=== PATIENT | male | born 1960 | race Caucasian/White ===

== ENCOUNTER 2020-10-04 10:14 | Inpatient (IN) | payer OTHER, SELFPAY ==
[2020-10-04] VITALS (11 sets, daily range): BP systolic 164–179; BP diastolic 97–115; PULSE 87–101; RESP 15–24; TEMP 36.2–37.6; O2SAT 94–100; BMI 33.7; BMI 33.5
--- NOTE | ~2020-10-04 | US_ITS ---
EXAMINATION:US venous doppler LE BI INDICATION:Elevated d-dimer. Dyspnea. Leg tenderness. TECHNIQUE: Multiple grayscale, color flow and Doppler images of the right and left lower extremity de ep venous systems were obtained and reviewed. COMPARISON:Ultrasound dated 05/19/2011 FINDINGS: The common femoral, superficial femoral and popliteal veins demonstrate normal respiratory variation, augmentation and compressibility. Color flow is also seen within the posterior tibial, pe roneal, greater saphenous and profunda veins. IMPRESSION: 1: No lower extremity deep venous thrombosis. Reviewed, dictated and finalized at location B.
--- NOTE | ~2020-10-04 | XR_ITS ---
EXAMINATION: XR chest 2V EXAM DATE: 10/04/2020 11:42 INDICATION: Shortness of breath. TECHNIQUE: Frontal and lateral projections of the chest obtained and reviewed. Comparison is made to prior examination from 06/28/2018. FINDINGS: There is a dual lead pacemaker/AICD seen with leads projecting over the expected locations of the right atrial appendage and right ventricle. The lungs are clear. There are no pleural effusi ons. Cardiomediastinal silhouette is normal. There is no pneumothorax suspected. The bones and sof t tissues are unremarkable. IMPRESSION: No acute cardiopulmonary findings. Reviewed, dictated and finalized at location A.
--- NOTE | ~2020-10-04 | XR_ITS ---
EXAMINATION: XR foot RT min 3V EXAM DATE: 10/04/2020 13:28 INDICATION: Wound to bottom of foot, along distal 1st metatarsal. TECHNIQUE: Right foot dorsoplantar, lateral and oblique projections obtained and reviewed. There is no prior study for comparison. FINDINGS: Right metatarsal bones unremarkable. There are no bony erosions identified. There is deep soft tissue ulceration below the 1st metatarsal head. There are no acute fractures or dislocations id entified. There is no subcutaneous gas. There are no radiopaque foreign bodies. 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 IMPRESSION: Soft tissue ulceration. No findings to suggest osteomyelitis. Reviewed, dictated and finalized at location A.
--- NOTE | ~2020-10-04 | CT_ITS ---
EXAMINATION: CTA chest PE protocol EXAM DATE: 10/04/2020 15:29 INDICATION: Shortness of breath and elevated d-dimer. TECHNIQUE: Spiral CTA of the chest (pulmonary arteries) was performed with 100 cc Omnipaque 350 intr avenous contrast injection. Images were acquired during the pulmonary arterial phase. Coronal maxi mum intensity projection 3D-reconstructions were created by the technologist on dedicated workstation . Axial, coronal and sagittal reformatted images were reviewed. The dose-length product (DLP) for t his examination was 939.59 mGy-cm. The exposure was tailored according to patient size (auto mA exp osure control), and iterative reconstruction (ASIR) was used as additional dose reduction technique. There is no prior study for comparison. FINDINGS: Pulmonary arteries are well opacified and without intraluminal filling defects. There is b orderline cardiomegaly and pulmonary vascular congestion. There are small bilateral pleural effusions . There may be mild pulmonary edema. Pacemaker/AICD device. No thoracic aortic dissection. There is 5 mm right upper lobe groundglass nodule on image 38. Tracheobronchial tree is patent. There is no mediastinal, hilar or axillary lymphadenopathy. There is no pneumothorax. Probable 4 mm left nep hrolithiasis. There are hepatic cysts. There is mild to moderate thoracic spondylosis without osteob lastic or osteolytic lesions identified. IMPRESSION: 1. No pulmonary emboli. 2. Possible mild CHF exacerbation. 3. Small pleural effusions. Reviewed, dictated and finalized at location A.
--- NOTE | 2020-10-04 10:19 | ECG_ITS ---
Measurements Intervals [place] Rate: 87 P: 94 DE: 182 QRS: -63 QRSD: 197 T: 112 QT: 464 QTc: 561 Interpretive Statements ELECTRONIC ATRIAL PACEMAKER WITH INHIBITION ELECTRONIC VENTRICULAR PACEMAKER VENTRICULAR PREMATURE COMPLEX NO FURTHER INTERPRETATION IS POSSIBLE ATYPICAL ECG Electronically Signed On 10-04-2020 10:26:33 CDT by Peewee Vargas D.O.
[2020-10-04 10:56] LABS: Basophils Absolute Auto 0.1 K/mm3 (0.0-0.1); Eosinophils Absolute Auto 0.1 K/mm3 (0-0.3); Eosinophils Percent Auto 1.9 % (0-4.4); Hematocrit 42.2 % (42.0-52.0); Hemoglobin 13.9 g/dL (14.0-18.0); Immature Granulocyte Absolute 0.03 K/mm3 (0.00-0.031); Immature Granulocyte Percent A 0.4 % (0-0.5); Lymphocytes Absolute Auto 1.17 K/mm3 (0.9-3.2); Lymphocytes Percent Auto 16.9 % (18.3-44.2); Mean Corpuscular HGB Conc 32.9 g/dl (32-36); Mean Corpuscular Hemoglobin 33.4 pg (26-34); Mean Corpuscular Volume 101.4 fl (80-100); Mean Platelet Volume 9.6 fl (7.4-10.4); Monocytes Absolute Auto 0.5 K/mm3 (0.1-0.6); Monocytes Percent Auto 7.6 % (2.6-8.5); Neutrophils Percent Auto 72.2 % (45.5-73.1); Platelet Count Result 281 k/mm3 (150-375); Red Blood Count 4.16 M/mm3 (4.6-6.20); Red Cell Distribution Width 14.7 % (11.5-14.5); White Blood Count 6.9 K/mm3 (4.5-10.0)
[2020-10-04 11:11] LABS: Anion Gap 6 mmol/L (8-16); Blood Urea Nitrogen 8 mg/dL (9-20); Calcium 8.4 mg/dL (8.4-10.2); Carbon Dioxide 33 mmol/L (22-30); Chloride 103 mmol/L (98-107); Estimated CRCL calculation 70 ml/min; Estimated Glomerular Filt Rate 56; Glucose 135 mg/dL (75-110); INR 1.1; Potassium 3.4 mmol/L (3.4-5.0); Prothrombin Time 14.8 Seconds (11.1-14.7); Sodium 142 mmol/L (137-145)
[2020-10-04 11:13] LABS: Partial Thromboplastin Time 28.4 SECONDS (22.3-36.8)
[2020-10-04 11:29] LABS: Troponin I 0.024 ng/mL (0.000-0.034)
[2020-10-04 12:50] LABS: NT Pro B Type Natriuretic Pept 4300 pg/mL (5-100)
--- NOTE | 2020-10-04 13:27 | ED.SOB ---
HPI - SOB/Dyspnea General Chief Complaint: Shortness of Breath/Dyspnea Stated Complaint: SOB Time Seen by Provider: 10/04/20 12:21 Source: patient Mode of arrival: ambulatory Limitations: no limitations History of Present Illness HPI Narrative: 60-year-old male History of diabetes, A. fib, pacer, and stents Presents for evaluation of progressive dyspnea over the last week or 2 Particularly bothersome at night when he is trying to sleep he feels like his sinuses start draining and then he starts coughing and he wakes up very short of breath He does not have a cough or a fever He denies chest pain He does have some degree of chronic swelling in both of his legs which is minimally changed if at all He did also notes a cut on the bottom of his right foot since the start of the year which he says has been slow to heal and his neighbor's been bothering him to get it looked at Related Data Home Medications Medication Instructions Recorded Confirmed aspirin 81 mg PO DAILY 10/04/20 atorvastatin 20 mg PO DAILY 10/04/20 cetirizine mg 10/04/20 10/04/20 diltiazem HCl 60 mg PO TID 10/04/20 montelukast 10 mg PO HS 10/04/20 tamsulosin mg PO 10/04/20 Allergies Allergy/AdvReac Type Severity Reaction Status Date / Time No Known Allergies Allergy Verified 10/04/20 11:52 Review of Systems Review of Systems: All systems reviewed & are unremarkable except as noted in HPI and below Constitutional: Constitutional: Reports no additional constitutional complaints, Denies chills, Denies fever(s) and Denies headache(s) Eyes: Eyes: Reports no additional eye complaints and Denies change in vision ENT: Denies headache(s), Reports nasal congestion and Denies sore throat Cardiovascular: Cardiovascular: Denies chest pain and Denies dyspnea Respiratory: Respiratory: Denies cough and Reports dyspnea Gastrointestinal: Gastrointestinal: Denies abdominal pain, Denies diarrhea and Denies vomiting Genitourinary: Genitourinary: Denies dysuria and Denies urinary frequency Musculoskeletal: Musculoskeletal: Denies deformity, Denies arthralgias, Denies joint swelling and Denies numbness Integumentary/Breasts: Skin/Breast: Denies rash, Reports skin ulcer and Denies wounds Neurologic: Denies headache(s), Denies focal weakness and Denies numbness Psychiatric: Psychiatric: Reports no additional psychiatric complaints Endocrine: Endocrine: Reports no additional endocrine complaints Hematologic/Lymphatic: Hematologic/Lymphatic: Reports no additional hematologic/lymphatic complaints Allergic/Immunologic: Allergic/Immunologic: Reports no additional allergic/immunologic complaints [facility] Family History Family History (Updated 12/21/18 @ 09:21 by DOCTOR UNKNOWN) Mother Family history of blood dyscrasia Social History Social History Smoking status: Light tobacco smoker Second hand tobacco smoke exposure: No Alcohol intake: current Exam Const: General: cooperative and alert Orientation/consciousness: patient oriented x3 (alert) HENMT: Head: normal to inspection, normocephalic and atraumatic Ears: external ears normal General nose exam: no epistaxis Eyes: Conjunctivae: conjunctivae normal EOM: EOMs intact bilaterally Neck: Neck: normal visual inspection, supple and no JVD Other: No JVD Chest: Chest palpation & inspection: no tenderness Resp: Effort & Inspection: normal respiratory effort and not labored Auscultation: clear to auscultation bilaterally, no rales, no rhonchi, no wheezes and other (BS =) Cardio: Rate: regular rate Rhythm: regular rhythm Heart sounds: no murmurs GI: GI Palp: Yes Soft to palpation and No Tenderness to palpation present (GI) Skin: General skin exam: normal color and no rashes or lesions noted Neuro: General: patient oriented x3 (alert) and moves all extremities Speech: normal speech Extrem: Other: There is 1+ edema bilaterally Venous stasis changes on the right P
--- NOTE | 2020-10-04 14:08 | PC.NURSE ---
Pt requesting oxygen administration for comfort, states he is feeling SOB. Placed on 1L NC at this time.
[2020-10-04 14:45] LABS: D Dimer 2.19 ug/mL (<0.48)
[2020-10-04 15:16] LABS: Erythrocyte Sedimentation Rate 64 mm/hr (0-20)
[2020-10-04 15:55] LABS: Hemoglobin A1C 5.6 % (<5.7)
--- NOTE | 2020-10-04 15:57 | PC.NURSE ---
EDP made aware of patient's consistent high BP. No new orders at this time.
[2020-10-04] MEDS: dilTIAZem HCL 60 MG TABLET PO (16:22)
--- NOTE | 2020-10-04 17:08 | PC.NURSE ---
Spoke with Lakeshia on 3rd Med/Surg and attempted to give report. This RN informed the nurse taking report was in the middle of a discharge and would be done pretty soon . States they will call when she is finished.
[2020-10-04 17:39] LABS: Troponin I 0.021 ng/mL (0.000-0.034)
--- NOTE | 2020-10-04 18:09 | ADMGEN ---
This patient, Joselito Lamar Jr., was admitted to [facility] Surg Room 331-01. Patient/family oriented to hospital policies and general routines including ID bracelet, bed and alarms, visiting hours, pain management, procedures, bathroom and other care routines, personal items, smoking policy, room service/diet, and visiting hours. Information on how to activate the Rapid Response Team has been discussed. Patient/Family are encouraged to report perceived risks to care and to ask questions if they do not understand what they are told or what they should do.
[2020-10-04 18:31] LABS: CRP 1.5 mg/dL (<1.0)
[2020-10-04 20:38] LABS: Glucose Point of Care 164 (65-105)
[2020-10-04] MEDS: MONTELUKAST SODIUM 10 MG TABLET PO (23:20)
[2020-10-04] MEDS: FUROSEMIDE INJ 40 MG/4 ML VIAL IV PUSH (23:20)
[2020-10-04] MEDS: lisinopriL 20 MG TABLET PO (23:20)
[2020-10-05] VITALS (9 sets, daily range): BP systolic 121–177; BP diastolic 68–97; PULSE 78–96; RESP 16–18; TEMP 36.4–37.3; O2SAT 94–98
--- NOTE | 2020-10-05 03:05 | PM.IMHP ---
H&P: HPI History of Present Illness Date/Time: 10/05/20 03:05 Chief Complaint: Shortness of breath Narrative: 60-year-old male with past medical history of atrial fibrillation, hypertension and diabetes who presented to the ER due to increasing shortness of breath. The patient reports that he has not felt well for about 1 month. He has been feeling more fatigued and having some mild shortness of breath. Over the last 2 weeks he is been noticing orthopnea, paroxysmal nocturnal dyspnea and increasing lower extremity swelling. He denies any chest pain. He reports that he has been trying to sleep sitting up vanc as when he lays down he thinks his sinuses start draining any start coughing. He denies any fevers or chills. He has not had any known ill contacts. He lives alone. He has noticed that his lower extremities have been more swollen since June but worsening over the last couple of weeks. He denies a history of CHF in fact had an echocardiogram through [facility] July of 2019 with normal ejection fraction. He had an echo in 2015 that demonstrated grade 1 diastolic dysfunction. He reports that he is not on any Lasix at home. He has also not been taking his talus am as directed because it was causing him to have some upset stomach. He does have history of snoring. He does not know if he stops breathing at night. He has never been tested for sleep apnea. He does have a wound to his right foot. He reports that back in June he stepped on a piece of glass. 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 He has not noticed any increased drainage from the wound. He has not had any fevers or chills. He reports chronic pins and needle sensation in his feet due to his diabetic peripheral neuropathy. He reports that his Accu-Cheks are usually around 120. He does not know what his last hemoglobin A1c value. Review of Systems Review of Systems: Narrative: 12 systems were reviewed with pertinent positives and negatives per HPI. Except as documented in the HPI, all other systems were reviewed and are negative. [facility] Past Medical History Medical History (Updated 10/05/20 @ 04:48 by Chantell James DO) Anxiety Bilateral cataracts Maturing BPH loc w urin obs/LUTS Chronic atrial fibrillation Coronary artery disease involving levelock heart without angina pectoris Depression Diabetes mellitus Diabetic peripheral neuropathy Dyslipidemia Essential hypertension Gout Kidney stones Parkinsons disease Surgical History Surgical History (Updated 10/05/20 @ 04:40 by Chantell James DO) History of bilateral carpal tunnel release History of heart artery stent (~2008) History of permanent cardiac pacemaker placement (~2015) Worth Hx of tonsillectomy S/P cubital tunnel release Family History Family History Mother Family history of blood dyscrasia Social History Social History (Updated 10/05/20 @ 04:44 by Chantell James DO) Social History: He is and lives alone. He has 4 children 1 of which in a motor vehicle collision. He used to work for a [employer] company but is now on disability. 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 He smokes about 10 cigarettes a day and has smoked since his early 20s. He denies any significant alcohol use. Primary care physician: Dr. Jay Hinkle Code status: Full code Surrogate decision maker: Aniyah Orr (sister) Years smoked: 25 Smoking status: Current some day smoker Tobacco type: cigarettes Second hand tobacco smoke exposure: No Alcohol intake: current Drinks per week: 3 Substance use: never Spiritual care concerns: No Meds Home Medications and Allergies Home Medications Medication Instructions [place]
[2020-10-05] MEDS: hydrALAZINE HCL 20 MG/ML VIAL 10 MG IV PUSH (05:04)
[2020-10-05 06:22] LABS: Hematocrit 44.6 % (42.0-52.0); Mean Corpuscular HGB Conc 33.6 g/dl (32-36); Mean Corpuscular Volume 101.1 fl (80-100); Mean Platelet Volume 9.7 fl (7.4-10.4); Platelet Count Result 295 k/mm3 (150-375); Red Blood Count 4.41 M/mm3 (4.6-6.20); Red Cell Distribution Width 14.7 % (11.5-14.5); White Blood Count 7.8 K/mm3 (4.5-10.0)
[2020-10-05 06:38] LABS: Anion Gap 4 mmol/L (8-16); Blood Urea Nitrogen 8 mg/dL (9-20); Calcium 8.2 mg/dL (8.4-10.2); Carbon Dioxide 33 mmol/L (22-30); Chloride 100 mmol/L (98-107); Estimated CRCL calculation 70 ml/min; Estimated Glomerular Filt Rate 56; Glucose 130 mg/dL (75-110); Potassium 3.1 mmol/L (3.4-5.0); Sodium 137 mmol/L (137-145)
[2020-10-05 07:24] LABS: Hemoglobin A1C 5.8 % (<5.7)
[2020-10-05 08:10] LABS: Glucose Point of Care 105 (65-105)
[2020-10-05] MEDS: POTASSIUM CHLORIDE 20 MEQ TABLET 40 MEQ PO (09:20)
[2020-10-05] MEDS: ASPIRIN 81 MG ENTERIC TABLET PO (09:21)
[2020-10-05] MEDS: metFORMIN HCL 500 MG TABLET 1000 MG PO (09:21)
[2020-10-05] MEDS: ATORVASTATIN 20 MG TABLET PO (09:22)
[2020-10-05] MEDS: dilTIAZem HCL CD 180 MG CAP.ER.24H PO (09:22)
[2020-10-05] MEDS: FOLIC ACID 1 MG TABLET PO (09:23)
[2020-10-05] MEDS: MULTIVITAMINS THERAPEUTIC TAB (*BKC) 1 TABLET PO (09:24)
[2020-10-05] MEDS: MAGNESIUM OXIDE 400 MG TABLET PO ×2 (09:24→16:44)
[2020-10-05] MEDS: LORATADINE 10 MG TABLET PO (09:24)
[2020-10-05] MEDS: TAMSULOSIN HCL 0.4 MG CAPSULE PO (09:25)
[2020-10-05] MEDS: THIAMINE HCL 100 MG TABLET PO (09:25)
[2020-10-05] MEDS: lisinopriL 20 MG TABLET PO (09:27)
[2020-10-05] MEDS: FUROSEMIDE INJ 40 MG/4 ML VIAL IV PUSH ×2 (09:27→16:44)
[2020-10-05 12:11] LABS: Glucose Point of Care 101 (65-105)
--- NOTE | 2020-10-05 14:50 | PM.IMPN ---
Progress Note: A&P Assessment and Plan (1) CHF (congestive heart failure): Qualifiers: Heart failure chronicity: acute Heart failure type: unspecified Qualified Code(s): I50.9 - Heart failure, unspecified Code(s): I50.9 - Heart failure, unspecified Status: Acute Assessment and Plan: History and CTA consistent with CHF although patient does not have a history of this that I am aware of -he has a history of AFib, pacemaker and stents as well as diabetes which makes him high risk for CHF -will order echo, bnp 4300 -continue Lasix, it is improving his dyspnea on exertion and resolved his lower extremity edema -he has no chest pain at this time, troponins negative x3 -continue home aspirin (2) Uncontrolled hypertension: Code(s): I10 - Essential (primary) hypertension Status: Acute Assessment and Plan: Last blood pressure 141/91 -he was running higher earlier in the stay and was up to 179/97 at 1 point -continue home diltiazem -Lasix and lisinopril added at this time (3) Diabetic foot ulcer: Qualifiers: Diabetes mellitus type: type 2 Diabetic foot ulcer location: midfoot Laterality: right Non-pressure ulcer stage: with muscle involvement without evidence of necrosis Qualified Code(s): E11.621 - Type 2 diabetes mellitus with foot ulcer; L97.415 - Non-pressure chronic ulcer of right heel and midfoot with muscle involvement without evidence of necrosis Code(s): E11.621 - Type 2 diabetes mellitus with foot ulcer; L97.509 - Non-pressure chronic ulcer of other part of unspecified foot with unspecified severity Status: Acute Assessment and Plan: Await Wound care's recommendations -x-ray does not reveal any osteomyelitis, CRP only 1.5 -continue Zosyn at this time but narrow when indicated. Patient is having some diarrhea we associated with antibiotics. No C diff suspected (4) Diabetes mellitus: Code(s): E11.9 - Type 2 diabetes mellitus without complications Status: Inactive Assessment and Plan: Last glucose 101 -continue metformin -will controlled with an A1c of 5.8 (5) Chronic atrial fibrillation: Code(s): I48.20 - Chronic atrial fibrillation, unspecified Status: Acute Assessment and Plan: Paced rhythm on telemetry -continue Xarelto and diltiazem Additional Plan Because of the shortness of breath, patient being tested for COVID. Continue isolation until resulted. Time Spent With Patient Time with patient: 25 - 35 minutes Subjective Date/time seen: 10/05/20 14:50 Interval history: Pt is a 60-year-old male here for shortness of breath and dyspnea on exertion. Patient was seen today and states he is feeling better than yesterday. He is able to walk around without as much shortness of breath which is an improvement since the last few weeks. He continues to have an occasional dry cough but nothing significant. He is still not able to lay completely flat but again, feels better. His lower extremity edema has improved. He started having diarrhea since being here. He denies chest pain, fevers or chills. He has an ulcer at the bottom of his right foot. Review of Systems Review of Systems: All systems reviewed & are unremarkable except as noted in HPI and below Exam Narrative: Exam Narrative: General: Well developed well nourished patient in NAD HEENT: normocephalic Neck: supple Neuro: Alert and oriented x4 CV:RRR, telemetry showing paced rhythm Resp:CTA, no crackles heard on exam although disposable stethoscope lowers sensitivity Abd: Soft, non distended. No pain to palpation. Positive bowel sounds Extremities: Lower extremity shows chronic venous stasis discoloration and no edema. Ulcer noted on the plantar aspect of the right foot Objective Data Vital Signs Vital Signs: Vital Signs - 24 hr 10/04/20 14:55 10/04/20 16:19 10/04/20 17:04 Temperature Pulse Rate 9
[2020-10-05 14:59] LABS: SARS-CoV-2 RNA PCR Negative
[2020-10-05] MEDS: RIVAROXABAN 15 MG TABLET PO (16:45)
[2020-10-05 17:04] LABS: Glucose Point of Care 135 (65-105)
[2020-10-05] MEDS: SILVERGEL (ELTA) 45 ML 1 APPLIC TOPICAL (17:15)
[2020-10-05] MEDS: MONTELUKAST SODIUM 10 MG TABLET PO (20:20)
[2020-10-05 21:57] LABS: Glucose Point of Care 155 (65-105)
[2020-10-06] VITALS: PULSE 85
--- NOTE | 2020-10-06 | ECHO_ITS ---
Patient Info Name: Joselito Lamar Age: 60 years : 1960 Gender: Male Ht: 73 in Wt: 253 lbs BSA: 2.47 m2 HR: 103 bpm BP: 153 / 89 mmHg Heart Rhythm: Paced Technical Quality: Good Exam Date: 10/06/2020 8:17 AM Exam Location: [facility] Pulmonary Exam Room: 331 Patient Status: Inpatient Admit Date: 10/05/2020 Staff Ordering Physician: Nuha Owens PA-C Ship Steward: Melissa Solorzano RDCS Attending Provider: Nuha Owens PA-C Referring Physician: Graciela QUIGLEY; Exam Type: CA echo doppler color flow Study Info Indications - AFIB CHF PPM SOB Complete two-dimensional, color flow and Doppler transthoracic echocardiogram is performed. Summary 1. Complete two-dimensional, color flow and Doppler transthoracic echocardiogram is performed. 2. Left ventricular chamber dimension is mildly enlarged. 3. Left ventricular systolic function is moderately reduced, estimated at 35-40%. 4. Linear artifact in right ventricle suggestive of catheter(s), pacemaker lead(s), or ICD lead(s). 5. There is mild mitral valve regurgitation. Left Ventricle Left ventricular chamber dimension is mildly enlarged. Left ventricular systolic function is moderately reduced, estimated at 35-40%. The left ventricular diastolic function is indeterminate. Right Ventricle Right ventricular chamber dimension is normal. Linear artifact in right ventricle suggestive of catheter(s), pacemaker lead(s), or ICD lead(s). Left Atria Left atrial chamber dimension is mildly enlarged. Right Atria Right atrial chamber dimension is mildly enlarged. Linear artifact in the right atrium suggestive of catheter(s), pacemaker lead(s), or ICD lead(s). Aortic Valve The aortic valve is normal. Pulmonic Valve The pulmonic valve is normal. Mitral Valve The mitral valve has normal leaflets. There is mild mitral valve regurgitation. The mitral valve annulus is mildly calcified. Tricuspid Valve The tricuspid valve leaflets are normal. Pericardium/Pleural The pericardium appears normal. Aorta The aortic root size at the sinus of Valsalva is normal. Left Ventricular Outflow Tract Name Value Normal LVOT 2D LVOT Diameter 2.1 cm LVOT Doppler LVOT Peak Gradient 5 mmHg LVOT Mean Gradient 3 mmHg LVOT VTI 20 cm LVOT VTI/AV VTI Ratio 0.8 LVOT Stroke Volume 66 ml LVOT CO 16.1 l/min LVOT CI 6.5 l/min/m2 Pulmonic Valve Name Value Normal PV Doppler PV Peak Gradient 4 mmHg Mitral Valve Name Value Normal
[2020-10-06 04:00] VITALS: PULSE 82
[2020-10-06 06:00] VITALS: BP 153/89; PULSE 86; RESP 18; TEMP 36.5; O2SAT 96
[2020-10-06 07:24] LABS: Hematocrit 44.8 % (42.0-52.0); Hemoglobin 14.9 g/dL (14.0-18.0); Mean Corpuscular HGB Conc 33.3 g/dl (32-36); Mean Corpuscular Hemoglobin 33.6 pg (26-34); Mean Corpuscular Volume 101.1 fl (80-100); Mean Platelet Volume 9.8 fl (7.4-10.4); Platelet Count Result 287 k/mm3 (150-375); Red Blood Count 4.43 M/mm3 (4.6-6.20); Red Cell Distribution Width 14.8 % (11.5-14.5); White Blood Count 6.7 K/mm3 (4.5-10.0)
[2020-10-06 07:30] LABS: Alanine Aminotransferase 11 U/L (4-50); Albumin Level 3.4 g/dL (3.5-5.1); Alkaline Phosphatase 124 U/L (38-126); Anion Gap 5 mmol/L (8-16); Aspartate Amino Transferase 28 U/L (17-59); Bilirubin,Total 3.3 mg/dL (0.2-1.3); Blood Urea Nitrogen 13 mg/dL (9-20); Calcium 8.7 mg/dL (8.4-10.2); Carbon Dioxide 33 mmol/L (22-30); Chloride 98 mmol/L (98-107); Estimated CRCL calculation 65 ml/min; Estimated Glomerular Filt Rate 51; Glucose 118 mg/dL (75-110); Magnesium 1.5 mg/dL (1.6-2.3); Sodium 136 mmol/L (137-145)
[2020-10-06 07:46] LABS: Glucose Point of Care 102 (65-105)
[2020-10-06 08:00] VITALS: PULSE 85
[2020-10-06] MEDS: FOLIC ACID 1 MG TABLET PO (08:28)
[2020-10-06] MEDS: ATORVASTATIN 20 MG TABLET PO (08:28)
[2020-10-06] MEDS: SILVERGEL (ELTA) 45 ML 1 APPLIC TOPICAL (08:28)
[2020-10-06] MEDS: MAGNESIUM OXIDE 400 MG TABLET PO (08:28)
[2020-10-06] MEDS: MULTIVITAMINS THERAPEUTIC TAB (*BKC) 1 TABLET PO (08:28)
[2020-10-06] MEDS: lisinopriL 20 MG TABLET PO (08:29)
[2020-10-06] MEDS: dilTIAZem HCL CD 180 MG CAP.ER.24H PO (08:29)
[2020-10-06] MEDS: TAMSULOSIN HCL 0.4 MG CAPSULE PO (08:29)
[2020-10-06] MEDS: FUROSEMIDE 40 MG TABLET PO (08:29)
[2020-10-06] MEDS: THIAMINE HCL 100 MG TABLET PO (08:29)
[2020-10-06] MEDS: metFORMIN HCL 500 MG TABLET 1000 MG PO (08:29)
[2020-10-06] MEDS: LORATADINE 10 MG TABLET PO (08:30)
[2020-10-06] MEDS: ASPIRIN 81 MG ENTERIC TABLET PO (08:30)
[2020-10-06 08:34] LABS: Folic Acid 11.9 ng/mL (2.76->20)
--- NOTE | 2020-10-06 10:36 | PM.DS ---
DS: Admitting Diagnosis Admitting Diagnosis Admitting Diagnosis: [place]CHRAN DS: Discharge Diagnosis Discharge Diagnosis (1) CHF (congestive heart failure): Qualifiers: Heart failure chronicity: acute Heart failure type: unspecified Qualified Code(s): I50.9 - Heart failure, unspecified Code(s): I50.9 - Heart failure, unspecified Status: Acute Assessment and Plan: CTA on admission suggested heart failure which was consistent with the patient's symptom. -echocardiogram revealed an EF of 35-40% -patient had absolutely no chest pain and troponins were negative x3 -he received IV Lasix while hospitalized which resolved his symptoms -he has a history of AFib, pacemaker and stents as well as diabetes -home medications were adjusted due to systolic dysfunction; Lasix, lisinopril and metoprolol have been started -patient has not had any history of chest pain or ACS symptoms. 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 -I called their exchange and spoke with the nurse practitioner Sintia who agreed with outpatient follow-up and will get him in next week (2) Uncontrolled hypertension: Code(s): I10 - Essential (primary) hypertension Status: Acute Assessment and Plan: Last blood pressure 153/89 -home medications adjusted as above (3) Diabetic foot ulcer: Qualifiers: Diabetes mellitus type: type 2 Diabetic foot ulcer location: midfoot Laterality: right Non-pressure ulcer stage: with muscle involvement without evidence of necrosis Qualified Code(s): E11.621 - Type 2 diabetes mellitus with foot ulcer; L97.415 - Non-pressure chronic ulcer of right heel and midfoot with muscle involvement without evidence of necrosis Code(s): E11.621 - Type 2 diabetes mellitus with foot ulcer; L97.509 - Non-pressure chronic ulcer of other part of unspecified foot with unspecified severity Status: Acute Assessment and Plan: No active infection on exam -patient was educated that it is very important for him to follow-up with his primary care physician so somebody monitors his wound as this could turn into osteomyelitis if he does not take care of it -x-ray does not reveal any osteomyelitis, CRP only 1.5 (4) Diabetes mellitus: Code(s): E11.9 - Type 2 diabetes mellitus without complications Status: Inactive Assessment and Plan: Last glucose 97 -continue metformin -will controlled with an A1c of 5.8 (5) Chronic atrial fibrillation: Code(s): I48.20 - Chronic atrial fibrillation, unspecified Status: Acute Assessment and Plan: Paced rhythm on telemetry -continue Xarelto and metoprolol started (6) Acute systolic heart failure: Code(s): I50.21 - Acute systolic (congestive) heart failure Status: Acute Assessment and Plan: As above DS: Summary Hospital Course Hospital Course: Patient is a 60-year-old male the history of atrial fibrillation, coronary artery disease with stenting over 20 years ago, hypertension, diabetes and foot wound who presented emergency room for progressive dyspnea on exertion over the last few weeks as well as lower extremity swelling. Vitals in the ER were temperature 36.2? C, pulse 87, respiratory rate 16, blood pressure 167/102, pulse ox 97 on room air. CBC within normal limits. BMP relatively normal. D-dimer was elevated and a CTA was performed which showed likely congestive heart failure, no PE. Lower extremity Dopplers were negative. BNP elevated 4300. Troponins negative x3. Foot x-ray showed soft tissue ulceration no findings of osteomyelitis. Patient was admitted to the hospitalist service and started on IV Lasix therapy. This improved his shortness of breath. The day of discharge he was able to walk to the bathroom without shortness of breath and also lay flat which he has not been able to do. His echo showed new systolic heart function and his medi
[2020-10-06] MEDS: MAGNESIUM SULF 2 GM/WATER 50ML 2 GM/50 ML BAG IVPB (11:59)
[2020-10-06 12:00] VITALS: PULSE 88
[2020-10-06 12:27] LABS: Glucose Point of Care 97 (65-105)
[2020-10-06] MEDS: POTASSIUM CHLORIDE 20 MEQ TABLET 40 MEQ PO (12:40)
== END 2020-10-06 14:03 | disposition home or self-care (01) | DRG 194 ==
LOC: ANHED 16:13 → ANH3MEDSUR 18:39
PROVIDERS: General Practice; Internal Medicine; Physician Assistant; Admitting Provider Internal Medicine; Emergency Provider Emergency Medicine; PCP Internal Medicine; Visit Provider Internal Medicine
DX: I11.0 Hypertensive heart disease with heart failure (principal); I50.21 Acute systolic (congestive) heart failure; Z20.822 Contact with and (suspected) exposure to COVID-19; E11.42 Type 2 diabetes mellitus with diabetic polyneuropathy; E11.621 Type 2 diabetes mellitus with foot ulcer; L97.419 Non-pressure chronic ulcer of right heel and midfoot with unspecified severity; I25.10 Atherosclerotic heart disease of native coronary artery without angina pectoris; N40.1 Benign prostatic hyperplasia with lower urinary tract symptoms; I48.20 Chronic atrial fibrillation, unspecified; E78.5 Hyperlipidemia, unspecified; M10.9 Gout, unspecified; G20 Parkinson's disease; F17.210 Nicotine dependence, cigarettes, uncomplicated; Z95.5 Presence of coronary angioplasty implant and graft; Z95.0 Presence of cardiac pacemaker
CPT/HCPCS: 36415; 71046; 71275; 73630; 80048; 80076; 82607; 82746; 82948; 83036; 83735; 83880; 84484; 85025; 85027; 85380; 85610; 85652; 85730; 86140; 93005; 93306; 93970; 96365; 96366; 96375; 99285; A9270; C9803; G0378; G0379; J0360; J1940; J2543; J3475; Q9967; U0003; U0005

== ENCOUNTER 2023-12-26 03:57 | Emergency (ER) | payer MEDICARE, MEDICAID, SELFPAY ==
[2023-12-26 03:58] VITALS: BP 126/94; PULSE 80; RESP 18; TEMP 36.6; O2SAT 100
[2023-12-26 04:06] VITALS: O2SAT 98
[2023-12-26 05:04] VITALS: O2SAT 96
[2023-12-26 05:15] VITALS: O2SAT 96
[2023-12-26 05:47] VITALS: BP 154/76; PULSE 76; RESP 17; O2SAT 98
--- NOTE | 2023-12-26 05:58 | ED.GENADULT ---
HPI - General Adult General Chief complaint: Wound/Laceration Stated complaint: VARICOSE VEIN RUPTURE Time Seen by Provider: 12/26/23 05:46 History of Present Illness HPI narrative: This is a 63-year-old male with varicose veins presenting after he scratched the pain on his leg and had some bleeding. This is abdomen the past. Bleeding was controlled by time he got to the emergency department. Patient's is on xarelto. Related Data Home Medications Medication Instructions Recorded Confirmed atorvastatin 20 mg tablet 20 mg PO DAILY 10/04/20 12/09/23 diltiazem HCl 90 mg tablet 90 mg PO BID 07/17/22 12/09/23 rivaroxaban 20 mg tablet (Xarelto) 20 mg PO DAILY 07/17/22 12/09/23 carbidopa-levodopa PO 03/19/23 12/09/23 Allergies Allergy/AdvReac Type Severity Reaction Status Date / Time No Known Allergies Allergy Verified 12/26/23 04:02 [facility] Past Medical History Medical History (Updated 12/26/23 @ 06:02 by Quincy Snow MD) Anemia Anxiety Asthma Bilateral cataracts Maturing BMI 40.0-44.9, adult BPH (benign prostatic hyperplasia) BPH loc w urin obs/LUTS Chronic atrial fibrillation Coronary artery disease involving [place] heart without angina pectoris Depression Diabetes mellitus Diabetes mellitus with neuropathy Diabetic foot ulcer Diabetic peripheral neuropathy Dyslipidemia Elevated liver enzymes Essential hypertension Fatigue Folate deficiency Gout Hyperlipidemia Kidney stones Morbid obesity with BMI of 45.0-49.9, adult Nocturia Parkinsons disease Seasonal allergies Skin abnormalities Stasis dermatitis Type 2 diabetes mellitus Uncontrolled hypertension Surgical History Surgical History History of bilateral carpal tunnel release History of heart artery stent (~2008) History of permanent cardiac pacemaker placement (~2015) [place] Hx of tonsillectomy S/P cubital tunnel release Family History Family History Mother Family history of blood dyscrasia Grandparent Alcoholism Social History Social History Social History: He is and lives alone. He has 4 children 1 of which in a motor vehicle collision. 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 He smokes about 10 cigarettes a day and has smoked since his early 20s. He denies any significant alcohol use. Primary care physician: Treasure Johns NP Code status: Full code Surrogate decision maker: Aniyah Orr (sister) Smoking packs per day: 0.5 Smoking cigarettes per day: 10.0 Years smoked: 25 Smoking pack-years: 12.50 Smoking status: Former smoker Tobacco type: cigarettes Second hand tobacco smoke exposure: No Alcohol intake: current Alcohol use details: Occasionally Substance use: never Substance use type: does not use Lack of Transportation: No Lack of Food: Never True Current Housing: I Have Housing Concerned About Future Housing: No Difficulty Paying Gas/Electric Bills: YES Difficulty Paying for Meds: No Currently Unemployed: No Education: High School Diploma/GED Difficulty w/ Childcare or Family Care: No Spiritual care concerns: No Exam Narrative: APPEARANCE: No apparent distress. Head: atraumatic. EYES: EOMI, NOSE: Atraumatic NECK: Trachea midline RESPIRATORY: No increased rate of breathing CARDIOVASCULAR: RRR, lipodermatosclerosis of the lower extremities. Small excoriation over the right calf. No active bleeding ABDOMINAL: Non-distended MUSCULOSKELETAl: No obvious deformities NEURO: Alert. Moving 4/4 extremities SKIN:: Warm, dry. Normal color PSYCHIATRIC: Normal affect Course Vital Signs Vital signs: Vital Signs Temperature 97.8 F 12/26/23 03:58 Pulse Rate 80 12/26/23 03:58 Respiratory R
== END 2023-12-26 06:18 | disposition home or self-care (01) ==
PROVIDERS: Emergency Provider Emergency Medicine; PCP Nurse Practitioner Family
DX: I83.891 Varicose veins of right lower extremity with other complications (principal); G20.A1 Parkinson's disease without dyskinesia, without mention of fluctuations; I48.20 Chronic atrial fibrillation, unspecified; I25.10 Atherosclerotic heart disease of native coronary artery without angina pectoris; I10 Essential (primary) hypertension; E11.42 Type 2 diabetes mellitus with diabetic polyneuropathy; E78.5 Hyperlipidemia, unspecified; E66.01 Morbid (severe) obesity due to excess calories; Z68.39 Body mass index [BMI] 39.0-39.9, adult; J45.909 Unspecified asthma, uncomplicated; N40.1 Benign prostatic hyperplasia with lower urinary tract symptoms; N13.8 Other obstructive and reflux uropathy; M10.9 Gout, unspecified; F17.210 Nicotine dependence, cigarettes, uncomplicated; Z95.5 Presence of coronary angioplasty implant and graft; Z95.0 Presence of cardiac pacemaker; Z87.442 Personal history of urinary calculi; Z86.2 Personal history of diseases of the blood and blood-forming organs and certain disorders involving the immune mechanism; Z79.01 Long term (current) use of anticoagulants; Z79.84 Long term (current) use of oral hypoglycemic drugs; Z79.899 Other long term (current) drug therapy
CPT/HCPCS: 99282

== ENCOUNTER 2024-05-03 19:12 | Inpatient (IN) | payer MEDICARE, MEDICAID, SELFPAY ==
[2024-05-03] VITALS (40 sets, daily range): BP systolic 65–117; BP diastolic 46–73; PULSE 76–104; RESP 15–46; TEMP 37.9–40.6; O2SAT 82–97
--- NOTE | ~2024-05-03 | CT_ITS ---
EXAMINATION: CT brain wo con DATE: 05/03/2024 20:48 INDICATION: altered mental status, fall . TECHNIQUE: Computed tomography (CT) of the head was performed without intravenous contrast. The mA wa s adjusted according to patient size. Iterative reconstruction technique was employed. The dose-lengt h product was 1362.00 mGy-cm. COMPARISON: None. FINDINGS: Motion artifact is present which persisted in repeated imaging attempts. No acute intracranial hemorrhage or extra-axial fluid collection. No hydrocephalus, mass, or herniation. Parenchymal low density in the right hemisphere with loss of reyez-white junction. Unremarkable dural venous sinus attenuation. No acute osseous abnormality. Small retention cyst/polyp in the left maxillary sinus, mild frontal and ethmoid mucosal thickening, the remaining aerated spaces are clear. Mild atrophy and chronic white matter change. Atherosclerotic intracranial calcification. IMPRESSION: Acute infarct involving a portion of the right MCA territory. Results reported telephonically to Dr. Duong by Dr. Langford at 9:01 PM on 05/03/2024. Reviewed, dictated and finalized at location K. E MAN IMPRESSION: Acute infarct involving a portion of the right MCA territory. Results reported telephonically to Dr. Duong by Dr. Langford at 9:01 PM on .
--- NOTE | ~2024-05-03 | XR_ITS ---
EXAMINATION: XR chest 1V portable DATE: 05/09/2024 13:12 INDICATION: Shortness of breath. TECHNIQUE: A single frontal view of the chest was obtained. COMPARISON: Chest single view 05/05/2024, CT abdomen and pelvis 05/03/2024 FINDINGS: There is mild atelectasis in right lower lung zone. No pleural effusion or pneumothorax. Th e heart size is normal. There is a left chest pacer with leads in right atrium, right ventricle, and coronary sinus. IMPRESSION: 1. Mild atelectasis in right lower lung zone. Reviewed, dictated and finalized at location A. BING INSTRUCTOR
--- NOTE | ~2024-05-03 | XR_ITS ---
EXAMINATION: XR foot RT 2V DATE: 05/04/2024 07:05 INDICATION: Calcaneal wound. TECHNIQUE: 2 views of right foot were obtained. COMPARISON: Right foot radiographs 10/04/2020 FINDINGS: Bone alignment is normal. 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 There is mild osteoarthritis of some of the interphalangeal joints. There is moderate to severe osteoarthritis of some of the midfoot joints. There is soft tissue gas at the plantar aspect of the heel. IMPRESSION: 1. Soft tissue gas in the plantar aspect of the heel. No evidence of osteomyelitis. Reviewed, dictated and finalized at location A. INTERN IMPRESSION: 1. Soft tissue gas in the plantar aspect of the heel. No evidence of osteomyeli tis.
--- NOTE | ~2024-05-03 | CT_ITS ---
EXAMINATION: CT brain wo con, CTA brain carotid DATE: 05/16/2024 10:12 INDICATION: Left facial droop and dysarthria. TECHNIQUE: 1. Computed tomography (CT) of the head was performed without intravenous contrast. Sagittal and ratna nal reconstructions were performed. The dose-length product was 605.33 mGy-cm. 2. Computed tomographic angiography (CTA) of the head and neck was performed with 100 mL Omnipaque-35 0 intravenous contrast. Multiplanar reconstructions and maximum intensity projection 3D-reconstructio ns of the carotid arteries and of the intracranial arteries were created by the technologist on a [employer] workstation. Automated exposure control and iterative reconstruction technique were employed.Th e dose-length product was 1207.08 mGy-cm. COMPARISON: None. FINDINGS: Carotid arteries: Small amount of nonhemodynamically significant atherosclerotic plaque along the normal caliber aortic arch and the origins of the great vessels arising from the arch. There is 10% stenosis of the right carotid bulb relative to normal distal artery lumen diameter (NASCET criteria). There is 10% stenosis of the left carotid bulb relative to normal distal artery lumen diameter. There is a small amount of nonhemodynamically significant atherosclerotic plaque at the origins of the bilateral vertebral linnea yasmeen which are codominant. Respiratory motion and mild groundglass opacities the visualized portions of the bilateral upper lungs which could represent atelectasis or mild pulmonary edema. There are sma ll bilateral pleural effusions. Mediastinal lipomatosis. Severe cervical and upper thoracic spondylos is. Maxilla is edentulous. There is extensive dental disease along the mandible with multiple large d ental caries and periapical erosion about the posterior most left mandibular molar. Cervical soft tis sues are unremarkable. Head: No abnormal extra-axial fluid collection. Again seen is an evolving subacute infarct in the posterior right frontal lobe with increasing cytotoxic edema and increasing degree of local mass effect with e ffacement of the intervening sulci. The region of infarct also appears slightly larger than on the pr ior study now extending to involve the paramedian posterior right frontal lobe. There is subtle incre ased density along the surface of the gyri centrally within the region of infarct which appear relati vely linear on the sagittal images and within the region of relatively devoid of contrast enhanced ve ssels on the CT angiogram which would favor small thrombosed vessels over subarachnoid hemorrhage. Th ere is a second additional small region of likely evolving subacute infarct in the right parieto-occi pital region which appears without significant interval change but which was not difficult to appreci ate on the prior study due to streak artifact at this level. Unchanged chronic appearing infarct at t he inferior right occipital lobe. Diffuse increased prominence of the sulci consistent with mild age- appropriate diffuse cerebral volume loss. Ventricles are normal and symmetric. No mass/mass effect. T he orbits, paranasal sinuses and mastoid air cells are normal. Intracranial arteries Vertebral arteries are codominant. There is no hemodynamically significant stenosis in the vertebral or basilar arteries. There is extensive atherosclerotic calcifications but without hematoma significa nt stenosis along the bilateral carotid siphons. There are no aneurysms identified. The bilateral A1 and P1 as well as the M1 and M2 segments are all patent. There is subtle luxury perfusion along the p eriphery of the region of infarct in the right frontal lobe but with paucity of enhancing vessels apurva trally within the region of infarct. IMPRESSION: 1. 10% stenosis of the right carotid bulb relative to normal distal artery lumen diameter (NASCET cri teria). 2. 10% stenosis of the left carotid bulb relative to normal distal artery lumen diameter. 3. Interval evolution and increased extent of a moderate-sized subacute infarct in the posterior righ t frontal lobe now extending medially to the falx. There are a few likely tiny thrombosed vessel cent rally within the region of infarcted with surrounding peripheral luxury perfusion on the CT angiogram . 4. No interval change in additional smaller likely subacute infarct in the right parieto-occipital re gion and small chronic infarct in the inferior right occipital lobe. 5. Extensive nonhemodynamically significant calcified atherosclerotic plaque along the bilateral chakraborty tid siphons. No thrombosis, hemodynamically significant stenosis or aneurysm in the more central cere bral arteries including through at least the right M2 segments supplying the region of the right fron elina lobe infarct. Reviewed, dictated and finalized at location A. SAFETY ENGINEER IMPRESSION: 1. 10% stenosis of the right carotid bulb relative to normal distal artery lume n diameter (NASCET criteria). 2. 10% stenosis of the left carotid bulb relative to normal distal artery lumen diameter. 3. Interval evolution and increased extent of a moderate-sized subacute infarct in the posterior right frontal lobe now extending medially to the falx. There are a few likely tiny thrombosed vessel centrally within the region of infarcte d with surrounding peripheral luxury perfusion on the CT angiogram. 4. No interval change in additional smaller likely subacute infarct in the righ t parieto-occipital region and small chronic infarct in the inferior right occi pital lobe. 5. Extensive nonhemodynamically significant calcified atherosclerotic plaque al najma the bilateral carotid siphons. No thrombosis, hemodynamically significant s tenosis or aneurysm in the more central cerebral arteries including through at least the right M2 segments supplying the region of the right frontal lobe infa rct.
--- NOTE | ~2024-05-03 | CT_ITS ---
EXAMINATION: CT abdomen pelvis wo con DATE: 05/03/2024 20:48 INDICATION: abdominal pain diarrhea altered mental status TECHNIQUE: Computed tomography (CT) of the abdomen and pelvis was performed without intravenous contr ast. Automated exposure control and iterative reconstruction technique were employed. The dose-length product was 1571.58 mGy-cm. COMPARISON: 12/18/2018. FINDINGS: Exam limited by beam hardening artifact from arm down positioning. Lower thorax: Dependent atelectasi s and mild septal thickening. Coronary artery calcification. Liver: Multiple hepatic cysts. Biliary/Gallbladder: Gallbladder is normal. No bile duct dilation. Pancreas: No mass or duct dilation. Spleen: Normal. Adrenals:No mass. Kidneys: No suspicious mass, obstructing stone, or hydronephrosis. Nonobstructing left mid and lower pole calcifications. Dystrophic calcification with scar in the left lower pole. Simple right upper po le cyst GI tract: No small or large bowel dilation. Normal appendix. Diverticulosis without diverticulitis. Mesentery/Peritoneum: No ascites, mass, or free air. Retroperitoneum: No mass. Atherosclerotic abdominal aortic and/or arterial calcifications. Pelvis: The urinary bladder is decompressed by Mkceon catheter. Soft Tissues: Small fat-containing uncomplicated bilateral inguinal hernias. Bones: No acute osseous finding. Chronic bilateral L5 pars defects. IMPRESSION: No acute abdominopelvic process detected. Reviewed, dictated and finalized at [facility] K. SFER STATION OPERATOR
--- NOTE | ~2024-05-03 | US_ITS ---
EXAMINATION: US arterial ankle brachial ind DATE: 05/07/2024 18:25 INDICATION: Bilateral diabetic foot ulcers. TECHNIQUE: Segmental pressures and plethysmographic and Doppler waveforms of the brachial and lower e xtremity arteries were obtained. COMPARISON: None. FINDINGS: Right and left brachial artery pressures of 106 mm Hg and 121 mm Hg, respectively, are concordant (no rmal difference <= 30 mmHg). The right ankle-brachial index (OSCAR) is 1.14 (normal >= 0.9-1.0). The right great toe-brachial index (TBI) is 0.36 (normal >= 0.65). Arterial Doppler waveforms are at least biphasic in posterior tibial artery and monophasic in dorsalis pedis. The left OSCAR is 1.16. The left TBI is 0.40. Arterial Doppler waveforms are at least biphasic in poste rior tibial artery and monophasic in dorsalis pedis. IMPRESSION: 1. Decreased TBIs and normal ABIs, consistent with arterial occlusive disease. Note that ABIs may be overestimated if arteries are calcified. Reviewed, dictated and finalized at location A. BOILER
--- NOTE | ~2024-05-03 | US_ITS ---
US renal BI Ordering provider: Willem Moon MD History: . Acute kidney injury rule out hydronephrosis . Comparison: None. Technique: Ultrasound bilateral kidneys. Findings: RIGHT KIDNEY: Measures 13.2x 6x 4.6 cm in length which is normal in size. No renal cysts. No renal ma ss or visualized echogenic stones. Otherwise, normal echotexture and contour. No hydronephrosis. Norm al renal cortical thickness. LEFT KIDNEY: Measures 13.9 x 7.2x 8.3 cm in length which is normal in size. No renal cysts. No renal mass or visualized echogenic stones. Otherwise, normal echotexture and contour. No hydronephrosis. No rmal renal cortical thickness. BLADDER: Mckeon's catheter is seen in the bladder. IMPRESSION: No definite abnormality. Reviewed, dictated and finalized at location A. CAL TECHNOLOGIST MICROBIOLOGY IMPRESSION: No definite abnormality.
--- NOTE | ~2024-05-03 | CT_ITS ---
EXAMINATION: CT cervical spine wo con DATE: 05/03/2024 20:48 INDICATION: trauma TECHNIQUE: Computed tomography (CT) of the cervical spine was performed without intravenous contrast. Automated exposure control and iterative reconstruction technique were employed. The dose-length pro duct was 580.62 mGy-cm. COMPARISON: None. FINDINGS: Mild motion artifact. Vertebral Body Alignment: Intact. Craniocervical and atlantoaxial alignment: Moderate degenerative change. Alignment intact. Osseous structures/fracture: No evidence of a lytic or blastic process in the visualized spine. No e vidence of acute fracture. Chronic appearing loss of vertebral body height at C5 and C6 Cervical soft tissues: The paraspinal soft tissues planes are maintained. Degenerative changes: Multilevel degenerative disc disease, severe at C6-7. Multilevel facet arthropa thy. Severe bilateral neural foraminal narrowing secondary to degenerative changes at C6-7. No severe central canal narrowing. IMPRESSION: No acute fracture or traumatic malalignment in the cervical spine. Reviewed, dictated and finalized at location K. R FABRICATION TECHNICIAN
--- NOTE | ~2024-05-03 | XR_ITS ---
MODIFIED ESOPHAGRAM HISTORY: Swallow evaluation following new stroke TECHNIQUE: Modified barium esophagram was performed on 05/17/2024. I administered fluoroscopy and per formed the exam with speech pathologist. Patient was seated for lateral fluoroscopic imaging for ing estion of thin liquids, pudding, solids and quantified amounts, followed by thin liquids in uncontrol led amounts. This was recorded on tape. A single fluoroscopic spot image was also recorded. The DAP f or this procedure was 2.742 Gycm2. The amount of fluoroscopy time used during this procedure was 3.0 minutes. FINDINGS: Oral stage: There is reduced labial seal/lip tension and reduced lingual movement. Pharyngeal stage: Reduced laryngeal elevation, tongue base retraction and pharyngeal squeeze. There i s laryngeal penetration without aspiration with multiple consistencies. Cervical/esophageal stage: Adequate function. IMPRESSION: Oropharyngeal dysphagia with laryngeal penetration without aspiration with multiple consi stencies. Please correlate with speech pathologist findings and specific feeding recommendations. Reviewed, dictated and finalized at location A. ON RAILS WEB DEVELOPER IMPRESSION: Oropharyngeal dysphagia with laryngeal penetration without aspirati on with multiple consistencies. Please correlate with speech pathologist findi ngs and specific feeding recommendations.
--- NOTE | ~2024-05-03 | US_ITS ---
EXAMINATION: US carotid duplex BI DATE: 05/04/2024 14:12 INDICATION: Acute stroke TECHNIQUE: Grayscale, color Doppler, and pulsed Doppler images of the cervical carotid arteries were obtained. The degree of vessel stenosis is placed in one of the following categories: normal, <50%, 5 0-69%, >=70% but less than near-occlusion, near-occlusion, or total occlusion. Note that percent sten osis relative to normal distal artery lumen diameter is indirectly measured from velocity measurement s as described by Jayy, et al. Radiology 2003; 229:340-346. COMPARISON: None. FINDINGS: RIGHT: The right common carotid artery (CCA) peak systolic velocity (PSV) is 61 cm/s. The right internal car otid artery (ICA) PSV is 66 cm/s. The right ICA end-diastolic velocity (EDV) is 24 cm/s. The right IC A/CCA PSV ratio is 1.1. Grayscale and color Doppler images yield an estimate of <50% diameter reducti on from plaque in the ICA. The external carotid artery (ECA) PSV is 89 cm/s. There is antegrade flow in the right vertebral artery. LEFT: The left CCA PSV is 56 cm/s. The left ICA PSV is 65 cm/s. The left ICA EDV is 33 cm/s. The left ICA/C CA PSV ratio is 1.2. Grayscale and color Doppler images yield an estimate of <50% diameter reduction from plaque in the ICA. The ECA PSV is 70 cm/s. There is antegrade flow in the left vertebral artery. IMPRESSION: 1. <50% stenosis in the right internal carotid artery. 2. <50% stenosis in the left internal carotid artery. Reviewed, dictated and finalized at location A. OSITION FLOOR SETTER
--- NOTE | ~2024-05-03 | XR_ITS ---
EXAMINATION: XR foot LT 2V DATE: 05/04/2024 07:05 INDICATION: Calcaneal wound. TECHNIQUE: 2 views of left foot were obtained. COMPARISON: None. FINDINGS: Bone alignment is normal. No fracture. There is mild osteoarthritis of first metatarsophala ngeal joint and some of the midfoot joints and interphalangeal joints. There is an enthesophyte at po sterior aspect of calcaneal tuberosity. There is an ulcer at the plantar aspect of the heel. IMPRESSION: 1. No evidence of osteomyelitis. Reviewed, dictated and finalized at location A. VIORAL HEALTH WORKER
--- NOTE | ~2024-05-03 | XR_ITS ---
EXAMINATION: XR chest 1V portable Exam Date/Time: 05/03/2024 20:55 MANAGER COLLECTION HISTORY: cough, altered, high fever Comparison: None. RESULT: Lines, tubes, and devices: Left chest pacer with intact leads. Lungs and pleura: Rightward rotation and low lung volumes. Mild diffuse reticular opacities with ind istinct vessels. Cardiomediastinal silhouette: Stable. Other: No acute osseous or upper abdominal finding. IMPRESSION: Mild interstitial pulmonary edema. Reviewed, dictated and finalized at location K. GER COLLECTION
--- NOTE | ~2024-05-03 | XR_ITS ---
EXAMINATION: XR chest 1V portable DATE: 05/05/2024 05:34 INDICATION: Sepsis TECHNIQUE: frontal view of the chest was obtained. COMPARISON: Chest radiograph and CT abdomen and pelvis dated 04/2624 FINDINGS: Unchanged opacity at the left costophrenic angle which on the CT imaging corresponds to a left paraca rdial fat pad. Cardiomegaly with pulmonary vascular congestion but without parish pulmonary edema. No pleural effusion or pneumothorax. Three lead pacemaker seen with leads projecting over the expected l ocations of the right atrial appendage, apex of the right ventricle and overlying the left ventricle likely having traversed the coronary sinus. IMPRESSION: 1. Cardiomegaly and pulmonary vascular congestion without aprish pulmonary edema. Reviewed, dictated and finalized at location A. AND CREDIT MANAGER IMPRESSION: 1. Cardiomegaly and pulmonary vascular congestion without parish pulmonary edema .
--- NOTE | 2024-05-03 19:25 | ECG_ITS ---
Test Date: 2024-05-03 19:27:23 Measurements Intervals [place] Rate: 96 P: 0 CA: 0 QRS: -47 QRSD: 160 T: 17 QT: 380 QTc: 481 Interpretive Statements ELECTRONIC ATRIAL PACEMAKER WITH INHIBITION ELECTRONIC VENTRICULAR PACEMAKER VENTRICULAR PREMATURE COMPLEXES BASELINE ARTIFACT- I, II, III, AVR, AVL, AVF, V1-V6 NO FURTHER INTERPRETATION IS POSSIBLE BORDERLINE ECG No previous ECG available for comparison Electronically Signed On 05-04-2024 06:15:08 [employer] by Peewee Vargas D.O.
--- NOTE | 2024-05-03 19:29 | PC.NURSE ---
Cultures drawn from IV of right AC by Thelma DAVIS
--- NOTE | 2024-05-03 19:36 | ED.GENADULT ---
HPI - General Adult General Chief complaint: Altered Mental Status Stated complaint: fall, confused, L facial droop and weakness Time Seen by Provider: 05/03/24 19:17 History of Present Illness HPI narrative: patient is 63-year-old gentleman who presents emergency department with chief complaint of altered mental status. Patient was brought in by EMS after the patient was found to be moved playing on the floor today they are unsure exactly how long patient has been laying on the floor his last contacted by phone 2 days ago. And last seen approximately 1 week ago the patient is confused and unable to provide history at this point patient is on anticoagulants Related Data Home Medications Medication Instructions Recorded Confirmed atorvastatin 20 mg tablet 20 mg PO DAILY 10/04/20 02/26/24 diltiazem HCl 90 mg tablet 90 mg PO BID 07/17/22 02/26/24 rivaroxaban 20 mg tablet (Xarelto) 20 mg PO DAILY 07/17/22 02/26/24 carbidopa-levodopa PO 03/19/23 02/26/24 Allergies Allergy/AdvReac Type Severity Reaction Status Date / Time No Known Allergies Allergy Verified 02/26/24 08:13 Review of Systems Review of Systems: A 10 system review of systems was completed on the patient and is negative except for what is stated in the HPI. Nursing and ancillary documentation was reviewed. [facility] Past Medical History Medical History (Updated 05/03/24 @ 23:54 by Noe Duong MD) Anxiety Asthma Bilateral cataracts Maturing BPH loc w urin obs/LUTS Cellulitis of right lower extremity Chronic atrial fibrillation Coronary artery disease involving [place] heart without angina pectoris Depression Diabetic foot ulcer Diabetic peripheral neuropathy Dyslipidemia Essential hypertension Folate deficiency Gout Hyperlipidemia Kidney stones Nocturia Parkinsons disease Seasonal allergies Stasis dermatitis Type 2 diabetes mellitus Uncontrolled hypertension Surgical History Surgical History History of bilateral carpal tunnel release History of heart artery stent (~2008) History of permanent cardiac pacemaker placement (~2015) [place] Hx of tonsillectomy S/P cubital tunnel release Family History Family History Mother Family history of blood dyscrasia Grandparent Alcoholism Social History Social History Social History: He is and lives alone. He has 4 children 1 of which in a motor vehicle collision. He used to work for a [employer] company but is now on disability. 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 He smokes about 10 cigarettes a day and has smoked since his early 20s. He denies any significant alcohol use. Primary care physician: Treasure Johns NP Code status: Full code Surrogate decision maker: Aniyah Orr (sister) Smoking packs per day: 0.5 Smoking cigarettes per day: 10.0 Years smoked: 25 Smoking pack-years: 12.50 Smoking status: Former smoker Tobacco type: cigarettes Second hand tobacco smoke exposure: No Alcohol intake: current Alcohol use details: Occasionally Substance use: never Substance use type: does not use Lack of Transportation: No Lack of Food: Never True Current Housing: I Have Housing Concerned About Future Housing: No Difficulty Paying Gas/Electric Bills: YES Difficulty Paying for Meds: No Currently Unemployed: No Education: High School Diploma/GED Difficulty w/ Childcare or Family Care: No Spiritual care concerns: No Exam Narrative: GENERAL: ill-appearing, well-nourished, and in no acute distress. HEAD: Normocephalic, atraumatic. EYES: PERRLA and EOMI. ENT: Nares clear, no rhinorrhea or epistaxis. Mucous membranes moist. NECK: Supple. CHEST: Clear to auscultation. No respiratory distress. HEART: Regular rate and rhythm. No murmur heard. Normal peripheral pulses. ABDOMEN: Soft, nontender, nondistended, normal active bowel sounds. EXTREMITIES: Normal range of motion. No edema. SKIN: Warm, dry, no rash. ulcerations present to bilateral heels NEURO: eyes looking to the right alert confused PSYCH: Normal mood and affect. Course Vital Signs Vital signs: Vital Signs Pulse Rate 104 H 05/03/24 19:17 Respiratory Rate 28 H 05/03/24 19:17 Oxygen Delivery Room Air 05/03/24 19:17 Temperature 38.7 C H 05/03/24 22:46 Pulse Rate 80 05/03/24 22:46 Respiratory Rate 24 H 05/03/24 22:46 Blood Pressure 96/63 L 05/03/24 22:46 Pulse Oximetry 95 05/03/24 22:46 Oxygen Delivery Room Air 05/03/24 19:17 Medical Decision Making MDM Narrative Medical decision making narrative: Differential diagnosis includes intracranial hemorrhage, sepsis, renal failure, Laboratory studies were obtained on the patient showed acute kidney injury with creatinine of 3 patient is found have metabolic acidosis the patient received fluid resuscitation in the emergency department and is starting to improve troponin was elevated CT head showed no evidence of acute hemorrhage lactic acid was initially significantly elevated and subsequently has come down with IV fluids blood cultures were obtained the patient was given some cefepime and vanc the case was discussed with both the hospitalist and the data input clerk the patient be admitted to the ICU Vital Signs Vital Signs: Vital Signs Pulse Rate 104 H 05/03/24 19:17 Respiratory Rate 28 H 05/03/24 19:17 Oxygen Delivery Room Air 05/03/24 19:17 Temperature 38.7 C H 05/03/24 22:46 Pulse Rate 80 05/03/24 22:46 Respiratory Rate 24 H 05/03/24 22:46 Blood Pressure 96/63 L 05/03/24 22:46 Pulse Oximetry 95 05/03/24 22:46 Oxygen Delivery Room Air 05/03/24 19:17 Lab Data 05/03/24 19:45 05/03/24 19:45 Labs: Lab Results 05/03/24 05/03/24 05/03/24 Range/Units 19:45 19:47 21:26 WBC 30.8 H (4.5-10.0) K/mm3 RBC 3.35 L (4.6-6.20) M/mm3 Hgb 10.8 L D (14.0-18.0) g/dL Hct 34.4 L (42.0-52.0) % MCV 102.7 H (80-100) fl MCH 32.2 (26-34) pg MCHC 31.4 L (32-36) g/dl RDW 14.1 (11.5-14.5) % Plt Count 449 H D (150-375) k/mm3 MPV 10.2 (7.4-10.4) fl Immature Gran % (Auto) 1.1 H (0-0.5) % Neut % (Auto) 91.1 H (45.5-73.1) % Lymph % (Auto) 1.9 L (18.3-44.2) % [place] % (Auto) 5.1 (2.6-8.5) % Eos % (Auto) 0.5 (0-4.4) % Baso % (Auto) 0.3 (0.2-1.2) % Lymph # (Auto) 0.59 L (0.9-3.2) K/mm3 [place] # (Auto) 1.6 H (0.1-0.6) K/mm3 Eos # (Auto) 0.2 (0-0.3) K/mm3 Baso # (Auto) 0.1 (0.0-0.1) K/mm3 Abs Immat Gran (auto) 0.34 H (0.00-0.031) K/mm3 Absolute Neuts (auto) 28.1 H (1.3-6.7) K/mm3 Absolute Nucleated RBC 0.020 H (0.0-0.012) K/mm3 Nucleated RBC % 0.1 (0.0-0.2) % PT 20.1 H (11.1-14.7) Seconds INR 1.7 APTT 39.2 H (22.3-36.8) Seconds Sodium 137 (137-145) mmol/L Potassium 5.9 H (3.4-5.0) mmol/L Chloride 107 (98-107) mmol/L Carbon Dioxide 12 L (22-30) mmol/L Anion Gap 18 H (4-12) mmol/L BUN 53 H D (9-20) mg/dL Creatinine 3.40 H (0.7-1.3) mg/dL Estim Creat Clear Calc Not Reportable Estimated GFR 18 L (59 - ) Glucose 258 H (65-110) mg/dL Lactic Acid 5.3 H* (0.7-2.0) mmol/L Calcium 10.2 (8.4-10.2) mg/dL Magnesium 1.7 (1.6-2.3) mg/dL Total Bilirubin 1.3 (0.2-1.3) mg/dL AST 65 H (17-59) U/L ALT 60 H (6-50) U/L Alkaline Phosphatase 224 H (38-126) U/L Total Creatine Kinase 531 H (55-170) U/L Troponin I 0.170 H* (0.000-0.034) ng/mL NT-Pro-B Natriuret Pep 35546 H (19.9-100) pg/mL Total Protein 9.0 H (6.3-8.2) g/dL Albumin 3.6 (3.5-5.1) g/dL Procalcitonin 11.6 ng/mL Urine Color Dark yellow (Yellow) Urine Appearance Cloudy H (Clear) Urine pH 5.0 (5.0-9.0) Ur Specific [place] 1.020 (1.001-1.035) Urine Protein 2+ H (Negative) mg/dL Urine Glucose (UA) Negative (Negative) mg/dL Urine Ketones Trace H (Negative) mg/dL Ur Blood (Man) 1+ H (Negative) Urine Nitrate Negative (Negative) Urine Bilirubin 1+ H (Negative) Urine Urobilinogen 1.0 (<2.0) mg/dL Leukocyte Esterase Rfl Trace H (Negative) MARTY/UL Urine RBC 3-5 H (0-2) /hpf Urine WBC 0-5 (0-3) /hpf Ur Squamous Epith Cells Occasional (Few) /hpf Urine Bacteria None seen /hpf Urine Casts 3-5 Nasal MRSA (PCR) Not detected (NOT DETECTE) Urine Opiates Screen Negative (Negative) Urine Methadone Screen Negative (Negative) Ur Barbiturates Screen Negative (Negative) Ur Phencyclidine Scrn Negative (Negative) Ur Amphetamine Screen Negative (Negative) U Benzodiazepines Scrn Negative (Negative) Urine Cocaine Screen Negative (Negative) U Cannabinoids Screen Negative (Negative) Ethyl Alcohol < 10 (<10) mg/dL Influenza A (RT-PCR) Negative (Negative) Influenza B (RT-PCR) Negative (Negative) RSV (RT-PCR) Negative (Negative) SARS-CoV-2 RNA (RT-PCR) Negative (Negative) 05/03/24 Range/Units 22:29 WBC (4.5-10.0) K/mm3 RBC (4.6-6.20) M/mm3 Hgb (14.0-18.0) g/dL Hct (42.0-52.0) % MCV (80-100) fl MCH (26-34) pg MCHC (32-36) g/dl RDW (11.5-14.5) % Plt Count (150-375) k/mm3 MPV (7.4-10.4) fl Immature Gran % (Auto) (0-0.5) % Neut % (Auto) (45.5-73.1) % Lymph % (Auto) (18.3-44.2) % [place] % (Auto) (2.6-8.5) % Eos % (Auto) (0-4.4) % Baso % (Auto) (0.2-1.2) % Lymph # (Auto) (0.9-3.2) K/mm3 [place] # (Auto) (0.1-0.6) K/mm3 Eos # (Auto) (0-0.3) K/mm3 Baso # (Auto) (0.0-0.1) K/mm3 Abs Immat Gran (auto) (0.00-0.031) K/mm3 Absolute Neuts (auto) (1.3-6.7) K/mm3 Absolute Nucleated RBC (0.0-0.012) K/mm3 Nucleated RBC % (0.0-0.2) % PT (11.1-14.7) Seconds INR APTT (22.3-36.8) Seconds Sodium (137-145) mmol/L Potassium (3.4-5.0) mmol/L Chloride (98-107) mmol/L Carbon Dioxide (22-30) mmol/L Anion Gap (4-12) mmol/L BUN (9-20) mg/dL Creatinine (0.7-1.3) mg/dL Estim Creat Clear Calc Estimated GFR (59 - ) Glucose (65-110) mg/dL Lactic Acid 1.8 (0.7-2.0) mmol/L Calcium (8.4-10.2) mg/dL Magnesium (1.6-2.3) mg/dL Total Bilirubin (0.2-1.3) mg/dL AST (17-59) U/L ALT (6-50) U/L Alkaline Phosphatase (38-126) U/L Total Creatine Kinase (55-170) U/L Troponin I 0.294 H* D (0.000-0.034) ng/mL NT-Pro-B Natriuret Pep (19.9-100) pg/mL Total Protein (6.3-8.2) g/dL Albumin (3.5-5.1) g/dL Procalcitonin ng/mL Urine Color (Yellow) Urine Appearance (Clear) Urine pH (5.0-9.0) Ur Specific [place] (1.001-1.035) Urine Protein (Negative) mg/dL Urine Glucose (UA) (Negative) mg/dL Urine Ketones (Negative) mg/dL Ur Blood (Man) (Negative) Urine Nitrate (Negative) Urine Bilirubin (Negative) Urine Urobilinogen (<2.0) mg/dL Leukocyte Esterase Rfl (Negative) MARTY/UL Urine RBC (0-2) /hpf Urine WBC (0-3) /hpf Ur Squamous Epith Cells (Few) /hpf Urine Bacteria /hpf Urine Casts Nasal MRSA (PCR) (NOT DETECTE) Urine Opiates Screen (Negative) Urine Methadone Screen (Negative) Ur Barbiturates Screen (Negative) Ur Phencyclidine Scrn (Negative) Ur Amphetamine Screen (Negative) U Benzodiazepines Scrn (Negative) Urine Cocaine Screen (Negative) U Cannabinoids Screen (Negative) Ethyl Alcohol (<10) mg/dL Influenza A (RT-PCR) (Negative) Influenza B (RT-PCR) (Negative) RSV (RT-PCR) (Negative) SARS-CoV-2 RNA (RT-PCR) (Negative) ABG Data ABG results: 05/03/24 19:56 Puncture Site Right radial ABG pH 7.313 L ABG pCO2 23.7 L* ABG pO2 71.1 L ABG PO2/FiO2 Ratio 2.54 ABG HCO3 11.7 L ABG O2 Saturation 93.4 L ABG O2 Content 15.2 L ABG Base Excess -12.7 A-a Gradient 100.6 Oxyhemoglobin 93.0 Total Hemoglobin 11.6 L O2 Delivery Device Nasal cannula O2 Liters/Min 2.0 FiO2 28 Critical Care Time Critical Care Time Critical Care Time: Yes Total Critical Care Time: 30 Discharge Plan Discharge Clinical Impression: Altered mental status, Acute kidney injury, Sepsis, Leukocytosis, Acute CVA (cerebrovascular accident) Patient Disposition: Still a Patient Condition: Stable Prescriptions: No Action diltiazem HCl 90 mg tablet 90 mg PO BID Rx Instructions: per senior energy analyst Xarelto 20 mg tablet 20 mg PO DAILY Rx Instructions: must administer with evening meal carbidopa-levodopa PO Hold Instructions: Patient no longer taking albuterol sulfate 90 mcg/actuation HFA aerosol inhaler 1 puff inhalation Q4H PRN (Reason: shortness of breath or wheezing) Qty: 25.5 3RF triamcinolone acetonide 0.1 % cream 1 applic topical BID Qty: 454 11RF Rx Instructions: use 2x/day for 5 out of 7 days, then use Eucerin 2x/day for remaining 2 days of the week. doxycycline hyclate 100 mg tablet 100 mg PO DAILY Qty: 20 0RF prednisone 20 mg tablet See Rx Instructions PO DAILY Qty: 9 0RF Rx Instructions: take 2 tabs by mouth daily x 2 days, then 1 tab by mouth daily x 5 days. benzonatate 200 mg capsule 200 mg PO TID PRN (Reason: cough) Qty: 30 0RF atorvastatin 20 mg Tablet 20 mg PO DAILY Silver-Sept 200 mcg/gram Gel 1 applic topical DAILY Qty: 45 0RF metformin 1,000 mg tablet 1,000 mg PO BID Qty: 180 3RF Rx Instructions: with meals valsartan 320 mg tablet 320 mg PO DAILY Qty: 90 3RF folic acid 1 mg tablet 1 mg PO DAILY Qty: 90 3RF furosemide 40 mg tablet 40 mg PO DAILY Qty: 30 11RF montelukast 10 mg tablet 10 mg PO HS Qty: 30 11RF cetirizine 10 mg tablet 10 mg PO DAILY Qty: 90 3RF ipratropium-albuterol 0.5 mg-3 mg(2.5 mg base)/3 mL solution for nebulization 3 ml inhalation QID PRN (Reason: shortness of breath or wheezing) Qty: 360 3RF potassium chloride 20 mEq tablet,ER particles/crystals 20 meq PO DAILY Qty: 90 3RF carvedilol 25 mg tablet 50 mg PO Q12H Qty: 360 3RF Rx Instructions: must administer with a meal/food tamsulosin 0.4 mg capsule 0.4 mg PO QHS Qty: 90 3RF allopurinol 100 mg tablet 200 mg PO DAILY Qty: 180 1RF Follow-up/Referrals: Treasure Johns NP [Primary Care Provider] - Time of Disposition: 23:51
--- NOTE | 2024-05-03 19:40 | PC.NURSE ---
2nd set of Cultures taken from IV Left AC. Kurin device used
--- NOTE | 2024-05-03 19:50 | PC.NURSE ---
bilateral foot wounds cleansed with soap and water. Wash clothes used to attempt to scrub wound areas. EDP notified and will wait for further orders.
[2024-05-03 19:57] LABS: Basophils Absolute Auto 0.1 K/mm3 (0.0-0.1); Basophils Percent Auto 0.3 % (0.2-1.2); Eosinophils Absolute Auto 0.2 K/mm3 (0-0.3); Eosinophils Percent Auto 0.5 % (0-4.4); Hematocrit 34.4 % (42.0-52.0); Hemoglobin 10.8 g/dL (14.0-18.0); Immature Granulocyte Absolute 0.34 K/mm3 (0.00-0.031); Immature Granulocyte Percent A 1.1 % (0-0.5); Lymphocytes Absolute Auto 0.59 K/mm3 (0.9-3.2); Lymphocytes Percent Auto 1.9 % (18.3-44.2); Mean Corpuscular HGB Conc 31.4 g/dl (32-36); Mean Corpuscular Hemoglobin 32.2 pg (26-34); Mean Corpuscular Volume 102.7 fl (80-100); Mean Platelet Volume 10.2 fl (7.4-10.4); Monocytes Absolute Auto 1.6 K/mm3 (0.1-0.6); Monocytes Percent Auto 5.1 % (2.6-8.5); Neutrophils Absolute Auto 28.1 K/mm3 (1.3-6.7); Neutrophils Percent Auto 91.1 % (45.5-73.1); Nucleated Red Blood Cells Perc 0.1 % (0.0-0.2); Platelet Count Result 449 k/mm3 (150-375); Red Blood Count 3.35 M/mm3 (4.6-6.20); Red Cell Distribution Width 14.1 % (11.5-14.5); White Blood Count 30.8 K/mm3 (4.5-10.0)
[2024-05-03 20:03] LABS: Alveolar/Arterial O2 Gradient 100.6 mmHg; Base Excess ABG -12.7 mEq/l (+/-2.0); Fractional Inspired Oxygen 28 %; HCO3 ABG 11.7 mEq/l (22.0-26.0); Oxygen Content ABG 15.2 %vol (16.0-22.0); Oxygen Saturation ABG 93.4 % (95.0-100.0); PO2 ABG 71.1 mmHg (80.0-100.0); PO2 FiO2 Ratio Arterial Blood 2.54 %; Total Hemoglobin 11.6 g/dL (12.0-18.0); pH ABG 7.313 (7.350-7.450)
[2024-05-03 20:05] LABS: Device NASAL CANNULA; Modified Allen's Test Pass; PCO2 ABG 23.7 mmHg (35.0-45.0); Site Drawn RIGHT RADIAL
[2024-05-03 20:07] LABS: Ethanol < 10 mg/dL (<10); Lactic Acid Reflex 5.3 mmol/L (0.7-2.0)
[2024-05-03 20:09] LABS: INR 1.7; Prothrombin Time 20.1 Seconds (11.1-14.7)
[2024-05-03 20:10] LABS: Partial Thromboplastin Time 39.2 Seconds (22.3-36.8)
[2024-05-03 20:12] LABS: Albumin Level 3.6 g/dL (3.5-5.1); Alkaline Phosphatase 224 U/L (38-126); Anion Gap 18 mmol/L (4-12); Aspartate Amino Transferase 65 U/L (17-59); Bilirubin,Total 1.3 mg/dL (0.2-1.3); Blood Urea Nitrogen 53 mg/dL (9-20); Calcium 10.2 mg/dL (8.4-10.2); Carbon Dioxide 12 mmol/L (22-30); Chloride 107 mmol/L (98-107); Estimated Glomerular Filt Rate 18; Glucose 258 mg/dL (65-110); Potassium 5.9 mmol/L (3.4-5.0); Sodium 137 mmol/L (137-145)
[2024-05-03 20:13] LABS: Alanine Aminotransferase 60 U/L (6-50)
[2024-05-03] MEDS: SODIUM CHLORIDE 0.9% IV 1,000 ML 999 ML IV CONT ×3 (20:14→22:09)
[2024-05-03 20:20] LABS: Add Urine Microscopic? YES; Appearance Urine Cloudy (Clear); Bacteria Urine None Seen /hpf; Bilirubin Urine 1+ (Negative); Blood Urine 1+ (Negative); Color Urine Dark Yellow (Yellow); Glucose Urine UA Negative (Negative); Ketones Urine Trace mg/dL (Negative); Leukocyte Esterase Ur Trace LEU/UL (Negative); Nitrate Urine Negative (Negative); Protein Urine 2+ mg/dL (Negative); Squamous Epithelial Cell Urine Occasional /hpf (Few); WBC Urine 0-5 /hpf (0-3)
[2024-05-03] MEDS: IBUPROFEN IV 800 MG/200 ML 800 MG/200 ML BAG 400 MG IVPB (20:20)
--- NOTE | 2024-05-03 20:28 | PC.NURSE ---
pt to ct via stretcher at this time.
[2024-05-03 20:31] LABS: Amphetamine Screen Urine Negative (Negative); Barbiturate Screen Urine Negative (Negative); Benzodiazepines Screen Urine Negative (Negative); Cannabinoid Screen Urine Negative (Negative); Cocaine Screen Urine Negative (Negative); Methadone Screen Urine Negative (Negative); Opiate Screen Urine Negative (Negative); Phencyclidine Screen Urine Negative (Negative)
[2024-05-03 20:34] LABS: Influenza A QL RT-PCR Negative (Negative); Influenza B QL RT-PCR Negative (Negative); RSV RNA, RT-PCR Negative (Negative); SARS-CoV-2 RNA PCR Negative (Negative)
[2024-05-03 20:39] LABS: Creatine Kinase 531 U/L (55-170); Magnesium 1.7 mg/dL (1.6-2.3)
[2024-05-03 20:57] LABS: NT Pro B Type Natriuretic Pept 22500 pg/mL (19.9-100)
[2024-05-03] MEDS: [UNRECOGNIZED DRUG - OTHER] 1 EACH XX (21:09)
[2024-05-03] MEDS: ACETAMINOPHEN 650 MG SUPPOSITORY RECTAL (21:19)
[2024-05-03] MEDS: CEFEPIME 2 GM/NS 50 ML 2 GM/50 ML BAG IVPB (21:20)
[2024-05-03] MEDS: VANCOMYCIN 2,000 MG/NS 500 ML 2,000 MG/500 ML BAG 250 MG IVPB (21:35)
[2024-05-03 22:07] LABS: Procalcitonin 11.6 ng/mL
[2024-05-03 22:46] LABS: MRSA (PCR) NOT DETECTED (NOT DETECTE)
[2024-05-03 22:52] LABS: Lactic Acid Reflex 1.8 mmol/L (0.7-2.0)
--- NOTE | 2024-05-03 22:53 | P.HP_ITS ---
H&P: HPI History of Present Illness Date/Time: 05/03/24 22:53 Chief Complaint: Found on the floor, confused Narrative: 63-year-old male with past medical history of systolic congestive heart failure gout, Parkinson's, essential hypertension, atrial flutter, cardiac pacemaker, coronary artery disease with cardiac stent, and chronic anticoagulation who presented to the ER from home via EMS after being found down on the floor and confused. Patient's last known well was at least 2 days ago when a female friend had talked to him on the phone. The patient was last noticed have a phone conversation with friends at that time. He had evidently not been seen for 10 days according to the ER report. The patient states that he rolled off the couch. However is not clear about exactly when he may have rolled off the couch. He is alert and orient times 3-4 but has moments of confusion. He denies having any difficulty speaking but the patient's friend stated that his speech was more slurred. He denies any headache or visual changes. When patient originally arrived to the ER it was thought that he may have a little bit of neglect to the left gaze. However this was not appreciated on repeat exam. Patient equal strength of system programmer bilaterally. He reports that he has intermittent diarrhea that is worse when he drinks more fluid. He denies any changes in his bowels from baseline. He has had decreased urine output with dark urine. He denies dysuria. He denied having any known fevers chills but when patient arrived to the ER his temperature was as high as 105. He received a dose of IV ibuprofen and eventually broke his fever did on arrival to the ICU. The patient was noted to be markedly tachypneic with respiratory rate in the mid 30s. And he was intermittently mildly tachycardic. EKG demonstrated paced rhythm. He denies having any chest pain or shortness of breath. He has been having some nausea but denied having any vomiting. He has chronic heel wounds bilaterally and venous stasis dermatitis. He states that he quit using all of the creams on his legs because he was convinced that they made his legs worse. Several hours after arriving to the ICU patient was complaining of severe itching of his lower extremities. His triamcinolone cream was ordered but he refused this. Nursing staff bathe the patient's legs after which his legs felt much better. He denies any known drainage from his feet and states that he cannot feel his wounds very much. However when I ask him if he is having any pain he states that his feet pain him quite a bit. Patient was hypotensive on arrival to the ER and received 30 mL/kilos fluid bolus. Initially after the 3 L bolus he was still mildly hypotensive but this resolved shortly thereafter without further intervention. A stat chest x-ray demonstrated mild interstitial pulmonary edema and CT of the abdomen pelvis demonstrated no acute process with lower thorax demonstrating atelectasis and mild septal thickening. Echocardiogram from 2020 demonstrated EF of 35-40% with mildly enlarged left ventricular chamber and linear ER fax from no pacemaker and or defibrillator leads. Cervical spine CT was negative CT of the brain demonstrated acute infarct involving portion of the right MCA territory. He was started on empiric antibiotic therapy with cefepime and vanc. Review of Systems Review of Systems: 12 systems were reviewed with pertinent positives and negatives per HPI. Except as documented in the HPI, all other systems were reviewed and are negative. However somewhat limited due to the patient's critical illness. [facility] Past Medical History Medical History (Updated 05/04/24 @ 07:16 by Chantell James DO) Anxiety Asthma Bilateral cataracts Maturing BPH loc w urin obs/LUTS Cellulitis of right lower extremity Chronic atrial fibrillation Coronary artery disease involving jackson heart without angina pectoris Depression Diabetic foot ulcer Diabetic peripheral neuropathy Dyslipidemia Essential hypertension Folate deficiency Gout Hyperlipidemia Kidney stones Parkinsons disease Seasonal allergies Stasis dermatitis Type 2 diabetes mellitus Uncontrolled hypertension Surgical History Surgical History History of bilateral carpal tunnel release History of heart artery stent (~2008) History of permanent cardiac pacemaker placement (~2015) [place] Hx of tonsillectomy S/P cubital tunnel release Family History Family History Mother Family history of blood dyscrasia Grandparent Alcoholism Social History Social History (Updated 05/04/24 @ 07:04 by Chantell James DO) Social History: He is and lives alone. He has 4 children 1 of which in a motor vehicle collision. He used to work for a [employer] company but is now on disability. He smokes about 10 cigarettes a day and has smoked since his early 20s. He reports he quit smoking March 2024. He denies any significant alcohol use. Code status: DNR/DNI (per patient request) Surrogate decision maker: Enedelia Villalpando (friend) Smoking packs per day: 0.5 Smoking cigarettes per day: 10.0 Years smoked: 25 Smoking pack-years: 12.50 Smoking status: Former smoker Second hand tobacco smoke exposure: No Alcohol intake: current Alcohol use details: Occasionally Substance use: never Substance use type: does not use Do You Feel Safe in your Home?: Yes Lack of Transportation: No Lack of Food: Never True Current Housing: I Have Housing Concerned About Future Housing: No Difficulty Paying Gas/Electric Bills: YES Difficulty Paying for Meds: No Currently Unemployed: No Education: High School Diploma/GED Difficulty w/ Childcare or Family Care: No Spiritual care concerns: No Meds Home Medications and Allergies Home Medications Medication Instructions Recorded Confirmed Type atorvastatin 20 mg tablet 20 mg PO DAILY 10/04/20 05/04/24 History diltiazem HCl 90 mg tablet 90 mg PO BID 07/17/22 05/04/24 History rivaroxaban 20 mg tablet (Xarelto) 20 mg PO DAILY 07/17/22 05/04/24 History metformin 1,000 mg tablet 1,000 mg PO BID #180 tabs 06/29/23 05/04/24 Rx valsartan 320 mg tablet 320 mg PO DAILY #90 tabs 06/29/23 05/04/24 Rx folic acid 1 mg tablet 1 mg PO DAILY #90 tabs 07/07/23 05/04/24 Rx furosemide 40 mg tablet 40 mg PO DAILY #30 tabs 08/27/23 05/04/24 Rx montelukast 10 mg tablet 10 mg PO HS #30 tabs 08/27/23 05/04/24 Rx cetirizine 10 mg tablet 10 mg PO DAILY #90 tabs 10/26/23 05/04/24 Rx albuterol sulfate 90 mcg/actuation 1 puff inhalation Q4H PRN 12/09/23 05/04/24 Rx aerosol inhaler shortness of breath or wheezing #25.5 grams triamcinolone acetonide 0.1 % 1 applic topical BID #454 grams 12/09/23 05/04/24 Rx topical cream carvedilol 25 mg tablet 50 mg PO Q12H #360 tabs 02/23/24 05/04/24 Rx ipratropium 0.5 mg-albuterol 3 mg 3 ml inhalation QID PRN shortness 02/23/24 05/04/24 Rx (2.5 mg base)/3 mL nebulization of breath or wheezing #360 mL soln potassium chloride 20 mEq 20 meq PO DAILY #90 tabs 02/23/24 05/04/24 Rx tablet,extended release(part/cryst) doxycycline hyclate 100 mg tablet 100 mg PO DAILY #20 tabs 02/26/24 05/04/24 Rx tamsulosin 0.4 mg capsule 0.4 mg PO QHS #90 caps 03/03/24 05/04/24 Rx allopurinol 100 mg tablet 200 mg PO DAILY #180 tabs 04/26/24 05/04/24 Rx Allergies Allergy/AdvReac Type Severity Reaction Status Date / Time No Known Allergies Allergy Verified 02/26/24 08:13 Vital Signs Vital Signs - 24 hr 05/03/24 19:17 05/03/24 19:36 05/03/24 20:20 Temperature 105.0 F H Pulse Rate 104 H 92 Respiratory Rate 28 H Blood Pressure Pulse Oximetry Oxygen Delivery Room Air 05/03/24 19:35 05/03/24 19:36 05/03/24 19:45 Temperature Pulse Rate 99 98 104 H Respiratory Rate 35 H 40 H 35 H Blood Pressure 117/48 L Pulse Oximetry 94 89 L Oxygen Delivery 05/03/24 19:56 05/03/24 20:00 05/03/24 20:23 Temperature 104.3 F H 104.4 F H 105.0 F H Pulse Rate 97 97 93 Respiratory Rate 33 H 46 H 23 H Blood Pressure 65/46 L Pulse Oximetry 96 97 Oxygen Delivery 05/03/24 20:55 05/03/24 20:58 05/03/24 21:00 Temperature 104.7 F H 104.7 F H Pulse Rate 98 84 81 Respiratory Rate 35 H 37 H 40 H Blood Pressure 117/69 Pulse Oximetry 92 94 91 Oxygen Delivery 05/03/24 21:01 05/03/24 21:15 05/03/24 21:16 Temperature 104.6 F H 104.3 F H 104.3 F H Pulse Rate 76 86 94 Respiratory Rate 44 H 24 H 34 H Blood Pressure 111/73 102/71 Pulse Oximetry 93 90 94 Oxygen Delivery 05/03/24 21:30 05/03/24 21:31 05/03/24 21:32 Temperature 103.9 F H 103.9 F H 103.8 F H Pulse Rate 80 84 84 Respiratory Rate 36 H 34 H 26 H Blood Pressure 101/59 L Pulse Oximetry 89 L 97 94 Oxygen Delivery 05/03/24 21:45 05/03/24 21:46 05/03/24 21:58 Temperature 103.4 F H 103.4 F H 103.0 F H Pulse Rate 95 81 83 Respiratory Rate 28 H 34 H 19 Blood Pressure 81/51 L 99/63 L Pulse Oximetry 82 L 83 L 96 Oxygen Delivery 05/03/24 22:00 05/03/24 22:01 05/03/24 22:02 Temperature 103.0 F H 103.0 F H 102.9 F H Pulse Rate 83 79 79 Respiratory Rate 15 28 H 21 H Blood Pressure Pulse Oximetry 96 96 95 Oxygen Delivery 05/03/24 22:06 05/03/24 22:03 05/03/24 22:08 Temperature 102.8 F H 102.9 F H 102.7 F H Pulse Rate 80 81 Respiratory Rate 27 H 24 H Blood Pressure 88/66 L Pulse Oximetry 94 92 Oxygen Delivery 05/03/24 22:10 05/03/24 22:11 05/03/24 22:12 Temperature 102.7 F H 102.7 F H 102.6 F H Pulse Rate 80 80 80 Respiratory Rate 27 H 22 H 22 H Blood Pressure 86/63 L 94/61 L Pulse Oximetry 95 95 95 Oxygen Delivery 05/03/24 22:15 05/03/24 22:16 05/03/24 22:32 Temperature 102.5 F H 102.5 F H 102.0 F H Pulse Rate 80 80 80 Respiratory Rate 33 H 25 H 25 H Blood Pressure 96/61 L Pulse Oximetry 95 95 96 Oxygen Delivery Exam Narrative: Weight 124.6 kg BMI 36.7 Const: Other: Acutely ill-appearing,, appears stated age, disheveled, foul body odor HENMT: Other: Mucous membranes are dry, crowded posterior oropharynx, teeth with extensive dental plaquing and carries, head is normocephalic atraumatic, left facial droop Eyes: Other: Pupils are equal and reactive with bilateral cataracts noted, patient may have some slight decrease did movement but gaze is conjugate Neck: Other: Large neck circumference, no obvious JVD Resp: Other: Tachypnea, accessory muscle use, coarse breath sounds Cardio: Other: Regular rate, irregular rhythm, 2+ bilateral radial and pedal pulses, no appreciable murmur, no JVD GI: Other: Obese, nontender, distended, soft bowel sounds : Other: Mckeon catheter present with dark yellow slightly cloudy urine approximately 150 mL Skin: Other: Venous stasis dermatitis of bilateral lower extremities circumferential, thick black eschar to the entire right calcaneus with tissue underneath soft, no obvious drainage, left he also has overlying eschar but has areas of open skin with clean wound base, again no drainage or surrounding erythema Neuro: Other: Alert oriented x3, patient does not remember how he fell or the exact circumstances regarding him coming to the hospital, he has left facial droop that he does not know when symptoms began, he denies known difficulty swallowing, he denies of localizing weakness, equal system programmer strength bilateral, the movements are slightly delayed to the left Extrem: Other: Chronic venous stasis dermatitis of bilateral lower extremities, 1 to 2+ pitting edema of the feet, palpable pedal pulses, bilateral feet are somewhat erythematous with 3-4 second cap refill, wounds as noted above under skin exam Psych: Other: Cooperative, H&P: Results Labs Labs: Short CBC 05/03/24 Range/Units 19:45 WBC 30.8 H (4.5-10.0) K/mm3 Hgb 10.8 L D (14.0-18.0) g/dL Hct 34.4 L (42.0-52.0) % Plt Count 449 H D (150-375) k/mm3 BMP 05/03/24 19:45 Sodium 137 Potassium 5.9 H Chloride 107 Carbon Dioxide 12 L BUN 53 H D Creatinine 3.40 H Glucose 258 H Calcium 10.2 Cardiac Enzymes 05/03/24 Range/Units 19:45 Total Creatine Kinase 531 H (55-170) U/L Troponin I 0.170 H* (0.000-0.034) ng/mL Liver Function 05/03/24 Range/Units 19:45 Total Bilirubin 1.3 (0.2-1.3) mg/dL AST 65 H (17-59) U/L ALT 60 H (6-50) U/L Alkaline Phosphatase 224 H (38-126) U/L Albumin 3.6 (3.5-5.1) g/dL Urine 05/03/24 Range/Units 19:47 Urine Color Dark yellow (Yellow) Urine Appearance Cloudy H (Clear) Urine pH 5.0 (5.0-9.0) Ur Specific [place] 1.020 (1.001-1.035) Urine Protein 2+ H (Negative) mg/dL Urine Glucose (UA) Negative (Negative) mg/dL 05/03/24 05/03/24 05/03/24 19:45 19:47 19:56 WBC 30.8 H RBC 3.35 L Hgb 10.8 L D Hct 34.4 L MCV 102.7 H MCH 32.2 MCHC 31.4 L RDW 14.1 Plt Count 449 H D MPV 10.2 Immature Gran % (Auto) 1.1 H Neut % (Auto) 91.1 H Lymph % (Auto) 1.9 L [place] % (Auto) 5.1 Eos % (Auto) 0.5 Baso % (Auto) 0.3 Lymph # (Auto) 0.59 L [place] # (Auto) 1.6 H Eos # (Auto) 0.2 Baso # (Auto) 0.1 Abs Immat Gran (auto) 0.34 H Absolute Neuts (auto) 28.1 H Absolute Nucleated RBC 0.020 H Nucleated RBC % 0.1 PT 20.1 H INR 1.7 APTT 39.2 H Puncture Site Right radial ABG pH 7.313 L ABG pCO2 23.7 L* ABG pO2 71.1 L ABG PO2/FiO2 Ratio 2.54 ABG HCO3 11.7 L ABG O2 Saturation 93.4 L ABG O2 Content 15.2 L ABG Base Excess -12.7 A-a Gradient 100.6 Oxyhemoglobin 93.0 Total Hemoglobin 11.6 L O2 Delivery Device Nasal cannula O2 Liters/Min 2.0 FiO2 28 Sodium 137 Potassium 5.9 H Chloride 107 Carbon Dioxide 12 L Anion Gap 18 H BUN 53 H D Creatinine 3.40 H Estim Creat Clear Calc Not Reportable Estimated GFR 18 L Glucose 258 H Lactic Acid 5.3 H* Calcium 10.2 Phosphorus Magnesium 1.7 Total Bilirubin 1.3 AST 65 H ALT 60 H Alkaline Phosphatase 224 H Total Creatine Kinase 531 H Troponin I 0.170 H* NT-Pro-B Natriuret Pep 30927 H Total Protein 9.0 H Albumin 3.6 Procalcitonin 11.6 Urine Color Dark yellow Urine Appearance Cloudy H Urine pH 5.0 Ur Specific [place] 1.020 Urine Protein 2+ H Urine Glucose (UA) Negative Urine Ketones Trace H Ur Blood (Man) 1+ H Urine Nitrate Negative Urine Bilirubin 1+ H Urine Urobilinogen 1.0 Leukocyte Esterase Rfl Trace H Urine RBC 3-5 H Urine WBC 0-5 Ur Squamous Epith Cells Occasional Urine Bacteria None seen Urine Casts 3-5 Nasal MRSA (PCR) Urine Opiates Screen Negative Urine Methadone Screen Negative Ur Barbiturates Screen Negative Ur Phencyclidine Scrn Negative Ur Amphetamine Screen Negative U Benzodiazepines Scrn Negative Urine Cocaine Screen Negative U Cannabinoids Screen Negative Ethyl Alcohol < 10 Influenza A (RT-PCR) Negative Influenza B (RT-PCR) Negative RSV (RT-PCR) Negative SARS-CoV-2 RNA (RT-PCR) Negative 05/03/24 05/03/24 05/04/24 21:26 22:29 04:40 WBC Pending RBC Pending Hgb Pending Hct Pending MCV Pending MCH Pending MCHC Pending RDW Pending Plt Count Pending MPV Pending Immature Gran % (Auto) Pending Neut % (Auto) Pending Lymph % (Auto) Pending [place] % (Auto) Pending Eos % (Auto) Pending Baso % (Auto) Pending Lymph # (Auto) Pending [place] # (Auto) Pending Eos # (Auto) Pending Baso # (Auto) Pending Abs Immat Gran (auto) Pending Absolute Neuts (auto) Pending Absolute Nucleated RBC Pending Nucleated RBC % Pending PT INR APTT Puncture Site ABG pH ABG pCO2 ABG pO2 ABG PO2/FiO2 Ratio ABG HCO3 ABG O2 Saturation ABG O2 Content ABG Base Excess A-a Gradient Oxyhemoglobin Total Hemoglobin O2 Delivery Device O2 Liters/Min FiO2 Sodium Pending Potassium Pending Chloride Pending Carbon Dioxide Pending Anion Gap Pending BUN Pending Creatinine Pending Estim Creat Clear Calc Pending Estimated GFR Pending Glucose Pending Lactic Acid 1.8 Calcium Pending Phosphorus Pending Magnesium Pending Total Bilirubin Pending AST Pending ALT Pending Alkaline Phosphatase Pending Total Creatine Kinase Troponin I 0.294 H* D NT-Pro-B Natriuret Pep Total Protein Pending Albumin Pending Procalcitonin Urine Color Urine Appearance Urine pH Ur Specific [place] Urine Protein Urine Glucose (UA) Urine Ketones Ur Blood (Man) Urine Nitrate Urine Bilirubin Urine Urobilinogen Leukocyte Esterase Rfl Urine RBC Urine WBC Ur Squamous Epith Cells Urine Bacteria Urine Casts Nasal MRSA (PCR) Not detected Urine Opiates Screen Urine Methadone Screen Ur Barbiturates Screen Ur Phencyclidine Scrn Ur Amphetamine Screen U Benzodiazepines Scrn Urine Cocaine Screen U Cannabinoids Screen Ethyl Alcohol Influenza A (RT-PCR) Influenza B (RT-PCR) RSV (RT-PCR) SARS-CoV-2 RNA (RT-PCR) 05/03/24 05/03/24 05/03/24 19:45 19:47 19:56 WBC 30.8 H RBC 3.35 L Hgb 10.8 L D Hct 34.4 L MCV 102.7 H MCH 32.2 MCHC 31.4 L RDW 14.1 Plt Count 449 H D MPV 10.2 Immature Gran % (Auto) 1.1 H Neut % (Auto) 91.1 H Lymph % (Auto) 1.9 L [place] % (Auto) 5.1 Eos % (Auto) 0.5 Baso % (Auto) 0.3 Lymph # (Auto) 0.59 L [place] # (Auto) 1.6 H Eos # (Auto) 0.2 Baso # (Auto) 0.1 Abs Immat Gran (auto) 0.34 H Absolute Neuts (auto) 28.1 H Absolute Nucleated RBC 0.020 H Nucleated RBC % 0.1 PT 20.1 H INR 1.7 APTT 39.2 H Puncture Site Right radial ABG pH 7.313 L ABG pCO2 23.7 L* ABG pO2 71.1 L ABG PO2/FiO2 Ratio 2.54 ABG HCO3 11.7 L ABG O2 Saturation 93.4 L ABG O2 Content 15.2 L ABG Base Excess -12.7 A-a Gradient 100.6 Oxyhemoglobin 93.0 Total Hemoglobin 11.6 L O2 Delivery Device Nasal cannula O2 Liters/Min 2.0 FiO2 28 Sodium 137 Potassium 5.9 H Chloride 107 Carbon Dioxide 12 L Anion Gap 18 H BUN 53 H D Creatinine 3.40 H Estim Creat Clear Calc Not Reportable Estimated GFR 18 L Glucose 258 H Lactic Acid 5.3 H* Calcium 10.2 Phosphorus Magnesium 1.7 Total Bilirubin 1.3 AST 65 H ALT 60 H Alkaline Phosphatase 224 H Total Creatine Kinase 531 H Troponin I 0.170 H* NT-Pro-B Natriuret Pep 53475 H Total Protein 9.0 H Albumin 3.6 Procalcitonin 11.6 Urine Color Dark yellow Urine Appearance Cloudy H Urine pH 5.0 Ur Specific [place] 1.020 Urine Protein 2+ H Urine Glucose (UA) Negative Urine Ketones Trace H Ur Blood (Man) 1+ H Urine Nitrate Negative Urine Bilirubin 1+ H Urine Urobilinogen 1.0 Leukocyte Esterase Rfl Trace H Urine RBC 3-5 H Urine WBC 0-5 Ur Squamous Epith Cells Occasional Urine Bacteria None seen Urine Casts 3-5 Nasal MRSA (PCR) Urine Opiates Screen Negative Urine Methadone Screen Negative Ur Barbiturates Screen Negative Ur Phencyclidine Scrn Negative Ur Amphetamine Screen Negative U Benzodiazepines Scrn Negative Urine Cocaine Screen Negative U Cannabinoids Screen Negative Ethyl Alcohol < 10 Influenza A (RT-PCR) Negative Influenza B (RT-PCR) Negative RSV (RT-PCR) Negative SARS-CoV-2 RNA (RT-PCR) Negative 05/03/24 05/03/24 05/04/24 21:26 22:29 04:40 WBC Pending RBC Pending Hgb Pending Hct Pending MCV Pending MCH Pending MCHC Pending RDW Pending Plt Count Pending MPV Pending Immature Gran % (Auto) Pending Neut % (Auto) Pending Lymph % (Auto) Pending [place] % (Auto) Pending Eos % (Auto) Pending Baso % (Auto) Pending Lymph # (Auto) Pending [place] # (Auto) Pending Eos # (Auto) Pending Baso # (Auto) Pending Abs Immat Gran (auto) Pending Absolute Neuts (auto) Pending Absolute Nucleated RBC Pending Nucleated RBC % Pending PT INR APTT Puncture Site ABG pH ABG pCO2 ABG pO2 ABG PO2/FiO2 Ratio ABG HCO3 ABG O2 Saturation ABG O2 Content ABG Base Excess A-a Gradient Oxyhemoglobin Total Hemoglobin O2 Delivery Device O2 Liters/Min FiO2 Sodium Pending Potassium Pending Chloride Pending Carbon Dioxide Pending Anion Gap Pending BUN Pending Creatinine Pending Estim Creat Clear Calc Pending Estimated GFR Pending Glucose Pending Lactic Acid 1.8 Calcium Pending Phosphorus Pending Magnesium Pending Total Bilirubin Pending AST Pending ALT Pending Alkaline Phosphatase Pending Total Creatine Kinase Troponin I 0.294 H* D NT-Pro-B Natriuret Pep Total Protein Pending Albumin Pending Procalcitonin Urine Color Urine Appearance Urine pH Ur Specific [place] Urine Protein Urine Glucose (UA) Urine Ketones Ur Blood (Man) Urine Nitrate Urine Bilirubin Urine Urobilinogen Leukocyte Esterase Rfl Urine RBC Urine WBC Ur Squamous Epith Cells Urine Bacteria Urine Casts Nasal MRSA (PCR) Not detected Urine Opiates Screen Urine Methadone Screen Ur Barbiturates Screen Ur Phencyclidine Scrn Ur Amphetamine Screen U Benzodiazepines Scrn Urine Cocaine Screen U Cannabinoids Screen Ethyl Alcohol Influenza A (RT-PCR) Influenza B (RT-PCR) RSV (RT-PCR) SARS-CoV-2 RNA (RT-PCR) Impressions Head CT 05/03/24 20:56 IMPRESSION: Acute infarct involving a portion of the right MCA territory. Results reported telephonically to Dr. Duong by Dr. Langford at 9:01 PM on 05/03/2024. Cervical Spine CT 05/03/24 21:01 IMPRESSION: No acute fracture or traumatic malalignment in the cervical spine. Chest X-Ray 05/03/24 21:04 IMPRESSION: Mild interstitial pulmonary edema. Abdomen/Pelvis CT 05/03/24 21:06 IMPRESSION: No acute abdominopelvic process detected. Multiple EKGs performed demonstrated paced rhythm 2nd EKG did demonstrate QT prolongation Assessment and Plan Assessment and plan (1) Septic shock: Code(s): A41.9 - Sepsis, unspecified organism; R65.21 - Severe sepsis with septic shock Status: Acute (2) Acute CVA (cerebrovascular accident): Code(s): I63.9 - Cerebral infarction, unspecified Status: Acute (3) Diabetic foot ulcers: Qualifiers: Diabetic foot ulcer location: heel Diabetes mellitus type: type 2 Laterality: unspecified laterality Non-pressure ulcer stage: unspecified non- pressure ulcer stage Qualified Code(s): E11.621 - Type 2 diabetes mellitus with foot ulcer; L97.409 - Non-pressure chronic ulcer of unspecified heel and midfoot with unspecified severity Code(s): E11.621 - Type 2 diabetes mellitus with foot ulcer; L97.509 - Non-pressure chronic ulcer of other part of unspecified foot with unspecified severity Status: Acute (4) Acute anemia: Code(s): D64.9 - Anemia, unspecified Status: Acute (5) Acute kidney injury: Code(s): N17.9 - Acute kidney failure, unspecified Status: Acute (6) Transaminitis: Code(s): R74.01 - Elevation of levels of liver transaminase levels Status: Acute (7) Rhabdomyolysis: Qualifiers: Rhabdomyolysis type: non-traumatic Qualified Code(s): M62.82 - Rhabdomyolysis Code(s): M62.82 - Rhabdomyolysis Status: Acute (8) Elevated troponin: Code(s): R79.89 - Other specified abnormal findings of blood chemistry Status: Acute Plan Patient met sepsis criteria with trauma due to lactic acid greater than 5, leukocytosis, tachycardia, tachypnea and fever of 105. Patient did improve with IV fluid administration with normalization of lactic acidosis. Blood cultures have been obtained and are pending. Source of infection includes possible pneumonia given x-ray findings in tachypnea versus bacteremia/infected diabetic foot wounds. Cannot rule out underlying osteomyelitis. Patient is not a candidate for contrasted CT to further evaluate his feet and cannot undergo an MRI of his feet due to pacemaker. Will check bilateral foot x-rays and then consider bone scan if further evaluation needed. Wound Care has been consulted. Will continue empiric antibiotic therapy with cefepime and vancomycin. MRSA screen was obtained in the ER was negative. Patient is also reporting diarrhea at home but CT of the abdomen demonstrated no acute process. If patient continues to have diarrhea while hospitalized will send for C diff since stool culture testing. Patient has acute CVA in the right MCA distribution. Patient is not a candidate for CTA of the head and neck due to acute kidney injury. Will obtain carotid Dopplers and echocardiogram in a.m. to further evaluate cardiac structure and function. CVAs likely related to the patient's history of AFib. The patient states his last Xarelto dose was on the . Given the large area of distribution is CVA will defer when or whether to restart Xarelto/place patient on heparin drip to neurology and [employer] services. Patient has acute kidney injury likely due to ATN from hypotension and sepsis. Patient received adequate IV fluid resuscitation but serum bicarb remains low with a respiratory compensation. Will add bicarb drip. Will avoid addition of dextrose due to patient's baseline hyperglycemia. Patient has type 2 diabetes mellitus with hyperglycemia. He is NPO for the acute interval due to clinical condition and acute CVA. Will request speech therapy evaluation. While patient is NPO will check Accu-Cheks q.6 hours will add sliding scale insulin and hypoglycemia protocol as needed. Will check A1c with a.m. labs. Patient has anemia. His last set of labs within our system was in 2020. Is u nclear if this is acute or chronic anemia. Will repeat CBC and monitor. If hemoglobin continues to drop will determine direction of further investigation. 75 minute spent in critical care activities. Due to a high probability of clinically significant, life threatening deterioration, the patient required my highest level of preparedness to intervene emergently and I personally spent this critical care time directly and personally managing the patient. This critical care time included obtaining a history; examining the patient; pulse oximetry; ordering and review of studies; arranging urgent treatment with development of a management plan; evaluation of patient's response to treatment; frequent reassessment; and discussions with other providers. It was exclusive of separately billable procedures and treating other patients and teaching time. Please see Assessment and Plan section and the rest of the note for further information on patient assessment and treatment. Quality VTE Prophylaxis VTE prophylaxis: mechanical ordered (SCDs) Hospitalist MIPS Advance Care Plan I have confirmed that the patient's Advanced Care Plan is present, code status is documented, or surrogate decision maker is listed in patient medical record.: Yes Medication Reconciliation I have utilized all available resources to obtain, update and review the patients current medications (includes all prescriptions, OTC, herbals, cannabis, and nutritional supplements).: Yes
[2024-05-03 22:54] LABS: Reflex Lactic Acid Yes or No Add Lactic
--- NOTE | 2024-05-03 23:05 | PC.NURSE ---
pt has bilateral pulses in both feet. RN marked where pulses were found
[2024-05-03 23:08] LABS: Troponin I 0.294 ng/mL (0.000-0.034)
--- NOTE | 2024-05-03 23:10 | ECG_ITS ---
Test Date: 2024-05-03 23:10:45 Measurements Intervals [place] Rate: 80 P: -68 UT: 212 QRS: -73 QRSD: 190 T: 91 QT: 485 QTc: 560 Interpretive Statements ELECTRONIC ATRIAL PACEMAKER WITH INHIBITION ELECTRONIC VENTRICULAR PACEMAKER BASELINE ARTIFACT- I, V1 NO FURTHER INTERPRETATION IS POSSIBLE ATYPICAL ECG Compared to ECG 05/03/2024 19:27:23 Ventricular premature complex(es) no longer present Electronically Signed On 05-04-2024 06:19:10 STORAGE MANAGEMENT ARCHITECT by Peewee Vargas D.O.
[2024-05-04] VITALS (21 sets, daily range): BP systolic 101–140; BP diastolic 66–118; PULSE 80–81; RESP 10–33; TEMP 35.5–37.9; O2SAT 93–100; BMI 36.7; BMI 37.1
--- NOTE | 2024-05-04 | ECHO_ITS ---
Patient Info Name: Joselito Lmaar Age: 63 years : 1960 Gender: Male Ht: 72 in Wt: 274 lbs BSA: 2.56 m2 HR: 80 bpm BP: 102 / 86 mmHg Heart Rhythm: Paced Technical Quality: Poor Exam Date: 05/04/2024 8:57 AM Exam Location: Echo Lab Patient Status: Outpatient Admit Date: 05/03/2024 Staff Ordering Physician: Chantell James DO Rare/Endangered Species Specialist: Erin Mercado RDCS Attending Provider: Chantell James DO Referring Physician: Erika AZUL; Exam Type: CA echo dop bubble study w con Study Info Indications - CVA Complete two-dimentional, color flow and Doppler transthoracic echocardiogram is performed with agitated saline and with contrast to opacify the left ventricle and to improve the delineation of the left ventricle endocardial borders. Contrast/Agitated Saline Contrast/Ag. Saline: Agitated Saline Amount: 20.00 ml Existing IV Access: Yes Contrast/Ag. Saline: Definity Amount: 2.00 ml Existing IV Access: Yes Reason for Poor Study: poor echocardiographic windows Summary 1. Very technically difficult study with limited views. 2. Left ventricular chamber dimension is normal. 3. Left ventricular systolic function is mildly reduced, estimated at 40-45%. 4. There is moderately increased left ventricular wall thickness. 5. Right ventricular systolic function is normal. 6. Intact interatrial septum visualized by color flow and agitated saline imaging. Negative bubble study. 7. There is mild mitral valve regurgitation. 8. There is mild tricuspid valve regurgitation. Left Ventricle Left ventricular chamber dimension is normal. Left ventricular systolic function is mildly reduced, estimated at 40-45%. There is moderately increased left ventricular wall thickness. Left ventricular septal wall motion is abnormal with septal motion related to pacing. The left ventricular diastolic function is indeterminate. Right Ventricle Linear artifact in right ventricle suggestive of catheter(s), pacemaker lead(s), or ICD lead(s). Right ventricular chamber dimension is normal. Right ventricular systolic function is normal. Left Atria Left atrial chamber dimension is normal. Right Atria Linear artifact in the right atrium suggestive of catheter(s), pacemaker lead(s), or ICD lead(s). Right atrial chamber dimension is normal. Atrial Septum Intact interatrial septum visualized by color flow and agitated saline imaging. Negative bubble study. Aortic Valve The aortic valve is probable trileaflet. There is no aortic valve stenosis. There is no aortic valve regurgitation. Pulmonic Valve The pulmonic valve is not well visualized. Mitral Valve There is mild mitral valve regurgitation. Tricuspid Valve There is mild tricuspid valve regurgitation. Pericardium/Pleural The pericardium appears epicardial fat pad. There is no pericardial effusion. Inferior Vena Cava Dilated inferior vena cava with <50% collapse upon inspiration consistent with elevated right atrial pressure, 15 mmHg. Aorta The aortic root size at the sinus of Valsalva is normal. Left Ventricular Outflow Tract Name Value Normal LVOT 2D LVOT Diameter 2.1 cm LVOT Doppler LVOT Peak Gradient 2 mmHg LVOT Mean Gradient 1 mmHg LVOT VTI 18 cm LVOT VTI/AV VTI Ratio 0.7 LVOT Stroke Volume 63 ml LVOT CO 4.5 l/min LVOT CI 1.7 l/min/m2 Pulmonic Valve Name Value Normal RVOT Doppler RVOT Peak Gradient 1 mmHg PV Doppler PV Peak Gradient 2 mmHg Mitral Valve Name Value Normal MV Doppler MV Peak Gradient 4 mmHg MV Mean Gradient 2 mmHg MV Decel Ross 612 cm/s2 MV PHT 40 ms MV Area (PHT) 5.5 cm2 4.0-5.0 MV Area (Cont Eq VTI) 3.0 cm2 MV Diastolic Function MV E Peak Velocity 84 cm/s MV Decel Time 138 ms Tricuspid Valve Name Value Normal Estimated PAP/RSVP RA Pressure 15 mmHg <=5 Aorta Name Value Normal Ascending Aorta Ao Root Diameter (MM) 4.0 cm Ao Root Diam Index (MM) 1.5 cm/m2 Aortic Valve Name Value Normal AV Doppler AV Peak Velocity 134 cm/s AV Peak Gradient 5 mmHg AV Mean Gradient 4 mmHg AV VTI 26 cm AV Area (Cont Eq VTI) 2.4 cm2 >=3.0 AV Area (Cont Eq Gopal) 139.5 cm2 AV Regurgitation 2D LVOT Area 3.5 cm2 Ventricles Name Value Normal LV Dimensions 2D/MM IVS Diastolic Thickness (2D) 1.5 cm 0.6-1.0 LVID Diastole (2D) 5.2 cm 4.2-5.8 LVIW Diastolic Thickness (2D) 1.8 cm 0.6-1.0 LVID Systole (2D) 4.2 cm 2.5-4.0 LVOT Diameter 2.1 cm LV Mass (2D Cubed) 379.75 g 88.00-224.00 LV Mass Index (2D Cubed) 148 g/m2 49-115 Relative Wall Thickness (2D) 0.68 LV Fractional Shortening/Ejection Fraction 2D/MM LV Fractional Shortening (2D) 22 % 25-43 LV EF (2D Teicholz) 43 % 52-72 Atria Name Value Normal LA Dimensions LA Dimension (MM) 5.2 cm 3.0-4.1 Report Signatures
--- NOTE | 2024-05-04 01:34 | ADMGEN ---
This patient, Joselito Lamar Jr., was admitted to Intensive Care Unit-9. Patient/family oriented to hospital policies and general routines including ID bracelet, bed and alarms, visiting hours, pain management, procedures, bathroom and other care routines, personal items, smoking policy, room service/diet, and visiting hours. Information on how to activate the Rapid Response Team has been discussed. Patient/Family are encouraged to report perceived risks to care and to ask questions if they do not understand what they are told or what they should do.
--- NOTE | 2024-05-04 01:37 | PC.NURSE ---
Admission report to RYAN Marino.
[2024-05-04] MEDS: SODIUM BICARBONATE 8.4% 150 MEQ in WATER, STERILE FOR INJECTION 950 ML 100 MEQ IV CONT ×2 (02:27→13:20)
[2024-05-04 04:50] LABS: Basophils Absolute Auto 0.1 K/mm3 (0.0-0.1); Basophils Percent Auto 0.3 % (0.2-1.2); Eosinophils Absolute Auto 0.1 K/mm3 (0-0.3); Eosinophils Percent Auto 0.4 % (0-4.4); Hematocrit 30.5 % (42.0-52.0); Hemoglobin 9.8 g/dL (14.0-18.0); Immature Granulocyte Absolute 0.23 K/mm3 (0.00-0.031); Immature Granulocyte Percent A 0.8 % (0-0.5); Lymphocytes Absolute Auto 1.18 K/mm3 (0.9-3.2); Lymphocytes Percent Auto 4.3 % (18.3-44.2); Mean Corpuscular HGB Conc 32.1 g/dl (32-36); Mean Corpuscular Hemoglobin 32.8 pg (26-34); Mean Platelet Volume 9.9 fl (7.4-10.4); Monocytes Absolute Auto 1.3 K/mm3 (0.1-0.6); Monocytes Percent Auto 4.8 % (2.6-8.5); Neutrophils Absolute Auto 24.7 K/mm3 (1.3-6.7); Neutrophils Percent Auto 89.4 % (45.5-73.1); Platelet Count Result 354 k/mm3 (150-375); Red Blood Count 2.99 M/mm3 (4.6-6.20); Red Cell Distribution Width 14.1 % (11.5-14.5); White Blood Count 27.6 K/mm3 (4.5-10.0)
[2024-05-04 05:06] LABS: Alanine Aminotransferase 50 U/L (6-50); Alkaline Phosphatase 154 U/L (38-126); Anion Gap 10 mmol/L (4-12); Aspartate Amino Transferase 59 U/L (17-59); Bilirubin,Total 0.9 mg/dL (0.2-1.3); Blood Urea Nitrogen 58 mg/dL (9-20); Carbon Dioxide 14 mmol/L (22-30); Chloride 113 mmol/L (98-107); Estimated CRCL calculation 27 ml/min; Estimated Glomerular Filt Rate 18; Glucose 262 mg/dL (65-110); Phosphorus 5.5 mg/dL (2.5-4.5); Potassium 5.1 mmol/L (3.4-5.0); Sodium 137 mmol/L (137-145)
[2024-05-04 05:26] LABS: Glucose Point of Care 235 mg/dl (65-105)
[2024-05-04] MEDS: INSULIN ASPART (*BKC) 100 UNITS/ML SUB-Q (05:57)
[2024-05-04] MEDS: ALBUMIN HUMAN 25% 25 GM/100 ML 100 ML IVPB ×3 (08:15→20:28)
[2024-05-04] MEDS: PANTOPRAZOLE SODIUM IV 40 MG VIAL IV PUSH (08:15)
[2024-05-04 08:50] LABS: Hemoglobin A1C 8.4 % (<5.7)
--- NOTE | 2024-05-04 09:20 | P.CONIN_ITS ---
Assessment and Plan Assessment and plan (1) Acute CVA (cerebrovascular accident): Code(s): I63.9 - Cerebral infarction, unspecified Status: Acute Assessment and Plan: 05/03: Patient presented with altered mental status, noted to have some facial droop and weakness. - Head CT showed acute infarct involving a portion of the right MCA territory -patient not a candidate for tPA as last well known time is unavailable -patient was found on the floor, with altered mental status, has not been seen by anybody for approximately 10 days any spoke to a friend 2 days prior to coming to the ER. This is according to the records -will start patient on statin, -will start aspirin 24-48 hours after patient presented the ED, will discuss with Neurology -neurology has been consulted -patient has a pacemaker so may not be a candidate for MRI (2) Sepsis: Code(s): A41.9 - Sepsis, unspecified organism Status: Acute Assessment and Plan: Patient presented with altered mental status, fevers of 105? F, elevated lactic acid of 5.3, tachycardia -patient was given 30 mL/kg IV fluid bolus -repeat lactic was 1.8 -mild elevation in troponin is likely related to ischemic demand as patient denies any chest pain, EKG did not show any ST elevations which showed paced rhythm -continue sodium bicarb infusion for now -05/03: Blood cultures have been obtained -continue cefepime and vancomycin (05/03) -will maintain mean arterial pressures greater than 65 mmHg at all times for adequate end organ perfusion (3) Diabetic foot ulcer: Qualifiers: Diabetes mellitus type: type 2 Diabetic foot ulcer location: midfoot Laterality: right Non-pressure ulcer stage: with muscle involvement without evidence of necrosis Qualified Code(s): E11.621 - Type 2 diabetes mellitus with foot ulcer; L97.415 - Non-pressure chronic ulcer of right heel and midfoot with muscle involvement without evidence of necrosis Code(s): E11.621 - Type 2 diabetes mellitus with foot ulcer; L97.509 - Non-pressure chronic ulcer of other part of unspecified foot with unspecified severity Status: Acute Assessment and Plan: Patient has bilateral diabetic foot ulcers -Left foot x-ray showed no evidence of osteomyelitis -Right foot x-ray showed soft tissue gas in the plantar aspect of the heel, no evidence of osteomyelitis -surgery has been consulted due to soft tissue gas (4) Type 2 diabetes mellitus: Code(s): E11.9 - Type 2 diabetes mellitus without complications Status: Acute Assessment and Plan: Continue Accu-Cheks, sliding scale insulin -hemoglobin A1c is 8.4% (5) Acute kidney injury: Code(s): N17.9 - Acute kidney failure, unspecified Status: Acute Assessment and Plan: 05/03: Patient presented with acute kidney injury on admission, creatinine of 3.40. (baseline creatinine is 0.90-1.40 in September 2020) -patient has a history of hypertension, diabetes, is on Lasix, valsartan carvedilol, diltiazem at home. Unknown how long he was hypotensive prior to coming to the hospital, could be related to infection, ATN -patient received 30 mL/kg IV fluid bolus -currently on sodium bicarb infusion at 100 mL/hour -also receiving albumin for volume expansion given that he has a history of heart failure -will obtain urine lytes, urine eosinophils, repeat CK level -CT scan of the abdomen and pelvis did not show any hydronephrosis, will obtain renal ultrasound -nephrology has been has been consulted -monitor urine output, renal function electrolytes -maintain mean arterial pressures greater than 65 at all times (6) Rhabdomyolysis: Qualifiers: Rhabdomyolysis type: non-traumatic Qualified Code(s): M62.82 - Rhabdomyolysis Code(s): M62.82 - Rhabdomyolysis Status: Acute Assessment and Plan: Patient rolled off his couch and was on the floor for unknown amount of time -elevated CK levels -will repeat CK level this morning -continue sodium bicarb infusion (7) Parkinsons disease: Code(s): G20 - Parkinson's disease Status: Acute Assessment and Plan: History of Parkinson's disease (8) Hypertension: Code(s): I10 - Essential (primary) hypertension Status: Acute Assessment and Plan: History of essential hypertension -will hold all antihypertensives as patient has borderline blood pressures (9) Hyperlipidemia: Code(s): E78.5 - Hyperlipidemia, unspecified Status: Acute Assessment and Plan: Restarted atorvastatin since patient has had an acute stroke Plan DVT prophylaxis: SCDs, no chemoprophylaxis due to acute stroke as there could be risk of hemorrhagic transformation Stress ulcer prophylaxis: Protonix Nutrition: NPO for now, speech to evaluate for bedside swallow Code Status: Do not resuscitate Critical Care Time Spent: 53 minutes -discuss with patient and updated with his condition and plan of care. I answered all his questions Due to a high probability of clinically significant, life threatening deterioration, the patient required my highest level of preparedness to intervene emergently and I personally spent this critical care time directly and personally managing the patient. This critical care time included obtaining a history; examining the patient; pulse oximetry; ordering and review of studies; arranging urgent treatment with development of a management plan; evaluation of patient's response to treatment; frequent reassessment; and discussions with other providers. It was exclusive of separately billable procedures and treating other patients and teaching time. Please see Assessment and Plan section and the rest of the note for further information on patient assessment and treatment This dictation may have been done utilizing a voice recognition system. Attempts have been made to correct errors. However, there may be uncorrected grammatical, spelling, and recognitions errors present. Adult Day Care Worker Consult Note Consult date: 05/04/24 Reason for consult: Acute CVA, altered mental status, rhabdomyolysis, diabetic foot ulcer HPI: Joselito Lamar Jr. is a 63 year old male With significant past medical history of asthma, anxiety, cellulitis, BPH, coronary artery disease, depression, diabetic foot ulcers, diabetic neuropathy, hyperlipidemia, essential hypertension, gout, Parkinson's disease, type 2 diabetes presented the ED on 05/03/2024 with complains of full, altered mental status, confused, left facial droop and weakness. He was also found to be hypotensive, was given 30 mL/kg IV fluid bolus. Patient had some slurred speech. Fevers of 105 in the ER which improved with ibuprofen. In the ER he complained of intermittent diarrhea, nausea but no vomiting denies any headaches visual change. Patient had a last conversation with 1 of his friends about 2 days prior to coming to the ED and patient was not evidently seen for around 10 days according the ER report. According the records patient stated that he had rolled off his couch and was on the floor for unknown amount of time. In in the ER patient's WBC count was 30.8, hemoglobin 10.8, platelets 449, sodium 137, potassium 5.9, CO2 12, BUN 53 and creatinine of 3.40. Blood sugars were 258. Lactic acid was 5.3, mildly elevated LFTs. Bilirubin of 1.3, troponin of 0. 170, proBNP was 32213, procalcitonin 11.6. Urine tox screen was negative. Lipid lactic acid was 1.8, repeat troponin was 0.294. Head CT showed acute infarct involving a portion of the right MCA territory Cervical spine CT scan with no acute fracture or traumatic malalignment in the cervical spine Chest x-ray showed mild interstitial pulmonary edema Abdominal/pelvis CT scan: Did not show any acute abdominal pelvic process Left foot x-ray showed no evidence of osteomyelitis Right foot x-ray showed soft tissue gas in the plantar aspect of the heel, no evidence of osteomyelitis Patient was started on bicarb infusion, cefepime and vancomycin and transferred to the ICU for further management Patient seen and examined this morning in the ICU, is awake, alert, able to answer questions appropriately, denies any chest pain, shortness of breath, abdominal pain, nausea vomiting. Complains of itchiness on his upper extremity on the right side. Patient is hemodynamically stable, paced rhythm, afebrile this morning, low urine output. Patient is on sodium bicarb infusion Review of Systems Review of Systems: All systems reviewed & are unremarkable except as noted in HPI and below PMFSH Past Medical History Medical History (Updated 05/04/24 @ 07:16 by Chantell James DO) Anxiety Asthma Bilateral cataracts Maturing BPH loc w urin obs/LUTS Cellulitis of right lower extremity Chronic atrial fibrillation Coronary artery disease involving [place] heart without angina pectoris Depression Diabetic foot ulcer Diabetic peripheral neuropathy Dyslipidemia Essential hypertension Folate deficiency Gout Hyperlipidemia Kidney stones Parkinsons disease Seasonal allergies Stasis dermatitis Type 2 diabetes mellitus Uncontrolled hypertension Surgical History Surgical History History of bilateral carpal tunnel release History of heart artery stent (~2008) History of permanent cardiac pacemaker placement (~2015) [place] Hx of tonsillectomy S/P cubital tunnel release Family History Family History Mother Family history of blood dyscrasia Grandparent Alcoholism Social History Social History (Updated 05/04/24 @ 07:04 by Chantell James DO) Social History: He is and lives alone. He has 4 children 1 of which in a motor vehicle collision. He used to work for a [employer] but is now on disability. He smokes about 10 cigarettes a day and has smoked since his early 20s. He reports he quit smoking March 2024. He denies any significant alcohol use. Code status: DNR/DNI (per patient request) Surrogate decision maker: Enedelia Villalpando (friend) Smoking packs per day: 0.5 Smoking cigarettes per day: 10.0 Years smoked: 25 Smoking pack-years: 12.50 Smoking status: Former smoker Second hand tobacco smoke exposure: No Alcohol intake: current Alcohol use details: Occasionally Substance use: never Substance use type: does not use Do You Feel Safe in your Home?: Yes Lack of Transportation: No Lack of Food: Never True Current Housing: I Have Housing Concerned About Future Housing: No Difficulty Paying Gas/Electric Bills: YES Difficulty Paying for Meds: No Currently Unemployed: No Education: High School Diploma/GED Difficulty w/ Childcare or Family Care: No Spiritual care concerns: No Meds Home Medications and Allergies Home Medications Medication Instructions Recorded Confirmed Type atorvastatin 20 mg tablet 20 mg PO DAILY 10/04/20 05/04/24 History diltiazem HCl 90 mg tablet 90 mg PO BID 07/17/22 05/04/24 History rivaroxaban 20 mg tablet (Xarelto) 20 mg PO DAILY 07/17/22 05/04/24 History metformin 1,000 mg tablet 1,000 mg PO BID #180 tabs 06/29/23 05/04/24 Rx valsartan 320 mg tablet 320 mg PO DAILY #90 tabs 06/29/23 05/04/24 Rx folic acid 1 mg tablet 1 mg PO DAILY #90 tabs 07/07/23 05/04/24 Rx furosemide 40 mg tablet 40 mg PO DAILY #30 tabs 08/27/23 05/04/24 Rx montelukast 10 mg tablet 10 mg PO HS #30 tabs 08/27/23 05/04/24 Rx cetirizine 10 mg tablet 10 mg PO DAILY #90 tabs 10/26/23 05/04/24 Rx albuterol sulfate 90 mcg/actuation 1 puff inhalation Q4H PRN 12/09/23 05/04/24 Rx aerosol inhaler shortness of breath or wheezing #25.5 grams triamcinolone acetonide 0.1 % 1 applic topical BID #454 grams 12/09/23 05/04/24 Rx topical cream carvedilol 25 mg tablet 50 mg PO Q12H #360 tabs 02/23/24 05/04/24 Rx ipratropium 0.5 mg-albuterol 3 mg 3 ml inhalation QID PRN shortness 02/23/24 05/04/24 Rx (2.5 mg base)/3 mL nebulization of breath or wheezing #360 mL soln potassium chloride 20 mEq 20 meq PO DAILY #90 tabs 02/23/24 05/04/24 Rx tablet,extended release(part/cryst) doxycycline hyclate 100 mg tablet 100 mg PO DAILY #20 tabs 02/26/24 05/04/24 Rx tamsulosin 0.4 mg capsule 0.4 mg PO QHS #90 caps 03/03/24 05/04/24 Rx allopurinol 100 mg tablet 200 mg PO DAILY #180 tabs 04/26/24 05/04/24 Rx Allergies Allergy/AdvReac Type Severity Reaction Status Date / Time No Known Allergies Allergy Verified 02/26/24 08:13 Vital Signs Vital Signs - 24 hr 05/03/24 19:17 05/03/24 19:36 05/03/24 20:20 Temperature 105.0 F H Pulse Rate 104 H 92 Respiratory Rate 28 H Blood Pressure Pulse Oximetry Oxygen Delivery Room Air Oxygen Flow Rate 05/03/24 19:35 05/03/24 19:36 05/03/24 19:45 Temperature Pulse Rate 99 98 104 H Respiratory Rate 35 H 40 H 35 H Blood Pressure 117/48 L Pulse Oximetry 94 89 L Oxygen Delivery Oxygen Flow Rate 05/03/24 19:56 05/03/24 20:00 05/03/24 20:23 Temperature 104.3 F H 104.4 F H 105.0 F H Pulse Rate 97 97 93 Respiratory Rate 33 H 46 H 23 H Blood Pressure 65/46 L Pulse Oximetry 96 97 Oxygen Delivery Oxygen Flow Rate 05/03/24 20:55 05/03/24 20:58 05/03/24 21:00 Temperature 104.7 F H 104.7 F H Pulse Rate 98 84 81 Respiratory Rate 35 H 37 H 40 H Blood Pressure 117/69 Pulse Oximetry 92 94 91 Oxygen Delivery Oxygen Flow Rate 05/03/24 21:01 05/03/24 21:15 05/03/24 21:16 Temperature 104.6 F H 104.3 F H 104.3 F H Pulse Rate 76 86 94 Respiratory Rate 44 H 24 H 34 H Blood Pressure 111/73 102/71 Pulse Oximetry 93 90 94 Oxygen Delivery Oxygen Flow Rate 05/03/24 21:30 05/03/24 21:31 05/03/24 21:32 Temperature 103.9 F H 103.9 F H 103.8 F H Pulse Rate 80 84 84 Respiratory Rate 36 H 34 H 26 H Blood Pressure 101/59 L Pulse Oximetry 89 L 97 94 Oxygen Delivery Oxygen Flow Rate 05/03/24 21:45 05/03/24 21:46 05/03/24 21:58 Temperature 103.4 F H 103.4 F H 103.0 F H Pulse Rate 95 81 83 Respiratory Rate 28 H 34 H 19 Blood Pressure 81/51 L 99/63 L Pulse Oximetry 82 L 83 L 96 Oxygen Delivery Oxygen Flow Rate 05/03/24 22:00 05/03/24 22:01 05/03/24 22:02 Temperature 103.0 F H 103.0 F H 102.9 F H Pulse Rate 83 79 79 Respiratory Rate 15 28 H 21 H Blood Pressure Pulse Oximetry 96 96 95 Oxygen Delivery Oxygen Flow Rate 05/03/24 22:06 05/03/24 22:03 05/03/24 22:08 Temperature 102.8 F H 102.9 F H 102.7 F H Pulse Rate 80 81 Respiratory Rate 27 H 24 H Blood Pressure 88/66 L Pulse Oximetry 94 92 Oxygen Delivery Oxygen Flow Rate 05/03/24 22:10 05/03/24 22:11 05/03/24 22:12 Temperature 102.7 F H 102.7 F H 102.6 F H Pulse Rate 80 80 80 Respiratory Rate 27 H 22 H 22 H Blood Pressure 86/63 L 94/61 L Pulse Oximetry 95 95 95 Oxygen Delivery Oxygen Flow Rate 05/03/24 22:15 05/03/24 22:16 05/03/24 22:32 Temperature 102.5 F H 102.5 F H 102.0 F H Pulse Rate 80 80 80 Respiratory Rate 33 H 25 H 25 H Blood Pressure 96/61 L Pulse Oximetry 95 95 96 Oxygen Delivery Oxygen Flow Rate 05/03/24 22:45 05/03/24 22:46 05/04/24 00:50 Temperature 101.7 F H 101.7 F H 100.2 F H Pulse Rate 80 80 80 Respiratory Rate 17 24 H 33 H Blood Pressure 96/63 L 105/69 Pulse Oximetry 97 95 97 Oxygen Delivery Oxygen Flow Rate 05/03/24 22:47 05/03/24 23:18 05/03/24 23:19 Temperature 101.7 F H 101.0 F H 101.0 F H Pulse Rate 86 80 87 Respiratory Rate 17 33 H 22 H Blood Pressure 108/66 Pulse Oximetry 96 97 96 Oxygen Delivery Oxygen Flow Rate 05/03/24 23:39 05/03/24 23:52 05/03/24 23:56 Temperature 100.6 F H 100.3 F H 100.2 F H Pulse Rate 80 80 80 Respiratory Rate 26 H 16 33 H Blood Pressure 105/69 Pulse Oximetry 97 96 97 Oxygen Delivery Oxygen Flow Rate 05/04/24 00:01 05/04/24 00:02 05/04/24 00:28 Temperature 100.0 F H 100.0 F H 99.5 F Pulse Rate 80 80 80 Respiratory Rate 26 H 27 H 10 L Blood Pressure 105/79 Pulse Oximetry 96 96 98 Oxygen Delivery Oxygen Flow Rate 05/04/24 01:34 05/04/24 02:00 05/04/24 02:00 Temperature 98.4 F 98.5 F Pulse Rate 80 80 80 Respiratory Rate 20 24 H Blood Pressure 116/89 116/89 Pulse Oximetry 99 99 Oxygen Delivery Oxygen Flow Rate 05/04/24 01:30 05/04/24 03:55 05/04/24 04:22 Temperature 95.9 F L 96.3 F L Pulse Rate Respiratory Rate Blood Pressure Pulse Oximetry 98 Oxygen Delivery Nasal Cannula Oxygen Flow Rate 2 05/04/24 04:00 05/04/24 04:00 05/04/24 04:00 Temperature 96.3 F L Pulse Rate 80 80 Respiratory Rate 22 H Blood Pressure 114/78 Pulse Oximetry 99 98 Oxygen Delivery Nasal Cannula Oxygen Flow Rate 2 05/04/24 05:00 05/04/24 06:00 05/04/24 06:00 Temperature 97.5 F L 97.0 F L Pulse Rate 80 80 Respiratory Rate 22 H Blood Pressure 102/86 Pulse Oximetry 96 Oxygen Delivery Oxygen Flow Rate Exam Narrative: General: Pleasant gentleman in no acute distress HEENT:? Pupils equal and reactive, sclera is clear, dry oral mucosa Neck:? Supple Respiratory:? Clear to auscultation bilaterally, decreased at bases, adequate air entry, no wheezing Cardiac:? Paced rhythm Abdomen:? Soft, nontender, protuberant, nondistended, normoactive bowel sounds Extremities:? Bilateral lower feet in dressing, 1+ pitting edema, palpable pedal pulses Neuro:? Patient is awake, alert, oriented x3, able to move all extremities, strength 4/5 in bilateral upper extremity and 3/5 in bilateral lower extremity, sensations are diminished in the lower extremities Skin:? Chronic venous stasis changes on bilateral lower extremities, Psych:? Depressed affect Results Labs 05/04/24 04:40 05/04/24 04:40 Labs: Short CBC 05/03/24 05/04/24 Range/Units 19:45 04:40 WBC 30.8 H 27.6 H (4.5-10.0) K/mm3 Hgb 10.8 L D 9.8 L (14.0-18.0) g/dL Hct 34.4 L 30.5 L (42.0-52.0) % Plt Count 449 H D 354 (150-375) k/mm3 BMP 05/03/24 05/04/24 19:45 04:40 Sodium 137 137 Potassium 5.9 H 5.1 H Chloride 107 113 H Carbon Dioxide 12 L 14 L BUN 53 H D 58 H Creatinine 3.40 H 3.50 H Glucose 258 H 262 H Calcium 10.2 9.0 Cardiac Enzymes 05/03/24 05/03/24 Range/Units 19:45 22:29 Total Creatine Kinase 531 H (55-170) U/L Troponin I 0.170 H* 0.294 H* D (0.000-0.034) ng/mL Liver Function 05/03/24 05/04/24 Range/Units 19:45 04:40 Total Bilirubin 1.3 0.9 (0.2-1.3) mg/dL AST 65 H 59 (17-59) U/L ALT 60 H 50 (6-50) U/L Alkaline Phosphatase 224 H 154 H (38-126) U/L Albumin 3.6 3.0 L (3.5-5.1) g/dL Urine 05/03/24 Range/Units 19:47 Urine Color Dark yellow (Yellow) Urine Appearance Cloudy H (Clear) Urine pH 5.0 (5.0-9.0) Ur Specific [place] 1.020 (1.001-1.035) Urine Protein 2+ H (Negative) mg/dL Urine Glucose (UA) Negative (Negative) mg/dL Quality VTE Prophylaxis VTE prophylaxis: mechanical ordered Hospitalist MIPS Advance Care Plan I have confirmed that the patient's Advanced Care Plan is present, code status is documented, or surrogate decision maker is listed in patient medical record.: Yes Medication Reconciliation I have utilized all available resources to obtain, update and review the patients current medications (includes all prescriptions, OTC, herbals, cannabis, and nutritional supplements).: Yes
[2024-05-04] MEDS: PERFLUTREN LIPID MICROSPHERES 1.5 ML VIAL DILUTED TO 10 ML TOTAL VOLUME IV PUSH (09:30)
[2024-05-04 10:19] LABS: Creatine Kinase 735 U/L (55-170)
[2024-05-04 10:29] LABS: Creatinine Urine 311.5 mg/dL
[2024-05-04 10:32] LABS: MRSA (PCR) NOT DETECTED (NOT DETECTE)
[2024-05-04 10:33] LABS: Potassium Urine Random 44.1 meq/L; Sodium Urine Random 14 meq/L
[2024-05-04] MEDS: LACTATED RINGERS 500 ML IV CONT (10:42)
[2024-05-04 10:43] LABS: Eosinophil Urine None Seen % (None Seen); Urine Eos QC 2nd Tech Confirmed
[2024-05-04] MEDS: LINEZOLID 600 MG/300 ML 600 MG/300 ML SOLN 300 MG IVPB ×2 (10:47→20:29)
[2024-05-04 11:23] LABS: Glucose Point of Care 196 mg/dl (65-105)
--- NOTE | 2024-05-04 11:28 | IVDEFINITY ---
Prior to administration of IV Definity the patient was educated on the risks and benefits of the imaging enhancing agent including potential adverse side effects. The patient verbalized understanding. Allergies were verified. No exclusion criteria were identified and at least one of the following inclusion criteria were met: 1) physician request, 2) patient technically difficult to image (per the [place] [employer] guidelines of two or more segments not discernable within the apical view), or 3) questionable left ventricular function. ?
[2024-05-04] MEDS: LORATADINE 10 MG TABLET PO (11:45)
[2024-05-04] MEDS: ATORVASTATIN 40 MG TABLET PO (11:45)
--- NOTE | 2024-05-04 11:45 | P.CONNP_ITS ---
Assessment and Plan Assessment and plan (1) Acute kidney injury: Code(s): N17.9 - Acute kidney failure, unspecified Status: Acute Assessment and Plan: * as noted by admission labs -- creatinine 3.40mg/dl * suspect multifactorial etiology * hypotension/hemodynamic instability on admission * sepsis/infection * rhabdomyolysis * ARB and diuretic use [employer] * element of disease progression (?) * s/p IVF resuscitation along with bicarb fluids * CT scan of the abdomen/pelvis did not show any hydronephrosis * UA with 2+ protein and 1+ blood * CPK mildly elevated * follow-up on urine studies, renal ultrasound and trend CPK * follow trend of repeat labs and UOP (2) Stage 3a chronic kidney disease: Code(s): N18.31 - Chronic kidney disease, stage 3a Status: Chronic Assessment and Plan: * creatinine running ~ 1.3 - 1.4mg/dl (although last labs are from 2020) * presumably secondary to hypertension, diabetes, and vascular disease * cannot discount an element of CKD progression (since last labs available are from 3 years ago....) (3) Sepsis: Code(s): A41.9 - Sepsis, unspecified organism Status: Acute Assessment and Plan: * as noted on presentation with AMS, high fevers, lactic acidosis, and tachycardia * s/p aggressive IVF resuscitation * bicarb IVFs for acidosis * follow culture data * on empiric antibiotics * no need for vasopressor therapy at this time * follow trend of hemodynamics (4) Acute CVA (cerebrovascular accident): Code(s): I63.9 - Cerebral infarction, unspecified Status: Acute Assessment and Plan: * presentation with AMS as well as facial droop + weakness * admission head CT showed acute infarct involving a portion of the right MCA territory * not a candidate for tPA as unclear when he was last at baseline * found on the floor - unclear duration as well * Neurology to see (5) Diabetic foot ulcer: Qualifiers: Diabetes mellitus type: type 2 Diabetic foot ulcer location: midfoot Laterality: right Non-pressure ulcer stage: with muscle involvement without evidence of necrosis Qualified Code(s): E11.621 - Type 2 diabetes mellitus with foot ulcer; L97.415 - Non-pressure chronic ulcer of right heel and midfoot with muscle involvement without evidence of necrosis Code(s): E11.621 - Type 2 diabetes mellitus with foot ulcer; L97.509 - Non-pressure chronic ulcer of other part of unspecified foot with unspecified severity Status: Acute Assessment and Plan: * extensive LE wounds on feet and heels * left foot x-ray showed no evidence of osteomyelitis * right foot x-ray showed soft tissue gas in the plantar aspect of the heel, no evidence of osteomyelitis * Surgery to see for further assessment/intervention * suspect will need debridement (6) Rhabdomyolysis: Qualifiers: Rhabdomyolysis type: non-traumatic Qualified Code(s): M62.82 - Rhabdomyolysis Code(s): M62.82 - Rhabdomyolysis Status: Acute Assessment and Plan: * found down for unknown amount of time * mildly elevated CPK noted on admission * on bicarb fluids for acidosis and this issue * follow trend of CPK (7) Hypertension: Code(s): I10 - Essential (primary) hypertension Status: Acute Assessment and Plan: * known history * BP medications on hold due to sepsis and hypotension on admission (8) Type 2 diabetes mellitus: Code(s): E11.9 - Type 2 diabetes mellitus without complications Status: Acute Assessment and Plan: * follow accu-cheks * glycemic control per tie sawyer/hospitalist I will continue to follow the patient with you while he remains hospitalized and make further recommendations as deemed necessary. Thank you for allowing me to participate in the care of this patient. History of Present Illness Reason for Consult Consult date: 05/04/24 Reason for consult: acute renal failure (on chronic kidney disease) Chief Complaint Chief complaint: Sepsis, Altered mental status, Acute kidney injury History of Present Illness Narrative: The patient is a 63-year-old male with an extensive past medical history as outlined below who presented to [facility] Emergency Room yesterday with complaints of altered mental status and confusion. Apparently, along with his altered mental status and confusion, there was a noticeable left facial droop in association with weakness. He was also noted to have slurred speech as well. Unfortunately, it is unclear how long these symptoms were present prior to his presentation. according to outside records, the patient apparently rolled off his couch and was not on the floor for an undisclosed period of time before his presentation as well. In any case, given these constellation of symptoms, who presented to the emergency room for further assessment. Workup and evaluation emergency room demonstrated the patient be hypotensive and febrile with a temperature of 105?. He was given aggressive IV fluid resuscitation given his hypotension and a combination of Tylenol and ibuprofen with improvement in his fevers. Routine blood test demonstrated an elevated white blood cell count of 30.8, relative anemia of the hemoglobin 10.8, and a chemistry that was significant for a metabolic acidosis with a CO2 of 15, potassium of 5.9, BUN of 53, and a creatinine of 3.40 mg/dL. His lactic acid was elevated at 5.3 with mildly elevated liver function tests as well. His proBNP was elevated 22,500 with elevated procalcitonin 11.6. Urinalysis was negative and repeat lactic acid following IV fluid resuscitation had improved to 1.8. On further questioning, the patient stated that he did have some inter mittent diarrhea and nausea but no vomiting in the last few days. given his altered mentation and facial droop in conjunction with his slurred speech, he a CT scan of the head was done which demonstrated acute infarct involving a portion of the right MCA territory. Further imaging including a cervical C- spine was negative for any acute fractures and his chest x-ray showed mild interstitial pulmonary edema. CT scan of the abdomen pelvis did not demonstrate any acute pathology. It is noted in the ER he had significant lower extremity wounds localized to his feet and heels and subsequent x-rays of his left and right foot not demonstrate evidence of osteomyelitis although there was evidence of soft tissue gas by his right foot x-ray. Given the concerns of overt sepsis, appropriate cultures were obtained and he was the initiated on broad-spectrum antibiotics. A bicarb infusion was also initiated due to his acidosis as well. He was subsequently admitted to the intensive care unit for further evaluation and therapy. Since his admission to the ICU, his mentation/ mental status seems to be doing somewhat better and he has no acute complaints. His hemodynamics have improved significantly but his renal function remains abnormal in association with diminished urine output. Renal consultation was requested due to his acute kidney injury/ acute renal failure on top of his baseline chronic kidney disease. Unfortunately the only labs I have to compare to with regard to his baseline renal function a from 7 years ago which demonstrated creatinine of 1.3 - 1.4 mg/dL. His creatinine on admission was 3.4 mg/dL with subsequent labs this morning showed a creatinine of 3.5 mg/dL. however, more concerning is the fact that his urine output is diminished in the last 24 hours although his electrolytes appear to be stable. He does have significant risk factors for kidney disease including diabetes complicated by diabetic neuropathy and diabetic foot wounds, coronary artery disease, hypertension, hyperlipidemia, nephrolithiasis, significant vascular disease in association with age. It is very possible that his baseline creatinine is actually higher than what it was 3 years ago given these risk factors. Currently, at the time my evaluation, he appears to be in no acute distress. Review of Systems Review of Systems: As per HPI. [facility] Past Medical History Medical History (Updated 05/05/24 @ 16:36 by Lo Tuttle MD) Anxiety Asthma Bilateral cataracts Maturing BPH loc w urin obs/LUTS Cellulitis of right lower extremity Chronic atrial fibrillation Coronary artery disease involving [place] heart without angina pectoris Depression Diabetic foot ulcer Diabetic peripheral neuropathy Dyslipidemia Essential hypertension Folate deficiency Gout Hyperlipidemia Kidney stones Parkinsons disease Right-sided cerebrovascular accident (CVA) Seasonal allergies Stasis dermatitis Type 2 diabetes mellitus Uncontrolled hypertension Surgical History Surgical History History of bilateral carpal tunnel release History of heart artery stent (~2008) History of permanent cardiac pacemaker placement (~2015) [place] Hx of tonsillectomy S/P cubital tunnel release Family History Family History Mother Family history of blood dyscrasia Grandparent Alcoholism Social History Social History Social History: He is and lives alone. He has 4 children 1 of which in a motor vehicle collision. He used to work for a [employer] but is now on disability. He smokes about 10 cigarettes a day and has smoked since his early 20s. He reports he quit smoking March 2024. He denies any significant alcohol use. Code status: DNR/DNI (per patient request) Surrogate decision maker: Enedelia Villalpando (friend) Smoking packs per day: 0.5 Smoking cigarettes per day: 10.0 Years smoked: 25 Smoking pack-years: 12.50 Smoking status: Former smoker Second hand tobacco smoke exposure: No Alcohol intake: current Alcohol use details: Occasionally Substance use: never Substance use type: does not use Do You Feel Safe in your Home?: Yes Lack of Transportation: No Lack of Food: Never True Current Housing: I Have Housing Concerned About Future Housing: No Difficulty Paying Gas/Electric Bills: YES Difficulty Paying for Meds: No Currently Unemployed: No Education: High School Diploma/GED Difficulty w/ Childcare or Family Care: No Spiritual care concerns: No Meds Home Medications and Allergies Home Medications Medication Instructions Recorded Confirmed Type atorvastatin 20 mg tablet 20 mg PO DAILY 10/04/20 05/04/24 History diltiazem HCl 90 mg tablet 90 mg PO BID 07/17/22 05/04/24 History rivaroxaban 20 mg tablet (Xarelto) 20 mg PO DAILY 07/17/22 05/04/24 History metformin 1,000 mg tablet 1,000 mg PO BID #180 tabs 06/29/23 05/04/24 Rx valsartan 320 mg tablet 320 mg PO DAILY #90 tabs 06/29/23 05/04/24 Rx folic acid 1 mg tablet 1 mg PO DAILY #90 tabs 07/07/23 05/04/24 Rx furosemide 40 mg tablet 40 mg PO DAILY #30 tabs 08/27/23 05/04/24 Rx montelukast 10 mg tablet 10 mg PO HS #30 tabs 08/27/23 05/04/24 Rx cetirizine 10 mg tablet 10 mg PO DAILY #90 tabs 10/26/23 05/04/24 Rx albuterol sulfate 90 mcg/actuation 1 puff inhalation Q4H PRN 12/09/23 05/04/24 Rx aerosol inhaler shortness of breath or wheezing #25.5 grams triamcinolone acetonide 0.1 % 1 applic topical BID #454 grams 12/09/23 05/04/24 Rx topical cream carvedilol 25 mg tablet 50 mg PO Q12H #360 tabs 02/23/24 05/04/24 Rx ipratropium 0.5 mg-albuterol 3 mg 3 ml inhalation QID PRN shortness 02/23/24 05/04/24 Rx (2.5 mg base)/3 mL nebulization of breath or wheezing #360 mL soln potassium chloride 20 mEq 20 meq PO DAILY #90 tabs 02/23/24 05/04/24 Rx tablet,extended release(part/cryst) doxycycline hyclate 100 mg tablet 100 mg PO DAILY #20 tabs 02/26/24 05/04/24 Rx tamsulosin 0.4 mg capsule 0.4 mg PO QHS #90 caps 03/03/24 05/04/24 Rx allopurinol 100 mg tablet 200 mg PO DAILY #180 tabs 04/26/24 05/04/24 Rx Allergies Allergy/AdvReac Type Severity Reaction Status Date / Time No Known Allergies Allergy Verified 02/26/24 08:13 Vital Signs Vital Signs Temp Pulse Resp BP Pulse Ox O2 Del Method O2 Flow Rate 05/04/24 11:00 100 Nasal Cannula 1 05/04/24 10:00 96.6 F L 80 25 H 105/73 99 05/04/24 08:00 96.5 F L 80 19 140/118 H 99 05/04/24 10:00 80 05/04/24 08:00 80 05/04/24 08:00 99 Nasal Cannula 2 05/04/24 06:00 80 05/04/24 06:00 97.0 F L 80 22 H 102/86 96 05/04/24 05:00 97.5 F L 05/04/24 04:00 96.3 F L 80 22 H 114/78 98 05/04/24 04:00 80 05/04/24 04:00 99 Nasal Cannula 2 05/04/24 04:22 96.3 F L 05/04/24 03:55 95.9 F L 05/04/24 01:30 98 Nasal Cannula 2 05/04/24 02:00 98.5 F 80 24 H 116/89 99 05/04/24 02:00 80 05/04/24 01:34 98.4 F 80 20 116/89 99 05/04/24 00:28 99.5 F 80 10 L 98 05/04/24 00:02 100.0 F H 80 27 H 96 05/04/24 00:01 100.0 F H 80 26 H 105/79 96 05/03/24 23:56 100.2 F H 80 33 H 105/69 97 05/03/24 23:52 100.3 F H 80 16 96 05/03/24 23:39 100.6 F H 80 26 H 97 05/03/24 23:19 101.0 F H 87 22 H 96 05/03/24 23:18 101.0 F H 80 33 H 108/66 97 05/03/24 22:47 101.7 F H 86 17 96 05/04/24 00:50 100.2 F H 80 33 H 105/69 97 05/03/24 22:46 101.7 F H 80 24 H 96/63 L 95 05/03/24 22:45 101.7 F H 80 17 97 05/03/24 22:32 102.0 F H 80 25 H 96 05/03/24 22:16 102.5 F H 80 25 H 96/61 L 95 05/03/24 22:15 102.5 F H 80 33 H 95 05/03/24 22:12 102.6 F H 80 22 H 95 05/03/24 22:11 102.7 F H 80 22 H 94/61 L 95 05/03/24 22:10 102.7 F H 80 27 H 86/63 L 95 05/03/24 22:08 102.7 F H 81 24 H 88/66 L 92 05/03/24 22:03 102.9 F H 80 27 H 94 05/03/24 22:06 102.8 F H 05/03/24 22:02 102.9 F H 79 21 H 95 05/03/24 22:01 103.0 F H 79 28 H 96 05/03/24 22:00 103.0 F H 83 15 96 05/03/24 21:58 103.0 F H 83 19 99/63 L 96 05/03/24 21:46 103.4 F H 81 34 H 81/51 L 83 L 05/03/24 21:45 103.4 F H 95 28 H 82 L 05/03/24 21:32 103.8 F H 84 26 H 94 05/03/24 21:31 103.9 F H 84 34 H 101/59 L 97 05/03/24 21:30 103.9 F H 80 36 H 89 L 05/03/24 21:16 104.3 F H 94 34 H 102/71 94 05/03/24 21:15 104.3 F H 86 24 H 90 05/03/24 21:01 104.6 F H 76 44 H 111/73 93 05/03/24 21:00 104.7 F H 81 40 H 91 05/03/24 20:58 104.7 F H 84 37 H 117/69 94 05/03/24 20:55 98 35 H 92 05/03/24 20:23 105.0 F H 93 23 H 97 05/03/24 20:00 104.4 F H 97 46 H 96 05/03/24 19:56 104.3 F H 97 33 H 65/46 L 05/03/24 19:45 104 H 35 H 05/03/24 19:36 98 40 H 117/48 L 89 L 05/03/24 19:35 99 35 H 94 05/03/24 20:20 105.0 F H 05/03/24 19:36 92 05/03/24 19:17 104 H 28 H Room Air Exam Narrative: GENERAL APPEARANCE: well developed well nourished male in no acute distress HEENT: normocephalic, atraumatic, normal conjunctiva and sclera, nares patient NECK: no lymphadenopathy, thyromegaly, or JVD MOUTH: somewhat dry lips, teeth, and gums CARDIOVASCULAR: RRR, normal S1 and S2, no rub detected RESPIRATORY: clear to auscultation bilaterally ABDOMEN: soft, nontender, nondistended, positive bowel sounds present EXTREMITIES: no evidence of cyanosis, clubbing, 1+ edema; dressings in place over LEs NEUROLOGICAL: alert and oriented x 3; CN II - XII intact bilaterally; no focal deficits noted Results Lab Results 05/05/24 04:13 05/05/24 04:13 Lab results: Most recent lab results ABG pH 7.313 (7.350-7.450) L 05/03/24 19:56 ABG pCO2 23.7 mmHg (35.0-45.0) L* 05/03/24 19:56 ABG pO2 71.1 mmHg (80.0-100.0) L 05/03/24 19:56 ABG HCO3 11.7 mEq/l (22.0-26.0) L 05/03/24 19:56 ABG O2 Saturation 93.4 % (95.0-100.0) L 05/03/24 19:56 Calcium 9.0 mg/dL (8.4-10.2) 05/04/24 04:40 Phosphorus 5.5 mg/dL (2.5-4.5) H 05/04/24 04:40 Magnesium 2.0 mg/dL (1.6-2.3) 05/04/24 04:40 Urine Creatinine 311.5 mg/dL 05/04/24 10:04
[2024-05-04] MEDS: PIPERACILLIN/TAZ 2.25G/NS 50ML 2.25 GM/50 ML BAG IVPB ×2 (11:46→17:00)
--- NOTE | 2024-05-04 12:59 | PCSTNOTE ---
Please refer to the Bedside Swallow Evaluation in the EMR. Please note, silent aspiration cannot be ruled out at bedside.
--- NOTE | 2024-05-04 13:30 | P.CONGS_ITS ---
Assessment and Plan Assessment and plan (1) Diabetic foot ulcers: Qualifiers: Diabetic foot ulcer location: heel Diabetes mellitus type: type 2 Laterality: unspecified laterality Non-pressure ulcer stage: unspecified non- pressure ulcer stage Qualified Code(s): E11.621 - Type 2 diabetes mellitus with foot ulcer; L97.409 - Non-pressure chronic ulcer of unspecified heel and midfoot with unspecified severity Code(s): E11.621 - Type 2 diabetes mellitus with foot ulcer; L97.509 - Non-pressure chronic ulcer of other part of unspecified foot with unspecified severity Status: Acute Assessment and Plan: This is the reason for our consultation. The patient has been admitted with multiple acute medical problems as listed below, as well as sepsis with a WBC count of 30,000. He has chronic bilateral diabetic heel ulcers, as well as a draining wound on the plantar aspect of his right foot over the 1st MTP joint. X-rays of his feet showed no evidence of osteomyelitis, but there was soft tissue gas on the right foot x-ray. He is on appropriate antibiotics that would cover for a necrotizing soft tissue infection with IV Linezolid and Zosyn. His foot wounds do not appear to be the source of his sepsis, but will eventually need surgical debridement. Will continue to follow along and decide on timing of surgery depending on how he progresses. (2) Sepsis: Code(s): A41.9 - Sepsis, unspecified organism Status: Acute (3) Acute CVA (cerebrovascular accident): Code(s): I63.9 - Cerebral infarction, unspecified Status: Acute (4) Acute kidney injury: Code(s): N17.9 - Acute kidney failure, unspecified Status: Acute (5) Elevated troponin: Code(s): R79.89 - Other specified abnormal findings of blood chemistry Status: Acute (6) Rhabdomyolysis: Qualifiers: Rhabdomyolysis type: non-traumatic Qualified Code(s): M62.82 - Rhabdomyolysis Code(s): M62.82 - Rhabdomyolysis Status: Acute (7) Transaminitis: Code(s): R74.01 - Elevation of levels of liver transaminase levels Status: Acute (8) Acute anemia: Code(s): D64.9 - Anemia, unspecified Status: Acute (9) Parkinsons disease: Code(s): G20 - Parkinson's disease Status: Acute (10) Diabetes mellitus with neuropathy: Code(s): E11.40 - Type 2 diabetes mellitus with diabetic neuropathy, unspecified Status: Acute (11) Current use of correction anticoagulation: Code(s): Z79.01 - shelter (current) use of anticoagulants Status: Acute Assessment and Plan: Reportedly on Xarelto for hx of atrial fibrillation. Unclear when he last took a dose of his Xarelto, but patient thinks it was yesterday. Hold for now. Plan I have discussed the patient's case and plan of care with Dr. Ta. Thank you for allowing us to see the patient in consultation and we will continue to follow along with you. History of Present Illness Consult details Consult date: 05/04/24 Reason for consult: other (Right heel wound with soft tissue gas on x-ray) Requesting physician: Noe Duong MD Narrative: This is a 63-year-old man who has PMH of asthma, anxiety, cellulitis, BPH, coronary artery disease, depression, diabetic foot ulcers, diabetic neuropathy, hyperlipidemia, essential hypertension, gout, Parkinson's disease, type 2 diab etes, who presented to the ED yesterday after being found down at home from a well check. Apparently the patient rolled off his couch and was on the floor for an unknown amount of time. The last time he spoke to anyone was 2 days prior and the last time he was seen was 10 days prior to admission. In in the ER, he was tachycardic, febrile, and tachypneic. Labs showed a WBC count of 30.8, hemoglobin 10.8, platelets 449, sodium 137, potassium 5.9, CO2 12, BUN 53 and creatinine of 3.40. Blood sugars were 258. Lactic acid was 5.3, mildly elevated LFTs. Bilirubin of 1.3, troponin of 0.170, proBNP was 90467, procalcitonin 11.6. Urine tox screen was negative. Lipid lactic acid was 1.8, repeat troponin was 0.294. Head CT showed acute infarct involving a portion of the right MCA territory. Cervical spine CT scan with no acute fracture or traumatic malalignment in the cervical spine. Chest x-ray showed mild interstitial pulmonary edema. Abdominal/pelvis CT scan was without any acute abdominal pelvic process. Left foot x-ray showed no evidence of osteomyelitis. Right foot x-ray showed soft tissue gas in the plantar aspect of the heel, no evidence of osteomyelitis Patient was started on bicarb infusion, cefepime and vancomycin and transferred to the ICU for further management. Patient admits to seeing a Cable Coverer in [place] for these wounds in the past and decided to stop going to him because they were getting better. He has some confusion with the acute stroke and is unable to give many other details. he does report they have been draining for about a month and he has been sitting on his couch most of the day with his feet dangling on the floor due to the drainage. He stopped using any dressings because he felt they were making it worse. 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 Review of Systems Review of Systems: ROS unobtainable: Yes unobtainable due to medical condition (Acute CVA) [facility] Past Medical History Medical History Anxiety Asthma Bilateral cataracts Maturing BPH loc w urin obs/LUTS Cellulitis of right lower extremity Chronic atrial fibrillation Coronary artery disease involving [place] heart without angina pectoris Depression Diabetic foot ulcer Diabetic peripheral neuropathy Dyslipidemia Essential hypertension Folate deficiency Gout Hyperlipidemia Kidney stones Parkinsons disease Seasonal allergies Stasis dermatitis Type 2 diabetes mellitus Uncontrolled hypertension Surgical History Surgical History History of bilateral carpal tunnel release History of heart artery stent (~2008) History of permanent cardiac pacemaker placement (~2015) [place] Hx of tonsillectomy S/P cubital tunnel release Family History Family History Mother Family history of blood dyscrasia Grandparent Alcoholism Social History Social History Social History: He is and lives alone. He has 4 children 1 of which in a motor vehicle collision. He used to work for a [employer] company but is now on disability. He smokes about 10 cigarettes a day and has smoked since his early 20s. He reports he quit smoking March 2024. He denies any significant alcohol use. Code status: DNR/DNI (per patient request) Surrogate decision maker: Enedelia Villalpando (friend) Smoking packs per day: 0.5 Smoking cigarettes per day: 10.0 Years smoked: 25 Smoking pack-years: 12.50 Smoking status: Former smoker Second hand tobacco smoke exposure: No Alcohol intake: current Alcohol use details: Occasionally Substance use: never Substance use type: does not use Do You Feel Safe in your Home?: Yes Lack of Transportation: No Lack of Food: Never True Current Housing: I Have Housing Concerned About Future Housing: No Difficulty Paying Gas/Electric Bills: YES Difficulty Paying for Meds: No Currently Unemployed: No Education: High School Diploma/GED Difficulty w/ Childcare or Family Care: No Spiritual care concerns: No Meds Home Medications and Allergies Home Medications Medication Instructions Recorded Confirmed Type atorvastatin 20 mg tablet 20 mg PO DAILY 10/04/20 05/04/24 History diltiazem HCl 90 mg tablet 90 mg PO BID 07/17/22 05/04/24 History rivaroxaban 20 mg tablet (Xarelto) 20 mg PO DAILY 07/17/22 05/04/24 History metformin 1,000 mg tablet 1,000 mg PO BID #180 tabs 06/29/23 05/04/24 Rx valsartan 320 mg tablet 320 mg PO DAILY #90 tabs 06/29/23 05/04/24 Rx folic acid 1 mg tablet 1 mg PO DAILY #90 tabs 07/07/23 05/04/24 Rx furosemide 40 mg tablet 40 mg PO DAILY #30 tabs 08/27/23 05/04/24 Rx montelukast 10 mg tablet 10 mg PO HS #30 tabs 08/27/23 05/04/24 Rx cetirizine 10 mg tablet 10 mg PO DAILY #90 tabs 10/26/23 05/04/24 Rx albuterol sulfate 90 mcg/actuation 1 puff inhalation Q4H PRN 12/09/23 05/04/24 Rx aerosol inhaler shortness of breath or wheezing #25.5 grams triamcinolone acetonide 0.1 % 1 applic topical BID #454 grams 12/09/23 05/04/24 Rx topical cream carvedilol 25 mg tablet 50 mg PO Q12H #360 tabs 02/23/24 05/04/24 Rx ipratropium 0.5 mg-albuterol 3 mg 3 ml inhalation QID PRN shortness 02/23/24 05/04/24 Rx (2.5 mg base)/3 mL nebulization of breath or wheezing #360 mL soln potassium chloride 20 mEq 20 meq PO DAILY #90 tabs 02/23/24 05/04/24 Rx tablet,extended release(part/cryst) doxycycline hyclate 100 mg tablet 100 mg PO DAILY #20 tabs 02/26/24 05/04/24 Rx tamsulosin 0.4 mg capsule 0.4 mg PO QHS #90 caps 03/03/24 05/04/24 Rx allopurinol 100 mg tablet 200 mg PO DAILY #180 tabs 04/26/24 05/04/24 Rx Allergies Allergy/AdvReac Type Severity Reaction Status Date / Time No Known Allergies Allergy Verified 02/26/24 08:13 Vital Signs Vital Signs - 24 hr 05/03/24 19:17 05/03/24 19:36 05/03/24 20:20 Temperature 105.0 F H Pulse Rate 104 H 92 Respiratory Rate 28 H Blood Pressure Pulse Oximetry Oxygen Delivery Room Air Oxygen Flow Rate 05/03/24 19:35 05/03/24 19:36 05/03/24 19:45 Temperature Pulse Rate 99 98 104 H Respiratory Rate 35 H 40 H 35 H Blood Pressure 117/48 L Pulse Oximetry 94 89 L Oxygen Delivery Oxygen Flow Rate 05/03/24 19:56 05/03/24 20:00 05/03/24 20:23 Temperature 104.3 F H 104.4 F H 105.0 F H Pulse Rate 97 97 93 Respiratory Rate 33 H 46 H 23 H Blood Pressure 65/46 L Pulse Oximetry 96 97 Oxygen Delivery Oxygen Flow Rate 05/03/24 20:55 05/03/24 20:58 05/03/24 21:00 Temperature 104.7 F H 104.7 F H Pulse Rate 98 84 81 Respiratory Rate 35 H 37 H 40 H Blood Pressure 117/69 Pulse Oximetry 92 94 91 Oxygen Delivery Oxygen Flow Rate 05/03/24 21:01 05/03/24 21:15 05/03/24 21:16 Temperature 104.6 F H 104.3 F H 104.3 F H Pulse Rate 76 86 94 Respiratory Rate 44 H 24 H 34 H Blood Pressure 111/73 102/71 Pulse Oximetry 93 90 94 Oxygen Delivery Oxygen Flow Rate 05/03/24 21:30 05/03/24 21:31 05/03/24 21:32 Temperature 103.9 F H 103.9 F H 103.8 F H Pulse Rate 80 84 84 Respiratory Rate 36 H 34 H 26 H Blood Pressure 101/59 L Pulse Oximetry 89 L 97 94 Oxygen Delivery Oxygen Flow Rate 05/03/24 21:45 05/03/24 21:46 05/03/24 21:58 Temperature 103.4 F H 103.4 F H 103.0 F H Pulse Rate 95 81 83 Respiratory Rate 28 H 34 H 19 Blood Pressure 81/51 L 99/63 L Pulse Oximetry 82 L 83 L 96 Oxygen Delivery Oxygen Flow Rate 05/03/24 22:00 05/03/24 22:01 05/03/24 22:02 Temperature 103.0 F H 103.0 F H 102.9 F H Pulse Rate 83 79 79 Respiratory Rate 15 28 H 21 H Blood Pressure Pulse Oximetry 96 96 95 Oxygen Delivery Oxygen Flow Rate 05/03/24 22:06 05/03/24 22:03 05/03/24 22:08 Temperature 102.8 F H 102.9 F H 102.7 F H Pulse Rate 80 81 Respiratory Rate 27 H 24 H Blood Pressure 88/66 L Pulse Oximetry 94 92 Oxygen Delivery Oxygen Flow Rate 05/03/24 22:10 05/03/24 22:11 05/03/24 22:12 Temperature 102.7 F H 102.7 F H 102.6 F H Pulse Rate 80 80 80 Respiratory Rate 27 H 22 H 22 H Blood Pressure 86/63 L 94/61 L Pulse Oximetry 95 95 95 Oxygen Delivery Oxygen Flow Rate 05/03/24 22:15 05/03/24 22:16 05/03/24 22:32 Temperature 102.5 F H 102.5 F H 102.0 F H Pulse Rate 80 80 80 Respiratory Rate 33 H 25 H 25 H Blood Pressure 96/61 L Pulse Oximetry 95 95 96 Oxygen Delivery Oxygen Flow Rate 05/03/24 22:45 05/03/24 22:46 05/04/24 00:50 Temperature 101.7 F H 101.7 F H 100.2 F H Pulse Rate 80 80 80 Respiratory Rate 17 24 H 33 H Blood Pressure 96/63 L 105/69 Pulse Oximetry 97 95 97 Oxygen Delivery Oxygen Flow Rate 05/03/24 22:47 05/03/24 23:18 05/03/24 23:19 Temperature 101.7 F H 101.0 F H 101.0 F H Pulse Rate 86 80 87 Respiratory Rate 17 33 H 22 H Blood Pressure 108/66 Pulse Oximetry 96 97 96 Oxygen Delivery Oxygen Flow Rate 05/03/24 23:39 05/03/24 23:52 05/03/24 23:56 Temperature 100.6 F H 100.3 F H 100.2 F H Pulse Rate 80 80 80 Respiratory Rate 26 H 16 33 H Blood Pressure 105/69 Pulse Oximetry 97 96 97 Oxygen Delivery Oxygen Flow Rate 05/04/24 00:01 05/04/24 00:02 05/04/24 00:28 Temperature 100.0 F H 100.0 F H 99.5 F Pulse Rate 80 80 80 Respiratory Rate 26 H 27 H 10 L Blood Pressure 105/79 Pulse Oximetry 96 96 98 Oxygen Delivery Oxygen Flow Rate 05/04/24 01:34 05/04/24 02:00 05/04/24 02:00 Temperature 98.4 F 98.5 F Pulse Rate 80 80 80 Respiratory Rate 20 24 H Blood Pressure 116/89 116/89 Pulse Oximetry 99 99 Oxygen Delivery Oxygen Flow Rate 05/04/24 01:30 05/04/24 03:55 05/04/24 04:22 Temperature 95.9 F L 96.3 F L Pulse Rate Respiratory Rate Blood Pressure Pulse Oximetry 98 Oxygen Delivery Nasal Cannula Oxygen Flow Rate 2 05/04/24 04:00 05/04/24 04:00 05/04/24 04:00 Temperature 96.3 F L Pulse Rate 80 80 Respiratory Rate 22 H Blood Pressure 114/78 Pulse Oximetry 99 98 Oxygen Delivery Nasal Cannula Oxygen Flow Rate 2 05/04/24 05:00 05/04/24 06:00 05/04/24 06:00 Temperature 97.5 F L 97.0 F L Pulse Rate 80 80 Respiratory Rate 22 H Blood Pressure 102/86 Pulse Oximetry 96 Oxygen Delivery Oxygen Flow Rate 05/04/24 08:00 05/04/24 08:00 05/04/24 10:00 Temperature Pulse Rate 80 80 Respiratory Rate Blood Pressure Pulse Oximetry 99 Oxygen Delivery Nasal Cannula Oxygen Flow Rate 2 05/04/24 08:00 05/04/24 10:00 05/04/24 12:00 Temperature 96.5 F L 96.6 F L Pulse Rate 80 80 Respiratory Rate 19 25 H Blood Pressure 140/118 H 105/73 Pulse Oximetry 99 99 100 Oxygen Delivery Nasal Cannula Oxygen Flow Rate 1 05/04/24 12:00 05/04/24 12:00 Temperature 96.2 F L Pulse Rate 81 80 Respiratory Rate 25 H Blood Pressure 108/73 Pulse Oximetry 99 Oxygen Delivery Oxygen Flow Rate Exam Const: General: comfortable and no acute distress Nutritional Appearance: o bese Orientation/consciousness: patient oriented x3 HENMT: Head: normocephalic and atraumatic Ears: hearing grossly normal bilaterally Mouth: Yes moist mucous membranes Eyes: General: appearance normal, both eyes and all related structures Pupils: Equal, round and reactive pupils present Neck: Neck: normal visual inspection and full ROM Resp: Effort & Inspection: no respiratory distress Auscultation: clear to auscultation bilaterally Cardio: Rate: regular rate Rhythm: regular rhythm Other: Paced rhythm on the quality assurance monitor chassis GI: Inspection: non-distended, Pannus present and obesity GI Palp: Yes Soft to palpation, No Tenderness to palpation present (GI), No Guarding due to palpation present (GI), Yes No hepatosplenomegaly present and No Rebound tenderness present Percussion: Yes normal to percussion Auscultation: normal bowel sounds Skin: General skin exam: normal color Neuro: General: confusion and other (mildly decreased strength on the left) Speech: normal speech Extrem: Other: Bilateral lower legs with evidence of chronic venous stasis. Left heel ulcer measuring 6 x 7 x 0.3 cm, which is dry with no obvious drainage. 80% of the wound is covered by a firm, black eschar that is from the edges of the wound and appears chronic. The edges of the wound have some firm yellow slough. Right heel ulcer measuring 9.5 x 8 cm with dry black gangrene covering 100% of the wound, at the edges of the wound is some blistering with purulence drainage coming around the eschar and an extremely foul odor. The right foot has some diffuse erythema around the heel and extending to the dorsal foot. There is also a 4 x 3.5 cm skin abnormality on the plantar aspect of the foot over the first MTP joint that appears consistent with a large wart and a central open wound that is draining foul-smelling purulence drainage and is fluctuant. The patient has significant peripheral neuropathy with no sensation in bilateral feet with my exam. He is able to move his toes in flex and extend his ankle. He has normal to slightly decreased capillary refill. His feet are warm. No cyanosis. Bilateral pedal pulses are palpable, but very weak. I am also able to palpate the left posterior tibial pulse, which is again week, but unable to definitively palpate the right posterior tibial pulse which may be due to the edema of the foot. His right foot has 2 to 3+ edema in comparison to his left. Psych: Attitude: cooperative Insight: Limited insight present (Psych) Judgement: Limited judgement present (Psych) Results Labs 05/04/24 04:40 05/04/24 04:40 Labs: Abnormal lab results 05/03/24 05/03/24 05/03/24 Range/Units 19:45 19:47 19:56 WBC 30.8 H (4.5-10.0) K/mm3 RBC 3.35 L (4.6-6.20) M/mm3 Hgb 10.8 L D (14.0-18.0) g/dL Hct 34.4 L (42.0-52.0) % MCV 102.7 H (80-100) fl MCHC 31.4 L (32-36) g/dl Plt Count 449 H D (150-375) k/mm3 Immature Gran % (Auto) 1.1 H (0-0.5) % Neut % (Auto) 91.1 H (45.5-73.1) % Lymph % (Auto) 1.9 L (18.3-44.2) % Lymph # (Auto) 0.59 L (0.9-3.2) K/mm3 [place] # (Auto) 1.6 H (0.1-0.6) K/mm3 Abs Immat Gran (auto) 0.34 H (0.00-0.031) K/mm3 Absolute Neuts (auto) 28.1 H (1.3-6.7) K/mm3 Absolute Nucleated RBC 0.020 H (0.0-0.012) K/mm3 PT 20.1 H (11.1-14.7) Seconds APTT 39.2 H (22.3-36.8) Seconds ABG pH 7.313 L (7.350-7.450) ABG pCO2 23.7 L* (35.0-45.0) mmHg ABG pO2 71.1 L (80.0-100.0) mmHg ABG HCO3 11.7 L (22.0-26.0) mEq/l ABG O2 Saturation 93.4 L (95.0-100.0) % ABG O2 Content 15.2 L (16.0-22.0) %vol Total Hemoglobin 11.6 L (12.0-18.0) g/dL Potassium 5.9 H (3.4-5.0) mmol/L Chloride (98-107) mmol/L Carbon Dioxide 12 L (22-30) mmol/L Anion Gap 18 H (4-12) mmol/L BUN 53 H D (9-20) mg/dL Creatinine 3.40 H (0.7-1.3) mg/dL Estimated GFR 18 L (59 - ) Glucose 258 H (65-110) mg/dL POC Capillary Glucose (65-105) mg/dl Hemoglobin A1c (<5.7) % Lactic Acid 5.3 H* (0.7-2.0) mmol/L Phosphorus (2.5-4.5) mg/dL AST 65 H (17-59) U/L ALT 60 H (6-50) U/L Alkaline Phosphatase 224 H (38-126) U/L Total Creatine Kinase 531 H (55-170) U/L Troponin I 0.170 H* (0.000-0.034) ng/mL NT-Pro-B Natriuret Pep 09547 H (19.9-100) pg/mL Total Protein 9.0 H (6.3-8.2) g/dL Albumin (3.5-5.1) g/dL Urine Appearance Cloudy H (Clear) Urine Protein 2+ H (Negative) mg/dL Urine Ketones Trace H (Negative) mg/dL Ur Blood (Man) 1+ H (Negative) Urine Bilirubin 1+ H (Negative) Leukocyte Esterase Rfl Trace H (Negative) MARTY/UL Urine RBC 3-5 H (0-2) /hpf 05/03/24 05/04/24 05/04/24 Range/Units 22:29 04:36 04:40 WBC 27.6 H (4.5-10.0) K/mm3 RBC 2.99 L (4.6-6.20) M/mm3 Hgb 9.8 L (14.0-18.0) g/dL Hct 30.5 L (42.0-52.0) % MCV 102.0 H (80-100) fl MCHC (32-36) g/dl Plt Count (150-375) k/mm3 Immature Gran % (Auto) 0.8 H (0-0.5) % Neut % (Auto) 89.4 H (45.5-73.1) % Lymph % (Auto) 4.3 L (18.3-44.2) % Lymph # (Auto) (0.9-3.2) K/mm3 [place] # (Auto) 1.3 H (0.1-0.6) K/mm3 Abs Immat Gran (auto) 0.23 H (0.00-0.031) K/mm3 Absolute Neuts (auto) 24.7 H (1.3-6.7) K/mm3 Absolute Nucleated RBC (0.0-0.012) K/mm3 PT (11.1-14.7) Seconds APTT (22.3-36.8) Seconds ABG pH (7.350-7.450) ABG pCO2 (35.0-45.0) mmHg ABG pO2 (80.0-100.0) mmHg ABG HCO3 (22.0-26.0) mEq/l ABG O2 Saturation (95.0-100.0) % ABG O2 Content (16.0-22.0) %vol Total Hemoglobin (12.0-18.0) g/dL Potassium 5.1 H (3.4-5.0) mmol/L Chloride 113 H (98-107) mmol/L Carbon Dioxide 14 L (22-30) mmol/L Anion Gap (4-12) mmol/L BUN 58 H (9-20) mg/dL Creatinine 3.50 H (0.7-1.3) mg/dL Estimated GFR 18 L (59 - ) Glucose 262 H (65-110) mg/dL POC Capillary Glucose (65-105) mg/dl Hemoglobin A1c 8.4 H (<5.7) % Lactic Acid (0.7-2.0) mmol/L Phosphorus 5.5 H (2.5-4.5) mg/dL AST (17-59) U/L ALT (6-50) U/L Alkaline Phosphatase 154 H (38-126) U/L Total Creatine Kinase 735 H (55-170) U/L Troponin I 0.294 H* D (0.000-0.034) ng/mL NT-Pro-B Natriuret Pep (19.9-100) pg/mL Total Protein (6.3-8.2) g/dL Albumin 3.0 L (3.5-5.1) g/dL Urine Appearance (Clear) Urine Protein (Negative) mg/dL Urine Ketones (Negative) mg/dL Ur Blood (Man) (Negative) Urine Bilirubin (Negative) Leukocyte Esterase Rfl (Negative) MARTY/UL Urine RBC (0-2) /hpf 05/04/24 05/04/24 Range/Units 05:22 11:19 WBC (4.5-10.0) K/mm3 RBC (4.6-6.20) M/mm3 Hgb (14.0-18.0) g/dL Hct (42.0-52.0) % MCV (80-100) fl MCHC (32-36) g/dl Plt Count (150-375) k/mm3 Immature Gran % (Auto) (0-0.5) % Neut % (Auto) (45.5-73.1) % Lymph % (Auto) (18.3-44.2) % Lymph # (Auto) (0.9-3.2) K/mm3 [place] # (Auto) (0.1-0.6) K/mm3 Abs Immat Gran (auto) (0.00-0.031) K/mm3 Absolute Neuts (auto) (1.3-6.7) K/mm3 Absolute Nucleated RBC (0.0-0.012) K/mm3 PT (11.1-14.7) Seconds APTT (22.3-36.8) Seconds ABG pH (7.350-7.450) ABG pCO2 (35.0-45.0) mmHg ABG pO2 (80.0-100.0) mmHg ABG HCO3 (22.0-26.0) mEq/l ABG O2 Saturation (95.0-100.0) % ABG O2 Content (16.0-22.0) %vol Total Hemoglobin (12.0-18.0) g/dL Potassium (3.4-5.0) mmol/L Chloride (98-107) mmol/L Carbon Dioxide (22-30) mmol/L Anion Gap (4-12) mmol/L BUN (9-20) mg/dL Creatinine (0.7-1.3) mg/dL Estimated GFR (59 - ) Glucose (65-110) mg/dL POC Capillary Glucose 235 H 196 H (65-105) mg/dl Hemoglobin A1c (<5.7) % Lactic Acid (0.7-2.0) mmol/L Phosphorus (2.5-4.5) mg/dL AST (17-59) U/L ALT (6-50) U/L Alkaline Phosphatase (38-126) U/L Total Creatine Kinase (55-170) U/L Troponin I (0.000-0.034) ng/mL NT-Pro-B Natriuret Pep (19.9-100) pg/mL Total Protein (6.3-8.2) g/dL Albumin (3.5-5.1) g/dL Urine Appearance (Clear) Urine Protein (Negative) mg/dL Urine Ketones (Negative) mg/dL Ur Blood (Man) (Negative) Urine Bilirubin (Negative) Leukocyte Esterase Rfl (Negative) MARTY/UL Urine RBC (0-2) /hpf Diabetes panel 05/03/24 05/04/24 05/04/24 Range/Units 19:45 04:36 04:40 Sodium 137 137 (137-145) mmol/L Potassium 5.9 H 5.1 H (3.4-5.0) mmol/L Chloride 107 113 H (98-107) mmol/L Carbon Dioxide 12 L 14 L (22-30) mmol/L BUN 53 H D 58 H (9-20) mg/dL Creatinine 3.40 H 3.50 H (0.7-1.3) mg/dL Glucose 258 H 262 H (65-110) mg/dL Hemoglobin A1c 8.4 H (<5.7) % Calcium 10.2 9.0 (8.4-10.2) mg/dL AST 65 H 59 (17-59) U/L ALT 60 H 50 (6-50) U/L Alkaline Phosphatase 224 H 154 H (38-126) U/L Total Protein 9.0 H 7.0 (6.3-8.2) g/dL Albumin 3.6 3.0 L (3.5-5.1) g/dL Calcium panel 05/03/24 05/04/24 Range/Units 19:45 04:40 Calcium 10.2 9.0 (8.4-10.2) mg/dL Phosphorus 5.5 H (2.5-4.5) mg/dL Albumin 3.6 3.0 L (3.5-5.1) g/dL Pituitary panel 05/03/24 05/04/24 Range/Units 19:45 04:40 Sodium 137 137 (137-145) mmol/L Potassium 5.9 H 5.1 H (3.4-5.0) mmol/L Chloride 107 113 H (98-107) mmol/L Carbon Dioxide 12 L 14 L (22-30) mmol/L BUN 53 H D 58 H (9-20) mg/dL Creatinine 3.40 H 3.50 H (0.7-1.3) mg/dL Glucose 258 H 262 H (65-110) mg/dL Calcium 10.2 9.0 (8.4-10.2) mg/dL Adrenal panel 05/03/24 05/04/24 Range/Units 19:45 04:40 Sodium 137 137 (137-145) mmol/L Potassium 5.9 H 5.1 H (3.4-5.0) mmol/L Chloride 107 113 H (98-107) mmol/L Carbon Dioxide 12 L 14 L (22-30) mmol/L BUN 53 H D 58 H (9-20) mg/dL Creatinine 3.40 H 3.50 H (0.7-1.3) mg/dL Glucose 258 H 262 H (65-110) mg/dL Calcium 10.2 9.0 (8.4-10.2) mg/dL Total Bilirubin 1.3 0.9 (0.2-1.3) mg/dL AST 65 H 59 (17-59) U/L ALT 60 H 50 (6-50) U/L Alkaline Phosphatase 224 H 154 H (38-126) U/L Total Protein 9.0 H 7.0 (6.3-8.2) g/dL Albumin 3.6 3.0 L (3.5-5.1) g/dL All other labs normal. Imaging Additional studies: ITS Impressions Head CT 05/03/24 20:56 IMPRESSION: Acute infarct involving a portion of the right MCA territory. Results reported telephonically to Dr. Duong by Dr. Langford at 9:01 PM on 05/03/2024. Cervical Spine CT 05/03/24 21:01 IMPRESSION: No acute fracture or traumatic malalignment in the cervical spine. Chest X-Ray 05/03/24 21:04 IMPRESSION: Mild interstitial pulmonary edema. Abdomen/Pelvis CT 05/03/24 21:06 IMPRESSION: No acute abdominopelvic process detected. Foot X-Ray 05/04/24 07:07 IMPRESSION: 1. No evidence of osteomyelitis. Foot X-Ray 05/04/24 07:08 IMPRESSION: 1. Soft tissue gas in the plantar aspect of the heel. No evidence of osteomyelitis. Carotid Doppler Study 05/04/24 14:15 IMPRESSION: 1. <50% stenosis in the right internal carotid artery. 2. <50% stenosis in the left internal carotid artery. Renal Ultrasound 05/04/24 14:16 IMPRESSION: No definite abnormality.
--- NOTE | 2024-05-04 14:48 | WPDNEURCNPN ---
Assessment and Plan Assessment and plan (1) Altered mental status: Code(s): R41.82 - Altered mental status, unspecified Status: Acute (2) Acute CVA (cerebrovascular accident): Code(s): I63.9 - Cerebral infarction, unspecified Status: Acute Plan acute stroke in the distribution of right middle cerebral artery in addition to ongoing multiple medical problems as mentioned for Consult date: 05/04/24 HPI: Joselito Lamar Jr. is a 63 year old male Admitted to the hospital through the emergency room for the chief complaint of change in the mental status he was brought to the ER by EMS after he was found on the floor and with a history of last telephone contact about 2 days ago. Patient is on anticoagulation therapy in addition to atorvastatin 20mg daily diltiazem 90mg twice a day rivaroxaban 20mg daily carbidopa levodopa daily. Documented to be allergic to any medication does have ongoing history of multiple medical problem as outlined particular to mention is 1. Diabetes mellitus 2. Parkinson's disease 3. Diabetic peripheral neuropathy with diabetic foot ulcer 4. Chronic anticoagulation therapy for the chronic atrial fibrillation 5. 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 Smoking about 10 cigarettes a day and history of years smoked 25 7. Occasional alcohol use. Initial exam in the emergency room him being ill appeared with respiration 28 pulse rate 104 blood pressure 96/63 CBC with platelet count 449 hemoglobin 10.8 BMP B BUN 53 creatinine 3.4 and potassium 5.9 with glucose negative, negative CT scan of the cervical spine for fracture or trauma and CT scan of the head acute infarct involving a portion of the right middle cerebral artery, echocardiogram with no significant involvement though difficult study has been admitted to ICU for acute stroke with sepsis and all other comorbid conditions Review of Systems Review of Systems: All systems reviewed & are unremarkable except as noted in HPI and below PMFSH Past Medical History Medical History Anxiety Asthma Bilateral cataracts Maturing BPH loc w urin obs/LUTS Cellulitis of right lower extremity Chronic atrial fibrillation Coronary artery disease involving [place] heart without angina pectoris Depression Diabetic foot ulcer Diabetic peripheral neuropathy Dyslipidemia Essential hypertension Folate deficiency Gout Hyperlipidemia Kidney stones Parkinsons disease Seasonal allergies Stasis dermatitis Type 2 diabetes mellitus Uncontrolled hypertension Surgical History Surgical History History of bilateral carpal tunnel release History of heart artery stent (~2008) History of permanent cardiac pacemaker placement (~2015) [place] Hx of tonsillectomy S/P cubital tunnel release Family History Family History Mother Family history of blood dyscrasia Grandparent Alcoholism Social History Social History Social History: He is and lives alone. He has 4 children 1 of which in a motor vehicle collision. He used to work for a [employer] but is now on disability. He smokes about 10 cigarettes a day and has smoked since his early 20s. He reports he quit smoking March 2024. He denies any significant alcohol use. Code status: DNR/DNI (per patient request) Surrogate decision maker: Enedelia Villalpando (friend) Smoking packs per day: 0.5 Smoking cigarettes per day: 10.0 Years smoked: 25 Smoking pack-years: 12.50 Smoking status: Former smoker Second hand tobacco smoke exposure: No Alcohol intake: current Alcohol use details: Occasionally Substance use: never Substance use type: does not use Do You Feel Safe in your Home?: Yes Lack of Transportation: No Lack of Food: Never True Current Housing: I Have Housing Concerned About Future Housing: No Difficulty Paying Gas/Electric Bills: YES Difficulty Paying for Meds: No Currently Unemployed: No Education: High School Diploma/GED Difficulty w/ Childcare or Family Care: No Spiritual care concerns: No Meds Home Medications and Allergies Home Medications Medication Instructions Recorded Confirmed Type atorvastatin 20 mg tablet 20 mg PO DAILY 10/04/20 05/04/24 History diltiazem HCl 90 mg tablet 90 mg PO BID 07/17/22 05/04/24 History rivaroxaban 20 mg tablet (Xarelto) 20 mg PO DAILY 07/17/22 05/04/24 History metformin 1,000 mg tablet 1,000 mg PO BID #180 tabs 06/29/23 05/04/24 Rx valsartan 320 mg tablet 320 mg PO DAILY #90 tabs 06/29/23 05/04/24 Rx folic acid 1 mg tablet 1 mg PO DAILY #90 tabs 07/07/23 05/04/24 Rx furosemide 40 mg tablet 40 mg PO DAILY #30 tabs 08/27/23 05/04/24 Rx montelukast 10 mg tablet 10 mg PO HS #30 tabs 08/27/23 05/04/24 Rx cetirizine 10 mg tablet 10 mg PO DAILY #90 tabs 10/26/23 05/04/24 Rx albuterol sulfate 90 mcg/actuation 1 puff inhalation Q4H PRN 12/09/23 05/04/24 Rx aerosol inhaler shortness of breath or wheezing #25.5 grams triamcinolone acetonide 0.1 % 1 applic topical BID #454 grams 12/09/23 05/04/24 Rx topical cream carvedilol 25 mg tablet 50 mg PO Q12H #360 tabs 02/23/24 05/04/24 Rx ipratropium 0.5 mg-albuterol 3 mg 3 ml inhalation QID PRN shortness 02/23/24 05/04/24 Rx (2.5 mg base)/3 mL nebulization of breath or wheezing #360 mL soln potassium chloride 20 mEq 20 meq PO DAILY #90 tabs 02/23/24 05/04/24 Rx tablet,extended release(part/cryst) doxycycline hyclate 100 mg tablet 100 mg PO DAILY #20 tabs 02/26/24 05/04/24 Rx tamsulosin 0.4 mg capsule 0.4 mg PO QHS #90 caps 03/03/24 05/04/24 Rx allopurinol 100 mg tablet 200 mg PO DAILY #180 tabs 04/26/24 05/04/24 Rx Allergies Allergy/AdvReac Type Severity Reaction Status Date / Time No Known Allergies Allergy Verified 02/26/24 08:13 Vital Signs Vital Signs - 24 hr 05/03/24 19:17 05/03/24 19:36 05/03/24 20:20 Temperature 40.6 C H Pulse Rate 104 H 92 Respiratory Rate 28 H Blood Pressure Pulse Oximetry Oxygen Delivery Room Air Oxygen Flow Rate 05/03/24 19:35 05/03/24 19:36 05/03/24 19:45 Temperature Pulse Rate 99 98 104 H Respiratory Rate 35 H 40 H 35 H Blood Pressure 117/48 L Pulse Oximetry 94 89 L Oxygen Delivery Oxygen Flow Rate 05/03/24 19:56 05/03/24 20:00 05/03/24 20:23 Temperature 40.2 C H 40.2 C H 40.6 C H Pulse Rate 97 97 93 Respiratory Rate 33 H 46 H 23 H Blood Pressure 65/46 L Pulse Oximetry 96 97 Oxygen Delivery Oxygen Flow Rate 05/03/24 20:55 05/03/24 20:58 05/03/24 21:00 Temperature 40.4 C H 40.4 C H Pulse Rate 98 84 81 Respiratory Rate 35 H 37 H 40 H Blood Pressure 117/69 Pulse Oximetry 92 94 91 Oxygen Delivery Oxygen Flow Rate 05/03/24 21:01 05/03/24 21:15 05/03/24 21:16 Temperature 40.3 C H 40.2 C H 40.2 C H Pulse Rate 76 86 94 Respiratory Rate 44 H 24 H 34 H Blood Pressure 111/73 102/71 Pulse Oximetry 93 90 94 Oxygen Delivery Oxygen Flow Rate 05/03/24 21:30 05/03/24 21:31 05/03/24 21:32 Temperature 39.9 C H 39.9 C H 39.9 C H Pulse Rate 80 84 84 Respiratory Rate 36 H 34 H 26 H Blood Pressure 101/59 L Pulse Oximetry 89 L 97 94 Oxygen Delivery Oxygen Flow Rate 05/03/24 21:45 05/03/24 21:46 05/03/24 21:58 Temperature 39.7 C H 39.7 C H 39.4 C H Pulse Rate 95 81 83 Respiratory Rate 28 H 34 H 19 Blood Pressure 81/51 L 99/63 L Pulse Oximetry 82 L 83 L 96 Oxygen Delivery Oxygen Flow Rate 05/03/24 22:00 05/03/24 22:01 05/03/24 22:02 Temperature 39.4 C H 39.4 C H 39.4 C H Pulse Rate 83 79 79 Respiratory Rate 15 28 H 21 H Blood Pressure Pulse Oximetry 96 96 95 Oxygen Delivery Oxygen Flow Rate 05/03/24 22:06 05/03/24 22:03 05/03/24 22:08 Temperature 39.3 C H 39.4 C H 39.3 C H Pulse Rate 80 81 Respiratory Rate 27 H 24 H Blood Pressure 88/66 L Pulse Oximetry 94 92 Oxygen Delivery Oxygen Flow Rate 05/03/24 22:10 05/03/24 22:11 05/03/24 22:12 Temperature 39.3 C H 39.3 C H 39.2 C H Pulse Rate 80 80 80 Respiratory Rate 27 H 22 H 22 H Blood Pressure 86/63 L 94/61 L Pulse Oximetry 95 95 95 Oxygen Delivery Oxygen Flow Rate 05/03/24 22:15 05/03/24 22:16 05/03/24 22:32 Temperature 39.2 C H 39.2 C H 38.9 C H Pulse Rate 80 80 80 Respiratory Rate 33 H 25 H 25 H Blood Pressure 96/61 L Pulse Oximetry 95 95 96 Oxygen Delivery Oxygen Flow Rate 05/03/24 22:45 05/03/24 22:46 05/04/24 00:50 Temperature 38.7 C H 38.7 C H 37.9 C H Pulse Rate 80 80 80 Respiratory Rate 17 24 H 33 H Blood Pressure 96/63 L 105/69 Pulse Oximetry 97 95 97 Oxygen Delivery Oxygen Flow Rate 05/03/24 22:47 05/03/24 23:18 05/03/24 23:19 Temperature 38.7 C H 38.3 C H 38.3 C H Pulse Rate 86 80 87 Respiratory Rate 17 33 H 22 H Blood Pressure 108/66 Pulse Oximetry 96 97 96 Oxygen Delivery Oxygen Flow Rate 05/03/24 23:39 05/03/24 23:52 05/03/24 23:56 Temperature 38.1 C H 37.9 C H 37.9 C H Pulse Rate 80 80 80 Respiratory Rate 26 H 16 33 H Blood Pressure 105/69 Pulse Oximetry 97 96 97 Oxygen Delivery Oxygen Flow Rate 05/04/24 00:01 05/04/24 00:02 05/04/24 00:28 Temperature 37.8 C H 37.8 C H 37.5 C Pulse Rate 80 80 80 Respiratory Rate 26 H 27 H 10 L Blood Pressure 105/79 Pulse Oximetry 96 96 98 Oxygen Delivery Oxygen Flow Rate 05/04/24 01:34 05/04/24 02:00 05/04/24 02:00 Temperature 36.9 C 36.9 C Pulse Rate 80 80 80 Respiratory Rate 20 24 H Blood Pressure 116/89 116/89 Pulse Oximetry 99 99 Oxygen Delivery Oxygen Flow Rate 05/04/24 01:30 05/04/24 03:55 05/04/24 04:22 Temperature 35.5 C L 35.7 C L Pulse Rate Respiratory Rate Blood Pressure Pulse Oximetry 98 Oxygen Delivery Nasal Cannula Oxygen Flow Rate 2 05/04/24 04:00 05/04/24 04:00 05/04/24 04:00 Temperature 35.7 C L Pulse Rate 80 80 Respiratory Rate 22 H Blood Pressure 114/78 Pulse Oximetry 99 98 Oxygen Delivery Nasal Cannula Oxygen Flow Rate 2 05/04/24 05:00 05/04/24 06:00 05/04/24 06:00 Temperature 36.4 C L 36.1 C L Pulse Rate 80 80 Respiratory Rate 22 H Blood Pressure 102/86 Pulse Oximetry 96 Oxygen Delivery Oxygen Flow Rate 05/04/24 08:00 05/04/24 08:00 05/04/24 10:00 Temperature Pulse Rate 80 80 Respiratory Rate Blood Pressure Pulse Oximetry 99 Oxygen Delivery Nasal Cannula Oxygen Flow Rate 2 05/04/24 08:00 05/04/24 10:00 05/04/24 12:00 Temperature 35.8 C L 35.9 C L Pulse Rate 80 80 Respiratory Rate 19 25 H Blood Pressure 140/118 H 105/73 Pulse Oximetry 99 99 100 Oxygen Delivery Nasal Cannula Oxygen Flow Rate 1 05/04/24 12:00 05/04/24 12:00 05/04/24 13:56 Temperature 35.7 C L Pulse Rate 81 80 Respiratory Rate 25 H Blood Pressure 108/73 Pulse Oximetry 99 98 Oxygen Delivery Room Air Oxygen Flow Rate 05/04/24 14:00 05/04/24 14:00 Temperature 36.1 C L Pulse Rate 80 80 Respiratory Rate 17 Blood Pressure 101/73 Pulse Oximetry 97 Oxygen Delivery Oxygen Flow Rate Exam Narrative: no obvious acute distress, normocephalic head with no bruit, pupils equal and reactive, neck supple with no meningeal signs, heart paced, lungs with bilateral rhonchi, abdomen is soft nontender, neurologically awake alert able to follow a few instructions able to follow the instructions to move upper and lower extremities with decreased strength particularly on the left side sluggish reflexes and upgoing plantar response on the Results Labs 05/04/24 04:40 05/04/24 04:40 Labs: Short CBC 05/03/24 05/04/24 Range/Units 19:45 04:40 WBC 30.8 H 27.6 H (4.5-10.0) K/mm3 Hgb 10.8 L D 9.8 L (14.0-18.0) g/dL Hct 34.4 L 30.5 L (42.0-52.0) % Plt Count 449 H D 354 (150-375) k/mm3 BMP 05/03/24 05/04/24 19:45 04:40 Sodium 137 137 Potassium 5.9 H 5.1 H Chloride 107 113 H Carbon Dioxide 12 L 14 L BUN 53 H D 58 H Creatinine 3.40 H 3.50 H Glucose 258 H 262 H Calcium 10.2 9.0 Cardiac Enzymes 05/03/24 05/03/24 05/04/24 Range/Units 19:45 22:29 04:40 Total Creatine Kinase 531 H 735 H (55-170) U/L Troponin I 0.170 H* 0.294 H* D (0.000-0.034) ng/mL Liver Function 05/03/24 05/04/24 Range/Units 19:45 04:40 Total Bilirubin 1.3 0.9 (0.2-1.3) mg/dL AST 65 H 59 (17-59) U/L ALT 60 H 50 (6-50) U/L Alkaline Phosphatase 224 H 154 H (38-126) U/L Albumin 3.6 3.0 L (3.5-5.1) g/dL Urine 05/03/24 Range/Units 19:47 Urine Color Dark yellow (Yellow) Urine Appearance Cloudy H (Clear) Urine pH 5.0 (5.0-9.0) Ur Specific [place] 1.020 (1.001-1.035) Urine Protein 2+ H (Negative) mg/dL Urine Glucose (UA) Negative (Negative) mg/dL
[2024-05-04] MEDS: diphenhydrAMINE HCL ELIXIR 12.5 MG/5 ML UDC PO ×2 (15:27→20:29)
[2024-05-04] MEDS: TRIAMCINOLONE ACET 0.1% CREAM 80 GM TUBE 1 APPLIC TOPICAL (16:53)
[2024-05-04 17:00] LABS: Glucose Point of Care 164 mg/dl (65-105)
[2024-05-04 20:29] LABS: Glucose Point of Care 193 mg/dl (65-105)
[2024-05-05] VITALS (20 sets, daily range): BP systolic 116–176; BP diastolic 46–98; PULSE 80; RESP 14–30; TEMP 36.7–37.9; O2SAT 91–98
[2024-05-05] MEDS: PIPERACILLIN/TAZ 2.25G/NS 50ML 2.25 GM/50 ML BAG IVPB ×4 (00:35→17:38)
[2024-05-05] MEDS: SODIUM BICARBONATE 8.4% 150 MEQ in WATER, STERILE FOR INJECTION 950 ML 100 MEQ IV CONT (00:35)
[2024-05-05] MEDS: ALBUMIN HUMAN 25% 25 GM/100 ML 100 ML IVPB (02:05)
[2024-05-05 04:19] LABS: Basophils Percent Auto 0.2 % (0.2-1.2); Eosinophils Percent Auto 0.2 % (0-4.4); Hematocrit 27.1 % (42.0-52.0); Hemoglobin 8.9 g/dL (14.0-18.0); Immature Granulocyte Absolute 0.14 K/mm3 (0.00-0.031); Immature Granulocyte Percent A 0.7 % (0-0.5); Lymphocytes Absolute Auto 0.71 K/mm3 (0.9-3.2); Lymphocytes Percent Auto 3.5 % (18.3-44.2); Mean Corpuscular HGB Conc 32.8 g/dl (32-36); Mean Corpuscular Hemoglobin 32.6 pg (26-34); Mean Corpuscular Volume 99.3 fl (80-100); Mean Platelet Volume 10.1 fl (7.4-10.4); Monocytes Absolute Auto 1.1 K/mm3 (0.1-0.6); Monocytes Percent Auto 5.4 % (2.6-8.5); Neutrophils Absolute Auto 18.3 K/mm3 (1.3-6.7); Nucleated Red Blood Cells Perc 0.3 % (0.0-0.2); Platelet Count Result 325 k/mm3 (150-375); Red Blood Count 2.73 M/mm3 (4.6-6.20); White Blood Count 20.3 K/mm3 (4.5-10.0)
[2024-05-05 04:32] LABS: Lactic Acid Reflex 1.1 mmol/L (0.7-2.0)
[2024-05-05 04:36] LABS: Alanine Aminotransferase 44 U/L (6-50); Albumin Level 3.4 g/dL (3.5-5.1); Alkaline Phosphatase 122 U/L (38-126); Anion Gap 15 mmol/L (4-12); Aspartate Amino Transferase 56 U/L (17-59); Bilirubin,Total 0.9 mg/dL (0.2-1.3); Blood Urea Nitrogen 68 mg/dL (9-20); Calcium 8.9 mg/dL (8.4-10.2); Carbon Dioxide 18 mmol/L (22-30); Chloride 106 mmol/L (98-107); Creatine Kinase 359 U/L (55-170); Estimated CRCL calculation 29 ml/min; Estimated Glomerular Filt Rate 20; Glucose 224 mg/dL (65-110); Magnesium 1.9 mg/dL (1.6-2.3); Phosphorus 4.1 mg/dL (2.5-4.5); Potassium 4.1 mmol/L (3.4-5.0); Sodium 139 mmol/L (137-145)
[2024-05-05 04:40] LABS: INR 1.6
[2024-05-05 04:41] LABS: Partial Thromboplastin Time 40.5 Seconds (22.3-36.8)
[2024-05-05 04:43] LABS: Anisocytosis 1+; Burr Cells 2+; Hypochromasia 1+; Platelet Estimate Adequate (Adequate); Poikilocytosis 1+; Schistocytes None Seen
[2024-05-05 04:44] LABS: CRP 18.7 mg/dL (<1.0)
[2024-05-05 06:42] LABS: Hepatitis B Surface Antigen Negative (Negative)
[2024-05-05 06:58] LABS: Hepatitis B Surface Anti Res Negative
[2024-05-05 08:45] LABS: Glucose Point of Care 205 mg/dl (65-105)
[2024-05-05] MEDS: guaiFENesin/DEXTROMETHORPHAN 10 ML UDC PO ×3 (08:45→21:56)
[2024-05-05] MEDS: TRIAMCINOLONE ACET 0.1% CREAM 80 GM TUBE 1 APPLIC TOPICAL ×2 (08:45→21:55)
[2024-05-05] MEDS: SODIUM BICARBONATE TAB 650 MG TABLET PO ×2 (08:45→17:37)
[2024-05-05] MEDS: PANTOPRAZOLE SODIUM IV 40 MG VIAL IV PUSH (08:45)
[2024-05-05] MEDS: ASPIRIN 325 MG TABLET PO (08:45)
[2024-05-05] MEDS: LINEZOLID 600 MG/300 ML 600 MG/300 ML SOLN 300 MG IVPB ×2 (08:45→21:56)
[2024-05-05] MEDS: ATORVASTATIN 40 MG TABLET PO (08:45)
[2024-05-05] MEDS: INSULIN ASPART (*BKC) 100 UNITS/ML SUB-Q ×3 (08:53→18:40)
[2024-05-05] MEDS: IPRATROPIUM 0.5 MG/ALBUTEROL SULFATE 2.5 MG AMPUL.NEB 3 ML INHALATION ×3 (08:57→20:05)
--- NOTE | 2024-05-05 10:03 | P.PNNP_ITS ---
Progress Note: A&P Assessment and Plan (1) Acute kidney injury: Code(s): N17.9 - Acute kidney failure, unspecified Status: Acute Assessment and Plan: * as noted by admission labs -- creatinine 3.40mg/dl * suspect multifactorial etiology * hypotension/hemodynamic instability on admission * sepsis/infection * rhabdomyolysis * element of disease progression (?) * s/p IVF resuscitation along with bicarb fluids * evaluation to date noted: * CT scan of the abdomen/pelvis did not show any hydronephrosis * renal ultrasound normal * urine electrolytes prerenal * urine eosinophils negative * CPK mildly elevated - follow trend * UA with 2+ protein and 1+ blood * follow trend of repeat labs and UOP (2) Stage 3a chronic kidney disease: Code(s): N18.31 - Chronic kidney disease, stage 3a Status: Chronic Assessment and Plan: * creatinine running ~ 1.3 - 1.4mg/dl (although last labs are from 2020) * presumably secondary to hypertension, diabetes, and vascular disease * cannot discount an element of CKD progression (since last labs available are from 3 years ago....) (3) Sepsis: Code(s): A41.9 - Sepsis, unspecified organism Status: Acute Assessment and Plan: * as noted on presentation with AMS, high fevers, lactic acidosis, and tachycardia * s/p aggressive IVF resuscitation * bicarb IVFs for acidosis * follow culture data * on empiric antibiotics * no need for vasopressor therapy at this time * follow trend of hemodynamics (4) Acute CVA (cerebrovascular accident): Code(s): I63.9 - Cerebral infarction, unspecified Status: Acute Assessment and Plan: * presentation with AMS as well as facial droop + weakness * admission head CT showed acute infarct involving a portion of the right MCA territory * not a candidate for tPA as unclear when he was last at baseline * found on the floor - unclear duration as well * Neurology following (5) Diabetic foot ulcer: Qualifiers: Diabetes mellitus type: type 2 Diabetic foot ulcer location: midfoot Laterality: right Non-pressure ulcer stage: with muscle involvement without evidence of necrosis Qualified Code(s): E11.621 - Type 2 diabetes mellitus with foot ulcer; L97.415 - Non-pressure chronic ulcer of right heel and midfoot with muscle involvement without evidence of necrosis Code(s): E11.621 - Type 2 diabetes mellitus with foot ulcer; L97.509 - Non-pressure chronic ulcer of other part of unspecified foot with unspecified severity Status: Acute Assessment and Plan: * extensive LE wounds on feet and heels * left foot x-ray showed no evidence of osteomyelitis * right foot x-ray showed soft tissue gas in the plantar aspect of the heel, no evidence of osteomyelitis * Surgery following * will need debridement in the OR (6) Rhabdomyolysis: Qualifiers: Rhabdomyolysis type: non-traumatic Qualified Code(s): M62.82 - Rhabdomyolysis Code(s): M62.82 - Rhabdomyolysis Status: Acute Assessment and Plan: * found down for unknown amount of time * mildly elevated CPK noted on admission * on bicarb fluids for acidosis and this issue * follow trend of CPK (7) Hypertension: Code(s): I10 - Essential (primary) hypertension Status: Acute Assessment and Plan: * known history * BP medications were on hold due to sepsis and hypotension on admission * BP appears to be creeping up to baseline * resume home medications (excluding ARB and diuretics) slowly * follow trend of hemodynamics (8) Type 2 diabetes mellitus: Code(s): E11.9 - Type 2 diabetes mellitus without complications Status: Acute Assessment and Plan: * follow accu-cheks * glycemic control per associate faculty/hospitalist Will continue to follow. Subjective Date/time seen: 05/05/24 10:03 Interval history: Follow-up for acute kidney injury/acute renal failure on chronic kidney disease. No apparent distress noted at the time of my visit -- remains hemodynamically stable (and has not required vasopressor therapy since ICU admission); urine output still suboptimal but seems to be better with stability if not mild improvement in renal function/creatinine; remains on bicarb fluids with down trending CPK; major complaint was that of a cough and associated wheezing. Exam Narrative: General: WD/WN male in NAD Heart: normal S1 and S2; no rub Lungs: clear anteriorly Abdomen: soft, nontender, nondistended, positive bowel sounds Extremities: no cyanosis or clubbing; 1+ edema Skin: chronic venous stasis changes with dressings in place over feet/LEs Objective Data Vital Signs Vital Signs: Vital Signs Temp Pulse Resp BP Pulse Ox O2 Del Method O2 Flow Rate 05/05/24 08:00 100.2 F H 80 20 176/46 H 98 05/05/24 09:03 80 20 05/05/24 08:57 80 24 H 05/05/24 08:57 95 Nasal Cannula 2 05/05/24 08:52 Nasal Cannula 2 05/05/24 08:33 94 Nasal Cannula 2 05/05/24 06:00 80 23 H 137/74 93 05/05/24 04:00 80 05/05/24 04:00 100.2 F H 80 29 H 124/80 93 05/05/24 04:00 92 Nasal Cannula 2 05/05/24 00:00 94 Nasal Cannula 2 05/05/24 02:00 80 24 H 119/73 94 05/05/24 00:00 100.1 F H 80 28 H 118/74 95 05/05/24 00:00 80 05/05/24 00:00 94 Nasal Cannula 2 05/04/24 22:00 80 26 H 123/98 H 93 05/04/24 22:00 80 05/04/24 20:00 80 05/04/24 20:00 99.7 F H 80 21 H 123/98 H 96 05/04/24 20:00 Room Air 05/04/24 18:00 98.0 F 80 21 H 104/66 95 05/04/24 18:00 80 05/04/24 16:00 80 05/04/24 16:00 97.5 F L 80 21 H 108/72 95 05/04/24 16:00 95 Room Air 05/04/24 14:00 97 F L 80 17 101/73 97 05/04/24 14:00 80 05/04/24 13:56 98 Room Air 05/04/24 12:00 96.2 F L 80 25 H 108/73 99 05/04/24 12:00 81 05/04/24 12:00 100 Nasal Cannula 1 Intake/Output Intake/Output: Intake & Output 05/02/24 05/03/24 05/04/24 05/05/24 23:59 23:59 23:59 23:59 Intake Total 3750 2768.3 1390 Output Total 350 350 Balance 3750 2418.3 1040 Meds/Results Medications: Active Medications Generic Name Dose Route Start Last Admin Trade Name Freq PRN Reason Stop Dose Admin Acetaminophen 650 mg 05/03/24 23:51 Acetaminophen 650 Mg Suppository RECTAL Q6H PRN Mild Pain (1-3) or Fever Albuterol/Ipratropium 3 ml 05/04/24 01:39 Ipratropium 0.5 Mg/Albuterol Sulfate 2.5 Mg Ampul.Neb 3 Ml INHALATION Q6HRT PRN shortness of breath or wheezing Albuterol/Ipratropium 3 ml 05/05/24 08:40 05/05/24 08:57 Ipratropium 0.5 Mg/Albuterol Sulfate 2.5 Mg Ampul.Neb 3 Ml INHALATION 3 ml Q6HRT JHOANA Administration Aspirin 325 mg 05/05/24 09:00 05/05/24 08:45 Aspirin 325 Mg Tablet PO 325 mg DAILY@0800 JHOANA Administration Atorvastatin Calcium 40 mg 05/04/24 09:00 05/05/24 08:45 Atorvastatin 40 Mg Tablet PO 40 mg DAILY JHOANA Administration Dextrose 12.5 gm 05/04/24 01:34 Dextrose 50% 25 Gm/50 Ml Syringe IV PUSH PRN PRN Hypoglycemia Protocol Diphenhydramine HCl 12.5 mg 05/04/24 15:08 05/04/24 20:29 Diphenhydramine Hcl Elixir 12.5 Mg/5 Ml Udc PO 12.5 mg Q6H PRN Administration Itching Glucagon 1 mg 05/04/24 01:34 Glucagon For Inj 1 Mg Vial IM PRN PRN Hypoglycemia Protocol Glucose 15 gm 05/04/24 01:34 Glucose Oral Gel 15 Gm Of Glucse In 37.5 Gm Tube PO PRN PRN Hypoglycemia Protocol Guaifenesin/Dextromethorphan 10 ml 05/05/24 08:37 05/05/24 08:45 Guaifenesin/Dextromethorphan 10 Ml Udc PO 10 ml Q4H PRN Administration Cough Sodium Bicarbonate 150 meq/ 1,100 mls @ 100 mls/hr 05/04/24 02:30 05/05/24 00:35 Sterile Water IV CONT 100 mls/hr .Q11H JHOANA Administration Dextrose 1,000 mls @ 100 mls/hr 05/04/24 01:34 Dextrose 5% 1,000 Ml IVPB PRN PRN Hypoglycemia Protocol Piperacillin Sod/Tazobactam Sod 2.25 gm in 50 mls @ 100 mls/hr 05/04/24 12:00 05/05/24 05:02 Zosyn 2.25 Gm/Ns 50 Ml IVPB 100 mls/hr Q6H JHOANA Administration Linezolid 600 mg in 300 mls @ 300 mls/hr 05/04/24 10:35 05/05/24 08:45 Zyvox IVPB 300 mls/hr Q12HR JHOANA Administration Insulin Aspart 3 - 6 units 05/05/24 06:30 05/05/24 08:53 Insulin Aspart (*Bkc) 100 Units/Ml SUB-Q 3 units AC JHOANA Administration Protocol Loratadine 10 mg 05/04/24 08:51 05/04/24 11:45 Loratadine 10 Mg Tablet PO 10 mg QAM PRN Administration itching Ondansetron HCl 4 mg 05/03/24 23:51 Ondansetron Inj 4 Mg/2 Ml Vial IV PUSH Q4H PRN Nausea Pantoprazole Sodium 40 mg 05/04/24 09:00 05/05/24 08:45 Pantoprazole Sodium Iv 40 Mg Vial IV PUSH 40 mg QAM JHOANA Administration Sodium Bicarbonate 650 mg 05/05/24 09:00 05/05/24 08:45 Sodium Bicarbonate Tab 650 Mg Tablet PO 05/07/24 08:59 650 mg BID JHOANA Administration Triamcinolone Acetonide 1 applic 05/04/24 09:00 05/05/24 08:45 Triamcinolone Acet 0.1% Cream 80 Gm Tube TOPICAL 1 applic BID JHOANA Administration Radiology Results: ITS Impressions Head CT 05/03/24 20:56 IMPRESSION: Acute infarct involving a portion of the right MCA territory. Results reported telephonically to Dr. Duong by Dr. Langford at 9:01 PM on 05/03/2024. Cervical Spine CT 05/03/24 21:01 IMPRESSION: No acute fracture or traumatic malalignment in the cervical spine. Abdomen/Pelvis CT 05/03/24 21:06 IMPRESSION: No acute abdominopelvic process detected. Foot X-Ray 05/04/24 07:08 IMPRESSION: 1. Soft tissue gas in the plantar aspect of the heel. No evidence of osteomyelitis. Carotid Doppler Study 05/04/24 14:15 IMPRESSION: 1. <50% stenosis in the right internal carotid artery. 2. <50% stenosis in the left internal carotid artery. Renal Ultrasound 05/04/24 14:16 IMPRESSION: No definite abnormality. Chest X-Ray 05/05/24 06:38 IMPRESSION: 1. Cardiomegaly and pulmonary vascular congestion without parish pulmonary edema. Labs Labs: Laboratory Tests 05/05/24 04:13 05/05/24 04:13 Lactic Acid 1.1 Calcium 8.9 Phosphorus 4.1 Magnesium 1.9 Total Bilirubin 0.9 AST 56 ALT 44 Alkaline Phosphatase 122 Total Creatine Kinase 359 H C-Reactive Protein 18.7 H Total Protein 7.0 Albumin 3.4 L Microbiology 05/03/24 19:47 Blood Blood Culture - Preliminary 05/03/24 19:45 Blood Blood Culture - Preliminary
--- NOTE | 2024-05-05 11:07 | WPDINTPN ---
Progress Note: A&P Assessment and Plan (1) Acute CVA (cerebrovascular accident): Code(s): I63.9 - Cerebral infarction, unspecified Status: Acute Assessment and Plan: 05/03: Patient presented with altered mental status, noted to have some facial droop and weakness. - Head CT showed acute infarct involving a portion of the right MCA territory -patient not a candidate for tPA as last well known time is unavailable -patient was found on the floor, with altered mental status, has not been seen by anybody for approximately 10 days any spoke to a friend 2 days prior to coming to the ER. This is according to the records -continue statin, will start aspirin, -appreciate Neurology evaluation -patient has a pacemaker so may not be a candidate for MRI (2) Sepsis: Code(s): A41.9 - Sepsis, unspecified organism Status: Acute Assessment and Plan: Patient presented with altered mental status, fevers of 105? F, elevated lactic acid of 5.3, tachycardia -patient was given 30 mL/kg IV fluid bolus -repeat lactic was 1.8 -mild elevation in troponin is likely related to ischemic demand as patient denies any chest pain, EKG did not show any ST elevations which showed paced rhythm -continue sodium bicarb infusion for now -05/03: Blood cultures have been obtained -discontinued cefepime and vancomycin 05/04: Continue linezolid and Zosyn -will maintain mean arterial pressures greater than 65 mmHg at all times for adequate end organ perfusion, patient has not required any pressors since admission to the ICU (3) Diabetic foot ulcer: Qualifiers: Diabetes mellitus type: type 2 Diabetic foot ulcer location: midfoot Laterality: right Non-pressure ulcer stage: with muscle involvement without evidence of necrosis Qualified Code(s): E11.621 - Type 2 diabetes mellitus with foot ulcer; L97.415 - Non-pressure chronic ulcer of right heel and midfoot with muscle involvement without evidence of necrosis Code(s): E11.621 - Type 2 diabetes mellitus with foot ulcer; L97.509 - Non-pressure chronic ulcer of other part of unspecified foot with unspecified severity Status: Acute Assessment and Plan: Patient has bilateral diabetic foot ulcers -Left foot x-ray showed no evidence of osteomyelitis -Right foot x-ray showed soft tissue gas in the plantar aspect of the heel, no evidence of osteomyelitis -surgery has been consulted due to soft tissue gas (4) Type 2 diabetes mellitus: Code(s): E11.9 - Type 2 diabetes mellitus without complications Status: Acute Assessment and Plan: Continue Accu-Cheks, sliding scale insulin -hemoglobin A1c is 8.4% (5) Acute kidney injury: Code(s): N17.9 - Acute kidney failure, unspecified Status: Acute Assessment and Plan: 05/03: Patient presented with acute kidney injury on admission, creatinine of 3.40. (baseline creatinine is 0.90-1.40 in September 2020) -patient has a history of hypertension, diabetes, is on Lasix, valsartan carvedilol, diltiazem at home. Unknown how long he was hypotensive prior to coming to the hospital, could be related to infection, ATN -patient received 30 mL/kg IV fluid bolus -currently on sodium bicarb infusion at 75 mL/hour -also receiving albumin for volume expansion given that he has a history of heart failure -CK levels trending down -CT scan of the abdomen and pelvis did not show any hydronephrosis, will obtain renal ultrasound -nephrology has been has been consulted -monitor urine output, renal function electrolytes -maintain mean arterial pressures greater than 65 at all times (6) Rhabdomyolysis: Qualifiers: Rhabdomyolysis type: non-traumatic Qualified Code(s): M62.82 - Rhabdomyolysis Code(s): M62.82 - Rhabdomyolysis Status: Acute Assessment and Plan: Patient rolled off his couch and was on the floor for unknown amount of time -elevated CK levels -CK levels trending down -continue sodium bicarb infusion (7) Parkinsons disease: Code(s): G20 - Parkinson's disease Status: Acute Assessment and Plan: History of Parkinson's disease (8) Hypertension: Code(s): I10 - Essential (primary) hypertension Status: Acute Assessment and Plan: History of essential hypertension -will hold all antihypertensives as patient has borderline blood pressures (9) Hyperlipidemia: Code(s): E78.5 - Hyperlipidemia, unspecified Status: Acute Assessment and Plan: Continue atorvastatin (10) Asthma: Code(s): J45.909 - Unspecified asthma, uncomplicated Status: Acute Assessment and Plan: Patient complaining of dry cough, wheezing, states he has a history of asthma and takes inhaler p.r.n. -also start patient on bronchodilator -added p.r.n. Robitussin Plan DVT prophylaxis: SCDs, no chemoprophylaxis due to acute stroke as there could be risk of hemorrhagic transformation Stress ulcer prophylaxis: Protonix Nutrition: Appreciate speech evaluation, on diabetic soft and bite size diet Code Status: Do not resuscitate Critical Care Time Spent: 32 minutes -discuss with patient and updated with his condition and plan of care. I answered all his questions -patient may transfer out of the ICU if okay with hospitalist team Due to a high probability of clinically significant, life threatening deterioration, the patient required my highest level of preparedness to intervene emergently and I personally spent this critical care time directly and personally managing the patient. This critical care time included obtaining a history; examining the patient; pulse oximetry; ordering and review of studies; arranging urgent treatment with development of a management plan; evaluation of patient's response to treatment; frequent reassessment; and discussions with other providers. It was exclusive of separately billable procedures and treating other patients and teaching time. Please see Assessment and Plan section and the rest of the note for further information on patient assessment and treatment This dictation may have been done utilizing a voice recognition system. Attempts have been made to correct errors. However, there may be uncorrected grammatical, spelling, and recognitions errors present. Subjective Date/time seen: 05/05/24 11:07 Interval history: Reason for consult: Acute CVA, altered mental status, rhabdomyolysis, diabetic foot ulcer, sepsis 05/05/2024: Patient seen and examined the ICU, pre is awake, alert, answers to questions appropriately and follows simple commands. Hemodynamically stable has not required any pressors since admission the ICU. Urine output is low but improving, on sodium bicarb infusion. CK levels trending down. Patient has been afebrile, hemodynamically stable, creatinine trending down. Patient was complaining of wheezing and coughing, he does state that he has a history of asthma Review of Systems Review of Systems: All systems reviewed & are unremarkable except as noted in HPI and below Exam Narrative: General: Pleasant gentleman in no acute distress HEENT:? Pupils equal and reactive, sclera is clear, dry oral mucosa Neck:? Supple Respiratory:? Clear to auscultation bilaterally, decreased at bases, adequate air entry, expiratory wheeze on the right side Cardiac:? Paced rhythm Abdomen:? Soft, nontender, protuberant, nondistended, normoactive bowel sounds Extremities:? Bilateral lower feet in dressing, 1+ pitting edema, palpable pedal pulses Neuro:? Patient is awake, alert, oriented x3, able to move all extremities, strength 4/5 in bilateral upper extremity and 3/5 in bilateral lower extremity, sensations are diminished in the lower extremities Skin:? Chronic venous stasis changes on bilateral lower extremities, Psych:? Depressed affect Objective Data Vital Signs Vital Signs: Vital Signs - 24 hr 05/04/24 12:00 05/04/24 12:00 05/04/24 12:00 Temperature 96.2 F L Pulse Rate 81 80 Respiratory Rate 25 H Blood Pressure 108/73 Pulse Oximetry 100 99 Oxygen Delivery Nasal Cannula Oxygen Flow Rate 1 Fraction of Inspired Oxygen 05/04/24 13:56 05/04/24 14:00 05/04/24 14:00 Temperature 97 F L Pulse Rate 80 80 Respiratory Rate 17 Blood Pressure 101/73 Pulse Oximetry 98 97 Oxygen Delivery Room Air Oxygen Flow Rate Fraction of Inspired Oxygen 05/04/24 16:00 05/04/24 16:00 05/04/24 16:00 Temperature 97.5 F L Pulse Rate 80 80 Respiratory Rate 21 H Blood Pressure 108/72 Pulse Oximetry 95 95 Oxygen Delivery Room Air Oxygen Flow Rate Fraction of Inspired Oxygen 05/04/24 18:00 05/04/24 18:00 05/04/24 20:00 Temperature 98.0 F Pulse Rate 80 80 Respiratory Rate 21 H Blood Pressure 104/66 Pulse Oximetry 95 Oxygen Delivery Room Air Oxygen Flow Rate Fraction of Inspired Oxygen 05/04/24 20:00 05/04/24 20:00 05/04/24 22:00 Temperature 99.7 F H Pulse Rate 80 80 80 Respiratory Rate 21 H Blood Pressure 123/98 H Pulse Oximetry 96 Oxygen Delivery Oxygen Flow Rate Fraction of Inspired Oxygen 05/04/24 22:00 05/05/24 00:00 05/05/24 00:00 Temperature Pulse Rate 80 80 Respiratory Rate 26 H Blood Pressure 123/98 H Pulse Oximetry 93 94 Oxygen Delivery Nasal Cannula Oxygen Flow Rate 2 Fraction of Inspired Oxygen 05/05/24 00:00 05/05/24 02:00 05/05/24 00:00 Temperature 100.1 F H Pulse Rate 80 80 Respiratory Rate 28 H 24 H Blood Pressure 118/74 119/73 Pulse Oximetry 95 94 94 Oxygen Delivery Nasal Cannula Oxygen Flow Rate 2 Fraction of Inspired Oxygen 05/05/24 04:00 05/05/24 04:00 05/05/24 04:00 Temperature 100.2 F H Pulse Rate 80 80 Respiratory Rate 29 H Blood Pressure 124/80 Pulse Oximetry 92 93 Oxygen Delivery Nasal Cannula Oxygen Flow Rate 2 Fraction of Inspired Oxygen 05/05/24 06:00 05/05/24 08:33 05/05/24 08:52 Temperature Pulse Rate 80 Respiratory Rate 23 H Blood Pressure 137/74 Pulse Oximetry 93 94 Oxygen Delivery Nasal Cannula Nasal Cannula Oxygen Flow Rate 2 2 Fraction of Inspired Oxygen 05/05/24 08:57 05/05/24 08:57 05/05/24 09:03 Temperature Pulse Rate 80 80 Respiratory Rate 24 H 20 Blood Pressure Pulse Oximetry 95 Oxygen Delivery Nasal Cannula Oxygen Flow Rate 2 Fraction of Inspired Oxygen 05/05/24 08:00 05/05/24 10:00 Temperature 100.2 F H 98.8 F Pulse Rate 80 80 Respiratory Rate 20 30 H Blood Pressure 176/46 H 119/74 Pulse Oximetry 98 94 Oxygen Delivery Oxygen Flow Rate Fraction of Inspired Oxygen Intake/Output Intake/Output: Intake & Output 05/02/24 05/03/24 05/04/24 05/05/24 23:59 23:59 23:59 23:59 Intake Total 3750 2768.3 1390 Output Total 350 350 Balance 3750 2418.3 1040 Meds/Results Medications: Active Medications Generic Name Dose Route Start Last Admin Trade Name Freq PRN Reason Stop Dose Admin Acetaminophen 650 mg 05/03/24 23:51 Acetaminophen 650 Mg Suppository RECTAL Q6H PRN Mild Pain (1-3) or Fever Albuterol/Ipratropium 3 ml 05/04/24 01:39 Ipratropium 0.5 Mg/Albuterol Sulfate 2.5 Mg Ampul.Neb 3 Ml INHALATION Q6HRT PRN shortness of breath or wheezing Albuterol/Ipratropium 3 ml 05/05/24 08:40 05/05/24 08:57 Ipratropium 0.5 Mg/Albuterol Sulfate 2.5 Mg Ampul.Neb 3 Ml INHALATION 3 ml Q6HRT JHOANA Administration Aspirin 325 mg 05/05/24 09:00 05/05/24 08:45 Aspirin 325 Mg Tablet PO 325 mg DAILY@0800 JHOANA Administration Atorvastatin Calcium 40 mg 05/04/24 09:00 05/05/24 08:45 Atorvastatin 40 Mg Tablet PO 40 mg DAILY JHOANA Administration Dextrose 12.5 gm 05/04/24 01:34 Dextrose 50% 25 Gm/50 Ml Syringe IV PUSH PRN PRN Hypoglycemia Protocol Diphenhydramine HCl 12.5 mg 05/04/24 15:08 05/04/24 20:29 Diphenhydramine Hcl Elixir 12.5 Mg/5 Ml Udc PO 12.5 mg Q6H PRN Administration Itching Glucagon 1 mg 05/04/24 01:34 Glucagon For Inj 1 Mg Vial IM PRN PRN Hypoglycemia Protocol Glucose 15 gm 05/04/24 01:34 Glucose Oral Gel 15 Gm Of Glucse In 37.5 Gm Tube PO PRN PRN Hypoglycemia Protocol Guaifenesin/Dextromethorphan 10 ml 05/05/24 08:37 05/05/24 08:45 Guaifenesin/Dextromethorphan 10 Ml Udc PO 10 ml Q4H PRN Administration Cough Dextrose 1,000 mls @ 100 mls/hr 05/04/24 01:34 Dextrose 5% 1,000 Ml IVPB PRN PRN Hypoglycemia Protocol Piperacillin Sod/Tazobactam Sod 2.25 gm in 50 mls @ 100 mls/hr 05/04/24 12:00 05/05/24 05:02 Zosyn 2.25 Gm/Ns 50 Ml IVPB 100 mls/hr Q6H JHOANA Administration Linezolid 600 mg in 300 mls @ 300 mls/hr 05/04/24 10:35 05/05/24 08:45 Zyvox IVPB 300 mls/hr Q12HR JHOANA Administration Insulin Aspart 3 - 6 units 05/05/24 06:30 05/05/24 08:53 Insulin Aspart (*Bkc) 100 Units/Ml SUB-Q 3 units AC JHOANA Administration Protocol Loratadine 10 mg 05/04/24 08:51 05/04/24 11:45 Loratadine 10 Mg Tablet PO 10 mg QAM PRN Administration itching Ondansetron HCl 4 mg 05/03/24 23:51 Ondansetron Inj 4 Mg/2 Ml Vial IV PUSH Q4H PRN Nausea Pantoprazole Sodium 40 mg 05/04/24 09:00 05/05/24 08:45 Pantoprazole Sodium Iv 40 Mg Vial IV PUSH 40 mg QAM JHOANA Administration Sodium Bicarbonate 650 mg 05/05/24 09:00 05/05/24 08:45 Sodium Bicarbonate Tab 650 Mg Tablet PO 05/07/24 08:59 650 mg BID JHOANA Administration Triamcinolone Acetonide 1 applic 05/04/24 09:00 05/05/24 08:45 Triamcinolone Acet 0.1% Cream 80 Gm Tube TOPICAL 1 applic BID JHOANA Administration Radiology Results: ITS Impressions Head CT 05/03/24 20:56 IMPRESSION: Acute infarct involving a portion of the right MCA territory. Results reported telephonically to Dr. Duong by Dr. Langford at 9:01 PM on 05/03/2024. Cervical Spine CT 05/03/24 21:01 IMPRESSION: No acute fracture or traumatic malalignment in the cervical spine. Abdomen/Pelvis CT 05/03/24 21:06 IMPRESSION: No acute abdominopelvic process detected. Foot X-Ray 05/04/24 07:08 IMPRESSION: 1. Soft tissue gas in the plantar aspect of the heel. No evidence of osteomyelitis. Carotid Doppler Study 05/04/24 14:15 IMPRESSION: 1. <50% stenosis in the right internal carotid artery. 2. <50% stenosis in the left internal carotid artery. Renal Ultrasound 05/04/24 14:16 IMPRESSION: No definite abnormality. Chest X-Ray 05/05/24 06:38 IMPRESSION: 1. Cardiomegaly and pulmonary vascular congestion without parish pulmonary edema. Labs Labs: Laboratory Results - last 24 hr 05/04/24 05/04/24 05/04/24 11:19 16:51 20:26 WBC RBC Hgb Hct MCV MCH MCHC RDW Plt Count MPV Immature Gran % (Auto) Neut % (Auto) Lymph % (Auto) [place] % (Auto) Eos % (Auto) Baso % (Auto) Lymph # (Auto) [place] # (Auto) Eos # (Auto) Baso # (Auto) Abs Immat Gran (auto) Absolute Neuts (auto) Absolute Nucleated RBC Nucleated RBC % Platelet Estimate Hypochromasia Poikilocytosis Anisocytosis [place] Cells Schistocytes PT INR APTT Sodium Potassium Chloride Carbon Dioxide Anion Gap BUN Creatinine Estim Creat Clear Calc Estimated GFR Glucose POC Capillary Glucose 196 H 164 H 193 H Lactic Acid Calcium Phosphorus Magnesium Total Bilirubin AST ALT Alkaline Phosphatase Total Creatine Kinase C-Reactive Protein Total Protein Albumin Hep Bs Antigen Hep Bs Antibody 05/05/24 05/05/24 04:13 08:33 WBC 20.3 H RBC 2.73 L Hgb 8.9 L Hct 27.1 L MCV 99.3 MCH 32.6 MCHC 32.8 RDW 14.0 Plt Count 325 MPV 10.1 Immature Gran % (Auto) 0.7 H Neut % (Auto) 90.0 H Lymph % (Auto) 3.5 L [place] % (Auto) 5.4 Eos % (Auto) 0.2 Baso % (Auto) 0.2 Lymph # (Auto) 0.71 L [place] # (Auto) 1.1 H Eos # (Auto) 0.0 Baso # (Auto) 0.0 Abs Immat Gran (auto) 0.14 H Absolute Neuts (auto) 18.3 H Absolute Nucleated RBC 0.060 H Nucleated RBC % 0.3 H Platelet Estimate Adequate Hypochromasia 1+ Poikilocytosis 1+ Anisocytosis 1+ [place] Cells 2+ Schistocytes None seen PT 19.0 H INR 1.6 APTT 40.5 H Sodium 139 Potassium 4.1 Chloride 106 Carbon Dioxide 18 L Anion Gap 15 H BUN 68 H D Creatinine 3.20 H Estim Creat Clear Calc 29 Estimated GFR 20 L Glucose 224 H POC Capillary Glucose 205 H Lactic Acid 1.1 Calcium 8.9 Phosphorus 4.1 Magnesium 1.9 Total Bilirubin 0.9 AST 56 ALT 44 Alkaline Phosphatase 122 Total Creatine Kinase 359 H C-Reactive Protein 18.7 H Total Protein 7.0 Albumin 3.4 L Hep Bs Antigen Negative Hep Bs Antibody Negative Quality VTE Prophylaxis VTE prophylaxis: mechanical ordered
--- NOTE | 2024-05-05 11:16 | WPDPN ---
Progress Note: A&P Assessment and Plan (1) Diabetic foot ulcers: Qualifiers: Diabetic foot ulcer location: heel Diabetes mellitus type: type 2 Laterality: unspecified laterality Non-pressure ulcer stage: unspecified non-pressure ulcer stage Qualified Code(s): E11.621 - Type 2 diabetes mellitus with foot ulcer; L97.409 - Non-pressure chronic ulcer of unspecified heel and midfoot with unspecified severity Code(s): E11.621 - Type 2 diabetes mellitus with foot ulcer; L97.509 - Non-pressure chronic ulcer of other part of unspecified foot with unspecified severity Status: Acute Assessment and Plan: Bilateral heel and right forefoot diabetic ulcers. Patient has draining a right forefoot abscess and a combination dry away gangrene of the heels. He will need to go to the operating for debridement of the nonviable tissue and opening of the right plantar surface abscess. Plan on doing that tomorrow. Patient be NPO after midnight. Subjective Date/time seen: 05/05/24 11:16 Interval history: Patient remains in the intensive care unit. He seems to be stabilizing. Blood count is now down to 20,000. He continues to have foul-smelling drainage for his bilateral heels and from the wound on his right forefoot. Continues on broad-spectrum IV antibiotics for the bilateral feet infection. Exam Skin: Other: Combination of dry and wet gangrene of the bilateral heels. The right forefoot with a ulcer and possible draining burrowing abscess. No ascending cellulitis coming up the legs. Objective Data Vital Signs Vital Signs: Vital Signs - 24 hr 05/04/24 12:00 05/04/24 12:00 05/04/24 12:00 Temperature 35.7 C L Pulse Rate 81 80 Respiratory Rate 25 H Blood Pressure 108/73 Pulse Oximetry 100 99 Oxygen Delivery Nasal Cannula Oxygen Flow Rate 1 Fraction of Inspired Oxygen 05/04/24 13:56 05/04/24 14:00 05/04/24 14:00 Temperature 36.1 C L Pulse Rate 80 80 Respiratory Rate 17 Blood Pressure 101/73 Pulse Oximetry 98 97 Oxygen Delivery Room Air Oxygen Flow Rate Fraction of Inspired Oxygen 05/04/24 16:00 05/04/24 16:00 05/04/24 16:00 Temperature 36.4 C L Pulse Rate 80 80 Respiratory Rate 21 H Blood Pressure 108/72 Pulse Oximetry 95 95 Oxygen Delivery Room Air Oxygen Flow Rate Fraction of Inspired Oxygen 05/04/24 18:00 05/04/24 18:00 05/04/24 20:00 Temperature 36.7 C Pulse Rate 80 80 Respiratory Rate 21 H Blood Pressure 104/66 Pulse Oximetry 95 Oxygen Delivery Room Air Oxygen Flow Rate Fraction of Inspired Oxygen 05/04/24 20:00 05/04/24 20:00 05/04/24 22:00 Temperature 37.6 C H Pulse Rate 80 80 80 Respiratory Rate 21 H Blood Pressure 123/98 H Pulse Oximetry 96 Oxygen Delivery Oxygen Flow Rate Fraction of Inspired Oxygen 05/04/24 22:00 05/05/24 00:00 05/05/24 00:00 Temperature Pulse Rate 80 80 Respiratory Rate 26 H Blood Pressure 123/98 H Pulse Oximetry 93 94 Oxygen Delivery Nasal Cannula Oxygen Flow Rate 2 Fraction of Inspired Oxygen 05/05/24 00:00 05/05/24 02:00 05/05/24 00:00 Temperature 37.8 C H Pulse Rate 80 80 Respiratory Rate 28 H 24 H Blood Pressure 118/74 119/73 Pulse Oximetry 95 94 94 Oxygen Delivery Nasal Cannula Oxygen Flow Rate 2 Fraction of Inspired Oxygen 05/05/24 04:00 05/05/24 04:00 05/05/24 04:00 Temperature 37.9 C H Pulse Rate 80 80 Respiratory Rate 29 H Blood Pressure 124/80 Pulse Oximetry 92 93 Oxygen Delivery Nasal Cannula Oxygen Flow Rate 2 Fraction of Inspired Oxygen 05/05/24 06:00 05/05/24 08:33 05/05/24 08:52 Temperature Pulse Rate 80 Respiratory Rate 23 H Blood Pressure 137/74 Pulse Oximetry 93 94 Oxygen Delivery Nasal Cannula Nasal Cannula Oxygen Flow Rate 2 2 Fraction of Inspired Oxygen 05/05/24 08:57 05/05/24 08:57 05/05/24 09:03 Temperature Pulse Rate 80 80 Respiratory Rate 24 H 20 Blood Pressure Pulse Oximetry 95 Oxygen Delivery Nasal Cannula Oxygen Flow Rate 2 Fraction of Inspired Oxygen 05/05/24 08:00 05/05/24 10:00 Temperature 37.9 C H 37.1 C Pulse Rate 80 80 Respiratory Rate 20 30 H Blood Pressure 176/46 H 119/74 Pulse Oximetry 98 94 Oxygen Delivery Oxygen Flow Rate Fraction of Inspired Oxygen Intake/Output Intake/Output: Intake & Output 05/02/24 05/03/24 05/04/2405/05/24 23:59 23:59 23:59 23:59 Intake Total 3750 2768.3 1390 Output Total 350 350 Balance 3750 2418.3 1040 Meds/Results Medications: Active Medications Generic Name Dose Route Start Last Admin Trade Name Freq PRN Reason Stop Dose Admin Acetaminophen 650 mg 05/03/24 23:51 Acetaminophen 650 Mg Suppository RECTAL Q6H PRN Mild Pain (1-3) or Fever Albuterol/Ipratropium 3 ml 05/04/24 01:39 Ipratropium 0.5 Mg/Albuterol Sulfate 2.5 Mg Ampul.Neb 3 Ml INHALATION Q6HRT PRN shortness of breath or wheezing Albuterol/Ipratropium 3 ml 05/05/24 08:40 05/05/24 08:57 Ipratropium 0.5 Mg/Albuterol Sulfate 2.5 Mg Ampul.Neb 3 Ml INHALATION 3 ml Q6HRT JHOANA Administration Aspirin 325 mg 05/05/24 09:00 05/05/24 08:45 Aspirin 325 Mg Tablet PO 325 mg DAILY@0800 JHOANA Administration Atorvastatin Calcium 40 mg 05/04/24 09:00 05/05/24 08:45 Atorvastatin 40 Mg Tablet PO 40 mg DAILY JHOANA Administration Dextrose 12.5 gm 05/04/24 01:34 Dextrose 50% 25 Gm/50 Ml Syringe IV PUSH PRN PRN Hypoglycemia Protocol Diphenhydramine HCl 12.5 mg 05/04/24 15:08 05/04/24 20:29 Diphenhydramine Hcl Elixir 12.5 Mg/5 Ml Udc PO 12.5 mg Q6H PRN Administration Itching Glucagon 1 mg 05/04/24 01:34 Glucagon For Inj 1 Mg Vial IM PRN PRN Hypoglycemia Protocol Glucose 15 gm 05/04/24 01:34 Glucose Oral Gel 15 Gm Of Glucse In 37.5 Gm Tube PO PRN PRN Hypoglycemia Protocol Guaifenesin/Dextromethorphan 10 ml 05/05/24 08:37 05/05/24 08:45 Guaifenesin/Dextromethorphan 10 Ml Udc PO 10 ml Q4H PRN Administration Cough Dextrose 1,000 mls @ 100 mls/hr 05/04/24 01:34 Dextrose 5% 1,000 Ml IVPB PRN PRN Hypoglycemia Protocol Piperacillin Sod/Tazobactam Sod 2.25 gm in 50 mls @ 100 mls/hr 05/04/24 12:00 05/05/24 05:02 Zosyn 2.25 Gm/Ns 50 Ml IVPB 100 mls/hr Q6H JHOANA Administration Linezolid 600 mg in 300 mls @ 300 mls/hr 05/04/24 10:35 05/05/24 08:45 Zyvox IVPB 300 mls/hr Q12HR JHOANA Administration Insulin Aspart 3 - 6 units 05/05/24 06:30 05/05/24 08:53 Insulin Aspart (*Bkc) 100 Units/Ml SUB-Q 3 units AC JHOANA Administration Protocol Loratadine 10 mg 05/04/24 08:51 05/04/24 11:45 Loratadine 10 Mg Tablet PO 10 mg QAM PRN Administration itching Ondansetron HCl 4 mg 05/03/24 23:51 Ondansetron Inj 4 Mg/2 Ml Vial IV PUSH Q4H PRN Nausea Pantoprazole Sodium 40 mg 05/04/24 09:00 05/05/24 08:45 Pantoprazole Sodium Iv 40 Mg Vial IV PUSH 40 mg QAM JHOANA Administration Sodium Bicarbonate 650 mg 05/05/24 09:00 05/05/24 08:45 Sodium Bicarbonate Tab 650 Mg Tablet PO 05/07/24 08:59 650 mg BID JHOANA Administration Triamcinolone Acetonide 1 applic 05/04/24 09:00 05/05/24 08:45 Triamcinolone Acet 0.1% Cream 80 Gm Tube TOPICAL 1 applic BID JHOANA Administration Radiology Results: ITS Impressions Head CT 05/03/24 20:56 IMPRESSION: Acute infarct involving a portion of the right MCA territory. Results reported telephonically to Dr. Duong by Dr. Langford at 9:01 PM on 05/03/2024. Cervical Spine CT 05/03/24 21:01 IMPRESSION: No acute fracture or traumatic malalignment in the cervical spine. Abdomen/Pelvis CT 05/03/24 21:06 IMPRESSION: No acute abdominopelvic process detected. Foot X-Ray 05/04/24 07:08 IMPRESSION: 1. Soft tissue gas in the plantar aspect of the heel. No evidence of osteomyelitis. Carotid Doppler Study 05/04/24 14:15 IMPRESSION: 1. <50% stenosis in the right internal carotid artery. 2. <50% stenosis in the left internal carotid artery. Renal Ultrasound 05/04/24 14:16 IMPRESSION: No definite abnormality. Chest X-Ray 05/05/24 06:38 IMPRESSION: 1. Cardiomegaly and pulmonary vascular congestion without parish pulmonary edema. Labs Labs: Laboratory Results - last 24 hr 05/04/24 05/04/24 05/04/24 11:19 16:51 20:26 WBC RBC Hgb Hct MCV MCH MCHC RDW Plt Count MPV Immature Gran % (Auto) Neut % (Auto) Lymph % (Auto) [place] % (Auto) Eos % (Auto) Baso % (Auto) Lymph # (Auto) [place] # (Auto) Eos # (Auto) Baso # (Auto) Abs Immat Gran (auto) Absolute Neuts (auto) Absolute Nucleated RBC Nucleated RBC % Platelet Estimate Hypochromasia Poikilocytosis Anisocytosis [place] Cells Schistocytes PT INR APTT Sodium Potassium Chloride Carbon Dioxide Anion Gap BUN Creatinine Estim Creat Clear Calc Estimated GFR Glucose POC Capillary Glucose 196 H 164 H 193 H Lactic Acid Calcium Phosphorus Magnesium Total Bilirubin AST ALT Alkaline Phosphatase Total Creatine Kinase C-Reactive Protein Total Protein Albumin Hep Bs Antigen Hep Bs Antibody 05/05/24 05/05/24 04:13 08:33 WBC 20.3 H RBC 2.73 L Hgb 8.9 L Hct 27.1 L MCV 99.3 MCH 32.6 MCHC 32.8 RDW 14.0 Plt Count 325 MPV 10.1 Immature Gran % (Auto) 0.7 H Neut % (Auto) 90.0 H Lymph % (Auto) 3.5 L [place] % (Auto) 5.4 Eos % (Auto) 0.2 Baso % (Auto) 0.2 Lymph # (Auto) 0.71 L [place] # (Auto) 1.1 H Eos # (Auto) 0.0 Baso # (Auto) 0.0 Abs Immat Gran (auto) 0.14 H Absolute Neuts (auto) 18.3 H Absolute Nucleated RBC 0.060 H Nucleated RBC % 0.3 H Platelet Estimate Adequate Hypochromasia 1+ Poikilocytosis 1+ Anisocytosis 1+ [place] Cells 2+ Schistocytes None seen PT 19.0 H INR 1.6 APTT 40.5 H Sodium 139 Potassium 4.1 Chloride 106 Carbon Dioxide 18 L Anion Gap 15 H BUN 68 H D Creatinine 3.20 H Estim Creat Clear Calc 29 Estimated GFR 20 L Glucose 224 H POC Capillary Glucose 205 H Lactic Acid 1.1 Calcium 8.9 Phosphorus 4.1 Magnesium 1.9 Total Bilirubin 0.9 AST 56 ALT 44 Alkaline Phosphatase 122 Total Creatine Kinase 359 H C-Reactive Protein 18.7 H Total Protein 7.0 Albumin 3.4 L Hep Bs Antigen Negative Hep Bs Antibody Negative
[2024-05-05 12:18] LABS: Glucose Point of Care 249 mg/dl (65-105)
--- NOTE | 2024-05-05 13:05 | PC.NURSE ---
Report given to Carmen RN at 1305. Patient to transfer to IMU room 202.
[2024-05-05] MEDS: SODIUM BICARBONATE 8.4% 100 MEQ in WATER, STERILE FOR INJECTION 1,000 ML 75 MEQ IV CONT (13:07)
--- NOTE | 2024-05-05 13:35 | ADMGEN ---
This patient, Joselito Lamar Jr., was admitted to IMU Room 202-01. Patient/family oriented to hospital policies and general routines including ID bracelet, bed and alarms, visiting hours, pain management, procedures, bathroom and other care routines, personal items, smoking policy, room service/diet, and visiting hours. Pt has phone and battery charger, aware of surgery tomorrow and npo after midnight status Information on how to activate the Rapid Response Team has been discussed. Patient/Family are encouraged to report perceived risks to care and to ask questions if they do not understand what they are told or what they should do.
--- NOTE | 2024-05-05 16:30 | P.PNNEUR_ITS ---
Progress Note: A&P Assessment and Plan (1) Right-sided cerebrovascular accident (CVA): Code(s): I63.9 - Cerebral infarction, unspecified Status: Acute (2) Parkinsons disease: Code(s): G20 - Parkinson's disease Status: Acute (3) Chronic atrial fibrillation: Code(s): I48.20 - Chronic atrial fibrillation, unspecified Status: Acute (4) Diabetic foot ulcer: Qualifiers: Diabetes mellitus type: type 2 Diabetic foot ulcer location: midfoot Laterality: right Non-pressure ulcer stage: with muscle involvement without evidence of necrosis Qualified Code(s): E11.621 - Type 2 diabetes mellitus with foot ulcer; L97.415 - Non-pressure chronic ulcer of right heel and midfoot with muscle involvement without evidence of necrosis Code(s): E11.621 - Type 2 diabetes mellitus with foot ulcer; L97.509 - Non-pressure chronic ulcer of other part of unspecified foot with unspecified severity Status: Acute (5) Hypertension: Code(s): I10 - Essential (primary) hypertension Status: Acute (6) Acute kidney injury: Code(s): N17.9 - Acute kidney failure, unspecified Status: Acute (7) Rhabdomyolysis: Qualifiers: Rhabdomyolysis type: non-traumatic Qualified Code(s): M62.82 - Rhabdomyolysis Code(s): M62.82 - Rhabdomyolysis Status: Acute (8) Leukocytosis: Code(s): D72.829 - Elevated white blood cell count, unspecified Status: Acute (9) Sepsis: Code(s): A41.9 - Sepsis, unspecified organism Status: Acute Plan The patient is atorvastatin 40 mg a day and aspirin 81 mg a day. He is supposed to be on anticoagulation on a chronic basis due to atrial fibrillation he states that medications for Parkinson disease made him sick and hence he is not on any medications. This of course may eventually require some attention. For now he will require attention to his renal condition, anemia, sepsis, left hemiplegia, diabetic foot ulcers. He has fatigue and tiredness are most likely due to concurrent multiple medical problems especially septicemia and a renal disease. These are being addressed by Internal Medicine and Nephrology. His foot ulcers are being addressed by surgeons. He will require physical therapy for the stroke leading to left hemiparesis. Neurology will follow. Last LDL was well under 65 and hence we can continue the atorvastatin at current doses. I have reviewed the previous CT scan on admission And agree with the findings. Carotid Doppler study shows less than 50% narrowing on both sides. Echocardiogram shows left ventricular hypertrophy and ejection fraction 40-45%. Subjective Date/time seen: 05/05/24 16:30 Interval history: Patient is 63-year-old with history of diabetes mellitus was found on the floor and admitted to the hospital. 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 He also has history of Parkinson's disease for which she is not on any medications. Patient is fully conscious and alert this by himself but he does have female who is the POA and she comes to check on him time to time. His children live away from him. He does complain of numbness in the left arm. His both feet are in bandage where he says that he has some sore spots. Patient is being taken care of by General surgery and nephrology and was in critical care and has been transferred to regular floor today. His current records were Reviewed. He was also found to evidence for rhabdomyolysis since he has fallen out of the couch onto the floor. It apparently there for 2 days before somebody found him. Review of Systems Review of Systems: If he is generally weak and lethargic pain Exam Narrative: fully conscious alert oriented to self time place and person. No aphasia or dysarthria. Examination head and neck shows no evidence of external trauma. No nuchal rigidity. Cranial nerves pupils were equal reacting to light. Visual mccullough were within normal range however he seems to have somewhat of a gaze preference to the right side. There is moderate left facial weakness of supranuclear type. Tongue did not show any deviation. Other cranials within normal limits. Motor system mild weakness of the left upper limb power grade 4/5 mild weakness of the left lower limb power grade 4 +over 5. Both feet were held in bandages from the lower leg down to his Distal foot. mild cogwheeling was noted in both upper limbs. Objective Data Vital Signs Vital Signs: Vital Signs - 24 hr 05/04/24 18:00 05/04/24 18:00 05/04/24 20:00 Temperature 98.0 F Pulse Rate 80 80 Respiratory Rate 21 H Blood Pressure 104/66 Pulse Oximetry 95 Oxygen Delivery Room Air Oxygen Flow Rate Fraction of Inspired Oxygen 05/04/24 20:00 05/04/24 20:00 05/04/24 22:00 Temperature 99.7 F H Pulse Rate 80 80 80 Respiratory Rate 21 H Blood Pressure 123/98 H Pulse Oximetry 96 Oxygen Delivery Oxygen Flow Rate Fraction of Inspired Oxygen 05/04/24 22:00 05/05/24 00:00 05/05/24 00:00 Temperature Pulse Rate 80 80 Respiratory Rate 26 H Blood Pressure 123/98 H Pulse Oximetry 93 94 Oxygen Delivery Nasal Cannula Oxygen Flow Rate 2 Fraction of Inspired Oxygen 05/05/24 00:00 05/05/24 02:00 05/05/24 00:00 Temperature 100.1 F H Pulse Rate 80 80 Respiratory Rate 28 H 24 H Blood Pressure 118/74 119/73 Pulse Oximetry 95 94 94 Oxygen Delivery Nasal Cannula Oxygen Flow Rate 2 Fraction of Inspired Oxygen 05/05/24 04:00 05/05/24 04:00 05/05/24 04:00 Temperature 100.2 F H Pulse Rate 80 80 Respiratory Rate 29 H Blood Pressure 124/80 Pulse Oximetry 92 93 Oxygen Delivery Nasal Cannula Oxygen Flow Rate 2 Fraction of Inspired Oxygen 05/05/24 06:00 05/05/24 08:33 05/05/24 08:52 Temperature Pulse Rate 80 Respiratory Rate 23 H Blood Pressure 137/74 Pulse Oximetry 93 94 Oxygen Delivery Nasal Cannula Nasal Cannula Oxygen Flow Rate 2 2 Fraction of Inspired Oxygen 05/05/24 08:57 05/05/24 08:57 05/05/24 09:03 Temperature Pulse Rate 80 80 Respiratory Rate 24 H 20 Blood Pressure Pulse Oximetry 95 Oxygen Delivery Nasal Cannula Oxygen Flow Rate 2 Fraction of Inspired Oxygen 05/05/24 08:00 05/05/24 10:00 05/05/24 12:00 Temperature 100.2 F H 98.8 F 99.7 F H Pulse Rate 80 80 80 Respiratory Rate 20 30 H 26 H Blood Pressure 176/46 H 119/74 128/77 Pulse Oximetry 98 94 92 Oxygen Delivery Oxygen Flow Rate Fraction of Inspired Oxygen 05/05/24 08:00 05/05/24 12:00 05/05/24 08:00 Temperature Pulse Rate 80 Respiratory Rate Blood Pressure Pulse Oximetry 92 97 Oxygen Delivery Nasal Cannula Room Air Oxygen Flow Rate 2 Fraction of Inspired Oxygen 05/05/24 10:00 05/05/24 12:00 05/05/24 14:00 Temperature Pulse Rate 80 80 80 Respiratory Rate Blood Pressure Pulse Oximetry Oxygen Delivery Oxygen Flow Rate Fraction of Inspired Oxygen 05/05/24 14:37 05/05/24 14:37 05/05/24 16:00 Temperature Pulse Rate 80 Respiratory Rate 16 Blood Pressure Pulse Oximetry 91 91 Oxygen Delivery Room Air Room Air Oxygen Flow Rate Fraction of Inspired Oxygen 21 05/05/24 16:00 Temperature Pulse Rate 80 Respiratory Rate Blood Pressure Pulse Oximetry Oxygen Delivery Oxygen Flow Rate Fraction of Inspired Oxygen Intake/Output Intake/Output: Intake & Output 05/02/24 05/03/24 05/04/24 05/05/24 23:59 23:59 23:59 23:59 Intake Total 3750 2768.3 2140 Output Total 350 650 Balance 3750 2418.3 1490 Meds/Results Medications: Active Medications Generic Name Dose Route Start Last Admin Trade Name Freq PRN Reason Stop Dose Admin Acetaminophen 650 mg 05/05/24 13:04 Acetaminophen 325 Mg Tablet PO Q6H PRN Mild Pain (1-3) or Fever Albuterol/Ipratropium 3 ml 05/04/24 01:39 Ipratropium 0.5 Mg/Albuterol Sulfate 2.5 Mg Ampul.Neb 3 Ml INHALATION Q6HRT PRN shortness of breath or wheezing Albuterol/Ipratropium 3 ml 05/05/24 08:40 05/05/24 14:37 Ipratropium 0.5 Mg/Albuterol Sulfate 2.5 Mg Ampul.Neb 3 Ml INHALATION 3 ml Q6HRT JHOANA Administration Aspirin 325 mg 05/05/24 09:00 05/05/24 08:45 Aspirin 325 Mg Tablet PO 325 mg DAILY@0800 JHOANA Administration Atorvastatin Calcium 40 mg 05/04/24 09:00 05/05/24 08:45 Atorvastatin 40 Mg Tablet PO 40 mg DAILY JHOANA Administration Dextrose 12.5 gm 05/04/24 01:34 Dextrose 50% 25 Gm/50 Ml Syringe IV PUSH PRN PRN Hypoglycemia Protocol Diphenhydramine HCl 12.5 mg 05/04/24 15:08 05/04/24 20:29 Diphenhydramine Hcl Elixir 12.5 Mg/5 Ml Udc PO 12.5 mg Q6H PRN Administration Itching Glucagon 1 mg 05/04/24 01:34 Glucagon For Inj 1 Mg Vial IM PRN PRN Hypoglycemia Protocol Glucose 15 gm 05/04/24 01:34 Glucose Oral Gel 15 Gm Of Glucse In 37.5 Gm Tube PO PRN PRN Hypoglycemia Protocol Guaifenesin/Dextromethorphan 10 ml 05/05/24 08:37 05/05/24 14:35 Guaifenesin/Dextromethorphan 10 Ml Udc PO 10 ml Q4H PRN Administration Cough Dextrose 1,000 mls @ 100 mls/hr 05/04/24 01:34 Dextrose 5% 1,000 Ml IVPB PRN PRN Hypoglycemia Protocol Piperacillin Sod/Tazobactam Sod 2.25 gm in 50 mls @ 100 mls/hr 05/04/24 12:00 05/05/24 13:08 Zosyn 2.25 Gm/Ns 50 Ml IVPB Infused Q6H JHOANA Infusion Linezolid 600 mg in 300 mls @ 300 mls/hr 05/04/24 10:35 05/05/24 09:45 Zyvox IVPB Infused Q12HR JHOANA Infusion Sodium Bicarbonate 100 meq/ 1,100 mls @ 75 mls/hr 05/05/24 12:10 05/05/24 1 3:07 Sterile Water IV CONT 05/06/24 08:09 75 mls/hr .[id number] JHOANA Administration Insulin Aspart 3 - 6 units 05/05/24 06:30 05/05/24 12:38 Insulin Aspart (*Bkc) 100 Units/Ml SUB-Q 3 units AC JHOANA Administration Protocol Loratadine 10 mg 05/04/24 08:51 05/04/24 11:45 Loratadine 10 Mg Tablet PO 10 mg QAM PRN Administration itching Ondansetron HCl 4 mg 05/03/24 23:51 Ondansetron Inj 4 Mg/2 Ml Vial IV PUSH Q4H PRN Nausea Pantoprazole Sodium 40 mg 05/04/24 09:00 05/05/24 08:45 Pantoprazole Sodium Iv 40 Mg Vial IV PUSH 40 mg QAM JHOANA Administration Sodium Bicarbonate 650 mg 05/05/24 09:00 05/05/24 08:45 Sodium Bicarbonate Tab 650 Mg Tablet PO 05/07/24 08:59 650 mg BID JHOANA Administration Triamcinolone Acetonide 1 applic 05/04/24 09:00 05/05/24 08:45 Triamcinolone Acet 0.1% Cream 80 Gm Tube TOPICAL 1 applic BID JHOANA Administration Radiology Results: ITS Impressions Head CT 05/03/24 20:56 IMPRESSION: Acute infarct involving a portion of the right MCA territory. Results reported telephonically to Dr. Duong by Dr. Langford at 9:01 PM on 05/03/2024. Cervical Spine CT 05/03/24 21:01 IMPRESSION: No acute fracture or traumatic malalignment in the cervical spine. Abdomen/Pelvis CT 05/03/24 21:06 IMPRESSION: No acute abdominopelvic process detected. Foot X-Ray 05/04/24 07:08 IMPRESSION: 1. Soft tissue gas in the plantar aspect of the heel. No evidence of osteomyelitis. Carotid Doppler Study 05/04/24 14:15 IMPRESSION: 1. <50% stenosis in the right internal carotid artery. 2. <50% stenosis in the left internal carotid artery. Renal Ultrasound 05/04/24 14:16 IMPRESSION: No definite abnormality. Chest X-Ray 05/05/24 06:38 IMPRESSION: 1. Cardiomegaly and pulmonary vascular congestion without parish pulmonary edema. Labs Labs: Laboratory Results - last 24 hr 05/04/24 05/04/24 05/05/24 16:51 20:26 04:13 WBC 20.3 H RBC 2.73 L Hgb 8.9 L Hct 27.1 L MCV 99.3 MCH 32.6 MCHC 32.8 RDW 14.0 Plt Count 325 MPV 10.1 Immature Gran % (Auto) 0.7 H Neut % (Auto) 90.0 H Lymph % (Auto) 3.5 L [place] % (Auto) 5.4 Eos % (Auto) 0.2 Baso % (Auto) 0.2 Lymph # (Auto) 0.71 L [place] # (Auto) 1.1 H Eos # (Auto) 0.0 Baso # (Auto) 0.0 Abs Immat Gran (auto) 0.14 H Absolute Neuts (auto) 18.3 H Absolute Nucleated RBC 0.060 H Nucleated RBC % 0.3 H Platelet Estimate Adequate Hypochromasia 1+ Poikilocytosis 1+ Anisocytosis 1+ [place] Cells 2+ Schistocytes None seen PT 19.0 H INR 1.6 APTT 40.5 H Sodium 139 Potassium 4.1 Chloride 106 Carbon Dioxide 18 L Anion Gap 15 H BUN 68 H D Creatinine 3.20 H Estim Creat Clear Calc 29 Estimated GFR 20 L Glucose 224 H POC Capillary Glucose 164 H 193 H Lactic Acid 1.1 Calcium 8.9 Phosphorus 4.1 Magnesium 1.9 Total Bilirubin 0.9 AST 56 ALT 44 Alkaline Phosphatase 122 Total Creatine Kinase 359 H C-Reactive Protein 18.7 H Total Protein 7.0 Albumin 3.4 L Hep Bs Antigen Negative Hep Bs Antibody Negative 05/05/24 05/05/24 08:33 12:14 WBC RBC Hgb Hct MCV MCH MCHC RDW Plt Count MPV Immature Gran % (Auto) Neut % (Auto) Lymph % (Auto) [place] % (Auto) Eos % (Auto) Baso % (Auto) Lymph # (Auto) [place] # (Auto) Eos # (Auto) Baso # (Auto) Abs Immat Gran (auto) Absolute Neuts (auto) Absolute Nucleated RBC Nucleated RBC % Platelet Estimate Hypochromasia Poikilocytosis Anisocytosis [place] Cells Schistocytes PT INR APTT Sodium Potassium Chloride Carbon Dioxide Anion Gap BUN Creatinine Estim Creat Clear Calc Estimated GFR Glucose POC Capillary Glucose 205 H 249 H Lactic Acid Calcium Phosphorus Magnesium Total Bilirubin AST ALT Alkaline Phosphatase Total Creatine Kinase C-Reactive Protein Total Protein Albumin Hep Bs Antigen Hep Bs Antibody
[2024-05-05 18:03] LABS: Glucose Point of Care 240 mg/dl (65-105)
[2024-05-05 22:09] LABS: Glucose Point of Care 210 mg/dl (65-105)
[2024-05-05] MEDS: diphenhydrAMINE HCL ELIXIR 12.5 MG/5 ML UDC PO (22:13)
[2024-05-06] VITALS (35 sets, daily range): BP systolic 111–130; BP diastolic 62–86; PULSE 78–98; RESP 14–24; TEMP 36.2–36.5; O2SAT 94–100
[2024-05-06] MEDS: PIPERACILLIN/TAZ 2.25G/NS 50ML 2.25 GM/50 ML BAG IVPB ×4 (01:15→17:40)
[2024-05-06] MEDS: IPRATROPIUM 0.5 MG/ALBUTEROL SULFATE 2.5 MG AMPUL.NEB 3 ML INHALATION ×4 (02:25→19:56)
[2024-05-06] MEDS: SODIUM BICARBONATE 8.4% 100 MEQ in WATER, STERILE FOR INJECTION 1,000 ML 75 MEQ IV CONT (03:54)
[2024-05-06 05:04] LABS: Basophils Percent Auto 0.2 % (0.2-1.2); Eosinophils Absolute Auto 0.1 K/mm3 (0-0.3); Eosinophils Percent Auto 0.5 % (0-4.4); Hematocrit 25.5 % (42.0-52.0); Hemoglobin 8.5 g/dL (14.0-18.0); Immature Granulocyte Absolute 0.21 K/mm3 (0.00-0.031); Lymphocytes Absolute Auto 0.97 K/mm3 (0.9-3.2); Lymphocytes Percent Auto 4.8 % (18.3-44.2); Mean Corpuscular HGB Conc 33.3 g/dl (32-36); Mean Corpuscular Hemoglobin 32.7 pg (26-34); Mean Corpuscular Volume 98.1 fl (80-100); Monocytes Percent Auto 5.1 % (2.6-8.5); Neutrophils Percent Auto 88.4 % (45.5-73.1); Nucleated Red Blood Cells Perc 0.1 % (0.0-0.2); Platelet Count Result 317 k/mm3 (150-375); White Blood Count 20.3 K/mm3 (4.5-10.0)
[2024-05-06 05:21] LABS: Alanine Aminotransferase 39 U/L (6-50); Albumin Level 2.9 g/dL (3.5-5.1); Alkaline Phosphatase 172 U/L (38-126); Anion Gap 9 mmol/L (4-12); Aspartate Amino Transferase 49 U/L (17-59); Bilirubin,Total 1.1 mg/dL (0.2-1.3); Blood Urea Nitrogen 63 mg/dL (9-20); Calcium 8.5 mg/dL (8.4-10.2); Carbon Dioxide 23 mmol/L (22-30); Chloride 103 mmol/L (98-107); Estimated CRCL calculation 34 ml/min; Estimated Glomerular Filt Rate 23; Glucose 265 mg/dL (65-110); Magnesium 1.9 mg/dL (1.6-2.3); Phosphorus 3.6 mg/dL (2.5-4.5); Potassium 3.5 mmol/L (3.4-5.0); Sodium 135 mmol/L (137-145)
[2024-05-06 05:23] LABS: Hypochromasia 1+; Ovalocytes 1+; Platelet Estimate Adequate (Adequate); Schistocytes None Seen
--- NOTE | 2024-05-06 07:28 | P.PNAN_ITS ---
Anes - Initial Pre Proc Eval Procedure: Operation Date: 05/06/24 07:30 Proposed Procedures p I&D Debride Lower Extremity(Bilateral) - Dionicio Ta MD Date/Time: 05/06/24 07:28 Surgeon: Chantell James DO Pre Op Diagnosis: Sepsis, Altered mental status, Acute kidney injury Patient Data Age: 63 Gender: M Height: 1.84 m Weight: 130 kg Last Vital Signs Temp 36.3 C L 05/06/24 03:54 Pulse 80 05/06/24 07:26 Resp 24 H 05/06/24 07:26 BP 121/73 05/06/24 03:54 Pulse Ox 94 05/06/24 07:20 O2 Del Method Nasal Cannula 05/06/24 07:20 O2 Flow Rate 2 05/06/24 07:20 FiO2 28 05/06/24 07:20 Allergies Allergy/AdvReac Type Severity Reaction Status Date / Time No Known Allergies Allergy Verified 02/26/24 08:13 Home Medications Medication Instructions Recorded Confirmed Type atorvastatin 20 mg tablet 20 mg PO DAILY 10/04/20 05/04/24 History diltiazem HCl 90 mg tablet 90 mg PO BID 07/17/22 05/04/24 History rivaroxaban 20 mg tablet (Xarelto) 20 mg PO DAILY 07/17/22 05/04/24 History metformin 1,000 mg tablet 1,000 mg PO BID #180 tabs 06/29/23 05/04/24 Rx valsartan 320 mg tablet 320 mg PO DAILY #90 tabs 06/29/23 05/04/24 Rx folic acid 1 mg tablet 1 mg PO DAILY #90 tabs 07/07/23 05/04/24 Rx furosemide 40 mg tablet 40 mg PO DAILY #30 tabs 08/27/23 05/04/24 Rx montelukast 10 mg tablet 10 mg PO HS #30 tabs 08/27/23 05/04/24 Rx cetirizine 10 mg tablet 10 mg PO DAILY #90 tabs 10/26/23 05/04/24 Rx albuterol sulfate 90 mcg/actuation 1 puff inhalation Q4H PRN 12/09/23 05/04/24 Rx aerosol inhaler shortness of breath or wheezing #25.5 grams triamcinolone acetonide 0.1 % 1 applic topical BID #454 grams 12/09/23 05/04/24 Rx topical cream carvedilol 25 mg tablet 50 mg PO Q12H #360 tabs 02/23/24 05/04/24 Rx ipratropium 0.5 mg-albuterol 3 mg 3 ml inhalation QID PRN shortness 02/23/24 05/04/24 Rx (2.5 mg base)/3 mL nebulization of breath or wheezing #360 mL soln potassium chloride 20 mEq 20 meq PO DAILY #90 tabs 02/23/24 05/04/24 Rx tablet,extended release(part/cryst) doxycycline hyclate 100 mg tablet 100 mg PO DAILY #20 tabs 02/26/24 05/04/24 Rx tamsulosin 0.4 mg capsule 0.4 mg PO QHS #90 caps 03/03/24 05/04/24 Rx allopurinol 100 mg tablet 200 mg PO DAILY #180 tabs 04/26/24 05/04/24 Rx Laboratory Tests 05/05/24 05/05/24 05/05/24 08:33 12:14 17:07 WBC RBC Hgb Hct MCV MCH MCHC RDW Plt Count MPV Immature Gran % (Auto) Neut % (Auto) Lymph % (Auto) Taylor % (Auto) Eos % (Auto) Baso % (Auto) Lymph # (Auto) Taylor # (Auto) Eos # (Auto) Baso # (Auto) Abs Immat Gran (auto) Absolute Neuts (auto) Absolute Nucleated RBC Nucleated RBC % Platelet Estimate Hypochromasia Ovalocytes Schistocytes Sodium Potassium Chloride Carbon Dioxide Anion Gap BUN Creatinine Estim Creat Clear Calc Estimated GFR Glucose POC Capillary Glucose 205 H mg/dl 249 H mg/dl 240 H mg/dl (65-105) (65-105) (65-105) Calcium Phosphorus Magnesium Total Bilirubin AST ALT Alkaline Phosphatase Total Protein Albumin 05/05/24 05/06/24 21:53 04:13 WBC 20.3 H K/mm3 (4.5-10.0) RBC 2.60 L M/mm3 (4.6-6.20) Hgb 8.5 L g/dL (14.0-18.0) Hct 25.5 L % (42.0-52.0) MCV 98.1 fl (80-100) MCH 32.7 pg (26-34) MCHC 33.3 g/dl (32-36) RDW 14.0 % (11.5-14.5) Plt Count 317 k/mm3 (150-375) MPV 11.0 H fl (7.4-10.4) Immature Gran % (Auto) 1.0 H % (0-0.5) Neut % (Auto) 88.4 H % (45.5-73.1) Lymph % (Auto) 4.8 L % (18.3-44.2) Taylor % (Auto) 5.1 % (2.6-8.5) Eos % (Auto) 0.5 % (0-4.4) Baso % (Auto) 0.2 % (0.2-1.2) Lymph # (Auto) 0.97 K/mm3 (0.9-3.2) Taylor # (Auto) 1.0 H K/mm3 (0.1-0.6) Eos # (Auto) 0.1 K/mm3 (0-0.3) Baso # (Auto) 0.0 K/mm3 (0.0-0.1) Abs Immat Gran (auto) 0.21 H K/mm3 (0.00-0.031) Absolute Neuts (auto) 18.0 H K/mm3 (1.3-6.7) Absolute Nucleated RBC 0.020 H K/mm3 (0.0-0.012) Nucleated RBC % 0.1 % (0.0-0.2) Platelet Estimate Adequate (Adequate) Hypochromasia 1+ Ovalocytes 1+ Schistocytes None seen Sodium 135 L mmol/L (137-145) Potassium 3.5 mmol/L (3.4-5.0) Chloride 103 mmol/L (98-107) Carbon Dioxide 23 mmol/L (22-30) Anion Gap 9 mmol/L (4-12) BUN 63 H mg/dL (9-20) Creatinine 2.80 H mg/dL (0.7-1.3) Estim Creat Clear Calc 34 ml/min Estimated GFR 23 L (59 - ) Glucose 265 H mg/dL (65-110) POC Capillary Glucose 210 H mg/dl (65-105) Calcium 8.5 mg/dL (8.4-10.2) Phosphorus 3.6 mg/dL (2.5-4.5) Magnesium 1.9 mg/dL (1.6-2.3) Total Bilirubin 1.1 mg/dL (0.2-1.3) AST 49 U/L (17-59) ALT 39 U/L (6-50) Alkaline Phosphatase 172 H U/L (38-126) Total Protein 7.0 g/dL (6.3-8.2) Albumin 2.9 L g/dL (3.5-5.1) Patient hx anesthesia problems: none Family hx anesthesia problems: none Results Review: All pre-operative results and documents have been reviewed as part of the pre- operative evaluation. [facility] Past Medical History Medical History Anxiety Asthma Bilateral cataracts Maturing BPH loc w urin obs/LUTS Cellulitis of right lower extremity Chronic atrial fibrillation Coronary artery disease involving [place] heart without angina pectoris Depression Diabetic foot ulcer Diabetic peripheral neuropathy Dyslipidemia Essential hypertension Folate deficiency Gout Hyperlipidemia Kidney stones Parkinsons disease Right-sided cerebrovascular accident (CVA) Seasonal allergies Stasis dermatitis Type 2 diabetes mellitus Uncontrolled hypertension Surgical History Surgical History History of bilateral carpal tunnel release History of heart artery stent (~2008) History of permanent cardiac pacemaker placement (~2015) [place] Hx of tonsillectomy S/P cubital tunnel release Family History Family History Mother Family history of blood dyscrasia Grandparent Alcoholism Social History Social History Social History: He is and lives alone. He has 4 children 1 of which in a motor vehicle collision. He used to work for a [employer] company but is now on disability. He smokes about 10 cigarettes a day and has smoked since his early 20s. He reports he quit smoking March 2024. He denies any significant alcohol use. Code status: DNR/DNI (per patient request) Surrogate decision maker: Enedelia Villalpando (friend) Smoking packs per day: 0.5 Smoking cigarettes per day: 10.0 Years smoked: 25 Smoking pack-years: 12.50 Smoking status: Former smoker Second hand tobacco smoke exposure: No Alcohol intake: current Alcohol use details: Occasionally Substance use: never Substance use type: does not use Do You Feel Safe in your Home?: Yes Lack of Transportation: No Lack of Food: Never True Current Housing: I Have Housing Concerned About Future Housing: No Difficulty Paying Gas/Electric Bills: YES Difficulty Paying for Meds: No Currently Unemployed: No Education: High School Diploma/GED Difficulty w/ Childcare or Family Care: No Spiritual care concerns: No Anes - Eval Final PreProcedure Day of Procedure 05/06/24 07:28 Patient weight: obese Heart: regular rate and rhythm (paced) Lungs: clear to auscultation Airway: Mallampati scale class III Neurological: alert and oriented Last oral intake: >/= 8 hours ASA classification: IV Emergent: no Anesthetic plan: proceed Anesthesia type and monitoring: general GIVS and standard monitoring Results Review: All pre-operative results and documents have been reviewed as part of the pre- operative evaluation. Informed Consent: The patient's anesthetic plan and its attendant risks and benefits were discussed with the patient/family/POA. Questions were solicited and answers provided to the satisfaction of the patient/family/POA.
[2024-05-06 08:18] LABS: Glucose Point of Care 254 mg/dl (65-105)
--- NOTE | 2024-05-06 08:45 | PCOTNOTE ---
Patient out of the room this A.M. Per RN, Patient went down to surgery for a foot debridement.
[2024-05-06] MEDS: LACTATED RINGERS 1,000 ML 30 ML IV CONT (08:57)
[2024-05-06 09:01] LABS: Glucose Point of Care 237 mg/dl (65-105)
--- NOTE | 2024-05-06 09:06 | WPDHPUPDATE1 ---
History and Physical Update Update Date/Time: 05/06/24 09:06 History and Physical has been reviewed, including an updated exam of the patient. There are NO changes in the patient's condition. Risks, benefits, and alternatives have been discussed and questions answered. Patient agrees to proceed with procedure.
--- NOTE | 2024-05-06 09:26 | PM.OP ---
Procedure Note - Brief Procedure Note - Brief Date of procedure: 05/06/24 Sepsis, Altered mental status, Acute kidney injury, bilateral diabetic heel ulcers and right forefoot ulcer with abscess and cellulitis Post-op diagnosis: Same Procedure performed: Extensive excisional debridement with sharp scalpel dissection of skin, subcutaneous tissue, fascia, and periosteum bilateral heels and right forefoot. Surgeon: Dionicio Ta MD Anesthesia: MAC Findings: Extensive necrosis of soft tissue and abscess formation of the bilateral heels and right plantar forefoot. Debridement of soft tissue all the way down to the periosteum of the bilateral heels and the right forefoot at the 1st MTP joint Estimated blood loss (mL): 100 Urine output (mL): 150 Drains: No Packing: Yes (Quarter strength Dakin solution moist to dry bilateral feet) Pathology: Other (Abscess swab culture sent to microbiology) Complications: No immediate complications Condition: Stable Disposition: PACU
[2024-05-06] MEDS: diphenhydrAMINE HCl INJ 50 MG/ML VIAL 12.5 MG IV PUSH (09:39)
--- NOTE | 2024-05-06 10:17 | P.PNNP_ITS ---
Progress Note: A&P Assessment and Plan (1) Acute kidney injury: Code(s): N17.9 - Acute kidney failure, unspecified Status: Acute Assessment and Plan: * slow improvement * as noted by admission labs -- creatinine 3.40mg/dl * suspect multifactorial etiology * hypotension/hemodynamic instability on admission * sepsis/infection (bacteremia) * rhabdomyolysis * element of disease progression (?) * s/p IVF resuscitation along with bicarb fluids * evaluation to date noted: * CT scan of the abdomen/pelvis did not show any hydronephrosis * renal ultrasound normal * urine electrolytes prerenal * urine eosinophils negative * CPK mildly elevated - follow trend * UA with 2+ protein and 1+ blood * follow trend of repeat labs and UOP (2) Stage 3a chronic kidney disease: Code(s): N18.31 - Chronic kidney disease, stage 3a Status: Chronic Assessment and Plan: * creatinine running ~ 1.3 - 1.4mg/dl (although last labs are from 2020) * presumably secondary to hypertension, diabetes, and vascular disease * cannot discount an element of CKD progression (since last labs available are from 3 years ago....) (3) Sepsis: Code(s): A41.9 - Sepsis, unspecified organism Status: Acute Assessment and Plan: * as noted on presentation with AMS, high fevers, lactic acidosis, and tachycardia * s/p aggressive IVF resuscitation * bicarb IVFs for acidosis * follow culture data * GPC noted on 05/03 blood cultures * follow repeat cultures * on antibiotics * never needed vasopressor therapy * follow trend of hemodynamics (4) Acute CVA (cerebrovascular accident): Code(s): I63.9 - Cerebral infarction, unspecified Status: Acute Assessment and Plan: * presentation with AMS as well as facial droop + weakness * admission head CT showed acute infarct involving a portion of the right MCA t erritory * not a candidate for tPA as unclear when he was last at baseline * found on the floor - unclear duration as well * Neurology following (5) Diabetic foot ulcer: Qualifiers: Diabetes mellitus type: type 2 Diabetic foot ulcer location: midfoot Laterality: right Non-pressure ulcer stage: with muscle involvement without evidence of necrosis Qualified Code(s): E11.621 - Type 2 diabetes mellitus with foot ulcer; L97.415 - Non-pressure chronic ulcer of right heel and midfoot with muscle involvement without evidence of necrosis Code(s): E11.621 - Type 2 diabetes mellitus with foot ulcer; L97.509 - Non-pressure chronic ulcer of other part of unspecified foot with unspecified severity Status: Acute Assessment and Plan: * extensive LE wounds on feet and heels * left foot x-ray showed no evidence of osteomyelitis * right foot x-ray showed soft tissue gas in the plantar aspect of the heel, no evidence of osteomyelitis * Surgery following * s/p debridement in OR today (05/06) (6) Hypertension: Code(s): I10 - Essential (primary) hypertension Status: Acute Assessment and Plan: * known history * BP medications were on hold due to sepsis and hypotension on admission * BP appears to be creeping up to baseline * resume home medications (excluding ARB and diuretics) slowly * follow trend of hemodynamics (7) Type 2 diabetes mellitus: Code(s): E11.9 - Type 2 diabetes mellitus without complications Status: Acute Assessment and Plan: * follow accu-cheks * glycemic control per pedicab driver/hospitalist Will continue to follow. Subjective Date/time seen: 05/06/24 10:17 Interval history: Follow-up for acute kidney injury/acute renal failure on chronic kidney disease. Status post incision & debridement of bilateral diabetic foot wounds earlier today and tolerated this interventions reasonably well; no apparent distress voiced at the time of my visit but appears sleepy post procedure; renal function/creatinine slowly improving with reasonable urine output noted; no issues/events overnight or earlier this morning. Exam Narrative: General: WD/WN male in NAD Heart: normal S1 and S2; no rub Lungs: clear anteriorly Abdomen: soft, nontender, nondistended, positive bowel sounds Extremities: no cyanosis or clubbing; 1+ edema Skin: dressings in place over bilateral feet/LEs Objective Data Vital Signs Vital Signs: Vital Signs Temp Pulse Resp BP Pulse Ox O2 Del Method O2 Flow Rate 05/06/24 09:51 80 20 115/75 95 Nasal Cannula 2 05/06/24 09:45 80 20 118/81 95 Nasal Cannula 2 05/06/24 09:30 80 20 130/62 97 Nasal Cannula 2 05/06/24 09:15 80 20 130/86 99 Nasal Cannula 2 05/06/24 09:00 82 18 122/82 100 Simple Face Mask 10 05/06/24 08:57 97.2 F L 80 15 120/71 100 Simple Face Mask 10 05/06/24 07:26 80 24 H 05/06/24 07:20 94 Nasal Cannula 2 05/06/24 07:19 79 24 H 05/06/24 05:44 80 05/06/24 04:00 80 05/06/24 04:00 80 20 98 Nasal Cannula 2 05/06/24 03:54 97.4 F L 80 20 121/73 98 05/06/24 02:31 80 18 05/06/24 02:28 80 94 Nasal Cannula 2 05/06/24 02:25 80 20 05/06/24 02:00 80 05/06/24 00:00 80 05/05/24 22:00 80 05/05/24 20:00 80 05/06/24 00:00 80 14 96 Nasal Cannula 2 05/05/24 20:00 80 18 92 Room Air 05/05/24 23:10 98.1 F 80 14 130/77 96 05/05/24 20:25 80 20 05/05/24 20:05 80 91 Room Air 05/05/24 20:05 80 18 05/05/24 19:29 98.5 F 80 18 138/98 H 92 05/05/24 18:00 80 05/05/24 16:00 98.1 F 80 18 116/60 94 05/05/24 16:00 80 05/05/24 16:00 91 Room Air Intake/Output Intake/Output: Intake & Output 05/03/24 05/04/24 05/05/24 05/06/24 23:59 23:59 23:59 23:59 Intake Total 3750 2768.3 3790 1475 Output Total 350 800 800 Balance 3750 2418.3 2990 675 Meds/Results Medications: Active Medications Generic Name Dose Route Start Last Admin Trade Name Freq PRN Reason Stop Dose Admin Acetaminophen 650 mg 05/05/24 13:04 Acetaminophen 325 Mg Tablet PO Q6H PRN Mild Pain (1-3) or Fever Albuterol/Ipratropium 3 ml 05/04/24 01:39 Ipratropium 0.5 Mg/Albuterol Sulfate 2.5 Mg Ampul.Neb 3 Ml INHALATION Q6HRT PRN shortness of breath or wheezing Albuterol/Ipratropium 3 ml 05/05/24 08:40 05/06/24 14:31 Ipratropium 0.5 Mg/Albuterol Sulfate 2.5 Mg Ampul.Neb 3 Ml INHALATION 3 ml Q6HRT JHOANA Administration Aspirin 325 mg 05/05/24 09:00 05/06/24 10:54 Aspirin 325 Mg Tablet PO 325 mg DAILY@0800 JHOANA Administration Atorvastatin Calcium 40 mg 05/04/24 09:00 05/06/24 10:54 Atorvastatin 40 Mg Tablet PO 40 mg DAILY JHOANA Administration Dextrose 12.5 gm 05/04/24 01:34 Dextrose 50% 25 Gm/50 Ml Syringe IV PUSH PRN PRN Hypoglycemia Protocol Diphenhydramine HCl 12.5 mg 05/04/24 15:08 05/05/24 22:13 Diphenhydramine Hcl Elixir 12.5 Mg/5 Ml Udc PO 12.5 mg Q6H PRN Administration Itching Glucagon 1 mg 05/04/24 01:34 Glucagon For Inj 1 Mg Vial IM PRN PRN Hypoglycemia Protocol Glucose 15 gm 05/04/24 01:34 Glucose Oral Gel 15 Gm Of Glucse In 37.5 Gm Tube PO PRN PRN Hypoglycemia Protocol Guaifenesin/Dextromethorphan 10 ml 05/05/24 08:37 05/05/24 21:56 Guaifenesin/Dextromethorphan 10 Ml Udc PO 10 ml Q4H PRN Administration Cough Dextrose 1,000 mls @ 100 mls/hr 05/04/24 01:34 Dextrose 5% 1,000 Ml IVPB PRN PRN Hypoglycemia Protocol Piperacillin Sod/Tazobactam Sod 2.25 gm in 50 mls @ 100 mls/hr 05/04/24 12:00 05/06/24 12:37 Zosyn 2.25 Gm/Ns 50 Ml IVPB 100 mls/hr Q6H JHOANA Administration Linezolid 600 mg in 300 mls @ 300 mls/hr 05/04/24 10:35 05/06/24 10:54 Zyvox IVPB 300 mls/hr Q12HR JHOANA Administration Insulin Aspart 3 - 6 units 05/05/24 06:30 05/06/24 12:36 Insulin Aspart (*Bkc) 100 Units/Ml SUB-Q 4 units AC JHOANA Administration Protocol Loratadine 10 mg 05/04/24 08:51 05/04/24 11:45 Loratadine 10 Mg Tablet PO 10 mg QAM PRN Administration itching Ondansetron HCl 4 mg 05/03/24 23:51 Ondansetron Inj 4 Mg/2 Ml Vial IV PUSH Q4H PRN Nausea Pantoprazole Sodium 40 mg 05/04/24 09:00 05/06/24 10:54 Pantoprazole Sodium Iv 40 Mg Vial IV PUSH 40 mg QAM JHOANA Administration Sodium Bicarbonate 650 mg 05/05/24 09:00 05/06/24 10:54 Sodium Bicarbonate Tab 650 Mg Tablet PO 05/07/24 08:59 650 mg BID JHOANA Administration Sodium Hypochlorite 1 applic 05/06/24 09:00 Sod Hypochlorite 1/4 Strength 473 Ml TOPICAL Q12HR JHOANA Triamcinolone Acetonide 1 applic 05/04/24 09:00 05/06/24 10:55 Triamcinolone Acet 0.1% Cream 80 Gm Tube TOPICAL 1 applic BID JHOANA Administration Radiology Results: ITS Impressions Head CT 05/03/24 20:56 IMPRESSION: Acute infarct involving a portion of the right MCA territory. Results reported telephonically to Dr. Duong by Dr. Langford at 9:01 PM on 05/03/2024. Cervical Spine CT 05/03/24 21:01 IMPRESSION: No acute fracture or traumatic malalignment in the cervical spine. Abdomen/Pelvis CT 05/03/24 21:06 IMPRESSION: No acute abdominopelvic process detected. Foot X-Ray 05/04/24 07:08 IMPRESSION: 1. Soft tissue gas in the plantar aspect of the heel. No evidence of osteomye litis. Carotid Doppler Study 05/04/24 14:15 IMPRESSION: 1. <50% stenosis in the right internal carotid artery. 2. <50% stenosis in the left internal carotid artery. Renal Ultrasound 05/04/24 14:16 IMPRESSION: No definite abnormality. Chest X-Ray 05/05/24 06:38 IMPRESSION: 1. Cardiomegaly and pulmonary vascular congestion without parish pulmonary edema. Labs Labs: Laboratory Tests 05/06/24 04:13 05/06/24 04:13 Calcium 8.5 Phosphorus 3.6 Magnesium 1.9 Total Bilirubin 1.1 AST 49 ALT 39 Alkaline Phosphatase 172 H Total Protein 7.0 Albumin 2.9 L Microbiology 05/03/24 19:47 Blood Blood Culture - Preliminary Gram positive cocci cluster is 05/03/24 19:45 Blood Blood Culture - Preliminary Gram positive cocci isolated
[2024-05-06] MEDS: SODIUM BICARBONATE TAB 650 MG TABLET PO ×2 (10:54→17:39)
[2024-05-06] MEDS: PANTOPRAZOLE SODIUM IV 40 MG VIAL IV PUSH (10:54)
[2024-05-06] MEDS: ATORVASTATIN 40 MG TABLET PO (10:54)
[2024-05-06] MEDS: LINEZOLID 600 MG/300 ML 600 MG/300 ML SOLN 300 MG IVPB ×2 (10:54→21:55)
[2024-05-06] MEDS: ASPIRIN 325 MG TABLET PO (10:54)
[2024-05-06] MEDS: TRIAMCINOLONE ACET 0.1% CREAM 80 GM TUBE 1 APPLIC TOPICAL ×2 (10:55→17:39)
--- NOTE | 2024-05-06 11:22 | PCNFU ---
Nutrition Follow-Up Complete: Swallowing Difficulties as related to Acute CVA as evidenced by NPO Goal: Meet estimated nutritional needs. Patient is progressing towards goal. We will continue current goal. Pt current nutrition is Soft and Bite Sized, Level 6/DBCC. Last recorded weight is 130 kg, up from 126.1 kg on admit. Bowel Motility: +BM reported 05/06 Labs Reviewed:Glu 265, BUN 63, GFR 23, NA 135, Hct 25.5, Hgb 8.5 Meds Noted: Zosyn, Protonix. Skin: WNL Additional Notes: Patient NPO today for debridement. Diet order has advanced to Soft and Bite Sized, Level 6/DBCC. Speech evaluation on 05/04. Oral Intake has been fair 25-75% of meals. Agree with diet orders. Will monitor weight, labs, skin, meds, diet orders every 3 days.
[2024-05-06 11:52] LABS: Glucose Point of Care 277 mg/dl (65-105)
[2024-05-06] MEDS: INSULIN ASPART (*BKC) 100 UNITS/ML SUB-Q ×2 (12:36→17:39)
--- NOTE | 2024-05-06 13:20 | PCPTNOTE ---
Spoke with Dr. Ta, weight bearing for transfers allowed as ordered, no ambulation at this time. No surgical book required at this time. 1315 presented to patient for Reeval. Pt appeared drowsy and declined activity at this time. Will reattempt tomorrow.
--- NOTE | 2024-05-06 13:24 | P.OP_ITS ---
Procedure Note - Detailed Date of Procedure 05/06/24 Pre-op Diagnosis Bilateral heel and right plantar forefoot diabetic foot ulcers, sepsis Post-op Diagnosis Other ( Sepsis, bilateral heel and right plantar forefoot diabetic foot ulcers with osteomyelitis.) Procedure Performed Extensive sharp scalpel excisional debridement of skin, subcutaneous tissue, fascia, and periosteum of the bilateral heel wounds and right plantar forefoot w ound. Surgeon Dionicio Ta MD [employer] [facility] MAC Indications Patient is a 63-year-old gentleman who has diabetic bilateral foot wounds. They are very chronic in nature and he was admitted with sepsis and admitted to the intensive care unit. He has other reasons for his sepsis but the bilateral foot wounds are a contributing factor. He had gangrenous changes to the feet as well as draining abscesses. Presents now for surgical drainage of the abscesses and debridement of the diabetic foot wounds. Findings On the right plantar surface of the forefoot overlying the 1st metatarsophalangeal joint there was a callus which had developed an ulcer and diabetic wound which was burrowing into the tissues and involving the right 1st metatarsophalangeal joint. It was clear osteomyelitis of the clinically. There was copious amounts of foul-smelling purulent drainage as well as necrotic tissue. In the bilateral heels the patient had a combination of dry gangrenous changes as well as wet gangrene. The gangrenous and nonviable tissue on the right heel was extensive and the majority of the soft tissue around the right calcaneus bone was resected all the way down to the periosteum. The left heel ulcer had more superficial gangrenous changes but there was 1 area that was deeper extending all the way down to the periosteum of the bone. Description of Procedure After informed consent was obtained patient brought to the operating room was placed supine position and then IV sedation was administered by anesthesia. The patient had very little feeling in his feet from his diabetic neuropathy. Bilateral lower extremities from the mid tibial region distally were all prepped and draped usual sterile fashion. Time-out was then performed correctly identifying the patient as well as procedure to be performed. Site marking was not is this is a bilateral procedure. He was already on scheduled IV antibiotics. I 1st started by performing sharp scalpel extensive debridement of the right plantar forefoot ulcer. It was located over the 1st metatarsophalangeal joint. I started cut away the callus and nonviable tissue extending into the subcutaneous tissues where there was more necrotic tissue and purulent fluid. The abscess extended deeper to the 1st metatarsophalangeal joint and there was clinical evidence of osteomyelitis. I opened the area widely and sharply debrided with the scalpel all the nonviable tissue in this area to include the skin, subcutaneous tissue, fascia, and periosteum down to the bone. The bone was exposed but it was not soft or necrotic. There was bleeding from the skin edges and some of the deeper tissues. Hemostasis was achieved in her area after sharp debridement with electrocautery. The area was then irrigated with sterile saline solution and a 4x4 piece of gauze was placed onto the wound for pressure hemostasis while I debrided the heel wounds. I then turned my attention towards sharp scalpel debridement of the left heel wound. This was the smaller of the 2 heel wounds. Is more superficial. It did have a dry gangrenous eschar over the majority of the wound but the lateral edge there was a deeper area the did have some wet gangrene extending into the subcutaneous tissues of the heel and extending all the way down to the calcaneus which had periosteum exposed. I sharply debrided this with a scalpel in an excisional fashion removing the nonviable skin and subcutaneous tissue all the way down to the periosteum of the calcaneus. Hemostasis in this wound was achieved electrocautery and it was irrigated with sterile saline solution. lastly I turned my attention towards doing sharp scalpel excisional debridement of the larger he will ulcer on the right heel. This had an extensive area of involvement of a large dry eschar with a large area of white gangrene and subcutaneous tissue extending all the way down to the calcaneus of the right heel. Pretty much all of the subcutaneous tissue and skin around the right calcaneus was involved and had to be cut away utilizing the scalpel in an excisional fashion. a large part of the right calcaneus bone was exposed and I debrided away some of the periosteum as well. There was bleeding skin edges and subcutaneous tissue once all the tissue was excised away but again this was a large area of of tissue. I did achieve hemostasis with electrocautery. It was then irrigated sterile saline solution. The right forefoot plantar surface wound after debridement measured 5x3x1.5cm. The left heel wound after debridement measured [id number]. The right heel wound after debridement measured [id number]. All 3 these wounds were then dressed with 1/4 strength Dakin's moistened gauze for packing and then cover with dry gauze and then wrapped with a Kerlix gauze and an Louis wrap for a final dressing. The patient tolerated the procedure well no complications. All sponges, needles, and instrument counts were correct at the end procedure. EBL was _100__cc. The patient was awakened and taken to recovery in stable and satisfactory condition. Implants None Estimated Blood Loss 100 Urine Output 150 Drains No Packing Yes ( quarter strength Dakin solution dressing gauze packed into the wounds) Pathology Other ( swab of the abscess cavity sent to microbiology for Gram stain, aerobic and anaerobic cultures.) Complications No immediate complications Condition Stable Disposition PACU [facility] Billing Surgery - Charge Forward: Surgery Billing
--- NOTE | 2024-05-06 13:56 | P.PNIM_ITS ---
Progress Note: A&P Assessment and Plan (1) Acute CVA (cerebrovascular accident): Code(s): I63.9 - Cerebral infarction, unspecified Status: Acute Assessment and Plan: 05/03: Patient presented with altered mental status, noted to have some facial droop and weakness. - Head CT showed acute infarct involving a portion of the right MCA territory -patient not a candidate for tPA as last well known time is unavailable -patient was found on the floor, with altered mental status, has not been seen by anybody for approximately 10 days any spoke to a friend 2 days prior to coming to the ER. This is according to the records -continue statin, aspirin -appreciate Neurology evaluation -patient has a pacemaker so may not be a candidate for MRI line carotid ultrasound less than 50% narrowing on both sides Echocardiogram with left ventricular hypertrophy ejection fraction of 40-45%. (2) Sepsis: Code(s): A41.9 - Sepsis, unspecified organism Status: Acute Assessment and Plan: Patient presented with altered mental status, fevers of 105? F, elevated lactic acid of 5.3, tachycardia -patient was given 30 mL/kg IV fluid bolus -repeat lactic was 1.8 -mild elevation in troponin is likely related to ischemic demand as patient denies any chest pain, EKG did not show any ST elevations which showed paced rhythm Was treated with sodium bicarb switched to oral bicarb. Blood culture Gram-positive cocci in clusters. On linezolid -discontinued cefepime and vancomycin And was switched to linezolid and Zosyn Did not require any pressors (3) Diabetic foot ulcer: Qualifiers: Diabetes mellitus type: type 2 Diabetic foot ulcer location: midfoot Laterality: right Non-pressure ulcer stage: with muscle involvement without evidence of necrosis Qualified Code(s): E11.621 - Type 2 diabetes mellitus with foot ulcer; L97.415 - Non-pressure chronic ulcer of right heel and midfoot with muscle involvement without evidence of necrosis Code(s): E11.621 - Type 2 diabetes mellitus with foot ulcer; L97.509 - Non-pressure chronic ulcer of other part of unspecified foot with unspecified severity Status: Acute Assessment and Plan: Patient has bilateral diabetic foot ulcers -Left foot x-ray showed no evidence of osteomyelitis -Right foot x-ray showed soft tissue gas in the plantar aspect of the heel, no evidence of osteomyelitis -surgery has been consulted due to soft tissue gas and status post debridement 05/06/2024 (4) Type 2 diabetes mellitus: Code(s): E11.9 - Type 2 diabetes mellitus without complications Status: Acute Assessment and Plan: Continue Accu-Cheks, sliding scale insulin -hemoglobin A1c is 8.4% (5) Acute kidney injury: Code(s): N17.9 - Acute kidney failure, unspecified Status: Acute Assessment and Plan: 05/03: Patient presented with acute kidney injury on admission, creatinine of 3.40. (baseline creatinine is 0.90-1.40 in September 2020) -patient has a history of hypertension, diabetes, is on Lasix, valsartan carvedilol, diltiazem at home. Unknown how long he was hypotensive prior to coming to the hospital, could be related to infection, ATN -patient received 30 mL/kg IV fluid bolus Received IV fluids and also received albumin for volume expansion given that he has a history of heart failure -CK levels trending down -CT scan of the abdomen and pelvis did not show any hydronephrosis, renal ultrasound with no acute abnormality -nephrology has been has been consulted -monitor urine output, renal function electrolytes. Creatinine trending downwards -maintain mean arterial pressures greater than 65 at all times (6) Rhabdomyolysis: Qualifiers: Rhabdomyolysis type: non-traumatic Qualified Code(s): M62.82 - Rhabdomyolysis Code(s): M62.82 - Rhabdomyolysis Status: Acute Assessment and Plan: Patient rolled off his couch and was on the floor for unknown amount of time -elevated CK levels -CK levels trending down -continue sodium bicarb infusion (7) Parkinsons disease: Code(s): G20 - Parkinson's disease Status: Acute Assessment and Plan: History of Parkinson's disease (8) Hypertension: Code(s): I10 - Essential (primary) hypertension Status: Acute Assessment and Plan: History of essential hypertension -will hold all antihypertensives as patient has borderline blood pressures (9) Hyperlipidemia: Code(s): E78.5 - Hyperlipidemia, unspecified Status: Acute Assessment and Plan: Continue atorvastatin (10) Asthma: Code(s): J45.909 - Unspecified asthma, uncomplicated Status: Acute Assessment and Plan: Patient complaining of dry cough, wheezing, states he has a history of asthma and takes inhaler p.r.n. -also start patient on bronchodilator -added p.r.n. Robitussin Plan DVT prophylaxis: SCDs, no chemoprophylaxis due to acute stroke as there could be risk of hemorrhagic transformation Stress ulcer prophylaxis: Protonix Nutrition: Appreciate speech evaluation, on diabetic soft and bite size diet Bacteremia Code Status: Do not resuscitate Subjective Date/time seen: 05/06/24 13:56 Interval history: Patient underwent debridement this a.m.. Is a bit short of breath. Complaints. No chest pain. Review of Systems Review of Systems: All systems reviewed & are unremarkable except as noted in HPI and below Exam Narrative: General: Pleasant gentleman in no acute distress HEENT:? Pupils equal and reactive, sclera is clear, dry oral mucosa Neck:? Supple Respiratory:? Clear to auscultation bilaterally, decreased at bases, adequate air entry Cardiac:? Paced rhythm Abdomen:? Soft, nontender, protuberant, nondistended, normoactive bowel sounds Extremities:? Bilateral lower feet in dressing, 1+ pitting edema, palpable pedal pulses Neuro:? Patient is awake, alert, oriented x3, able to move all extremities, strength 4/5 in bilateral upper extremity and 3/5 in bilateral lower extremity, sensations are diminished in the lower extremities Skin:? Chronic venous stasis changes on bilateral lower extremities, Psych:? Depressed affect Objective Data Vital Signs Vital Signs: Vital Signs - 24 hr 05/05/24 14:00 05/05/24 14:37 05/05/24 14:37 Temperature Pulse Rate 80 80 Respiratory Rate 16 Blood Pressure Pulse Oximetry 91 Oxygen Delivery Room Air Oxygen Flow Rate Fraction of Inspired Oxygen 21 05/05/24 16:00 05/05/24 16:00 05/05/24 16:00 Temperature 98.1 F Pulse Rate 80 80 Respiratory Rate 18 Blood Pressure 116/60 Pulse Oximetry 91 94 Oxygen Delivery Room Air Oxygen Flow Rate Fraction of Inspired Oxygen 05/05/24 18:00 05/05/24 19:29 05/05/24 20:05 Temperature 98.5 F Pulse Rate 80 80 80 Respiratory Rate 18 18 Blood Pressure 138/98 H Pulse Oximetry 92 Oxygen Delivery Oxygen Flow Rate Fraction of Inspired Oxygen 05/05/24 20:05 05/05/24 20:25 05/05/24 23:10 Temperature 98.1 F Pulse Rate 80 80 80 Respiratory Rate 20 14 Blood Pressure 130/77 Pulse Oximetry 91 96 Oxygen Delivery Room Air Oxygen Flow Rate Fraction of Inspired Oxygen 05/05/24 20:00 05/06/24 00:00 05/05/24 20:00 Temperature Pulse Rate 80 80 80 Respiratory Rate 18 14 Blood Pressure Pulse Oximetry 92 96 Oxygen Delivery Room Air Nasal Cannula Oxygen Flow Rate 2 Fraction of Inspired Oxygen 05/05/24 22:00 05/06/24 00:00 05/06/24 02:00 Temperature Pulse Rate 80 80 80 Respiratory Rate Blood Pressure Pulse Oximetry Oxygen Delivery Oxygen Flow Rate Fraction of Inspired Oxygen 05/06/24 02:25 05/06/24 02:28 05/06/24 02:31 Temperature Pulse Rate 80 80 80 Respiratory Rate 20 18 Blood Pressure Pulse Oximetry 94 Oxygen Delivery Nasal Cannula Oxygen Flow Rate 2 Fraction of Inspired Oxygen 05/06/24 03:54 05/06/24 04:00 05/06/24 04:00 Temperature 97.4 F L Pulse Rate 80 80 80 Respiratory Rate 20 20 Blood Pressure 121/73 Pulse Oximetry 98 98 Oxygen Delivery Nasal Cannula Oxygen Flow Rate 2 Fraction of Inspired Oxygen 05/06/24 05:44 05/06/24 07:19 05/06/24 07:20 Temperature Pulse Rate 80 79 Respiratory Rate 24 H Blood Pressure Pulse Oximetry 94 Oxygen Delivery Nasal Cannula Oxygen Flow Rate 2 Fraction of Inspired Oxygen 05/06/24 07:26 05/06/24 08:57 05/06/24 09:00 Temperature 97.2 F L Pulse Rate 80 80 82 Respiratory Rate 24 H 15 18 Blood Pressure 120/71 122/82 Pulse Oximetry 100 100 Oxygen Delivery Simple Face Mask Simple Face Mask Oxygen Flow Rate 10 10 Fraction of Inspired Oxygen 05/06/24 09:15 05/06/24 09:30 05/06/24 09:45 Temperature Pulse Rate 80 80 80 Respiratory Rate 20 20 20 Blood Pressure 130/86 130/62 118/81 Pulse Oximetry 99 97 95 Oxygen Delivery Nasal Cannula Nasal Cannula Nasal Cannula Oxygen Flow Rate 2 2 2 Fraction of Inspired Oxygen 05/06/24 09:51 05/06/24 08:00 05/06/24 11:47 Temperature 97.5 F L Pulse Rate 80 80 Respiratory Rate 20 20 Blood Pressure 115/75 111/68 Pulse Oximetry 95 95 95 Oxygen Delivery Nasal Cannula Nasal Cannula Oxygen Flow Rate 2 2 Fraction of Inspired Oxygen 05/06/24 10:45 Temperature 97.5 F L Pulse Rate 80 Respiratory Rate 20 Blood Pressure 120/62 Pulse Oximetry 99 Oxygen Delivery Oxygen Flow Rate Fraction of Inspired Oxygen Intake/Output Intake/Output: Intake & Output 05/03/24 05/04/24 05/05/24 05/06/24 23:59 23:59 23:59 23:59 Intake Total 3750 2768.3 3790 1475 Output Total 350 800 800 Balance 3750 2418.3 2990 675 Meds/Results Medications: Active Medications Generic Name Dose Route Start Last Admin Trade Name Freq PRN Reason Stop Dose Admin Acetaminophen 650 mg 05/05/24 13:04 Acetaminophen 325 Mg Tablet PO Q6H PRN Mild Pain (1-3) or Fever Albuterol/Ipratropium 3 ml 05/04/24 01:39 Ipratropium 0.5 Mg/Albuterol Sulfate 2.5 Mg Ampul.Neb 3 Ml INHALATION Q6HRT PRN shortness of breath or wheezing Albuterol/Ipratropium 3 ml 05/05/24 08:40 05/06/24 07:18 Ipratropium 0.5 Mg/Albuterol Sulfate 2.5 Mg Ampul.Neb 3 Ml INHALATION 3 ml Q6HRT JHOANA Administration Aspirin 325 mg 05/05/24 09:00 05/06/24 10:54 Aspirin 325 Mg Tablet PO 325 mg DAILY@0800 JHOANA Administration Atorvastatin Calcium 40 mg 05/04/24 09:00 05/06/24 10:54 Atorvastatin 40 Mg Tablet PO 40 mg DAILY JHOANA Administration Dextrose 12.5 gm 05/04/24 01:34 Dextrose 50% 25 Gm/50 Ml Syringe IV PUSH PRN PRN Hypoglycemia Protocol Diphenhydramine HCl 12.5 mg 05/04/24 15:08 05/05/24 22:13 Diphenhydramine Hcl Elixir 12.5 Mg/5 Ml Udc PO 12.5 mg Q6H PRN Administration Itching Glucagon 1 mg 05/04/24 01:34 Glucagon For Inj 1 Mg Vial IM PRN PRN Hypoglycemia Protocol Glucose 15 gm 05/04/24 01:34 Glucose Oral Gel 15 Gm Of Glucse In 37.5 Gm Tube PO PRN PRN Hypoglycemia Protocol Guaifenesin/Dextromethorphan 10 ml 05/05/24 08:37 05/05/24 21:56 Guaifenesin/Dextromethorphan 10 Ml Udc PO 10 ml Q4H PRN Administration Cough Dextrose 1,000 mls @ 100 mls/hr 05/04/24 01:34 Dextrose 5% 1,000 Ml IVPB PRN PRN Hypoglycemia Protocol Piperacillin Sod/Tazobactam Sod 2.25 gm in 50 mls @ 100 mls/hr 05/04/24 12:00 05/06/24 12:37 Zosyn 2.25 Gm/Ns 50 Ml IVPB 100 mls/hr Q6H JHOANA Administration Linezolid 600 mg in 300 mls @ 300 mls/hr 05/04/24 10:35 05/06/24 10:54 Zyvox IVPB 300 mls/hr Q12HR JHOANA Administration Insulin Aspart 3 - 6 units 05/05/24 06:30 05/06/24 12:36 Insulin Aspart (*Bkc) 100 Units/Ml SUB-Q 4 units AC JHOANA Administration Protocol Loratadine 10 mg 05/04/24 08:51 05/04/24 11:45 Loratadine 10 Mg Tablet PO 10 mg QAM PRN Administration itching Ondansetron HCl 4 mg 05/03/24 23:51 Ondansetron Inj 4 Mg/2 Ml Vial IV PUSH Q4H PRN Nausea Pantoprazole Sodium 40 mg 05/04/24 09:00 05/06/24 10:54 Pantoprazole Sodium Iv 40 Mg Vial IV PUSH 40 mg QAM JHOANA Administration Sodium Bicarbonate 650 mg 05/05/24 09:00 05/06/24 10:54 Sodium Bicarbonate Tab 650 Mg Tablet PO 05/07/24 08:59 650 mg BID JHOANA Administration Sodium Hypochlorite 1 applic 05/06/24 09:00 Sod Hypochlorite 1/4 Strength 473 Ml TOPICAL Q12HR JHOANA Triamcinolone Acetonide 1 applic 05/04/24 09:00 05/06/24 10:55 Triamcinolone Acet 0.1% Cream 80 Gm Tube TOPICAL 1 applic BID JHOANA Administration Radiology Results: ITS Impressions Head CT 05/03/24 20:56 IMPRESSION: Acute infarct involving a portion of the right MCA territory. Results reported telephonically to Dr. Duong by Dr. Langford at 9:01 PM on 05/03/2024. Cervical Spine CT 05/03/24 21:01 IMPRESSION: No acute fracture or traumatic malalignment in the cervical spine. Abdomen/Pelvis CT 05/03/24 21:06 IMPRESSION: No acute abdominopelvic process detected. Foot X-Ray 05/04/24 07:08 IMPRESSION: 1. Soft tissue gas in the plantar aspect of the heel. No evidence of osteomyelitis. Carotid Doppler Study 05/04/24 14:15 IMPRESSION: 1. <50% stenosis in the right internal carotid artery. 2. <50% stenosis in the left internal carotid artery. Renal Ultrasound 05/04/24 14:16 IMPRESSION: No definite abnormality. Chest X-Ray 05/05/24 06:38 IMPRESSION: 1. Cardiomegaly and pulmonary vascular congestion without parish pulmonary edema. Labs Labs: Laboratory Results - last 24 hr 05/05/24 05/05/24 05/06/24 17:07 21:53 04:13 WBC 20.3 H RBC 2.60 L Hgb 8.5 L Hct 25.5 L MCV 98.1 MCH 32.7 MCHC 33.3 RDW 14.0 Plt Count 317 MPV 11.0 H Immature Gran % (Auto) 1.0 H Neut % (Auto) 88.4 H Lymph % (Auto) 4.8 L [place] % (Auto) 5.1 Eos % (Auto) 0.5 Baso % (Auto) 0.2 Lymph # (Auto) 0.97 [place] # (Auto) 1.0 H Eos # (Auto) 0.1 Baso # (Auto) 0.0 Abs Immat Gran (auto) 0.21 H Absolute Neuts (auto) 18.0 H Absolute Nucleated RBC 0.020 H Nucleated RBC % 0.1 Platelet Estimate Adequate Hypochromasia 1+ Ovalocytes 1+ Schistocytes None seen Sodium 135 L Potassium 3.5 Chloride 103 Carbon Dioxide 23 Anion Gap 9 BUN 63 H Creatinine 2.80 H Estim Creat Clear Calc 34 Estimated GFR 23 L Glucose 265 H POC Capillary Glucose 240 H 210 H Calcium 8.5 Phosphorus 3.6 Magnesium 1.9 Total Bilirubin 1.1 AST 49 ALT 39 Alkaline Phosphatase 172 H Total Protein 7.0 Albumin 2.9 L 05/06/24 05/06/24 05/06/24 07:31 08:59 11:34 WBC RBC Hgb Hct MCV MCH MCHC RDW Plt Count MPV Immature Gran % (Auto) Neut % (Auto) Lymph % (Auto) [place] % (Auto) Eos % (Auto) Baso % (Auto) Lymph # (Auto) [place] # (Auto) Eos # (Auto) Baso # (Auto) Abs Immat Gran (auto) Absolute Neuts (auto) Absolute Nucleated RBC Nucleated RBC % Platelet Estimate Hypochromasia Ovalocytes Schistocytes Sodium Potassium Chloride Carbon Dioxide Anion Gap BUN Creatinine Estim Creat Clear Calc Estimated GFR Glucose POC Capillary Glucose 254 H 237 H 277 H Calcium Phosphorus Magnesium Total Bilirubin AST ALT Alkaline Phosphatase Total Protein Albumin
[2024-05-06 16:44] LABS: Glucose Point of Care 261 mg/dl (65-105)
[2024-05-06 20:33] LABS: Glucose Point of Care 233 mg/dl (65-105)
[2024-05-06] MEDS: SOD HYPOCHLORITE 1/4 STRENGTH 473 ML 1 APPLIC TOPICAL (22:26)
[2024-05-06] MEDS: ACETAMINOPHEN 325 MG TABLET 650 MG PO (22:35)
[2024-05-06] MEDS: guaiFENesin/DEXTROMETHORPHAN 10 ML UDC PO (22:35)
[2024-05-06] MEDS: diphenhydrAMINE HCL ELIXIR 12.5 MG/5 ML UDC PO (22:36)
[2024-05-07] VITALS (25 sets, daily range): BP systolic 102–131; BP diastolic 63–98; PULSE 79–98; RESP 16–28; TEMP 36.4–36.9; O2SAT 90–98
[2024-05-07] MEDS: PIPERACILLIN/TAZ 2.25G/NS 50ML 2.25 GM/50 ML BAG IVPB ×5 (00:08→23:28)
[2024-05-07] MEDS: IPRATROPIUM 0.5 MG/ALBUTEROL SULFATE 2.5 MG AMPUL.NEB 3 ML INHALATION ×3 (01:03→13:16)
[2024-05-07 03:48] LABS: Hepatitis B Core Ab Total NON-REACTIVE (NON-REACTIVE)
[2024-05-07 04:06] LABS: Basophils Absolute Auto 0.1 K/mm3 (0.0-0.1); Basophils Percent Auto 0.4 % (0.2-1.2); Eosinophils Absolute Auto 0.2 K/mm3 (0-0.3); Eosinophils Percent Auto 0.8 % (0-4.4); Hematocrit 26.3 % (42.0-52.0); Hemoglobin 8.4 g/dL (14.0-18.0); Immature Granulocyte Absolute 0.18 K/mm3 (0.00-0.031); Immature Granulocyte Percent A 0.9 % (0-0.5); Lymphocytes Absolute Auto 1.19 K/mm3 (0.9-3.2); Lymphocytes Percent Auto 6.2 % (18.3-44.2); Mean Corpuscular HGB Conc 31.9 g/dl (32-36); Mean Corpuscular Hemoglobin 32.4 pg (26-34); Mean Corpuscular Volume 101.5 fl (80-100); Mean Platelet Volume 10.7 fl (7.4-10.4); Monocytes Absolute Auto 1.1 K/mm3 (0.1-0.6); Monocytes Percent Auto 5.5 % (2.6-8.5); Neutrophils Absolute Auto 16.7 K/mm3 (1.3-6.7); Neutrophils Percent Auto 86.2 % (45.5-73.1); Platelet Count Result 322 k/mm3 (150-375); Red Blood Count 2.59 M/mm3 (4.6-6.20); Red Cell Distribution Width 14.4 % (11.5-14.5); White Blood Count 19.3 K/mm3 (4.5-10.0)
[2024-05-07 04:30] LABS: Alanine Aminotransferase 37 U/L (6-50); Albumin Level 2.9 g/dL (3.5-5.1); Alkaline Phosphatase 169 U/L (38-126); Anion Gap 7 mmol/L (4-12); Aspartate Amino Transferase 41 U/L (17-59); Bilirubin,Total 0.8 mg/dL (0.2-1.3); Blood Urea Nitrogen 62 mg/dL (9-20); Calcium 8.7 mg/dL (8.4-10.2); Carbon Dioxide 27 mmol/L (22-30); Chloride 103 mmol/L (98-107); Estimated CRCL calculation 33 ml/min; Estimated Glomerular Filt Rate 22; Glucose 249 mg/dL (65-110); Phosphorus 4.4 mg/dL (2.5-4.5); Potassium 3.7 mmol/L (3.4-5.0); Sodium 137 mmol/L (137-145)
[2024-05-07 06:47] LABS: Glucose Point of Care 230 mg/dl (65-105)
--- NOTE | 2024-05-07 07:20 | P.PNAN_ITS ---
Anes - Prog Note Post-Op Date/Time: 05/07/24 07:20 Cardiovascular status: other (anemia) Respiratory status: normal (1 L O2 NC) Airway patency: baseline Mental status: baseline Post-Op hydration status: normal Vital Signs: Last Vital Signs Temp 36.9 C 05/07/24 03:46 Pulse 80 05/07/24 04:00 Resp 20 05/07/24 04:00 BP 128/98 H 05/07/24 03:46 Pulse Ox 98 05/07/24 04:00 O2 Del Method Nasal Cannula 05/07/24 04:00 O2 Flow Rate 1 05/07/24 04:00 FiO2 28 05/06/24 07:20 Pain Score (VAS): 07/18 I/O: Intake & Output 05/06/24 05/06/24 05/07/24 15:59 23:59 07:59 Intake Total 450 350 600 Output Total 300 475 Balance 150 -125 600 Laboratory Tests 05/07/24 03:46 05/07/24 03:46 05/05/24 05/06/24 05/06/24 04:13 07:31 08:59 WBC RBC Hgb Hct MCV MCH MCHC RDW Plt Count MPV Immature Gran % (Auto) Neut % (Auto) Lymph % (Auto) [place] % (Auto) Eos % (Auto) Baso % (Auto) Lymph # (Auto) [place] # (Auto) Eos # (Auto) Baso # (Auto) Abs Immat Gran (auto) Absolute Neuts (auto) Absolute Nucleated RBC Nucleated RBC % Sodium Potassium Chloride Carbon Dioxide Anion Gap BUN Creatinine Estim Creat Clear Calc Estimated GFR Glucose POC Capillary Glucose 254 H 237 H Calcium Phosphorus Magnesium Total Bilirubin AST ALT Alkaline Phosphatase Total Protein Albumin Hep B Core Total Ab Non-reactive 05/06/24 05/06/24 05/06/24 11:34 16:36 20:02 WBC RBC Hgb Hct MCV MCH MCHC RDW Plt Count MPV Immature Gran % (Auto) Neut % (Auto) Lymph % (Auto) [place] % (Auto) Eos % (Auto) Baso % (Auto) Lymph # (Auto) [place] # (Auto) Eos # (Auto) Baso # (Auto) Abs Immat Gran (auto) Absolute Neuts (auto) Absolute Nucleated RBC Nucleated RBC % Sodium Potassium Chloride Carbon Dioxide Anion Gap BUN Creatinine Estim Creat Clear Calc Estimated GFR Glucose POC Capillary Glucose 277 H 261 H 233 H Calcium Phosphorus Magnesium Total Bilirubin AST ALT Alkaline Phosphatase Total Protein Albumin Hep B Core Total Ab 05/07/24 05/07/24 03:46 06:44 WBC 19.3 H RBC 2.59 L Hgb 8.4 L Hct 26.3 L MCV 101.5 H MCH 32.4 MCHC 31.9 L RDW 14.4 Plt Count 322 MPV 10.7 H Immature Gran % (Auto) 0.9 H Neut % (Auto) 86.2 H Lymph % (Auto) 6.2 L [place] % (Auto) 5.5 Eos % (Auto) 0.8 Baso % (Auto) 0.4 Lymph # (Auto) 1.19 [place] # (Auto) 1.1 H Eos # (Auto) 0.2 Baso # (Auto) 0.1 Abs Immat Gran (auto) 0.18 H Absolute Neuts (auto) 16.7 H Absolute Nucleated RBC 0.000 Nucleated RBC % 0.0 Sodium 137 Potassium 3.7 Chloride 103 Carbon Dioxide 27 Anion Gap 7 BUN 62 H Creatinine 2.90 H Estim Creat Clear Calc 33 Estimated GFR 22 L Glucose 249 H POC Capillary Glucose 230 H Calcium 8.7 Phosphorus 4.4 Magnesium 2.0 Total Bilirubin 0.8 AST 41 ALT 37 Alkaline Phosphatase 169 H Total Protein 7.0 Albumin 2.9 L Hep B Core Total Ab Post-procedural complaints: none Patient Feedback: Patient satisfied with anesthetic care.
[2024-05-07 07:52] LABS: Glucose Point of Care 231 mg/dl (65-105)
[2024-05-07] MEDS: guaiFENesin/DEXTROMETHORPHAN 10 ML UDC PO ×3 (09:43→23:39)
[2024-05-07] MEDS: PANTOPRAZOLE SODIUM IV 40 MG VIAL IV PUSH (09:43)
[2024-05-07] MEDS: ATORVASTATIN 40 MG TABLET PO (09:43)
[2024-05-07] MEDS: ACETAMINOPHEN 325 MG TABLET 650 MG PO (09:43)
[2024-05-07] MEDS: ASPIRIN 325 MG TABLET PO (09:44)
[2024-05-07] MEDS: TRIAMCINOLONE ACET 0.1% CREAM 80 GM TUBE 1 APPLIC TOPICAL ×2 (09:45→17:23)
[2024-05-07] MEDS: SOD HYPOCHLORITE 1/4 STRENGTH 473 ML 1 APPLIC TOPICAL ×2 (09:45→22:50)
[2024-05-07] MEDS: LINEZOLID 600 MG/300 ML 600 MG/300 ML SOLN 300 MG IVPB ×2 (09:46→22:40)
[2024-05-07] MEDS: INSULIN GLARGINE (*BKC) 100 UNITS/ML 15 UNITS SUB-Q (10:24)
--- NOTE | 2024-05-07 11:17 | P.PNIM_ITS ---
Progress Note: A&P Assessment and Plan (1) Acute CVA (cerebrovascular accident): Code(s): I63.9 - Cerebral infarction, unspecified Status: Acute Assessment and Plan: 05/03: Patient presented with altered mental status, noted to have some facial droop and weakness. - Head CT showed acute infarct involving a portion of the right MCA territory -patient not a candidate for tPA as last well known time is unavailable -patient was found on the floor, with altered mental status, has not been seen by anybody for approximately 10 days any spoke to a friend 2 days prior to coming to the ER. This is according to the records -continue statin, aspirin -appreciate Neurology evaluation -patient has a pacemaker so may not be a candidate for MRI line carotid ultrasound less than 50% narrowing on both sides Echocardiogram with left ventricular hypertrophy ejection fraction of 40-45%. (2) Sepsis: Code(s): A41.9 - Sepsis, unspecified organism Status: Acute Assessment and Plan: Patient presented with altered mental status, fevers of 105? F, elevated lactic acid of 5.3, tachycardia -patient was given 30 mL/kg IV fluid bolus -repeat lactic was 1.8 -mild elevation in troponin is likely related to ischemic demand as patient denies any chest pain, EKG did not show any ST elevations which showed paced rhythm Was treated with sodium bicarb switched to oral bicarb. Blood culture Gram-positive cocci in clusters. Identified as gemella morbillorum. Repeat blood culture had been obtained. On linezolid -discontinued cefepime and vancomycin And was switched to linezolid and Zosyn Did not require any pressors (3) Diabetic foot ulcer: Qualifiers: Diabetes mellitus type: type 2 Diabetic foot ulcer location: midfoot Laterality: right Non-pressure ulcer stage: with muscle involvement without evidence of necrosis Qualified Code(s): E11.621 - Type 2 diabetes mellitus with foot ulcer; L97.415 - Non-pressure chronic ulcer of right heel and midfoot with muscle involvement without evidence of necrosis Code(s): E11.621 - Type 2 diabetes mellitus with foot ulcer; L97.509 - Non-pressure chronic ulcer of other part of unspecified foot with unspecified severity Status: Acute Assessment and Plan: Patient has bilateral diabetic foot ulcers -Left foot x-ray showed no evidence of osteomyelitis -Right foot x-ray showed soft tissue gas in the plantar aspect of the heel, no evidence of osteomyelitis -surgery has been consulted due to soft tissue gas and status post debridement 05/06/2024 (4) Type 2 diabetes mellitus: Code(s): E11.9 - Type 2 diabetes mellitus without complications Status: Acute Assessment and Plan: Continue Accu-Cheks, sliding scale insulin -hemoglobin A1c is 8.4% (5) Acute kidney injury: Code(s): N17.9 - Acute kidney failure, unspecified Status: Acute Assessment and Plan: 05/03: Patient presented with acute kidney injury on admission, creatinine of 3.40. (baseline creatinine is 0.90-1.40 in September 2020) -patient has a history of hypertension, diabetes, is on Lasix, valsartan carvedilol, diltiazem at home. Unknown how long he was hypotensive prior to coming to the hospital, could be related to infection, ATN -patient received 30 mL/kg IV fluid bolus Received IV fluids and also received albumin for volume expansion given that he has a history of heart failure -CK levels trending down -CT scan of the abdomen and pelvis did not show any hydronephrosis, renal ultrasound with no acute abnormality -nephrology has been has been consulted -monitor urine output, renal function electrolytes. Creatinine trending downwards -maintain mean arterial pressures greater than 65 at all times (6) Rhabdomyolysis: Qualifiers: Rhabdomyolysis type: non-traumatic Qualified Code(s): M62.82 - Rhabdomyolysis Code(s): M62.82 - Rhabdomyolysis Status: Acute Assessment and Plan: Patient rolled off his couch and was on the floor for unknown amount of time -elevated CK levels -CK levels trending down -continue sodium bicarb infusion (7) Parkinsons disease: Code(s): G20 - Parkinson's disease Status: Acute Assessment and Plan: History of Parkinson's disease (8) Hypertension: Code(s): I10 - Essential (primary) hypertension Status: Acute Assessment and Plan: History of essential hypertension -will hold all antihypertensives as patient has borderline blood pressures (9) Hyperlipidemia: Code(s): E78.5 - Hyperlipidemia, unspecified Status: Acute Assessment and Plan: Continue atorvastatin (10) Asthma: Code(s): J45.909 - Unspecified asthma, uncomplicated Status: Acute Assessment and Plan: Patient complaining of dry cough, wheezing, states he has a history of asthma and takes inhaler p.r.n. Patient on bronchodilator -added p.r.n. Robitussin Plan DVT prophylaxis: SCDs, no chemoprophylaxis due to acute stroke as there could be risk of hemorrhagic transformation Stress ulcer prophylaxis: Protonix Nutrition: Appreciate speech evaluation, on diabetic soft and bite size diet Bacteremia Code Status: Do not resuscitate Subjective Date/time seen: 05/07/24 11:17 Interval history: No overnight events. Off oxygen this a.m.. Denies any new complaints. Review of Systems Review of Systems: All systems reviewed & are unremarkable except as noted in HPI and below Exam Narrative: General: Pleasant gentleman in no acute distress sitting up in the chair HEENT:? Pupils equal and reactive, sclera is clear, dry oral mucosa Neck:? Supple Respiratory:? Clear to auscultation bilaterally, decreased at bases, adequate air entry Cardiac:? Paced rhythm Abdomen:? Soft, nontender, protuberant, nondistended, normoactive bowel sounds Extremities:? Bilateral lower feet in dressing, 1+ pitting edema, palpable pedal pulses Neuro:? Patient is awake, alert, oriented x3, able to move all extremities, strength 4/5 in bilateral upper extremity and 3/5 in bilateral lower extremity, sensations are diminished in the lower extremities Skin:? Chronic venous stasis changes on bilateral lower extremities, Psych:? Depressed affect Objective Data Vital Signs Vital Signs: Vital Signs - 24 hr 05/06/24 11:47 05/06/24 12:00 05/06/24 14:00 Temperature 97.5 F L Pulse Rate 80 80 80 Respiratory Rate 20 Blood Pressure 111/68 Pulse Oximetry 95 Oxygen Delivery Oxygen Flow Rate 05/06/24 12:00 05/06/24 14:32 05/06/24 14:40 Temperature Pulse Rate 80 80 Respiratory Rate 20 20 Blood Pressure Pulse Oximetry 95 Oxygen Delivery Nasal Cannula Oxygen Flow Rate 2 05/06/24 15:45 05/06/24 16:00 05/06/24 16:00 Temperature 97.4 F L Pulse Rate 80 80 Respiratory Rate 20 Blood Pressure 113/72 Pulse Oximetry 100 100 Oxygen Delivery Nasal Cannula Oxygen Flow Rate 2 05/06/24 18:00 05/06/24 19:56 05/06/24 20:00 Temperature Pulse Rate 80 80 80 Respiratory Rate 20 20 Blood Pressure Pulse Oximetry 96 Oxygen Delivery Nasal Cannula Oxygen Flow Rate 2 05/06/24 20:10 05/06/24 20:14 05/06/24 23:33 Temperature 97.6 F 97.7 F Pulse Rate 78 80 98 Respiratory Rate 20 20 20 Blood Pressure 119/74 113/63 Pulse Oximetry 100 98 Oxygen Delivery Oxygen Flow Rate 05/06/24 20:00 05/06/24 22:00 05/07/24 00:00 Temperature Pulse Rate 80 80 80 Respiratory Rate Blood Pressure Pulse Oximetry Oxygen Delivery Oxygen Flow Rate 05/06/24 21:50 05/07/24 01:03 05/07/24 01:05 Temperature Pulse Rate 80 80 80 Respiratory Rate 20 20 20 Blood Pressure Pulse Oximetry 100 98 Oxygen Delivery Nasal Cannula Nasal Cannula Oxygen Flow Rate 2 2 05/07/24 01:14 05/07/24 03:46 05/07/24 00:00 Temperature 98.4 F Pulse Rate 80 80 98 Respiratory Rate 20 20 20 Blood Pressure 128/98 H Pulse Oximetry 98 98 Oxygen Delivery Nasal Cannula Oxygen Flow Rate 2 05/07/24 04:00 05/07/24 02:00 05/07/24 04:00 Temperature Pulse Rate 80 80 80 Respiratory Rate 20 Blood Pressure Pulse Oximetry 98 Oxygen Delivery Nasal Cannula Oxygen Flow Rate 1 05/07/24 06:00 05/07/24 00:30 05/07/24 08:00 Temperature 97.5 F L Pulse Rate 80 80 79 Respiratory Rate 20 24 H Blood Pressure 118/69 Pulse Oximetry 94 94 Oxygen Delivery Nasal Cannula Oxygen Flow Rate 1 05/07/24 07:45 05/07/24 09:22 05/07/24 08:00 Temperature Pulse Rate 83 81 81 Respiratory Rate 20 20 20 Blood Pressure Pulse Oximetry 98 Oxygen Delivery Nasal Cannula Oxygen Flow Rate 2 05/07/24 08:50 Temperature Pulse Rate Respiratory Rate Blood Pressure Pulse Oximetry Oxygen Delivery Nasal Cannula Oxygen Flow Rate 1 Intake/Output Intake/Output: Intake & Output 05/04/24 05/05/24 05/06/24 05/07/24 23:59 23:59 23:59 23:59 Intake Total 2768.3 3790 2175 650 Output Total 013 305 2535 Balance 2418.3 2990 900 650 Meds/Results Medications: Active Medications Generic Name Dose Route Start Last Admin Trade Name Freq PRN Reason Stop Dose Admin Acetaminophen 650 mg 05/05/24 13:04 05/07/24 09:43 Acetaminophen 325 Mg Tablet PO 650 mg Q6H PRN Administration Mild Pain (1-3) or Fever Albuterol/Ipratropium 3 ml 05/04/24 01:39 Ipratropium 0.5 Mg/Albuterol Sulfate 2.5 Mg Ampul.Neb 3 Ml INHALATION Q6HRT PRN shortness of breath or wheezing Albuterol/Ipratropium 3 ml 05/05/24 08:40 05/07/24 07:33 Ipratropium 0.5 Mg/Albuterol Sulfate 2.5 Mg Ampul.Neb 3 Ml INHALATION 3 ml Q6HRT JHOANA Administration Aspirin 325 mg 05/05/24 09:00 05/07/24 09:44 Aspirin 325 Mg Tablet PO 325 mg DAILY@0800 JHOANA Administration Atorvastatin Calcium 40 mg 05/04/24 09:00 05/07/24 09:43 Atorvastatin 40 Mg Tablet PO 40 mg DAILY JHOANA Administration Dextrose 12.5 gm 05/04/24 01:34 Dextrose 50% 25 Gm/50 Ml Syringe IV PUSH PRN PRN Hypoglycemia Protocol Diphenhydramine HCl 12.5 mg 05/04/24 15:08 05/06/24 22:36 Diphenhydramine Hcl Elixir 12.5 Mg/5 Ml Udc PO 12.5 mg Q6H PRN Administration Itching Glucagon 1 mg 05/04/24 01:34 Glucagon For Inj 1 Mg Vial IM PRN PRN Hypoglycemia Protocol Glucose 15 gm 05/04/24 01:34 Glucose Oral Gel 15 Gm Of Glucse In 37.5 Gm Tube PO PRN PRN Hypoglycemia Protocol Guaifenesin/Dextromethorphan 10 ml 05/05/24 08:37 05/07/24 09:43 Guaifenesin/Dextromethorphan 10 Ml Udc PO 10 ml Q4H PRN Administration Cough Dextrose 1,000 mls @ 100 mls/hr 05/04/24 01:34 Dextrose 5% 1,000 Ml IVPB PRN PRN Hypoglycemia Protocol Piperacillin Sod/Tazobactam Sod 2.25 gm in 50 mls @ 100 mls/hr 05/04/24 12:00 05/07/24 06:13 Zosyn 2.25 Gm/Ns 50 Ml IVPB Infused Q6H JHOANA Infusion Linezolid 600 mg in 300 mls @ 300 mls/hr 05/04/24 10:35 05/07/24 09:46 Zyvox IVPB 300 mls/hr Q12HR JHOANA Administration Insulin Aspart 3 - 6 units 05/05/24 06:30 05/07/24 09:42 Insulin Aspart (*Bkc) 100 Units/Ml SUB-Q Not Given [facility] Protocol Insulin Glargine 15 units 05/08/24 09:00 Insulin Glargine (*Bkc) 100 Units/Ml SUB-Q DAILY [facility] Loratadine 10 mg 05/04/24 08:51 05/04/24 11:45 Loratadine 10 Mg Tablet PO 10 mg QAM PRN Administration itching Ondansetron HCl 4 mg 05/03/24 23:51 Ondansetron Inj 4 Mg/2 Ml Vial IV PUSH Q4H PRN Nausea Pantoprazole Sodium 40 mg 05/04/24 09:00 05/07/24 09:43 Pantoprazole Sodium Iv 40 Mg Vial IV PUSH 40 mg QAM JHOANA Administration Sodium Hypochlorite 1 applic 05/06/24 09:00 05/07/24 09:45 Sod Hypochlorite 1/4 Strength 473 Ml TOPICAL 1 applic Q12HR JHOANA Administration Triamcinolone Acetonide 1 applic 05/04/24 09:00 05/07/24 09:45 Triamcinolone Acet 0.1% Cream 80 Gm Tube TOPICAL 1 applic BID JHOANA Administration Radiology Results: ITS Impressions Head CT 05/03/24 20:56 IMPRESSION: Acute infarct involving a portion of the right MCA territory. Results reported telephonically to Dr. Duong by Dr. Langford at 9:01 PM on 05/03/2024. Cervical Spine CT 05/03/24 21:01 IMPRESSION: No acute fracture or traumatic malalignment in the cervical spine. Abdomen/Pelvis CT 05/03/24 21:06 IMPRESSION: No acute abdominopelvic process detected. Foot X-Ray 05/04/24 07:08 IMPRESSION: 1. Soft tissue gas in the plantar aspect of the heel. No evidence of osteomyelitis. Carotid Doppler Study 05/04/24 14:15 IMPRESSION: 1. <50% stenosis in the right internal carotid artery. 2. <50% stenosis in the left internal carotid artery. Renal Ultrasound 05/04/24 14:16 IMPRESSION: No definite abnormality. Chest X-Ray 05/05/24 06:38 IMPRESSION: 1. Cardiomegaly and pulmonary vascular congestion without parish pulmonary edema. Labs Labs: Laboratory Results - last 24 hr 05/05/24 05/06/24 05/06/24 04:13 11:34 16:36 WBC RBC Hgb Hct MCV MCH MCHC RDW Plt Count MPV Immature Gran % (Auto) Neut % (Auto) Lymph % (Auto) [place] % (Auto) Eos % (Auto) Baso % (Auto) Lymph # (Auto) [place] # (Auto) Eos # (Auto) Baso # (Auto) Abs Immat Gran (auto) Absolute Neuts (auto) Absolute Nucleated RBC Nucleated RBC % Sodium Potassium Chloride Carbon Dioxide Anion Gap BUN Creatinine Estim Creat Clear Calc Estimated GFR Glucose POC Capillary Glucose 277 H 261 H Calcium Phosphorus Magnesium Total Bilirubin AST ALT Alkaline Phosphatase Total Protein Albumin Hep B Core Total Ab Non-reactive 05/06/24 05/07/24 05/07/24 20:02 03:46 06:44 WBC 19.3 H RBC 2.59 L Hgb 8.4 L Hct 26.3 L MCV 101.5 H MCH 32.4 MCHC 31.9 L RDW 14.4 Plt Count 322 MPV 10.7 H Immature Gran % (Auto) 0.9 H Neut % (Auto) 86.2 H Lymph % (Auto) 6.2 L [place] % (Auto) 5.5 Eos % (Auto) 0.8 Baso % (Auto) 0.4 Lymph # (Auto) 1.19 [place] # (Auto) 1.1 H Eos # (Auto) 0.2 Baso # (Auto) 0.1 Abs Immat Gran (auto) 0.18 H Absolute Neuts (auto) 16.7 H Absolute Nucleated RBC 0.000 Nucleated RBC % 0.0 Sodium 137 Potassium 3.7 Chloride 103 Carbon Dioxide 27 Anion Gap 7 BUN 62 H Creatinine 2.90 H Estim Creat Clear Calc 33 Estimated GFR 22 L Glucose 249 H POC Capillary Glucose 233 H 230 H Calcium 8.7 Phosphorus 4.4 Magnesium 2.0 Total Bilirubin 0.8 AST 41 ALT 37 Alkaline Phosphatase 169 H Total Protein 7.0 Albumin 2.9 L Hep B Core Total Ab 05/07/24 07:48 WBC RBC Hgb Hct MCV MCH MCHC RDW Plt Count MPV Immature Gran % (Auto) Neut % (Auto) Lymph % (Auto) [place] % (Auto) Eos % (Auto) Baso % (Auto) Lymph # (Auto) [place] # (Auto) Eos # (Auto) Baso # (Auto) Abs Immat Gran (auto) Absolute Neuts (auto) Absolute Nucleated RBC Nucleated RBC % Sodium Potassium Chloride Carbon Dioxide Anion Gap BUN Creatinine Estim Creat Clear Calc Estimated GFR Glucose POC Capillary Glucose 231 H Calcium Phosphorus Magnesium Total Bilirubin AST ALT Alkaline Phosphatase Total Protein Albumin Hep B Core Total Ab
[2024-05-07 12:39] LABS: Glucose Point of Care 292 mg/dl (65-105)
--- NOTE | 2024-05-07 13:34 | P.PNNP_ITS ---
Progress Note: A&P Assessment and Plan (1) Acute kidney injury: Code(s): N17.9 - Acute kidney failure, unspecified Status: Acute Assessment and Plan: * slow improvement * as noted by admission labs -- creatinine 3.40mg/dl * suspect multifactorial etiology * hypotension/hemodynamic instability on admission * sepsis/infection (bacteremia) * rhabdomyolysis * element of disease progression (?) * s/p IVF resuscitation along with bicarb fluids * evaluation to date noted: * CT scan of the abdomen/pelvis did not show any hydronephrosis * renal ultrasound normal * urine electrolytes prerenal * urine eosinophils negative * CPK mildly elevated - follow trend * UA with 2+ protein and 1+ blood * Blood pressure is better. * White cell count is down to 19,000. temperature is down to normal. * CK level never was really very high but is improving. * creatinine is a little bit better yesterday and about the same today. * Will check another number tomorrow (2) Stage 3a chronic kidney disease: Code(s): N18.31 - Chronic kidney disease, stage 3a Status: Chronic Assessment and Plan: * creatinine running ~ 1.3 - 1.4mg/dl (although last labs are from 2020) * presumably secondary to hypertension, diabetes, and vascular disease * cannot discount an element of CKD progression (since last labs available are from 3 years ago....) (3) Sepsis: Code(s): A41.9 - Sepsis, unspecified organism Status: Acute Assessment and Plan: * as noted on presentation with AMS, high fevers, lactic acidosis, and tachycardia * s/p aggressive IVF resuscitation * bicarb IVFs for acidosis * follow culture data * GPC noted on 05/03 blood cultures * repeat cultures are negative so far * on Zosyn and linezolid * never needed vasopressor therapy * numbers are generally better (4) Acute CVA (cerebrovascular accident): Code(s): I63.9 - Cerebral infarction, unspecified Status: Acute Assessment and Plan: * presentation with AMS as well as facial droop + weakness * admission head CT showed acute infarct involving a portion of the right MCA territory * not a candidate for tPA as unclear when he was last at baseline * found on the floor - unclear duration as well * Neurology following (5) Diabetic foot ulcer: Qualifiers: Diabetes mellitus type: type 2 Diabetic foot ulcer location: midfoot Laterality: right Non-pressure ulcer stage: with muscle involvement without evidence of necrosis Qualified Code(s): E11.621 - Type 2 diabetes mellitus with foot ulcer; L97.415 - Non-pressure chronic ulcer of right heel and midfoot with muscle involvement without evidence of necrosis Code(s): E11.621 - Type 2 diabetes mellitus with foot ulcer; L97.509 - Non-pressure chronic ulcer of other part of unspecified foot with unspecified severity Status: Acute Assessment and Plan: * extensive LE wounds on feet and heels * left foot x-ray showed no evidence of osteomyelitis * right foot x-ray showed soft tissue gas in the plantar aspect of the heel, no evidence of osteomyelitis * Surgery following * s/p debridement in OR today (05/06) (6) Hypertension: Code(s): I10 - Essential (primary) hypertension Status: Acute Assessment and Plan: * known history * BP medications were on hold due to sepsis and hypotension on admission * off all blood pressure medicines so far and blood pressure is well controlle d. (7) Type 2 diabetes mellitus: Code(s): E11.9 - Type 2 diabetes mellitus without complications Status: Acute Assessment and Plan: * follow accu-cheks * glycemic control per machine sprayer/hospitalist Subjective Date/time seen: 05/07/24 13:34 Interval history: he feels about the same. Eating some lunch. No chest pain or shortness of breath Exam Narrative: General: WD/WN male in NAD Heart: normal S1 and S2; no rub or gallop Lungs: clear anteriorly Abdomen: soft, nontender, nondistended, positive bowel sounds Extremities: 1+ bilateral edema Skin: dressings in place over bilateral feet/LEs Objective Data Vital Signs Vital Signs: Vital Signs - 24 hr 05/06/24 14:00 05/06/24 14:32 05/06/24 14:40 Temperature Pulse Rate 80 80 80 Respiratory Rate 20 20 Blood Pressure Pulse Oximetry Oxygen Delivery Oxygen Flow Rate 05/06/24 15:45 05/06/24 16:00 05/06/24 16:00 Temperature 97.4 F L Pulse Rate 80 80 Respiratory Rate 20 Blood Pressure 113/72 Pulse Oximetry 100 100 Oxygen Delivery Nasal Cannula Oxygen Flow Rate 2 05/06/24 18:00 05/06/24 19:56 05/06/24 20:00 Temperature Pulse Rate 80 80 80 Respiratory Rate 20 20 Blood Pressure Pulse Oximetry 96 Oxygen Delivery Nasal Cannula Oxygen Flow Rate 2 05/06/24 20:10 05/06/24 20:14 05/06/24 23:33 Temperature 97.6 F 97.7 F Pulse Rate 78 80 98 Respiratory Rate 20 20 20 Blood Pressure 119/74 113/63 Pulse Oximetry 100 98 Oxygen Delivery Oxygen Flow Rate 05/06/24 20:00 05/06/24 22:00 05/07/24 00:00 Temperature Pulse Rate 80 80 80 Respiratory Rate Blood Pressure Pulse Oximetry Oxygen Delivery Oxygen Flow Rate 05/06/24 21:50 05/07/24 01:03 05/07/24 01:05 Temperature Pulse Rate 80 80 80 Respiratory Rate 20 20 20 Blood Pressure Pulse Oximetry 100 98 Oxygen Delivery Nasal Cannula Nasal Cannula Oxygen Flow Rate 2 2 05/07/24 01:14 05/07/24 03:46 05/07/24 00:00 Temperature 98.4 F Pulse Rate 80 80 98 Respiratory Rate 20 20 20 Blood Pressure 128/98 H Pulse Oximetry 98 98 Oxygen Delivery Nasal Cannula Oxygen Flow Rate 2 05/07/24 04:00 05/07/24 02:00 05/07/24 04:00 Temperature Pulse Rate 80 80 80 Respiratory Rate 20 Blood Pressure Pulse Oximetry 98 Oxygen Delivery Nasal Cannula Oxygen Flow Rate 1 05/07/24 06:00 05/07/24 00:30 05/07/24 08:00 Temperature 97.5 F L Pulse Rate 80 80 79 Respiratory Rate 20 24 H Blood Pressure 118/69 Pulse Oximetry 94 94 Oxygen Delivery Nasal Cannula Oxygen Flow Rate 1 05/07/24 07:45 05/07/24 09:22 05/07/24 08:00 Temperature Pulse Rate 83 81 81 Respiratory Rate 20 20 20 Blood Pressure Pulse Oximetry 98 Oxygen Delivery Nasal Cannula Oxygen Flow Rate 2 05/07/24 08:50 05/07/24 12:00 05/07/24 13:16 Temperature 97.6 F Pulse Rate 80 80 Respiratory Rate 16 20 Blood Pressure 102/63 Pulse Oximetry 97 Oxygen Delivery Nasal Cannula Oxygen Flow Rate 1 Intake/Output Intake/Output: Intake & Output 05/04/24 05/05/24 05/06/24 05/07/24 23:59 23:59 23:59 23:59 Intake Total 2768.3 3790 2175 650 Output Total 349 984 2899 Balance 2418.3 2990 649 650 Meds/Results Medications: Active Medications Generic Name Dose Route Start Last Admin Trade Name Freq PRN Reason Stop Dose Admin Acetaminophen 650 mg 05/05/24 13:04 05/07/24 09:43 Acetaminophen 325 Mg Tablet PO 650 mg Q6H PRN Administration Mild Pain (1-3) or Fever Albuterol/Ipratropium 3 ml 05/04/24 01:39 Ipratropium 0.5 Mg/Albuterol Sulfate 2.5 Mg Ampul.Neb 3 Ml INHALATION Q6HRT PRN shortness of breath or wheezing Albuterol/Ipratropium 3 ml 05/05/24 08:40 05/07/24 13:16 Ipratropium 0.5 Mg/Albuterol Sulfate 2.5 Mg Ampul.Neb 3 Ml INHALATION 3 ml Q6HRT JHOANA Administration Aspirin 325 mg 05/05/24 09:00 05/07/24 09:44 Aspirin 325 Mg Tablet PO 325 mg DAILY@0800 JHOANA Administration Atorvastatin Calcium 40 mg 05/04/24 09:00 05/07/24 09:43 Atorvastatin 40 Mg Tablet PO 40 mg DAILY JHOANA Administration Dextrose 12.5 gm 05/04/24 01:34 Dextrose 50% 25 Gm/50 Ml Syringe IV PUSH PRN PRN Hypoglycemia Protocol Diphenhydramine HCl 12.5 mg 05/04/24 15:08 05/06/24 22:36 Diphenhydramine Hcl Elixir 12.5 Mg/5 Ml Udc PO 12.5 mg Q6H PRN Administration Itching Glucagon 1 mg 05/04/24 01:34 Glucagon For Inj 1 Mg Vial IM PRN PRN Hypoglycemia Protocol Glucose 15 gm 05/04/24 01:34 Glucose Oral Gel 15 Gm Of Glucse In 37.5 Gm Tube PO PRN PRN Hypoglycemia Protocol Guaifenesin/Dextromethorphan 10 ml 05/05/24 08:37 05/07/24 09:43 Guaifenesin/Dextromethorphan 10 Ml Udc PO 10 ml Q4H PRN Administration Cough Dextrose 1,000 mls @ 100 mls/hr 05/04/24 01:34 Dextrose 5% 1,000 Ml IVPB PRN PRN Hypoglycemia Protocol Piperacillin Sod/Tazobactam Sod 2.25 gm in 50 mls @ 100 mls/hr 05/04/24 12:00 05/07/24 12:08 Zosyn 2.25 Gm/Ns 50 Ml IVPB 100 mls/hr Q6H JHOANA Administration Linezolid 600 mg in 300 mls @ 300 mls/hr 05/04/24 10:35 05/07/24 09:46 Zyvox IVPB 300 mls/hr Q12HR JHOANA Administration Insulin Aspart 3 - 6 units 05/05/24 06:30 05/07/24 09:42 Insulin Aspart (*Bkc) 100 Units/Ml SUB-Q Not Given AC [facility] Protocol Insulin Glargine 15 units 05/08/24 09:00 Insulin Glargine (*Bkc) 100 Units/Ml SUB-Q DAILY [facility] Loratadine 10 mg 05/04/24 08:51 05/04/24 11:45 Loratadine 10 Mg Tablet PO 10 mg QAM PRN Administration itching Ondansetron HCl 4 mg 05/03/24 23:51 Ondansetron Inj 4 Mg/2 Ml Vial IV PUSH Q4H PRN Nausea Pantoprazole Sodium 40 mg 05/04/24 09:00 05/07/24 09:43 Pantoprazole Sodium Iv 40 Mg Vial IV PUSH 40 mg QAM JHOANA Administration Sodium Hypochlorite 1 applic 05/06/24 09:00 05/07/24 09:45 Sod Hypochlorite 1/4 Strength 473 Ml TOPICAL 1 applic Q12HR JHOANA Administration Triamcinolone Acetonide 1 applic 05/04/24 09:00 05/07/24 09:45 Triamcinolone Acet 0.1% Cream 80 Gm Tube TOPICAL 1 applic BID JHOANA Administration Radiology Results: ITS Impressions Head CT 05/03/24 20:56 IMPRESSION: Acute infarct involving a portion of the right MCA territory. Results reported telephonically to Dr. Duong by Dr. Langford at 9:01 PM on 05/03/2024. Cervical Spine CT 05/03/24 21:01 IMPRESSION: No acute fracture or traumatic malalignment in the cervical spine. Abdomen/Pelvis CT 05/03/24 21:06 IMPRESSION: No acute abdominopelvic process detected. Foot X-Ray 05/04/24 07:08 IMPRESSION: 1. Soft tissue gas in the plantar aspect of the heel. No evidence of osteomyelitis. Carotid Doppler Study 05/04/24 14:15 IMPRESSION: 1. <50% stenosis in the right internal carotid artery. 2. <50% stenosis in the left internal carotid artery. Renal Ultrasound 05/04/24 14:16 IMPRESSION: No definite abnormality. Chest X-Ray 05/05/24 06:38 IMPRESSION: 1. Cardiomegaly and pulmonary vascular congestion without parish pulmonary edema. Labs Labs: Laboratory Results - last 24 hr 05/05/24 05/06/24 05/06/24 04:13 16:36 20:02 WBC RBC Hgb Hct MCV MCH MCHC RDW Plt Count MPV Immature Gran % (Auto) Neut % (Auto) Lymph % (Auto) [place] % (Auto) Eos % (Auto) Baso % (Auto) Lymph # (Auto) [place] # (Auto) Eos # (Auto) Baso # (Auto) Abs Immat Gran (auto) Absolute Neuts (auto) Absolute Nucleated RBC Nucleated RBC % Sodium Potassium Chloride Carbon Dioxide Anion Gap BUN Creatinine Estim Creat Clear Calc Estimated GFR Glucose POC Capillary Glucose 261 H 233 H Calcium Phosphorus Magnesium Total Bilirubin AST ALT Alkaline Phosphatase Total Protein Albumin Hep B Core Total Ab Non-reactive 05/07/24 05/07/24 05/07/24 03:46 06:44 07:48 WBC 19.3 H RBC 2.59 L Hgb 8.4 L Hct 26.3 L MCV 101.5 H MCH 32.4 MCHC 31.9 L RDW 14.4 Plt Count 322 MPV 10.7 H Immature Gran % (Auto) 0.9 H Neut % (Auto) 86.2 H Lymph % (Auto) 6.2 L [place] % (Auto) 5.5 Eos % (Auto) 0.8 Baso % (Auto) 0.4 Lymph # (Auto) 1.19 [place] # (Auto) 1.1 H Eos # (Auto) 0.2 Baso # (Auto) 0.1 Abs Immat Gran (auto) 0.18 H Absolute Neuts (auto) 16.7 H Absolute Nucleated RBC 0.000 Nucleated RBC % 0.0 Sodium 137 Potassium 3.7 Chloride 103 Carbon Dioxide 27 Anion Gap 7 BUN 62 H Creatinine 2.90 H Estim Creat Clear Calc 33 Estimated GFR 22 L Glucose 249 H POC Capillary Glucose 230 H 231 H Calcium 8.7 Phosphorus 4.4 Magnesium 2.0 Total Bilirubin 0.8 AST 41 ALT 37 Alkaline Phosphatase 169 H Total Protein 7.0 Albumin 2.9 L Hep B Core Total Ab 05/07/24 11:30 WBC RBC Hgb Hct MCV MCH MCHC RDW Plt Count MPV Immature Gran % (Auto) Neut % (Auto) Lymph % (Auto) [place] % (Auto) Eos % (Auto) Baso % (Auto) Lymph # (Auto) [place] # (Auto) Eos # (Auto) Baso # (Auto) Abs Immat Gran (auto) Absolute Neuts (auto) Absolute Nucleated RBC Nucleated RBC % Sodium Potassium Chloride Carbon Dioxide Anion Gap BUN Creatinine Estim Creat Clear Calc Estimated GFR Glucose POC Capillary Glucose 292 H Calcium Phosphorus Magnesium Total Bilirubin AST ALT Alkaline Phosphatase Total Protein Albumin Hep B Core Total Ab
[2024-05-07] MEDS: INSULIN ASPART (*BKC) 100 UNITS/ML SUB-Q ×2 (13:51→17:22)
--- NOTE | 2024-05-07 13:53 | P.PN_ITS ---
Progress Note: A&P Assessment and Plan (1) Diabetic foot ulcer: Qualifiers: Diabetes mellitus type: type 2 Diabetic foot ulcer location: midfoot Laterality: right Non-pressure ulcer stage: with muscle involvement without evidence of necrosis Qualified Code(s): E11.621 - Type 2 diabetes mellitus with foot ulcer; L97.415 - Non-pressure chronic ulcer of right heel and midfoot with muscle involvement without evidence of necrosis Code(s): E11.621 - Type 2 diabetes mellitus with foot ulcer; L97.509 - Non-pressure chr onic ulcer of other part of unspecified foot with unspecified severity Status: Acute Assessment and Plan: Continue local wound care treatment with quarter strength Dakin solution to the bilateral heels and right forefoot ulcer wounds. Will look at them tomorrow when the nurses have not undressed. The right foot may not be salvageable given the extensive large wound around the calcaneus and the exposed bone and the 2nd wound in the plantar surface of the right forefoot with burrowing into the right 1st MTP joint. The left heel has a better chance of healing. For further discuss right BKA with the patient next week. We will get ABIs of the bilateral lower extremities to get a better idea of his blood flow to his feet. Subjective Date/time seen: 05/07/24 13:53 Interval history: Patient without acute changes. He did get up to a chair but had to be a Kiara lift because of his weakness. Nurses changed his bilateral heel and right forefoot dressings today already. Reports minimal amounts of serous drainage. No foul smelling pus drainage. Exam Extrem: Other: Bilateral feet dressed. No drainage through the things. No ascending redness of the lower leg. Objective Data Vital Signs Vital Signs: Vital Signs - 24 hr 05/06/24 14:00 05/06/24 14:32 05/06/24 14:40 Temperature Pulse Rate 80 80 80 Respiratory Rate 20 20 Blood Pressure Pulse Oximetry Oxygen Delivery Oxygen Flow Rate 05/06/24 15:45 05/06/24 16:00 05/06/24 16:00 Temperature 36.3 C L Pulse Rate 80 80 Respiratory Rate 20 Blood Pressure 113/72 Pulse Oximetry 100 100 Oxygen Delivery Nasal Cannula Oxygen Flow Rate 2 05/06/24 18:00 05/06/24 19:56 05/06/24 20:00 Temperature Pulse Rate 80 80 80 Respiratory Rate 20 20 Blood Pressure Pulse Oximetry 96 Oxygen Delivery Nasal Cannula Oxygen Flow Rate 2 05/06/24 20:10 05/06/24 20:14 05/06/24 23:33 Temperature 36.4 C 36.5 C Pulse Rate 78 80 98 Respiratory Rate 20 20 20 Blood Pressure 119/74 113/63 Pulse Oximetry 100 98 Oxygen Delivery Oxygen Flow Rate 05/06/24 20:00 05/06/24 22:00 05/07/24 00:00 Temperature Pulse Rate 80 80 80 Respiratory Rate Blood Pressure Pulse Oximetry Oxygen Delivery Oxygen Flow Rate 05/06/24 21:50 05/07/24 01:03 05/07/24 01:05 Temperature Pulse Rate 80 80 80 Respiratory Rate 20 20 20 Blood Pressure Pulse Oximetry 100 98 Oxygen Delivery Nasal Cannula Nasal Cannula Oxygen Flow Rate 2 2 05/07/24 01:14 05/07/24 03:46 05/07/24 00:00 Temperature 36.9 C Pulse Rate 80 80 98 Respiratory Rate 20 20 20 Blood Pressure 128/98 H Pulse Oximetry 98 98 Oxygen Delivery Nasal Cannula Oxygen Flow Rate 2 05/07/24 04:00 05/07/24 02:00 05/07/24 04:00 Temperature Pulse Rate 80 80 80 Respiratory Rate 20 Blood Pressure Pulse Oximetry 98 Oxygen Delivery Nasal Cannula Oxygen Flow Rate 1 05/07/24 06:00 05/07/24 00:30 05/07/24 08:00 Temperature 36.4 C L Pulse Rate 80 80 79 Respiratory Rate 20 24 H Blood Pressure 118/69 Pulse Oximetry 94 94 Oxygen Delivery Nasal Cannula Oxygen Flow Rate 1 05/07/24 07:45 05/07/24 09:22 05/07/24 08:00 Temperature Pulse Rate 83 81 81 Respiratory Rate 20 20 20 Blood Pressure Pulse Oximetry 98 Oxygen Delivery Nasal Cannula Oxygen Flow Rate 2 05/07/24 08:50 05/07/24 12:00 05/07/24 13:16 Temperature 36.4 C Pulse Rate 80 80 Respiratory Rate 16 20 Blood Pressure 102/63 Pulse Oximetry 97 Oxygen Delivery Nasal Cannula Oxygen Flow Rate 1 Intake/Output Intake/Output: Intake & Output 05/04/24 05/05/24 05/06/24 05/07/24 23:59 23:59 23:59 23:59 Intake Total 2768.3 3790 2175 650 Output Total 657 009 1697 Balance 2418.3 2990 900 650 Meds/Results Medications: Active Medications Generic Name Dose Route Start Last Admin Trade Name Freq PRN Reason Stop Dose Admin Acetaminophen 650 mg 05/05/24 13:04 05/07/24 09:43 Acetaminophen 325 Mg Tablet PO 650 mg Q6H PRN Administration Mild Pain (1-3) or Fever Albuterol/Ipratropium 3 ml 05/04/24 01:39 Ipratropium 0.5 Mg/Albuterol Sulfate 2.5 Mg Ampul.Neb 3 Ml INHALATION Q6HRT PRN shortness of breath or wheezing Albuterol/Ipratropium 3 ml 05/05/24 08:40 05/07/24 13:16 Ipratropium 0.5 Mg/Albuterol Sulfate 2.5 Mg Ampul.Neb 3 Ml INHALATION 3 ml Q6HRT JHOANA Administration Aspirin 325 mg 05/05/24 09:00 05/07/24 09:44 Aspirin 325 Mg Tablet PO 325 mg DAILY@0800 JHOANA Administration Atorvastatin Calcium 40 mg 05/04/24 09:00 05/07/24 09:43 Atorvastatin 40 Mg Tablet PO 40 mg DAILY JHOANA Administration Dextrose 12.5 gm 05/04/24 01:34 Dextrose 50% 25 Gm/50 Ml Syringe IV PUSH PRN PRN Hypoglycemia Protocol Diphenhydramine HCl 12.5 mg 05/04/24 15:08 05/06/24 22:36 Diphenhydramine Hcl Elixir 12.5 Mg/5 Ml Udc PO 12.5 mg Q6H PRN Administration Itching Glucagon 1 mg 05/04/24 01:34 Glucagon For Inj 1 Mg Vial IM PRN PRN Hypoglycemia Protocol Glucose 15 gm 05/04/24 01:34 Glucose Oral Gel 15 Gm Of Glucse In 37.5 Gm Tube PO PRN PRN Hypoglycemia Protocol Guaifenesin/Dextromethorphan 10 ml 05/05/24 08:37 05/07/24 09:43 Guaifenesin/Dextromethorphan 10 Ml Udc PO 10 ml Q4H PRN Administration Cough Dextrose 1,000 mls @ 100 mls/hr 05/04/24 01:34 Dextrose 5% 1,000 Ml IVPB PRN PRN Hypoglycemia Protocol Piperacillin Sod/Tazobactam Sod 2.25 gm in 50 mls @ 100 mls/hr 05/04/24 12:00 05/07/24 12:08 Zosyn 2.25 Gm/Ns 50 Ml IVPB 100 mls/hr Q6H JHOANA Administration Linezolid 600 mg in 300 mls @ 300 mls/hr 05/04/24 10:35 05/07/24 09:46 Zyvox IVPB 300 mls/hr Q12HR JHOANA Administration Insulin Aspart 3 - 6 units 05/05/24 06:30 05/07/24 13:51 Insulin Aspart (*Bkc) 100 Units/Ml SUB-Q 4 units AC JHOANA Administration Protocol Insulin Glargine 15 units 05/08/24 09:00 Insulin Glargine (*Bkc) 100 Units/Ml SUB-Q DAILY J[facility] Loratadine 10 mg 05/04/24 08:51 05/04/24 11:45 Loratadine 10 Mg Tablet PO 10 mg QAM PRN Administration itching Ondansetron HCl 4 mg 05/03/24 23:51 Ondansetron Inj 4 Mg/2 Ml Vial IV PUSH Q4H PRN Nausea Pantoprazole Sodium 40 mg 05/04/24 09:00 05/07/24 09:43 Pantoprazole Sodium Iv 40 Mg Vial IV PUSH 40 mg QAM JHOANA Administration Sodium Hypochlorite 1 applic 05/06/24 09:00 05/07/24 09:45 Sod Hypochlorite 1/4 Strength 473 Ml TOPICAL 1 applic Q12HR JHOANA Administration Triamcinolone Acetonide 1 applic 05/04/24 09:00 05/07/24 09:45 Triamcinolone Acet 0.1% Cream 80 Gm Tube TOPICAL 1 applic BID JHOANA Administration Radiology Results: ITS Impressions Head CT 05/03/24 20:56 IMPRESSION: Acute infarct involving a portion of the right MCA territory. Results reported telephonically to Dr. Duong by Dr. Langford at 9:01 PM on 05/03/2024. Cervical Spine CT 05/03/24 21:01 IMPRESSION: No acute fracture or traumatic malalignment in the cervical spine. Abdomen/Pelvis CT 05/03/24 21:06 IMPRESSION: No acute abdominopelvic process detected. Foot X-Ray 05/04/24 07:08 IMPRESSION: 1. Soft tissue gas in the plantar aspect of the heel. No evidence of osteomyelitis. Carotid Doppler Study 05/04/24 14:15 IMPRESSION: 1. <50% stenosis in the right internal carotid artery. 2. <50% stenosis in the left internal carotid artery. Renal Ultrasound 05/04/24 14:16 IMPRESSION: No definite abnormality. Chest X-Ray 05/05/24 06:38 IMPRESSION: 1. Cardiomegaly and pulmonary vascular congestion without parish pulmonary edema. Labs Labs: Laboratory Results - last 24 hr 05/05/24 05/06/24 05/06/24 04:13 16:36 20:02 WBC RBC Hgb Hct MCV MCH MCHC RDW Plt Count MPV Immature Gran % (Auto) Neut % (Auto) Lymph % (Auto) [place] % (Auto) Eos % (Auto) Baso % (Auto) Lymph # (Auto) [place] # (Auto) Eos # (Auto) Baso # (Auto) Abs Immat Gran (auto) Absolute Neuts (auto) Absolute Nucleated RBC Nucleated RBC % Sodium Potassium Chloride Carbon Dioxide Anion Gap BUN Creatinine Estim Creat Clear Calc Estimated GFR Glucose POC Capillary Glucose 261 H 233 H Calcium Phosphorus Magnesium Total Bilirubin AST ALT Alkaline Phosphatase Total Protein Albumin Hep B Core Total Ab Non-reactive 05/07/24 05/07/24 05/07/24 03:46 06:44 07:48 WBC 19.3 H RBC 2.59 L Hgb 8.4 L Hct 26.3 L MCV 101.5 H MCH 32.4 MCHC 31.9 L RDW 14.4 Plt Count 322 MPV 10.7 H Immature Gran % (Auto) 0.9 H Neut % (Auto) 86.2 H Lymph % (Auto) 6.2 L [place] % (Auto) 5.5 Eos % (Auto) 0.8 Baso % (Auto) 0.4 Lymph # (Auto) 1.19 [place] # (Auto) 1.1 H Eos # (Auto) 0.2 Baso # (Auto) 0.1 Abs Immat Gran (auto) 0.18 H Absolute Neuts (auto) 16.7 H Absolute Nucleated RBC 0.000 Nucleated RBC % 0.0 Sodium 137 Potassium 3.7 Chloride 103 Carbon Dioxide 27 Anion Gap 7 BUN 62 H Creatinine 2.90 H Estim Creat Clear Calc 33 Estimated GFR 22 L Glucose 249 H POC Capillary Glucose 230 H 231 H Calcium 8.7 Phosphorus 4.4 Magnesium 2.0 Total Bilirubin 0.8 AST 41 ALT 37 Alkaline Phosphatase 169 H Total Protein 7.0 Albumin 2.9 L Hep B Core Total Ab 05/07/24 11:30 WBC RBC Hgb Hct MCV MCH MCHC RDW Plt Count MPV Immature Gran % (Auto) Neut % (Auto) Lymph % (Auto) [place] % (Auto) Eos % (Auto) Baso % (Auto) Lymph # (Auto) [place] # (Auto) Eos # (Auto) Baso # (Auto) Abs Immat Gran (auto) Absolute Neuts (auto) Absolute Nucleated RBC Nucleated RBC % Sodium Potassium Chloride Carbon Dioxide Anion Gap BUN Creatinine Estim Creat Clear Calc Estimated GFR Glucose POC Capillary Glucose 292 H Calcium Phosphorus Magnesium Total Bilirubin AST ALT Alkaline Phosphatase Total Protein Albumin Hep B Core Total Ab
[2024-05-07 17:05] LABS: Glucose Point of Care 271 mg/dl (65-105)
[2024-05-07 21:19] LABS: Glucose Point of Care 284 mg/dl (65-105)
[2024-05-07] MEDS: diphenhydrAMINE HCL ELIXIR 12.5 MG/5 ML UDC PO (23:39)
[2024-05-08] VITALS (23 sets, daily range): BP systolic 127–155; BP diastolic 71–86; PULSE 78–83; RESP 16–24; TEMP 36.3–37.5; O2SAT 91–100
--- NOTE | 2024-05-08 | PCRCNOTE ---
Window of time for administration has passed. See next scheduled administration.
[2024-05-08] MEDS: IPRATROPIUM 0.5 MG/ALBUTEROL SULFATE 2.5 MG AMPUL.NEB 3 ML INHALATION ×4 (00:02→21:18)
[2024-05-08 04:21] LABS: Basophils Absolute Auto 0.1 K/mm3 (0.0-0.1); Basophils Percent Auto 0.4 % (0.2-1.2); Eosinophils Absolute Auto 0.2 K/mm3 (0-0.3); Eosinophils Percent Auto 0.9 % (0-4.4); Hematocrit 26.5 % (42.0-52.0); Hemoglobin 8.2 g/dL (14.0-18.0); Immature Granulocyte Absolute 0.14 K/mm3 (0.00-0.031); Immature Granulocyte Percent A 0.8 % (0-0.5); Lymphocytes Absolute Auto 1.21 K/mm3 (0.9-3.2); Lymphocytes Percent Auto 7.1 % (18.3-44.2); Mean Corpuscular HGB Conc 30.9 g/dl (32-36); Mean Corpuscular Hemoglobin 31.9 pg (26-34); Mean Corpuscular Volume 103.1 fl (80-100); Mean Platelet Volume 11.1 fl (7.4-10.4); Monocytes Absolute Auto 1.1 K/mm3 (0.1-0.6); Monocytes Percent Auto 6.2 % (2.6-8.5); Neutrophils Absolute Auto 14.4 K/mm3 (1.3-6.7); Neutrophils Percent Auto 84.6 % (45.5-73.1); Nucleated Red Blood Cells Perc 0.1 % (0.0-0.2); Platelet Count Result 333 k/mm3 (150-375); Red Blood Count 2.57 M/mm3 (4.6-6.20); Red Cell Distribution Width 14.4 % (11.5-14.5)
[2024-05-08 04:36] LABS: Alanine Aminotransferase 34 U/L (6-50); Alkaline Phosphatase 165 U/L (38-126); Anion Gap 8 mmol/L (4-12); Aspartate Amino Transferase 25 U/L (17-59); Bilirubin,Total 0.8 mg/dL (0.2-1.3); Blood Urea Nitrogen 55 mg/dL (9-20); Calcium 8.8 mg/dL (8.4-10.2); Carbon Dioxide 25 mmol/L (22-30); Chloride 102 mmol/L (98-107); Estimated CRCL calculation 37 ml/min; Estimated Glomerular Filt Rate 24; Glucose 307 mg/dL (65-110); Magnesium 1.8 mg/dL (1.6-2.3); Phosphorus 3.4 mg/dL (2.5-4.5); Potassium 3.8 mmol/L (3.4-5.0); Sodium 135 mmol/L (137-145)
[2024-05-08] MEDS: PIPERACILLIN/TAZ 2.25G/NS 50ML 2.25 GM/50 ML BAG IVPB ×4 (06:08→23:55)
[2024-05-08 07:05] LABS: Glucose Point of Care 286 mg/dl (65-105)
[2024-05-08] MEDS: LINEZOLID 600 MG/300 ML 600 MG/300 ML SOLN 300 MG IVPB ×2 (08:59→21:02)
[2024-05-08] MEDS: INSULIN GLARGINE (*BKC) 100 UNITS/ML 25 UNITS SUB-Q (09:00)
[2024-05-08] MEDS: PANTOPRAZOLE SODIUM IV 40 MG VIAL IV PUSH (09:00)
[2024-05-08] MEDS: INSULIN ASPART (*BKC) 100 UNITS/ML SUB-Q ×3 (09:01→17:45)
[2024-05-08] MEDS: ASPIRIN 325 MG TABLET PO (09:02)
[2024-05-08] MEDS: ATORVASTATIN 40 MG TABLET PO (09:02)
--- NOTE | 2024-05-08 09:09 | P.PNNP_ITS ---
Progress Note: A&P Assessment and Plan (1) Acute kidney injury: Code(s): N17.9 - Acute kidney failure, unspecified Status: Acute Assessment and Plan: * slow improvement * as noted by admission labs -- creatinine 3.40mg/dl * evaluation to date noted: * CT scan of the abdomen/pelvis did not show any hydronephrosis * renal ultrasound normal * urine electrolytes prerenal * urine eosinophils negative * CPK mildly elevated - follow trend * UA with 2+ protein and 1+ blood * suspect multifactorial etiology * hypotension/hemodynamic instability on admission * sepsis/infection (bacteremia) * rhabdomyolysis * element of disease progression (?) * Blood pressure is doing well * White cell count is down to 17,000. temperature is down to normal. * CK level never was really very high but is improving. * creatinine is a little bit better * urine output is good * Will check another number tomorrow (2) Stage 3a chronic kidney disease: Code(s): N18.31 - Chronic kidney disease, stage 3a Status: Chronic Assessment and Plan: * creatinine running ~ 1.3 - 1.4mg/dl (although last labs are from 2020) * presumably secondary to hypertension, diabetes, and vascular disease * cannot discount an element of CKD progression (since last labs available are from 3 years ago....) (3) Sepsis: Code(s): A41.9 - Sepsis, unspecified organism Status: Acute Assessment and Plan: * as noted on presentation with AMS, high fevers, lactic acidosis, and tachycardia * s/p aggressive IVF resuscitation * bicarb IVFs for acidosis * follow culture data * GPC noted on 05/03 blood cultures * repeat cultures are negative so far * on Zosyn and linezolid * seems to be responding to antibiotics (4) Acute CVA (cerebrovascular accident): Code(s): I63.9 - Cerebral infarction, unspecified Status: Acute Assessment and Plan: * presentation with AMS as well as facial droop + weakness * admission head CT showed acute infarct involving a portion of the right MCA territory * not a candidate for tPA as unclear when he was last at baseline * found on the floor - unclear duration as well * Neurology following (5) Diabetic foot ulcer: Qualifiers: Diabetes mellitus type: type 2 Diabetic foot ulcer location: midfoot Laterality: right Non-pressure ulcer stage: with muscle involvement without evidence of necrosis Qualified Code(s): E11.621 - Type 2 diabetes mellitus with foot ulcer; L97.415 - Non-pressure chronic ulcer of right heel and midfoot with muscle involvement without evidence of necrosis Code(s): E11.621 - Type 2 diabetes mellitus with foot ulcer; L97.509 - Non-pressure chronic ulcer of other part of unspecified foot with unspecified severity Status: Acute Assessment and Plan: * extensive LE wounds on feet and heels * left foot x-ray showed no evidence of osteomyelitis * right foot x-ray showed soft tissue gas in the plantar aspect of the heel, no evidence of osteomyelitis * Surgery following * s/p debridement in OR Thursday (6) Hypertension: Code(s): I10 - Essential (primary) hypertension Status: Acute Assessment and Plan: * known history * BP medications were on hold due to sepsis and hypotension on admission * off all blood pressure medicines. * Blood pressure is in the 150s this morning. * Will start low-dose amlodipine (7) Type 2 diabetes mellitus: Code(s): E11.9 - Type 2 diabetes mellitus without complications Status: Acute Assessment and Plan: * on accu-cheks * glycemic control per development technical lead/hospitalist Subjective Date/time seen: 05/08/24 09:09 Interval history: Patient is awake. Not very hungry. No shortness of breath or chest Exam Narrative: General: WD/WN male in NAD Heart: normal S1 and S2; no rub or gallop Lungs: clear anteriorly Abdomen: soft, nontender, nondistended, positive bowel sounds Extremities: 1+ bilateral edema Skin: dressings in place over bilateral feet/LEs Objective Data Vital Signs Vital Signs: Vital Signs - 24 hr 05/07/24 09:22 05/07/24 12:00 05/07/24 13:16 Temperature 97.6 F Pulse Rate 81 80 80 Respiratory Rate 20 16 20 Blood Pressure 102/63 Pulse Oximetry 98 97 Oxygen Delivery Nasal Cannula Oxygen Flow Rate 2 Fraction of Inspired Oxygen 05/07/24 10:00 05/07/24 12:00 05/07/24 14:00 Temperature Pulse Rate 80 80 80 Respiratory Rate Blood Pressure Pulse Oximetry Oxygen Delivery Oxygen Flow Rate Fraction of Inspired Oxygen 05/07/24 12:00 05/07/24 15:43 05/07/24 16:00 Temperature Pulse Rate 80 Respiratory Rate Blood Pressure Pulse Oximetry 95 96 Oxygen Delivery Room Air Room Air Oxygen Flow Rate Fraction of Inspired Oxygen 05/07/24 13:30 05/07/24 18:00 05/07/24 16:00 Temperature 97.9 F Pulse Rate 82 80 80 Respiratory Rate 20 28 H Blood Pressure 112/67 Pulse Oximetry 92 Oxygen Delivery Oxygen Flow Rate Fraction of Inspired Oxygen 05/07/24 20:19 05/07/24 23:51 05/08/24 00:05 Temperature 97.6 F 97.7 F Pulse Rate 80 80 80 Respiratory Rate 28 H 24 H 20 Blood Pressure 131/75 131/71 Pulse Oximetry 90 93 Oxygen Delivery Oxygen Flow Rate Fraction of Inspired Oxygen 05/08/24 00:06 05/07/24 21:40 05/08/24 00:10 Temperature Pulse Rate 80 80 Respiratory Rate 28 H 24 H Blood Pressure Pulse Oximetry 95 90 93 Oxygen Delivery Nasal Cannula Room Air Nasal Cannula Oxygen Flow Rate 1 1 Fraction of Inspired Oxygen 05/07/24 20:00 05/07/24 22:00 05/08/24 00:00 Temperature Pulse Rate 80 80 80 Respiratory Rate Blood Pressure Pulse Oximetry Oxygen Delivery Oxygen Flow Rate Fraction of Inspired Oxygen 05/08/24 01:30 05/08/24 04:08 05/08/24 04:00 Temperature 97.8 F Pulse Rate 80 80 80 Respiratory Rate 24 H 24 H Blood Pressure 152/77 H Pulse Oximetry 96 96 Oxygen Delivery Nasal Cannula Oxygen Flow Rate 1 Fraction of Inspired Oxygen 05/08/24 04:00 05/08/24 05:28 05/08/24 07:35 Temperature Pulse Rate 80 80 Respiratory Rate Blood Pressure Pulse Oximetry 91 Oxygen Delivery Room Air Oxygen Flow Rate Fraction of Inspired Oxygen 21 05/08/24 07:35 05/08/24 07:46 05/08/24 08:00 Temperature 99.5 F Pulse Rate 80 83 80 Respiratory Rate 20 24 H 16 Blood Pressure 155/84 H Pulse Oximetry 100 Oxygen Delivery Oxygen Flow Rate Fraction of Inspired Oxygen Intake/Output Intake/Output: Intake & Output 05/05/24 05/06/24 05/07/24 05/08/24 23:59 23:59 23:59 23:59 Intake Total 3790 2175 1600 850 Output Total 800 1275 500 550 Balance 2990 900 1100 300 Meds/Results Medications: Active Medications Generic Name Dose Route Start Last Admin Trade Name Freq PRN Reason Stop Dose Admin Acetaminophen 650 mg 05/05/24 13:04 05/07/24 09:43 Acetaminophen 325 Mg Tablet PO 650 mg Q6H PRN Administration Mild Pain (1-3) or Fever Albuterol/Ipratropium 3 ml 05/04/24 01:39 05/08/24 00:02 Ipratropium 0.5 Mg/Albuterol Sulfate 2.5 Mg Ampul.Neb 3 Ml INHALATION 3 ml Q6HRT PRN Administration shortness of breath or wheezing Albuterol/Ipratropium 3 ml 05/05/24 08:40 05/08/24 07:34 Ipratropium 0.5 Mg/Albuterol Sulfate 2.5 Mg Ampul.Neb 3 Ml INHALATION 3 ml Q6HRT JHOANA Administration Aspirin 325 mg 05/05/24 09:00 05/07/24 09:44 Aspirin 325 Mg Tablet PO 325 mg DAILY@0800 JHOANA Administration Atorvastatin Calcium 40 mg 05/04/24 09:00 05/07/24 09:43 Atorvastatin 40 Mg Tablet PO 40 mg DAILY JHOANA Administration Dextrose 12.5 gm 05/04/24 01:34 Dextrose 50% 25 Gm/50 Ml Syringe IV PUSH PRN PRN Hypoglycemia Protocol Diphenhydramine HCl 12.5 mg 05/04/24 15:08 05/07/24 23:39 Diphenhydramine Hcl Elixir 12.5 Mg/5 Ml Udc PO 12.5 mg Q6H PRN Administration Itching Glucagon 1 mg 05/04/24 01:34 Glucagon For Inj 1 Mg Vial IM PRN PRN Hypoglycemia Protocol Glucose 15 gm 05/04/24 01:34 Glucose Oral Gel 15 Gm Of Glucse In 37.5 Gm Tube PO PRN PRN Hypoglycemia Protocol Guaifenesin/Dextromethorphan 10 ml 05/05/24 08:37 05/07/24 23:39 Guaifenesin/Dextromethorphan 10 Ml Udc PO 10 ml Q4H PRN Administration Cough Dextrose 1,000 mls @ 100 mls/hr 05/04/24 01:34 Dextrose 5% 1,000 Ml IVPB PRN PRN Hypoglycemia Protocol Piperacillin Sod/Tazobactam Sod 2.25 gm in 50 mls @ 100 mls/hr 05/04/24 12:00 05/08/24 06:38 Zosyn 2.25 Gm/Ns 50 Ml IVPB Infused Q6H JHOANA Infusion Linezolid 600 mg in 300 mls @ 300 mls/hr 05/04/24 10:35 05/07/24 23:44 Zyvox IVPB Infused Q12HR JHOANA Infusion Insulin Aspart 3 - 6 units 05/08/24 08:00 Insulin Aspart (*Bkc) 100 Units/Ml SUB-Q TIDWM [facility] Protocol Insulin Glargine 25 units 05/08/24 09:00 Insulin Glargine (*Bkc) 100 Units/Ml SUB-Q DAILY JHOANA Loratadine 10 mg 05/04/24 08:51 05/04/24 11:45 Loratadine 10 Mg Tablet PO 10 mg QAM PRN Administration itching Ondansetron HCl 4 mg 05/03/24 23:51 Ondansetron Inj 4 Mg/2 Ml Vial IV PUSH Q4H PRN Nausea Pantoprazole Sodium 40 mg 05/04/24 09:00 05/07/24 09:43 Pantoprazole Sodium Iv 40 Mg Vial IV PUSH 40 mg QAM JHOANA Administration Sodium Hypochlorite 1 applic 05/06/24 09:00 05/07/24 22:50 Sod Hypochlorite 1/4 Strength 473 Ml TOPICAL 1 applic Q12HR JHOANA Administration Triamcinolone Acetonide 1 applic 05/04/24 09:00 05/07/24 17:23 Triamcinolone Acet 0.1% Cream 80 Gm Tube TOPICAL 1 applic BID JHOANA Administration Radiology Results: ITS Impressions Head CT 05/03/24 20:56 IMPRESSION: Acute infarct involving a portion of the right MCA territory. Results reported telephonically to Dr. Duong by Dr. Langford at 9:01 PM on 05/03/2024. Cervical Spine CT 05/03/24 21:01 IMPRESSION: No acute fracture or traumatic malalignment in the cervical spine. Abdomen/Pelvis CT 05/03/24 21:06 IMPRESSION: No acute abdominopelvic process detected. Foot X-Ray 05/04/24 07:08 IMPRESSION: 1. Soft tissue gas in the plantar aspect of the heel. No evidence of osteomyelitis. Carotid Doppler Study 05/04/24 14:15 IMPRESSION: 1. <50% stenosis in the right internal carotid artery. 2. <50% stenosis in the left internal carotid artery. Renal Ultrasound 05/04/24 14:16 IMPRESSION: No definite abnormality. Chest X-Ray 05/05/24 06:38 IMPRESSION: 1. Cardiomegaly and pulmonary vascular congestion without parish pulmonary edema. Ankle Brachial Index 05/08/24 06:55 IMPRESSION: 1. Decreased TBIs and normal ABIs, consistent with arterial occlusive disease. Note that ABIs may be overestimated if arteries are calcified. Labs Labs: Laboratory Results - last 24 hr 05/07/24 05/07/24 05/07/24 11:30 16:22 21:16 WBC RBC Hgb Hct MCV MCH MCHC RDW Plt Count MPV Immature Gran % (Auto) Neut % (Auto) Lymph % (Auto) Starr % (Auto) Eos % (Auto) Baso % (Auto) Lymph # (Auto) Starr # (Auto) Eos # (Auto) Baso # (Auto) Abs Immat Gran (auto) Absolute Neuts (auto) Absolute Nucleated RBC Nucleated RBC % Sodium Potassium Chloride Carbon Dioxide Anion Gap BUN Creatinine Estim Creat Clear Calc Estimated GFR Glucose POC Capillary Glucose 292 H 271 H 284 H Calcium Phosphorus Magnesium Total Bilirubin AST ALT Alkaline Phosphatase Total Protein Albumin 05/08/24 05/08/24 03:46 07:03 WBC 17.0 H RBC 2.57 L Hgb 8.2 L Hct 26.5 L MCV 103.1 H MCH 31.9 MCHC 30.9 L RDW 14.4 Plt Count 333 MPV 11.1 H Immature Gran % (Auto) 0.8 H Neut % (Auto) 84.6 H Lymph % (Auto) 7.1 L Starr % (Auto) 6.2 Eos % (Auto) 0.9 Baso % (Auto) 0.4 Lymph # (Auto) 1.21 Starr # (Auto) 1.1 H Eos # (Auto) 0.2 Baso # (Auto) 0.1 Abs Immat Gran (auto) 0.14 H Absolute Neuts (auto) 14.4 H Absolute Nucleated RBC 0.020 H Nucleated RBC % 0.1 Sodium 135 L Potassium 3.8 Chloride 102 Carbon Dioxide 25 Anion Gap 8 BUN 55 H Creatinine 2.70 H Estim Creat Clear Calc 37 Estimated GFR 24 L Glucose 307 H POC Capillary Glucose 286 H Calcium 8.8 Phosphorus 3.4 Magnesium 1.8 Total Bilirubin 0.8 AST 25 ALT 34 Alkaline Phosphatase 165 H Total Protein 7.0 Albumin 3.0 L
[2024-05-08] MEDS: amLODIPine BESYLATE 2.5 MG TABLET PO (12:08)
[2024-05-08 12:26] LABS: Glucose Point of Care 285 mg/dl (65-105)
--- NOTE | 2024-05-08 12:57 | P.PNIM_ITS ---
Progress Note: A&P Assessment and Plan (1) Acute CVA (cerebrovascular accident): Code(s): I63.9 - Cerebral infarction, unspecified Status: Acute Assessment and Plan: 05/03: Patient presented with altered mental status, noted to have some facial droop and weakness. - Head CT showed acute infarct involving a portion of the right MCA territory -patient not a candidate for tPA as last well known time is unavailable -patient was found on the floor, with altered mental status, has not been seen by anybody for approximately 10 days any spoke to a friend 2 days prior to coming to the ER. This is according to the records -continue statin, aspirin -appreciate Neurology evaluation -patient has a pacemaker so may not be a candidate for MRI line carotid ultrasound less than 50% narrowing on both sides Echocardiogram with left ventricular hypertrophy ejection fraction of 40-45%. (2) Sepsis: Code(s): A41.9 - Sepsis, unspecified organism Status: Acute Assessment and Plan: Patient presented with altered mental status, fevers of 105? F, elevated lactic acid of 5.3, tachycardia -patient was given 30 mL/kg IV fluid bolus -repeat lactic was 1.8 -mild elevation in troponin is likely related to ischemic demand as patient denies any chest pain, EKG did not show any ST elevations which showed paced rhythm Was treated with sodium bicarb switched to oral bicarb. Blood culture Gram-positive cocci in clusters. Identified as gemella morbillorum. Repeat blood culture had been obtained. On linezolid -discontinued cefepime and vancomycin And was switched to linezolid and Zosyn Did not require any pressors Wound culture with Staphylococcus aureus and Streptococcus constellatus. Continue current antibiotics (3) Diabetic foot ulcer: Qualifiers: Diabetes mellitus type: type 2 Diabetic foot ulcer location: midfoot Laterality: right Non-pressure ulcer stage: with muscle involvement without evidence of necrosis Qualified Code(s): E11.621 - Type 2 diabetes mellitus with foot ulcer; L97.415 - Non-pressure chronic ulcer of right heel and midfoot with muscle involvement without evidence of necrosis Code(s): E11.621 - Type 2 diabetes mellitus with foot ulcer; L97.509 - Non-pressure chronic ulcer of other part of unspecified foot with unspecified severity Status: Acute Assessment and Plan: Patient has bilateral diabetic foot ulcers -Left foot x-ray showed no evidence of osteomyelitis -Right foot x-ray showed soft tissue gas in the plantar aspect of the heel, no evidence of osteomyelitis -surgery has been consulted due to soft tissue gas and status post debridement 05/06/2024 Surgery planning potential right BKA (4) Type 2 diabetes mellitus: Code(s): E11.9 - Type 2 diabetes mellitus without complications Status: Acute Assessment and Plan: Continue Accu-Cheks, sliding scale insulin -hemoglobin A1c is 8.4% Adjust insulin as needed (5) Acute kidney injury: Code(s): N17.9 - Acute kidney failure, unspecified Status: Acute Assessment and Plan: 05/03: Patient presented with acute kidney injury on admission, creatinine of 3.40. (baseline creatinine is 0.90-1.40 in September 2020) -patient has a history of hypertension, diabetes, is on Lasix, valsartan carvedilol, diltiazem at home. Unknown how long he was hypotensive prior to coming to the hospital, could be related to infection, ATN -patient received 30 mL/kg IV fluid bolus Received IV fluids and also received albumin for volume expansion given that he has a history of heart failure -CK levels trending down -CT scan of the abdomen and pelvis did not show any hydronephrosis, renal ultrasound with no acute abnormality -nephrology has been has been consulted -monitor urine output, renal function electrolytes. Creatinine trending downwards -maintain mean arterial pressures greater than 65 at all times (6) Rhabdomyolysis: Qualifiers: Rhabdomyolysis type: non-traumatic Qualified Code(s): M62.82 - Rhabdomyolysis Code(s): M62.82 - Rhabdomyolysis Status: Acute Assessment and Plan: Patient rolled off his couch and was on the floor for unknown amount of time -elevated CK levels -CK levels trending down -continue sodium bicarb infusion (7) Parkinsons disease: Code(s): G20 - Parkinson's disease Status: Acute Assessment and Plan: History of Parkinson's disease (8) Hypertension: Code(s): I10 - Essential (primary) hypertension Status: Acute Assessment and Plan: History of essential hypertension -will hold all antihypertensives as patient has borderline blood pressures (9) Hyperlipidemia: Code(s): E78.5 - Hyperlipidemia, unspecified Status: Acute Assessment and Plan: Continue atorvastatin (10) Asthma: Code(s): J45.909 - Unspecified asthma, uncomplicated Status: Acute Assessment and Plan: Patient complaining of dry cough, wheezing, states he has a history of asthma and takes inhaler p.r.n. Patient on bronchodilator -added p.r.n. Robitussin Plan DVT prophylaxis: SCDs, no chemoprophylaxis due to acute stroke as there could be risk of hemorrhagic transformation Stress ulcer prophylaxis: Protonix Nutrition: Appreciate speech evaluation, on diabetic soft and bite size diet Bacteremia Code Status: Do not resuscitate Subjective Date/time seen: 05/08/24 12:57 Interval history: No Overnight events. Denies any new complaints. Remains afebrile. Off oxygen. Review of Systems Review of Systems: All systems reviewed & are unremarkable except as noted in HPI and below Exam Narrative: General: Pleasant gentleman in no acute distress sitting up on the bed HEENT:? Pupils equal and reactive, sclera is clear, dry oral mucosa Neck:? Supple Respiratory:? Clear to auscultation bilaterally, decreased at bases, adequate air entry Cardiac:? Paced rhythm Abdomen:? Soft, nontender, protuberant, nondistended, normoactive bowel sounds Extremities:? Bilateral lower feet in dressing, 1+ pitting edema, palpable pedal pulses Neuro:? Patient is awake, alert, oriented x3, able to move all extremities, strength 4/5 in bilateral upper extremity and 3/5 in bilateral lower extremity, sensations are diminished in the lower extremities Skin:? Chronic venous stasis changes on bilateral lower extremities, Psych:? Depressed affect Objective Data Vital Signs Vital Signs: Vital Signs - 24 hr 05/07/24 13:16 05/07/24 14:00 05/07/24 15:43 Temperature Pulse Rate 80 80 Respiratory Rate 20 Blood Pressure Pulse Oximetry 96 Oxygen Delivery Room Air Oxygen Flow Rate Fraction of Inspired Oxygen 05/07/24 16:00 05/07/24 13:30 05/07/24 18:00 Temperature Pulse Rate 80 82 80 Respiratory Rate 20 Blood Pressure Pulse Oximetry Oxygen Delivery Oxygen Flow Rate Fraction of Inspired Oxygen 05/07/24 16:00 05/07/24 20:19 05/07/24 23:51 Temperature 97.9 F 97.6 F 97.7 F Pulse Rate 80 80 80 Respiratory Rate 28 H 28 H 24 H Blood Pressure 112/67 131/75 131/71 Pulse Oximetry 92 90 93 Oxygen Delivery Oxygen Flow Rate Fraction of Inspired Oxygen 05/08/24 00:05 05/08/24 00:06 05/07/24 21:40 Temperature Pulse Rate 80 80 Respiratory Rate 20 28 H Blood Pressure Pulse Oximetry 95 90 Oxygen Delivery Nasal Cannula Room Air Oxygen Flow Rate 1 Fraction of Inspired Oxygen 05/08/24 00:10 05/07/24 20:00 05/07/24 22:00 Temperature Pulse Rate 80 80 80 Respiratory Rate 24 H Blood Pressure Pulse Oximetry 93 Oxygen Delivery Nasal Cannula Oxygen Flow Rate 1 Fraction of Inspired Oxygen 05/08/24 00:00 05/08/24 01:30 05/08/24 04:08 Temperature 97.8 F Pulse Rate 80 80 80 Respiratory Rate 24 H Blood Pressure 152/77 H Pulse Oximetry 96 Oxygen Delivery Oxygen Flow Rate Fraction of Inspired Oxygen 05/08/24 04:00 05/08/24 04:00 05/08/24 05:28 Temperature Pulse Rate 80 80 80 Respiratory Rate 24 H Blood Pressure Pulse Oximetry 96 Oxygen Delivery Nasal Cannula Oxygen Flow Rate 1 Fraction of Inspired Oxygen 05/08/24 07:35 05/08/24 07:35 05/08/24 07:46 Temperature Pulse Rate 80 83 Respiratory Rate 20 24 H Blood Pressure Pulse Oximetry 91 Oxygen Delivery Room Air Oxygen Flow Rate Fraction of Inspired Oxygen 21 05/08/24 08:00 05/08/24 10:15 05/08/24 08:00 Temperature 99.5 F Pulse Rate 80 80 Respiratory Rate 16 Blood Pressure 155/84 H Pulse Oximetry 100 Oxygen Delivery Room Air Oxygen Flow Rate Fraction of Inspired Oxygen 05/08/24 10:00 05/08/24 12:00 05/08/24 12:00 Temperature 98.2 F Pulse Rate 79 80 79 Respiratory Rate 24 H Blood Pressure 127/71 Pulse Oximetry 92 Oxygen Delivery Oxygen Flow Rate Fraction of Inspired Oxygen Intake/Output Intake/Output: Intake & Output 05/05/24 05/06/24 05/07/24 05/08/24 23:59 23:59 23:59 23:59 Intake Total 3790 2175 1600 850 Output Total 800 1275 500 550 Balance 2990 900 1100 300 Meds/Results Medications: Active Medications Generic Name Dose Route Start Last Admin Trade Name Freq PRN Reason Stop Dose Admin Acetaminophen 650 mg 05/05/24 13:04 05/07/24 09:43 Acetaminophen 325 Mg Tablet PO 650 mg Q6H PRN Administration Mild Pain (1-3) or Fever Albuterol/Ipratropium 3 ml 05/04/24 01:39 05/08/24 00:02 Ipratropium 0.5 Mg/Albuterol Sulfate 2.5 Mg Ampul.Neb 3 Ml INHALATION 3 ml Q6HRT PRN Administration shortness of breath or wheezing Albuterol/Ipratropium 3 ml 05/05/24 08:40 05/08/24 07:34 Ipratropium 0.5 Mg/Albuterol Sulfate 2.5 Mg Ampul.Neb 3 Ml INHALATION 3 ml Q6HRT JHOANA Administration Amlodipine Besylate 2.5 mg 05/08/24 09:15 05/08/24 12:08 Amlodipine Besylate 2.5 Mg Tablet PO 2.5 mg QAM JHOANA Administration Aspirin 325 mg 05/05/24 09:00 05/08/24 09:02 Aspirin 325 Mg Tablet PO 325 mg DAILY@0800 JHOANA Administration Atorvastatin Calcium 40 mg 05/04/24 09:00 05/08/24 09:02 Atorvastatin 40 Mg Tablet PO 40 mg DAILY JHOANA Administration Dextrose 12.5 gm 05/04/24 01:34 Dextrose 50% 25 Gm/50 Ml Syringe IV PUSH PRN PRN Hypoglycemia Protocol Diphenhydramine HCl 12.5 mg 05/04/24 15:08 05/07/24 23:39 Diphenhydramine Hcl Elixir 12.5 Mg/5 Ml Udc PO 12.5 mg Q6H PRN Administration Itching Glucagon 1 mg 05/04/24 01:34 Glucagon For Inj 1 Mg Vial IM PRN PRN Hypoglycemia Protocol Glucose 15 gm 05/04/24 01:34 Glucose Oral Gel 15 Gm Of Glucse In 37.5 Gm Tube PO PRN PRN Hypoglycemia Protocol Guaifenesin/Dextromethorphan 10 ml 05/05/24 08:37 05/07/24 23:39 Guaifenesin/Dextromethorphan 10 Ml Udc PO 10 ml Q4H PRN Administration Cough Dextrose 1,000 mls @ 100 mls/hr 05/04/24 01:34 Dextrose 5% 1,000 Ml IVPB PRN PRN Hypoglycemia Protocol Piperacillin Sod/Tazobactam Sod 2.25 gm in 50 mls @ 100 mls/hr 05/04/24 12:00 05/08/24 12:08 Zosyn 2.25 Gm/Ns 50 Ml IVPB 100 mls/hr Q6H JHOANA Administration Linezolid 600 mg in 300 mls @ 300 mls/hr 05/04/24 10:35 05/08/24 08:59 Zyvox IVPB 300 mls/hr Q12HR JHOANA Administration Insulin Aspart 3 - 6 units 05/08/24 08:00 05/08/24 12:12 Insulin Aspart (*Bkc) 100 Units/Ml SUB-Q 4 units TIDWM JHOANA Administration Protocol Insulin Glargine 25 units 05/08/24 09:00 05/08/24 09:00 Insulin Glargine (*Bkc) 100 Units/Ml SUB-Q 25 units DAILY JHOANA Administration Loratadine 10 mg 05/04/24 08:51 05/04/24 11:45 Loratadine 10 Mg Tablet PO 10 mg QAM PRN Administration itching Ondansetron HCl 4 mg 05/03/24 23:51 Ondansetron Inj 4 Mg/2 Ml Vial IV PUSH Q4H PRN Nausea Pantoprazole Sodium 40 mg 05/04/24 09:00 05/08/24 09:00 Pantoprazole Sodium Iv 40 Mg Vial IV PUSH 40 mg QAM JHOANA Administration Sodium Hypochlorite 1 applic 05/06/24 09:00 05/07/24 22:50 Sod Hypochlorite 1/4 Strength 473 Ml TOPICAL 1 applic Q12HR JHOANA Administration Triamcinolone Acetonide 1 applic 05/04/24 09:00 05/07/24 17:23 Triamcinolone Acet 0.1% Cream 80 Gm Tube TOPICAL 1 applic BID JHOANA Administration Radiology Results: ITS Impressions Head CT 05/03/24 20:56 IMPRESSION: Acute infarct involving a portion of the right MCA territory. Results reported telephonically to Dr. Duong by Dr. Langford at 9:01 PM on 05/03/2024. Cervical Spine CT 05/03/24 21:01 IMPRESSION: No acute fracture or traumatic malalignment in the cervical spine. Abdomen/Pelvis CT 05/03/24 21:06 IMPRESSION: No acute abdominopelvic process detected. Foot X-Ray 05/04/24 07:08 IMPRESSION: 1. Soft tissue gas in the plantar aspect of the heel. No evidence of osteomyelitis. Carotid Doppler Study 05/04/24 14:15 IMPRESSION: 1. <50% stenosis in the right internal carotid artery. 2. <50% stenosis in the left internal carotid artery. Renal Ultrasound 05/04/24 14:16 IMPRESSION: No definite abnormality. Chest X-Ray 05/05/24 06:38 IMPRESSION: 1. Cardiomegaly and pulmonary vascular congestion without parish pulmonary edema. Ankle Brachial Index 05/08/24 06:55 IMPRESSION: 1. Decreased TBIs and normal ABIs, consistent with arterial occlusive disease. Note that ABIs may be overestimated if arteries are calcified. Labs Labs: Laboratory Results - last 24 hr 05/07/24 05/07/24 05/08/24 16:22 21:16 03:46 WBC 17.0 H RBC 2.57 L Hgb 8.2 L Hct 26.5 L MCV 103.1 H MCH 31.9 MCHC 30.9 L RDW 14.4 Plt Count 333 MPV 11.1 H Immature Gran % (Auto) 0.8 H Neut % (Auto) 84.6 H Lymph % (Auto) 7.1 L [place] % (Auto) 6.2 Eos % (Auto) 0.9 Baso % (Auto) 0.4 Lymph # (Auto) 1.21 [place] # (Auto) 1.1 H Eos # (Auto) 0.2 Baso # (Auto) 0.1 Abs Immat Gran (auto) 0.14 H Absolute Neuts (auto) 14.4 H Absolute Nucleated RBC 0.020 H Nucleated RBC % 0.1 Sodium 135 L Potassium 3.8 Chloride 102 Carbon Dioxide 25 Anion Gap 8 BUN 55 H Creatinine 2.70 H Estim Creat Clear Calc 37 Estimated GFR 24 L Glucose 307 H POC Capillary Glucose 271 H 284 H Calcium 8.8 Phosphorus 3.4 Magnesium 1.8 Total Bilirubin 0.8 AST 25 ALT 34 Alkaline Phosphatase 165 H Total Protein 7.0 Albumin 3.0 L 05/08/24 05/08/24 07:03 11:45 WBC RBC Hgb Hct MCV MCH MCHC RDW Plt Count MPV Immature Gran % (Auto) Neut % (Auto) Lymph % (Auto) [place] % (Auto) Eos % (Auto) Baso % (Auto) Lymph # (Auto) [place] # (Auto) Eos # (Auto) Baso # (Auto) Abs Immat Gran (auto) Absolute Neuts (auto) Absolute Nucleated RBC Nucleated RBC % Sodium Potassium Chloride Carbon Dioxide Anion Gap BUN Creatinine Estim Creat Clear Calc Estimated GFR Glucose POC Capillary Glucose 286 H 285 H Calcium Phosphorus Magnesium Total Bilirubin AST ALT Alkaline Phosphatase Total Protein Albumin
[2024-05-08 15:55] LABS: Glucose Point of Care 250 mg/dl (65-105)
[2024-05-08] MEDS: SOD HYPOCHLORITE 1/4 STRENGTH 473 ML 1 APPLIC TOPICAL (17:40)
[2024-05-08] MEDS: TRIAMCINOLONE ACET 0.1% CREAM 80 GM TUBE 1 APPLIC TOPICAL (17:41)
--- NOTE | 2024-05-08 18:55 | P.PN_ITS ---
Progress Note: A&P Assessment and Plan (1) Diabetic foot ulcer: Qualifiers: Diabetes mellitus type: type 2 Diabetic foot ulcer location: midfoot Laterality: right Non-pressure ulcer stage: with muscle involvement without evidence of necrosis Qualified Code(s): E11.621 - Type 2 diabetes mellitus with foot ulcer; L97.415 - Non-pressure chronic ulcer of right heel and midfoot with muscle involvement without evidence of necrosis Code(s): E11.621 - Type 2 diabetes mellitus with foot ulcer; L97.509 - Non-pressure chr onic ulcer of other part of unspecified foot with unspecified severity Status: Acute Assessment and Plan: Discussed with pt that the right foot is not likely to be salvageable. He probably needs a right BKA. OSCAR Biat LE ordered for tomorrow. Possible right BKA later this coming week. For now continue current dressing changes and IV abx. Subjective Date/time seen: 05/08/24 18:55 Interval history: Pt is now POD 2 after debridement of right foot and right heel [place] [address] [place]. Wounds dressed with dakin's soln and gauze. Exam Extrem: Other: Bilateral heel wounds without purulent drainage or foul odor now. Right heel has a large portion of the heel bone exposed. Left heel wound with still tissue and periostium covering the heel. Right forefoot wound clean now without purulent drainage. No ascending cellulitis on feet. Objective Data Vital Signs Vital Signs: Vital Signs - 24 hr 05/07/24 20:19 05/07/24 23:51 05/08/24 00:05 Temperature 36.4 C 36.5 C Pulse Rate 80 80 80 Respiratory Rate 28 H 24 H 20 Blood Pressure 131/75 131/71 Pulse Oximetry 90 93 Oxygen Delivery Oxygen Flow Rate Fraction of Inspired Oxygen 05/08/24 00:06 05/07/24 21:40 05/08/24 00:10 Temperature Pulse Rate 80 80 Respiratory Rate 28 H 24 H Blood Pressure Pulse Oximetry 95 90 93 Oxygen Delivery Nasal Cannula Room Air Nasal Cannula Oxygen Flow Rate 1 1 Fraction of Inspired Oxygen 05/07/24 20:00 05/07/24 22:00 05/08/24 00:00 Temperature Pulse Rate 80 80 80 Respiratory Rate Blood Pressure Pulse Oximetry Oxygen Delivery Oxygen Flow Rate Fraction of Inspired Oxygen 05/08/24 01:30 05/08/24 04:08 05/08/24 04:00 Temperature 36.6 C Pulse Rate 80 80 80 Respiratory Rate 24 H 24 H Blood Pressure 152/77 H Pulse Oximetry 96 96 Oxygen Delivery Nasal Cannula Oxygen Flow Rate 1 Fraction of Inspired Oxygen 05/08/24 04:00 05/08/24 05:28 05/08/24 07:35 Temperature Pulse Rate 80 80 Respiratory Rate Blood Pressure Pulse Oximetry 91 Oxygen Delivery Room Air Oxygen Flow Rate Fraction of Inspired Oxygen 21 05/08/24 07:35 05/08/24 07:46 05/08/24 08:00 Temperature 37.5 C Pulse Rate 80 83 80 Respiratory Rate 20 24 H 16 Blood Pressure 155/84 H Pulse Oximetry 100 Oxygen Delivery Oxygen Flow Rate Fraction of Inspired Oxygen 05/08/24 10:15 05/08/24 08:00 05/08/24 10:00 Temperature Pulse Rate 80 79 Respiratory Rate Blood Pressure Pulse Oximetry Oxygen Delivery Room Air Oxygen Flow Rate Fraction of Inspired Oxygen 05/08/24 12:00 05/08/24 12:00 05/08/24 13:20 Temperature 36.8 C Pulse Rate 80 79 Respiratory Rate 24 H Blood Pressure 127/71 Pulse Oximetry 92 95 Oxygen Delivery Room Air Oxygen Flow Rate Fraction of Inspired Oxygen 21 05/08/24 13:20 05/08/24 13:29 05/08/24 14:00 Temperature Pulse Rate 80 82 80 Respiratory Rate 20 20 Blood Pressure Pulse Oximetry Oxygen Delivery Oxygen Flow Rate Fraction of Inspired Oxygen 05/08/24 16:00 05/08/24 16:00 Temperature 36.3 C L Pulse Rate 82 80 Respiratory Rate 24 H Blood Pressure 141/81 H Pulse Oximetry 94 Oxygen Delivery Oxygen Flow Rate Fraction of Inspired Oxygen Intake/Output Intake/Output: Intake & Output 05/05/24 05/06/24 05/07/24 05/08/24 23:59 23:59 23:59 23:59 Intake Total 3790 2175 1600 900 Output Total 800 1275 500 550 Balance 2990 900 1100 350 Meds/Results Medications: Active Medications Generic Name Dose Route Start Last Admin Trade Name Freq PRN Reason Stop Dose Admin Acetaminophen 650 mg 05/05/24 13:04 05/07/24 09:43 Acetaminophen 325 Mg Tablet PO 650 mg Q6H PRN Administration Mild Pain (1-3) or Fever Albuterol/Ipratropium 3 ml 11/27/24 01:39 05/08/24 00:02 Ipratropium 0.5 Mg/Albuterol Sulfate 2.5 Mg Ampul.Neb 3 Ml INHALATION 3 ml Q6HRT PRN Administration shortness of breath or wheezing Albuterol/Ipratropium 3 ml 05/05/24 08:40 05/08/24 13:20 Ipratropium 0.5 Mg/Albuterol Sulfate 2.5 Mg Ampul.Neb 3 Ml INHALATION 3 ml Q6HRT JHOANA Administration Amlodipine Besylate 2.5 mg 05/08/24 09:15 05/08/24 12:08 Amlodipine Besylate 2.5 Mg Tablet PO 2.5 mg QAM JHOANA Administration Aspirin 325 mg 05/05/24 09:00 05/08/24 09:02 Aspirin 325 Mg Tablet PO 325 mg DAILY@0800 JHOANA Administration Atorvastatin Calcium 40 mg 05/04/24 09:00 05/08/24 09:02 Atorvastatin 40 Mg Tablet PO 40 mg DAILY JHOANA Administration Dextrose 12.5 gm 05/04/24 01:34 Dextrose 50% 25 Gm/50 Ml Syringe IV PUSH PRN PRN Hypoglycemia Protocol Diphenhydramine HCl 12.5 mg 05/04/24 15:08 05/07/24 23:39 Diphenhydramine Hcl Elixir 12.5 Mg/5 Ml Udc PO 12.5 mg Q6H PRN Administration Itching Glucagon 1 mg 05/04/24 01:34 Glucagon For Inj 1 Mg Vial IM PRN PRN Hypoglycemia Protocol Glucose 15 gm 05/04/24 01:34 Glucose Oral Gel 15 Gm Of Glucse In 37.5 Gm Tube PO PRN PRN Hypoglycemia Protocol Guaifenesin/Dextromethorphan 10 ml 05/05/24 08:37 05/07/24 23:39 Guaifenesin/Dextromethorphan 10 Ml Udc PO 10 ml Q4H PRN Administration Cough Dextrose 1,000 mls @ 100 mls/hr 05/04/24 01:34 Dextrose 5% 1,000 Ml IVPB PRN PRN Hypoglycemia Protocol Piperacillin Sod/Tazobactam Sod 2.25 gm in 50 mls @ 100 mls/hr 05/04/24 12:00 05/08/24 17:41 Zosyn 2.25 Gm/Ns 50 Ml IVPB 100 mls/hr Q6H JHOANA Administration Linezolid 600 mg in 300 mls @ 300 mls/hr 05/04/24 10:35 05/08/24 08:59 Zyvox IVPB 300 mls/hr Q12HR JHOANA Administration Insulin Aspart 3 - 6 units 05/08/24 08:00 05/08/24 17:45 Insulin Aspart (*Bkc) 100 Units/Ml SUB-Q 3 units TIDWM JHOANA Administration Protocol Insulin Glargine 25 units 05/08/24 09:00 05/08/24 09:00 Insulin Glargine (*Bkc) 100 Units/Ml SUB-Q 25 units DAILY JHOANA Administration Loratadine 10 mg 05/04/24 08:51 05/04/24 11:45 Loratadine 10 Mg Tablet PO 10 mg QAM PRN Administration itching Ondansetron HCl 4 mg 05/03/24 23:51 Ondansetron Inj 4 Mg/2 Ml Vial IV PUSH Q4H PRN Nausea Pantoprazole Sodium 40 mg 05/04/24 09:00 05/08/24 09:00 Pantoprazole Sodium Iv 40 Mg Vial IV PUSH 40 mg QAM JHOANA Administration Sodium Hypochlorite 1 applic 05/06/24 09:00 05/08/24 17:40 Sod Hypochlorite 1/4 Strength 473 Ml TOPICAL 1 applic Q12HR JHOANA Administration Triamcinolone Acetonide 1 applic 05/04/24 09:00 05/08/24 17:48 Triamcinolone Acet 0.1% Cream 80 Gm Tube TOPICAL Not Given BID [facility] Radiology Results: ITS Impressions Head CT 05/03/24 20:56 IMPRESSION: Acute infarct involving a portion of the right MCA territory. Results reported telephonically to Dr. Duong by Dr. Langford at 9:01 PM on 05/03/2024. Cervical Spine CT 05/03/24 21:01 IMPRESSION: No acute fracture or traumatic malalignment in the cervical spine. Abdomen/Pelvis CT 05/03/24 21:06 IMPRESSION: No acute abdominopelvic process detected. Foot X-Ray 05/04/24 07:08 IMPRESSION: 1. Soft tissue gas in the plantar aspect of the heel. No evidence of osteomyelitis. Carotid Doppler Study 05/04/24 14:15 IMPRESSION: 1. <50% stenosis in the right internal carotid artery. 2. <50% stenosis in the left internal carotid artery. Renal Ultrasound 05/04/24 14:16 IMPRESSION: No definite abnormality. Chest X-Ray 05/05/24 06:38 IMPRESSION: 1. Cardiomegaly and pulmonary vascular congestion without parish pulmonary edema. Ankle Brachial Index 05/08/24 06:55 IMPRESSION: 1. Decreased TBIs and normal ABIs, consistent with arterial occlusive disease. Note that ABIs may be overestimated if arteries are calcified. Labs Labs: Laboratory Results - last 24 hr 05/07/24 05/08/24 05/08/24 21:16 03:46 07:03 WBC 17.0 H RBC 2.57 L Hgb 8.2 L Hct 26.5 L MCV 103.1 H MCH 31.9 MCHC 30.9 L RDW 14.4 Plt Count 333 MPV 11.1 H Immature Gran % (Auto) 0.8 H Neut % (Auto) 84.6 H Lymph % (Auto) 7.1 L [place] % (Auto) 6.2 Eos % (Auto) 0.9 Baso % (Auto) 0.4 Lymph # (Auto) 1.21 [place] # (Auto) 1.1 H Eos # (Auto) 0.2 Baso # (Auto) 0.1 Abs Immat Gran (auto) 0.14 H Absolute Neuts (auto) 14.4 H Absolute Nucleated RBC 0.020 H Nucleated RBC % 0.1 Sodium 135 L Potassium 3.8 Chloride 102 Carbon Dioxide 25 Anion Gap 8 BUN 55 H Creatinine 2.70 H Estim Creat Clear Calc 37 Estimated GFR 24 L Glucose 307 H POC Capillary Glucose 284 H 286 H Calcium 8.8 Phosphorus 3.4 Magnesium 1.8 Total Bilirubin 0.8 AST 25 ALT 34 Alkaline Phosphatase 165 H Total Protein 7.0 Albumin 3.0 L 05/08/24 05/08/24 11:45 15:21 WBC RBC Hgb Hct MCV MCH MCHC RDW Plt Count MPV Immature Gran % (Auto) Neut % (Auto) Lymph % (Auto) [place] % (Auto) Eos % (Auto) Baso % (Auto) Lymph # (Auto) [place] # (Auto) Eos # (Auto) Baso # (Auto) Abs Immat Gran (auto) Absolute Neuts (auto) Absolute Nucleated RBC Nucleated RBC % Sodium Potassium Chloride Carbon Dioxide Anion Gap BUN Creatinine Estim Creat Clear Calc Estimated GFR Glucose POC Capillary Glucose 285 H 250 H Calcium Phosphorus Magnesium Total Bilirubin AST ALT Alkaline Phosphatase Total Protein Albumin
[2024-05-08 20:30] LABS: Glucose Point of Care 218 mg/dl (65-105)
[2024-05-08] MEDS: ACETAMINOPHEN 325 MG TABLET 650 MG PO (20:56)
[2024-05-08] MEDS: guaiFENesin/DEXTROMETHORPHAN 10 ML UDC PO (20:57)
[2024-05-09] VITALS (21 sets, daily range): BP systolic 122–141; BP diastolic 59–97; PULSE 80; RESP 16–22; TEMP 36.3–36.6; O2SAT 95–98
[2024-05-09] MEDS: IPRATROPIUM 0.5 MG/ALBUTEROL SULFATE 2.5 MG AMPUL.NEB 3 ML INHALATION ×4 (02:30→21:19)
[2024-05-09 05:19] LABS: Basophils Absolute Auto 0.1 K/mm3 (0.0-0.1); Basophils Percent Auto 0.4 % (0.2-1.2); Eosinophils Absolute Auto 0.2 K/mm3 (0-0.3); Eosinophils Percent Auto 1.5 % (0-4.4); Hematocrit 26.8 % (42.0-52.0); Hemoglobin 9.3 g/dL (14.0-18.0); Immature Granulocyte Absolute 0.12 K/mm3 (0.00-0.031); Immature Granulocyte Percent A 0.8 % (0-0.5); Lymphocytes Percent Auto 9.6 % (18.3-44.2); Mean Corpuscular HGB Conc 34.7 g/dl (32-36); Mean Corpuscular Hemoglobin 35.6 pg (26-34); Mean Corpuscular Volume 102.7 fl (80-100); Mean Platelet Volume 10.9 fl (7.4-10.4); Monocytes Absolute Auto 1.1 K/mm3 (0.1-0.6); Monocytes Percent Auto 7.5 % (2.6-8.5); Neutrophils Absolute Auto 11.7 K/mm3 (1.3-6.7); Neutrophils Percent Auto 80.2 % (45.5-73.1); Platelet Count Result 350 k/mm3 (150-375); Red Blood Count 2.61 M/mm3 (4.6-6.20); Red Cell Distribution Width 14.3 % (11.5-14.5); White Blood Count 14.6 K/mm3 (4.5-10.0)
[2024-05-09 05:35] LABS: Alanine Aminotransferase 28 U/L (6-50); Albumin Level 3.1 g/dL (3.5-5.1); Alkaline Phosphatase 136 U/L (38-126); Anion Gap 7 mmol/L (4-12); Aspartate Amino Transferase 24 U/L (17-59); Bilirubin,Total 0.9 mg/dL (0.2-1.3); Blood Urea Nitrogen 47 mg/dL (9-20); Carbon Dioxide 28 mmol/L (22-30); Chloride 104 mmol/L (98-107); Estimated CRCL calculation 45 ml/min; Estimated Glomerular Filt Rate 30; Glucose 196 mg/dL (65-110); Magnesium 1.7 mg/dL (1.6-2.3); Phosphorus 3.4 mg/dL (2.5-4.5); Potassium 3.4 mmol/L (3.4-5.0); Sodium 139 mmol/L (137-145)
[2024-05-09] MEDS: PIPERACILLIN/TAZ 2.25G/NS 50ML 2.25 GM/50 ML BAG IVPB ×3 (06:16→17:01)
[2024-05-09 08:10] LABS: Glucose Point of Care 187 mg/dl (65-105)
[2024-05-09] MEDS: amLODIPine BESYLATE 2.5 MG TABLET PO (08:58)
[2024-05-09] MEDS: LINEZOLID 600 MG/300 ML 600 MG/300 ML SOLN 300 MG IVPB (08:58)
[2024-05-09] MEDS: ATORVASTATIN 40 MG TABLET PO (08:58)
[2024-05-09] MEDS: ASPIRIN 325 MG TABLET PO (08:58)
[2024-05-09] MEDS: INSULIN GLARGINE (*BKC) 100 UNITS/ML 25 UNITS SUB-Q (08:58)
[2024-05-09] MEDS: TRIAMCINOLONE ACET 0.1% CREAM 80 GM TUBE 1 APPLIC TOPICAL ×2 (09:00→17:00)
[2024-05-09] MEDS: PANTOPRAZOLE SODIUM IV 40 MG VIAL IV PUSH (09:14)
[2024-05-09] MEDS: guaiFENesin/DEXTROMETHORPHAN 10 ML UDC PO (09:14)
--- NOTE | 2024-05-09 09:54 | P.PNNP_ITS ---
Progress Note: A&P Assessment and Plan (1) Acute kidney injury: Code(s): N17.9 - Acute kidney failure, unspecified Status: Acute Assessment and Plan: * slow improvement * as noted by admission labs -- creatinine 3.40mg/dl * evaluation to date noted: * CT scan of the abdomen/pelvis did not show any hydronephrosis * renal ultrasound normal * urine electrolytes prerenal * urine eosinophils negative * CPK mildly elevated - follow trend * UA with 2+ protein and 1+ blood * suspect multifactorial etiology * hypotension/hemodynamic instability on admission * sepsis/infection (bacteremia) * rhabdomyolysis * element of disease progression (?) * making reasonable urine output * follow trend of repeat labs and UOP (2) Stage 3a chronic kidney disease: Code(s): N18.31 - Chronic kidney disease, stage 3a Status: Chronic Assessment and Plan: * creatinine running ~ 1.3 - 1.4mg/dl (although last labs done are from 2020) * presumably secondary to hypertension, diabetes, and vascular disease * cannot discount an element of CKD progression (since last labs available are f rom 3 years ago....) (3) Sepsis: Code(s): A41.9 - Sepsis, unspecified organism Status: Acute Assessment and Plan: * as noted on presentation with AMS, high fevers, lactic acidosis, and tachycardia * s/p aggressive IVF resuscitation * s/p bicarb IVFs for acidosis * follow culture data * 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 * repeat cultures are negative so far * wound cultures with Staphylococcus aureus and Streptococcus constellatus * on antibiotics * continue supportive therapy (4) Acute CVA (cerebrovascular accident): Code(s): I63.9 - Cerebral infarction, unspecified Status: Acute Assessment and Plan: * presentation with AMS as well as facial droop + weakness * admission head CT showed acute infarct involving a portion of the right MCA territory * not a candidate for tPA as unclear when he was last at baseline * found on the floor - unclear duration as well * Neurology following (5) Diabetic foot ulcer: Qualifiers: Diabetes mellitus type: type 2 Diabetic foot ulcer location: midfoot Laterality: right Non-pressure ulcer stage: with muscle involvement without evidence of necrosis Qualified Code(s): E11.621 - Type 2 diabetes mellitus with foot ulcer; L97.415 - Non-pressure chronic ulcer of right heel and midfoot with muscle involvement without evidence of necrosis Code(s): E11.621 - Type 2 diabetes mellitus with foot ulcer; L97.509 - Non-pressure chronic ulcer of other part of unspecified foot with unspecified severity Status: Acute Assessment and Plan: * extensive LE wounds on feet and heels * left foot x-ray showed no evidence of osteomyelitis * right foot x-ray showed soft tissue gas in the plantar aspect of the heel, no evidence of osteomyelitis * Surgery following * s/p debridement in OR on 05/06 * noted OSCAR results * may need further operative intervention (6) Hypertension: Code(s): I10 - Essential (primary) hypertension Status: Acute Assessment and Plan: * known history * BP medications were on hold due to sepsis and hypotension on admission * started on low dose amlodipine with better control * follow trend of hemodynamics (7) Type 2 diabetes mellitus: Code(s): E11.9 - Type 2 diabetes mellitus without complications Status: Acute Assessment and Plan: * on accu-cheks * glycemic control per hospitalist Will continue to follow. Subjective Date/time seen: 05/09/24 09:54 Interval history: Follow-up for acute kidney injury/acute renal failure on chronic kidney disease. Chart reviewed since last seen -- renal function/creatinine appear to be doing better in association with reasonable urine output; no apparent distress noted at the time of my visit; no events/issues overnight or earlier this morning. Exam Narrative: General: WD/WN male in NAD Heart: normal S1 and S2; no rub Lungs: clear anteriorly Abdomen: soft, nontender, nondistended, positive bowel sounds Extremities: no cyanosis or clubbing; 1+ bilateral edema Skin: dressings in place over bilateral feet/LEs Objective Data Vital Signs Vital Signs: Vital Signs Temp Pulse Resp BP Pulse Ox O2 Del Method O2 Flow Rate 05/09/24 09:32 80 20 05/09/24 09:25 80 20 05/09/24 09:25 80 97 Nasal Cannula 1 05/09/24 08:00 97.5 F L 80 20 135/59 L 95 05/09/24 06:00 80 05/09/24 04:00 80 05/09/24 04:00 97.6 F 80 16 141/78 H 96 05/09/24 04:10 96 Nasal Cannula 1 05/08/24 21:18 80 94 Nasal Cannula 1 05/09/24 02:36 80 20 05/09/24 02:30 80 20 05/09/24 02:00 80 05/09/24 00:00 97.5 F L 80 20 135/59 L 95 05/09/24 00:15 97 Nasal Cannula 1 05/09/24 00:00 80 05/08/24 20:40 96 Nasal Cannula 1 05/08/24 22:00 80 05/08/24 20:00 80 05/08/24 21:26 80 20 05/08/24 21:18 80 20 05/08/24 19:57 97.7 F 78 22 H 151/86 H 94 05/08/24 16:00 97.4 F L 80 24 H 141/81 H 94 05/08/24 16:00 82 05/08/24 14:00 80 05/08/24 13:29 82 20 05/08/24 13:20 80 20 05/08/24 13:20 95 Room Air 05/08/24 12:00 98.2 F 79 24 H 127/71 92 05/08/24 12:00 80 Intake/Output Intake/Output: Intake & Output 05/06/24 05/07/24 05/08/24 05/09/24 23:59 23:59 23:59 23:59 Intake Total 2175 1600 2090 100 Output Total 7047 270 1543 350 Balance 900 1100 1040 -250 Meds/Results Medications: Active Medications Generic Name Dose Route Start Last Admin Trade Name Freq PRN Reason Stop Dose Admin Acetaminophen 650 mg 05/05/24 13:04 05/08/24 20:56 Acetaminophen 325 Mg Tablet PO 650 mg Q6H PRN Administration Mild Pain (1-3) or Fever Albuterol/Ipratropium 3 ml 05/04/24 01:39 05/08/24 00:02 Ipratropium 0.5 Mg/Albuterol Sulfate 2.5 Mg Ampul.Neb 3 Ml INHALATION 3 ml Q6HRT PRN Administration shortness of breath or wheezing Albuterol/Ipratropium 3 ml 05/05/24 08:40 05/09/24 09:23 Ipratropium 0.5 Mg/Albuterol Sulfate 2.5 Mg Ampul.Neb 3 Ml INHALATION 3 ml Q6HRT JHOANA Administration Amlodipine Besylate 2.5 mg 05/08/24 09:15 05/09/24 08:58 Amlodipine Besylate 2.5 Mg Tablet PO 2.5 mg QAM JHOANA Administration Aspirin 325 mg 05/05/24 09:00 05/09/24 08:58 Aspirin 325 Mg Tablet PO 325 mg DAILY@0800 JHOANA Administration Atorvastatin Calcium 40 mg 05/04/24 09:00 05/09/24 08:58 Atorvastatin 40 Mg Tablet PO 40 mg DAILY JHOANA Administration Dextrose 12.5 gm 05/04/24 01:34 Dextrose 50% 25 Gm/50 Ml Syringe IV PUSH PRN PRN Hypoglycemia Protocol Diphenhydramine HCl 12.5 mg 05/04/24 15:08 05/07/24 23:39 Diphenhydramine Hcl Elixir 12.5 Mg/5 Ml Udc PO 12.5 mg Q6H PRN Administration Itching Glucagon 1 mg 05/04/24 01:34 Glucagon For Inj 1 Mg Vial IM PRN PRN Hypoglycemia Protocol Glucose 15 gm 05/04/24 01:34 Glucose Oral Gel 15 Gm Of Glucse In 37.5 Gm Tube PO PRN PRN Hypoglycemia Protocol Guaifenesin/Dextromethorphan 10 ml 05/05/24 08:37 05/09/24 09:14 Guaifenesin/Dextromethorphan 10 Ml Udc PO 10 ml Q4H PRN Administration Cough Dextrose 1,000 mls @ 100 mls/hr 05/04/24 01:34 Dextrose 5% 1,000 Ml IVPB PRN PRN Hypoglycemia Protocol Piperacillin Sod/Tazobactam Sod 2.25 gm in 50 mls @ 100 mls/hr 05/04/24 12:00 05/09/24 06:48 Zosyn 2.25 Gm/Ns 50 Ml IVPB Infused Q6H JHOANA Infusion Linezolid 600 mg in 300 mls @ 300 mls/hr 05/04/24 10:35 05/09/24 08:58 Zyvox IVPB 300 mls/hr Q12HR JHOANA Administration Insulin Aspart 3 - 6 units 05/08/24 08:00 05/09/24 08:49 Insulin Aspart (*Bkc) 100 Units/Ml SUB-Q Not Given TIDWM [facility] Protocol Insulin Glargine 25 units 05/08/24 09:00 05/09/24 08:58 Insulin Glargine (*Bkc) 100 Units/Ml SUB-Q 25 units DAILY JHOANA Administration Loratadine 10 mg 05/04/24 08:51 05/04/24 11:45 Loratadine 10 Mg Tablet PO 10 mg QAM PRN Administration itching Ondansetron HCl 4 mg 05/03/24 23:51 Ondansetron Inj 4 Mg/2 Ml Vial IV PUSH Q4H PRN Nausea Pantoprazole Sodium 40 mg 05/04/24 09:00 05/09/24 09:14 Pantoprazole Sodium Iv 40 Mg Vial IV PUSH 40 mg QAM JHOANA Administration Sodium Hypochlorite 1 applic 05/06/24 09:00 05/08/24 20:41 Sod Hypochlorite 1/4 Strength 473 Ml TOPICAL Not Given Q12HR JHOANA Triamcinolone Acetonide 1 applic 05/04/24 09:00 05/09/24 09:00 Triamcinolone Acet 0.1% Cream 80 Gm Tube TOPICAL 1 applic BID JHOANA Administration Radiology Results: ITS Impressions Head CT 05/03/24 20:56 IMPRESSION: Acute infarct involving a portion of the right MCA territory. Results reported telephonically to Dr. Duong by Dr. Langford at 9:01 PM on 05/03/2024. Cervical Spine CT 05/03/24 21:01 IMPRESSION: No acute fracture or traumatic malalignment in the cervical spine. Abdomen/Pelvis CT 05/03/24 21:06 IMPRESSION: No acute abdominopelvic process detected. Foot X-Ray 05/04/24 07:08 IMPRESSION: 1. Soft tissue gas in the plantar aspect of the heel. No evidence of osteomyelitis. Carotid Doppler Study 05/04/24 14:15 IMPRESSION: 1. <50% stenosis in the right internal carotid artery. 2. <50% stenosis in the left internal carotid artery. Renal Ultrasound 05/04/24 14:16 IMPRESSION: No definite abnormality. Chest X-Ray 05/05/24 06:38 IMPRESSION: 1. Cardiomegaly and pulmonary vascular congestion without parish pulmonary edema. Ankle Brachial Index 05/08/24 06:55 IMPRESSION: 1. Decreased TBIs and normal ABIs, consistent with arterial occlusive disease. Note that ABIs may be overestimated if arteries are calcified. Labs Labs: Laboratory Tests 05/09/24 03:48 05/09/24 03:48 Calcium 9.0 Phosphorus 3.4 Magnesium 1.7 Total Bilirubin 0.9 AST 24 ALT 28 Alkaline Phosphatase 136 H Total Protein 7.0 Albumin 3.1 L Microbiology 05/03/24 19:45 Blood Blood Culture - Final Gemella morbillorum 05/03/24 19:47 Blood Blood Culture - Final Gemella morbillorum 05/06/24 08:11 Foot Right Anaerobic Culture - Preliminary 05/06/24 08:11 Foot Right Aerobic Culture - Preliminary Staphylococcus aureus Streptococcus constellatus
[2024-05-09] MEDS: INSULIN ASPART (*BKC) 100 UNITS/ML SUB-Q ×2 (12:17→17:00)
[2024-05-09 12:30] LABS: Glucose Point of Care 248 mg/dl (65-105)
--- NOTE | 2024-05-09 12:32 | PCNFU ---
Nutrition Follow-Up Complete: Swallowing Difficulties as related to Acute CVA as evidenced by NPO Goal:Meet estimated nutritional needs. Pt progressing towards goal. Continue with same goal Pt current nutrition is Diabetic soft and bite sized level 6, Glucerna shakes BID. Nutrition recommendation: continue with current plan of care Last recorded weight is 134.7 kg. Bowel Motility: +BM 05/07 Labs Reviewed: Hgb:9.3, HCT:26.8, Alb:3.1, GFR:30, BUN:47, Cr:2.2, Glu:196 Meds Noted: insulin, zofran, protonix Skin: DM ulcers and vasculare wounds, no pressure injuries Additional Notes: Pt continues on a soft and bite sized level 6, diabetic diet, intake varied 0-50%, Glucerna shakes added BID. Agree with orders. Encourage intake. Will monitor weight, labs, skin, meds, diet orders every 5 days.
--- NOTE | 2024-05-09 12:36 | PM.IMPN ---
Progress Note: A&P Assessment and Plan (1) Acute CVA (cerebrovascular accident): Code(s): I63.9 - Cerebral infarction, unspecified Status: Acute Assessment and Plan: 05/03: Patient presented with altered mental status, noted to have some facial droop and weakness. - Head CT showed acute infarct involving a portion of the right MCA territory -patient not a candidate for tPA as last well known time is unavailable -patient was found on the floor, with altered mental status, has not been seen by anybody for approximately 10 days any spoke to a friend 2 days prior to coming to the ER. This is according to the records -continue statin, aspirin -appreciate Neurology evaluation -patient has a pacemaker so may not be a candidate for MRI line carotid ultrasound less than 50% narrowing on both sides Echocardiogram with left ventricular hypertrophy ejection fraction of 40-45%. (2) Sepsis: Code(s): A41.9 - Sepsis, unspecified organism Status: Acute Assessment and Plan: Patient presented with altered mental status, fevers of 105? F, elevated lactic acid of 5.3, tachycardia -patient was given 30 mL/kg IV fluid bolus -repeat lactic was 1.8 -mild elevation in troponin is likely related to ischemic demand as patient denies any chest pain, EKG did not show any ST elevations which showed paced rhythm Was treated with sodium bicarb switched to oral bicarb. Blood culture Gram-positive cocci in clusters. Identified as gemella morbillorum. Repeat blood culture had been obtained. On linezolid -discontinued cefepime and vancomycin And was switched to linezolid and Zosyn Did not require any pressors Wound culture with Staphylococcus aureus and Streptococcus constellatus. Continue current antibiotics. Switch linezolid to oral (3) Diabetic foot ulcer: Qualifiers: Diabetes mellitus type: type 2 Diabetic foot ulcer location: midfoot Laterality: right Non-pressure ulcer stage: with muscle involvement without evidence of necrosis Qualified Code(s): E11.621 - Type 2 diabetes mellitus with foot ulcer; L97.415 - Non-pressure chronic ulcer of right heel and midfoot with muscle involvement without evidence of necrosis Code(s): E11.621 - Type 2 diabetes mellitus with foot ulcer; L97.509 - Non-pressure chronic ulcer of other part of unspecified foot with unspecified severity Status: Acute Assessment and Plan: Patient has bilateral diabetic foot ulcers -Left foot x-ray showed no evidence of osteomyelitis -Right foot x-ray showed soft tissue gas in the plantar aspect of the heel, no evidence of osteomyelitis -surgery has been consulted due to soft tissue gas and status post debridement 05/06/2024 Surgery planning potential right BKA (4) Type 2 diabetes mellitus: Code(s): E11.9 - Type 2 diabetes mellitus without complications Status: Acute Assessment and Plan: Continue Accu-Cheks, sliding scale insulin -hemoglobin A1c is 8.4% Adjust insulin as needed (5) Acute kidney injury: Code(s): N17.9 - Acute kidney failure, unspecified Status: Acute Assessment and Plan: 05/03: Patient presented with acute kidney injury on admission, creatinine of 3.40. (baseline creatinine is 0.90-1.40 in September 2020) -patient has a history of hypertension, diabetes, is on Lasix, valsartan carvedilol, diltiazem at home. Unknown how long he was hypotensive prior to coming to the hospital, could be related to infection, ATN -patient received 30 mL/kg IV fluid bolus Received IV fluids and also received albumin for volume expansion given that he has a history of heart failure -CK levels trending down -CT scan of the abdomen and pelvis did not show any hydronephrosis, renal ultrasound with no acute abnormality -nephrology has been has been consulted -monitor urine output, renal function electrolytes. Creatinine trending downwards -maintain mean arterial pressures greater than 65 at all times (6) Rhabdomyolysis: Qualifiers: Rhabdomyolysis type: non-traumatic Qualified Code(s): M62.82 - Rhabdomyolysis Code(s): M62.82 - Rhabdomyolysis Status: Acute Assessment and Plan: Patient rolled off his couch and was on the floor for unknown amount of time -elevated CK levels -CK levels trending down -continue sodium bicarb infusion (7) Parkinsons disease: Code(s): G20 - Parkinson's disease Status: Acute Assessment and Plan: History of Parkinson's disease (8) Hypertension: Code(s): I10 - Essential (primary) hypertension Status: Acute Assessment and Plan: History of essential hypertension -will hold all antihypertensives as patient has borderline blood pressures (9) Hyperlipidemia: Code(s): E78.5 - Hyperlipidemia, unspecified Status: Acute Assessment and Plan: Continue atorvastatin (10) Asthma: Code(s): J45.909 - Unspecified asthma, uncomplicated Status: Acute Assessment and Plan: Patient complaining of dry cough, wheezing, states he has a history of asthma and takes inhaler p.r.n. Patient on bronchodilator -added p.r.n. Robitussin Plan DVT prophylaxis: SCDs, no chemoprophylaxis due to acute stroke as there could be risk of hemorrhagic transformation Stress ulcer prophylaxis: Protonix Nutrition: Appreciate speech evaluation, on diabetic soft and bite size diet Bacteremia Code Status: Do not resuscitate Subjective Date/time seen: 05/09/24 12:36 Interval history: No overnight events. Feeling okay. Labs reviewed. Blood sugar trend reviewed. Review of Systems Review of Systems: All systems reviewed & are unremarkable except as noted in HPI and below Exam Narrative: General: Pleasant gentleman in no acute distress sitting up on the bed HEENT:? Pupils equal and reactive, sclera is clear, dry oral mucosa Neck:? Supple Respiratory:? Clear to auscultation bilaterally, decreased at bases, adequate air entry Cardiac:? Paced rhythm Abdomen:? Soft, nontender, protuberant, nondistended, normoactive bowel sounds Extremities:? Bilateral lower feet in dressing, 1+ pitting edema, palpable pedal pulses Neuro:? Patient is awake, alert, oriented x3, able to move all extremities, strength 4/5 in bilateral upper extremity and 3/5 in bilateral lower extremity, sensations are diminished in the lower extremities Skin:? Chronic venous stasis changes on bilateral lower extremities, Psych:? Depressed affect Objective Data Vital Signs Vital Signs: Vital Signs - 24 hr 05/08/24 13:20 05/08/24 13:20 05/08/24 13:29 Temperature Pulse Rate 80 82 Respiratory Rate 20 20 Blood Pressure Pulse Oximetry 95 Oxygen Delivery Room Air Oxygen Flow Rate Fraction of Inspired Oxygen 21 05/08/24 14:00 05/08/24 16:00 05/08/24 16:00 Temperature 97.4 F L Pulse Rate 80 82 80 Respiratory Rate 24 H Blood Pressure 141/81 H Pulse Oximetry 94 Oxygen Delivery Oxygen Flow Rate Fraction of Inspired Oxygen 05/08/24 19:57 05/08/24 21:18 05/08/24 21:26 Temperature 97.7 F Pulse Rate 78 80 80 Respiratory Rate 22 H 20 20 Blood Pressure 151/86 H Pulse Oximetry 94 Oxygen Delivery Oxygen Flow Rate Fraction of Inspired Oxygen 05/08/24 20:00 05/08/24 22:00 05/08/24 20:40 Temperature Pulse Rate 80 80 Respiratory Rate Blood Pressure Pulse Oximetry 96 Oxygen Delivery Nasal Cannula Oxygen Flow Rate 1 Fraction of Inspired Oxygen 05/09/24 00:00 05/09/24 00:15 05/09/24 00:00 Temperature 97.5 F L Pulse Rate 80 80 Respiratory Rate 20 Blood Pressure 135/59 L Pulse Oximetry 97 95 Oxygen Delivery Nasal Cannula Oxygen Flow Rate 1 Fraction of Inspired Oxygen 05/09/24 02:00 05/09/24 02:30 05/09/24 02:36 Temperature Pulse Rate 80 80 80 Respiratory Rate 20 20 Blood Pressure Pulse Oximetry Oxygen Delivery Oxygen Flow Rate Fraction of Inspired Oxygen 05/08/24 21:18 05/09/24 04:10 05/09/24 04:00 Temperature 97.6 F Pulse Rate 80 80 Respiratory Rate 16 Blood Pressure 141/78 H Pulse Oximetry 94 96 96 Oxygen Delivery Nasal Cannula Nasal Cannula Oxygen Flow Rate 1 1 Fraction of Inspired Oxygen 05/09/24 04:00 05/09/24 06:00 05/09/24 08:00 Temperature 97.5 F L Pulse Rate 80 80 80 Respiratory Rate 20 Blood Pressure 135/59 L Pulse Oximetry 95 Oxygen Delivery Oxygen Flow Rate Fraction of Inspired Oxygen 05/09/24 09:25 05/09/24 09:25 05/09/24 09:32 Temperature Pulse Rate 80 80 80 Respiratory Rate 20 20 Blood Pressure Pulse Oximetry 97 Oxygen Delivery Nasal Cannula Oxygen Flow Rate 1 Fraction of Inspired Oxygen Intake/Output Intake/Output: Intake & Output 05/06/24 05/07/24 05/08/24 05/09/24 23:59 23:59 23:59 23:59 Intake Total 2175 1600 2090 100 Output Total 7435 067 7266 350 Balance 900 1100 1040 -250 Meds/Results Medications: Active Medications Generic Name Dose Route Start Last Admin Trade Name Freq PRN Reason Stop Dose Admin Acetaminophen 650 mg 05/05/24 13:04 05/08/24 20:56 Acetaminophen 325 Mg Tablet PO 650 mg Q6H PRN Administration Mild Pain (1-3) or Fever Albuterol/Ipratropium 3 ml 05/04/24 01:39 05/08/24 00:02 Ipratropium 0.5 Mg/Albuterol Sulfate 2.5 Mg Ampul.Neb 3 Ml INHALATION 3 ml Q6HRT PRN Administration shortness of breath or wheezing Albuterol/Ipratropium 3 ml 05/05/24 08:40 05/09/24 09:23 Ipratropium 0.5 Mg/Albuterol Sulfate 2.5 Mg Ampul.Neb 3 Ml INHALATION 3 ml Q6HRT JHOANA Administration Amlodipine Besylate 2.5 mg 05/08/24 09:15 05/09/24 08:58 Amlodipine Besylate 2.5 Mg Tablet PO 2.5 mg QAM JHOANA Administration Aspirin 325 mg 05/05/24 09:00 05/09/24 08:58 Aspirin 325 Mg Tablet PO 325 mg DAILY@0800 JHOANA Administration Atorvastatin Calcium 40 mg 05/04/24 09:00 05/09/24 08:58 Atorvastatin 40 Mg Tablet PO 40 mg DAILY JHOANA Administration Dextrose 12.5 gm 05/04/24 01:34 Dextrose 50% 25 Gm/50 Ml Syringe IV PUSH PRN PRN Hypoglycemia Protocol Diphenhydramine HCl 12.5 mg 05/04/24 15:08 05/07/24 23:39 Diphenhydramine Hcl Elixir 12.5 Mg/5 Ml Udc PO 12.5 mg Q6H PRN Administration Itching Glucagon 1 mg 05/04/24 01:34 Glucagon For Inj 1 Mg Vial IM PRN PRN Hypoglycemia Protocol Glucose 15 gm 05/04/24 01:34 Glucose Oral Gel 15 Gm Of Glucse In 37.5 Gm Tube PO PRN PRN Hypoglycemia Protocol Guaifenesin/Dextromethorphan 10 ml 05/05/24 08:37 05/09/24 09:14 Guaifenesin/Dextromethorphan 10 Ml Udc PO 10 ml Q4H PRN Administration Cough Dextrose 1,000 mls @ 100 mls/hr 05/04/24 01:34 Dextrose 5% 1,000 Ml IVPB PRN PRN Hypoglycemia Protocol Piperacillin Sod/Tazobactam Sod 2.25 gm in 50 mls @ 100 mls/hr 05/04/24 12:00 05/09/24 12:17 Zosyn 2.25 Gm/Ns 50 Ml IVPB 200 mls/hr Q6H JHOANA Administration Insulin Aspart 3 - 6 units 05/08/24 08:00 05/09/24 12:17 Insulin Aspart (*Bkc) 100 Units/Ml SUB-Q 3 units TIDWM [facility] Administration Protocol Insulin Glargine 25 units 05/08/24 09:00 05/09/24 08:58 Insulin Glargine (*Bkc) 100 Units/Ml SUB-Q 25 units DAILY JHOANA Administration Linezolid 600 mg 05/09/24 21:00 Linezolid 600 Mg Tablet PO Q12HR JHOANA Loratadine 10 mg 05/04/24 08:51 05/04/24 11:45 Loratadine 10 Mg Tablet PO 10 mg QAM PRN Administration itching Ondansetron HCl 4 mg 05/03/24 23:51 Ondansetron Inj 4 Mg/2 Ml Vial IV PUSH Q4H PRN Nausea Pantoprazole Sodium 40 mg 05/04/24 09:00 05/09/24 09:14 Pantoprazole Sodium Iv 40 Mg Vial IV PUSH 40 mg QAM [facility] Administration Sodium Hypochlorite 1 applic 05/06/24 09:00 05/08/24 20:41 Sod Hypochlorite 1/4 Strength 473 Ml TOPICAL Not Given Q12HR JHOANA Triamcinolone Acetonide 1 applic 05/04/24 09:00 05/09/24 09:00 Triamcinolone Acet 0.1% Cream 80 Gm Tube TOPICAL 1 applic BID JHOANA Administration Radiology Results: ITS Impressions Head CT 05/03/24 20:56 IMPRESSION: Acute infarct involving a portion of the right MCA territory. Results reported telephonically to Dr. Duong by Dr. Langford at 9:01 PM on 05/03/2024. Cervical Spine CT 05/03/24 21:01 IMPRESSION: No acute fracture or traumatic malalignment in the cervical spine. Abdomen/Pelvis CT 05/03/24 21:06 IMPRESSION: No acute abdominopelvic process detected. Foot X-Ray 05/04/24 07:08 IMPRESSION: 1. Soft tissue gas in the plantar aspect of the heel. No evidence of osteomyelitis. Carotid Doppler Study 05/04/24 14:15 IMPRESSION: 1. <50% stenosis in the right internal carotid artery. 2. <50% stenosis in the left internal carotid artery. Renal Ultrasound 05/04/24 14:16 IMPRESSION: No definite abnormality. Chest X-Ray 05/05/24 06:38 IMPRESSION: 1. Cardiomegaly and pulmonary vascular congestion without parish pulmonary edema. Ankle Brachial Index 05/08/24 06:55 IMPRESSION: 1. Decreased TBIs and normal ABIs, consistent with arterial occlusive disease. Note that ABIs may be overestimated if arteries are calcified. Labs Labs: Laboratory Results - last 24 hr 05/08/24 05/08/24 05/09/24 15:21 20:15 03:48 WBC 14.6 H RBC 2.61 L Hgb 9.3 L Hct 26.8 L MCV 102.7 H MCH 35.6 H D MCHC 34.7 RDW 14.3 Plt Count 350 MPV 10.9 H Immature Gran % (Auto) 0.8 H Neut % (Auto) 80.2 H Lymph % (Auto) 9.6 L Z[place] % (Auto) 7.5 Eos % (Auto) 1.5 Baso % (Auto) 0.4 Lymph # (Auto) 1.40 [place] # (Auto) 1.1 H Eos # (Auto) 0.2 Baso # (Auto) 0.1 Abs Immat Gran (auto) 0.12 H Absolute Neuts (auto) 11.7 H Absolute Nucleated RBC 0.000 Nucleated RBC % 0.0 Sodium 139 Potassium 3.4 Chloride 104 Carbon Dioxide 28 Anion Gap 7 BUN 47 H Creatinine 2.20 H Estim Creat Clear Calc 45 Estimated GFR 30 L Glucose 196 H POC Capillary Glucose 250 H 218 H Calcium 9.0 Phosphorus 3.4 Magnesium 1.7 Total Bilirubin 0.9 AST 24 ALT 28 Alkaline Phosphatase 136 H Total Protein 7.0 Albumin 3.1 L 05/09/24 05/09/24 07:44 11:27 WBC RBC Hgb Hct MCV MCH MCHC RDW Plt Count MPV Immature Gran % (Auto) Neut % (Auto) Lymph % (Auto) [place] % (Auto) Eos % (Auto) Baso % (Auto) Lymph # (Auto) [place] # (Auto) Eos # (Auto) Baso # (Auto) Abs Immat Gran (auto) Absolute Neuts (auto) Absolute Nucleated RBC Nucleated RBC % Sodium Potassium Chloride Carbon Dioxide Anion Gap BUN Creatinine Estim Creat Clear Calc Estimated GFR Glucose POC Capillary Glucose 187 H 248 H Calcium Phosphorus Magnesium Total Bilirubin AST ALT Alkaline Phosphatase Total Protein Albumin
--- NOTE | 2024-05-09 13:38 | PCPTNOTE ---
Attempted to see patient for Physical Therapy. Patient stated that he already sat up in bed today with therapy. He stated that doing exercises would be too much for his legs. RN notified.
[2024-05-09] MEDS: ACETAMINOPHEN 325 MG TABLET 650 MG PO (14:08)
[2024-05-09] MEDS: SOD HYPOCHLORITE 1/4 STRENGTH 473 ML 1 APPLIC TOPICAL (15:00)
[2024-05-09 16:35] LABS: Glucose Point of Care 281 mg/dl (65-105)
[2024-05-09] MEDS: INSULIN ASPART (*BKC) 100 UNITS/ML 8 UNITS SUB-Q (17:00)
--- NOTE | 2024-05-09 19:39 | PC.NURSE ---
Report called to RYAN Roldan.
[2024-05-09 20:07] LABS: Glucose Point of Care 181 mg/dl (65-105)
[2024-05-09] MEDS: LINEZOLID 600 MG TABLET PO (20:40)
[2024-05-10] VITALS (13 sets, daily range): BP systolic 136–156; BP diastolic 71–84; PULSE 78–80; RESP 16–24; TEMP 36–37.2; O2SAT 93–96
[2024-05-10] MEDS: PIPERACILLIN/TAZ 2.25G/NS 50ML 2.25 GM/50 ML BAG IVPB ×3 (00:37→12:02)
[2024-05-10] MEDS: IPRATROPIUM 0.5 MG/ALBUTEROL SULFATE 2.5 MG AMPUL.NEB 3 ML INHALATION ×4 (02:59→20:42)
[2024-05-10] MEDS: ACETAMINOPHEN 325 MG TABLET 650 MG PO ×2 (05:42→20:39)
[2024-05-10 06:49] LABS: Basophils Percent Auto 0.3 % (0.2-1.2); Eosinophils Absolute Auto 0.2 K/mm3 (0-0.3); Eosinophils Percent Auto 1.9 % (0-4.4); Hematocrit 26.2 % (42.0-52.0); Hemoglobin 8.2 g/dL (14.0-18.0); Immature Granulocyte Absolute 0.12 K/mm3 (0.00-0.031); Lymphocytes Absolute Auto 1.19 K/mm3 (0.9-3.2); Lymphocytes Percent Auto 9.6 % (18.3-44.2); Mean Corpuscular HGB Conc 31.3 g/dl (32-36); Mean Corpuscular Hemoglobin 31.8 pg (26-34); Mean Corpuscular Volume 101.6 fl (80-100); Mean Platelet Volume 10.5 fl (7.4-10.4); Monocytes Absolute Auto 0.8 K/mm3 (0.1-0.6); Monocytes Percent Auto 6.4 % (2.6-8.5); Neutrophils Percent Auto 80.8 % (45.5-73.1); Platelet Count Result 349 k/mm3 (150-375); Red Blood Count 2.58 M/mm3 (4.6-6.20); Red Cell Distribution Width 14.1 % (11.5-14.5); White Blood Count 12.4 K/mm3 (4.5-10.0)
[2024-05-10 07:11] LABS: Alanine Aminotransferase 24 U/L (6-50); Albumin Level 2.8 g/dL (3.5-5.1); Alkaline Phosphatase 129 U/L (38-126); Anion Gap 4 mmol/L (4-12); Aspartate Amino Transferase 25 U/L (17-59); Bilirubin,Total 0.9 mg/dL (0.2-1.3); Blood Urea Nitrogen 36 mg/dL (9-20); Calcium 8.8 mg/dL (8.4-10.2); Carbon Dioxide 27 mmol/L (22-30); Chloride 105 mmol/L (98-107); Estimated CRCL calculation 56 ml/min; Estimated Glomerular Filt Rate 41; Glucose 128 mg/dL (65-110); Magnesium 1.5 mg/dL (1.6-2.3); Potassium 3.5 mmol/L (3.4-5.0); Sodium 136 mmol/L (137-145)
[2024-05-10 07:39] LABS: Glucose Point of Care 116 mg/dl (65-105)
[2024-05-10] MEDS: ATORVASTATIN 40 MG TABLET PO (09:49)
[2024-05-10] MEDS: ASPIRIN 325 MG TABLET PO (09:49)
[2024-05-10] MEDS: LINEZOLID 600 MG TABLET PO (09:50)
[2024-05-10] MEDS: MAGNESIUM SULF 1 GM/D5W 100 ML 1 GM/100 ML BAG IVPB (09:50)
[2024-05-10] MEDS: amLODIPine BESYLATE 2.5 MG TABLET PO (09:50)
[2024-05-10] MEDS: PANTOPRAZOLE SODIUM IV 40 MG VIAL IV PUSH (09:51)
[2024-05-10] MEDS: INSULIN ASPART (*BKC) 100 UNITS/ML 8 UNITS SUB-Q ×3 (10:04→17:06)
[2024-05-10 11:40] LABS: Glucose Point of Care 185 mg/dl (65-105)
--- NOTE | 2024-05-10 12:00 | P.PNNP_ITS ---
Progress Note: A&P Assessment and Plan (1) Acute kidney injury: Code(s): N17.9 - Acute kidney failure, unspecified Status: Acute Assessment and Plan: * slow improvement * as noted by admission labs -- creatinine 3.40mg/dl * evaluation to date noted: * CT scan of the abdomen/pelvis did not show any hydronephrosis * renal ultrasound normal * urine electrolytes prerenal * urine eosinophils negative * CPK mildly elevated - follow trend * UA with 2+ protein and 1+ blood * suspect multifactorial etiology * hypotension/hemodynamic instability on admission * sepsis/infection (bacteremia) * rhabdomyolysis * element of disease progression (?) * making reasonable urine output * follow trend of repeat labs and UOP (2) Stage 3a chronic kidney disease: Code(s): N18.31 - Chronic kidney disease, stage 3a Status: Chronic Assessment and Plan: * creatinine running ~ 1.3 - 1.4mg/dl (although last labs done are from 2020) * presumably secondary to hypertension, diabetes, and vascular disease * cannot discount an element of CKD progression (since last labs available are f rom 3 years ago....) (3) Sepsis: Code(s): A41.9 - Sepsis, unspecified organism Status: Acute Assessment and Plan: * as noted on presentation with AMS, high fevers, lactic acidosis, and tachycardia * s/p aggressive IVF resuscitation * s/p bicarb IVFs for acidosis * follow culture data * 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 * repeat cultures are negative so far * wound cultures with Staphylococcus aureus and Streptococcus constellatus * on antibiotics * continue supportive therapy (4) Acute CVA (cerebrovascular accident): Code(s): I63.9 - Cerebral infarction, unspecified Status: Acute Assessment and Plan: * presentation with AMS as well as facial droop + weakness * admission head CT showed acute infarct involving a portion of the right MCA territory * not a candidate for tPA as unclear when he was last at baseline * found on the floor - unclear duration as well * Neurology following (5) Diabetic foot ulcer: Qualifiers: Diabetes mellitus type: type 2 Diabetic foot ulcer location: midfoot Laterality: right Non-pressure ulcer stage: with muscle involvement without evidence of necrosis Qualified Code(s): E11.621 - Type 2 diabetes mellitus with foot ulcer; L97.415 - Non-pressure chronic ulcer of right heel and midfoot with muscle involvement without evidence of necrosis Code(s): E11.621 - Type 2 diabetes mellitus with foot ulcer; L97.509 - Non-pressure chronic ulcer of other part of unspecified foot with unspecified severity Status: Acute Assessment and Plan: * extensive LE wounds on feet and heels * left foot x-ray showed no evidence of osteomyelitis * right foot x-ray showed soft tissue gas in the plantar aspect of the heel, no evidence of osteomyelitis * Surgery following * s/p debridement in OR on 05/06 * noted OSCAR results * may need further operative intervention (6) Hypertension: Code(s): I10 - Essential (primary) hypertension Status: Acute Assessment and Plan: * known history * BP medications were on hold due to sepsis and hypotension on admission * started on low dose amlodipine with better control * follow trend of hemodynamics (7) Type 2 diabetes mellitus: Code(s): E11.9 - Type 2 diabetes mellitus without complications Status: Acute Assessment and Plan: * on accu-cheks * glycemic control per hospitalist Will continue to follow. Subjective Date/time seen: 05/10/24 12:00 Interval history: Follow-up for acute kidney injury/acute renal failure on chronic kidney disease. Renal function/creatinine continues to improve with ongoing therapy/treatment; no apparent issues or problems voiced at this time; overall, seems to make slow and steady progress in general; no events overnight or earlier this morning. Exam Narrative: General: WD/WN male in NAD Heart: normal S1 and S2; no rub Lungs: clear anteriorly Abdomen: soft, nontender, nondistended, positive bowel sounds Extremities: no cyanosis or clubbing; 1+ bilateral edema Skin: dressings over bilateral feet/LEs apparent Objective Data Vital Signs Vital Signs: Vital Signs Temp Pulse Resp BP Pulse Ox O2 Del Method O2 Flow Rate 05/10/24 11:59 96.8 F L 80 16 136/78 96 05/10/24 10:00 Room Air 05/10/24 09:12 80 24 H 05/10/24 09:05 80 24 H 05/10/24 08:00 97.3 F L 80 18 153/79 H 95 05/10/24 04:00 98.9 F 79 22 H 138/84 93 05/10/24 02:59 79 18 05/10/24 03:13 78 20 05/10/24 00:00 98.6 F 80 22 H 139/71 96 05/09/24 21:30 80 20 05/09/24 21:19 80 20 05/09/24 21:19 95 Nasal Cannula 2 05/09/24 20:00 97.6 F 80 20 138/72 95 05/09/24 16:35 97.9 F 80 22 H 122/70 96 05/09/24 16:00 97.9 F 80 22 H 122/70 96 Intake/Output Intake/Output: Intake & Output 05/07/24 05/08/24 05/09/24 05/10/24 23:59 23:59 23:59 23:59 Intake Total 1600 2090 1660 955 Output Total 500 1050 900 700 Balance 1100 1040 760 255 Meds/Results Medications: Active Medications Generic Name Dose Route Start Last Admin Trade Name Freq PRN Reason Stop Dose Admin Acetaminophen 650 mg 05/05/24 13:04 05/10/24 05:42 Acetaminophen 325 Mg Tablet PO 650 mg Q6H PRN Administration Mild Pain (1-3) or Fever Albuterol/Ipratropium 3 ml 05/04/24 01:39 05/08/24 00:02 Ipratropium 0.5 Mg/Albuterol Sulfate 2.5 Mg Ampul.Neb 3 Ml INHALATION 3 ml Q6HRT PRN Administration shortness of breath or wheezing Albuterol/Ipratropium 3 ml 05/05/24 08:40 05/10/24 13:53 Ipratropium 0.5 Mg/Albuterol Sulfate 2.5 Mg Ampul.Neb 3 Ml INHALATION 3 ml Q6HRT JHOANA Administration Amlodipine Besylate 2.5 mg 05/08/24 09:15 05/10/24 09:50 Amlodipine Besylate 2.5 Mg Tablet PO 2.5 mg QAM JHOANA Administration Aspirin 325 mg 05/05/24 09:00 05/10/24 09:49 Aspirin 325 Mg Tablet PO 325 mg DAILY@0800 JHOANA Administration Atorvastatin Calcium 40 mg 05/04/24 09:00 05/10/24 09:49 Atorvastatin 40 Mg Tablet PO 40 mg DAILY JHOANA Administration Dextrose 12.5 gm 05/04/24 01:34 Dextrose 50% 25 Gm/50 Ml Syringe IV PUSH PRN PRN Hypoglycemia Protocol Diphenhydramine HCl 12.5 mg 05/04/24 15:08 05/07/24 23:39 Diphenhydramine Hcl Elixir 12.5 Mg/5 Ml Udc PO 12.5 mg Q6H PRN Administration Itching Glucagon 1 mg 05/04/24 01:34 Glucagon For Inj 1 Mg Vial IM PRN PRN Hypoglycemia Protocol Glucose 15 gm 05/04/24 01:34 Glucose Oral Gel 15 Gm Of Glucse In 37.5 Gm Tube PO PRN PRN Hypoglycemia Protocol Guaifenesin/Dextromethorphan 10 ml 05/05/24 08:37 05/09/24 09:14 Guaifenesin/Dextromethorphan 10 Ml Udc PO 10 ml Q4H PRN Administration Cough Dextrose 1,000 mls @ 100 mls/hr 05/04/24 01:34 Dextrose 5% 1,000 Ml IVPB PRN PRN Hypoglycemia Protocol Piperacillin/Tazobactam/Dextrose 3.375 gm in 50 mls @ 100 mls/hr 05/10/24 18:00 Zosyn 3.375 Gm/Ns 50 Ml IVPB Q6HR [facility] Insulin Aspart 3 - 6 units 05/08/24 08:00 05/10/24 11:55 Insulin Aspart (*Bkc) 100 Units/Ml SUB-Q Not Given TIDWM [facility] Protocol Insulin Aspart 8 units 05/09/24 17:00 05/10/24 11:56 Insulin Aspart (*Bkc) 100 Units/Ml SUB-Q 8 units TIDWM JHOANA Administration Insulin Glargine 30 units 05/10/24 09:00 05/10/24 13:27 Insulin Glargine (*Bkc) 100 Units/Ml SUB-Q Not Given DAILY [facility] Linezolid 600 mg 05/09/24 21:00 05/10/24 09:50 Linezolid 600 Mg Tablet PO 600 mg Q12HR JHOANA Administration Loratadine 10 mg 05/04/24 08:51 05/04/24 11:45 Loratadine 10 Mg Tablet PO 10 mg QAM PRN Administration itching Ondansetron HCl 4 mg 05/03/24 23:51 Ondansetron Inj 4 Mg/2 Ml Vial IV PUSH Q4H PRN Nausea Pantoprazole Sodium 40 mg 05/04/24 09:00 05/10/24 09:51 Pantoprazole Sodium Iv 40 Mg Vial IV PUSH 40 mg QAM JHOANA Administration Sodium Hypochlorite 1 applic 05/06/24 09:00 05/10/24 12:30 Sod Hypochlorite 1/4 Strength 473 Ml TOPICAL 1 applic Q12HR JHOANA Administration Triamcinolone Acetonide 1 applic 05/04/24 09:00 05/10/24 12:30 Triamcinolone Acet 0.1% Cream 80 Gm Tube TOPICAL 1 applic BID JHOANA Administration Radiology Results: ITS Impressions Head CT 05/03/24 20:56 IMPRESSION: Acute infarct involving a portion of the right MCA territory. Results reported telephonically to Dr. Duong by Dr. Langford at 9:01 PM on 05/03/2024. Cervical Spine CT 05/03/24 21:01 IMPRESSION: No acute fracture or traumatic malalignment in the cervical spine. Abdomen/Pelvis CT 05/03/24 21:06 IMPRESSION: No acute abdominopelvic process detected. Foot X-Ray 05/04/24 07:08 IMPRESSION: 1. Soft tissue gas in the plantar aspect of the heel. No evidence of osteomyelitis. Carotid Doppler Study 05/04/24 14:15 IMPRESSION: 1. <50% stenosis in the right internal carotid artery. 2. <50% stenosis in the left internal carotid artery. Renal Ultrasound 05/04/24 14:16 IMPRESSION: No definite abnormality. Ankle Brachial Index 05/08/24 06:55 IMPRESSION: 1. Decreased TBIs and normal ABIs, consistent with arterial occlusive disease. Note that ABIs may be overestimated if arteries are calcified. Chest X-Ray 05/09/24 13:15 IMPRESSION: 1. Mild atelectasis in right lower lung zone. Labs Labs: Laboratory Tests 05/10/24 06:11 05/10/24 06:11 Calcium 8.8 Magnesium 1.5 L Total Bilirubin 0.9 AST 25 ALT 24 Alkaline Phosphatase 129 H Total Protein 7.0 Albumin 2.8 L Microbiology 05/06/24 08:11 Foot Right Anaerobic Culture - Preliminary Bacteroides thetaiotaomicron 05/06/24 08:11 Foot Right Aerobic Culture - Final Staphylococcus aureus Streptococcus constellatus 05/03/24 19:45 Blood Blood Culture - Final Gemella morbillorum 05/03/24 19:47 Blood Blood Culture - Final Gemella morbillorum
[2024-05-10] MEDS: SOD HYPOCHLORITE 1/4 STRENGTH 473 ML 1 APPLIC TOPICAL ×2 (12:30→22:12)
[2024-05-10] MEDS: TRIAMCINOLONE ACET 0.1% CREAM 80 GM TUBE 1 APPLIC TOPICAL ×2 (12:30→17:06)
--- NOTE | 2024-05-10 13:16 | P.PNIM_ITS ---
Progress Note: A&P Assessment and Plan (1) Acute CVA (cerebrovascular accident): Code(s): I63.9 - Cerebral infarction, unspecified Status: Acute Assessment and Plan: 05/03: Patient presented with altered mental status, noted to have some facial droop and weakness. - Head CT showed acute infarct involving a portion of the right MCA territory -patient not a candidate for tPA as last well known time is unavailable -patient was found on the floor, with altered mental status, has not been seen by anybody for approximately 10 days any spoke to a friend 2 days prior to coming to the ER. This is according to the records -continue statin, aspirin -appreciate Neurology evaluation -patient has a pacemaker so may not be a candidate for MRI line carotid ultrasound less than 50% narrowing on both sides Echocardiogram with left ventricular hypertrophy ejection fraction of 40-45%. (2) Sepsis: Code(s): A41.9 - Sepsis, unspecified organism Status: Acute Assessment and Plan: Patient presented with altered mental status, fevers of 105? F, elevated lactic acid of 5.3, tachycardia -patient was given 30 mL/kg IV fluid bolus -repeat lactic was 1.8 -mild elevation in troponin is likely related to ischemic demand as patient denies any chest pain, EKG did not show any ST elevations which showed paced rhythm Was treated with sodium bicarb switched to oral bicarb. Blood culture Gram-positive cocci in clusters. Identified as gemella morbillorum. Repeat blood culture had been obtained. On linezolid -discontinued cefepime and vancomycin And was switched to linezolid and Zosyn Did not require any pressors Wound culture with Staphylococcus aureus and Streptococcus constellatus. Continue current antibiotics. Switch linezolid to oral (3) Diabetic foot ulcer: Qualifiers: Diabetes mellitus type: type 2 Diabetic foot ulcer location: midfoot Laterality: right Non-pressure ulcer stage: with muscle involvement without evidence of necrosis Qualified Code(s): E11.621 - Type 2 diabetes mellitus with foot ulcer; L97.415 - Non-pressure chronic ulcer of right heel and midfoot with muscle involvement without evidence of necrosis Code(s): E11.621 - Type 2 diabetes mellitus with foot ulcer; L97.509 - Non-pressure chr onic ulcer of other part of unspecified foot with unspecified severity Status: Acute Assessment and Plan: Patient has bilateral diabetic foot ulcers -Left foot x-ray showed no evidence of osteomyelitis -Right foot x-ray showed soft tissue gas in the plantar aspect of the heel, no evidence of osteomyelitis -surgery has been consulted due to soft tissue gas and status post debridement 05/06/2024 Surgery planning potential right BKA (4) Type 2 diabetes mellitus: Code(s): E11.9 - Type 2 diabetes mellitus without complications Status: Acute Assessment and Plan: Continue Accu-Cheks, sliding scale insulin -hemoglobin A1c is 8.4% Adjust insulin as needed (5) Acute kidney injury: Code(s): N17.9 - Acute kidney failure, unspecified Status: Acute Assessment and Plan: 05/03: Patient presented with acute kidney injury on admission, creatinine of 3.40. (baseline creatinine is 0.90-1.40 in September 2020) -patient has a history of hypertension, diabetes, is on Lasix, valsartan carvedilol, diltiazem at home. Unknown how long he was hypotensive prior to coming to the hospital, could be related to infection, ATN -patient received 30 mL/kg IV fluid bolus Received IV fluids and also received albumin for volume expansion given that he has a history of heart failure -CK levels trending down -CT scan of the abdomen and pelvis did not show any hydronephrosis, renal ultrasound with no acute abnormality -nephrology has been has been consulted -monitor urine output, renal function electrolytes. Creatinine trending downwards -maintain mean arterial pressures greater than 65 at all times (6) Rhabdomyolysis: Qualifiers: Rhabdomyolysis type: non-traumatic Qualified Code(s): M62.82 - Rhabdomyolysis Code(s): M62.82 - Rhabdomyolysis Status: Acute Assessment and Plan: Patient rolled off his couch and was on the floor for unknown amount of time -elevated CK levels -CK levels trending down -continue sodium bicarb infusion (7) Parkinsons disease: Code(s): G20 - Parkinson's disease Status: Acute Assessment and Plan: History of Parkinson's disease (8) Hypertension: Code(s): I10 - Essential (primary) hypertension Status: Acute Assessment and Plan: History of essential hypertension -will hold all antihypertensives as patient has borderline blood pressures (9) Hyperlipidemia: Code(s): E78.5 - Hyperlipidemia, unspecified Status: Acute Assessment and Plan: Continue atorvastatin (10) Asthma: Code(s): J45.909 - Unspecified asthma, uncomplicated Status: Acute Assessment and Plan: Patient complaining of dry cough, wheezing, states he has a history of asthma and takes inhaler p.r.n. Patient on bronchodilator -added p.r.n. Robitussin Plan DVT prophylaxis: SCDs, no chemoprophylaxis due to acute stroke as there could be risk of hemorrhagic transformation Stress ulcer prophylaxis: Protonix Nutrition: Appreciate speech evaluation, on diabetic soft and bite size diet Bacteremia: NOTED ABOVE Code Status: Do not resuscitate Subjective Date/time seen: 05/10/24 13:16 Interval history: NO OVERNIGHT EVENTS. OFF OXYGEN. DENIES ANY CHEST PAIN OR SHORTNESS OF BREATH. LABS REVIEWED. Review of Systems Review of Systems: All systems reviewed & are unremarkable except as noted in HPI and below Exam Narrative: General: Pleasant gentleman in no acute distress sitting up on the bed HEENT:? Pupils equal and reactive, sclera is clear, dry oral mucosa Neck:? Supple Respiratory:? Clear to auscultation bilaterally, decreased at bases, adequate air entry Cardiac:? Paced rhythm Abdomen:? Soft, nontender, protuberant, nondistended, normoactive bowel sounds Extremities:? Bilateral lower feet in dressing, 1+ pitting edema, palpable pedal pulses Neuro:? Patient is awake, alert, oriented x3, able to move all extremities, strength 4/5 in bilateral upper extremity and 3/5 in bilateral lower extremity, sensations are diminished in the lower extremities Skin:? Chronic venous stasis changes on bilateral lower extremities, Psych:? Depressed affect Objective Data Vital Signs Vital Signs: Vital Signs - 24 hr 05/09/24 13:28 05/09/24 13:28 05/09/24 13:39 Temperature Pulse Rate 80 80 Respiratory Rate 18 18 Blood Pressure Pulse Oximetry 97 Oxygen Delivery Room Air Oxygen Flow Rate 05/09/24 14:00 05/09/24 16:00 05/09/24 16:35 Temperature 97.9 F 97.9 F Pulse Rate 80 80 80 Respiratory Rate 22 H 22 H Blood Pressure 122/70 122/70 Pulse Oximetry 96 96 Oxygen Delivery Oxygen Flow Rate 05/09/24 20:00 05/09/24 21:19 05/09/24 21:19 Temperature 97.6 F Pulse Rate 80 80 Respiratory Rate 20 20 Blood Pressure 138/72 Pulse Oximetry 95 95 Oxygen Delivery Nasal Cannula Oxygen Flow Rate 2 05/09/24 21:30 05/10/24 00:00 05/10/24 03:13 Temperature 98.6 F Pulse Rate 80 80 78 Respiratory Rate 20 22 H 20 Blood Pressure 139/71 Pulse Oximetry 96 Oxygen Delivery Oxygen Flow Rate 05/10/24 02:59 05/10/24 04:00 05/10/24 08:00 Temperature 98.9 F 97.3 F L Pulse Rate 79 79 80 Respiratory Rate 18 22 H 18 Blood Pressure 138/84 153/79 H Pulse Oximetry 93 95 Oxygen Delivery Oxygen Flow Rate 05/10/24 09:05 05/10/24 09:12 05/10/24 10:00 Temperature Pulse Rate 80 80 Respiratory Rate 24 H 24 H Blood Pressure Pulse Oximetry Oxygen Delivery Room Air Oxygen Flow Rate 05/10/24 11:59 Temperature 96.8 F L Pulse Rate 80 Respiratory Rate 16 Blood Pressure 136/78 Pulse Oximetry 96 Oxygen Delivery Oxygen Flow Rate Intake/Output Intake/Output: Intake & Output 05/07/24 05/08/24 05/09/24 05/10/24 23:59 23:59 23:59 23:59 Intake Total 1600 2090 1660 715 Output Total 500 1050 900 600 Balance 1100 1040 760 115 Meds/Results Medications: Active Medications Generic Name Dose Route Start Last Admin Trade Name Freq PRN Reason Stop Dose Admin Acetaminophen 650 mg 05/05/24 13:04 05/10/24 05:42 Acetaminophen 325 Mg Tablet PO 650 mg Q6H PRN Administration Mild Pain (1-3) or Fever Albuterol/Ipratropium 3 ml 05/04/24 01:39 05/08/24 00:02 Ipratropium 0.5 Mg/Albuterol Sulfate 2.5 Mg Ampul.Neb 3 Ml INHALATION 3 ml Q6HRT PRN Administration shortness of breath or wheezing Albuterol/Ipratropium 3 ml 05/05/24 08:40 05/10/24 09:05 Ipratropium 0.5 Mg/Albuterol Sulfate 2.5 Mg Ampul.Neb 3 Ml INHALATION 3 ml Q6HRT JHOANA Administration Amlodipine Besylate 2.5 mg 05/08/24 09:15 05/10/24 09:50 Amlodipine Besylate 2.5 Mg Tablet PO 2.5 mg QAM JHOANA Administration Aspirin 325 mg 05/05/24 09:00 05/10/24 09:49 Aspirin 325 Mg Tablet PO 325 mg DAILY@0800 JHOANA Administration Atorvastatin Calcium 40 mg 05/04/24 09:00 05/10/24 09:49 Atorvastatin 40 Mg Tablet PO 40 mg DAILY JHOANA Administration Dextrose 12.5 gm 05/04/24 01:34 Dextrose 50% 25 Gm/50 Ml Syringe IV PUSH PRN PRN Hypoglycemia Protocol Diphenhydramine HCl 12.5 mg 05/04/24 15:08 05/07/24 23:39 Diphenhydramine Hcl Elixir 12.5 Mg/5 Ml Udc PO 12.5 mg Q6H PRN Administration Itching Glucagon 1 mg 05/04/24 01:34 Glucagon For Inj 1 Mg Vial IM PRN PRN Hypoglycemia Protocol Glucose 15 gm 05/04/24 01:34 Glucose Oral Gel 15 Gm Of Glucse In 37.5 Gm Tube PO PRN PRN Hypoglycemia Protocol Guaifenesin/Dextromethorphan 10 ml 05/05/24 08:37 05/09/24 09:14 Guaifenesin/Dextromethorphan 10 Ml Udc PO 10 ml Q4H PRN Administration Cough Dextrose 1,000 mls @ 100 mls/hr 05/04/24 01:34 Dextrose 5% 1,000 Ml IVPB PRN PRN Hypoglycemia Protocol Piperacillin Sod/Tazobactam Sod 2.25 gm in 50 mls @ 100 mls/hr 05/04/24 12:00 05/10/24 12:02 Zosyn 2.25 Gm/Ns 50 Ml IVPB 200 mls/hr Q6H JHOANA Administration Insulin Aspart 3 - 6 units 05/08/24 08:00 05/10/24 11:55 Insulin Aspart (*Bkc) 100 Units/Ml SUB-Q Not Given TIDWM [facility] Protocol Insulin Aspart 8 units 05/09/24 17:00 05/10/24 11:56 Insulin Aspart (*Bkc) 100 Units/Ml SUB-Q 8 units TIDWM JHOANA Administration Insulin Glargine 30 units 05/10/24 09:00 Insulin Glargine (*Bkc) 100 Units/Ml SUB-Q DAILY [facility] Linezolid 600 mg 05/09/24 21:00 05/10/24 09:50 Linezolid 600 Mg Tablet PO 600 mg Q12HR JHOANA Administration Loratadine 10 mg 05/04/24 08:51 05/04/24 11:45 Loratadine 10 Mg Tablet PO 10 mg QAM PRN Administration itching Ondansetron HCl 4 mg 05/03/24 23:51 Ondansetron Inj 4 Mg/2 Ml Vial IV PUSH Q4H PRN Nausea Pantoprazole Sodium 40 mg 05/04/24 09:00 05/10/24 09:51 Pantoprazole Sodium Iv 40 Mg Vial IV PUSH 40 mg QAM JHOANA Administration Sodium Hypochlorite 1 applic 05/06/24 09:00 05/10/24 10:14 Sod Hypochlorite 1/4 Strength 473 Ml TOPICAL Not Given Q12HR [facility]HO[facility] Triamcinolone Acetonide 1 applic 05/04/24 09:00 05/09/24 17:00 Triamcinolone Acet 0.1% Cream 80 Gm Tube TOPICAL 1 applic BID JHOANA Administration Radiology Results: ITS Impressions Head CT 05/03/24 20:56 IMPRESSION: Acute infarct involving a portion of the right MCA territory. Results reported telephonically to Dr. Duong by Dr. Langford at 9:01 PM on 05/03/2024. Cervical Spine CT 05/03/24 21:01 IMPRESSION: No acute fracture or traumatic malalignment in the cervical spine. Abdomen/Pelvis CT 05/03/24 21:06 IMPRESSION: No acute abdominopelvic process detected. Foot X-Ray 05/04/24 07:08 IMPRESSION: 1. Soft tissue gas in the plantar aspect of the heel. No evidence of osteomyelitis. Carotid Doppler Study 05/04/24 14:15 IMPRESSION: 1. <50% stenosis in the right internal carotid artery. 2. <50% stenosis in the left internal carotid artery. Renal Ultrasound 05/04/24 14:16 IMPRESSION: No definite abnormality. Ankle Brachial Index 05/08/24 06:55 IMPRESSION: 1. Decreased TBIs and normal ABIs, consistent with arterial occlusive disease. Note that ABIs may be overestimated if arteries are calcified. Chest X-Ray 05/09/24 13:15 IMPRESSION: 1. Mild atelectasis in right lower lung zone. Labs Labs: Laboratory Results - last 24 hr 05/09/24 05/09/2405/10/24 15:29 20:03 06:11 WBC 12.4 H RBC 2.58 L Hgb 8.2 L Hct 26.2 L MCV 101.6 H MCH 31.8 D MCHC 31.3 L RDW 14.1 Plt Count 349 MPV 10.5 H Immature Gran % (Auto) 1.0 H Neut % (Auto) 80.8 H Lymph % (Auto) 9.6 L [place] % (Auto) 6.4 Eos % (Auto) 1.9 Baso % (Auto) 0.3 Lymph # (Auto) 1.19 [place] # (Auto) 0.8 H Eos # (Auto) 0.2 Baso # (Auto) 0.0 Abs Immat Gran (auto) 0.12 H Absolute Neuts (auto) 10.0 H Absolute Nucleated RBC 0.000 Nucleated RBC % 0.0 Sodium 136 L Potassium 3.5 Chloride 105 Carbon Dioxide 27 Anion Gap 4 BUN 36 H D Creatinine 1.70 H Estim Creat Clear Calc 56 Estimated GFR 41 L Glucose 128 H POC Capillary Glucose 281 H 181 H Calcium 8.8 Magnesium 1.5 L Total Bilirubin 0.9 AST 25 ALT 24 Alkaline Phosphatase 129 H Total Protein 7.0 Albumin 2.8 L 05/10/24 05/10/24 07:17 11:11 WBC RBC Hgb Hct MCV MCH MCHC RDW Plt Count MPV Immature Gran % (Auto) Neut % (Auto) Lymph % (Auto) [place] % (Auto) Eos % (Auto) Baso % (Auto) Lymph # (Auto) [place] # (Auto) Eos # (Auto) Baso # (Auto) Abs Immat Gran (auto) Absolute Neuts (auto) Absolute Nucleated RBC Nucleated RBC % Sodium Potassium Chloride Carbon Dioxide Anion Gap BUN Creatinine Estim Creat Clear Calc Estimated GFR Glucose POC Capillary Glucose 116 H 185 H Calcium Magnesium Total Bilirubin AST ALT Alkaline Phosphatase Total Protein Albumin
--- NOTE | 2024-05-10 14:15 | P.PNGS_ITS ---
Progress Note: A&P Assessment and Plan (1) Diabetic foot ulcer: Qualifiers: Diabetes mellitus type: type 2 Diabetic foot ulcer location: midfoot Laterality: right Non-pressure ulcer stage: with muscle involvement without evidence of necrosis Qualified Code(s): E11.621 - Type 2 diabetes mellitus with foot ulcer; L97.415 - Non-pressure chronic ulcer of right heel and midfoot with muscle involvement without evidence of necrosis Code(s): E11.621 - Type 2 diabetes mellitus with foot ulcer; L97.509 - Non-pressure chr onic ulcer of other part of unspecified foot with unspecified severity Status: Acute Assessment and Plan: The right heel ulcer is extensive with a large portion of the heel bone exposed following surgical debridement. He has a new area of purulent drainage and some necrotic tissue along the edges of the wound. Dr. Ta previously spoke with the patient that the right foot is likely not salvageable with recommendations of proceeding with a right BKA. I discussed this with the patient again today and answered all his questions. ABIs were normal bilaterally. Will continue with local wound care and IV antibiotics for now. We will try adding him onto the surgery schedule for a right BKA by Dr. Ta on . Plan I have discussed the patient's case and plan of care with Dr. Ta. Subjective Subjective Date/Time Seen: 05/10/24 14:15 Post Op day: 3 (Extensive sharp scalpel excisional debridement of skin, subcutaneous tissue, fascia, and periosteum of the bilateral heel wounds and right plantar forefoot wound) Patient reports: afebrile Interval history: Patient was seen after working with physical therapy and getting up to the chair with pivot transfer and heel touch weight bearing. He is having a hard time balancing with his neuropathy and weight bearing restrictions. He was able to stand and pivot with moderate assist. He denies any specific complaints at this time. I did his dressing change after he was in the chair. Exam Extrem: Other: Right heel wound has a large portion of the heel bone exposed, there is an area of soft necrotic tissue on the plantar foot at the 12 o'clock position that tunnels up the foot slightly and there is another area of soft necrotic reyez tissue on the lateral aspect of the heel wound with purulent drainage. Left heel wound with still tissue and periosteum covering the heel, small 1 cm area of yellow lr necrotic tissue but no purulent drainage or foul odor, the rest of the wound has some pink granulating tissue. No ascending cellulitis on feet. Objective Data Vital Signs Vital Signs: Vital Signs - 24 hr 05/09/24 16:00 05/09/24 16:35 05/09/24 20:00 Temperature 97.9 F 97.9 F 97.6 F Pulse Rate 80 80 80 Respiratory Rate 22 H 22 H 20 Blood Pressure 122/70 122/70 138/72 Pulse Oximetry 96 96 95 Oxygen Delivery Oxygen Flow Rate 05/09/24 21:19 05/09/24 21:19 05/09/24 21:30 Temperature Pulse Rate 80 80 Respiratory Rate 20 20 Blood Pressure Pulse Oximetry 95 Oxygen Delivery Nasal Cannula Oxygen Flow Rate 2 05/10/24 00:00 05/10/24 03:13 05/10/24 02:59 Temperature 98.6 F Pulse Rate 80 78 79 Respiratory Rate 22 H 20 18 Blood Pressure 139/71 Pulse Oximetry 96 Oxygen Delivery Oxygen Flow Rate 05/10/24 04:00 05/10/24 08:00 05/10/24 09:05 Temperature 98.9 F 97.3 F L Pulse Rate 79 80 80 Respiratory Rate 22 H 18 24 H Blood Pressure 138/84 153/79 H Pulse Oximetry 93 95 Oxygen Delivery Oxygen Flow Rate 05/10/24 09:12 05/10/24 10:00 05/10/24 11:59 Temperature 96.8 F L Pulse Rate 80 80 Respiratory Rate 24 H 16 Blood Pressure 136/78 Pulse Oximetry 96 Oxygen Delivery Room Air Oxygen Flow Rate 05/10/24 13:53 05/10/24 14:06 Temperature Pulse Rate 80 80 Respiratory Rate 20 20 Blood Pressure Pulse Oximetry Oxygen Delivery Oxygen Flow Rate Intake/Output Intake/Output: Intake & Output 05/07/24 05/08/24 05/09/24 05/10/24 23:59 23:59 23:59 23:59 Intake Total 1600 2090 1660 955 Output Total 500 1050 900 600 Balance 1100 1040 760 355 Meds/Results Medications: Active Medications Generic Name Dose Route Start Last Admin Trade Name Freq PRN Reason Stop Dose Admin Acetaminophen 650 mg 05/05/24 13:04 05/10/24 05:42 Acetaminophen 325 Mg Tablet PO 650 mg Q6H PRN Administration Mild Pain (1-3) or Fever Albuterol/Ipratropium 3 ml 05/04/24 01:39 05/08/24 00:02 Ipratropium 0.5 Mg/Albuterol Sulfate 2.5 Mg Ampul.Neb 3 Ml INHALATION 3 ml Q6HRT PRN Administration shortness of breath or wheezing Albuterol/Ipratropium 3 ml 05/05/24 08:40 05/10/24 13:53 Ipratropium 0.5 Mg/Albuterol Sulfate 2.5 Mg Ampul.Neb 3 Ml INHALATION 3 ml Q6HRT JHOANA Administration Amlodipine Besylate 2.5 mg 05/08/24 09:15 05/10/24 09:50 Amlodipine Besylate 2.5 Mg Tablet PO 2.5 mg QAM JHOANA Administration Aspirin 325 mg 05/05/24 09:00 05/10/24 09:49 Aspirin 325 Mg Tablet PO 325 mg DAILY@0800 JHOANA Administration Atorvastatin Calcium 40 mg 05/04/24 09:00 05/10/24 09:49 Atorvastatin 40 Mg Tablet PO 40 mg DAILY JHOANA Administration Dextrose 12.5 gm 05/04/24 01:34 Dextrose 50% 25 Gm/50 Ml Syringe IV PUSH PRN PRN Hypoglycemia Protocol Diphenhydramine HCl 12.5 mg 05/04/24 15:08 05/07/24 23:39 Diphenhydramine Hcl Elixir 12.5 Mg/5 Ml Udc PO 12.5 mg Q6H PRN Administration Itching Glucagon 1 mg 05/04/24 01:34 Glucagon For Inj 1 Mg Vial IM PRN PRN Hypoglycemia Protocol Glucose 15 gm 05/04/24 01:34 Glucose Oral Gel 15 Gm Of Glucse In 37.5 Gm Tube PO PRN PRN Hypoglycemia Protocol Guaifenesin/Dextromethorphan 10 ml 05/05/24 08:37 05/09/24 09:14 Guaifenesin/Dextromethorphan 10 Ml Udc PO 10 ml Q4H PRN Administration Cough Dextrose 1,000 mls @ 100 mls/hr 05/04/24 01:34 Dextrose 5% 1,000 Ml IVPB PRN PRN Hypoglycemia Protocol Piperacillin Sod/Tazobactam Sod 2.25 gm in 50 mls @ 100 mls/hr 05/04/24 12:00 05/10/24 12:02 Zosyn 2.25 Gm/Ns 50 Ml IVPB 200 mls/hr Q6H JHOANA Administration Insulin Aspart 3 - 6 units 05/08/24 08:00 05/10/24 11:55 Insulin Aspart (*Bkc) 100 Units/Ml SUB-Q Not Given TIDWM [facility] Protocol Insulin Aspart 8 units 05/09/24 17:00 05/10/24 11:56 Insulin Aspart (*Bkc) 100 Units/Ml SUB-Q 8 units TIDWM JHOANA Administration Insulin Glargine 30 units 05/10/24 09:00 05/10/24 13:27 Insulin Glargine (*Bkc) 100 Units/Ml SUB-Q Not Given DAILY [facility] Linezolid 600 mg 05/09/24 21:00 05/10/24 09:50 Linezolid 600 Mg Tablet PO 600 mg Q12HR JHOANA Administration Loratadine 10 mg 05/04/24 08:51 05/04/24 11:45 Loratadine 10 Mg Tablet PO 10 mg QAM PRN Administration itching Ondansetron HCl 4 mg 05/03/24 23:51 Ondansetron Inj 4 Mg/2 Ml Vial IV PUSH Q4H PRN Nausea Pantoprazole Sodium 40 mg 05/04/24 09:00 05/10/24 09:51 Pantoprazole Sodium Iv 40 Mg Vial IV PUSH 40 mg QAM JHOANA Administration Sodium Hypochlorite 1 applic 05/06/24 09:00 05/10/24 12:30 Sod Hypochlorite 1/4 Strength 473 Ml TOPICAL 1 applic Q12HR JHOANA Administration Triamcinolone Acetonide 1 applic 05/04/24 09:00 05/10/24 12:30 Triamcinolone Acet 0.1% Cream 80 Gm Tube TOPICAL 1 applic BID JHOANA Administration Radiology Results: ITS Impressions Head CT 05/03/24 20:56 IMPRESSION: Acute infarct involving a portion of the right MCA territory. Results reported telephonically to Dr. Duong by Dr. Langford at 9:01 PM on 05/03/2024. Cervical Spine CT 05/03/24 21:01 IMPRESSION: No acute fracture or traumatic malalignment in the cervical spine. Abdomen/Pelvis CT 05/03/24 21:06 IMPRESSION: No acute abdominopelvic process detected. Foot X-Ray 05/04/24 07:08 IMPRESSION: 1. Soft tissue gas in the plantar aspect of the heel. No evidence of osteomyelitis. Carotid Doppler Study 05/04/24 14:15 IMPRESSION: 1. <50% stenosis in the right internal carotid artery. 2. <50% stenosis in the left internal carotid artery. Renal Ultrasound 05/04/24 14:16 IMPRESSION: No definite abnormality. Ankle Brachial Index 05/08/24 06:55 IMPRESSION: 1. Decreased TBIs and normal ABIs, consistent with arterial occlusive disease. Note that ABIs may be overestimated if arteries are calcified. Chest X-Ray 05/09/24 13:15 IMPRESSION: 1. Mild atelectasis in right lower lung zone. Labs Labs: Laboratory Results - last 24 hr 05/09/24 05/09/24 05/10/24 15:29 20:03 06:11 WBC 12.4 H RBC 2.58 L Hgb 8.2 L Hct 26.2 L MCV 101.6 H MCH 31.8 D MCHC 31.3 L RDW 14.1 Plt Count 349 MPV 10.5 H Immature Gran % (Auto) 1.0 H Neut % (Auto) 80.8 H Lymph % (Auto) 9.6 L [place] % (Auto) 6.4 Eos % (Auto) 1.9 Baso % (Auto) 0.3 Lymph # (Auto) 1.19 Deuel # (Auto) 0.8 H Eos # (Auto) 0.2 Baso # (Auto) 0.0 Abs Immat Gran (auto) 0.12 H Absolute Neuts (auto) 10.0 H Absolute Nucleated RBC 0.000 Nucleated RBC % 0.0 Sodium 136 L Potassium 3.5 Chloride 105 Carbon Dioxide 27 Anion Gap 4 BUN 36 H D Creatinine 1.70 H Estim Creat Clear Calc 56 Estimated GFR 41 L Glucose 128 H POC Capillary Glucose 281 H 181 H Calcium 8.8 Magnesium 1.5 L Total Bilirubin 0.9 AST 25 ALT 24 Alkaline Phosphatase 129 H Total Protein 7.0 Albumin 2.8 L 05/10/24 05/10/24 07:17 11:11 WBC RBC Hgb Hct MCV MCH MCHC RDW Plt Count MPV Immature Gran % (Auto) Neut % (Auto) Lymph % (Auto) Deuel % (Auto) Eos % (Auto) Baso % (Auto) Lymph # (Auto) Deuel # (Auto) Eos # (Auto) Baso # (Auto) Abs Immat Gran (auto) Absolute Neuts (auto) Absolute Nucleated RBC Nucleated RBC % Sodium Potassium Chloride Carbon Dioxide Anion Gap BUN Creatinine Estim Creat Clear Calc Estimated GFR Glucose POC Capillary Glucose 116 H 185 H Calcium Magnesium Total Bilirubin AST ALT Alkaline Phosphatase Total Protein Albumin
[2024-05-10 16:17] LABS: Glucose Point of Care 172 mg/dl (65-105)
[2024-05-10] MEDS: PIPERACILLN/TAZ 3.375GM/NS50ML 3.375 GM/50 ML BAG IVPB (17:12)
[2024-05-10 20:24] LABS: Glucose Point of Care 97 mg/dl (65-105)
[2024-05-10] MEDS: TAMSULOSIN HCL 0.4 MG CAPSULE PO (20:39)
[2024-05-10] MEDS: MONTELUKAST SODIUM 10 MG TABLET PO (20:39)
[2024-05-10] MEDS: guaiFENesin/DEXTROMETHORPHAN 10 ML UDC PO (20:43)
[2024-05-11] VITALS (16 sets, daily range): BP systolic 134–148; BP diastolic 77–87; PULSE 78–89; RESP 16–22; TEMP 36.1–36.7; O2SAT 90–99
[2024-05-11] MEDS: PIPERACILLN/TAZ 3.375GM/NS50ML 3.375 GM/50 ML BAG IVPB ×4 (00:14→17:23)
[2024-05-11] MEDS: IPRATROPIUM 0.5 MG/ALBUTEROL SULFATE 2.5 MG AMPUL.NEB 3 ML INHALATION ×4 (02:27→21:43)
[2024-05-11 06:57] LABS: Basophils Percent Auto 0.5 % (0.2-1.2); Eosinophils Absolute Auto 0.2 K/mm3 (0-0.3); Eosinophils Percent Auto 2.2 % (0-4.4); Hematocrit 29.7 % (42.0-52.0); Immature Granulocyte Absolute 0.07 K/mm3 (0.00-0.031); Immature Granulocyte Percent A 0.8 % (0-0.5); Lymphocytes Absolute Auto 1.17 K/mm3 (0.9-3.2); Lymphocytes Percent Auto 13.6 % (18.3-44.2); Mean Corpuscular HGB Conc 30.3 g/dl (32-36); Mean Corpuscular Hemoglobin 32.5 pg (26-34); Mean Corpuscular Volume 107.2 fl (80-100); Mean Platelet Volume 10.7 fl (7.4-10.4); Monocytes Absolute Auto 0.7 K/mm3 (0.1-0.6); Monocytes Percent Auto 7.8 % (2.6-8.5); Neutrophils Absolute Auto 6.4 K/mm3 (1.3-6.7); Neutrophils Percent Auto 75.1 % (45.5-73.1); Platelet Count Result 290 k/mm3 (150-375); Red Blood Count 2.77 M/mm3 (4.6-6.20); Red Cell Distribution Width 14.5 % (11.5-14.5); White Blood Count 8.6 K/mm3 (4.5-10.0)
[2024-05-11 07:04] LABS: Alanine Aminotransferase 26 U/L (6-50); Albumin Level 3.2 g/dL (3.5-5.1); Alkaline Phosphatase 140 U/L (38-126); Anion Gap 6 mmol/L (4-12); Aspartate Amino Transferase 29 U/L (17-59); Bilirubin,Total 1.2 mg/dL (0.2-1.3); Blood Urea Nitrogen 30 mg/dL (9-20); Calcium 8.9 mg/dL (8.4-10.2); Carbon Dioxide 25 mmol/L (22-30); Chloride 106 mmol/L (98-107); Estimated CRCL calculation 63 ml/min; Estimated Glomerular Filt Rate 47; Glucose 169 mg/dL (65-110); Magnesium 1.7 mg/dL (1.6-2.3); Potassium 3.4 mmol/L (3.4-5.0); Sodium 137 mmol/L (137-145)
[2024-05-11 07:37] LABS: Crenated RBC 1+; Macrocytosis 1+ (NORMAL); Platelet Estimate Adequate (Adequate); Schistocytes None Seen
[2024-05-11 08:07] LABS: Glucose Point of Care 147 mg/dl (65-105)
[2024-05-11] MEDS: INSULIN ASPART (*BKC) 100 UNITS/ML 8 UNITS SUB-Q ×3 (08:37→17:25)
[2024-05-11] MEDS: POTASSIUM CHLORIDE 20 MEQ PACKET (FOR LIQUID) PO (08:42)
[2024-05-11] MEDS: PANTOPRAZOLE SODIUM IV 40 MG VIAL IV PUSH (08:42)
[2024-05-11] MEDS: ASPIRIN 325 MG TABLET PO (08:44)
[2024-05-11] MEDS: amLODIPine BESYLATE 2.5 MG TABLET PO (08:48)
[2024-05-11] MEDS: FOLIC ACID 1 MG TABLET PO (08:48)
[2024-05-11] MEDS: ATORVASTATIN 40 MG TABLET PO (08:48)
[2024-05-11] MEDS: TRIAMCINOLONE ACET 0.1% CREAM 80 GM TUBE 1 APPLIC TOPICAL ×2 (08:48→16:44)
[2024-05-11] MEDS: SOD HYPOCHLORITE 1/4 STRENGTH 473 ML 1 APPLIC TOPICAL ×2 (08:48→21:29)
--- NOTE | 2024-05-11 09:36 | WPDNEURCNPN ---
Assessment and Plan Assessment and plan (1) Right-sided cerebrovascular accident (CVA): Code(s): I63.9 - Cerebral infarction, unspecified Status: Acute (2) Chronic atrial fibrillation: Code(s): I48.20 - Chronic atrial fibrillation, unspecified Status: Acute (3) Diabetic foot ulcer: Qualifiers: Diabetes mellitus type: type 2 Diabetic foot ulcer location: midfoot Laterality: right Non-pressure ulcer stage: with muscle involvement without evidence of necrosis Qualified Code(s): E11.621 - Type 2 diabetes mellitus with foot ulcer; L97.415 - Non-pressure chronic ulcer of right heel and midfoot with muscle involvement without evidence of necrosis Code(s): E11.621 - Type 2 diabetes mellitus with foot ulcer; L97.509 - Non-pressure chronic ulcer of other part of unspecified foot with unspecified severity Status: Acute Plan As evaluated in the history and physical patient is stable from the neurological point of view to undergo the further surgical intervention for the diabetic foot ulcer that is amputation if any question arises please do not hesitate to contact me. Consult date: 05/11/24 HPI: Joselito Lamar Jr. is a 63 year old male Initially seen on May 04, 2024 with clinical documentation of acute cerebrovascular accident. Additionally patient carries the diagnosis of Parkinson's disease for which he had been taking carbidopa levodopa in addition to rivaroxaban for the anticoagulation therapy 20mg daily his clinical situation was also complicated by the underlying diabetes mellitus with peripheral neuropathy and peripheral vascular disease. During the hospitalization he was evaluated by the wall washer for the acute renal failure of multifactorial etiology complicated by the hypotension, sepsis, rhabdomyolysis. Ultrasound at that time was normal without any evidence of hydronephrosis and he was classified at chronic renal disease stage IIIA along with the ongoing diagnosis of diabetic foot ulcer on the right side in the midfoot area. Has been receiving the treatment since that time for the multiple underlying factors, has also undergone bilateral heel and right plantar 4ft diabetic foot ulcer treatment complicated by the underlying osteomyelitis. At present midfoot diabetic foot ulcer on the right side type 2 with muscle involvement but without evidence of necrosis is not healing with additional area of purulent drainage and necrotic tissue along the edges of the wound so consideration is being given for the right below the knee amputation. Most recent chest x-ray with mild atelectasis in the right lower lung zone, arterial ankle brachial index abnormal. His carotid studies on 05/04 are with less than 50% stenosis, x-ray chest with mild atelectasis in right lower lung zone, negative renal ultrasound and cultures as mentioned in the report. [facility] Past Medical History Medical History Anxiety Asthma Bilateral cataracts Maturing BPH loc w urin obs/LUTS Cellulitis of right lower extremity Chronic atrial fibrillation Coronary artery disease involving [place] heart without angina pectoris Depression Diabetic foot ulcer Diabetic peripheral neuropathy Dyslipidemia Essential hypertension Folate deficiency Gout Hyperlipidemia Kidney stones Parkinsons disease Right-sided cerebrovascular accident (CVA) Seasonal allergies Stasis dermatitis Type 2 diabetes mellitus Uncontrolled hypertension Surgical History Surgical History History of bilateral carpal tunnel release History of heart artery stent (~2008) History of permanent cardiac pacemaker placement (~2015) [place] Hx of tonsillectomy S/P cubital tunnel release Family History Family History Mother Family history of blood dyscrasia Grandparent Alcoholism Social History Social History Social History: He is and lives alone. He has 4 children 1 of which in a motor vehicle collision. He used to work for a [employer] company but is now on disability. He smokes about 10 cigarettes a day and has smoked since his early 20s. He reports he quit smoking March 2024. He denies any significant alcohol use. Code status: DNR/DNI (per patient request) Surrogate decision maker: Enedelia Villalpando (friend) Smoking packs per day: 0.5 Smoking cigarettes per day: 10.0 Years smoked: 25 Smoking pack-years: 12.50 Smoking status: Former smoker Second hand tobacco smoke exposure: No Alcohol intake: current Alcohol use details: Occasionally Substance use: never Substance use type: does not use Do You Feel Safe in your Home?: Yes Lack of Transportation: No Lack of Food: Never True Current Housing: I Have Housing Concerned About Future Housing: No Difficulty Paying Gas/Electric Bills: YES Difficulty Paying for Meds: No Currently Unemployed: No Education: High School Diploma/GED Difficulty w/ Childcare or Family Care: No Spiritual care concerns: No Meds Home Medications and Allergies Home Medications Medication Instructions Recorded Confirmed Type atorvastatin 20 mg tablet 20 mg PO DAILY 10/04/20 05/04/24 History diltiazem HCl 90 mg tablet 90 mg PO BID 07/17/22 05/04/24 History rivaroxaban 20 mg tablet (Xarelto) 20 mg PO DAILY 07/17/22 05/04/24 History metformin 1,000 mg tablet 1,000 mg PO BID #180 tabs 06/29/23 05/04/24 Rx valsartan 320 mg tablet 320 mg PO DAILY #90 tabs 06/29/23 05/04/24 Rx folic acid 1 mg tablet 1 mg PO DAILY #90 tabs 07/07/23 05/04/24 Rx furosemide 40 mg tablet 40 mg PO DAILY #30 tabs 08/27/23 05/04/24 Rx montelukast 10 mg tablet 10 mg PO HS #30 tabs 08/27/23 05/04/24 Rx cetirizine 10 mg tablet 10 mg PO DAILY #90 tabs 10/26/23 05/04/24 Rx albuterol sulfate 90 mcg/actuation 1 puff inhalation Q4H PRN 12/09/23 05/04/24 Rx aerosol inhaler shortness of breath or wheezing #25.5 grams triamcinolone acetonide 0.1 % 1 applic topical BID #454 grams 12/09/23 05/04/24 Rx topical cream carvedilol 25 mg tablet 50 mg PO Q12H #360 tabs 02/23/24 05/04/24 Rx ipratropium 0.5 mg-albuterol 3 mg 3 ml inhalation QID PRN shortness 02/23/24 05/04/24 Rx (2.5 mg base)/3 mL nebulization of breath or wheezing #360 mL soln potassium chloride 20 mEq 20 meq PO DAILY #90 tabs 02/23/24 05/04/24 Rx tablet,extended release(part/cryst) doxycycline hyclate 100 mg tablet 100 mg PO DAILY #20 tabs 02/26/24 05/04/24 Rx tamsulosin 0.4 mg capsule 0.4 mg PO QHS #90 caps 03/03/24 05/04/24 Rx allopurinol 100 mg tablet 200 mg PO DAILY #180 tabs 04/26/24 05/04/24 Rx Allergies Allergy/AdvReac Type Severity Reaction Status Date / Time No Known Allergies Allergy Verified 02/26/24 08:13 Vital Signs Vital Signs - 24 hr 05/10/24 10:00 05/10/24 11:59 05/10/24 13:53 Temperature 36.0 C L Pulse Rate 80 80 Respiratory Rate 16 20 Blood Pressure 136/78 Pulse Oximetry 96 Oxygen Delivery Room Air Fraction of Inspired Oxygen 05/10/24 14:06 05/10/24 16:00 05/10/24 20:00 Temperature 36.4 C 36.9 C Pulse Rate 80 79 80 Respiratory Rate 20 20 18 Blood Pressure 156/82 H 141/74 H Pulse Oximetry 96 95 Oxygen Delivery Fraction of Inspired Oxygen 05/10/24 20:47 05/10/24 20:00 05/11/24 00:00 Temperature 36.7 C Pulse Rate 78 78 80 Respiratory Rate 18 18 22 H Blood Pressure 148/85 H Pulse Oximetry 95 97 Oxygen Delivery Room Air Fraction of Inspired Oxygen 21 05/11/24 02:27 05/11/24 02:33 05/11/24 04:00 Temperature 36.1 C L Pulse Rate 85 89 80 Respiratory Rate 18 18 22 H Blood Pressure 138/77 Pulse Oximetry 99 Oxygen Delivery Fraction of Inspired Oxygen 05/11/24 08:55 05/11/24 08:56 05/11/24 09:03 Temperature Pulse Rate 80 81 Respiratory Rate 18 18 Blood Pressure Pulse Oximetry 93 Oxygen Delivery Room Air Fraction of Inspired Oxygen 05/11/24 08:00 Temperature 36.4 C L Pulse Rate 80 Respiratory Rate 16 Blood Pressure 142/86 H Pulse Oximetry 99 Oxygen Delivery Fraction of Inspired Oxygen Exam Narrative: Exam today consisted with him being awake alert able to follow all the verbal commands appropriately and aware of the clinical situation as mentioned. His speech is not dysphasic not dysarthric not dysphonic. While resting in bed he is noted to have the resting tremor of the left hand. he is able to track the visual stimuli without any nystagmus and there is no ptosis of upper eyelids pupils are round regular, feels the vision are full in all 4 quadrants , face is symmetrical on grimace and smile, tongue and oral cavity with no fasciculation, he is able to move the left side better than the right and the reflexes are sluggish to absent in the lower extremities. Results Labs 05/11/24 06:09 05/11/24 06:09 Labs: Short CBC 05/11/24 Range/Units 06:09 WBC 8.6 (4.5-10.0) K/mm3 Hgb 9.0 L (14.0-18.0) g/dL Hct 29.7 L (42.0-52.0) % Plt Count 290 (150-375) k/mm3 BMP 05/11/24 06:09 Sodium 137 Potassium 3.4 Chloride 106 Carbon Dioxide 25 BUN 30 H Creatinine 1.50 H Glucose 169 H Calcium 8.9 Liver Function 05/11/24 Range/Units 06:09 Total Bilirubin 1.2 (0.2-1.3) mg/dL AST 29 (17-59) U/L ALT 26 (6-50) U/L Alkaline Phosphatase 140 H (38-126) U/L Albumin 3.2 L (3.5-5.1) g/dL
[2024-05-11 12:23] LABS: Glucose Point of Care 171 mg/dl (65-105)
--- NOTE | 2024-05-11 13:55 | P.PNNP_ITS ---
Progress Note: A&P Assessment and Plan (1) Acute kidney injury: Code(s): N17.9 - Acute kidney failure, unspecified Status: Acute Assessment and Plan: * slow improvement if not back to baseline * as noted by admission labs -- creatinine 3.40mg/dl * evaluation to date noted: * CT scan of the abdomen/pelvis did not show any hydronephrosis * renal ultrasound normal * urine electrolytes prerenal * urine eosinophils negative * CPK mildly elevated - follow trend * UA with 2+ protein and 1+ blood * suspect multifactorial etiology * hypotension/hemodynamic instability on admission * sepsis/infection (bacteremia) * rhabdomyolysis * element of disease progression (?) * making reasonable urine output * follow trend of repeat labs and UOP (2) Stage 3a chronic kidney disease: Code(s): N18.31 - Chronic kidney disease, stage 3a Status: Chronic Assessment and Plan: * creatinine running ~ 1.3 - 1.4mg/dl (although last labs done are from 2020) * presumably secondary to hypertension, diabetes, and vascular disease * cannot discount an element of CKD progression (since last labs available are from 3 years ago....) (3) Sepsis: Code(s): A41.9 - Sepsis, unspecified organism Status: Acute Assessment and Plan: * as noted on presentation with AMS, high fevers, lactic acidosis, and tachycardia * s/p aggressive IVF resuscitation * s/p bicarb IVFs for acidosis * follow culture data * 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 * repeat cultures are negative so far * wound cultures with Staphylococcus aureus and Streptococcus constellatus * on antibiotics * continue supportive therapy (4) Acute CVA (cerebrovascular accident): Code(s): I63.9 - Cerebral infarction, unspecified Status: Acute Assessment and Plan: * presentation with AMS as well as facial droop + weakness * admission head CT showed acute infarct involving a portion of the right MCA territory * not a candidate for tPA as unclear when he was last at baseline * found on the floor - unclear duration as well * Neurology following (5) Diabetic foot ulcer: Qualifiers: Diabetes mellitus type: type 2 Diabetic foot ulcer location: midfoot Laterality: right Non-pressure ulcer stage: with muscle involvement without evidence of necrosis Qualified Code(s): E11.621 - Type 2 diabetes mellitus with foot ulcer; L97.415 - Non-pressure chronic ulcer of right heel and midfoot with muscle involvement without evidence of necrosis Code(s): E11.621 - Type 2 diabetes mellitus with foot ulcer; L97.509 - Non-pressure chronic ulcer of other part of unspecified foot with unspecified severity Status: Acute Assessment and Plan: * extensive LE wounds on feet and heels * left foot x-ray showed no evidence of osteomyelitis * right foot x-ray showed soft tissue gas in the plantar aspect of the heel, no evidence of osteomyelitis * Surgery following * s/p debridement in OR on 05/06 * noted OSCAR results * may need further operative intervention (6) Hypertension: Code(s): I10 - Essential (primary) hypertension Status: Acute Assessment and Plan: * known history * BP medications were on hold due to sepsis and hypotension on admission * resume BP medications as tolerated * follow trend of hemodynamics (7) Type 2 diabetes mellitus: Code(s): E11.9 - Type 2 diabetes mellitus without complications Status: Acute Assessment and Plan: * on accu-cheks * glycemic control per hospitalist Will continue to follow. Subjective Date/time seen: 05/11/24 13:55 Interval history: Follow-up for acute kidney injury/acute renal failure on chronic kidney disease. No new issues or problems to report at this time; renal function/creatinine continues to improve with supportive therapy with good urine output noted; no apparent distress noted; no issues/events overnight or earlier this morning. Exam Narrative: General: WD/WN male in NAD Heart: normal S1 and S2; no rub Lungs: clear anteriorly Abdomen: soft, nontender, nondistended, positive bowel sounds Extremities: no cyanosis or clubbing; 1+ bilateral edema Skin: dressings over bilateral feet/LEs noted Objective Data Vital Signs Vital Signs: Vital Signs Temp Pulse Resp BP Pulse Ox O2 Del Method FiO2 05/11/24 13:50 80 18 05/11/24 12:00 97.6 F 79 18 136/82 99 05/11/24 08:00 97.5 F L 80 16 142/86 H 99 05/11/24 09:03 81 18 05/11/24 08:56 93 Room Air 05/11/24 08:55 80 18 Intake/Output Intake/Output: Intake & Output 05/09/24 05/10/24 05/11/24 05/12/24 23:59 23:59 23:59 23:59 Intake Total 1660 1395 2510 50 Output Total 455 670 3125 Balance 760 695 660 50 Meds/Results Medications: Active Medications Generic Name Dose Route Start Last Admin Trade Name Freq PRN Reason Stop Dose Admin Acetaminophen 650 mg 05/05/24 13:04 05/10/24 20:39 Acetaminophen 325 Mg Tablet PO 650 mg Q6H PRN Administration Mild Pain (1-3) or Fever Albuterol/Ipratropium 3 ml 05/04/24 01:39 05/08/24 00:02 Ipratropium 0.5 Mg/Albuterol Sulfate 2.5 Mg Ampul.Neb 3 Ml INHALATION 3 ml Q6HRT PRN Administration shortness of breath or wheezing Albuterol/Ipratropium 3 ml 05/05/24 08:40 05/12/24 02:20 Ipratropium 0.5 Mg/Albuterol Sulfate 2.5 Mg Ampul.Neb 3 Ml INHALATION 3 ml Q6HRT JHOANA Administration Amlodipine Besylate 2.5 mg 05/08/24 09:15 05/11/24 08:48 Amlodipine Besylate 2.5 Mg Tablet PO 2.5 mg QAM JHOANA Administration Aspirin 325 mg 05/05/24 09:00 05/11/24 08:44 Aspirin 325 Mg Tablet PO 325 mg DAILY@0800 JHOANA Administration Atorvastatin Calcium 40 mg 05/04/24 09:00 05/11/24 08:48 Atorvastatin 40 Mg Tablet PO 40 mg DAILY JHOANA Administration Dextrose 12.5 gm 05/04/24 01:34 Dextrose 50% 25 Gm/50 Ml Syringe IV PUSH PRN PRN Hypoglycemia Protocol Diphenhydramine HCl 12.5 mg 05/04/24 15:08 05/07/24 23:39 Diphenhydramine Hcl Elixir 12.5 Mg/5 Ml Udc PO 12.5 mg Q6H PRN Administration Itching Folic Acid 1 mg 05/11/24 09:00 05/11/24 08:48 Folic Acid 1 Mg Tablet PO 1 mg DAILY JHOANA Administration Glucagon 1 mg 05/04/24 01:34 Glucagon For Inj 1 Mg Vial IM PRN PRN Hypoglycemia Protocol Glucose 15 gm 05/04/24 01:34 Glucose Oral Gel 15 Gm Of Glucse In 37.5 Gm Tube PO PRN PRN Hypoglycemia Protocol Guaifenesin/Dextromethorphan 10 ml 05/05/24 08:37 05/10/24 20:43 Guaifenesin/Dextromethorphan 10 Ml Udc PO 10 ml Q4H PRN Administration Cough Dextrose 1,000 mls @ 100 mls/hr 05/04/24 01:34 Dextrose 5% 1,000 Ml IVPB PRN PRN Hypoglycemia Protocol Piperacillin/Tazobactam/Dextrose 3.375 gm in 50 mls @ 100 mls/hr 05/10/24 18:00 05/12/24 01:05 Zosyn 3.375 Gm/Ns 50 Ml IVPB Infused Q6HR JHOANA Infusion Insulin Aspart 3 - 6 units 05/08/24 08:00 05/11/24 17:18 Insulin Aspart (*Bkc) 100 Units/Ml SUB-Q Not Given TIDWM JHOANA Protocol Insulin Aspart 8 units 05/09/24 17:00 05/11/24 17:25 Insulin Aspart (*Bkc) 100 Units/Ml SUB-Q 8 units TIDWM JHOANA Administration Insulin Glargine 20 units 05/10/24 21:00 05/11/24 21:29 Insulin Glargine (*Bkc) 100 Units/Ml SUB-Q 20 units HS JHOANA Administration Loratadine 10 mg 05/04/24 08:51 05/04/24 11:45 Loratadine 10 Mg Tablet PO 10 mg QAM PRN Administration itching Montelukast Sodium 10 mg 05/10/24 21:00 05/11/24 21:28 Montelukast Sodium 10 Mg Tablet PO 10 mg HS JHOANA Administration Ondansetron HCl 4 mg 05/03/24 23:51 Ondansetron Inj 4 Mg/2 Ml Vial IV PUSH Q4H PRN Nausea Pantoprazole Sodium 40 mg 05/04/24 09:00 05/11/24 08:42 Pantoprazole Sodium Iv 40 Mg Vial IV PUSH 40 mg QAM JHOANA Administration Sodium Hypochlorite 1 applic 05/06/24 09:00 05/11/24 21:29 Sod Hypochlorite 1/4 Strength 473 Ml TOPICAL 1 applic Q12HR JHOANA Administration Tamsulosin HCl 0.4 mg 05/10/24 21:00 05/11/24 21:28 Tamsulosin Hcl 0.4 Mg Capsule PO 0.4 mg QHS JHOANA Administration Triamcinolone Acetonide 1 applic 05/04/24 09:00 05/11/24 16:44 Triamcinolone Acet 0.1% Cream 80 Gm Tube TOPICAL 1 applic BID JHOANA Administration Radiology Results: ITS Impressions Head CT 05/03/24 20:56 IMPRESSION: Acute infarct involving a portion of the right MCA territory. Results reported telephonically to Dr. Duong by Dr. Langford at 9:01 PM on 05/03/2024. Cervical Spine CT 05/03/24 21:01 IMPRESSION: No acute fracture or traumatic malalignment in the cervical spine. Abdomen/Pelvis CT 05/03/24 21:06 IMPRESSION: No acute abdominopelvic process detected. Foot X-Ray 05/04/24 07:08 IMPRESSION: 1. Soft tissue gas in the plantar aspect of the heel. No evidence of osteomyelitis. Carotid Doppler Study 05/04/24 14:15 IMPRESSION: 1. <50% stenosis in the right internal carotid artery. 2. <50% stenosis in the left internal carotid artery. Renal Ultrasound 05/04/24 14:16 IMPRESSION: No definite abnormality. Ankle Brachial Index 05/08/24 06:55 IMPRESSION: 1. Decreased TBIs and normal ABIs, consistent with arterial occlusive disease. Note that ABIs may be overestimated if arteries are calcified. Chest X-Ray 05/09/24 13:15 IMPRESSION: 1. Mild atelectasis in right lower lung zone. Labs Labs: Laboratory Tests 05/11/24 06:09 05/11/24 06:09 Calcium 8.9 Magnesium 1.7 Total Bilirubin 1.2 AST 29 ALT 26 Alkaline Phosphatase 140 H Total Protein 7.0 Albumin 3.2 L Microbiology 05/06/24 14:31 Blood Blood Culture - Final
--- NOTE | 2024-05-11 16:28 | P.PNGS_ITS ---
Progress Note: A&P Assessment and Plan (1) Diabetic foot ulcer: Qualifiers: Diabetes mellitus type: type 2 Diabetic foot ulcer location: midfoot Laterality: right Non-pressure ulcer stage: with muscle involvement without evidence of necrosis Qualified Code(s): E11.621 - Type 2 diabetes mellitus with foot ulcer; L97.415 - Non-pressure chronic ulcer of right heel and midfoot with muscle involvement without evidence of necrosis Code(s): E11.621 - Type 2 diabetes mellitus with foot ulcer; L97.509 - Non-pressure chr onic ulcer of other part of unspecified foot with unspecified severity Status: Acute Assessment and Plan: The right heel ulcer is extensive with a large portion of the heel bone exposed following surgical debridement and his right foot is likely not salvageable. We have already discussed the recommendation of proceeding with a right below knee amputation with the patient. All details of the procedure, including risks, benefits, alternatives, expected recovery and wound care following the procedure were discussed. We also discussed the possibility of phantom limb pain following this surgery. We also discussed that the process of being fitted for a prosthesis would not be until he is completely healed from the surgery in the future as an outpatient, which he understands. All of his questions were answered. We also asked Neurology to give their recommendations in regards to timing of the BKA with his acute stroke. They have given approval to proceed during this hospitalization. We will make him NPO after midnight and proceed with the right BKA tomorrow by Dr. Ta. Plan I have discussed the patient's case and plan of care with Dr. Ta. Subjective Subjective Date/Time Seen: 05/11/24 16:28 Patient reports: no new complaints and afebrile Interval history: No acute events overnight. Patient is seen with his sister at the bedside. White blood cell count normalized. Exam Const: General: comfortable and no acute distress Orientation/consciousness: patient oriented x3 Skin: Other: Bilateral lower extremities with erythema and edema nearly resolved in the lower legs. There are gauze dressings in place on bilateral feet that are dry and intact, which were changed by nursing before my arrival. Objective Data Vital Signs Vital Signs: Vital Signs - 24 hr 05/10/24 20:00 05/10/24 20:47 05/10/24 20:00 Temperature 98.5 F Pulse Rate 80 78 78 Respiratory Rate 18 18 18 Blood Pressure 141/74 H Pulse Oximetry 95 95 Oxygen Delivery Room Air Fraction of Inspired Oxygen 21 05/11/24 00:00 05/11/24 02:27 05/11/24 02:33 Temperature 98.1 F Pulse Rate 80 85 89 Respiratory Rate 22 H 18 18 Blood Pressure 148/85 H Pulse Oximetry 97 Oxygen Delivery Fraction of Inspired Oxygen 05/11/24 04:00 05/11/24 08:55 05/11/24 08:56 Temperature 96.9 F L Pulse Rate 80 80 Respiratory Rate 22 H 18 Blood Pressure 138/77 Pulse Oximetry 99 93 Oxygen Delivery Room Air Fraction of Inspired Oxygen 05/11/24 09:03 05/11/24 08:00 05/11/24 12:00 Temperature 97.5 F L 97.6 F Pulse Rate 81 80 79 Respiratory Rate 18 16 18 Blood Pressure 142/86 H 136/82 Pulse Oximetry 99 99 Oxygen Delivery Fraction of Inspired Oxygen 05/11/24 13:59 05/11/24 14:06 Temperature Pulse Rate 80 80 Respiratory Rate 18 18 Blood Pressure Pulse Oximetry Oxygen Delivery Fraction of Inspired Oxygen Intake/Output Intake/Output: Intake & Output 05/08/24 05/09/24 05/10/24 05/11/24 23:59 23:59 23:59 23:59 Intake Total 2090 1660 1245 1220 Output Total 1050 570 336 0939 Balance 1040 760 545 20 Meds/Results Medications: Active Medications Generic Name Dose Route Start Last Admin Trade Name Freq PRN Reason Stop Dose Admin Acetaminophen 650 mg 05/05/24 13:04 05/10/24 20:39 Acetaminophen 325 Mg Tablet PO 650 mg Q6H PRN Administration Mild Pain (1-3) or Fever Albuterol/Ipratropium 3 ml 05/04/24 01:39 05/08/24 00:02 Ipratropium 0.5 Mg/Albuterol Sulfate 2.5 Mg Ampul.Neb 3 Ml INHALATION 3 ml Q6HRT PRN Administration shortness of breath or wheezing Albuterol/Ipratropium 3 ml 05/05/24 08:40 05/11/24 13:56 Ipratropium 0.5 Mg/Albuterol Sulfate 2.5 Mg Ampul.Neb 3 Ml INHALATION 3 ml Q6HRT JHOANA Administration Amlodipine Besylate 2.5 mg 05/08/24 09:15 05/11/24 08:48 Amlodipine Besylate 2.5 Mg Tablet PO 2.5 mg QAM JHOANA Administration Aspirin 325 mg 05/05/24 09:00 05/11/24 08:44 Aspirin 325 Mg Tablet PO 325 mg DAILY@0800 JHOANA Administration Atorvastatin Calcium 40 mg 05/04/24 09:00 05/11/24 08:48 Atorvastatin 40 Mg Tablet PO 40 mg DAILY JHOANA Administration Dextrose 12.5 gm 05/04/24 01:34 Dextrose 50% 25 Gm/50 Ml Syringe IV PUSH PRN PRN Hypoglycemia Protocol Diphenhydramine HCl 12.5 mg 05/04/24 15:08 05/07/24 23:39 Diphenhydramine Hcl Elixir 12.5 Mg/5 Ml Udc PO 12.5 mg Q6H PRN Administration Itching Folic Acid 1 mg 05/11/24 09:00 05/11/24 08:48 Folic Acid 1 Mg Tablet PO 1 mg DAILY JHOANA Administration Glucagon 1 mg 05/04/24 01:34 Glucagon For Inj 1 Mg Vial IM PRN PRN Hypoglycemia Protocol Glucose 15 gm 05/04/24 01:34 Glucose Oral Gel 15 Gm Of Glucse In 37.5 Gm Tube PO PRN PRN Hypoglycemia Protocol Guaifenesin/Dextromethorphan 10 ml 05/05/24 08:37 05/10/24 20:43 Guaifenesin/Dextromethorphan 10 Ml Udc PO 10 ml Q4H PRN Administration Cough Dextrose 1,000 mls @ 100 mls/hr 05/04/24 01:34 Dextrose 5% 1,000 Ml IVPB PRN PRN Hypoglycemia Protocol Piperacillin/Tazobactam/Dextrose 3.375 gm in 50 mls @ 100 mls/hr 05/10/24 18:00 05/11/24 12:48 Zosyn 3.375 Gm/Ns 50 Ml IVPB Infused Q6HR JHOANA Infusion Insulin Aspart 3 - 6 units 05/08/24 08:00 05/11/24 12:02 Insulin Aspart (*Bkc) 100 Units/Ml SUB-Q Not Given TIDWM [facility] Protocol Insulin Aspart 8 units 05/09/24 17:00 05/11/24 12:17 Insulin Aspart (*Bkc) 100 Units/Ml SUB-Q 8 units TIDWM JHOANA Administration Insulin Glargine 20 units 05/10/24 21:00 05/10/24 21:20 Insulin Glargine (*Bkc) 100 Units/Ml SUB-Q Not Given HS JHOANA Loratadine 10 mg 05/04/24 08:51 05/04/24 11:45 Loratadine 10 Mg Tablet PO 10 mg QAM PRN Administration itching Montelukast Sodium 10 mg 05/10/24 21:00 05/10/24 20:39 Montelukast Sodium 10 Mg Tablet PO 10 mg HS JHOANA Administration Ondansetron HCl 4 mg 05/03/24 23:51 Ondansetron Inj 4 Mg/2 Ml Vial IV PUSH Q4H PRN Nausea Pantoprazole Sodium 40 mg 05/04/24 09:00 05/11/24 08:42 Pantoprazole Sodium Iv 40 Mg Vial IV PUSH 40 mg QAM JHOANA Administration Sodium Hypochlorite 1 applic 05/06/24 09:00 05/11/24 08:48 Sod Hypochlorite 1/4 Strength 473 Ml TOPICAL 1 applic Q12HR JHOANA Administration Tamsulosin HCl 0.4 mg 05/10/24 21:00 05/10/24 20:39 Tamsulosin Hcl 0.4 Mg Capsule PO 0.4 mg QHS JHOANA Administration Triamcinolone Acetonide 1 applic 05/04/24 09:00 05/11/24 08:48 Triamcinolone Acet 0.1% Cream 80 Gm Tube TOPICAL 1 applic BID JHOANA Administration Radiology Results: ITS Impressions Head CT 05/03/24 20:56 IMPRESSION: Acute infarct involving a portion of the right MCA territory. Results reported telephonically to Dr. Duong by Dr. Langford at 9:01 PM on 05/03/2024. Cervical Spine CT 05/03/24 21:01 IMPRESSION: No acute fracture or traumatic malalignment in the cervical spine. Abdomen/Pelvis CT 05/03/24 21:06 IMPRESSION: No acute abdominopelvic process detected. Foot X-Ray 05/04/24 07:08 IMPRESSION: 1. Soft tissue gas in the plantar aspect of the heel. No evidence of osteomyelitis. Carotid Doppler Study 05/04/24 14:15 IMPRESSION: 1. <50% stenosis in the right internal carotid artery. 2. <50% stenosis in the left internal carotid artery. Renal Ultrasound 05/04/24 14:16 IMPRESSION: No definite abnormality. Ankle Brachial Index 05/08/24 06:55 IMPRESSION: 1. Decreased TBIs and normal ABIs, consistent with arterial occlusive disease. Note that ABIs may be overestimated if arteries are calcified. Chest X-Ray 05/09/24 13:15 IMPRESSION: 1. Mild atelectasis in right lower lung zone. Labs Labs: Laboratory Results - last 24 hr 05/10/24 05/11/24 05/11/24 20:10 06:09 08:00 WBC 8.6 RBC 2.77 L Hgb 9.0 L Hct 29.7 L MCV 107.2 H D MCH 32.5 MCHC 30.3 L RDW 14.5 Plt Count 290 MPV 10.7 H Immature Gran % (Auto) 0.8 H Neut % (Auto) 75.1 H Lymph % (Auto) 13.6 L Scurry % (Auto) 7.8 Eos % (Auto) 2.2 Baso % (Auto) 0.5 Lymph # (Auto) 1.17 Scurry # (Auto) 0.7 H Eos # (Auto) 0.2 Baso # (Auto) 0.0 Abs Immat Gran (auto) 0.07 H Absolute Neuts (auto) 6.4 Absolute Nucleated RBC 0.000 Nucleated RBC % 0.0 Platelet Estimate Adequate Macrocytosis 1+ Crenated Cell 1+ Schistocytes None seen Sodium 137 Potassium 3.4 Chloride 106 Carbon Dioxide 25 Anion Gap 6 BUN 30 H Creatinine 1.50 H Estim Creat Clear Calc 63 Estimated GFR 47 L Glucose 169 H POC Capillary Glucose 97 147 H Calcium 8.9 Magnesium 1.7 Total Bilirubin 1.2 AST 29 ALT 26 Alkaline Phosphatase 140 H Total Protein 7.0 Albumin 3.2 L 05/11/24 12:01 WBC RBC Hgb Hct MCV MCH MCHC RDW Plt Count MPV Immature Gran % (Auto) Neut % (Auto) Lymph % (Auto) Scurry % (Auto) Eos % (Auto) Baso % (Auto) Lymph # (Auto) Scurry # (Auto) Eos # (Auto) Baso # (Auto) Abs Immat Gran (auto) Absolute Neuts (auto) Absolute Nucleated RBC Nucleated RBC % Platelet Estimate Macrocytosis Crenated Cell Schistocytes Sodium Potassium Chloride Carbon Dioxide Anion Gap BUN Creatinine Estim Creat Clear Calc Estimated GFR Glucose POC Capillary Glucose 171 H Calcium Magnesium Total Bilirubin AST ALT Alkaline Phosphatase Total Protein Albumin
[2024-05-11 17:18] LABS: Glucose Point of Care 170 mg/dl (65-105)
[2024-05-11 20:21] LABS: Glucose Point of Care 150 mg/dl (65-105)
--- NOTE | 2024-05-11 21:21 | P.PNIM_ITS ---
Progress Note: A&P Assessment and Plan (1) Acute CVA (cerebrovascular accident): Code(s): I63.9 - Cerebral infarction, unspecified Status: Acute Assessment and Plan: 05/03: Patient presented with altered mental status, noted to have some facial droop and weakness. - Head CT showed acute infarct involving a portion of the right MCA territory -patient not a candidate for tPA as last well known time is unavailable -patient was found on the floor, with altered mental status, has not been seen by anybody for approximately 10 days and spoke to a friend 2 days prior to coming to the ER. This is according to the records -continue statin, aspirin -appreciate Neurology evaluation -patient has a pacemaker so not a candidate for MRI. Carotid ultrasound less than 50% narrowing on both sides Echocardiogram with left ventricular hypertrophy ejection fraction of 40-45%. Will start ARB if BP tolerates and renal function normalizes. PT/OT. Off Xarelto but resume when okay with surgery. (2) Sepsis: Code(s): A41.9 - Sepsis, unspecified organism Status: Acute Assessment and Plan: Patient presented with altered mental status, fevers of 105? F, elevated lactic acid of 5.3, tachycardia -patient was given 30 mL/kg IV fluid bolus -repeat lactic was 1.8 -mild elevation in troponin is likely related to ischemic demand as patient denies any chest pain, EKG did not show any ST elevations which showed paced rhythm Was treated with sodium bicarb switched to oral bicarb. Blood culture Gram-positive cocci in clusters. Identified as gemella morbillorum. Repeat blood culture NGTD. Discontinued cefepime and vancomycin and was switched to linezolid and Zosyn Did not require any pressors Wound culture with Bacteroides, Staphylococcus aureus and Streptococcus constellatus. Continue Zosyn. Linezolid stopped 05/10 (3) Diabetic foot ulcer: Qualifiers: Diabetes mellitus type: type 2 Diabetic foot ulcer location: midfoot Laterality: right Non-pressure ulcer stage: with muscle involvement without evidence of necrosis Qualified Code(s): E11.621 - Type 2 diabetes mellitus with foot ulcer; L97.415 - Non-pressure chronic ulcer of right heel and midfoot with muscle involvement without evidence of necrosis Code(s): E11.621 - Type 2 diabetes mellitus with foot ulcer; L97.509 - Non-pressure chronic ulcer of other part of unspecified foot with unspecified severity Status: Acute Assessment and Plan: Patient has bilateral diabetic foot ulcers R>L. -Left foot x-ray showed no evidence of osteomyelitis -Right foot x-ray showed soft tissue gas in the plantar aspect of the heel, no evidence of osteomyelitis -surgery consulted and status post debridement 05/06/2024; bone is exposed to the right heel Surgery planning right BKA tomorrow (4) Type 2 diabetes mellitus: Code(s): E11.9 - Type 2 diabetes mellitus without complications Status: Acute Assessment and Plan: A1c 8.4%. The patient's blood glucose was reviewed on Glucose remains well controlled. Continue AccuCheks covering with sliding scale. Hypoglycemia protocol available as needed. Continue to follow (5) Acute kidney injury: Code(s): N17.9 - Acute kidney failure, unspecified Status: Acute Assessment and Plan: 05/03: Patient presented with acute kidney injury on admission, creatinine of 3.40. (baseline creatinine is 0.90-1.40 in September 2020) -patient has a history of hypertension, diabetes, is on Lasix, valsartan at home. Unknown how long he was hypotensive prior to coming to the hospital, could be related to infection, ATN -patient received 30 mL/kg IV fluid bolus Received IV fluids and also received albumin for volume expansion given that he has a history of heart failure -CK levels trending down but levels peaked at 735 -CT scan of the abdomen and pelvis did not show any hydronephrosis. renal ultrasound with no acute abnormality -nephrology was consulted Cr trending down -monitor urine output, renal function and electrolytes. (6) Rhabdomyolysis: Qualifiers: Rhabdomyolysis type: non-traumatic Qualified Code(s): M62.82 - Rhabdomyolysis Code(s): M62.82 - Rhabdomyolysis Status: Acute Assessment and Plan: Patient rolled off his couch and was on the floor for unknown amount of time -elevated CK levels to 735 -CK levels trending down (7) Parkinsons disease: Code(s): G20 - Parkinson's disease Status: Acute Assessment and Plan: History of Parkinson's disease Not on treatment Follow (8) Hypertension: Code(s): I10 - Essential (primary) hypertension Status: Acute Assessment and Plan: Patient's blood pressure was reviewed on 05/11 Blood pressure remains well controlled. Will continue to monitor (9) Asthma: Code(s): J45.909 - Unspecified asthma, uncomplicated Status: Acute Assessment and Plan: Patient complaining of dry cough, wheezing, states he has a history of asthma and takes inhaler p.r.n. Patient on bronchodilator Plan DVT prophylaxis: SCDs Code Status: Do not resuscitate Subjective Date/time seen: 05/11/24 21:21 Interval history: 63yo male with CHF, Parkinson, HTN, AFlutter on Xarelto, CAD here after being found down. Assumng care. Chart reviewed. Having BMs. No abd pain. No n/v. Up to the chair yesterday. He has been compliant with Xarelto at home. Exam Narrative: AF 97.7 134/87 80 18 95% ra Gen - NARD Chest - Clear anteriorly and in the flanks. CV - RRR S1/S2 Abd - Soft, NT/ND, Positive BS Ext - trace pedal edema. Bilaeral feet dressings clean and dry. Neuro - Alert and oriented x4. Left UE>LE weakness. Psych - Nml mood and affect Skin - Warm and dry Objective Data Vital Signs Vital Signs: Vital Signs - 24 hr 05/11/24 00:00 05/11/24 02:27 05/11/24 02:33 Temperature 98.1 F Pulse Rate 80 85 89 Respiratory Rate 22 H 18 18 Blood Pressure 148/85 H Pulse Oximetry 97 Oxygen Delivery Fraction of Inspired Oxygen 05/11/24 04:00 05/11/24 08:55 05/11/24 08:56 Temperature 96.9 F L Pulse Rate 80 80 Respiratory Rate 22 H 18 Blood Pressure 138/77 Pulse Oximetry 99 93 Oxygen Delivery Room Air Fraction of Inspired Oxygen 05/11/24 09:03 05/11/24 08:00 05/11/24 12:00 Temperature 97.5 F L 97.6 F Pulse Rate 81 80 79 Respiratory Rate 18 16 18 Blood Pressure 142/86 H 136/82 Pulse Oximetry 99 99 Oxygen Delivery Fraction of Inspired Oxygen 05/11/24 13:59 05/11/24 14:06 05/11/24 16:00 Temperature 98.1 F Pulse Rate 80 80 80 Respiratory Rate 18 18 18 Blood Pressure 135/78 Pulse Oximetry 97 Oxygen Delivery Fraction of Inspired Oxygen 05/11/24 20:00 05/11/24 20:00 Temperature 97.7 F Pulse Rate 80 80 Respiratory Rate 18 18 Blood Pressure 134/87 Pulse Oximetry 97 95 Oxygen Delivery Room Air Fraction of Inspired Oxygen 21 Intake/Output Intake/Output: Intake & Output 05/08/24 05/09/24 05/10/24 05/11/24 23:59 23:59 23:59 23:59 Intake Total 2090 1660 1245 2510 Output Total 1050 250 819 4360 Balance 1040 760 545 910 Meds/Results Medications: Active Medications Generic Name Dose Route Start Last Admin Trade Name Freq PRN Reason Stop Dose Admin Acetaminophen 650 mg 05/05/24 13:04 05/10/24 20:39 Acetaminophen 325 Mg Tablet PO 650 mg Q6H PRN Administration Mild Pain (1-3) or Fever Albuterol/Ipratropium 3 ml 05/04/24 01:39 05/08/24 00:02 Ipratropium 0.5 Mg/Albuterol Sulfate 2.5 Mg Ampul.Neb 3 Ml INHALATION 3 ml Q6HRT PRN Administration shortness of breath or wheezing Albuterol/Ipratropium 3 ml 05/05/24 08:40 05/11/24 13:56 Ipratropium 0.5 Mg/Albuterol Sulfate 2.5 Mg Ampul.Neb 3 Ml INHALATION 3 ml Q6HRT JHOANA Administration Amlodipine Besylate 2.5 mg 05/08/24 09:15 05/11/24 08:48 Amlodipine Besylate 2.5 Mg Tablet PO 2.5 mg QAM JHOANA Administration Aspirin 325 mg 05/05/24 09:00 05/11/24 08:44 Aspirin 325 Mg Tablet PO 325 mg DAILY@0800 JHOANA Administration Atorvastatin Calcium 40 mg 05/04/24 09:00 05/11/24 08:48 Atorvastatin 40 Mg Tablet PO 40 mg DAILY JHOANA Administration Dextrose 12.5 gm 05/04/24 01:34 Dextrose 50% 25 Gm/50 Ml Syringe IV PUSH PRN PRN Hypoglycemia Protocol Diphenhydramine HCl 12.5 mg 05/04/24 15:08 05/07/24 23:39 Diphenhydramine Hcl Elixir 12.5 Mg/5 Ml Udc PO 12.5 mg Q6H PRN Administration Itching Folic Acid 1 mg 05/11/24 09:00 05/11/24 08:48 Folic Acid 1 Mg Tablet PO 1 mg DAILY JHOANA Administration Glucagon 1 mg 05/04/24 01:34 Glucagon For Inj 1 Mg Vial IM PRN PRN Hypoglycemia Protocol Glucose 15 gm 05/04/24 01:34 Glucose Oral Gel 15 Gm Of Glucse In 37.5 Gm Tube PO PRN PRN Hypoglycemia Protocol Guaifenesin/Dextromethorphan 10 ml 05/05/24 08:37 05/10/24 20:43 Guaifenesin/Dextromethorphan 10 Ml Udc PO 10 ml Q4H PRN Administration Cough Dextrose 1,000 mls @ 100 mls/hr 05/04/24 01:34 Dextrose 5% 1,000 Ml IVPB PRN PRN Hypoglycemia Protocol Piperacillin/Tazobactam/Dextrose 3.375 gm in 50 mls @ 100 mls/hr 05/10/24 18:00 05/11/24 17:53 Zosyn 3.375 Gm/Ns 50 Ml IVPB Infused Q6HR JHOANA Infusion Insulin Aspart 3 - 6 units 05/08/24 08:00 05/11/24 17:18 Insulin Aspart (*Bkc) 100 Units/Ml SUB-Q Not Given TIDWM JHOANA Protocol Insulin Aspart 8 units 05/09/24 17:00 05/11/24 17:25 Insulin Aspart (*Bkc) 100 Units/Ml SUB-Q 8 units TIDWM JHOANA Administration Insulin Glargine 20 units 05/10/24 21:00 05/10/24 21:20 Insulin Glargine (*Bkc) 100 Units/Ml SUB-Q Not Given HS JHOANA Loratadine 10 mg 05/04/24 08:51 05/04/24 11:45 Loratadine 10 Mg Tablet PO 10 mg QAM PRN Administration itching Montelukast Sodium 10 mg 05/10/24 21:00 05/10/24 20:39 Montelukast Sodium 10 Mg Tablet PO 10 mg HS JHOANA Administration Ondansetron HCl 4 mg 05/03/24 23:51 Ondansetron Inj 4 Mg/2 Ml Vial IV PUSH Q4H PRN Nausea Pantoprazole Sodium 40 mg 05/04/24 09:00 05/11/24 08:42 Pantoprazole Sodium Iv 40 Mg Vial IV PUSH 40 mg QAM JHOANA Administration Sodium Hypochlorite 1 applic 05/06/24 09:00 05/11/24 08:48 Sod Hypochlorite 1/4 Strength 473 Ml TOPICAL 1 applic Q12HR JHOANA Administration Tamsulosin HCl 0.4 mg 05/10/24 21:00 05/10/24 20:39 Tamsulosin Hcl 0.4 Mg Capsule PO 0.4 mg QHS JHOANA Administration Triamcinolone Acetonide 1 applic 05/04/24 09:00 05/11/24 16:44 Triamcinolone Acet 0.1% Cream 80 Gm Tube TOPICAL 1 applic BID JHOANA Administration Radiology Results: ITS Impressions Head CT 05/03/24 20:56 IMPRESSION: Acute infarct involving a portion of the right MCA territory. Results reported telephonically to Dr. Duong by Dr. Langford at 9:01 PM on 05/03/2024. Cervical Spine CT 05/03/24 21:01 IMPRESSION: No acute fracture or traumatic malalignment in the cervical spine. Abdomen/Pelvis CT 05/03/24 21:06 IMPRESSION: No acute abdominopelvic process detected. Foot X-Ray 05/04/24 07:08 IMPRESSION: 1. Soft tissue gas in the plantar aspect of the heel. No evidence of osteomyelitis. Carotid Doppler Study 05/04/24 14:15 IMPRESSION: 1. <50% stenosis in the right internal carotid artery. 2. <50% stenosis in the left internal carotid artery. Renal Ultrasound 05/04/24 14:16 IMPRESSION: No definite abnormality. Ankle Brachial Index 05/08/24 06:55 IMPRESSION: 1. Decreased TBIs and normal ABIs, consistent with arterial occlusive disease. Note that ABIs may be overestimated if arteries are calcified. Chest X-Ray 05/09/24 13:15 IMPRESSION: 1. Mild atelectasis in right lower lung zone. Labs Labs: Laboratory Results - last 24 hr 05/11/24 05/11/24 05/11/24 06:09 08:00 12:01 WBC 8.6 RBC 2.77 L Hgb 9.0 L Hct 29.7 L MCV 107.2 H D MCH 32.5 MCHC 30.3 L RDW 14.5 Plt Count 290 MPV 10.7 H Immature Gran % (Auto) 0.8 H Neut % (Auto) 75.1 H Lymph % (Auto) 13.6 L [place] % (Auto) 7.8 Eos % (Auto) 2.2 Baso % (Auto) 0.5 Lymph # (Auto) 1.17 [place] # (Auto) 0.7 H Eos # (Auto) 0.2 Baso # (Auto) 0.0 Abs Immat Gran (auto) 0.07 H Absolute Neuts (auto) 6.4 Absolute Nucleated RBC 0.000 Nucleated RBC % 0.0 Platelet Estimate Adequate Macrocytosis 1+ Crenated Cell 1+ Schistocytes None seen Sodium 137 Potassium 3.4 Chloride 106 Carbon Dioxide 25 Anion Gap 6 BUN 30 H Creatinine 1.50 H Estim Creat Clear Calc 63 Estimated GFR 47 L Glucose 169 H POC Capillary Glucose 147 H 171 H Calcium 8.9 Magnesium 1.7 Total Bilirubin 1.2 AST 29 ALT 26 Alkaline Phosphatase 140 H Total Protein 7.0 Albumin 3.2 L 05/11/24 05/11/24 17:04 20:17 WBC RBC Hgb Hct MCV MCH MCHC RDW Plt Count MPV Immature Gran % (Auto) Neut % (Auto) Lymph % (Auto) [place] % (Auto) Eos % (Auto) Baso % (Auto) Lymph # (Auto) [place] # (Auto) Eos # (Auto) Baso # (Auto) Abs Immat Gran (auto) Absolute Neuts (auto) Absolute Nucleated RBC Nucleated RBC % Platelet Estimate Macrocytosis Crenated Cell Schistocytes Sodium Potassium Chloride Carbon Dioxide Anion Gap BUN Creatinine Estim Creat Clear Calc Estimated GFR Glucose POC Capillary Glucose 170 H 150 H Calcium Magnesium Total Bilirubin AST ALT Alkaline Phosphatase Total Protein Albumin
[2024-05-11] MEDS: TAMSULOSIN HCL 0.4 MG CAPSULE PO (21:28)
[2024-05-11] MEDS: MONTELUKAST SODIUM 10 MG TABLET PO (21:28)
[2024-05-11] MEDS: INSULIN GLARGINE (*BKC) 100 UNITS/ML 20 UNITS SUB-Q (21:29)
[2024-05-12] VITALS (23 sets, daily range): BP systolic 122–155; BP diastolic 67–93; PULSE 72–90; RESP 14–20; TEMP 35.6–37.1; O2SAT 95–99
[2024-05-12] MEDS: PIPERACILLN/TAZ 3.375GM/NS50ML 3.375 GM/50 ML BAG IVPB ×4 (00:36→17:56)
[2024-05-12] MEDS: IPRATROPIUM 0.5 MG/ALBUTEROL SULFATE 2.5 MG AMPUL.NEB 3 ML INHALATION ×3 (02:20→20:31)
[2024-05-12 07:10] LABS: Hematocrit 27.6 % (42.0-52.0); Hemoglobin 8.6 g/dL (14.0-18.0); Mean Corpuscular HGB Conc 31.2 g/dl (32-36); Mean Corpuscular Volume 102.6 fl (80-100); Mean Platelet Volume 9.8 fl (7.4-10.4); Platelet Count Result 288 k/mm3 (150-375); Red Blood Count 2.69 M/mm3 (4.6-6.20); Red Cell Distribution Width 14.6 % (11.5-14.5); White Blood Count 9.3 K/mm3 (4.5-10.0)
[2024-05-12 07:19] LABS: Anion Gap 4 mmol/L (4-12); Blood Urea Nitrogen 26 mg/dL (9-20); Calcium 8.7 mg/dL (8.4-10.2); Carbon Dioxide 28 mmol/L (22-30); Chloride 106 mmol/L (98-107); Estimated CRCL calculation 60 ml/min; Estimated Glomerular Filt Rate 44; Glucose 173 mg/dL (65-110); Potassium 3.7 mmol/L (3.4-5.0); Sodium 138 mmol/L (137-145)
[2024-05-12 07:23] LABS: INR 1.2; Prothrombin Time 15.7 Seconds (11.1-14.7)
[2024-05-12 07:25] LABS: Partial Thromboplastin Time 44.3 Seconds (22.3-36.8)
[2024-05-12 08:28] LABS: Glucose Point of Care 166 mg/dl (65-105)
[2024-05-12] MEDS: amLODIPine BESYLATE 2.5 MG TABLET PO (08:57)
[2024-05-12] MEDS: PANTOPRAZOLE SODIUM IV 40 MG VIAL IV PUSH (08:59)
[2024-05-12 09:25] LABS: Folic Acid > 20.0 ng/mL (2.76->20)
[2024-05-12 11:14] LABS: Hematocrit 25.6 % (42.0-52.0); Hemoglobin 8.1 g/dL (14.0-18.0)
[2024-05-12] MEDS: SOD HYPOCHLORITE 1/4 STRENGTH 473 ML 1 APPLIC TOPICAL (12:25)
[2024-05-12 12:30] LABS: Glucose Point of Care 148 mg/dl (65-105)
--- NOTE | 2024-05-12 12:50 | P.PNNP_ITS ---
Progress Note: A&P Assessment and Plan (1) Acute kidney injury: Code(s): N17.9 - Acute kidney failure, unspecified Status: Acute Assessment and Plan: * slow improvement if not back to baseline * as noted by admission labs -- creatinine 3.40mg/dl * evaluation to date noted: * CT scan of the abdomen/pelvis did not show any hydronephrosis * renal ultrasound normal * urine electrolytes prerenal * urine eosinophils negative * CPK mildly elevated - follow trend * UA with 2+ protein and 1+ blood * suspect multifactorial etiology * hypotension/hemodynamic instability on admission * sepsis/infection (bacteremia) * rhabdomyolysis * element of disease progression (?) * making reasonable urine output * follow trend of repeat labs and UOP (2) Stage 3a chronic kidney disease: Code(s): N18.31 - Chronic kidney disease, stage 3a Status: Chronic Assessment and Plan: * creatinine running ~ 1.3 - 1.4mg/dl (although last labs done are from 2020) * presumably secondary to hypertension, diabetes, and vascular disease * cannot discount an element of CKD progression (since last labs available are from 3 years ago....) (3) Sepsis: Code(s): A41.9 - Sepsis, unspecified organism Status: Acute Assessment and Plan: * as noted on presentation with AMS, high fevers, lactic acidosis, and tachycardia * s/p aggressive IVF resuscitation * s/p bicarb IVFs for acidosis * follow culture data * 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 * repeat cultures are negative so far * wound cultures with Staphylococcus aureus and Streptococcus constellatus * on antibiotics * continue supportive therapy (4) Acute CVA (cerebrovascular accident): Code(s): I63.9 - Cerebral infarction, unspecified Status: Acute Assessment and Plan: * presentation with AMS as well as facial droop + weakness * admission head CT showed acute infarct involving a portion of the right MCA territory * not a candidate for tPA as unclear when he was last at baseline * found on the floor - unclear duration as well * Neurology following (5) Diabetic foot ulcer: Qualifiers: Diabetes mellitus type: type 2 Diabetic foot ulcer location: midfoot Laterality: right Non-pressure ulcer stage: with muscle involvement without evidence of necrosis Qualified Code(s): E11.621 - Type 2 diabetes mellitus with foot ulcer; L97.415 - Non-pressure chronic ulcer of right heel and midfoot with muscle involvement without evidence of necrosis Code(s): E11.621 - Type 2 diabetes mellitus with foot ulcer; L97.509 - Non-pressure chronic ulcer of other part of unspecified foot with unspecified severity Status: Acute Assessment and Plan: * extensive LE wounds on feet and heels * left foot x-ray showed no evidence of osteomyelitis * right foot x-ray showed soft tissue gas in the plantar aspect of the heel, no evidence of osteomyelitis * Surgery following * s/p debridement in OR on 05/06 * noted OSCAR results * may need further operative intervention (6) Hypertension: Code(s): I10 - Essential (primary) hypertension Status: Acute Assessment and Plan: * known history * BP medications were on hold due to sepsis and hypotension on admission * resume BP medications as tolerated * follow trend of hemodynamics (7) Type 2 diabetes mellitus: Code(s): E11.9 - Type 2 diabetes mellitus without complications Status: Acute Assessment and Plan: * on accu-cheks * glycemic control per hospitalist Will continue to follow. Subjective Date/time seen: 05/12/24 12:50 Interval history: Follow-up for acute kidney injury/acute renal failure on chronic kidney disease. Renal function/creatinine remains relatively stable at this time -- stable electrolytes and continues to make good urine output; noted plans for right BKA surgery later today; no apparent distress noted at this time; no issues/events overnight or earlier this morning. Exam Narrative: General: WD/WN male in NAD Heart: normal S1 and S2; no rub Lungs: clear anteriorly Abdomen: soft, nontender, nondistended, positive bowel sounds Extremities: no cyanosis or clubbing; trace - 1+ bilateral edema Skin: dressings over bilateral feet/LEs apparent Objective Data Vital Signs Vital Signs: Vital Signs Temp Pulse Resp BP Pulse Ox O2 Del Method FiO2 05/12/24 11:30 98.8 F 79 14 142/67 H 98 05/12/24 08:00 97.4 F L 79 20 148/74 H 98 05/12/24 08:43 81 18 05/12/24 08:36 80 18 05/12/24 08:36 96 Room Air 05/12/24 05:53 97.1 F L 79 18 148/87 H 95 05/12/24 04:00 97.6 F 73 18 136/82 95 12/05/24 02:28 83 18 05/12/24 02:20 81 18 05/12/24 00:00 97.8 F 72 18 132/84 96 05/11/24 21:55 78 18 05/11/24 21:46 90 Room Air 05/11/24 21:43 79 18 05/11/24 20:00 97.7 F 80 18 134/87 95 05/11/24 20:00 80 18 97 Room Air 21 05/11/24 16:00 98.1 F 80 18 135/78 97 05/11/24 14:06 80 18 05/11/24 13:59 80 18 Intake/Output Intake/Output: Intake & Output 05/09/24 05/10/24 05/11/24 05/12/24 23:59 23:59 23:59 23:59 Intake Total 1660 1395 2510 250 Output Total 979 028 7584 250 Balance 760 695 660 0 Meds/Results Medications: Active Medications Generic Name Dose Route Start Last Admin Trade Name Freq PRN Reason Stop Dose Admin Acetaminophen 650 mg 05/05/24 13:04 05/10/24 20:39 Acetaminophen 325 Mg Tablet PO 650 mg Q6H PRN Administration Mild Pain (1-3) or Fever Albuterol/Ipratropium 3 ml 05/04/24 01:39 05/08/24 00:02 Ipratropium 0.5 Mg/Albuterol Sulfate 2.5 Mg Ampul.Neb 3 Ml INHALATION 3 ml Q6HRT PRN Administration shortness of breath or wheezing Albuterol/Ipratropium 3 ml 05/05/24 08:40 05/12/24 08:36 Ipratropium 0.5 Mg/Albuterol Sulfate 2.5 Mg Ampul.Neb 3 Ml INHALATION 3 ml Q6HRT JHOANA Administration Amlodipine Besylate 2.5 mg 05/08/24 09:15 05/12/24 08:57 Amlodipine Besylate 2.5 Mg Tablet PO 2.5 mg QAM JHOANA Administration Aspirin 325 mg 05/05/24 09:00 05/11/24 08:44 Aspirin 325 Mg Tablet PO 325 mg DAILY@0800 JHOAAN Administration Atorvastatin Calcium 40 mg 05/04/24 09:00 05/11/24 08:48 Atorvastatin 40 Mg Tablet PO 40 mg DAILY JHOANA Administration Dextrose 12.5 gm 05/04/24 01:34 Dextrose 50% 25 Gm/50 Ml Syringe IV PUSH PRN PRN Hypoglycemia Protocol Diphenhydramine HCl 12.5 mg 05/04/24 15:08 05/07/24 23:39 Diphenhydramine Hcl Elixir 12.5 Mg/5 Ml Udc PO 12.5 mg Q6H PRN Administration Itching Folic Acid 1 mg 05/11/24 09:00 05/11/24 08:48 Folic Acid 1 Mg Tablet PO 1 mg DAILY JHOANA Administration Glucagon 1 mg 05/04/24 01:34 Glucagon For Inj 1 Mg Vial IM PRN PRN Hypoglycemia Protocol Glucose 15 gm 05/04/24 01:34 Glucose Oral Gel 15 Gm Of Glucse In 37.5 Gm Tube PO PRN PRN Hypoglycemia Protocol Guaifenesin/Dextromethorphan 10 ml 05/05/24 08:37 05/10/24 20:43 Guaifenesin/Dextromethorphan 10 Ml Udc PO 10 ml Q4H PRN Administration Cough Dextrose 1,000 mls @ 100 mls/hr 05/04/24 01:34 Dextrose 5% 1,000 Ml IVPB PRN PRN Hypoglycemia Protocol Piperacillin/Tazobactam/Dextrose 3.375 gm in 50 mls @ 100 mls/hr 05/10/24 18:00 05/12/24 12:32 Zosyn 3.375 Gm/Ns 50 Ml IVPB 100 mls/hr Q6HR JHOANA Administration Insulin Aspart 3 - 6 units 05/08/24 08:00 05/12/24 12:32 Insulin Aspart (*Bkc) 100 Units/Ml SUB-Q Not Given TIDWM [facility] Protocol Insulin Aspart 8 units 05/09/24 17:00 05/12/24 12:32 Insulin Aspart (*Bkc) 100 Units/Ml SUB-Q Not Given TIDWM JHOANA Insulin Glargine 20 units 05/10/24 21:00 05/11/24 21:29 Insulin Glargine (*Bkc) 100 Units/Ml SUB-Q 20 units HS JHOANA Administration Loratadine 10 mg 05/04/24 08:51 05/04/24 11:45 Loratadine 10 Mg Tablet PO 10 mg QAM PRN Administration itching Montelukast Sodium 10 mg 05/10/24 21:00 05/11/24 21:28 Montelukast Sodium 10 Mg Tablet PO 10 mg HS JHOANA Administration Ondansetron HCl 4 mg 05/03/24 23:51 Ondansetron Inj 4 Mg/2 Ml Vial IV PUSH Q4H PRN Nausea Pantoprazole Sodium 40 mg 05/04/24 09:00 05/12/24 08:59 Pantoprazole Sodium Iv 40 Mg Vial IV PUSH 40 mg QAM JHOANA Administration Sodium Hypochlorite 1 applic 05/06/24 09:00 05/12/24 12:25 Sod Hypochlorite 1/4 Strength 473 Ml TOPICAL 1 applic Q12HR JHOANA Administration Tamsulosin HCl 0.4 mg 05/10/24 21:00 05/11/24 21:28 Tamsulosin Hcl 0.4 Mg Capsule PO 0.4 mg QHS JHOANA Administration Triamcinolone Acetonide 1 applic 05/04/24 09:00 05/11/24 16:44 Triamcinolone Acet 0.1% Cream 80 Gm Tube TOPICAL 1 applic BID JHOANA Administration Radiology Results: ITS Impressions Head CT 05/03/24 20:56 IMPRESSION: Acute infarct involving a portion of the right MCA territory. Results reported telephonically to Dr. Duong by Dr. Langford at 9:01 PM on 05/03/2024. Cervical Spine CT 05/03/24 21:01 IMPRESSION: No acute fracture or traumatic malalignment in the cervical spine. Abdomen/Pelvis CT 05/03/24 21:06 IMPRESSION: No acute abdominopelvic process detected. Foot X-Ray 05/04/24 07:08 IMPRESSION: 1. Soft tissue gas in the plantar aspect of the heel. No evidence of osteomyelitis. Carotid Doppler Study 05/04/24 14:15 IMPRESSION: 1. <50% stenosis in the right internal carotid artery. 2. <50% stenosis in the left internal carotid artery. Renal Ultrasound 05/04/24 14:16 IMPRESSION: No definite abnormality. Ankle Brachial Index 05/08/24 06:55 IMPRESSION: 1. Decreased TBIs and normal ABIs, consistent with arterial occlusive disease. Note that ABIs may be overestimated if arteries are calcified. Chest X-Ray 05/09/24 13:15 IMPRESSION: 1. Mild atelectasis in right lower lung zone. Labs Labs: Laboratory Tests 05/12/24 11:08 05/12/24 06:57 Calcium 8.7 Vitamin B12 978.0 H Folate > 20.0 H Blood Type A Negative Antibody Screen Negative Microbiology 05/06/24 08:11 Foot Right Anaerobic Culture - Final Bacteroides thetaiotaomicron 05/06/24 08:11 Foot Right Aerobic Culture - Final Staphylococcus aureus Streptococcus constellatus 05/06/24 14:31 Blood Blood Culture - Final 05/06/24 14:31 Blood Blood Culture - Final
[2024-05-12] MEDS: LACTATED RINGERS 1,000 ML 30 ML IV CONT (13:15)
--- NOTE | 2024-05-12 13:23 | WPDHPUPDATE1 ---
History and Physical Update Update Date/Time: 05/12/24 13:23 History and Physical has been reviewed, including an updated exam of the patient. There are NO changes in the patient's condition. Risks, benefits, and alternatives have been discussed and questions answered. Patient agrees to proceed with procedure.
--- NOTE | 2024-05-12 13:39 | PM.IMPN ---
Progress Note: A&P Assessment and Plan (1) Acute CVA (cerebrovascular accident): Code(s): I63.9 - Cerebral infarction, unspecified Status: Acute Assessment and Plan: 05/03: Patient presented with altered mental status, noted to have some facial droop and weakness. - Head CT showed acute infarct involving a portion of the right MCA territory -patient not a candidate for tPA as last well known time is unavailable -patient was found on the floor, with altered mental status, has not been seen by anybody for approximately 10 days and spoke to a friend 2 days prior to coming to the ER. This is according to the records -continue statin, aspirin -appreciate Neurology evaluation -patient has a pacemaker so not a candidate for MRI. Carotid ultrasound less than 50% narrowing on both sides Echocardiogram with left ventricular hypertrophy ejection fraction of 40-45%. Will start ARB if BP tolerates and renal function normalizes. PT/OT. Off Xarelto but resume when okay with surgery. (2) Sepsis: Code(s): A41.9 - Sepsis, unspecified organism Status: Acute Assessment and Plan: Patient presented with altered mental status, fevers of 105? F, elevated lactic acid of 5.3, tachycardia -patient was given 30 mL/kg IV fluid bolus -repeat lactic was 1.8 -mild elevation in troponin is likely related to ischemic demand as patient denies any chest pain, EKG did not show any ST elevations which showed paced rhythm Was treated with sodium bicarb switched to oral bicarb. Blood culture Gram-positive cocci in clusters. Identified as gemella morbillorum. Repeat blood culture NGTD. Discontinued cefepime and vancomycin and was switched to linezolid and Zosyn Did not require any pressors Wound culture with Bacteroides, Staphylococcus aureus and Streptococcus constellatus. Continue Zosyn. Linezolid stopped 05/10 (3) Diabetic foot ulcer: Qualifiers: Diabetes mellitus type: type 2 Diabetic foot ulcer location: midfoot Laterality: right Non-pressure ulcer stage: with muscle involvement without evidence of necrosis Qualified Code(s): E11.621 - Type 2 diabetes mellitus with foot ulcer; L97.415 - Non-pressure chronic ulcer of right heel and midfoot with muscle involvement without evidence of necrosis Code(s): E11.621 - Type 2 diabetes mellitus with foot ulcer; L97.509 - Non-pressure chronic ulcer of other part of unspecified foot with unspecified severity Status: Acute Assessment and Plan: Patient has bilateral diabetic foot ulcers R>L. -Left foot x-ray showed no evidence of osteomyelitis -Right foot x-ray showed soft tissue gas in the plantar aspect of the heel, no evidence of osteomyelitis -surgery consulted and status post debridement 05/06/2024; bone is exposed to the right heel Patient underwent right BKA today. Continue routine post-op wound care. PT/OT to see (4) Acute kidney injury: Code(s): N17.9 - Acute kidney failure, unspecified Status: Acute Assessment and Plan: 05/03: Patient presented with acute kidney injury on admission, creatinine of 3.40. (baseline creatinine is 0.90-1.40 in September 2020) -patient has a history of hypertension, diabetes, is on Lasix, valsartan at home. Unknown how long he was hypotensive prior to coming to the hospital, could be related to infection, ATN -patient received 30 mL/kg IV fluid bolus Received IV fluids and also received albumin for volume expansion given that he has a history of heart failure -CK levels trending down but levels peaked at 735 -CT scan of the abdomen and pelvis did not show any hydronephrosis. renal ultrasound with no acute abnormality -nephrology was consulted Cr trending down -monitor urine output, renal function and electrolytes. (5) Type 2 diabetes mellitus: Code(s): E11.9 - Type 2 diabetes mellitus without complications Status: Acute Assessment and Plan: A1c 8.4%. The patient's blood glucose was reviewed on 05/12 Glucose remains well controlled. Continue AccuCheks covering with sliding scale. Hypoglycemia protocol available as needed. Continue to follow (6) Rhabdomyolysis: Qualifiers: Rhabdomyolysis type: non-traumatic Qualified Code(s): M62.82 - Rhabdomyolysis Code(s): M62.82 - Rhabdomyolysis Status: Acute Assessment and Plan: Patient rolled off his couch and was on the floor for unknown amount of time -elevated CK levels to 735 -CK levels trending down (7) Parkinsons disease: Code(s): G20 - Parkinson's disease Status: Acute Assessment and Plan: History of Parkinson's disease Not on treatment Follow (8) Hypertension: Code(s): I10 - Essential (primary) hypertension Status: Acute Assessment and Plan: Patient's blood pressure was reviewed on 05/12 Blood pressure remains well controlled. Will continue to monitor (9) Asthma: Code(s): J45.909 - Unspecified asthma, uncomplicated Status: Acute Assessment and Plan: Patient complaining of dry cough, wheezing, states he has a history of asthma and takes inhaler p.r.n. Patient on bronchodilator Follow (10) Anemia: Code(s): D64.9 - Anemia, unspecified Status: Acute Assessment and Plan: Hgb was 10.8 on admission but quickly dropped to 8-9 range. B12/folate normal. Possibly related to his renal disease. he was also on Xarleto on admisison Check iron studies. Check stool guaiac Follow and transfuse as needed. Plan DVT prophylaxis: SCDs Code Status: Do not resuscitate Subjective Date/time seen: 05/12/24 13:39 Interval history: 63yo male with CHF, Parkinson, HTN, AFlutter on Xarelto, CAD here after being found down. Patient back from right BKA. He arouses but somnolent. Pain controlled. Exam Narrative: AF 97.1 152/75 90 20 99% ra Gen - NARD Chest - Clear anteriorly and in the flanks. CV - RRR S1/S2 Abd - Soft, NT/ND, Positive BS - Mckeon secured with clear yellow urine in bag Ext - Left foot dressing clean and dry. No left pedal edema. Right BKA dressing clean and dry. Drain in place. Neuro - somnolent but arouses and able to answer some questins. Psych - difficult to assess Skin - Warm and dry. chronic venous stasis skin changes LLE Objective Data Vital Signs Vital Signs: Vital Signs - 24 hr 05/11/24 13:59 05/11/24 14:06 05/11/24 16:00 Temperature 98.1 F Pulse Rate 80 80 80 Respiratory Rate 18 18 18 Blood Pressure 135/78 Pulse Oximetry 97 Oxygen Delivery Fraction of Inspired Oxygen 05/11/24 20:00 05/11/24 20:00 05/11/24 21:43 Temperature 97.7 F Pulse Rate 80 80 79 Respiratory Rate 18 18 18 Blood Pressure 134/87 Pulse Oximetry 97 95 Oxygen Delivery Room Air Fraction of Inspired Oxygen 21 05/11/24 21:46 05/11/24 21:55 05/12/24 00:00 Temperature 97.8 F Pulse Rate 78 72 Respiratory Rate 18 18 Blood Pressure 132/84 Pulse Oximetry 90 96 Oxygen Delivery Room Air Fraction of Inspired Oxygen 05/12/24 02:20 05/12/24 02:28 05/12/24 04:00 Temperature 97.6 F Pulse Rate 81 83 73 Respiratory Rate 18 18 18 Blood Pressure 136/82 Pulse Oximetry 95 Oxygen Delivery Fraction of Inspired Oxygen 05/12/24 05:53 05/12/24 08:36 05/12/24 08:36 Temperature 97.1 F L Pulse Rate 79 80 Respiratory Rate 18 18 Blood Pressure 148/87 H Pulse Oximetry 95 96 Oxygen Delivery Room Air Fraction of Inspired Oxygen 05/12/24 08:43 05/12/24 08:00 05/12/24 11:30 Temperature 97.4 F L 98.8 F Pulse Rate 81 79 79 Respiratory Rate 18 20 14 Blood Pressure 148/74 H 142/67 H Pulse Oximetry 98 98 Oxygen Delivery Fraction of Inspired Oxygen 05/12/24 12:00 05/12/24 13:06 Temperature 97.1 F L Pulse Rate 80 90 Respiratory Rate 20 20 Blood Pressure 155/88 H 152/75 H Pulse Oximetry 96 99 Oxygen Delivery Room Air Fraction of Inspired Oxygen Intake/Output Intake/Output: Intake & Output 05/09/24 05/10/24 05/11/24 05/12/24 23:59 23:59 23:59 23:59 Intake Total 1660 1395 2510 250 Output Total 184 082 8053 250 Balance 760 695 660 0 Meds/Results Medications: Active Medications Generic Name Dose Route Start Last Admin Trade Name Freq PRN Reason Stop Dose Admin Acetaminophen 650 mg 05/05/24 13:04 05/10/24 20:39 Acetaminophen 325 Mg Tablet PO 650 mg Q6H PRN Administration Mild Pain (1-3) or Fever Albuterol/Ipratropium 3 ml 05/04/24 01:39 05/08/24 00:02 Ipratropium 0.5 Mg/Albuterol Sulfate 2.5 Mg Ampul.Neb 3 Ml INHALATION 3 ml Q6HRT PRN Administration shortness of breath or wheezing Albuterol/Ipratropium 3 ml 05/05/24 08:40 05/12/24 08:36 Ipratropium 0.5 Mg/Albuterol Sulfate 2.5 Mg Ampul.Neb 3 Ml INHALATION 3 ml Q6HRT JHOANA Administration Amlodipine Besylate 2.5 mg 05/08/24 09:15 05/12/24 08:57 Amlodipine Besylate 2.5 Mg Tablet PO 2.5 mg QAM JHOANA Administration Aspirin 325 mg 05/05/24 09:00 05/11/24 08:44 Aspirin 325 Mg Tablet PO 325 mg DAILY@0800 JHOANA Administration Atorvastatin Calcium 40 mg 05/04/24 09:00 05/11/24 08:48 Atorvastatin 40 Mg Tablet PO 40 mg DAILY JHOANA Administration Dextrose 12.5 gm 05/04/24 01:34 Dextrose 50% 25 Gm/50 Ml Syringe IV PUSH PRN PRN Hypoglycemia Protocol Diphenhydramine HCl 12.5 mg 05/04/24 15:08 05/07/24 23:39 Diphenhydramine Hcl Elixir 12.5 Mg/5 Ml Udc PO 12.5 mg Q6H PRN Administration Itching Folic Acid 1 mg 05/11/24 09:00 05/11/24 08:48 Folic Acid 1 Mg Tablet PO 1 mg DAILY JHOANA Administration Glucagon 1 mg 05/04/24 01:34 Glucagon For Inj 1 Mg Vial IM PRN PRN Hypoglycemia Protocol Glucose 15 gm 05/04/24 01:34 Glucose Oral Gel 15 Gm Of Glucse In 37.5 Gm Tube PO PRN PRN Hypoglycemia Protocol Guaifenesin/Dextromethorphan 10 ml 05/05/24 08:37 05/10/24 20:43 Guaifenesin/Dextromethorphan 10 Ml Udc PO 10 ml Q4H PRN Administration Cough Dextrose 1,000 mls @ 100 mls/hr 05/04/24 01:34 Dextrose 5% 1,000 Ml IVPB PRN PRN Hypoglycemia Protocol Piperacillin/Tazobactam/Dextrose 3.375 gm in 50 mls @ 100 mls/hr 05/10/24 18:00 05/12/24 12:32 Zosyn 3.375 Gm/Ns 50 Ml IVPB 100 mls/hr Q6HR JHOANA Administration Insulin Aspart 3 - 6 units 05/08/24 08:00 05/12/24 12:32 Insulin Aspart (*Bkc) 100 Units/Ml SUB-Q Not Given TIDWM JHOANA Protocol Insulin Aspart 8 units 05/09/24 17:00 05/12/24 12:32 Insulin Aspart (*Bkc) 100 Units/Ml SUB-Q Not Given TIDWM JHOANA Insulin Glargine 20 units 05/10/24 21:00 05/11/24 21:29 Insulin Glargine (*Bkc) 100 Units/Ml SUB-Q 20 units HS JHOANA Administration Loratadine 10 mg 05/04/24 08:51 05/04/24 11:45 Loratadine 10 Mg Tablet PO 10 mg QAM PRN Administration itching Montelukast Sodium 10 mg 05/10/24 21:00 05/11/24 21:28 Montelukast Sodium 10 Mg Tablet PO 10 mg HS JHOANA Administration Ondansetron HCl 4 mg 05/03/24 23:51 Ondansetron Inj 4 Mg/2 Ml Vial IV PUSH Q4H PRN Nausea Pantoprazole Sodium 40 mg 05/04/24 09:00 05/12/24 08:59 Pantoprazole Sodium Iv 40 Mg Vial IV PUSH 40 mg QAM JHOANA Administration Sodium Hypochlorite 1 applic 05/06/24 09:00 05/12/24 12:25 Sod Hypochlorite 1/4 Strength 473 Ml TOPICAL 1 applic Q12HR JHOANA Administration Tamsulosin HCl 0.4 mg 05/10/24 21:00 05/11/24 21:28 Tamsulosin Hcl 0.4 Mg Capsule PO 0.4 mg QHS JHOANA Administration Triamcinolone Acetonide 1 applic 05/04/24 09:00 05/11/24 16:44 Triamcinolone Acet 0.1% Cream 80 Gm Tube TOPICAL 1 applic BID JHOANA Administration Radiology Results: ITS Impressions Head CT 05/03/24 20:56 IMPRESSION: Acute infarct involving a portion of the right MCA territory. Results reported telephonically to Dr. Duong by Dr. Langford at 9:01 PM on 05/03/2024. Cervical Spine CT 05/03/24 21:01 IMPRESSION: No acute fracture or traumatic malalignment in the cervical spine. Abdomen/Pelvis CT 05/03/24 21:06 IMPRESSION: No acute abdominopelvic process detected. Foot X-Ray 05/04/24 07:08 IMPRESSION: 1. Soft tissue gas in the plantar aspect of the heel. No evidence of osteomyelitis. Carotid Doppler Study 05/04/24 14:15 IMPRESSION: 1. <50% stenosis in the right internal carotid artery. 2. <50% stenosis in the left internal carotid artery. Renal Ultrasound 05/04/24 14:16 IMPRESSION: No definite abnormality. Ankle Brachial Index 05/08/24 06:55 IMPRESSION: 1. Decreased TBIs and normal ABIs, consistent with arterial occlusive disease. Note that ABIs may be overestimated if arteries are calcified. Chest X-Ray 05/09/24 13:15 IMPRESSION: 1. Mild atelectasis in right lower lung zone. Labs Labs: Laboratory Results - last 24 hr 05/11/24 05/11/24 05/12/24 17:04 20:17 06:57 WBC 9.3 RBC 2.69 L Hgb 8.6 L Hct 27.6 L MCV 102.6 H MCH 32.0 MCHC 31.2 L RDW 14.6 H Plt Count 288 MPV 9.8 PT 15.7 H INR 1.2 APTT 44.3 H Sodium 138 Potassium 3.7 Chloride 106 Carbon Dioxide 28 Anion Gap 4 BUN 26 H Creatinine 1.60 H Estim Creat Clear Calc 60 Estimated GFR 44 L Glucose 173 H POC Capillary Glucose 170 H 150 H Calcium 8.7 Vitamin B12 978.0 H Folate > 20.0 H Blood Type A Negative Antibody Screen Negative 05/12/24 05/12/24 05/12/24 07:56 11:08 11:34 WBC RBC Hgb 8.1 L Hct 25.6 L MCV MCH MCHC RDW Plt Count MPV PT INR APTT Sodium Potassium Chloride Carbon Dioxide Anion Gap BUN Creatinine Estim Creat Clear Calc Estimated GFR Glucose POC Capillary Glucose 166 H 148 H Calcium Vitamin B12 Folate Blood Type Antibody Screen
--- NOTE | 2024-05-12 13:44 | P.PNAN_ITS ---
Anes - Initial Pre Proc Eval Procedure: Operation Date: 05/06/24 07:30 Proposed Procedures p I&D Debride Lower Extremity(Bilateral) - Dionicio Ta MD Operation Date: 05/12/24 15:00 Proposed Procedures p Right Below Knee Amputation - Dionicio Ta MD Date/Time: 05/12/24 13:44 Surgeon: Chantell James DO Pre Op Diagnosis: Sepsis, Altered mental status, Acute kidney injury Patient Data Age: 63 Gender: M Height: 1.84 m Weight: 136.2 kg Last Vital Signs Temp 36.2 C L 05/12/24 12:00 Pulse 90 05/12/24 13:06 Resp 20 05/12/24 13:06 BP 152/75 H 05/12/24 13:06 Pulse Ox 99 05/12/24 13:06 O2 Del Method Room Air 05/12/24 13:06 O2 Flow Rate 2 05/09/24 21:19 FiO2 21 05/11/24 20:00 Allergies Allergy/AdvReac Type Severity Reaction Status Date / Time No Known Allergies Allergy Verified 05/12/24 13:22 Home Medications Medication Instructions Recorded Confirmed Type atorvastatin 20 mg tablet 20 mg PO DAILY 10/04/20 05/04/24 History diltiazem HCl 90 mg tablet 90 mg PO BID 07/17/22 05/04/24 History rivaroxaban 20 mg tablet (Xarelto) 20 mg PO DAILY 07/17/22 05/04/24 History metformin 1,000 mg tablet 1,000 mg PO BID #180 tabs 06/29/23 05/04/24 Rx valsartan 320 mg tablet 320 mg PO DAILY #90 tabs 06/29/23 05/04/24 Rx folic acid 1 mg tablet 1 mg PO DAILY #90 tabs 07/07/23 05/04/24 Rx furosemide 40 mg tablet 40 mg PO DAILY #30 tabs 08/27/23 05/04/24 Rx montelukast 10 mg tablet 10 mg PO HS #30 tabs 08/27/23 05/04/24 Rx cetirizine 10 mg tablet 10 mg PO DAILY #90 tabs 10/26/23 05/04/24 Rx albuterol sulfate 90 mcg/actuation 1 puff inhalation Q4H PRN 12/09/23 05/04/24 Rx aerosol inhaler shortness of breath or wheezing #25.5 grams triamcinolone acetonide 0.1 % 1 applic topical BID #454 grams 12/09/23 05/04/24 Rx topical cream carvedilol 25 mg tablet 50 mg PO Q12H #360 tabs 02/23/24 05/04/24 Rx ipratropium 0.5 mg-albuterol 3 mg 3 ml inhalation QID PRN shortness 02/23/24 05/04/24 Rx (2.5 mg base)/3 mL nebulization of breath or wheezing #360 mL soln potassium chloride 20 mEq 20 meq PO DAILY #90 tabs 02/23/24 05/04/24 Rx tablet,extended release(part/cryst) doxycycline hyclate 100 mg tablet 100 mg PO DAILY #20 tabs 02/26/24 05/04/24 Rx tamsulosin 0.4 mg capsule 0.4 mg PO QHS #90 caps 03/03/24 05/04/24 Rx allopurinol 100 mg tablet 200 mg PO DAILY #180 tabs 04/26/24 05/04/24 Rx Laboratory Tests 05/11/24 05/11/24 05/12/24 17:04 20:17 06:57 WBC 9.3 K/mm3 (4.5-10.0) RBC 2.69 L M/mm3 (4.6-6.20) Hgb 8.6 L g/dL (14.0-18.0) Hct 27.6 L % (42.0-52.0) MCV 102.6 H fl (80-100) MCH 32.0 pg (26-34) MCHC 31.2 L g/dl (32-36) RDW 14.6 H % (11.5-14.5) Plt Count 288 k/mm3 (150-375) MPV 9.8 fl (7.4-10.4) PT 15.7 H Seconds (11.1-14.7) INR 1.2 APTT 44.3 H Seconds (22.3-36.8) Sodium 138 mmol/L (137-145) Potassium 3.7 mmol/L (3.4-5.0) Chloride 106 mmol/L (98-107) Carbon Dioxide 28 mmol/L (22-30) Anion Gap 4 mmol/L (4-12) BUN 26 H mg/dL (9-20) Creatinine 1.60 H mg/dL (0.7-1.3) Estim Creat Clear Calc 60 ml/min Estimated GFR 44 L (59 - ) Glucose 173 H mg/dL (65-110) POC Capillary Glucose 170 H mg/dl 150 H mg/dl (65-105) (65-105) Calcium 8.7 mg/dL (8.4-10.2) Vitamin B12 978.0 H pg/mL (239-931) Folate > 20.0 H ng/mL (2.76->20) Blood Type A Negative Antibody Screen Negative 05/12/24 05/12/24 05/12/24 07:56 11:08 11:34 WBC RBC Hgb 8.1 L g/dL (14.0-18.0) Hct 25.6 L % (42.0-52.0) MCV MCH MCHC RDW Plt Count MPV PT INR APTT Sodium Potassium Chloride Carbon Dioxide Anion Gap BUN Creatinine Estim Creat Clear Calc Estimated GFR Glucose POC Capillary Glucose 166 H mg/dl 148 H mg/dl (65-105) (65-105) Calcium Vitamin B12 Folate Blood Type Antibody Screen Patient hx anesthesia problems: none Family hx anesthesia problems: none Results Review: All pre-operative results and documents have been reviewed as part of the pre-operative evaluation. [facility] Past Medical History Medical History Anxiety Asthma Bilateral cataracts Maturing BPH loc w urin obs/LUTS Cellulitis of right lower extremity Chronic atrial fibrillation Coronary artery disease involving [place] heart without angina pectoris Depression Diabetic foot ulcer Diabetic peripheral neuropathy Dyslipidemia Essential hypertension Folate deficiency Gout Hyperlipidemia Kidney stones Parkinsons disease Right-sided cerebrovascular accident (CVA) Seasonal allergies Stasis dermatitis Type 2 diabetes mellitus Uncontrolled hypertension Surgical History Surgical History History of bilateral carpal tunnel release History of heart artery stent (~2008) History of permanent cardiac pacemaker placement (~2015) [place] Hx of tonsillectomy S/P cubital tunnel release Family History Family History Mother Family history of blood dyscrasia Grandparent Alcoholism Social History Social History Social History: He is and lives alone. He has 4 children 1 of which in a motor vehicle collision. He used to work for a [employer] company but is now on disability. He smokes about 10 cigarettes a day and has smoked since his early 20s. He reports he quit smoking March 2024. He denies any significant alcohol use. Code status: DNR/DNI (per patient request) Surrogate decision maker: Enedelia Villalpando (friend) Smoking packs per day: 0.5 Smoking cigarettes per day: 10.0 Years smoked: 25 Smoking pack-years: 12.50 Smoking status: Former smoker Second hand tobacco smoke exposure: No Alcohol intake: current Alcohol use details: Occasionally Substance use: never Substance use type: does not use Do You Feel Safe in your Home?: Yes Lack of Transportation: No Lack of Food: Never True Current Housing: I Have Housing Concerned About Future Housing: No Difficulty Paying Gas/Electric Bills: YES Difficulty Paying for Meds: No Currently Unemployed: No Education: High School Diploma/GED Difficulty w/ Childcare or Family Care: No Spiritual care concerns: No Anes - Eval Final PreProcedure Day of Procedure 05/12/24 13:44 Patient weight: morbidly obese Heart: regular rate and rhythm Lungs: decreased breath sounds Airway: Mallampati scale class II Neurological: alert and oriented Last oral intake: >/= 8 hours ASA classification: IV Emergent: no Anesthetic plan: proceed Anesthesia type and monitoring: general LMA Results Review: All pre-operative results and documents have been reviewed as part of the pre- operative evaluation. Informed Consent: The patient's anesthetic plan and its attendant risks and benefits were discussed with the patient/family/POA. Questions were solicited and answers provided to the satisfaction of the patient/family/POA.
[2024-05-12] MEDS: fentaNYL CITRATE INJ (*CRX) 100 MCG/2 ML VIAL 25 MCG IV PUSH ×3 (16:46→17:10)
[2024-05-12 16:48] LABS: Glucose Point of Care 136 mg/dl (65-105)
--- NOTE | 2024-05-12 17:48 | W.PM.PROC2 ---
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 Post-op Diagnosis Same Procedure Performed Right below-knee amputation Surgeon Dionicio Ta MD Molding Line Assistant KATY Bateman Anesthesia General Indications The patient is a 63-year-old gentleman who is a longstanding non insulin-dependent diabetic. He had developed bilateral heel wounds as well as a right forefoot wound which had both dry and wet gangrene. He underwent initial debridement of the wounds last week. The right foot wounds are extensive with obvious osteomyelitis and it does not appear that foot is salvageable. He presents now for right below-knee amputation. Findings The patient had relatively perfusion with good bleeding tissue at the level of the amputation the right lower extremity below the knee. The skin margin of the resection was certainly viable with no evidence of cellulitis. Description of Procedure After informed consent was obtained patient brought to the operating room was placed supine position and general endotracheal anesthesia was administered. The right lower extremity from the mid thigh region all the way to the foot was then prepped and draped usual sterile fashion circumferentially. The time-out was done identifying the patient and the procedure to be performed. He was already on scheduled IV antibiotics. The site marking was verified. The tourniquet in the right thigh was engaged and was set for 300mmHg. I then proceeded to measure approximately 13 to 15 cm from the right tibial tuberosity on the anterior tibial region and marked that area for my length the bone division on the tibia. I then marked off a posterior muscular tenuous flap extending for another 12cm from the line of the bone division. With a scalpel I then proceeded to incise the skin and subcutaneous tissues and down into the muscle. I incised sharply divided muscle all the way down to the tibia. Circumferentially divided the muscle until I could use a periosteal elevator to scrape off the periosteum and muscle off of the tibia. At this point I then used a oscillating bone saw to divide the tibia about 2cm proximal to the skin incision. I then performed a similar maneuver to divide the muscle tissue around the fibula and again freed it circumferentially and then divided the fibula with a bone cutter proximal to the level of the end of the tibia. An amputation knife was then used to complete the amputation and creating the posterior muscular tendinous flap. The amputated right foot and distal tibia and fibula were then sent to pathology for examination. With the tourniquet still engaged I then proceeded to ligate the neurovascular bundles with 2-0 Vicryl stick ties. I then proceeded to also resect away portions of the muscle the posterior muscular cutaneous flap to mold it to the appropriate thickness for the end of the stump. Once this was done I then proceeded to release the tourniquet and the total tourniquet time was 27 minutes. There were then some small muscular arteries that were then ligated with a 2-0 Vicryl stick ties and some minor bleeding from the muscle which was treated electrocautery. Once I felt I had good hemostasis I then proceeded to irrigate the posterior muscular tendinous flap and the ends of the fibula and tibial a with sterile saline solution. A rasp was then used to groin down the sharp edges of the end of the tibia. I then treated the bone marrow with electrocautery and then placed bone wax over the into the tibia. A 15 [place] flat VIRI drain was then placed into the wound and brought out laterally in the proximal lower leg just distal to the knee. It was secured to the skin with a 3-0 nylon suture. The musculotendinous flap was then folded over the end of the tibia and fibula with the drain in place. Interrupted 0 Vicryl sutures were then initially placed to approximate the edges of the fascia from the posterior most continues flap and the fascia on the proximal resection line. This is then followed by layers of interrupted 2-0 Vicryl sutures and 3-0 Vicryl sutures to further approximate the muscle and the skin edges on the end of the amputation stump. Lastly erupted 3-0 nylon sutures were placed in a vertical mattress fashion to approximate the skin edges and closed the stump completely. Hemostasis was good. We then cleaned the end of the right BKA stump and placed Xeroform gauze over the suture line. This is then followed by applying 4x4 gauze ABD pads and Kerlix gauze to the amputation stump. A posterior splint to keep the knee joint extended and prevent contractures was then fashion with 10 pieces of plaster and applied to the right lower extremity after it had been wrapped with additional web roll. Lastly a cinch Louis wrap was used to hold the posterior splint in place. The drain was then placed to after grenade bulb suction. The patient tolerated the procedure well no complications. All sponges, needles, and instrument counts were correct at the end procedure. EBL was _100__cc. The patient was awakened and taken to recovery in stable and satisfactory condition. Implants None Estimated Blood Loss 100 Urine Output 250 Drains Yes Packing Yes (10 [place] flat VIRI drain BKA stump) Pathology Yes (Right foot and distal tibia and fibula sent to pathology) Complications No immediate complications Condition Stable Disposition PACU [facility] Billing Surgery - Charge Forward: Surgery Billing
[2024-05-12 18:20] LABS: Glucose Point of Care 144 mg/dl (65-105)
[2024-05-12] MEDS: oxyCODONE HCL (*CRX) 5 MG TAB IR PO (18:48)
[2024-05-12 20:48] LABS: Glucose Point of Care 169 mg/dl (65-105)
[2024-05-12] MEDS: INSULIN GLARGINE (*BKC) 100 UNITS/ML 20 UNITS SUB-Q (20:53)
[2024-05-12] MEDS: MONTELUKAST SODIUM 10 MG TABLET PO (20:54)
[2024-05-12] MEDS: TAMSULOSIN HCL 0.4 MG CAPSULE PO (20:54)
[2024-05-12] MEDS: HYDROmorphone HCL INJ (*CRX) 1 MG/ML SYR IV PUSH (20:57)
[2024-05-13] VITALS (18 sets, daily range): BP systolic 113–144; BP diastolic 61–84; PULSE 76–83; RESP 16–20; TEMP 35.9–37.6; O2SAT 87–100; BMI 10.0
[2024-05-13] MEDS: PIPERACILLN/TAZ 3.375GM/NS50ML 3.375 GM/50 ML BAG IVPB ×2 (00:16→06:30)
[2024-05-13] MEDS: IPRATROPIUM 0.5 MG/ALBUTEROL SULFATE 2.5 MG AMPUL.NEB 3 ML INHALATION ×4 (02:16→19:30)
[2024-05-13] MEDS: oxyCODONE HCL (*CRX) 5 MG TAB IR PO ×4 (02:33→20:17)
[2024-05-13 06:39] LABS: Basophils Percent Auto 0.4 % (0.2-1.2); Eosinophils Absolute Auto 0.2 K/mm3 (0-0.3); Eosinophils Percent Auto 1.8 % (0-4.4); Hematocrit 24.9 % (42.0-52.0); Hemoglobin 7.4 g/dL (14.0-18.0); Immature Granulocyte Absolute 0.07 K/mm3 (0.00-0.031); Immature Granulocyte Percent A 0.7 % (0-0.5); Lymphocytes Absolute Auto 1.19 K/mm3 (0.9-3.2); Lymphocytes Percent Auto 12.7 % (18.3-44.2); Mean Corpuscular HGB Conc 29.7 g/dl (32-36); Mean Corpuscular Hemoglobin 31.5 pg (26-34); Mean Platelet Volume 9.8 fl (7.4-10.4); Monocytes Absolute Auto 0.7 K/mm3 (0.1-0.6); Monocytes Percent Auto 7.7 % (2.6-8.5); Neutrophils Absolute Auto 7.2 K/mm3 (1.3-6.7); Neutrophils Percent Auto 76.7 % (45.5-73.1); Platelet Count Result 243 k/mm3 (150-375); Red Blood Count 2.35 M/mm3 (4.6-6.20); Red Cell Distribution Width 14.7 % (11.5-14.5); White Blood Count 9.4 K/mm3 (4.5-10.0)
[2024-05-13 06:51] LABS: Albumin Level 2.8 g/dL (3.5-5.1); Anion Gap 1 mmol/L (4-12); Blood Urea Nitrogen 23 mg/dL (9-20); Calcium 8.3 mg/dL (8.4-10.2); Carbon Dioxide 32 mmol/L (22-30); Chloride 105 mmol/L (98-107); Estimated CRCL calculation 62 ml/min; Estimated Glomerular Filt Rate 47; Glucose 141 mg/dL (65-110); Magnesium 1.4 mg/dL (1.6-2.3); Phosphorus 3.8 mg/dL (2.5-4.5); Potassium 4.1 mmol/L (3.4-5.0); Sodium 138 mmol/L (137-145)
[2024-05-13 07:08] LABS: Iron 33 ug/dL (49-181)
[2024-05-13 07:17] LABS: Percent Iron Saturation 16 % (20-50)
[2024-05-13 07:36] LABS: Hypochromasia 1+; Macrocytosis 1+ (NORMAL); Platelet Estimate Adequate (Adequate)
[2024-05-13 07:37] LABS: Schistocytes None Seen
[2024-05-13 08:32] LABS: Glucose Point of Care 138 mg/dl (65-105)
[2024-05-13] MEDS: FOLIC ACID 1 MG TABLET PO (08:58)
[2024-05-13] MEDS: amLODIPine BESYLATE 2.5 MG TABLET PO (08:58)
[2024-05-13] MEDS: ATORVASTATIN 40 MG TABLET PO (08:58)
[2024-05-13] MEDS: ASPIRIN 325 MG TABLET PO (08:58)
[2024-05-13] MEDS: PANTOPRAZOLE SODIUM IV 40 MG VIAL IV PUSH (08:59)
[2024-05-13] MEDS: MAGNESIUM SULF 2 GM/WATER 50ML 2 GM/50 ML BAG IVPB (09:01)
[2024-05-13] MEDS: INSULIN ASPART (*BKC) 100 UNITS/ML 8 UNITS SUB-Q (09:01)
--- NOTE | 2024-05-13 09:13 | P.PN_ITS ---
Progress Note: A&P Assessment and Plan (1) Diabetic foot ulcers: Qualifiers: Diabetic foot ulcer location: heel Diabetes mellitus type: type 2 Laterality: unspecified laterality Non-pressure ulcer stage: unspecified non- pressure ulcer stage Qualified Code(s): E11.621 - Type 2 diabetes mellitus with foot ulcer; L97.409 - Non-pressure chronic ulcer of unspecified heel and midfoot with unspecified severity Code(s): E11.621 - Type 2 diabetes mellitus with foot ulcer; L97.509 - Non-pressure chronic ulcer of other part of unspecified foot with unspecified severity Status: Acute Assessment and Plan: Postop day 1 status post right BKA. Wound is dressed and it seems to be doing well. He had good perfusion to the stump at surgery and should this should heal. PT OT has been reordered. A posterior splint in place to keep the patient from getting a contracture at the knee joint. Drain still in place and should be left in over the weekend. Continue antibiotics as indicated as per primary service. Left foot heel ulcer stable. I asked the wound care nurses to look at the heel again and make recommendations for long-term dressing changes. Patient may be weight-bearing on his left foot only for transfers. Continue supportive management as per primary service. Subjective Date/time seen: 05/13/24 09:13 Interval history: Postop day 1 after right below-knee amputation. He is doing well today. Answering questions appropriately. Ate all of his breakfast today without problems. Pain seems to be well controlled with current pain management regimen. Exam Extrem: Other: Right BKA stump dressed. Dressing is dry. VIRI drain bloody fluid but decreasing in amount. No bright red blood. Seems to be all old blood. Posterior splint in place with a dressing. Left foot heel ulcer no worsening cellulitis. Objective Data Vital Signs Vital Signs: Vital Signs - 24 hr 05/12/24 11:30 05/12/24 12:00 05/12/24 13:06 Temperature 37.1 C 36.2 C L Pulse Rate 79 80 90 Respiratory Rate 14 20 20 Blood Pressure 142/67 H 155/88 H 152/75 H Pulse Oximetry 98 96 99 Oxygen Delivery Room Air Oxygen Flow Rate 05/12/24 16:37 05/12/24 16:50 05/12/24 17:05 Temperature 36.6 C Pulse Rate 80 80 80 Respiratory Rate 16 20 18 Blood Pressure 130/93 H 138/80 134/90 Pulse Oximetry 97 98 97 Oxygen Delivery Simple Face Mask Simple Face Mask Nasal Cannula Oxygen Flow Rate 8 8 2 05/12/24 17:20 05/12/24 17:33 05/12/24 17:30 Temperature 36.6 C 36.4 C L Pulse Rate 80 80 83 Respiratory Rate 19 20 20 Blood Pressure 133/74 122/77 137/93 H Pulse Oximetry 96 95 95 Oxygen Delivery Nasal Cannula Nasal Cannula Oxygen Flow Rate 2 2 05/12/24 18:00 05/12/24 19:00 05/12/24 20:00 Temperature 36.4 C 36.3 C L 35.6 C L Pulse Rate 80 80 80 Respiratory Rate 20 20 18 Blood Pressure 140/82 142/80 H 133/75 Pulse Oximetry 95 95 99 Oxygen Delivery Oxygen Flow Rate 05/12/24 20:31 05/12/24 20:35 05/12/24 20:40 Temperature Pulse Rate 83 83 79 Respiratory Rate 18 18 Blood Pressure Pulse Oximetry 96 Oxygen Delivery Nasal Cannula Oxygen Flow Rate 2 05/13/24 00:00 05/13/24 02:16 05/13/24 02:25 Temperature 35.9 C L Pulse Rate 81 82 80 Respiratory Rate 18 18 18 Blood Pressure 113/67 Pulse Oximetry 92 Oxygen Delivery Oxygen Flow Rate 05/13/24 03:57 05/13/24 08:02 05/13/24 08:02 Temperature 35.9 C L Pulse Rate 80 81 Respiratory Rate 18 18 Blood Pressure 131/79 Pulse Oximetry 96 93 Oxygen Delivery Nasal Cannula Oxygen Flow Rate 2 05/13/24 08:12 Temperature Pulse Rate 80 Respiratory Rate 18 Blood Pressure Pulse Oximetry Oxygen Delivery Oxygen Flow Rate Intake/Output Intake/Output: Intake & Output 05/10/24 05/11/24 05/12/24 05/13/24 23:59 23:59 23:59 23:59 Intake Total 1395 2510 520 50 Output Total 700 1850 995 400 Balance 720 425 -547 -525 Meds/Results Medications: Active Medications Generic Name Dose Route Start Last Admin Trade Name Freq PRN Reason Stop Dose Admin Acetaminophen 1,000 mg 05/12/24 17:44 Acetaminophen 500 Mg Tablet PO Q6H PRN Mild Pain (1-3) or Fever Hydrocodone Bitart/Acetaminophen 2 tab 05/12/24 17:44 Hydrocodone/Acetaminophen (*Crx) 5-325 Mg Tablet PO Q6H PRN Pain Rated 4-6 Albuterol/Ipratropium 3 ml 05/04/24 01:39 05/08/24 00:02 Ipratropium 0.5 Mg/Albuterol Sulfate 2.5 Mg Ampul.Neb 3 Ml INHALATION 3 ml Q6HRT PRN Administration shortness of breath or wheezing Albuterol/Ipratropium 3 ml 05/05/24 08:40 05/13/24 08:02 Ipratropium 0.5 Mg/Albuterol Sulfate 2.5 Mg Ampul.Neb 3 Ml INHALATION 3 ml Q6HRT JHOANA Administration Amlodipine Besylate 2.5 mg 05/08/24 09:15 05/13/24 08:58 Amlodipine Besylate 2.5 Mg Tablet PO 2.5 mg QAM JHOANA Administration Aspirin 325 mg 05/05/24 09:00 05/13/24 08:58 Aspirin 325 Mg Tablet PO 325 mg DAILY@0800 JHOANA Administration Atorvastatin Calcium 40 mg 05/04/24 09:00 05/13/24 08:58 Atorvastatin 40 Mg Tablet PO 40 mg DAILY JHOANA Administration Dextrose 12.5 gm 05/04/24 01:34 Dextrose 50% 25 Gm/50 Ml Syringe IV PUSH PRN PRN Hypoglycemia Protocol Diphenhydramine HCl 12.5 mg 05/04/24 15:08 05/07/24 23:39 Diphenhydramine Hcl Elixir 12.5 Mg/5 Ml Udc PO 12.5 mg Q6H PRN Administration Itching Fentanyl Citrate 25 mcg 05/12/24 16:18 05/12/24 17:10 Fentanyl Citrate Inj (*Crx) 100 Mcg/2 Ml Vial IV PUSH 25 mcg Q2M PRN Administration Pain Folic Acid 1 mg 05/11/24 09:00 05/13/24 08:58 Folic Acid 1 Mg Tablet PO 1 mg DAILY JHOANA Administration Glucagon 1 mg 05/04/24 01:34 Glucagon For Inj 1 Mg Vial IM PRN PRN Hypoglycemia Protocol Glucose 15 gm 05/04/24 01:34 Glucose Oral Gel 15 Gm Of Glucse In 37.5 Gm Tube PO PRN PRN Hypoglycemia Protocol Guaifenesin/Dextromethorphan 10 ml 05/05/24 08:37 05/10/24 20:43 Guaifenesin/Dextromethorphan 10 Ml Udc PO 10 ml Q4H PRN Administration Cough Hydromorphone HCl 1 mg 05/12/24 17:44 05/12/24 20:57 Hydromorphone Hcl Inj (*Crx) 1 Mg/Ml Syr IV PUSH 1 mg Q3H PRN Administration Pain Rated 7-10 Dextrose 1,000 mls @ 100 mls/hr 05/04/24 01:34 Dextrose 5% 1,000 Ml IVPB PRN PRN Hypoglycemia Protocol Piperacillin/Tazobactam/Dextrose 3.375 gm in 50 mls @ 100 mls/hr 05/10/24 18:00 05/13/24 06:30 Zosyn 3.375 Gm/Ns 50 Ml IVPB 100 mls/hr Q6HR JHOANA Administration Magnesium Sulfate 2 gm in 50 mls @ 25 mls/hr 05/13/24 08:00 05/13/24 09:01 Magnesium Sulf 2 Gm/Water 50ml IVPB 05/13/24 09:59 25 mls/hr ONCE ONE Administration Insulin Aspart 3 - 6 units 05/08/24 08:00 05/13/24 08:34 Insulin Aspart (*Bkc) 100 Units/Ml SUB-Q Not Given TIDWM JHOANA Protocol Insulin Aspart 8 units 05/09/24 17:00 05/13/24 09:01 Insulin Aspart (*Bkc) 100 Units/Ml SUB-Q 8 units TIDWM JHOANA Administration Insulin Glargine 20 units 05/10/24 21:00 05/12/24 20:53 Insulin Glargine (*Bkc) 100 Units/Ml SUB-Q 20 units HS JHOANA Administration Loratadine 10 mg 05/04/24 08:51 05/04/24 11:45 Loratadine 10 Mg Tablet PO 10 mg QAM PRN Administration itching Montelukast Sodium 10 mg 05/10/24 21:00 05/12/24 20:54 Montelukast Sodium 10 Mg Tablet PO 10 mg HS JHOANA Administration Ondansetron HCl 4 mg 05/03/24 23:51 Ondansetron Inj 4 Mg/2 Ml Vial IV PUSH Q4H PRN Nausea Oxycodone HCl 5 mg 05/12/24 17:44 05/13/24 08:08 Oxycodone Hcl (*Crx) 5 Mg Tab Ir PO 5 mg Q4H PRN Administration Pain Rated 7-10 Pantoprazole Sodium 40 mg 05/04/24 09:00 05/13/24 08:59 Pantoprazole Sodium Iv 40 Mg Vial IV PUSH 40 mg QAM JHOANA Administration Tamsulosin HCl 0.4 mg 05/10/24 21:00 05/12/24 20:54 Tamsulosin Hcl 0.4 Mg Capsule PO 0.4 mg QHS JHOANA Administration Triamcinolone Acetonide 1 applic 05/04/24 09:00 05/11/24 16:44 Triamcinolone Acet 0.1% Cream 80 Gm Tube TOPICAL 1 applic BID JHOANA Administration Radiology Results: ITS Impressions Head CT 05/03/24 20:56 IMPRESSION: Acute infarct involving a portion of the right MCA territory. Results reported telephonically to Dr. Duong by Dr. Langford at 9:01 PM on 05/03/2024. Cervical Spine CT 05/03/24 21:01 IMPRESSION: No acute fracture or traumatic malalignment in the cervical spine. Abdomen/Pelvis CT 05/03/24 21:06 IMPRESSION: No acute abdominopelvic process detected. Foot X-Ray 05/04/24 07:08 IMPRESSION: 1. Soft tissue gas in the plantar aspect of the heel. No evidence of osteomyelitis. Carotid Doppler Study 05/04/24 14:15 IMPRESSION: 1. <50% stenosis in the right internal carotid artery. 2. <50% stenosis in the left internal carotid artery. Renal Ultrasound 05/04/24 14:16 IMPRESSION: No definite abnormality. Ankle Brachial Index 05/08/24 06:55 IMPRESSION: 1. Decreased TBIs and normal ABIs, consistent with arterial occlusive disease. Note that ABIs may be overestimated if arteries are calcified. Chest X-Ray 05/09/24 13:15 IMPRESSION: 1. Mild atelectasis in right lower lung zone. Labs Labs: Laboratory Results - last 24 hr 05/12/24 05/12/24 05/12/24 06:57 11:08 11:34 WBC RBC Hgb 8.1 L Hct 25.6 L MCV MCH MCHC RDW Plt Count MPV Immature Gran % (Auto) Neut % (Auto) Lymph % (Auto) [place] % (Auto) Eos % (Auto) Baso % (Auto) Lymph # (Auto) [place] # (Auto) Eos # (Auto) Baso # (Auto) Abs Immat Gran (auto) Absolute Neuts (auto) Absolute Nucleated RBC Nucleated RBC % Platelet Estimate Hypochromasia Macrocytosis Schistocytes Sodium Potassium Chloride Carbon Dioxide Anion Gap BUN Creatinine Estim Creat Clear Calc Estimated GFR Glucose POC Capillary Glucose 148 H Calcium Phosphorus Magnesium Iron TIBC % Saturation Ferritin Albumin Vitamin B12 978.0 H Folate > 20.0 H 05/12/24 05/12/24 05/12/24 16:43 18:02 20:40 WBC RBC Hgb Hct MCV MCH MCHC RDW Plt Count MPV Immature Gran % (Auto) Neut % (Auto) Lymph % (Auto) [place] % (Auto) Eos % (Auto) Baso % (Auto) Lymph # (Auto) [place] # (Auto) Eos # (Auto) Baso # (Auto) Abs Immat Gran (auto) Absolute Neuts (auto) Absolute Nucleated RBC Nucleated RBC % Platelet Estimate Hypochromasia Macrocytosis Schistocytes Sodium Potassium Chloride Carbon Dioxide Anion Gap BUN Creatinine Estim Creat Clear Calc Estimated GFR Glucose POC Capillary Glucose 136 H 144 H 169 H Calcium Phosphorus Magnesium Iron TIBC % Saturation Ferritin Albumin Vitamin B12 Folate 05/13/24 05/13/24 05:59 08:24 WBC 9.4 RBC 2.35 L Hgb 7.4 L Hct 24.9 L MCV 106.0 H MCH 31.5 MCHC 29.7 L RDW 14.7 H Plt Count 243 MPV 9.8 Immature Gran % (Auto) 0.7 H Neut % (Auto) 76.7 H Lymph % (Auto) 12.7 L [place] % (Auto) 7.7 Eos % (Auto) 1.8 Baso % (Auto) 0.4 Lymph # (Auto) 1.19 [place] # (Auto) 0.7 H Eos # (Auto) 0.2 Baso # (Auto) 0.0 Abs Immat Gran (auto) 0.07 H Absolute Neuts (auto) 7.2 H Absolute Nucleated RBC 0.000 Nucleated RBC % 0.0 Platelet Estimate Adequate Hypochromasia 1+ Macrocytosis 1+ Schistocytes None seen Sodium 138 Potassium 4.1 Chloride 105 Carbon Dioxide 32 H Anion Gap 1 L BUN 23 H Creatinine 1.50 H Estim Creat Clear Calc 62 Estimated GFR 47 L Glucose 141 H POC Capillary Glucose 138 H Calcium 8.3 L Phosphorus 3.8 Magnesium 1.4 L Iron 33 L TIBC 212 L % Saturation 16 L Ferritin 219.00 Albumin 2.8 L Vitamin B12 Folate
--- NOTE | 2024-05-13 10:37 | P.PNNP_ITS ---
Progress Note: A&P Assessment and Plan (1) Acute kidney injury: Code(s): N17.9 - Acute kidney failure, unspecified Status: Acute Assessment and Plan: * slow and steady improvement inf not back to baseline * as noted by admission labs -- creatinine 3.40mg/dl * evaluation to date noted: * CT scan of the abdomen/pelvis did not show any hydronephrosis * renal ultrasound normal * urine electrolytes prerenal * urine eosinophils negative * CPK mildly elevated - follow trend * UA with 2+ protein and 1+ blood * suspect multifactorial etiology * hypotension/hemodynamic instability on admission * sepsis/infection (bacteremia) * rhabdomyolysis * making reasonable urine output * possible new baseline creatinine of 1.5 - 1.6mg/dl(?) * follow trend of repeat labs and UOP (2) Stage 3a chronic kidney disease: Code(s): N18.31 - Chronic kidney disease, stage 3a Status: Chronic Assessment and Plan: * creatinine running ~ 1.3 - 1.4mg/dl (although last labs done are from 2020) * presumably secondary to hypertension, diabetes, and vascular disease * cannot discount an element of CKD progression (3) Sepsis: Code(s): A41.9 - Sepsis, unspecified organism Status: Acute Assessment and Plan: * as noted on presentation with AMS, high fevers, lactic acidosis, and tachycardia * s/p aggressive IVF resuscitation * s/p bicarb IVFs for acidosis * follow culture data * 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 * repeat cultures are negative so far * wound cultures with Staphylococcus aureus and Streptococcus constellatus * on antibiotics * continue supportive therapy (4) Acute CVA (cerebrovascular accident): Code(s): I63.9 - Cerebral infarction, unspecified Status: Acute Assessment and Plan: * presentation with AMS as well as facial droop + weakness * admission head CT showed acute infarct involving a portion of the right MCA territory * not a candidate for tPA as unclear when he was last at baseline * found on the floor - unclear duration as well * Neurology following (5) Diabetic foot ulcer: Qualifiers: Diabetes mellitus type: type 2 Diabetic foot ulcer location: midfoot Laterality: right Non-pressure ulcer stage: with muscle involvement without evidence of necrosis Qualified Code(s): E11.621 - Type 2 diabetes mellitus with foot ulcer; L97.415 - Non-pressure chronic ulcer of right heel and midfoot with muscle involvement without evidence of necrosis Code(s): E11.621 - Type 2 diabetes mellitus with foot ulcer; L97.509 - Non-pressure chronic ulcer of other part of unspecified foot with unspecified severity Status: Acute Assessment and Plan: * extensive LE wounds on feet and heels * left foot x-ray showed no evidence of osteomyelitis * right foot x-ray showed soft tissue gas in the plantar aspect of the heel, no evidence of osteomyelitis * Surgery following * s/p debridement in OR on 05/06 * noted OSCAR results * may need further operative intervention (6) Hypertension: Code(s): I10 - Essential (primary) hypertension Status: Acute Assessment and Plan: * known history * BP medications were on hold due to sepsis and hypotension on admission * started on low dose amlodipine with better control * follow trend of hemodynamics (7) Type 2 diabetes mellitus: Code(s): E11.9 - Type 2 diabetes mellitus without complications Status: Acute Assessment and Plan: * on accu-cheks * glycemic control per hospitalist Not much else to add -- will continue to follow intermittently/from a distance. Subjective Date/time seen: 05/13/24 10:37 Interval history: Follow-up for acute kidney injury/acute renal failure on chronic kidney disease. Status post right BKA yesterday afternoon and tolerated this intervention reasonably well; pain control appears satisfactory; no acute issues/events overnight or earlier this morning; renal function/creatiine remains stable with stable electrolytes and reasonable urine output; stable hemodynamics noted as well. Exam Narrative: General: WD/WN male in NAD Heart: normal S1 and S2; no rub Lungs: clear anteriorly Abdomen: soft, nontender, nondistended, positive bowel sounds Extremities: no cyanosis or clubbing; trace edema on LLE; s/p right BKA Skin: dressings over right stump noted Objective Data Vital Signs Vital Signs: Vital Signs Temp Pulse Resp BP Pulse Ox O2 Del Method O2 Flow Rate 05/13/24 08:00 97.4 F L 80 20 144/83 H 100 05/13/24 08:12 80 18 05/13/24 08:02 81 18 05/13/24 08:02 93 Nasal Cannula 2 05/13/24 03:57 96.7 F L 80 18 131/79 96 12/06/24 02:25 80 18 05/13/24 02:16 82 18 05/13/24 00:00 96.6 F L 81 18 113/67 92 05/12/24 20:40 79 18 05/12/24 20:35 83 96 Nasal Cannula 2 05/12/24 20:31 83 18 05/12/24 20:00 96.0 F L 80 18 133/75 99 05/12/24 19:00 97.4 F L 80 20 142/80 H 95 05/12/24 18:00 97.6 F 80 20 140/82 95 05/12/24 17:30 97.5 F L 83 20 137/93 H 95 05/12/24 17:33 80 20 122/77 95 Nasal Cannula 2 05/12/24 17:20 97.8 F 80 19 133/74 96 Nasal Cannula 2 05/12/24 17:05 80 18 134/90 97 Nasal Cannula 2 05/12/24 16:50 80 20 138/80 98 Simple Face Mask 8 05/12/24 16:37 97.9 F 80 16 130/93 H 97 Simple Face Mask 8 05/12/24 13:06 90 20 152/75 H 99 Room Air Intake/Output Intake/Output: Intake & Output 05/10/24 05/11/24 05/12/24 05/13/24 23:59 23:59 23:59 23:59 Intake Total 1395 2510 520 410 Output Total 700 1850 995 400 Balance 695 660 -292 10 Meds/Results Medications: Active Medications Generic Name Dose Route Start Last Admin Trade Name Freq PRN Reason Stop Dose Admin Acetaminophen 1,000 mg 05/12/24 17:44 Acetaminophen 500 Mg Tablet PO Q6H PRN Mild Pain (1-3) or Fever Hydrocodone Bitart/Acetaminophen 2 tab 05/12/24 17:44 Hydrocodone/Acetaminophen (*Crx) 5-325 Mg Tablet PO Q6H PRN Pain Rated 4-6 Albuterol/Ipratropium 3 ml 05/04/24 01:39 05/08/24 00:02 Ipratropium 0.5 Mg/Albuterol Sulfate 2.5 Mg Ampul.Neb 3 Ml INHALATION 3 ml Q6HRT PRN Administration shortness of breath or wheezing Albuterol/Ipratropium 3 ml 05/05/24 08:40 05/13/24 08:02 Ipratropium 0.5 Mg/Albuterol Sulfate 2.5 Mg Ampul.Neb 3 Ml INHALATION 3 ml Q6HRT JHOANA Administration Amlodipine Besylate 2.5 mg 05/08/24 09:15 05/13/24 08:58 Amlodipine Besylate 2.5 Mg Tablet PO 2.5 mg QAM JHOANA Administration Amoxicillin/Clavulanate Potassium 1 tablet 05/13/24 21:00 Amoxicillin/Clavulanate K 875-125 Mg Tab PO 05/19/24 21:01 Q12HR JHOANA Aspirin 325 mg 05/05/24 09:00 05/13/24 08:58 Aspirin 325 Mg Tablet PO 325 mg DAILY@0800 JHOANA Administration Atorvastatin Calcium 40 mg 05/04/24 09:00 05/13/24 08:58 Atorvastatin 40 Mg Tablet PO 40 mg DAILY JHOANA Administration Dextrose 12.5 gm 05/04/24 01:34 Dextrose 50% 25 Gm/50 Ml Syringe IV PUSH PRN PRN Hypoglycemia Protocol Diphenhydramine HCl 12.5 mg 05/04/24 15:08 05/07/24 23:39 Diphenhydramine Hcl Elixir 12.5 Mg/5 Ml Udc PO 12.5 mg Q6H PRN Administration Itching Fentanyl Citrate 25 mcg 05/12/24 16:18 05/12/24 17:10 Fentanyl Citrate Inj (*Crx) 100 Mcg/2 Ml Vial IV PUSH 25 mcg Q2M PRN Administration Pain Folic Acid 1 mg 05/11/24 09:00 05/13/24 08:58 Folic Acid 1 Mg Tablet PO 1 mg DAILY JHOANA Administration Glucagon 1 mg 05/04/24 01:34 Glucagon For Inj 1 Mg Vial IM PRN PRN Hypoglycemia Protocol Glucose 15 gm 05/04/24 01:34 Glucose Oral Gel 15 Gm Of Glucse In 37.5 Gm Tube PO PRN PRN Hypoglycemia Protocol Guaifenesin/Dextromethorphan 10 ml 05/05/24 08:37 05/10/24 20:43 Guaifenesin/Dextromethorphan 10 Ml Udc PO 10 ml Q4H PRN Administration Cough Hydromorphone HCl 1 mg 05/12/24 17:44 05/12/24 20:57 Hydromorphone Hcl Inj (*Crx) 1 Mg/Ml Syr IV PUSH 1 mg Q3H PRN Administration Pain Rated 7-10 Dextrose 1,000 mls @ 100 mls/hr 05/04/24 01:34 Dextrose 5% 1,000 Ml IVPB PRN PRN Hypoglycemia Protocol Insulin Aspart 3 - 6 units 05/08/24 08:00 05/13/24 12:11 Insulin Aspart (*Bkc) 100 Units/Ml SUB-Q Not Given [facility] Protocol Insulin Aspart 8 units 05/09/24 17:00 05/13/24 12:17 Insulin Aspart (*Bkc) 100 Units/Ml SUB-Q Not Given TIDWM JHOANA Insulin Glargine 20 units 05/10/24 21:00 05/12/24 20:53 Insulin Glargine (*Bkc) 100 Units/Ml SUB-Q 20 units HS JHOANA Administration Loratadine 10 mg 05/04/24 08:51 05/04/24 11:45 Loratadine 10 Mg Tablet PO 10 mg QAM PRN Administration itching Montelukast Sodium 10 mg 05/10/24 21:00 05/12/24 20:54 Montelukast Sodium 10 Mg Tablet PO 10 mg HS JHOANA Administration Multi-Ingred Cream/Lotion/Oil/Oint 1 applic 05/13/24 11:45 05/13/24 12:15 Eucerin Cream 120 Gm Jar TOPICAL 1 applic DAILY JHOANA Administration Ondansetron HCl 4 mg 05/03/24 23:51 Ondansetron Inj 4 Mg/2 Ml Vial IV PUSH Q4H PRN Nausea Oxycodone HCl 5 mg 05/12/24 17:44 05/13/24 12:09 Oxycodone Hcl (*Crx) 5 Mg Tab Ir PO 5 mg Q4H PRN Administration Pain Rated 7-10 Pantoprazole Sodium 40 mg 05/14/24 09:00 Pantoprazole 40 Mg Tablet PO QAM JHOANA Tamsulosin HCl 0.4 mg 05/10/24 21:00 05/12/24 20:54 Tamsulosin Hcl 0.4 Mg Capsule PO 0.4 mg QHS JHOANA Administration Radiology Results: ITS Impressions Head CT 05/03/24 20:56 IMPRESSION: Acute infarct involving a portion of the right MCA territory. Results reported telephonically to Dr. Duong by Dr. Langford at 9:01 PM on 05/03/2024. Cervical Spine CT 05/03/24 21:01 IMPRESSION: No acute fracture or traumatic malalignment in the cervical spine. Abdomen/Pelvis CT 05/03/24 21:06 IMPRESSION: No acute abdominopelvic process detected. Foot X-Ray 05/04/24 07:08 IMPRESSION: 1. Soft tissue gas in the plantar aspect of the heel. No evidence of osteomyelitis. Carotid Doppler Study 05/04/24 14:15 IMPRESSION: 1. <50% stenosis in the right internal carotid artery. 2. <50% stenosis in the left internal carotid artery. Renal Ultrasound 05/04/24 14:16 IMPRESSION: No definite abnormality. Ankle Brachial Index 05/08/24 06:55 IMPRESSION: 1. Decreased TBIs and normal ABIs, consistent with arterial occlusive disease. Note that ABIs may be overestimated if arteries are calcified. Chest X-Ray 05/09/24 13:15 IMPRESSION: 1. Mild atelectasis in right lower lung zone. Labs Labs: Laboratory Tests 05/13/24 05:59 WBC 9.4 Hgb 7.4 L Hct 24.9 L Plt Count 243 Sodium 138 Potassium 4.1 Chloride 105 Carbon Dioxide 32 H Anion Gap 1 L BUN 23 H Creatinine 1.50 H Estim Creat Clear Calc 62 Estimated GFR 47 L Glucose 141 H Calcium 8.3 L Phosphorus 3.8 Magnesium 1.4 L Iron 33 L TIBC 212 L % Saturation 16 L Ferritin 219.00 Albumin 2.8 L
--- NOTE | 2024-05-13 11:29 | P.PNIM_ITS ---
Progress Note: A&P Assessment and Plan (1) Acute CVA (cerebrovascular accident): Code(s): I63.9 - Cerebral infarction, unspecified Status: Acute Assessment and Plan: Patient presented on 05/03 with altered mental status, noted to have some facial droop and weakness. - Head CT showed acute infarct involving a portion of the right MCA territory -patient was not a candidate for tPA as last well known time is unavailable -patient was found on the floor, with altered mental status, has not been seen by anybody for approximately 10 days and spoke to a friend 2 days prior to coming to the ER. This is according to the records -continue statin, aspirin -appreciate Neurology evaluation -patient has a pacemaker so not a candidate for MRI. Carotid ultrasound less than 50% narrowing on both sides Echocardiogram with left ventricular hypertrophy ejection fraction of 40-45%. Will start ARB if BP tolerates and renal function normalizes. PT/OT. Off Xarelto but resume when okay with surgery. (2) Sepsis: Code(s): A41.9 - Sepsis, unspecified organism Status: Acute Assessment and Plan: Patient presented with altered mental status, fevers of 105? F, elevated lactic acid of 5.3, tachycardia -patient was given 30 mL/kg IV fluid bolus -repeat lactic was 1.8 -mild elevation in troponin is likely related to ischemic demand as patient denies any chest pain, EKG did not show any ST elevations which showed paced rhythm Was treated with sodium bicarb switched to oral bicarb. Blood culture grew gemella morbillorum. Repeat blood culture negative Discontinued cefepime and vancomycin and was switched to linezolid and Zosyn Did not require any pressors Right forefoot abscess wound culture grew Bacteroides, MSSA and Streptococcus constellatus. On Zosyn. Linezolid stopped 05/10. Change to Augmentin. (3) Diabetic foot ulcer: Qualifiers: Diabetes mellitus type: type 2 Diabetic foot ulcer location: midfoot Laterality: right Non-pressure ulcer stage: with muscle involvement without evidence of necrosis Qualified Code(s): E11.621 - Type 2 diabetes mellitus with foot ulcer; L97.415 - Non-pressure chronic ulcer of right heel and midfoot with muscle involvement without evidence of necrosis Code(s): E11.621 - Type 2 diabetes mellitus with foot ulcer; L97.509 - Non-pressure chronic ulcer of other part of unspecified foot with unspecified severity Status: Acute Assessment and Plan: Patient has bilateral diabetic foot ulcers R>L. 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 Continue routine post-op wound care. PT/OT to see (4) Acute kidney injury: Code(s): N17.9 - Acute kidney failure, unspecified Status: Acute Assessment and Plan: 05/03: Patient presented with acute kidney injury on admission, creatinine of 3.40. (baseline creatinine is 0.90-1.40 in September 2020) -patient has a history of hypertension, diabetes, is on Lasix, valsartan at home. Unknown how long he was hypotensive prior to coming to the hospital, could be related to infection, ATN -patient received 30 mL/kg IV fluid bolus Received IV fluids and also received albumin for volume expansion given that he has a history of heart failure -CK levels trending down but levels peaked at 735 -CT scan of the abdomen and pelvis did not show any hydronephrosis. renal ultrasound with no acute abnormality -nephrology was consulted Cr trending down to 1.5 so close to baseline Monitor urine output, renal function and electrolytes. (5) Type 2 diabetes mellitus: Code(s): E11.9 - Type 2 diabetes mellitus without complications Status: Acute Assessment and Plan: A1c 8.4%. The patient's blood glucose was reviewed on 05/13 Glucose remains well controlled. Continue AccuCheks covering with sliding scale. Hypoglycemia protocol available as needed. Continue to follow (6) Rhabdomyolysis: Qualifiers: Rhabdomyolysis type: non-traumatic Qualified Code(s): M62.82 - Rhabdomyolysis Code(s): M62.82 - Rhabdomyolysis Status: Acute Assessment and Plan: Patient rolled off his couch and was on the floor for unknown amount of time -elevated CK levels to 735 -CK levels trending down (7) Parkinsons disease: Code(s): G20 - Parkinson's disease Status: Acute Assessment and Plan: History of Parkinson's disease Not on treatment Follow. PT/OT (8) Hypertension: Code(s): I10 - Essential (primary) hypertension Status: Acute Assessment and Plan: Patient's blood pressure was reviewed on 05/13 Blood pressure remains well controlled. Will continue to monitor (9) Asthma: Code(s): J45.909 - Unspecified asthma, uncomplicated Status: Acute Assessment and Plan: Patient complaining of dry cough, wheezing. He states he has a history of asthma and takes inhaler p.r.n. Patient on bronchodilator Follow (10) Anemia: Code(s): D64.9 - Anemia, unspecified Status: Acute Assessment and Plan: Hgb was 10.8 on admission but quickly dropped to 8-9 range. B12/folate normal. Iron studies consistent with chronic disease Possibly related to his renal disease. He was also on Xarelto on admission Hgb dropped to 7.4 today (7.8 on repeat) Follow and transfuse as needed. Plan DVT prophylaxis: SCDs Code Status: Do not resuscitate Subjective Date/time seen: 05/13/24 11:29 Interval history: 63yo male with CHF, Parkinson, HTN, AFlutter on Xarelto, CAD here after being found down. No CP. Slight SOB. Pain controlled. On 2L but does not wear O2 at home Exam Narrative: AF 97.4 144/83 80 18 93% 2L Gen - NARD Chest - Lungs clear anteriorly and in the flanks. CV - RRR S1/S2 Abd - Soft, NT/ND, Positive BS - Mckeon secured with dark yellow urine in bag Ext - Left foot dressing clean and dry. No left pedal edema. Right BKA dressing clean and dry Neuro - more awake and alert. spech clear Psych - normal mood and affect Skin - Warm and dry. chronic venous stasis skin changes LLE Objective Data Vital Signs Vital Signs: Vital Signs - 24 hr 05/12/24 11:30 05/12/24 12:00 05/12/24 13:06 Temperature 98.8 F 97.1 F L Pulse Rate 79 80 90 Respiratory Rate 14 20 20 Blood Pressure 142/67 H 155/88 H 152/75 H Pulse Oximetry 98 96 99 Oxygen Delivery Room Air Oxygen Flow Rate 05/12/24 16:37 05/12/24 16:50 05/12/24 17:05 Temperature 97.9 F Pulse Rate 80 80 80 Respiratory Rate 16 20 18 Blood Pressure 130/93 H 138/80 134/90 Pulse Oximetry 97 98 97 Oxygen Delivery Simple Face Mask Simple Face Mask Nasal Cannula Oxygen Flow Rate 8 8 2 05/12/24 17:20 05/12/24 17:33 05/12/24 17:30 Temperature 97.8 F 97.5 F L Pulse Rate 80 80 83 Respiratory Rate 19 20 20 Blood Pressure 133/74 122/77 137/93 H Pulse Oximetry 96 95 95 Oxygen Delivery Nasal Cannula Nasal Cannula Oxygen Flow Rate 2 2 05/12/24 18:00 05/12/24 19:00 05/12/24 20:00 Temperature 97.6 F 97.4 F L 96.0 F L Pulse Rate 80 80 80 Respiratory Rate 20 20 18 Blood Pressure 140/82 142/80 H 133/75 Pulse Oximetry 95 95 99 Oxygen Delivery Oxygen Flow Rate 05/12/24 20:31 05/12/24 20:35 05/12/24 20:40 Temperature Pulse Rate 83 83 79 Respiratory Rate 18 18 Blood Pressure Pulse Oximetry 96 Oxygen Delivery Nasal Cannula Oxygen Flow Rate 2 05/13/24 00:00 05/13/24 02:16 05/13/24 02:25 Temperature 96.6 F L Pulse Rate 81 82 80 Respiratory Rate 18 18 18 Blood Pressure 113/67 Pulse Oximetry 92 Oxygen Delivery Oxygen Flow Rate 05/13/24 03:57 05/13/24 08:02 05/13/24 08:02 Temperature 96.7 F L Pulse Rate 80 81 Respiratory Rate 18 18 Blood Pressure 131/79 Pulse Oximetry 96 93 Oxygen Delivery Nasal Cannula Oxygen Flow Rate 2 05/13/24 08:12 05/13/24 08:00 Temperature 97.4 F L Pulse Rate 80 80 Respiratory Rate 18 20 Blood Pressure 144/83 H Pulse Oximetry 100 Oxygen Delivery Oxygen Flow Rate Intake/Output Intake/Output: Intake & Output 05/10/24 05/11/24 05/12/24 05/13/24 23:59 23:59 23:59 23:59 Intake Total 1395 2510 520 410 Output Total 700 1850 995 400 Balance 695 660 -043 10 Meds/Results Medications: Active Medications Generic Name Dose Route Start Last Admin Trade Name Freq PRN Reason Stop Dose Admin Acetaminophen 1,000 mg 05/12/24 17:44 Acetaminophen 500 Mg Tablet PO Q6H PRN Mild Pain (1-3) or Fever Hydrocodone Bitart/Acetaminophen 2 tab 05/12/24 17:44 Hydrocodone/Acetaminophen (*Crx) 5-325 Mg Tablet PO Q6H PRN Pain Rated 4-6 Albuterol/Ipratropium 3 ml 05/04/24 01:39 05/08/24 00:02 Ipratropium 0.5 Mg/Albuterol Sulfate 2.5 Mg Ampul.Neb 3 Ml INHALATION 3 ml Q6HRT PRN Administration shortness of breath or wheezing Albuterol/Ipratropium 3 ml 05/05/24 08:40 05/13/24 08:02 Ipratropium 0.5 Mg/Albuterol Sulfate 2.5 Mg Ampul.Neb 3 Ml INHALATION 3 ml Q6HRT JHOANA Administration Amlodipine Besylate 2.5 mg 05/08/24 09:15 05/13/24 08:58 Amlodipine Besylate 2.5 Mg Tablet PO 2.5 mg QAM JHOANA Administration Aspirin 325 mg 05/05/24 09:00 05/13/24 08:58 Aspirin 325 Mg Tablet PO 325 mg DAILY@0800 JHOANA Administration Atorvastatin Calcium 40 mg 05/04/24 09:00 05/13/24 08:58 Atorvastatin 40 Mg Tablet PO 40 mg DAILY JHOANA Administration Dextrose 12.5 gm 05/04/24 01:34 Dextrose 50% 25 Gm/50 Ml Syringe IV PUSH PRN PRN Hypoglycemia Protocol Diphenhydramine HCl 12.5 mg 05/04/24 15:08 05/07/24 23:39 Diphenhydramine Hcl Elixir 12.5 Mg/5 Ml Udc PO 12.5 mg Q6H PRN Administration Itching Fentanyl Citrate 25 mcg 05/12/24 16:18 05/12/24 17:10 Fentanyl Citrate Inj (*Crx) 100 Mcg/2 Ml Vial IV PUSH 25 mcg Q2M PRN Administration Pain Folic Acid 1 mg 05/11/24 09:00 05/13/24 08:58 Folic Acid 1 Mg Tablet PO 1 mg DAILY JHOANA Administration Glucagon 1 mg 05/04/24 01:34 Glucagon For Inj 1 Mg Vial IM PRN PRN Hypoglycemia Protocol Glucose 15 gm 05/04/24 01:34 Glucose Oral Gel 15 Gm Of Glucse In 37.5 Gm Tube PO PRN PRN Hypoglycemia Protocol Guaifenesin/Dextromethorphan 10 ml 05/05/24 08:37 05/10/24 20:43 Guaifenesin/Dextromethorphan 10 Ml Udc PO 10 ml Q4H PRN Administration Cough Hydromorphone HCl 1 mg 05/12/24 17:44 05/12/24 20:57 Hydromorphone Hcl Inj (*Crx) 1 Mg/Ml Syr IV PUSH 1 mg Q3H PRN Administration Pain Rated 7-10 Dextrose 1,000 mls @ 100 mls/hr 05/04/24 01:34 Dextrose 5% 1,000 Ml IVPB PRN PRN Hypoglycemia Protocol Piperacillin/Tazobactam/Dextrose 3.375 gm in 50 mls @ 100 mls/hr 05/10/24 18:00 05/13/24 06:30 Zosyn 3.375 Gm/Ns 50 Ml IVPB 100 mls/hr Q6HR JHOANA Administration Insulin Aspart 3 - 6 units 05/08/24 08:00 05/13/24 08:34 Insulin Aspart (*Bkc) 100 Units/Ml SUB-Q Not Given TIDWM JHOANA Protocol Insulin Aspart 8 units 05/09/24 17:00 05/13/24 09:01 Insulin Aspart (*Bkc) 100 Units/Ml SUB-Q 8 units TIDWM JHOANA Administration Insulin Glargine 20 units 05/10/24 21:00 05/12/24 20:53 Insulin Glargine (*Bkc) 100 Units/Ml SUB-Q 20 units HS JHOANA Administration Loratadine 10 mg 05/04/24 08:51 05/04/24 11:45 Loratadine 10 Mg Tablet PO 10 mg QAM PRN Administration itching Montelukast Sodium 10 mg 05/10/24 21:00 05/12/24 20:54 Montelukast Sodium 10 Mg Tablet PO 10 mg HS JHOANA Administration Ondansetron HCl 4 mg 05/03/24 23:51 Ondansetron Inj 4 Mg/2 Ml Vial IV PUSH Q4H PRN Nausea Oxycodone HCl 5 mg 05/12/24 17:44 05/13/24 08:08 Oxycodone Hcl (*Crx) 5 Mg Tab Ir PO 5 mg Q4H PRN Administration Pain Rated 7-10 Pantoprazole Sodium 40 mg 05/04/24 09:00 05/13/24 08:59 Pantoprazole Sodium Iv 40 Mg Vial IV PUSH 40 mg QAM JHOANA Administration Tamsulosin HCl 0.4 mg 05/10/24 21:00 05/12/24 20:54 Tamsulosin Hcl 0.4 Mg Capsule PO 0.4 mg QHS JHOANA Administration Triamcinolone Acetonide 1 applic 05/04/24 09:00 05/11/24 16:44 Triamcinolone Acet 0.1% Cream 80 Gm Tube TOPICAL 1 applic BID JHOANA Administration Radiology Results: ITS Impressions Head CT 05/03/24 20:56 IMPRESSION: Acute infarct involving a portion of the right MCA territory. Results reported telephonically to Dr. Duong by Dr. Langford at 9:01 PM on 05/03/2024. Cervical Spine CT 05/03/24 21:01 IMPRESSION: No acute fracture or traumatic malalignment in the cervical spine. Abdomen/Pelvis CT 05/03/24 21:06 IMPRESSION: No acute abdominopelvic process detected. Foot X-Ray 05/04/24 07:08 IMPRESSION: 1. Soft tissue gas in the plantar aspect of the heel. No evidence of osteomyelitis. Carotid Doppler Study 05/04/24 14:15 IMPRESSION: 1. <50% stenosis in the right internal carotid artery. 2. <50% stenosis in the left internal carotid artery. Renal Ultrasound 05/04/24 14:16 IMPRESSION: No definite abnormality. Ankle Brachial Index 05/08/24 06:55 IMPRESSION: 1. Decreased TBIs and normal ABIs, consistent with arterial occlusive disease. Note that ABIs may be overestimated if arteries are calcified. Chest X-Ray 05/09/24 13:15 IMPRESSION: 1. Mild atelectasis in right lower lung zone. Labs Labs: Laboratory Results - last 24 hr 05/12/24 05/12/24 05/12/24 11:34 16:43 18:02 WBC RBC Hgb Hct MCV MCH MCHC RDW Plt Count MPV Immature Gran % (Auto) Neut % (Auto) Lymph % (Auto) [place] % (Auto) Eos % (Auto) Baso % (Auto) Lymph # (Auto) [place] # (Auto) Eos # (Auto) Baso # (Auto) Abs Immat Gran (auto) Absolute Neuts (auto) Absolute Nucleated RBC Nucleated RBC % Platelet Estimate Hypochromasia Macrocytosis Schistocytes Sodium Potassium Chloride Carbon Dioxide Anion Gap BUN Creatinine Estim Creat Clear Calc Estimated GFR Glucose POC Capillary Glucose 148 H 136 H 144 H Calcium Phosphorus Magnesium Iron TIBC % Saturation Ferritin Albumin 05/12/24 05/13/24 05/13/24 20:40 05:59 08:24 WBC 9.4 RBC 2.35 L Hgb 7.4 L Hct 24.9 L MCV 106.0 H MCH 31.5 MCHC 29.7 L RDW 14.7 H Plt Count 243 MPV 9.8 Immature Gran % (Auto) 0.7 H Neut % (Auto) 76.7 H Lymph % (Auto) 12.7 L [place] % (Auto) 7.7 Eos % (Auto) 1.8 Baso % (Auto) 0.4 Lymph # (Auto) 1.19 [place] # (Auto) 0.7 H Eos # (Auto) 0.2 Baso # (Auto) 0.0 Abs Immat Gran (auto) 0.07 H Absolute Neuts (auto) 7.2 H Absolute Nucleated RBC 0.000 Nucleated RBC % 0.0 Platelet Estimate Adequate Hypochromasia 1+ Macrocytosis 1+ Schistocytes None seen Sodium 138 Potassium 4.1 Chloride 105 Carbon Dioxide 32 H Anion Gap 1 L BUN 23 H Creatinine 1.50 H Estim Creat Clear Calc 62 Estimated GFR 47 L Glucose 141 H POC Capillary Glucose 169 H 138 H Calcium 8.3 L Phosphorus 3.8 Magnesium 1.4 L Iron 33 L TIBC 212 L % Saturation 16 L Ferritin 219.00 Albumin 2.8 L
[2024-05-13 12:01] LABS: Glucose Point of Care 100 mg/dl (65-105)
[2024-05-13] MEDS: EUCERIN CREAM 120 GM JAR 1 APPLIC TOPICAL (12:15)
[2024-05-13 12:29] LABS: Hematocrit 25.1 % (42.0-52.0); Hemoglobin 7.8 g/dL (14.0-18.0)
--- NOTE | 2024-05-13 12:36 | PCNFU ---
Nutrition Follow-Up Complete: Swallowing Difficulties as related to Acute CVA as evidenced by NPO Meet estimated nutritional needs. - Progressing with intakes 25-100% Goal: Pt current nutrition is Consistent carb diet with Glucerna BID for additional 220 kcal and 10 g protein each. Nutrition recommendation: No new nutrition recommendations. Continue with current nutrition care plan and orders. Agree with orders Last recorded weight is 129.4 kg. Bowel Motility: +1 BM 07/13/23 Labs Reviewed: Hgb 7.8, Hct 25.1, GFR 47, BUN 23, Cre 1.5, Glu 141 Meds Noted: insulin, zofran protonix Skin: No pressure. Vascular Additional Notes: NPO yesterday, intakes are improving. Agree with current orders Will monitor weight, labs, skin, meds, diet orders every 3 days.
--- NOTE | 2024-05-13 14:01 | P.PNAN_ITS ---
Anes - Prog Note Post-Op Date/Time: 05/13/24 14:01 Cardiovascular status: other (anemia) Respiratory status: normal (1 L O2 NC) Airway patency: baseline Mental status: baseline Post-Op hydration status: normal Vital Signs: Last Vital Signs Temp 97.4 F L 05/13/24 08:00 Pulse 80 05/13/24 08:12 Resp 18 05/13/24 08:12 BP 144/83 H 05/13/24 08:00 Pulse Ox 93 05/13/24 08:02 O2 Del Method Nasal Cannula 05/13/24 08:02 O2 Flow Rate 2 05/13/24 08:02 FiO2 21 05/11/24 20:00 Pain Score (VAS): 0/10 I/O: Intake & Output 05/12/24 05/13/24 05/13/24 23:59 07:59 15:59 Intake Total 220 50 360 Output Total 745 400 Balance -525 -350 360 Laboratory Tests 05/13/24 12:19 05/13/24 05:59 05/12/24 05/12/24 05/12/24 16:43 18:02 20:40 WBC RBC Hgb Hct MCV MCH MCHC RDW Plt Count MPV Immature Gran % (Auto) Neut % (Auto) Lymph % (Auto) [place] % (Auto) Eos % (Auto) Baso % (Auto) Lymph # (Auto) [place] # (Auto) Eos # (Auto) Baso # (Auto) Abs Immat Gran (auto) Absolute Neuts (auto) Absolute Nucleated RBC Nucleated RBC % Platelet Estimate Hypochromasia Macrocytosis Schistocytes Sodium Potassium Chloride Carbon Dioxide Anion Gap BUN Creatinine Estim Creat Clear Calc Estimated GFR Glucose POC Capillary Glucose 136 H 144 H 169 H Calcium Phosphorus Magnesium Iron TIBC % Saturation Ferritin Albumin 05/13/24 05/13/24 05/13/24 05:59 08:24 11:25 WBC 9.4 RBC 2.35 L Hgb 7.4 L Hct 24.9 L MCV 106.0 H MCH 31.5 MCHC 29.7 L RDW 14.7 H Plt Count 243 MPV 9.8 Immature Gran % (Auto) 0.7 H Neut % (Auto) 76.7 H Lymph % (Auto) 12.7 L [place] % (Auto) 7.7 Eos % (Auto) 1.8 Baso % (Auto) 0.4 Lymph # (Auto) 1.19 [place] # (Auto) 0.7 H Eos # (Auto) 0.2 Baso # (Auto) 0.0 Abs Immat Gran (auto) 0.07 H Absolute Neuts (auto) 7.2 H Absolute Nucleated RBC 0.000 Nucleated RBC % 0.0 Platelet Estimate Adequate Hypochromasia 1+ Macrocytosis 1+ Schistocytes None seen Sodium 138 Potassium 4.1 Chloride 105 Carbon Dioxide 32 H Anion Gap 1 L BUN 23 H Creatinine 1.50 H Estim Creat Clear Calc 62 Estimated GFR 47 L Glucose 141 H POC Capillary Glucose 138 H 100 Calcium 8.3 L Phosphorus 3.8 Magnesium 1.4 L Iron 33 L TIBC 212 L % Saturation 16 L Ferritin 219.00 Albumin 2.8 L 05/13/24 12:19 WBC RBC Hgb 7.8 L Hct 25.1 L MCV MCH MCHC RDW Plt Count MPV Immature Gran % (Auto) Neut % (Auto) Lymph % (Auto) [place] % (Auto) Eos % (Auto) Baso % (Auto) Lymph # (Auto) [place] # (Auto) Eos # (Auto) Baso # (Auto) Abs Immat Gran (auto) Absolute Neuts (auto) Absolute Nucleated RBC Nucleated RBC % Platelet Estimate Hypochromasia Macrocytosis Schistocytes Sodium Potassium Chloride Carbon Dioxide Anion Gap BUN Creatinine Estim Creat Clear Calc Estimated GFR Glucose POC Capillary Glucose Calcium Phosphorus Magnesium Iron TIBC % Saturation Ferritin Albumin Post-procedural complaints: none Patient Feedback: Patient satisfied with anesthetic care.
[2024-05-13 16:29] LABS: Glucose Point of Care 175 mg/dl (65-105)
[2024-05-13] MEDS: HYDROmorphone HCL INJ (*CRX) 1 MG/ML SYR IV PUSH (17:13)
[2024-05-13 18:20] LABS: Glucose Point of Care 182 mg/dl (65-105)
[2024-05-13] MEDS: TAMSULOSIN HCL 0.4 MG CAPSULE PO (20:16)
[2024-05-13] MEDS: AMOXICILLIN/CLAVULANATE K 875-125 MG TAB 1 TABLET PO (20:17)
[2024-05-13] MEDS: MONTELUKAST SODIUM 10 MG TABLET PO (20:17)
[2024-05-13] MEDS: INSULIN GLARGINE (*BKC) 100 UNITS/ML 20 UNITS SUB-Q (20:20)
[2024-05-13 21:12] LABS: Glucose Point of Care 280 mg/dl (65-105)
[2024-05-14] VITALS (15 sets, daily range): BP systolic 118–154; BP diastolic 64–97; PULSE 72–91; RESP 16–20; TEMP 36.6–37.6; O2SAT 89–97
[2024-05-14] MEDS: IPRATROPIUM 0.5 MG/ALBUTEROL SULFATE 2.5 MG AMPUL.NEB 3 ML INHALATION ×4 (02:30→20:09)
[2024-05-14] MEDS: guaiFENesin/DEXTROMETHORPHAN 10 ML UDC PO ×2 (02:31→20:20)
[2024-05-14] MEDS: oxyCODONE HCL (*CRX) 5 MG TAB IR PO ×2 (02:31→20:19)
[2024-05-14 07:08] LABS: Basophils Absolute Auto 0.1 K/mm3 (0.0-0.1); Basophils Percent Auto 0.4 % (0.2-1.2); Eosinophils Absolute Auto 0.2 K/mm3 (0-0.3); Eosinophils Percent Auto 1.6 % (0-4.4); Hematocrit 23.5 % (42.0-52.0); Hemoglobin 7.3 g/dL (14.0-18.0); Immature Granulocyte Absolute 0.16 K/mm3 (0.00-0.031); Immature Granulocyte Percent A 1.3 % (0-0.5); Lymphocytes Absolute Auto 1.42 K/mm3 (0.9-3.2); Lymphocytes Percent Auto 11.3 % (18.3-44.2); Mean Corpuscular HGB Conc 31.1 g/dl (32-36); Mean Corpuscular Hemoglobin 32.6 pg (26-34); Mean Corpuscular Volume 104.9 fl (80-100); Monocytes Percent Auto 7.6 % (2.6-8.5); Neutrophils Absolute Auto 9.8 K/mm3 (1.3-6.7); Neutrophils Percent Auto 77.8 % (45.5-73.1); Platelet Count Result 249 k/mm3 (150-375); Red Blood Count 2.24 M/mm3 (4.6-6.20); Red Cell Distribution Width 14.7 % (11.5-14.5); White Blood Count 12.6 K/mm3 (4.5-10.0)
[2024-05-14 07:25] LABS: Alanine Aminotransferase 27 U/L (6-50); Albumin Level 2.9 g/dL (3.5-5.1); Alkaline Phosphatase 124 U/L (38-126); Anion Gap 1 mmol/L (4-12); Aspartate Amino Transferase 34 U/L (17-59); Bilirubin,Total 0.7 mg/dL (0.2-1.3); Blood Urea Nitrogen 20 mg/dL (9-20); Calcium 8.2 mg/dL (8.4-10.2); Carbon Dioxide 30 mmol/L (22-30); Chloride 104 mmol/L (98-107); Estimated CRCL calculation 62 ml/min; Estimated Glomerular Filt Rate 47; Glucose 213 mg/dL (65-110); Magnesium 1.7 mg/dL (1.6-2.3); Phosphorus 2.5 mg/dL (2.5-4.5); Potassium 4.2 mmol/L (3.4-5.0); Sodium 135 mmol/L (137-145)
[2024-05-14 07:56] LABS: Glucose Point of Care 220 mg/dl (65-105)
[2024-05-14] MEDS: INSULIN ASPART (*BKC) 100 UNITS/ML SUB-Q (09:20)
[2024-05-14] MEDS: INSULIN ASPART (*BKC) 100 UNITS/ML 8 UNITS SUB-Q ×3 (09:21→17:06)
[2024-05-14] MEDS: HYDROcodone/acetaminophen (*CRX) 5-325 MG TABLET 2 TAB PO ×2 (09:26→17:00)
[2024-05-14] MEDS: PANTOPRAZOLE 40 MG TABLET PO (09:27)
[2024-05-14] MEDS: FOLIC ACID 1 MG TABLET PO (09:27)
[2024-05-14] MEDS: ASPIRIN 325 MG TABLET PO (09:27)
[2024-05-14] MEDS: AMOXICILLIN/CLAVULANATE K 875-125 MG TAB 1 TABLET PO ×2 (09:27→20:19)
[2024-05-14] MEDS: ATORVASTATIN 40 MG TABLET PO (09:27)
[2024-05-14] MEDS: amLODIPine BESYLATE 2.5 MG TABLET PO (09:27)
[2024-05-14] MEDS: EUCERIN CREAM 120 GM JAR 1 APPLIC TOPICAL (09:33)
--- NOTE | 2024-05-14 09:44 | PM.PNGS ---
Progress Note: A&P Assessment and Plan (1) S/P BKA (below knee amputation): Code(s): Z89.519 - Acquired absence of unspecified leg below knee Status: Acute Assessment and Plan: stable, cont local wound care, OOB Subjective Subjective Date/Time Seen: 05/14/24 09:44 Interval history: no acute issues, still a little confused (?baseline) Review of Systems Review of Systems: All systems reviewed & are unremarkable except as noted in HPI and below Exam Const: General: cooperative, comfortable and no acute distress Resp: Auscultation: clear to auscultation bilaterally Cardio: Rate: regular rate Rhythm: regular rhythm GI: Inspection: normal to inspection Extrem: Other: BKA stump - drsg C/D/I Objective Data Vital Signs Vital Signs: Vital Signs - 24 hr 05/13/24 13:20 05/13/24 14:21 05/13/24 14:25 Temperature Pulse Rate Respiratory Rate Blood Pressure Pulse Oximetry 87 L 94 Oxygen Delivery Room Air Room Air Nasal Cannula Oxygen Flow Rate 1 05/13/24 14:26 05/13/24 14:36 05/13/24 12:00 Temperature 36.4 C L Pulse Rate 80 76 80 Respiratory Rate 18 18 20 Blood Pressure 125/61 Pulse Oximetry 96 Oxygen Delivery Oxygen Flow Rate 05/13/24 16:00 05/13/24 19:31 05/13/24 19:31 Temperature 36.4 C L Pulse Rate 80 80 Respiratory Rate 20 18 Blood Pressure 125/61 Pulse Oximetry 96 93 Oxygen Delivery Nasal Cannula Oxygen Flow Rate 1 05/13/24 20:00 05/13/24 19:59 05/13/24 23:59 Temperature 36.6 C 37.6 C Pulse Rate 81 80 Respiratory Rate 16 16 Blood Pressure 132/84 140/76 Pulse Oximetry 93 96 96 Oxygen Delivery Nasal Cannula Oxygen Flow Rate 2 05/14/24 02:30 05/13/24 19:41 05/14/24 02:56 Temperature Pulse Rate 78 83 79 Respiratory Rate 18 18 18 Blood Pressure Pulse Oximetry Oxygen Delivery Oxygen Flow Rate 05/14/24 04:53 05/14/24 07:59 05/14/24 07:59 Temperature 36.9 C Pulse Rate 79 72 Respiratory Rate 18 18 Blood Pressure 138/97 H Pulse Oximetry 92 89 L Oxygen Delivery Room Air Oxygen Flow Rate 05/14/24 08:08 05/14/24 08:13 05/14/24 08:00 Temperature 37.6 C Pulse Rate 78 80 Respiratory Rate 18 16 Blood Pressure 123/89 Pulse Oximetry 91 94 Oxygen Delivery Oxygen Flow Rate 1 Intake/Output Intake/Output: Intake & Output 05/11/24 05/12/24 05/13/24 05/14/24 23:59 23:59 23:59 23:59 Intake Total 2510 520 1310 Output Total 1850 995 850 950 Balance 660 -481 460 -950 Meds/Results Medications: Active Medications Generic Name Dose Route Start Last Admin Trade Name Freq PRN Reason Stop Dose Admin Acetaminophen 1,000 mg 05/12/24 17:44 Acetaminophen 500 Mg Tablet PO Q6H PRN Mild Pain (1-3) or Fever Hydrocodone Bitart/Acetaminophen 2 tab 05/12/24 17:44 05/14/24 09:26 Hydrocodone/Acetaminophen (*Crx) 5-325 Mg Tablet PO 2 tab Q6H PRN Administration Pain Rated 4-6 Albuterol/Ipratropium 3 ml 05/04/24 01:39 05/08/24 00:02 Ipratropium 0.5 Mg/Albuterol Sulfate 2.5 Mg Ampul.Neb 3 Ml INHALATION 3 ml Q6HRT PRN Administration shortness of breath or wheezing Albuterol/Ipratropium 3 ml 05/05/24 08:40 05/14/24 07:57 Ipratropium 0.5 Mg/Albuterol Sulfate 2.5 Mg Ampul.Neb 3 Ml INHALATION 3 ml Q6HRT JHOANA Administration Amlodipine Besylate 2.5 mg 05/08/24 09:15 05/14/24 09:27 Amlodipine Besylate 2.5 Mg Tablet PO 2.5 mg QAM JHOANA Administration Amoxicillin/Clavulanate Potassium 1 tablet 05/13/24 21:00 05/14/24 09:27 Amoxicillin/Clavulanate K 875-125 Mg Tab PO 05/19/24 21:01 1 tablet Q12HR JHOANA Administration Aspirin 325 mg 05/05/24 09:00 05/14/24 09:27 Aspirin 325 Mg Tablet PO 325 mg DAILY@0800 JHOANA Administration Atorvastatin Calcium 40 mg 05/04/24 09:00 05/14/24 09:27 Atorvastatin 40 Mg Tablet PO 40 mg DAILY JHOANA Administration Dextrose 12.5 gm 05/04/24 01:34 Dextrose 50% 25 Gm/50 Ml Syringe IV PUSH PRN PRN Hypoglycemia Protocol Diphenhydramine HCl 12.5 mg 05/04/24 15:08 05/07/24 23:39 Diphenhydramine Hcl Elixir 12.5 Mg/5 Ml Udc PO 12.5 mg Q6H PRN Administration Itching Fentanyl Citrate 25 mcg 05/12/24 16:18 05/12/24 17:10 Fentanyl Citrate Inj (*Crx) 100 Mcg/2 Ml Vial IV PUSH 25 mcg Q2M PRN Administration Pain Folic Acid 1 mg 05/11/24 09:00 05/14/24 09:27 Folic Acid 1 Mg Tablet PO 1 mg DAILY JHOANA Administration Glucagon 1 mg 05/04/24 01:34 Glucagon For Inj 1 Mg Vial IM PRN PRN Hypoglycemia Protocol Glucose 15 gm 05/04/24 01:34 Glucose Oral Gel 15 Gm Of Glucse In 37.5 Gm Tube PO PRN PRN Hypoglycemia Protocol Guaifenesin/Dextromethorphan 10 ml 05/05/24 08:37 05/14/24 02:31 Guaifenesin/Dextromethorphan 10 Ml Udc PO 10 ml Q4H PRN Administration Cough Hydromorphone HCl 1 mg 05/12/24 17:44 05/13/24 17:13 Hydromorphone Hcl Inj (*Crx) 1 Mg/Ml Syr IV PUSH 1 mg Q3H PRN Administration Pain Rated 7-10 Dextrose 1,000 mls @ 100 mls/hr 05/04/24 01:34 Dextrose 5% 1,000 Ml IVPB PRN PRN Hypoglycemia Protocol Insulin Aspart 3 - 6 units 05/08/24 08:00 05/14/24 09:20 Insulin Aspart (*Bkc) 100 Units/Ml SUB-Q 3 units TIDWM JHOANA Administration Protocol Insulin Aspart 8 units 05/09/24 17:00 05/14/24 09:21 Insulin Aspart (*Bkc) 100 Units/Ml SUB-Q 8 units TIDWM JHOANA Administration Insulin Glargine 20 units 05/10/24 21:00 05/13/24 20:20 Insulin Glargine (*Bkc) 100 Units/Ml SUB-Q 20 units HS JHOANA Administration Loratadine 10 mg 05/04/24 08:51 05/04/24 11:45 Loratadine 10 Mg Tablet PO 10 mg QAM PRN Administration itching Montelukast Sodium 10 mg 05/10/24 21:00 05/13/24 20:17 Montelukast Sodium 10 Mg Tablet PO 10 mg HS JHOANA Administration Multi-Ingred Cream/Lotion/Oil/Oint 1 applic 05/13/24 11:45 05/14/24 09:33 Eucerin Cream 120 Gm Jar TOPICAL 1 applic DAILY JHOANA Administration Ondansetron HCl 4 mg 05/03/24 23:51 Ondansetron Inj 4 Mg/2 Ml Vial IV PUSH Q4H PRN Nausea Oxycodone HCl 5 mg 05/12/24 17:44 05/14/24 02:31 Oxycodone Hcl (*Crx) 5 Mg Tab Ir PO 5 mg Q4H PRN Administration Pain Rated 7-10 Pantoprazole Sodium 40 mg 05/14/24 09:00 05/14/24 09:27 Pantoprazole 40 Mg Tablet PO 40 mg QAM JHOANA Administration Tamsulosin HCl 0.4 mg 05/10/24 21:00 05/13/24 20:16 Tamsulosin Hcl 0.4 Mg Capsule PO 0.4 mg QHS JHOANA Administration Radiology Results: ITS Impressions Head CT 05/03/24 20:56 IMPRESSION: Acute infarct involving a portion of the right MCA territory. Results reported telephonically to Dr. Duong by Dr. Langford at 9:01 PM on 05/03/2024. Cervical Spine CT 05/03/24 21:01 IMPRESSION: No acute fracture or traumatic malalignment in the cervical spine. Abdomen/Pelvis CT 05/03/24 21:06 IMPRESSION: No acute abdominopelvic process detected. Foot X-Ray 05/04/24 07:08 IMPRESSION: 1. Soft tissue gas in the plantar aspect of the heel. No evidence of osteomyelitis. Carotid Doppler Study 05/04/24 14:15 IMPRESSION: 1. <50% stenosis in the right internal carotid artery. 2. <50% stenosis in the left internal carotid artery. Renal Ultrasound 05/04/24 14:16 IMPRESSION: No definite abnormality. Ankle Brachial Index 05/08/24 06:55 IMPRESSION: 1. Decreased TBIs and normal ABIs, consistent with arterial occlusive disease. Note that ABIs may be overestimated if arteries are calcified. Chest X-Ray 05/09/24 13:15 IMPRESSION: 1. Mild atelectasis in right lower lung zone. Labs Labs: Laboratory Results - last 24 hr 05/13/24 05/13/24 05/13/24 11:25 12:19 16:08 WBC RBC Hgb 7.8 L Hct 25.1 L MCV MCH MCHC RDW Plt Count MPV Immature Gran % (Auto) Neut % (Auto) Lymph % (Auto) [place] % (Auto) Eos % (Auto) Baso % (Auto) Lymph # (Auto) [place] # (Auto) Eos # (Auto) Baso # (Auto) Abs Immat Gran (auto) Absolute Neuts (auto) Absolute Nucleated RBC Nucleated RBC % Sodium Potassium Chloride Carbon Dioxide Anion Gap BUN Creatinine Estim Creat Clear Calc Estimated GFR Glucose POC Capillary Glucose 100 175 H Calcium Phosphorus Magnesium Total Bilirubin AST ALT Alkaline Phosphatase Total Protein Albumin 05/13/24 05/13/24 05/14/24 18:16 20:01 06:22 WBC 12.6 H RBC 2.24 L Hgb 7.3 L Hct 23.5 L MCV 104.9 H MCH 32.6 MCHC 31.1 L RDW 14.7 H Plt Count 249 MPV 10.0 Immature Gran % (Auto) 1.3 H Neut % (Auto) 77.8 H Lymph % (Auto) 11.3 L [place] % (Auto) 7.6 Eos % (Auto) 1.6 Baso % (Auto) 0.4 Lymph # (Auto) 1.42 [place] # (Auto) 1.0 H Eos # (Auto) 0.2 Baso # (Auto) 0.1 Abs Immat Gran (auto) 0.16 H Absolute Neuts (auto) 9.8 H Absolute Nucleated RBC 0.000 Nucleated RBC % 0.0 Sodium 135 L Potassium 4.2 Chloride 104 Carbon Dioxide 30 Anion Gap 1 L BUN 20 Creatinine 1.50 H Estim Creat Clear Calc 62 Estimated GFR 47 L Glucose 213 H POC Capillary Glucose 182 H 280 H Calcium 8.2 L Phosphorus 2.5 Magnesium 1.7 Total Bilirubin 0.7 AST 34 ALT 27 Alkaline Phosphatase 124 Total Protein 7.0 Albumin 2.9 L 05/14/24 07:52 WBC RBC Hgb Hct MCV MCH MCHC RDW Plt Count MPV Immature Gran % (Auto) Neut % (Auto) Lymph % (Auto) [place] % (Auto) Eos % (Auto) Baso % (Auto) Lymph # (Auto) [place] # (Auto) Eos # (Auto) Baso # (Auto) Abs Immat Gran (auto) Absolute Neuts (auto) Absolute Nucleated RBC Nucleated RBC % Sodium Potassium Chloride Carbon Dioxide Anion Gap BUN Creatinine Estim Creat Clear Calc Estimated GFR Glucose POC Capillary Glucose 220 H Calcium Phosphorus Magnesium Total Bilirubin AST ALT Alkaline Phosphatase Total Protein Albumin
[2024-05-14 11:33] LABS: Glucose Point of Care 198 mg/dl (65-105)
--- NOTE | 2024-05-14 16:52 | PM.IMPN ---
Progress Note: A&P Assessment and Plan (1) Acute CVA (cerebrovascular accident): Code(s): I63.9 - Cerebral infarction, unspecified Status: Acute Assessment and Plan: Patient presented on 05/03 with altered mental status, noted to have some facial droop and weakness. Patient was found on the floor with altered mental status. Head CT showed acute infarct involving a portion of the right MCA territory. No MRI since he has a PM Patient was not a candidate for tPA as last well known time is unavailable Carotid ultrasound less than 50% narrowing on both sides Echo was technically difficult with normal LV size but reduced fxn (EF 40-45%), LVH, normal RV fxn, negative bubble and mild valvular disease. (Echo 2020 showing EF 50%). Continue statin, aspirin Neurology consulted and appreciate their input Will start ARB if BP tolerates and renal function normalizes. PT/OT. Off Xarelto but resume when okay with surgery. (2) Sepsis: Code(s): A41.9 - Sepsis, unspecified organism Status: Acute Assessment and Plan: Patient presented with altered mental status, fevers of 105? F, elevated lactic acid of 5.3, and tachycardia -patient was given 30 mL/kg IV fluid bolus -repeat lactic was 1.8 -mild elevation in troponin is likely related to ischemic demand as patient denies any chest pain, EKG did not show any ST elevations which showed paced rhythm Was treated with sodium bicarb. Blood culture grew gemella morbillorum. Repeat blood culture negative. Literature review shows G. morbillorum was 'very susceptible to all the beta-lactam agents (SOLOMON<1mcg/ml) except for cefoxitin'. Another article stated 'No strain was resistant to beta-lactams and vancomycin'. Discontinued cefepime and vancomycin and was switched to linezolid and Zosyn Did not require any pressors. Right forefoot abscess wound culture grew Bacteroides, MSSA and Streptococcus constellatus. On Zosyn. Linezolid stopped 05/10. Changed to Augmentin - will plan to treat for 10 days from source control (amputation). (3) Diabetic foot ulcer: Qualifiers: Diabetes mellitus type: type 2 Diabetic foot ulcer location: midfoot Laterality: right Non-pressure ulcer stage: with muscle involvement without evidence of necrosis Qualified Code(s): E11.621 - Type 2 diabetes mellitus with foot ulcer; L97.415 - Non-pressure chronic ulcer of right heel and midfoot with muscle involvement without evidence of necrosis Code(s): E11.621 - Type 2 diabetes mellitus with foot ulcer; L97.509 - Non-pressure chronic ulcer of other part of unspecified foot with unspecified severity Status: Acute Assessment and Plan: Patient has bilateral diabetic foot ulcers R>L. Left foot x-ray showed no evidence of osteomyelitis Right foot x-ray showed soft tissue gas in the plantar aspect of the heel, no evidence of osteomyelitis Surgery consulted and status post debridement 05/06/2024; bone is exposed to the right heel Patient underwent right BKA 05/12. Continue routine post-op wound care. PT/OT (4) Acute kidney injury: Code(s): N17.9 - Acute kidney failure, unspecified Status: Acute Assessment and Plan: 05/03: Patient presented with acute kidney injury on admission, creatinine of 3.40. (baseline creatinine is 0.90-1.40 in September 2020) -patient has a history of hypertension, diabetes, is on Lasix, valsartan at home. Unknown how long he was hypotensive prior to coming to the hospital, could be related to infection, ATN -patient received 30 mL/kg IV fluid bolus Received IV fluids and also received albumin for volume expansion given that he has a history of heart failure CK levels trending down but levels peaked at 735 CT scan of the abdomen and pelvis did not show any hydronephrosis. renal ultrasound with no acute abnormality Nephrology was consulted Cr trending down to 1.5 felt to be at baseline Monitor urine output, renal function and electrolytes. (5) Type 2 diabetes mellitus: Code(s): E11.9 - Type 2 diabetes mellitus without complications Status: Acute Assessment and Plan: A1c 8.4%. The patient's blood glucose was reviewed on 05/14 Glucose higher over the past 24 hours. Possibly related to patient eating better Continue AccuCheks covering with sliding scale. Hypoglycemia protocol available as needed. Diabetic diet. Continue to follow. Advance Lantus (6) Rhabdomyolysis: Qualifiers: Rhabdomyolysis type: non-traumatic Qualified Code(s): M62.82 - Rhabdomyolysis Code(s): M62.82 - Rhabdomyolysis Status: Acute Assessment and Plan: Patient rolled off his couch and was on the floor for unknown amount of time Elevated CK levels to 735 CK levels trending down (7) Parkinsons disease: Code(s): G20 - Parkinson's disease Status: Acute Assessment and Plan: History of Parkinson's disease Not on treatment Follow. PT/OT (8) Hypertension: Code(s): I10 - Essential (primary) hypertension Status: Acute Assessment and Plan: Patient's blood pressure was reviewed on 05/14 Blood pressure remains well controlled. Will continue to monitor (9) Asthma: Code(s): J45.909 - Unspecified asthma, uncomplicated Status: Acute Assessment and Plan: Patient complaining of dry cough, wheezing. He states he has a history of asthma and takes inhaler p.r.n. Patient on bronchodilator Follow (10) Anemia: Code(s): D64.9 - Anemia, unspecified Status: Acute Assessment and Plan: Hgb was 10.8 on admission but quickly dropped to 8-9 range. B12/folate normal. Iron studies consistent with chronic disease Possibly related to his renal disease. He was also on Xarelto on admission Hgb dropped to 7 range but remaining stable. Follow and transfuse as needed. Plan DVT prophylaxis: SCDs Code Status: Do not resuscitate Remove Mckeon Subjective Date/time seen: 05/14/24 16:52 Interval history: 63yo male with CHF, Parkinson, HTN, AFlutter on Xarelto, CAD here after being found down. Slept poorly due to noise. Eating okay. Cough productive of clear sputum. Laurence to the right leg down to 2/10. Exam Narrative: AF 97.9 154/78 91 20 93% 1L Gen - NARD Chest - scattered inspiratory rhonchi. CV - RRR S1/S2 with occasional extra beat Abd - Soft, NT/ND, Positive BS - Mckeon secured with dark yellow urine in bag Ext - Left foot dressing clean and dry. No left pedal edema. Right BKA dressing clean and dry Neuro - Awake, alert and appropriate. Oriented x3. speech clear Psych - normal mood and affect Skin - Warm and dry. chronic venous stasis skin changes LLE Objective Data Vital Signs Vital Signs: Vital Signs - 24 hr 05/13/24 19:31 05/13/24 19:31 05/13/24 20:00 Temperature Pulse Rate 80 Respiratory Rate 18 Blood Pressure Pulse Oximetry 93 93 Oxygen Delivery Nasal Cannula Nasal Cannula Oxygen Flow Rate 1 2 05/13/24 19:59 05/13/24 23:59 05/14/24 02:30 Temperature 97.8 F 99.6 F Pulse Rate 81 80 78 Respiratory Rate 16 16 18 Blood Pressure 132/84 140/76 Pulse Oximetry 96 96 Oxygen Delivery Oxygen Flow Rate 05/13/24 19:41 05/14/24 02:56 05/14/24 04:53 Temperature 98.4 F Pulse Rate 83 79 79 Respiratory Rate 18 18 18 Blood Pressure 138/97 H Pulse Oximetry 92 Oxygen Delivery Oxygen Flow Rate 05/14/24 07:59 05/14/24 07:59 05/14/24 08:08 Temperature Pulse Rate 72 78 Respiratory Rate 18 18 Blood Pressure Pulse Oximetry 89 L Oxygen Delivery Room Air Oxygen Flow Rate 05/14/24 08:13 05/14/24 08:00 05/14/24 12:00 Temperature 99.6 F 97.9 F Pulse Rate 80 80 Respiratory Rate 16 18 Blood Pressure 123/89 154/78 H Pulse Oximetry 91 94 93 Oxygen Delivery Oxygen Flow Rate 1 05/14/24 09:26 05/14/24 13:49 Temperature Pulse Rate 91 Respiratory Rate 20 Blood Pressure Pulse Oximetry 95 Oxygen Delivery Nasal Cannula Oxygen Flow Rate 1 Intake/Output Intake/Output: Intake & Output 05/11/24 05/12/24 05/13/24 05/14/24 23:59 23:59 23:59 23:59 Intake Total 2510 520 1310 476 Output Total 1850 995 850 950 Balance 352 -250 935 -006 Meds/Results Medications: Active Medications Generic Name Dose Route Start Last Admin Trade Name Freq PRN Reason Stop Dose Admin Acetaminophen 1,000 mg 05/12/24 17:44 Acetaminophen 500 Mg Tablet PO Q6H PRN Mild Pain (1-3) or Fever Hydrocodone Bitart/Acetaminophen 2 tab 05/12/24 17:44 05/14/24 09:26 Hydrocodone/Acetaminophen (*Crx) 5-325 Mg Tablet PO 2 tab Q6H PRN Administration Pain Rated 4-6 Albuterol/Ipratropium 3 ml 05/04/24 01:39 05/08/24 00:02 Ipratropium 0.5 Mg/Albuterol Sulfate 2.5 Mg Ampul.Neb 3 Ml INHALATION 3 ml Q6HRT PRN Administration shortness of breath or wheezing Albuterol/Ipratropium 3 ml 05/05/24 08:40 05/14/24 13:47 Ipratropium 0.5 Mg/Albuterol Sulfate 2.5 Mg Ampul.Neb 3 Ml INHALATION 3 ml Q6HRT JHOANA Administration Amlodipine Besylate 2.5 mg 05/08/24 09:15 05/14/24 09:27 Amlodipine Besylate 2.5 Mg Tablet PO 2.5 mg QAM JHOANA Administration Amoxicillin/Clavulanate Potassium 1 tablet 05/13/24 21:00 05/14/24 09:27 Amoxicillin/Clavulanate K 875-125 Mg Tab PO 05/19/24 21:01 1 tablet Q12HR JHOANA Administration Aspirin 325 mg 05/05/24 09:00 05/14/24 09:27 Aspirin 325 Mg Tablet PO 325 mg DAILY@0800 JHOANA Administration Atorvastatin Calcium 40 mg 05/04/24 09:00 05/14/24 09:27 Atorvastatin 40 Mg Tablet PO 40 mg DAILY JHOANA Administration Dextrose 12.5 gm 05/04/24 01:34 Dextrose 50% 25 Gm/50 Ml Syringe IV PUSH PRN PRN Hypoglycemia Protocol Diphenhydramine HCl 12.5 mg 05/04/24 15:08 05/07/24 23:39 Diphenhydramine Hcl Elixir 12.5 Mg/5 Ml Udc PO 12.5 mg Q6H PRN Administration Itching Fentanyl Citrate 25 mcg 05/12/24 16:18 05/12/24 17:10 Fentanyl Citrate Inj (*Crx) 100 Mcg/2 Ml Vial IV PUSH 25 mcg Q2M PRN Administration Pain Folic Acid 1 mg 05/11/24 09:00 05/14/24 09:27 Folic Acid 1 Mg Tablet PO 1 mg DAILY JHOANA Administration Glucagon 1 mg 05/04/24 01:34 Glucagon For Inj 1 Mg Vial IM PRN PRN Hypoglycemia Protocol Glucose 15 gm 05/04/24 01:34 Glucose Oral Gel 15 Gm Of Glucse In 37.5 Gm Tube PO PRN PRN Hypoglycemia Protocol Guaifenesin/Dextromethorphan 10 ml 05/05/24 08:37 05/14/24 02:31 Guaifenesin/Dextromethorphan 10 Ml Udc PO 10 ml Q4H PRN Administration Cough Hydromorphone HCl 1 mg 05/12/24 17:44 05/13/24 17:13 Hydromorphone Hcl Inj (*Crx) 1 Mg/Ml Syr IV PUSH 1 mg Q3H PRN Administration Pain Rated 7-10 Dextrose 1,000 mls @ 100 mls/hr 05/04/24 01:34 Dextrose 5% 1,000 Ml IVPB PRN PRN Hypoglycemia Protocol Insulin Aspart 3 - 6 units 05/08/24 08:00 05/14/24 12:19 Insulin Aspart (*Bkc) 100 Units/Ml SUB-Q Not Given TIDWM [facility] Protocol Insulin Aspart 8 units 05/09/24 17:00 05/14/24 12:18 Insulin Aspart (*Bkc) 100 Units/Ml SUB-Q 8 units TIDWM JHOANA Administration Insulin Glargine 20 units 05/10/24 21:00 05/13/24 20:20 Insulin Glargine (*Bkc) 100 Units/Ml SUB-Q 20 units HS JHOANA Administration Loratadine 10 mg 05/04/24 08:51 05/04/24 11:45 Loratadine 10 Mg Tablet PO 10 mg QAM PRN Administration itching Montelukast Sodium 10 mg 05/10/24 21:00 05/13/24 20:17 Montelukast Sodium 10 Mg Tablet PO 10 mg HS JHOANA Administration Multi-Ingred Cream/Lotion/Oil/Oint 1 applic 05/13/24 11:45 05/14/24 09:33 Eucerin Cream 120 Gm Jar TOPICAL 1 applic DAILY JHOANA Administration Ondansetron HCl 4 mg 05/03/24 23:51 Ondansetron Inj 4 Mg/2 Ml Vial IV PUSH Q4H PRN Nausea Oxycodone HCl 5 mg 05/12/24 17:44 05/14/24 02:31 Oxycodone Hcl (*Crx) 5 Mg Tab Ir PO 5 mg Q4H PRN Administration Pain Rated 7-10 Pantoprazole Sodium 40 mg 05/14/24 09:00 05/14/24 09:27 Pantoprazole 40 Mg Tablet PO 40 mg QAM JHOANA Administration Tamsulosin HCl 0.4 mg 05/10/24 21:00 05/13/24 20:16 Tamsulosin Hcl 0.4 Mg Capsule PO 0.4 mg QHS JHOANA Administration Radiology Results: ITS Impressions Head CT 11/26/24 20:56 IMPRESSION: Acute infarct involving a portion of the right MCA territory. Results reported telephonically to Dr. Duong by Dr. Langford at 9:01 PM on 05/03/2024. Cervical Spine CT 05/03/24 21:01 IMPRESSION: No acute fracture or traumatic malalignment in the cervical spine. Abdomen/Pelvis CT 05/03/24 21:06 IMPRESSION: No acute abdominopelvic process detected. Foot X-Ray 05/04/24 07:08 IMPRESSION: 1. Soft tissue gas in the plantar aspect of the heel. No evidence of osteomyelitis. Carotid Doppler Study 05/04/24 14:15 IMPRESSION: 1. <50% stenosis in the right internal carotid artery. 2. <50% stenosis in the left internal carotid artery. Renal Ultrasound 05/04/24 14:16 IMPRESSION: No definite abnormality. Ankle Brachial Index 05/08/24 06:55 IMPRESSION: 1. Decreased TBIs and normal ABIs, consistent with arterial occlusive disease. Note that ABIs may be overestimated if arteries are calcified. Chest X-Ray 05/09/24 13:15 IMPRESSION: 1. Mild atelectasis in right lower lung zone. Labs Labs: Laboratory Results - last 24 hr 05/13/24 05/13/24 05/14/24 18:16 20:01 06:22 WBC 12.6 H RBC 2.24 L Hgb 7.3 L Hct 23.5 L MCV 104.9 H MCH 32.6 MCHC 31.1 L RDW 14.7 H Plt Count 249 MPV 10.0 Immature Gran % (Auto) 1.3 H Neut % (Auto) 77.8 H Lymph % (Auto) 11.3 L [place] % (Auto) 7.6 Eos % (Auto) 1.6 Baso % (Auto) 0.4 Lymph # (Auto) 1.42 [place] # (Auto) 1.0 H Eos # (Auto) 0.2 Baso # (Auto) 0.1 Abs Immat Gran (auto) 0.16 H Absolute Neuts (auto) 9.8 H Absolute Nucleated RBC 0.000 Nucleated RBC % 0.0 Sodium 135 L Potassium 4.2 Chloride 104 Carbon Dioxide 30 Anion Gap 1 L BUN 20 Creatinine 1.50 H Estim Creat Clear Calc 62 Estimated GFR 47 L Glucose 213 H POC Capillary Glucose 182 H 280 H Calcium 8.2 L Phosphorus 2.5 Magnesium 1.7 Total Bilirubin 0.7 AST 34 ALT 27 Alkaline Phosphatase 124 Total Protein 7.0 Albumin 2.9 L 05/14/24 05/14/24 07:52 11:23 WBC RBC Hgb Hct MCV MCH MCHC RDW Plt Count MPV Immature Gran % (Auto) Neut % (Auto) Lymph % (Auto) [place] % (Auto) Eos % (Auto) Baso % (Auto) Lymph # (Auto) [place] # (Auto) Eos # (Auto) Baso # (Auto) Abs Immat Gran (auto) Absolute Neuts (auto) Absolute Nucleated RBC Nucleated RBC % Sodium Potassium Chloride Carbon Dioxide Anion Gap BUN Creatinine Estim Creat Clear Calc Estimated GFR Glucose POC Capillary Glucose 220 H 198 H Calcium Phosphorus Magnesium Total Bilirubin AST ALT Alkaline Phosphatase Total Protein Albumin
[2024-05-14 17:01] LABS: Glucose Point of Care 187 mg/dl (65-105)
[2024-05-14] MEDS: TAMSULOSIN HCL 0.4 MG CAPSULE PO (20:19)
[2024-05-14] MEDS: MONTELUKAST SODIUM 10 MG TABLET PO (20:19)
[2024-05-14] MEDS: INSULIN GLARGINE (*BKC) 100 UNITS/ML 24 UNITS SUB-Q (20:22)
[2024-05-14 21:01] LABS: Glucose Point of Care 215 mg/dl (65-105)
[2024-05-15] VITALS (12 sets, daily range): BP systolic 129–152; BP diastolic 73–79; PULSE 78–83; RESP 14–20; TEMP 36–37.4; O2SAT 91–97
[2024-05-15] MEDS: IPRATROPIUM 0.5 MG/ALBUTEROL SULFATE 2.5 MG AMPUL.NEB 3 ML INHALATION ×3 (02:02→13:44)
[2024-05-15] MEDS: oxyCODONE HCL (*CRX) 5 MG TAB IR PO (03:31)
[2024-05-15 07:36] LABS: Basophils Absolute Auto 0.1 K/mm3 (0.0-0.1); Basophils Percent Auto 0.4 % (0.2-1.2); Eosinophils Absolute Auto 0.2 K/mm3 (0-0.3); Eosinophils Percent Auto 1.7 % (0-4.4); Hematocrit 23.6 % (42.0-52.0); Hemoglobin 7.3 g/dL (14.0-18.0); Immature Granulocyte Absolute 0.31 K/mm3 (0.00-0.031); Immature Granulocyte Percent A 2.2 % (0-0.5); Mean Corpuscular HGB Conc 30.9 g/dl (32-36); Mean Corpuscular Hemoglobin 32.3 pg (26-34); Mean Corpuscular Volume 104.4 fl (80-100); Mean Platelet Volume 10.3 fl (7.4-10.4); Monocytes Percent Auto 7.2 % (2.6-8.5); Neutrophils Absolute Auto 11.1 K/mm3 (1.3-6.7); Neutrophils Percent Auto 78.5 % (45.5-73.1); Platelet Count Result 259 k/mm3 (150-375); Red Blood Count 2.26 M/mm3 (4.6-6.20); Red Cell Distribution Width 15.2 % (11.5-14.5); White Blood Count 14.1 K/mm3 (4.5-10.0)
[2024-05-15 07:42] LABS: Anion Gap 1 mmol/L (4-12); Blood Urea Nitrogen 19 mg/dL (9-20); Calcium 8.3 mg/dL (8.4-10.2); Carbon Dioxide 30 mmol/L (22-30); Chloride 104 mmol/L (98-107); Estimated CRCL calculation 69 ml/min; Estimated Glomerular Filt Rate 51; Glucose 178 mg/dL (65-110); Potassium 4.2 mmol/L (3.4-5.0); Sodium 135 mmol/L (137-145)
[2024-05-15 08:01] LABS: Glucose Point of Care 178 mg/dl (65-105)
[2024-05-15] MEDS: FOLIC ACID 1 MG TABLET PO (08:51)
[2024-05-15] MEDS: INSULIN ASPART (*BKC) 100 UNITS/ML 8 UNITS SUB-Q ×3 (08:52→17:28)
[2024-05-15] MEDS: PANTOPRAZOLE 40 MG TABLET PO (08:52)
[2024-05-15] MEDS: amLODIPine BESYLATE 2.5 MG TABLET PO (08:52)
[2024-05-15] MEDS: AMOXICILLIN/CLAVULANATE K 875-125 MG TAB 1 TABLET PO ×2 (08:52→22:03)
[2024-05-15] MEDS: ASPIRIN 325 MG TABLET PO (08:52)
[2024-05-15] MEDS: ATORVASTATIN 40 MG TABLET PO (08:52)
[2024-05-15] MEDS: EUCERIN CREAM 120 GM JAR 1 APPLIC TOPICAL (08:53)
--- NOTE | 2024-05-15 11:11 | PM.IMPN ---
Progress Note: A&P Assessment and Plan (1) Acute CVA (cerebrovascular accident): Code(s): I63.9 - Cerebral infarction, unspecified Status: Acute Assessment and Plan: Patient presented on 05/03 with altered mental status, noted to have some facial droop and weakness. Patient was found on the floor with altered mental status. Head CT showed acute infarct involving a portion of the right MCA territory. No MRI since he has a PM Patient was not a candidate for tPA as last well known time is unavailable Carotid ultrasound less than 50% narrowing on both sides Echo was technically difficult with normal LV size but reduced fxn (EF 40-45%), LVH, normal RV fxn, negative bubble and mild valvular disease. (Echo 2020 showing EF 50%). Continue statin, aspirin Neurology consulted and appreciate their input Will start ARB if BP tolerates and renal function normalizes. PT/OT. Off Xarelto but resume when okay with surgery. (2) Sepsis: Code(s): A41.9 - Sepsis, unspecified organism Status: Acute Assessment and Plan: Patient presented with altered mental status, fevers to 105? F, elevated lactic acid of 5.3, and tachycardia. Patient was given 30 mL/kg IV fluid bolus. Repeat lactic was 1.8. Mild elevation in troponin is likely related to ischemic demand as patient denies any chest pain. EKG did not show any ST elevations which showed paced rhythm He was treated with sodium bicarb. 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 Repeat blood culture negative. Literature review shows G. morbillorum was 'very susceptible to all the beta-lactam agents (SOLOMON<1mcg/ml) except for cefoxitin'. Another article stated 'No strain was resistant to beta-lactams and vancomycin'. Discontinued cefepime and vancomycin and was switched to linezolid and Zosyn Did not require any pressors. Right forefoot abscess wound culture grew Bacteroides, MSSA and Streptococcus constellatus. Now s/p Rt BKA. Linezolid stopped 05/10. Zosyn changed to Augmentin 05/13. Plan was to treat for 10 days from source control (amputation) for bacteremia and left heel wound but WBC climbing. WBC 12.6->14. No fevers. Could be related to surgery. Escalate abx tomorrow if WBC continues to climb. (3) Diabetic foot ulcer: Qualifiers: Diabetes mellitus type: type 2 Diabetic foot ulcer location: midfoot Laterality: right Non-pressure ulcer stage: with muscle involvement without evidence of necrosis Qualified Code(s): E11.621 - Type 2 diabetes mellitus with foot ulcer; L97.415 - Non-pressure chronic ulcer of right heel and midfoot with muscle involvement without evidence of necrosis Code(s): E11.621 - Type 2 diabetes mellitus with foot ulcer; L97.509 - Non-pressure chronic ulcer of other part of unspecified foot with unspecified severity Status: Acute Assessment and Plan: Patient has bilateral diabetic foot ulcers R>L. Left foot x-ray showed no evidence of osteomyelitis Right foot x-ray showed soft tissue gas in the plantar aspect of the heel, no evidence of osteomyelitis Surgery consulted and status post debridement 05/06/2024; bone is exposed to the right heel Patient underwent right BKA 05/12. Continue routine post-op wound care. PT/OT . Contnue routine dressing changes to the left heel. (4) Acute kidney injury: Code(s): N17.9 - Acute kidney failure, unspecified Status: Acute Assessment and Plan: Patient presented with acute kidney injury on admission with Cr 3.40. Baseline creatinine is 0.90-1.40 in 2020. Probably NANY with CKD. NANY related to HoTN, home meds (ARB, Lasix) and sepsis. CKD related to HTN, DM. Received IV fluids and albumin for volume expansion. CK levels peaked at 7[address] now trending down CT scan Abd/Pelvis did not show any hydronephrosis. Renal ultrasound with no acute abnormality Nephrology following and appreciate their input Cr trending down to 1.4 felt to be at baseline Monitor urine output, renal function and electrolytes. (5) Type 2 diabetes mellitus: Code(s): E11.9 - Type 2 diabetes mellitus without complications Status: Acute Assessment and Plan: A1c 8.4%. The patient's blood glucose was reviewed on 05/15 Glucose reasonable Continue AccuCheks covering with sliding scale. Hypoglycemia protocol available as needed. Diabetic diet. Continue to follow. Monica Patterson (6) Rhabdomyolysis: Qualifiers: Rhabdomyolysis type: non-traumatic Qualified Code(s): M62.82 - Rhabdomyolysis Code(s): M62.82 - Rhabdomyolysis Status: Acute Assessment and Plan: Patient rolled off his couch and was on the floor for unknown amount of time Elevated CK levels to 735 CK levels trending down (7) Parkinsons disease: Code(s): G20 - Parkinson's disease Status: Acute Assessment and Plan: History of Parkinson's disease Not on treatment Follow. Continue PT/OT (8) Hypertension: Code(s): I10 - Essential (primary) hypertension Status: Acute Assessment and Plan: Patient's blood pressure was reviewed on 05/15 Blood pressure remains reasonably well controlled. Will add back low dose valsartan and monitor closely. (9) Asthma: Code(s): J45.909 - Unspecified asthma, uncomplicated Status: Acute Assessment and Plan: Patient was complaining of dry cough and wheezing. He states he has a history of asthma and takes inhaler p.r.n. Patient started on bronchodilators. Symptoms better. Will de-escalate nebs. Follow (10) Anemia: Code(s): D64.9 - Anemia, unspecified Status: Acute Assessment and Plan: Hgb was 10.8 on admission but quickly dropped to 8-9 range. B12/folate normal. Iron studies consistent with chronic disease Possibly related to his renal disease. He was also on Xarelto on admission Hgb dropped to 7 range post surgey but remaining stable. Follow and transfuse as needed. Plan DVT prophylaxis: SCDs Code Status: Do not resuscitate Subjective Date/time seen: 05/15/24 11:11 Interval history: 63yo male with CHF, Parkinson, HTN, AFlutter on Xarelto, CAD here after being found down. slept off/on. No nausea or vomiting. No CP or SOB. Cough productive of clear sputum. Exam Narrative: AF 98.1 142/78 80 20 92% RA Gen - NARD Chest - left base inspiratory crackles, nml RR CV - RRR S1/S2 Abd - Soft, NT/ND, Positive BS - Mckeon secured with dark yellow urine in bag Ext - Left foot dressing clean and dry. No left pedal edema. Right BKA dressing clean and dry. Right leg drain in place with scant serosang fluid in the bulb Psych - normal mood and affect Skin - Warm and dry. chronic venous stasis skin changes LLE Objective Data Vital Signs Vital Signs: Vital Signs - 24 hr 05/14/24 12:00 12/07/24 13:49 05/14/24 16:00 Temperature 97.9 F 97.9 F Pulse Rate 80 91 79 Respiratory Rate 18 20 20 Blood Pressure 154/78 H 118/64 Pulse Oximetry 93 94 Oxygen Delivery Fraction of Inspired Oxygen 05/14/24 20:09 05/14/24 20:12 05/14/24 20:18 Temperature Pulse Rate 80 80 77 Respiratory Rate 20 18 Blood Pressure Pulse Oximetry 95 Oxygen Delivery Room Air Fraction of Inspired Oxygen 05/14/24 20:00 05/14/24 20:00 05/15/24 00:00 Temperature 98.1 F 98.4 F Pulse Rate 80 80 Respiratory Rate 16 14 Blood Pressure 138/73 140/73 Pulse Oximetry 97 91 Oxygen Delivery Room Air Fraction of Inspired Oxygen 05/15/24 02:02 05/15/24 02:10 05/15/24 04:00 Temperature 99.4 F Pulse Rate 83 79 80 Respiratory Rate 20 20 14 Blood Pressure 152/78 H Pulse Oximetry 97 Oxygen Delivery Fraction of Inspired Oxygen 05/15/24 08:05 05/15/24 08:05 05/15/24 08:20 Temperature Pulse Rate 80 80 Respiratory Rate 20 20 Blood Pressure Pulse Oximetry 92 Oxygen Delivery Room Air Fraction of Inspired Oxygen 21 05/15/24 08:00 Temperature 98.1 F Pulse Rate 80 Respiratory Rate 20 Blood Pressure 142/78 H Pulse Oximetry 94 Oxygen Delivery Fraction of Inspired Oxygen Intake/Output Intake/Output: Intake & Output 05/12/24 05/13/24 05/14/24 05/15/24 23:59 23:59 23:59 23:59 Intake Total 520 1310 716 Output Total 647 809 4866 Balance -475 518 -710 Meds/Results Medications: Active Medications Generic Name Dose Route Start Last Admin Trade Name Freq PRN Reason Stop Dose Admin Acetaminophen 1,000 mg 05/12/24 17:44 Acetaminophen 500 Mg Tablet PO Q6H PRN Mild Pain (1-3) or Fever Hydrocodone Bitart/Acetaminophen 2 tab 05/12/24 17:44 05/14/24 17:00 Hydrocodone/Acetaminophen (*Crx) 5-325 Mg Tablet PO 2 tab Q6H PRN Administration Pain Rated 4-6 Albuterol/Ipratropium 3 ml 05/04/24 01:39 05/08/24 00:02 Ipratropium 0.5 Mg/Albuterol Sulfate 2.5 Mg Ampul.Neb 3 Ml INHALATION 3 ml Q6HRT PRN Administration shortness of breath or wheezing Albuterol/Ipratropium 3 ml 05/05/24 08:40 05/15/24 08:05 Ipratropium 0.5 Mg/Albuterol Sulfate 2.5 Mg Ampul.Neb 3 Ml INHALATION 3 ml Q6HRT JHOANA Administration Amlodipine Besylate 2.5 mg 05/08/24 09:15 05/15/24 08:52 Amlodipine Besylate 2.5 Mg Tablet PO 2.5 mg QAM JHOANA Administration Amoxicillin/Clavulanate Potassium 1 tablet 05/13/24 21:00 05/15/24 08:52 Amoxicillin/Clavulanate K 875-125 Mg Tab PO 05/19/24 21:01 1 tablet Q12HR JHOANA Administration Aspirin 325 mg 05/05/24 09:00 05/15/24 08:52 Aspirin 325 Mg Tablet PO 325 mg DAILY@0800 JHOANA Administration Atorvastatin Calcium 40 mg 05/04/24 09:00 05/15/24 08:52 Atorvastatin 40 Mg Tablet PO 40 mg DAILY JHOANA Administration Dextrose 12.5 gm 05/04/24 01:34 Dextrose 50% 25 Gm/50 Ml Syringe IV PUSH PRN PRN Hypoglycemia Protocol Diphenhydramine HCl 12.5 mg 05/04/24 15:08 05/07/24 23:39 Diphenhydramine Hcl Elixir 12.5 Mg/5 Ml Udc PO 12.5 mg Q6H PRN Administration Itching Fentanyl Citrate 25 mcg 05/12/24 16:18 05/12/24 17:10 Fentanyl Citrate Inj (*Crx) 100 Mcg/2 Ml Vial IV PUSH 25 mcg Q2M PRN Administration Pain Folic Acid 1 mg 05/11/24 09:00 05/15/24 08:51 Folic Acid 1 Mg Tablet PO 1 mg DAILY JHOANA Administration Glucagon 1 mg 05/04/24 01:34 Glucagon For Inj 1 Mg Vial IM PRN PRN Hypoglycemia Protocol Glucose 15 gm 05/04/24 01:34 Glucose Oral Gel 15 Gm Of Glucse In 37.5 Gm Tube PO PRN PRN Hypoglycemia Protocol Guaifenesin/Dextromethorphan 10 ml 05/05/24 08:37 05/14/24 20:20 Guaifenesin/Dextromethorphan 10 Ml Udc PO 10 ml Q4H PRN Administration Cough Hydromorphone HCl 1 mg 05/12/24 17:44 05/13/24 17:13 Hydromorphone Hcl Inj (*Crx) 1 Mg/Ml Syr IV PUSH 1 mg Q3H PRN Administration Pain Rated 7-10 Dextrose 1,000 mls @ 100 mls/hr 05/04/24 01:34 Dextrose 5% 1,000 Ml IVPB PRN PRN Hypoglycemia Protocol Insulin Aspart 3 - 6 units 05/08/24 08:00 05/15/24 08:53 Insulin Aspart (*Bkc) 100 Units/Ml SUB-Q Not Given TIDWM JHOANA Protocol Insulin Aspart 8 units 05/09/24 17:00 05/15/24 08:52 Insulin Aspart (*Bkc) 100 Units/Ml SUB-Q 8 units TIDWM JHOANA Administration Insulin Glargine 24 units 05/14/24 21:00 05/14/24 20:22 Insulin Glargine (*Bkc) 100 Units/Ml SUB-Q 24 units HS JHOANA Administration Loratadine 10 mg 05/04/24 08:51 05/04/24 11:45 Loratadine 10 Mg Tablet PO 10 mg QAM PRN Administration itching Montelukast Sodium 10 mg 05/10/24 21:00 05/14/24 20:19 Montelukast Sodium 10 Mg Tablet PO 10 mg HS JHOANA Administration Multi-Ingred Cream/Lotion/Oil/Oint 1 applic 05/13/24 11:45 05/15/24 08:53 Eucerin Cream 120 Gm Jar TOPICAL 1 applic DAILY JHOANA Administration Ondansetron HCl 4 mg 05/03/24 23:51 Ondansetron Inj 4 Mg/2 Ml Vial IV PUSH Q4H PRN Nausea Oxycodone HCl 5 mg 05/12/24 17:44 05/15/24 03:31 Oxycodone Hcl (*Crx) 5 Mg Tab Ir PO 5 mg Q4H PRN Administration Pain Rated 7-10 Pantoprazole Sodium 40 mg 05/14/24 09:00 05/15/24 08:52 Pantoprazole 40 Mg Tablet PO 40 mg QAM JHOANA Administration Tamsulosin HCl 0.4 mg 05/10/24 21:00 05/14/24 20:19 Tamsulosin Hcl 0.4 Mg Capsule PO 0.4 mg QHS JHOANA Administration Radiology Results: ITS Impressions Head CT 05/03/24 20:56 IMPRESSION: Acute infarct involving a portion of the right MCA territory. Results reported telephonically to Dr. Duong by Dr. Langford at 9:01 PM on 05/03/2024. Cervical Spine CT 05/03/24 21:01 IMPRESSION: No acute fracture or traumatic malalignment in the cervical spine. Abdomen/Pelvis CT 05/03/24 21:06 IMPRESSION: No acute abdominopelvic process detected. Foot X-Ray 05/04/24 07:08 IMPRESSION: 1. Soft tissue gas in the plantar aspect of the heel. No evidence of osteomyelitis. Carotid Doppler Study 05/04/24 14:15 IMPRESSION: 1. <50% stenosis in the right internal carotid artery. 2. <50% stenosis in the left internal carotid artery. Renal Ultrasound 05/04/24 14:16 IMPRESSION: No definite abnormality. Ankle Brachial Index 05/08/24 06:55 IMPRESSION: 1. Decreased TBIs and normal ABIs, consistent with arterial occlusive disease. Note that ABIs may be overestimated if arteries are calcified. Chest X-Ray 05/09/24 13:15 IMPRESSION: 1. Mild atelectasis in right lower lung zone. Labs Labs: Laboratory Results - last 24 hr 05/14/24 05/14/24 05/14/24 11:23 16:55 20:13 WBC RBC Hgb Hct MCV MCH MCHC RDW Plt Count MPV Immature Gran % (Auto) Neut % (Auto) Lymph % (Auto) [place] % (Auto) Eos % (Auto) Baso % (Auto) Lymph # (Auto) [place] # (Auto) Eos # (Auto) Baso # (Auto) Abs Immat Gran (auto) Absolute Neuts (auto) Absolute Nucleated RBC Nucleated RBC % Sodium Potassium Chloride Carbon Dioxide Anion Gap BUN Creatinine Estim Creat Clear Calc Estimated GFR Glucose POC Capillary Glucose 198 H 187 H 215 H Calcium 05/15/24 05/15/24 06:35 07:58 WBC 14.1 H RBC 2.26 L Hgb 7.3 L Hct 23.6 L MCV 104.4 H MCH 32.3 MCHC 30.9 L RDW 15.2 H Plt Count 259 MPV 10.3 Immature Gran % (Auto) 2.2 H Neut % (Auto) 78.5 H Lymph % (Auto) 10.0 L [place] % (Auto) 7.2 Eos % (Auto) 1.7 Baso % (Auto) 0.4 Lymph # (Auto) 1.40 [place] # (Auto) 1.0 H Eos # (Auto) 0.2 Baso # (Auto) 0.1 Abs Immat Gran (auto) 0.31 H Absolute Neuts (auto) 11.1 H Absolute Nucleated RBC 0.000 Nucleated RBC % 0.0 Sodium 135 L Potassium 4.2 Chloride 104 Carbon Dioxide 30 Anion Gap 1 L BUN 19 Creatinine 1.40 H Estim Creat Clear Calc 69 Estimated GFR 51 L Glucose 178 H POC Capillary Glucose 178 H Calcium 8.3 L
--- NOTE | 2024-05-15 11:26 | PM.PNGS ---
Progress Note: A&P Assessment and Plan (1) S/P BKA (below knee amputation): Code(s): Z89.519 - Acquired absence of unspecified leg below knee Status: Acute Assessment and Plan: cont local wound care and drain for now, PT/OT Subjective Subjective Date/Time Seen: 05/15/24 11:26 Interval history: feels better, more mentally alert today, some RLE pain Review of Systems Review of Systems: All systems reviewed & are unremarkable except as noted in HPI and below Exam Const: General: cooperative, comfortable and no acute distress GI: Inspection: normal to inspection Extrem: Other: R BKA stump - incision C/D/I, VIRI c mod s/s output Objective Data Vital Signs Vital Signs: Vital Signs - 24 hr 05/14/24 12:00 05/14/24 13:49 05/14/24 16:00 Temperature 36.6 C 36.6 C Pulse Rate 80 91 79 Respiratory Rate 18 20 20 Blood Pressure 154/78 H 118/64 Pulse Oximetry 93 94 Oxygen Delivery Fraction of Inspired Oxygen 05/14/24 20:09 05/14/24 20:12 05/14/24 20:18 Temperature Pulse Rate 80 80 77 Respiratory Rate 20 18 Blood Pressure Pulse Oximetry 95 Oxygen Delivery Room Air Fraction of Inspired Oxygen 05/14/24 20:00 05/14/24 20:00 05/15/24 00:00 Temperature 36.7 C 36.9 C Pulse Rate 80 80 Respiratory Rate 16 14 Blood Pressure 138/73 140/73 Pulse Oximetry 97 91 Oxygen Delivery Room Air Fraction of Inspired Oxygen 05/15/24 02:02 05/15/24 02:10 05/15/24 04:00 Temperature 37.4 C Pulse Rate 83 79 80 Respiratory Rate 20 20 14 Blood Pressure 152/78 H Pulse Oximetry 97 Oxygen Delivery Fraction of Inspired Oxygen 05/15/24 08:05 05/15/24 08:05 05/15/24 08:20 Temperature Pulse Rate 80 80 Respiratory Rate 20 20 Blood Pressure Pulse Oximetry 92 Oxygen Delivery Room Air Fraction of Inspired Oxygen 21 05/15/24 08:00 Temperature 36.7 C Pulse Rate 80 Respiratory Rate 20 Blood Pressure 142/78 H Pulse Oximetry 94 Oxygen Delivery Fraction of Inspired Oxygen Intake/Output Intake/Output: Intake & Output 05/12/24 05/13/24 05/14/24 05/15/24 23:59 23:59 23:59 23:59 Intake Total 520 1310 716 100 Output Total 949 382 7261 Balance -475 547 -713 100 Meds/Results Medications: Active Medications Generic Name Dose Route Start Last Admin Trade Name Freq PRN Reason Stop Dose Admin Acetaminophen 1,000 mg 05/12/24 17:44 Acetaminophen 500 Mg Tablet PO Q6H PRN Mild Pain (1-3) or Fever Hydrocodone Bitart/Acetaminophen 2 tab 05/12/24 17:44 05/14/24 17:00 Hydrocodone/Acetaminophen (*Crx) 5-325 Mg Tablet PO 2 tab Q6H PRN Administration Pain Rated 4-6 Albuterol/Ipratropium 3 ml 05/04/24 01:39 05/08/24 00:02 Ipratropium 0.5 Mg/Albuterol Sulfate 2.5 Mg Ampul.Neb 3 Ml INHALATION 3 ml Q6HRT PRN Administration shortness of breath or wheezing Albuterol/Ipratropium 3 ml 05/15/24 14:00 Ipratropium 0.5 Mg/Albuterol Sulfate 2.5 Mg Ampul.Neb 3 Ml INHALATION [id number] JHOANA Amlodipine Besylate 2.5 mg 05/08/24 09:15 05/15/24 08:52 Amlodipine Besylate 2.5 Mg Tablet PO 2.5 mg QAM JHOANA Administration Amoxicillin/Clavulanate Potassium 1 tablet 05/13/24 21:00 05/15/24 08:52 Amoxicillin/Clavulanate K 875-125 Mg Tab PO 05/19/24 21:01 1 tablet Q12HR JHOANA Administration Aspirin 325 mg 05/05/24 09:00 05/15/24 08:52 Aspirin 325 Mg Tablet PO 325 mg DAILY@0800 JHOANA Administration Atorvastatin Calcium 40 mg 05/04/24 09:00 05/15/24 08:52 Atorvastatin 40 Mg Tablet PO 40 mg DAILY JHOANA Administration Dextrose 12.5 gm 05/04/24 01:34 Dextrose 50% 25 Gm/50 Ml Syringe IV PUSH PRN PRN Hypoglycemia Protocol Diphenhydramine HCl 12.5 mg 05/04/24 15:08 05/07/24 23:39 Diphenhydramine Hcl Elixir 12.5 Mg/5 Ml Udc PO 12.5 mg Q6H PRN Administration Itching Fentanyl Citrate 25 mcg 05/12/24 16:18 05/12/24 17:10 Fentanyl Citrate Inj (*Crx) 100 Mcg/2 Ml Vial IV PUSH 25 mcg Q2M PRN Administration Pain Folic Acid 1 mg 05/11/24 09:00 05/15/24 08:51 Folic Acid 1 Mg Tablet PO 1 mg DAILY JHOANA Administration Glucagon 1 mg 05/04/24 01:34 Glucagon For Inj 1 Mg Vial IM PRN PRN Hypoglycemia Protocol Glucose 15 gm 05/04/24 01:34 Glucose Oral Gel 15 Gm Of Glucse In 37.5 Gm Tube PO PRN PRN Hypoglycemia Protocol Guaifenesin/Dextromethorphan 10 ml 05/05/24 08:37 05/14/24 20:20 Guaifenesin/Dextromethorphan 10 Ml Udc PO 10 ml Q4H PRN Administration Cough Hydromorphone HCl 1 mg 05/12/24 17:44 05/13/24 17:13 Hydromorphone Hcl Inj (*Crx) 1 Mg/Ml Syr IV PUSH 1 mg Q3H PRN Administration Pain Rated 7-10 Dextrose 1,000 mls @ 100 mls/hr 05/04/24 01:34 Dextrose 5% 1,000 Ml IVPB PRN PRN Hypoglycemia Protocol Insulin Aspart 3 - 6 units 05/08/24 08:00 05/15/24 08:53 Insulin Aspart (*Bkc) 100 Units/Ml SUB-Q Not Given TIDWM JHOANA Protocol Insulin Aspart 8 units 05/09/24 17:00 05/15/24 08:52 Insulin Aspart (*Bkc) 100 Units/Ml SUB-Q 8 units TIDWM JHOANA Administration Insulin Glargine 24 units 05/14/24 21:00 05/14/24 20:22 Insulin Glargine (*Bkc) 100 Units/Ml SUB-Q 24 units HS JHOANA Administration Loratadine 10 mg 05/04/24 08:51 05/04/24 11:45 Loratadine 10 Mg Tablet PO 10 mg QAM PRN Administration itching Montelukast Sodium 10 mg 05/10/24 21:00 05/14/24 20:19 Montelukast Sodium 10 Mg Tablet PO 10 mg HS JHOANA Administration Multi-Ingred Cream/Lotion/Oil/Oint 1 applic 05/13/24 11:45 05/15/24 08:53 Eucerin Cream 120 Gm Jar TOPICAL 1 applic DAILY JHOANA Administration Ondansetron HCl 4 mg 05/03/24 23:51 Ondansetron Inj 4 Mg/2 Ml Vial IV PUSH Q4H PRN Nausea Oxycodone HCl 5 mg 05/12/24 17:44 05/15/24 03:31 Oxycodone Hcl (*Crx) 5 Mg Tab Ir PO 5 mg Q4H PRN Administration Pain Rated 7-10 Pantoprazole Sodium 40 mg 05/14/24 09:00 05/15/24 08:52 Pantoprazole 40 Mg Tablet PO 40 mg QAM JHOANA Administration Tamsulosin HCl 0.4 mg 05/10/24 21:00 05/14/24 20:19 Tamsulosin Hcl 0.4 Mg Capsule PO 0.4 mg QHS JHOANA Administration Radiology Results: ITS Impressions Head CT 05/03/24 20:56 IMPRESSION: Acute infarct involving a portion of the right MCA territory. Results reported telephonically to Dr. Duong by Dr. Langford at 9:01 PM on 05/03/2024. Cervical Spine CT 05/03/24 21:01 IMPRESSION: No acute fracture or traumatic malalignment in the cervical spine. Abdomen/Pelvis CT 05/03/24 21:06 IMPRESSION: No acute abdominopelvic process detected. Foot X-Ray 05/04/24 07:08 IMPRESSION: 1. Soft tissue gas in the plantar aspect of the heel. No evidence of osteomyelitis. Carotid Doppler Study 05/04/24 14:15 IMPRESSION: 1. <50% stenosis in the right internal carotid artery. 2. <50% stenosis in the left internal carotid artery. Renal Ultrasound 05/04/24 14:16 IMPRESSION: No definite abnormality. Ankle Brachial Index 05/08/24 06:55 IMPRESSION: 1. Decreased TBIs and normal ABIs, consistent with arterial occlusive disease. Note that ABIs may be overestimated if arteries are calcified. Chest X-Ray 05/09/24 13:15 IMPRESSION: 1. Mild atelectasis in right lower lung zone. Labs Labs: Laboratory Results - last 24 hr 05/14/24 05/14/24 05/14/24 11:23 16:55 20:13 WBC RBC Hgb Hct MCV MCH MCHC RDW Plt Count MPV Immature Gran % (Auto) Neut % (Auto) Lymph % (Auto) [place] % (Auto) Eos % (Auto) Baso % (Auto) Lymph # (Auto) [place] # (Auto) Eos # (Auto) Baso # (Auto) Abs Immat Gran (auto) Absolute Neuts (auto) Absolute Nucleated RBC Nucleated RBC % Sodium Potassium Chloride Carbon Dioxide Anion Gap BUN Creatinine Estim Creat Clear Calc Estimated GFR Glucose POC Capillary Glucose 198 H 187 H 215 H Calcium 05/15/24 05/15/24 06:35 07:58 WBC 14.1 H RBC 2.26 L Hgb 7.3 L Hct 23.6 L MCV 104.4 H MCH 32.3 MCHC 30.9 L RDW 15.2 H Plt Count 259 MPV 10.3 Immature Gran % (Auto) 2.2 H Neut % (Auto) 78.5 H Lymph % (Auto) 10.0 L [place] % (Auto) 7.2 Eos % (Auto) 1.7 Baso % (Auto) 0.4 Lymph # (Auto) 1.40 [place] # (Auto) 1.0 H Eos # (Auto) 0.2 Baso # (Auto) 0.1 Abs Immat Gran (auto) 0.31 H Absolute Neuts (auto) 11.1 H Absolute Nucleated RBC 0.000 Nucleated RBC % 0.0 Sodium 135 L Potassium 4.2 Chloride 104 Carbon Dioxide 30 Anion Gap 1 L BUN 19 Creatinine 1.40 H Estim Creat Clear Calc 69 Estimated GFR 51 L Glucose 178 H POC Capillary Glucose 178 H Calcium 8.3 L
[2024-05-15 11:53] LABS: Glucose Point of Care 179 mg/dl (65-105)
[2024-05-15] MEDS: HYDROcodone/acetaminophen (*CRX) 5-325 MG TABLET 2 TAB PO (12:24)
--- NOTE | 2024-05-15 12:26 | PCOTNOTE ---
Attempted to see pt for OT treatment this AM. Pt was watching tv at therapist arrival with breakfast off to the side untouched. Pt declined to participate in therapy session stating I have a lot going on and and I haven't had breakfast yet. Pt states that he did not call for assistance to have containers/packets opened for him due to increase tremors. Pt was setup with breakfast in bed with therapist opening containers/packets at pt request. Pt was educated on the importance of therapy participation with pt continuing to decline.
[2024-05-15 17:21] LABS: Glucose Point of Care 149 mg/dl (65-105)
[2024-05-15] MEDS: INSULIN GLARGINE (*BKC) 100 UNITS/ML 24 UNITS SUB-Q (22:01)
[2024-05-15] MEDS: HYDROmorphone HCL INJ (*CRX) 1 MG/ML SYR IV PUSH (22:02)
[2024-05-15] MEDS: TAMSULOSIN HCL 0.4 MG CAPSULE PO (22:03)
[2024-05-15] MEDS: MONTELUKAST SODIUM 10 MG TABLET PO (22:03)
[2024-05-15] MEDS: carvediloL 6.25 MG TABLET PO (22:08)
[2024-05-15 22:18] LABS: Glucose Point of Care 175 mg/dl (65-105)
[2024-05-16] VITALS (13 sets, daily range): BP systolic 125–180; BP diastolic 76–110; PULSE 74–85; RESP 16–24; TEMP 35.8–36.9; O2SAT 92–100
[2024-05-16 07:08] LABS: Basophils Absolute Auto 0.1 K/mm3 (0.0-0.1); Basophils Percent Auto 0.5 % (0.2-1.2); Eosinophils Absolute Auto 0.3 K/mm3 (0-0.3); Hematocrit 24.2 % (42.0-52.0); Hemoglobin 7.3 g/dL (14.0-18.0); Immature Granulocyte Absolute 0.15 K/mm3 (0.00-0.031); Immature Granulocyte Percent A 1.1 % (0-0.5); Lymphocytes Absolute Auto 1.31 K/mm3 (0.9-3.2); Mean Corpuscular HGB Conc 30.2 g/dl (32-36); Mean Corpuscular Hemoglobin 31.5 pg (26-34); Mean Corpuscular Volume 104.3 fl (80-100); Mean Platelet Volume 10.2 fl (7.4-10.4); Monocytes Absolute Auto 0.9 K/mm3 (0.1-0.6); Neutrophils Absolute Auto 10.4 K/mm3 (1.3-6.7); Neutrophils Percent Auto 79.4 % (45.5-73.1); Platelet Count Result 268 k/mm3 (150-375); Red Blood Count 2.32 M/mm3 (4.6-6.20); Red Cell Distribution Width 15.7 % (11.5-14.5); White Blood Count 13.1 K/mm3 (4.5-10.0)
[2024-05-16 07:20] LABS: Alanine Aminotransferase 31 U/L (6-50); Albumin Level 2.8 g/dL (3.5-5.1); Alkaline Phosphatase 124 U/L (38-126); Anion Gap 2 mmol/L (4-12); Aspartate Amino Transferase 40 U/L (17-59); Blood Urea Nitrogen 19 mg/dL (9-20); Calcium 8.4 mg/dL (8.4-10.2); Carbon Dioxide 29 mmol/L (22-30); Chloride 104 mmol/L (98-107); Estimated CRCL calculation 80 ml/min; Estimated Glomerular Filt Rate > 60; Glucose 166 mg/dL (65-110); Magnesium 1.5 mg/dL (1.6-2.3); Phosphorus 2.7 mg/dL (2.5-4.5); Potassium 4.2 mmol/L (3.4-5.0); Sodium 135 mmol/L (137-145)
[2024-05-16 07:28] LABS: Glucose Point of Care 152 mg/dl (65-105)
[2024-05-16] MEDS: EUCERIN CREAM 120 GM JAR 1 APPLIC TOPICAL (08:38)
[2024-05-16] MEDS: FOLIC ACID 1 MG TABLET PO (08:38)
[2024-05-16] MEDS: AMOXICILLIN/CLAVULANATE K 875-125 MG TAB 1 TABLET PO ×2 (08:38→21:13)
[2024-05-16] MEDS: PANTOPRAZOLE 40 MG TABLET PO (08:38)
[2024-05-16] MEDS: ATORVASTATIN 40 MG TABLET PO (08:38)
[2024-05-16] MEDS: ASPIRIN 325 MG TABLET PO (08:38)
[2024-05-16] MEDS: VALSARTAN 40 MG TABLET PO (08:38)
[2024-05-16] MEDS: carvediloL 6.25 MG TABLET PO ×2 (08:38→21:13)
[2024-05-16] MEDS: INSULIN ASPART (*BKC) 100 UNITS/ML 8 UNITS SUB-Q (08:39)
[2024-05-16] MEDS: IPRATROPIUM 0.5 MG/ALBUTEROL SULFATE 2.5 MG AMPUL.NEB 3 ML INHALATION ×3 (08:57→19:34)
--- NOTE | 2024-05-16 10:01 | PC.NURSE ---
This RN placed orders for STAT CT Brain and STAT head/neck CTA during code stroke.
--- NOTE | 2024-05-16 10:02 | PCPTNOTE ---
PT treatment was not able to be completed. While preparing to initiate PT patient presents with change in medical status. Patient began to have delayed and garbled speech with muscle spasming/tremors of the L UE, neck and face. RN called to room to assess patient and Physician called to room.
--- NOTE | 2024-05-16 10:04 | P.PNIM_ITS ---
Progress Note: A&P Assessment and Plan (1) Seizure: Code(s): R56.9 - Unspecified convulsions Status: Acute Assessment and Plan: Patient with seizure like activity and worsening left UE and facial paresis/paralysis. Possible seizure vs new thrombotic CVA. He is off his Xarelto due to his surgery. He is on full ASA and Lipitor. Stat CT and CTA head/neck ordered. CT head and CTA head/neck - discussed with radiology: no large thrombosis and appears all related to prior event but final read pending to see if new CVA vs remodeling of prior event. Reconsult neuro. Add Keppra for seizures. Neuro checks. Ativan prn. NPO. Repeat exam showing improved speech but still mildly garbled. Still with left facial paralysis and left UE paresis. Complains of right flank pain that is palpable. He feels related to CT table and being pulled over. Check EKG and troponin. Tele. (2) Acute CVA (cerebrovascular accident): Code(s): I63.9 - Cerebral infarction, unspecified Status: Acute Assessment and Plan: Patient presented on 05/03 with altered mental status, noted to have some facial droop and weakness. Patient was found on the floor with altered mental status. Head CT showed acute infarct involving a portion of the right MCA territory. No MRI since he has a PM Patient was not a candidate for tPA as last well known time is unavailable Carotid ultrasound less than 50% narrowing on both sides Echo was technically difficult with normal LV size but reduced fxn (EF 40-45%), LVH, normal RV fxn, negative bubble and mild valvular disease. (Echo 2020 showing EF 50%). Continue statin, aspirin. Restarted ARB and Coreg Neurology consulted and appreciate their input PT/OT. Off Xarelto but resume when okay with surgery. (3) Sepsis: Code(s): A41.9 - Sepsis, unspecified organism Status: Acute Assessment and Plan: Patient presented with altered mental status, fevers to 105? F, elevated lactic acid of 5.3, and tachycardia. Patient was given 30 mL/kg IV fluid bolus. Repeat lactic was 1.8. Mild elevation in troponin is likely related to ischemic demand as patient denies any chest pain. EKG did not show any ST elevations which showed paced rhythm He was treated with sodium bicarb. 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 Repeat blood culture negative. Literature review shows G. morbillorum was 'very susceptible to all the beta- lactam agents (SOLOMON<1mcg/ml) except for cefoxitin'. Another article stated 'No strain was resistant to beta-lactams and vancomycin'. Discontinued cefepime and vancomycin and was switched to linezolid and Zosyn Did not require any pressors. Right forefoot abscess wound culture grew Bacteroides, MSSA and Streptococcus constellatus. Now s/p Rt BKA. Linezolid stopped 05/10. Zosyn changed to Augmentin 05/13. Plan was to treat for 10 days from source control (amputation) for bacteremia and left heel wound but WBC climbing. WBC 12.6->14 -> 13. No fevers. Could be related to surgery. Monitor WBC (4) Diabetic foot ulcer: Qualifiers: Diabetes mellitus type: type 2 Diabetic foot ulcer location: midfoot Laterality: right Non-pressure ulcer stage: with muscle involvement without evidence of necrosis Qualified Code(s): E11.621 - Type 2 diabetes mellitus with foot ulcer; L97.415 - Non-pressure chronic ulcer of right heel and midfoot with muscle involvement without evidence of necrosis Code(s): E11.621 - Type 2 diabetes mellitus with foot ulcer; L97.509 - Non-pressure chronic ulcer of other part of unspecified foot with unspecified severity Status: Acute Assessment and Plan: Patient has bilateral diabetic foot ulcers R>L. Left foot x-ray showed no evidence of osteomyelitis Right foot x-ray showed soft tissue gas in the plantar aspect of the heel, no evidence of osteomyelitis Surgery consulted and status post debridement 05/06/2024; bone is exposed to the right heel Patient underwent right BKA 05/12. Continue routine post-op wound care. PT/OT . Continue routine dressing changes to the left heel. (5) Acute kidney injury: Code(s): N17.9 - Acute kidney failure, unspecified Status: Acute Assessment and Plan: Patient presented with acute kidney injury on admission with Cr 3.40. Baseline creatinine is 0.90-1.40 in 2020. Probably NANY with CKD. NANY related to HoTN, home meds (ARB, Lasix) and sepsis. CKD related to HTN, DM. Received IV fluids and albumin for volume expansion. CK levels peaked at 7[address] now trending down CT scan Abd/Pelvis did not show any hydronephrosis. Renal ultrasound with no acute abnormality Nephrology following and appreciate their input Cr trending down to 1.2 felt to be at baseline. ARB resumed at low dose. Monitor urine output, renal function and electrolytes. (6) Type 2 diabetes mellitus: Code(s): E11.9 - Type 2 diabetes mellitus without complications Status: Acute Assessment and Plan: A1c 8.4%. The patient's blood glucose was reviewed on 05/16 Glucose reasonable Continue AccuCheks covering with sliding scale. Hypoglycemia protocol available as needed. Continue to follow. NPO. Hold Lantus until diet resumed (7) Rhabdomyolysis: Qualifiers: Rhabdomyolysis type: non-traumatic Qualified Code(s): M62.82 - Rhabdomyolysis Code(s): M62.82 - Rhabdomyolysis Status: Acute Assessment and Plan: Patient rolled off his couch and was on the floor for unknown amount of time Elevated CK levels to 735 CK levels trending down (8) Parkinsons disease: Code(s): G20 - Parkinson's disease Status: Acute Assessment and Plan: History of Parkinson's disease Not on treatment Follow. Continue PT/OT (9) Hypertension: Code(s): I10 - Essential (primary) hypertension Status: Acute Assessment and Plan: Patient's blood pressure was reviewed on 05/16 Blood pressure remains reasonably well controlled. Will monitor closely. (10) Asthma: Code(s): J45.909 - Unspecified asthma, uncomplicated Status: Acute Assessment and Plan: Patient was complaining of dry cough and wheezing. He states he has a history of asthma and takes inhaler p.r.n. Patient started on bronchodilators. Symptoms better. Will de-escalate nebs. Follow (11) Anemia: Code(s): D64.9 - Anemia, unspecified Status: Acute Assessment and Plan: Hgb was 10.8 on admission but quickly dropped to 8-9 range. B12/folate normal. Iron studies consistent with chronic disease Possibly related to his renal disease. He was also on Xarelto on admission Hgb dropped to 7 range post surgey but remaining stable. Follow and transfuse as needed. (12) S/P BKA (below knee amputation): Code(s): Z89.519 - Acquired absence of unspecified leg below knee Status: Acute Assessment and Plan: As above Plan DVT prophylaxis: SCDs Code Status: Do not resuscitate Subjective Date/time seen: 05/16/24 10:04 Interval history: 63yo male with CHF, Parkinson, HTN, AFlutter on Xarelto, CAD here after being found down. Called to the room after patient had seizure like activity and worsening left sided weakness. Patient is essentially nonverbal. Patient was in the middle of talking with RN when he began to have witnessed tremors/contractures to the left side of face and left upper body/arm. Left lower extremity or right side was not affected. He attempted to speak but could not speak words clearly. He has a Mckeon in place. Symptoms resolved quickly and did not require medications. BP elevated after event Review of Systems Review of Systems: ROS unobtainable: Yes unobtainable due to mental status Exam Narrative: AF 98.4 147/77 80 20 92% RA Gen - NARD Chest - clear anteriorly. CV - RRR S1/S2 Abd - Soft, NT/ND, Positive BS - Mckeon secured with clear yellow urine in bag Ext - Left foot dressing clean and dry. No left pedal edema. Right BKA dressing clean and dry. Neuro - awake and alert. regards examiner and follows commands. Left dorsi and plantar flexion 4/5. Flaccid left UE but some improvement over time with 2/5 forward elevation. Thick left facial droop. Psych - normal mood Skin - Warm and dry. chronic venous stasis skin changes LLE Objective Data Vital Signs Vital Signs: Vital Signs - 24 hr 05/15/24 13:44 05/15/24 13:44 05/15/24 13:53 Temperature Pulse Rate 80 78 Respiratory Rate 20 20 Blood Pressure Pulse Oximetry 92 Oxygen Delivery Room Air Fraction of Inspired Oxygen 21 05/15/24 15:30 05/15/24 22:08 05/15/24 22:00 Temperature 96.8 F L 97.6 F Pulse Rate 80 80 80 Respiratory Rate 20 20 Blood Pressure 129/75 149/79 H Pulse Oximetry 93 94 Oxygen Delivery Fraction of Inspired Oxygen 05/15/24 20:00 05/16/24 06:00 05/16/24 08:58 Temperature 98.4 F Pulse Rate 80 Respiratory Rate 22 H Blood Pressure 147/77 H Pulse Oximetry 96 92 Oxygen Delivery Room Air Room Air Fraction of Inspired Oxygen 05/16/24 08:58 05/16/24 09:10 Temperature Pulse Rate 80 80 Respiratory Rate 20 20 Blood Pressure Pulse Oximetry Oxygen Delivery Fraction of Inspired Oxygen Intake/Output Intake/Output: Intake & Output 05/13/24 05/14/24 05/15/24 05/16/24 23:59 23:59 23:59 23:59 Intake Total 1310 716 340 100 Output Total 850 1500 800 455 Balance 460 -784 -460 -355 Meds/Results Medications: Active Medications Generic Name Dose Route Start Last Admin Trade Name Freq PRN Reason Stop Dose Admin Acetaminophen 1,000 mg 05/12/24 17:44 Acetaminophen 500 Mg Tablet PO Q6H PRN Mild Pain (1-3) or Fever Hydrocodone Bitart/Acetaminophen 2 tab 05/12/24 17:44 05/15/24 12:24 Hydrocodone/Acetaminophen (*Crx) 5-325 Mg Tablet PO 2 tab Q6H PRN Administration Pain Rated 4-6 Albuterol/Ipratropium 3 ml 05/04/24 01:39 05/08/24 00:02 Ipratropium 0.5 Mg/Albuterol Sulfate 2.5 Mg Ampul.Neb 3 Ml INHALATION 3 ml Q6HRT PRN Administration shortness of breath or wheezing Albuterol/Ipratropium 3 ml 05/15/24 14:00 05/16/24 08:57 Ipratropium 0.5 Mg/Albuterol Sulfate 2.5 Mg Ampul.Neb 3 Ml INHALATION 3 ml [id number] JHOANA Administration Amoxicillin/Clavulanate Potassium 1 tablet 05/13/24 21:00 05/16/24 08:38 Amoxicillin/Clavulanate K 875-125 Mg Tab PO 05/21/24 21:01 1 tablet Q12HR JHOANA Administration Aspirin 325 mg 05/05/24 09:00 05/16/24 08:38 Aspirin 325 Mg Tablet PO 325 mg DAILY@0800 JHOANA Administration Atorvastatin Calcium 40 mg 05/04/24 09:00 05/16/24 08:38 Atorvastatin 40 Mg Tablet PO 40 mg DAILY JHOANA Administration Carvedilol 6.25 mg 05/15/24 21:00 05/16/24 08:38 Carvedilol 6.25 Mg Tablet PO 6.25 mg Q12HR JHOANA Administration Dextrose 12.5 gm 05/04/24 01:34 Dextrose 50% 25 Gm/50 Ml Syringe IV PUSH PRN PRN Hypoglycemia Protocol Diphenhydramine HCl 12.5 mg 05/04/24 15:08 05/07/24 23:39 Diphenhydramine Hcl Elixir 12.5 Mg/5 Ml Udc PO 12.5 mg Q6H PRN Administration Itching Fentanyl Citrate 25 mcg 05/12/24 16:18 05/12/24 17:10 Fentanyl Citrate Inj (*Crx) 100 Mcg/2 Ml Vial IV PUSH 25 mcg Q2M PRN Administration Pain Folic Acid 1 mg 05/11/24 09:00 05/16/24 08:38 Folic Acid 1 Mg Tablet PO 1 mg DAILY JHOANA Administration Glucagon 1 mg 05/04/24 01:34 Glucagon For Inj 1 Mg Vial IM PRN PRN Hypoglycemia Protocol Glucose 15 gm 05/04/24 01:34 Glucose Oral Gel 15 Gm Of Glucse In 37.5 Gm Tube PO PRN PRN Hypoglycemia Protocol Guaifenesin/Dextromethorphan 10 ml 05/05/24 08:37 05/14/24 20:20 Guaifenesin/Dextromethorphan 10 Ml Udc PO 10 ml Q4H PRN Administration Cough Hydromorphone HCl 1 mg 05/12/24 17:44 05/15/24 22:02 Hydromorphone Hcl Inj (*Crx) 1 Mg/Ml Syr IV PUSH 1 mg Q3H PRN Administration Pain Rated 7-10 Dextrose 1,000 mls @ 100 mls/hr 05/04/24 01:34 Dextrose 5% 1,000 Ml IVPB PRN PRN Hypoglycemia Protocol Insulin Aspart 3 - 6 units 05/08/24 08:00 05/16/24 08:29 Insulin Aspart (*Bkc) 100 Units/Ml SUB-Q Not Given TIDWM JHOANA Protocol Insulin Aspart 8 units 05/09/24 17:00 05/16/24 08:39 Insulin Aspart (*Bkc) 100 Units/Ml SUB-Q 8 units TIDWM JHOANA Administration Insulin Glargine 24 units 05/14/24 21:00 05/15/24 22:01 Insulin Glargine (*Bkc) 100 Units/Ml SUB-Q 24 units HS JHOANA Administration Loratadine 10 mg 05/04/24 08:51 05/04/24 11:45 Loratadine 10 Mg Tablet PO 10 mg QAM PRN Administration itching Montelukast Sodium 10 mg 05/10/24 21:00 05/15/24 22:03 Montelukast Sodium 10 Mg Tablet PO 10 mg HS JHOANA Administration Multi-Ingred Cream/Lotion/Oil/Oint 1 applic 05/13/24 11:45 05/16/24 08:38 Eucerin Cream 120 Gm Jar TOPICAL 1 applic DAILY JHOANA Administration Ondansetron HCl 4 mg 05/03/24 23:51 Ondansetron Inj 4 Mg/2 Ml Vial IV PUSH Q4H PRN Nausea Oxycodone HCl 5 mg 05/12/24 17:44 05/15/24 03:31 Oxycodone Hcl (*Crx) 5 Mg Tab Ir PO 5 mg Q4H PRN Administration Pain Rated 7-10 Pantoprazole Sodium 40 mg 05/14/24 09:00 05/16/24 08:38 Pantoprazole 40 Mg Tablet PO 40 mg QAM JHOANA Administration Tamsulosin HCl 0.4 mg 05/10/24 21:00 05/15/24 22:03 Tamsulosin Hcl 0.4 Mg Capsule PO 0.4 mg QHS JHOANA Administration Valsartan 40 mg 05/16/24 09:00 05/16/24 08:38 Valsartan 40 Mg Tablet PO 40 mg DAILY JHOANA Administration Radiology Results: ITS Impressions Head CT 05/03/24 20:56 IMPRESSION: Acute infarct involving a portion of the right MCA territory. Results reported telephonically to Dr. Duong by Dr. Langford at 9:01 PM on 05/03/2024. Cervical Spine CT 05/03/24 21:01 IMPRESSION: No acute fracture or traumatic malalignment in the cervical spine. Abdomen/Pelvis CT 05/03/24 21:06 IMPRESSION: No acute abdominopelvic process detected. Foot X-Ray 05/04/24 07:08 IMPRESSION: 1. Soft tissue gas in the plantar aspect of the heel. No evidence of osteomyelitis. Carotid Doppler Study 05/04/24 14:15 IMPRESSION: 1. <50% stenosis in the right internal carotid artery. 2. <50% stenosis in the left internal carotid artery. Renal Ultrasound 05/04/24 14:16 IMPRESSION: No definite abnormality. Ankle Brachial Index 05/08/24 06:55 IMPRESSION: 1. Decreased TBIs and normal ABIs, consistent with arterial occlusive disease. Note that ABIs may be overestimated if arteries are calcified. Chest X-Ray 05/09/24 13:15 IMPRESSION: 1. Mild atelectasis in right lower lung zone. Labs Labs: Laboratory Results - last 24 hr 05/15/24 05/15/24 05/15/24 11:51 17:08 21:12 WBC RBC Hgb Hct MCV MCH MCHC RDW Plt Count MPV Immature Gran % (Auto) Neut % (Auto) Lymph % (Auto) Hemphill % (Auto) Eos % (Auto) Baso % (Auto) Lymph # (Auto) [place]ill # (Auto) Eos # (Auto) Baso # (Auto) Abs Immat Gran (auto) Absolute Neuts (auto) Absolute Nucleated RBC Nucleated RBC % Sodium Potassium Chloride Carbon Dioxide Anion Gap BUN Creatinine Estim Creat Clear Calc Estimated GFR Glucose POC Capillary Glucose 179 H 149 H 175 H Calcium Phosphorus Magnesium Total Bilirubin AST ALT Alkaline Phosphatase Total Protein Albumin 05/16/24 05/16/24 06:35 07:20 WBC 13.1 H RBC 2.32 L Hgb 7.3 L Hct 24.2 L MCV 104.3 H MCH 31.5 MCHC 30.2 L RDW 15.7 H Plt Count 268 MPV 10.2 Immature Gran % (Auto) 1.1 H Neut % (Auto) 79.4 H Lymph % (Auto) 10.0 L [place] % (Auto) 7.0 Eos % (Auto) 2.0 Baso % (Auto) 0.5 Lymph # (Auto) 1.31 [place]phill # (Auto) 0.9 H Eos # (Auto) 0.3 Baso # (Auto) 0.1 Abs Immat Gran (auto) 0.15 H Absolute Neuts (auto) 10.4 H Absolute Nucleated RBC 0.000 Nucleated RBC % 0.0 Sodium 135 L Potassium 4.2 Chloride 104 Carbon Dioxide 29 Anion Gap 2 L BUN 19 Creatinine 1.20 Estim Creat Clear Calc 80 Estimated GFR > 60 Glucose 166 H POC Capillary Glucose 152 H Calcium 8.4 Phosphorus 2.7 Magnesium 1.5 L Total Bilirubin 1.0 AST 40 ALT 31 Alkaline Phosphatase 124 Total Protein 7.0 Albumin 2.8 L
--- NOTE | 2024-05-16 10:32 | ECG_ITS ---
Test Date: 2024-05-16 10:40:20 Measurements Intervals Bradley Rate: 80 P: 38 SD: 216 QRS: -58 QRSD: 178 T: 140 QT: 459 QTc: 530 Interpretive Statements ELECTRONIC ATRIAL PACEMAKER ELECTRONIC VENTRICULAR PACEMAKER ABNORMAL RHYTHM ECG Compared to ECG 05/03/2024 23:10:45 No significant changes Electronically Signed On 05-16-2024 12:56:42 ENTRY CLERK by Byron Ta M.D.
--- NOTE | 2024-05-16 10:35 | PCOTNOTE ---
Patient having a discussions and testing done with MD at this time. Patient c/o chest pain. Will check back at a later time.
[2024-05-16] MEDS: levETIRAcetam 1000MG/NACL100ML 1,000 MG/100 ML BAG 400 MG IVPB (11:01)
[2024-05-16 11:21] LABS: Troponin I 0.017 ng/mL (0.000-0.034)
[2024-05-16 11:22] LABS: Glucose Point of Care 170 mg/dl (65-105)
--- NOTE | 2024-05-16 12:12 | P.PNGS_ITS ---
Progress Note: A&P Assessment and Plan (1) S/P BKA (below knee amputation): Code(s): Z89.519 - Acquired absence of unspecified leg below knee Status: Acute Assessment and Plan: * Postop day 4 following right BKA. His incision his healing well and flap appears healthy. VIRI drain with minimal output. Will likely remove the VIRI drain later today or tomorrow. * Continue local wound care with gauze dressing changes and cover with mary kay wrap. * He had a posterior plaster splint initially in place after surgery that is no longer at the bedside. We will either have another splint made or order a knee immobilizer to keep his right knee extended and prevent flexion contracture of the right knee. * Keep the right lower extremity elevated on pillows. (2) Seizure: Code(s): R56.9 - Unspecified convulsions Status: Acute Assessment and Plan: * New possible seizure activity this morning. He is having further workup to rule out acute stroke. 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 * Okay to resume anticoagulation from a surgical standpoint. I discussed this with the Hospitalist. (4) Right-sided cerebrovascular accident (CVA): Code(s): I63.9 - Cerebral infarction, unspecified Status: Acute Plan I have discussed the patient's case and plan of care with Dr. Ta. Subjective Subjective Date/Time Seen: 05/16/24 10:12 Interval history: Nursing at the bedside during my exam. This morning when working with physical therapy, the patient had an episode of muscle twitching, tongue deviation, facial droop, and slurred speech. Code stroke was called. There was concern of seizure activity vs CVA. He had a CTA head/neck. He is currently on 325 mg daily aspirin. His Xarelto has not yet been restarted with his recent surgery. Exam Const: General: comfortable and no acute distress Orientation/consciousness: patient oriented x3 Neuro: Speech: Abnormal speech present slurred Gait exam (Neuro): Unable to assess gait Extrem: Other: Right BKA dressing removed and incision has sutures intact and skin edges well approximated with no drainage. Flap appears viable and healthy without any skin changes. Some mild diffuse swelling that is expected. Objective Data Vital Signs Vital Signs: Vital Signs - 24 hr 05/15/24 13:44 05/15/24 13:44 05/15/24 13:53 Temperature Pulse Rate 80 78 Respiratory Rate 20 20 Blood Pressure Pulse Oximetry 92 Oxygen Delivery Room Air Fraction of Inspired Oxygen 21 05/15/24 15:30 05/15/24 22:08 05/15/24 22:00 Temperature 96.8 F L 97.6 F Pulse Rate 80 80 80 Respiratory Rate 20 20 Blood Pressure 129/75 149/79 H Pulse Oximetry 93 94 Oxygen Delivery Fraction of Inspired Oxygen 05/15/24 20:00 05/16/24 06:00 05/16/24 08:58 Temperature 98.4 F Pulse Rate 80 Respiratory Rate 22 H Blood Pressure 147/77 H Pulse Oximetry 96 92 Oxygen Delivery Room Air Room Air Fraction of Inspired Oxygen 05/16/24 08:58 05/16/24 09:10 05/16/24 10:00 Temperature 96.8 F L Pulse Rate 80 80 80 Respiratory Rate 20 20 Blood Pressure 180/110 H Pulse Oximetry 98 Oxygen Delivery Fraction of Inspired Oxygen 05/16/24 10:31 05/16/24 10:40 Temperature 97.8 F Pulse Rate 79 Respiratory Rate 24 H Blood Pressure 139/99 H 138/78 Pulse Oximetry 100 Oxygen Delivery Fraction of Inspired Oxygen Intake/Output Intake/Output: Intake & Output 05/13/24 05/14/24 05/15/24 05/16/24 23:59 23:59 23:59 23:59 Intake Total 1310 716 340 340 Output Total 850 1500 800 455 Balance 460 -784 -460 -115 Meds/Results Medications: Active Medications Generic Name Dose Route Start Last Admin Trade Name Freq PRN Reason Stop Dose Admin Acetaminophen 1,000 mg 05/12/24 17:44 Acetaminophen 500 Mg Tablet PO Q6H PRN Mild Pain (1-3) or Fever Hydrocodone Bitart/Acetaminophen 2 tab 05/12/24 17:44 05/15/24 12:24 Hydrocodone/Acetaminophen (*Crx) 5-325 Mg Tablet PO 2 tab Q6H PRN Administration Pain Rated 4-6 Albuterol/Ipratropium 3 ml 05/04/24 01:39 05/08/24 00:02 Ipratropium 0.5 Mg/Albuterol Sulfate 2.5 Mg Ampul.Neb 3 Ml INHALATION 3 ml Q6HRT PRN Administration shortness of breath or wheezing Albuterol/Ipratropium 3 ml 05/15/24 14:00 05/16/24 08:57 Ipratropium 0.5 Mg/Albuterol Sulfate 2.5 Mg Ampul.Neb 3 Ml INHALATION 3 ml [id number] JHOANA Administration Amoxicillin/Clavulanate Potassium 1 tablet 05/13/24 21:00 05/16/24 08:38 Amoxicillin/Clavulanate K 875-125 Mg Tab PO 05/21/24 21:01 1 tablet Q12HR JHOANA Administration Aspirin 325 mg 05/05/24 09:00 05/16/24 08:38 Aspirin 325 Mg Tablet PO 325 mg DAILY@0800 JHOANA Administration Atorvastatin Calcium 40 mg 05/04/24 09:00 05/16/24 08:38 Atorvastatin 40 Mg Tablet PO 40 mg DAILY JHOANA Administration Carvedilol 6.25 mg 05/15/24 21:00 05/16/24 08:38 Carvedilol 6.25 Mg Tablet PO 6.25 mg Q12HR JHOANA Administration Dextrose 12.5 gm 05/04/24 01:34 Dextrose 50% 25 Gm/50 Ml Syringe IV PUSH PRN PRN Hypoglycemia Protocol Diphenhydramine HCl 12.5 mg 05/04/24 15:08 05/07/24 23:39 Diphenhydramine Hcl Elixir 12.5 Mg/5 Ml Udc PO 12.5 mg Q6H PRN Administration Itching Fentanyl Citrate 25 mcg 05/12/24 16:18 05/12/24 17:10 Fentanyl Citrate Inj (*Crx) 100 Mcg/2 Ml Vial IV PUSH 25 mcg Q2M PRN Administration Pain Folic Acid 1 mg 05/11/24 09:00 05/16/24 08:38 Folic Acid 1 Mg Tablet PO 1 mg DAILY JHOANA Administration Glucagon 1 mg 05/04/24 01:34 Glucagon For Inj 1 Mg Vial IM PRN PRN Hypoglycemia Protocol Glucose 15 gm 05/04/24 01:34 Glucose Oral Gel 15 Gm Of Glucse In 37.5 Gm Tube PO PRN PRN Hypoglycemia Protocol Guaifenesin/Dextromethorphan 10 ml 05/05/24 08:37 05/14/24 20:20 Guaifenesin/Dextromethorphan 10 Ml Udc PO 10 ml Q4H PRN Administration Cough Hydromorphone HCl 1 mg 05/12/24 17:44 05/15/24 22:02 Hydromorphone Hcl Inj (*Crx) 1 Mg/Ml Syr IV PUSH 1 mg Q3H PRN Administration Pain Rated 7-10 Dextrose 1,000 mls @ 100 mls/hr 05/04/24 01:34 Dextrose 5% 1,000 Ml IVPB PRN PRN Hypoglycemia Protocol Levetiracetam 500 mg in 100 mls @ 400 mls/hr 05/16/24 21:00 Keppra Iv IVPB Q12HR JHOANA Insulin Aspart 3 - 6 units 05/08/24 08:00 05/16/24 11:33 Insulin Aspart (*Bkc) 100 Units/Ml SUB-Q Not Given TIDWM JHOANA Protocol Insulin Aspart 8 units 05/09/24 17:00 05/16/24 08:39 Insulin Aspart (*Bkc) 100 Units/Ml SUB-Q 8 units TIDWM JHOANA Administration Insulin Glargine 24 units 05/14/24 21:00 05/15/24 22:01 Insulin Glargine (*Bkc) 100 Units/Ml SUB-Q 24 units HS JHOANA Administration Loratadine 10 mg 05/04/24 08:51 05/04/24 11:45 Loratadine 10 Mg Tablet PO 10 mg QAM PRN Administration itching Lorazepam 1 mg 05/16/24 10:40 Lorazepam Inj (*Crx) 2 Mg/Ml Vial IV PUSH Q6H PRN seizure like activity Montelukast Sodium 10 mg 05/10/24 21:00 05/15/24 22:03 Montelukast Sodium 10 Mg Tablet PO 10 mg HS JHOANA Administration Multi-Ingred Cream/Lotion/Oil/Oint 1 applic 05/13/24 11:45 05/16/24 08:38 Eucerin Cream 120 Gm Jar TOPICAL 1 applic DAILY JHOANA Administration Ondansetron HCl 4 mg 05/03/24 23:51 Ondansetron Inj 4 Mg/2 Ml Vial IV PUSH Q4H PRN Nausea Oxycodone HCl 5 mg 05/12/24 17:44 05/15/24 03:31 Oxycodone Hcl (*Crx) 5 Mg Tab Ir PO 5 mg Q4H PRN Administration Pain Rated 7-10 Pantoprazole Sodium 40 mg 05/14/24 09:00 05/16/24 08:38 Pantoprazole 40 Mg Tablet PO 40 mg QAM JHOANA Administration Tamsulosin HCl 0.4 mg 05/10/24 21:00 05/15/24 22:03 Tamsulosin Hcl 0.4 Mg Capsule PO 0.4 mg QHS JHOANA Administration Valsartan 40 mg 05/16/24 09:00 05/16/24 08:38 Valsartan 40 Mg Tablet PO 40 mg DAILY JHOANA Administration Radiology Results: ITS Impressions Cervical Spine CT 05/03/24 21:01 IMPRESSION: No acute fracture or traumatic malalignment in the cervical spine. Abdomen/Pelvis CT 05/03/24 21:06 IMPRESSION: No acute abdominopelvic process detected. Foot X-Ray 05/04/24 07:08 IMPRESSION: 1. Soft tissue gas in the plantar aspect of the heel. No evidence of osteomyelitis. Carotid Doppler Study 05/04/24 14:15 IMPRESSION: 1. <50% stenosis in the right internal carotid artery. 2. <50% stenosis in the left internal carotid artery. Renal Ultrasound 05/04/24 14:16 IMPRESSION: No definite abnormality. Ankle Brachial Index 05/08/24 06:55 IMPRESSION: 1. Decreased TBIs and normal ABIs, consistent with arterial occlusive disease. Note that ABIs may be overestimated if arteries are calcified. Chest X-Ray 05/09/24 13:15 IMPRESSION: 1. Mild atelectasis in right lower lung zone. Head CT 05/16/24 10:20 IMPRESSION: 1. 10% stenosis of the right carotid bulb relative to normal distal artery lumen diameter (NASCET criteria). 2. 10% stenosis of the left carotid bulb relative to normal distal artery lumen diameter. 3. Interval evolution and increased extent of a moderate-sized subacute infarct in the posterior right frontal lobe now extending medially to the falx. There are a few likely tiny thrombosed vessel centrally within the region of infarcted with surrounding peripheral luxury perfusion on the CT angiogram. 4. No interval change in additional smaller likely subacute infarct in the right parieto-occipital region and small chronic infarct in the inferior right occipital lobe. 5. Extensive nonhemodynamically significant calcified atherosclerotic plaque along the bilateral carotid siphons. No thrombosis, hemodynamically significant stenosis or aneurysm in the more central cerebral arteries including through at least the right M2 segments supplying the region of the right frontal lobe infarct. Head/Neck CTA 05/16/24 10:20 IMPRESSION: 1. 10% stenosis of the right carotid bulb relative to normal distal artery lumen diameter (NASCET criteria). 2. 10% stenosis of the left carotid bulb relative to normal distal artery lumen diameter. 3. Interval evolution and increased extent of a moderate-sized subacute infarct in the posterior right frontal lobe now extending medially to the falx. There are a few likely tiny thrombosed vessel centrally within the region of infarcted with surrounding peripheral luxury perfusion on the CT angiogram. 4. No interval change in additional smaller likely subacute infarct in the right parieto-occipital region and small chronic infarct in the inferior right occipital lobe. 5. Extensive nonhemodynamically significant calcified atherosclerotic plaque along the bilateral carotid siphons. No thrombosis, hemodynamically significant stenosis or aneurysm in the more central cerebral arteries including through at least the right M2 segments supplying the region of the right frontal lobe infarct. Labs Labs: Laboratory Results - last 24 hr 05/15/24 05/15/24 05/16/24 17:08 21:12 06:35 WBC 13.1 H RBC 2.32 L Hgb 7.3 L Hct 24.2 L MCV 104.3 H MCH 31.5 MCHC 30.2 L RDW 15.7 H Plt Count 268 MPV 10.2 Immature Gran % (Auto) 1.1 H Neut % (Auto) 79.4 H Lymph % (Auto) 10.0 L Stanton % (Auto) 7.0 Eos % (Auto) 2.0 Baso % (Auto) 0.5 Lymph # (Auto) 1.31 Stanton # (Auto) 0.9 H Eos # (Auto) 0.3 Baso # (Auto) 0.1 Abs Immat Gran (auto) 0.15 H Absolute Neuts (auto) 10.4 H Absolute Nucleated RBC 0.000 Nucleated RBC % 0.0 Sodium 135 L Potassium 4.2 Chloride 104 Carbon Dioxide 29 Anion Gap 2 L BUN 19 Creatinine 1.20 Estim Creat Clear Calc 80 Estimated GFR > 60 Glucose 166 H POC Capillary Glucose 149 H 175 H Calcium 8.4 Phosphorus 2.7 Magnesium 1.5 L Total Bilirubin 1.0 AST 40 ALT 31 Alkaline Phosphatase 124 Troponin I Total Protein 7.0 Albumin 2.8 L 05/16/24 05/16/24 05/16/24 07:20 10:54 11:06 WBC RBC Hgb Hct MCV MCH MCHC RDW Plt Count MPV Immature Gran % (Auto) Neut % (Auto) Lymph % (Auto) Stanton % (Auto) Eos % (Auto) Baso % (Auto) Lymph # (Auto) Stanton # (Auto) Eos # (Auto) Baso # (Auto) Abs Immat Gran (auto) Absolute Neuts (auto) Absolute Nucleated RBC Nucleated RBC % Sodium Potassium Chloride Carbon Dioxide Anion Gap BUN Creatinine Estim Creat Clear Calc Estimated GFR Glucose POC Capillary Glucose 152 H 170 H Calcium Phosphorus Magnesium Total Bilirubin AST ALT Alkaline Phosphatase Troponin I 0.017 Total Protein Albumin
--- NOTE | 2024-05-16 14:15 | PCOTNOTE ---
RN checked in with MD for therapy services this afternoon. Per MD, hold off for today, try back tomorrow.
[2024-05-16 14:42] LABS: Troponin I 0.015 ng/mL (0.000-0.034)
--- NOTE | 2024-05-16 16:24 | PC.NURSE ---
At approximately 0955, PT called out to this RN stating the patient is having a seizure. Upon arriving to the bedside, this RN observed the patient's arm and head shaking. The patient attempted to respond to questions when asked. Vitals were obtained (see documentation) and Dr. Rubio was called into the room from the nurses' station. After approximately 1-2 minutes of seizure like activity, the patient stopped shaking. Upon further assessment, it was noted that the patient had a left sided facial droop as well as garbled speech. Dr. Rubio gave orders for a STAT head/neck CTA and this RN transported the patient to CT immediately.
[2024-05-16 16:31] LABS: Glucose Point of Care 146 mg/dl (65-105)
--- NOTE | 2024-05-16 16:38 | PCSTNOTE ---
Please refer to the Bedside Swallow Evaluation in the EMR. Please note, silent aspiration cannot be ruled out at bedside.
[2024-05-16 17:27] LABS: Troponin I 0.019 ng/mL (0.000-0.034)
--- NOTE | 2024-05-16 18:52 | WPDNEUROPN ---
Progress Note: A&P Assessment and Plan (1) Seizure: Code(s): R56.9 - Unspecified convulsions Status: Acute Assessment and Plan: this would be considered a new onset seizure disorder. He does have history of recent stroke on the right side of the brain in the middle cerebral artery distribution. Seizures can sometimes complicate cerebral infarction. Given the multiple full medical problems this gentleman faces I would be in agreement with keeping a anticonvulsants at this time. I would suggest Keppra since 750 mg twice a day for now. It kept on seizure precautions and if he has any further seizures I shall be glad to address them. (2) Right-sided cerebrovascular accident (CVA): Code(s): I63.9 - Cerebral infarction, unspecified Status: Acute Assessment and Plan: The patient has a residual left hemiparesis. (3) S/P BKA (below knee amputation): Code(s): Z89.519 - Acquired absence of unspecified leg below knee Status: Acute (4) Chronic atrial fibrillation: Code(s): I48.20 - Chronic atrial fibrillation, unspecified Status: Acute (5) Parkinsons disease: Code(s): G20 - Parkinson's disease Status: Acute (6) Type 2 diabetes mellitus: Code(s): E11.9 - Type 2 diabetes mellitus without complications Status: Acute (7) Acute kidney injury: Code(s): N17.9 - Acute kidney failure, unspecified Status: Acute (8) Acute CVA (cerebrovascular accident): Code(s): I63.9 - Cerebral infarction, unspecified Status: Acute Subjective Date/time seen: 05/16/24 18:52 Interval history: 63-year-old was re-evaluated in view of the onset of seizures this morning. No history of prior seizures. He has history of right CVA with left hemiparesis. There is also history of Parkinson disease and diabetes mellitus and atrial fibrillation a he was initially found to be septic with a white cell count of 30,000. CT scan of brain shown a right middle cerebral artery infarct. His creatinine was also high at 3.5. Patient has a pacemaker in place he has a right below-knee amputation. Review of Systems Review of Systems: All systems reviewed & are unremarkable except as noted in HPI and below Exam Narrative: Fully conscious alert oriented to self time place and person. There is no aphasia or dysarthria however he has mild left facial weakness. Left upper limb power grade 2/5 left lower limb power grade 4/5. Involuntary movements were seen. Sensory is grossly intact. Deep tendon face reflexes were slightly brisk on the left than right Side. Objective Data Vital Signs Vital Signs: Vital Signs - 24 hr 05/15/24 22:08 05/15/24 22:00 05/15/24 20:00 Temperature 97.6 F Pulse Rate 80 80 Respiratory Rate 20 Blood Pressure 149/79 H Pulse Oximetry 94 Oxygen Delivery Room Air 05/16/24 06:00 05/16/24 08:58 05/16/24 08:58 Temperature 98.4 F Pulse Rate 80 80 Respiratory Rate 22 H 20 Blood Pressure 147/77 H Pulse Oximetry 96 92 Oxygen Delivery Room Air 05/16/24 09:10 05/16/24 10:00 05/16/24 10:31 Temperature 96.8 F L 97.8 F Pulse Rate 80 80 79 Respiratory Rate 20 24 H Blood Pressure 180/110 H 139/99 H Pulse Oximetry 98 100 Oxygen Delivery 05/16/24 10:40 05/16/24 14:08 05/16/24 14:08 Temperature Pulse Rate 80 Respiratory Rate 20 Blood Pressure 138/78 Pulse Oximetry 92 Oxygen Delivery Room Air 05/16/24 14:16 05/16/24 14:00 Temperature 96.5 F L Pulse Rate 80 79 Respiratory Rate 20 20 Blood Pressure 144/81 H Pulse Oximetry 94 Oxygen Delivery Intake/Output Intake/Output: Intake & Output 05/13/24 05/14/24 05/15/24 05/16/24 23:59 23:59 23:59 23:59 Intake Total 1310 716 340 340 Output Total 850 5697 243 0760 Balance 460 -784 -460 -865 Meds/Results Medications: Active Medications Generic Name Dose Route Start Last Admin Trade Name Freq PRN Reason Stop Dose Admin Acetaminophen 1,000 mg 05/12/24 17:44 Acetaminophen 500 Mg Tablet PO Q6H PRN Mild Pain (1-3) or Fever Hydrocodone Bitart/Acetaminophen 2 tab 05/12/24 17:44 05/15/24 12:24 Hydrocodone/Acetaminophen (*Crx) 5-325 Mg Tablet PO 2 tab Q6H PRN Administration Pain Rated 4-6 Albuterol/Ipratropium 3 ml 05/04/24 01:39 05/08/24 00:02 Ipratropium 0.5 Mg/Albuterol Sulfate 2.5 Mg Ampul.Neb 3 Ml INHALATION 3 ml Q6HRT PRN Administration shortness of breath or wheezing Albuterol/Ipratropium 3 ml 05/15/24 14:00 05/16/24 14:07 Ipratropium 0.5 Mg/Albuterol Sulfate 2.5 Mg Ampul.Neb 3 Ml INHALATION 3 ml [id number] JHOANA Administration Amoxicillin/Clavulanate Potassium 1 tablet 05/13/24 21:00 05/16/24 08:38 Amoxicillin/Clavulanate K 875-125 Mg Tab PO 05/21/24 21:01 1 tablet Q12HR JHOANA Administration Aspirin 325 mg 05/05/24 09:00 05/16/24 08:38 Aspirin 325 Mg Tablet PO 325 mg DAILY@0800 JHOANA Administration Atorvastatin Calcium 40 mg 05/04/24 09:00 05/16/24 08:38 Atorvastatin 40 Mg Tablet PO 40 mg DAILY JHOANA Administration Carvedilol 6.25 mg 05/15/24 21:00 05/16/24 08:38 Carvedilol 6.25 Mg Tablet PO 6.25 mg Q12HR JHOANA Administration Dextrose 12.5 gm 05/04/24 01:34 Dextrose 50% 25 Gm/50 Ml Syringe IV PUSH PRN PRN Hypoglycemia Protocol Diphenhydramine HCl 12.5 mg 05/04/24 15:08 05/07/24 23:39 Diphenhydramine Hcl Elixir 12.5 Mg/5 Ml Udc PO 12.5 mg Q6H PRN Administration Itching Fentanyl Citrate 25 mcg 05/12/24 16:18 05/12/24 17:10 Fentanyl Citrate Inj (*Crx) 100 Mcg/2 Ml Vial IV PUSH 25 mcg Q2M PRN Administration Pain Folic Acid 1 mg 05/11/24 09:00 05/16/24 08:38 Folic Acid 1 Mg Tablet PO 1 mg DAILY JHOANA Administration Glucagon 1 mg 05/04/24 01:34 Glucagon For Inj 1 Mg Vial IM PRN PRN Hypoglycemia Protocol Glucose 15 gm 05/04/24 01:34 Glucose Oral Gel 15 Gm Of Glucse In 37.5 Gm Tube PO PRN PRN Hypoglycemia Protocol Guaifenesin/Dextromethorphan 10 ml 05/05/24 08:37 05/14/24 20:20 Guaifenesin/Dextromethorphan 10 Ml Udc PO 10 ml Q4H PRN Administration Cough Hydromorphone HCl 1 mg 05/12/24 17:44 05/15/24 22:02 Hydromorphone Hcl Inj (*Crx) 1 Mg/Ml Syr IV PUSH 1 mg Q3H PRN Administration Pain Rated 7-10 Dextrose 1,000 mls @ 100 mls/hr 05/04/24 01:34 Dextrose 5% 1,000 Ml IVPB PRN PRN Hypoglycemia Protocol Levetiracetam 500 mg in 100 mls @ 400 mls/hr 05/16/24 21:00 Keppra Iv IVPB Q12HR JHOANA Insulin Aspart 3 - 6 units 05/08/24 08:00 05/16/24 16:37 Insulin Aspart (*Bkc) 100 Units/Ml SUB-Q Not Given TIDWM [facility] Protocol Insulin Aspart 8 units 05/09/24 17:00 05/16/24 08:39 Insulin Aspart (*Bkc) 100 Units/Ml SUB-Q 8 units TIDWM JHOANA Administration Insulin Glargine 24 units 05/14/24 21:00 05/15/24 22:01 Insulin Glargine (*Bkc) 100 Units/Ml SUB-Q 24 units HS JHOANA Administration Loratadine 10 mg 05/04/24 08:51 05/04/24 11:45 Loratadine 10 Mg Tablet PO 10 mg QAM PRN Administration itching Lorazepam 1 mg 05/16/24 10:40 Lorazepam Inj (*Crx) 2 Mg/Ml Vial IV PUSH Q6H PRN seizure like activity Montelukast Sodium 10 mg 05/10/24 21:00 05/15/24 22:03 Montelukast Sodium 10 Mg Tablet PO 10 mg HS JHOANA Administration Multi-Ingred Cream/Lotion/Oil/Oint 1 applic 05/13/24 11:45 05/16/24 08:38 Eucerin Cream 120 Gm Jar TOPICAL 1 applic DAILY JHOANA Administration Ondansetron HCl 4 mg 05/03/24 23:51 Ondansetron Inj 4 Mg/2 Ml Vial IV PUSH Q4H PRN Nausea Oxycodone HCl 5 mg 05/12/24 17:44 05/15/24 03:31 Oxycodone Hcl (*Crx) 5 Mg Tab Ir PO 5 mg Q4H PRN Administration Pain Rated 7-10 Pantoprazole Sodium 40 mg 05/14/24 09:00 05/16/24 08:38 Pantoprazole 40 Mg Tablet PO 40 mg QAM JHOANA Administration Tamsulosin HCl 0.4 mg 05/10/24 21:00 05/15/24 22:03 Tamsulosin Hcl 0.4 Mg Capsule PO 0.4 mg QHS JHOANA Administration Valsartan 40 mg 05/16/24 09:00 05/16/24 08:38 Valsartan 40 Mg Tablet PO 40 mg DAILY JHOANA Administration Radiology Results: ITS Impressions Cervical Spine CT 05/03/24 21:01 IMPRESSION: No acute fracture or traumatic malalignment in the cervical spine. Abdomen/Pelvis CT 05/03/24 21:06 IMPRESSION: No acute abdominopelvic process detected. Foot X-Ray 05/04/24 07:08 IMPRESSION: 1. Soft tissue gas in the plantar aspect of the heel. No evidence of osteomyelitis. Carotid Doppler Study 05/04/24 14:15 IMPRESSION: 1. <50% stenosis in the right internal carotid artery. 2. <50% stenosis in the left internal carotid artery. Renal Ultrasound 05/04/24 14:16 IMPRESSION: No definite abnormality. Ankle Brachial Index 05/08/24 06:55 IMPRESSION: 1. Decreased TBIs and normal ABIs, consistent with arterial occlusive disease. Note that ABIs may be overestimated if arteries are calcified. Chest X-Ray 05/09/24 13:15 IMPRESSION: 1. Mild atelectasis in right lower lung zone. Head CT 05/16/24 10:20 IMPRESSION: 1. 10% stenosis of the right carotid bulb relative to normal distal artery lumen diameter (NASCET criteria). 2. 10% stenosis of the left carotid bulb relative to normal distal artery lumen diameter. 3. Interval evolution and increased extent of a moderate-sized subacute infarct in the posterior right frontal lobe now extending medially to the falx. There are a few likely tiny thrombosed vessel centrally within the region of infarcted with surrounding peripheral luxury perfusion on the CT angiogram. 4. No interval change in additional smaller likely subacute infarct in the right parieto-occipital region and small chronic infarct in the inferior right occipital lobe. 5. Extensive nonhemodynamically significant calcified atherosclerotic plaque along the bilateral carotid siphons. No thrombosis, hemodynamically significant stenosis or aneurysm in the more central cerebral arteries including through at least the right M2 segments supplying the region of the right frontal lobe infarct. Head/Neck CTA 05/16/24 10:20 IMPRESSION: 1. 10% stenosis of the right carotid bulb relative to normal distal artery lumen diameter (NASCET criteria). 2. 10% stenosis of the left carotid bulb relative to normal distal artery lumen diameter. 3. Interval evolution and increased extent of a moderate-sized subacute infarct in the posterior right frontal lobe now extending medially to the falx. There are a few likely tiny thrombosed vessel centrally within the region of infarcted with surrounding peripheral luxury perfusion on the CT angiogram. 4. No interval change in additional smaller likely subacute infarct in the right parieto-occipital region and small chronic infarct in the inferior right occipital lobe. 5. Extensive nonhemodynamically significant calcified atherosclerotic plaque along the bilateral carotid siphons. No thrombosis, hemodynamically significant stenosis or aneurysm in the more central cerebral arteries including through at least the right M2 segments supplying the region of the right frontal lobe infarct. Labs Labs: Laboratory Results - last 24 hr 05/15/24 05/16/24 05/16/24 21:12 06:35 07:20 WBC 13.1 H RBC 2.32 L Hgb 7.3 L Hct 24.2 L MCV 104.3 H MCH 31.5 MCHC 30.2 L RDW 15.7 H Plt Count 268 MPV 10.2 Immature Gran % (Auto) 1.1 H Neut % (Auto) 79.4 H Lymph % (Auto) 10.0 L [place] % (Auto) 7.0 Eos % (Auto) 2.0 Baso % (Auto) 0.5 Lymph # (Auto) 1.31 [place] # (Auto) 0.9 H Eos # (Auto) 0.3 Baso # (Auto) 0.1 Abs Immat Gran (auto) 0.15 H Absolute Neuts (auto) 10.4 H Absolute Nucleated RBC 0.000 Nucleated RBC % 0.0 Sodium 135 L Potassium 4.2 Chloride 104 Carbon Dioxide 29 Anion Gap 2 L BUN 19 Creatinine 1.20 Estim Creat Clear Calc 80 Estimated GFR > 60 Glucose 166 H POC Capillary Glucose 175 H 152 H Calcium 8.4 Phosphorus 2.7 Magnesium 1.5 L Total Bilirubin 1.0 AST 40 ALT 31 Alkaline Phosphatase 124 Troponin I Total Protein 7.0 Albumin 2.8 L 05/16/24 05/16/24 05/16/24 10:54 11:06 13:39 WBC RBC Hgb Hct MCV MCH MCHC RDW Plt Count MPV Immature Gran % (Auto) Neut % (Auto) Lymph % (Auto) [place] % (Auto) Eos % (Auto) Baso % (Auto) Lymph # (Auto) [place] # (Auto) Eos # (Auto) Baso # (Auto) Abs Immat Gran (auto) Absolute Neuts (auto) Absolute Nucleated RBC Nucleated RBC % Sodium Potassium Chloride Carbon Dioxide Anion Gap BUN Creatinine Estim Creat Clear Calc Estimated GFR Glucose POC Capillary Glucose 170 H Calcium Phosphorus Magnesium Total Bilirubin AST ALT Alkaline Phosphatase Troponin I 0.017 0.015 Total Protein Albumin 05/16/24 05/16/24 16:23 16:56 WBC RBC Hgb Hct MCV MCH MCHC RDW Plt Count MPV Immature Gran % (Auto) Neut % (Auto) Lymph % (Auto) [place] % (Auto) Eos % (Auto) Baso % (Auto) Lymph # (Auto) [place] # (Auto) Eos # (Auto) Baso # (Auto) Abs Immat Gran (auto) Absolute Neuts (auto) Absolute Nucleated RBC Nucleated RBC % Sodium Potassium Chloride Carbon Dioxide Anion Gap BUN Creatinine Estim Creat Clear Calc Estimated GFR Glucose POC Capillary Glucose 146 H Calcium Phosphorus Magnesium Total Bilirubin AST ALT Alkaline Phosphatase Troponin I 0.019 D Total Protein Albumin
[2024-05-16 20:52] LABS: Glucose Point of Care 127 mg/dl (65-105)
[2024-05-16] MEDS: levETIRAcetam IV 750 MG in DEXTROSE 5% 100 ML 430 MG IVPB (21:08)
[2024-05-16] MEDS: MONTELUKAST SODIUM 10 MG TABLET PO (21:13)
[2024-05-16] MEDS: oxyCODONE HCL (*CRX) 5 MG TAB IR PO (21:14)
[2024-05-16] MEDS: TAMSULOSIN HCL 0.4 MG CAPSULE PO (21:14)
[2024-05-16 23:59] LABS: Glucose Point of Care 125 mg/dl (65-105)
[2024-05-17 06:00] VITALS: BP 129/77; PULSE 80; RESP 24; TEMP 36.9; O2SAT 96
[2024-05-17 06:32] LABS: Glucose Point of Care 147 mg/dl (65-105)
[2024-05-17 07:29] LABS: Basophils Percent Auto 0.4 % (0.2-1.2); Eosinophils Absolute Auto 0.2 K/mm3 (0-0.3); Eosinophils Percent Auto 2.1 % (0-4.4); Hematocrit 24.3 % (42.0-52.0); Hemoglobin 7.6 g/dL (14.0-18.0); Immature Granulocyte Absolute 0.11 K/mm3 (0.00-0.031); Immature Granulocyte Percent A 1.1 % (0-0.5); Lymphocytes Absolute Auto 1.16 K/mm3 (0.9-3.2); Lymphocytes Percent Auto 11.5 % (18.3-44.2); Mean Corpuscular HGB Conc 31.3 g/dl (32-36); Mean Corpuscular Hemoglobin 32.6 pg (26-34); Mean Corpuscular Volume 104.3 fl (80-100); Mean Platelet Volume 10.4 fl (7.4-10.4); Monocytes Absolute Auto 0.7 K/mm3 (0.1-0.6); Monocytes Percent Auto 7.2 % (2.6-8.5); Neutrophils Absolute Auto 7.8 K/mm3 (1.3-6.7); Neutrophils Percent Auto 77.7 % (45.5-73.1); Platelet Count Result 279 k/mm3 (150-375); Red Blood Count 2.33 M/mm3 (4.6-6.20); Red Cell Distribution Width 15.8 % (11.5-14.5); White Blood Count 10.1 K/mm3 (4.5-10.0)
[2024-05-17 07:50] LABS: Albumin Level 2.9 g/dL (3.5-5.1); Anion Gap 1 mmol/L (4-12); Blood Urea Nitrogen 17 mg/dL (9-20); Calcium 8.7 mg/dL (8.4-10.2); Carbon Dioxide 29 mmol/L (22-30); Chloride 105 mmol/L (98-107); Estimated CRCL calculation 87 ml/min; Estimated Glomerular Filt Rate > 60; Glucose 148 mg/dL (65-110); Magnesium 1.5 mg/dL (1.6-2.3); Phosphorus 3.3 mg/dL (2.5-4.5); Potassium 4.2 mmol/L (3.4-5.0); Sodium 135 mmol/L (137-145)
[2024-05-17] MEDS: IPRATROPIUM 0.5 MG/ALBUTEROL SULFATE 2.5 MG AMPUL.NEB 3 ML INHALATION (08:16)
[2024-05-17 08:17] VITALS: PULSE 80; RESP 20; O2SAT 91
[2024-05-17] MEDS: levETIRAcetam IV 750 MG in DEXTROSE 5% 100 ML 430 MG IVPB ×2 (08:42→21:39)
[2024-05-17] MEDS: EUCERIN CREAM 120 GM JAR 1 APPLIC TOPICAL (08:42)
[2024-05-17 10:11] VITALS: PULSE 80
[2024-05-17] MEDS: PANTOPRAZOLE 40 MG TABLET PO (10:11)
[2024-05-17] MEDS: carvediloL 6.25 MG TABLET PO ×2 (10:11→21:34)
[2024-05-17] MEDS: VALSARTAN 40 MG TABLET PO (10:11)
[2024-05-17] MEDS: FOLIC ACID 1 MG TABLET PO (10:11)
[2024-05-17] MEDS: ATORVASTATIN 40 MG TABLET PO (10:11)
[2024-05-17] MEDS: AMOXICILLIN/CLAVULANATE K 875-125 MG TAB 1 TABLET PO ×2 (10:11→21:34)
[2024-05-17] MEDS: ASPIRIN 325 MG TABLET PO (10:11)
[2024-05-17] MEDS: MAGNESIUM SULF 2 GM/WATER 50ML 2 GM/50 ML BAG IVPB (10:12)
[2024-05-17 12:03] LABS: Glucose Point of Care 147 mg/dl (65-105)
[2024-05-17 14:00] VITALS: BP 122/66; PULSE 80; RESP 20; TEMP 35.8; O2SAT 95
[2024-05-17] MEDS: HYDROmorphone HCL INJ (*CRX) 1 MG/ML SYR IV PUSH (14:06)
--- NOTE | 2024-05-17 15:43 | PM.PNGS ---
Progress Note: A&P Assessment and Plan (1) S/P BKA (below knee amputation): Code(s): Z89.519 - Acquired absence of unspecified leg below knee Status: Acute Assessment and Plan: Postop day 5 following right BKA. This is healing well. VIRI drain was removed today. Continue local wound care with gauze dressing changes and cover with mary kay wrap. Keep the right lower extremity elevated on pillows with knee immobilizer in place to prevent flexion contracture. Will also give a dulcolax suppository today. He has not had a documented bowel movement since surgery. (2) Seizure: Code(s): R56.9 - Unspecified convulsions Status: Acute Assessment and Plan: Neurology following and he was started on Keppra. (3) Current use of hims manager anticoagulation: Code(s): Z79.01 - retirement (current) use of anticoagulants Status: Acute Assessment and Plan: Okay to resume anticoagulation from a surgical standpoint (4) Right-sided cerebrovascular accident (CVA): Code(s): I63.9 - Cerebral infarction, unspecified Status: Acute Plan I have discussed the patient's case and plan of care with Dr. Ta. Subjective Subjective Date/Time Seen: 05/17/24 15:43 Post Op day: 5 (Right BKA) Interval history: Patient up in the chair. PT note states he was unable to sit to stand, therefore used a maximove for transfer. The patient is confused and was unable to recall this information. He still has some garbled speech and left-sided weakness with left-sided facial droop. He reports some phantom limb pain the RLE but tolerable. VIRI drain with minimal output over the past few days, no output overnight. He had a modified barium swallow and is now on thickened liquids and a pureed diet. Magnesium low at 1.5 today and replaced with IV mag sulfate. Exam Const: General: comfortable and no acute distress Extrem: Other: Right BKA with knee immobilizer in place, which was removed for dressing change. I removed the suture and VIRI drain at the bedside today. Gauze dressing applied with tape. Right BKA with some expected swelling unchanged from yesterday and sutures intact, skin edges are well approximated with no drainage, flap appears healthy and viable. Objective Data Vital Signs Vital Signs: Vital Signs - 24 hr 05/16/24 19:34 12/09/24 19:41 05/16/24 20:00 Temperature Pulse Rate 75 74 Respiratory Rate 24 H 24 H Blood Pressure Pulse Oximetry Oxygen Delivery Room Air 05/16/24 21:13 05/16/24 21:33 05/17/24 06:00 Temperature 98.1 F 98.4 F Pulse Rate 85 80 80 Respiratory Rate 16 24 H Blood Pressure 125/76 129/77 Pulse Oximetry 92 96 Oxygen Delivery 05/17/24 08:00 05/17/24 08:17 05/17/24 08:17 Temperature Pulse Rate 80 Respiratory Rate 20 Blood Pressure Pulse Oximetry 91 Oxygen Delivery Room Air Room Air 05/17/24 10:11 05/17/24 14:00 Temperature 96.4 F L Pulse Rate 80 80 Respiratory Rate 20 Blood Pressure 122/66 Pulse Oximetry 95 Oxygen Delivery Intake/Output Intake/Output: Intake & Output 05/14/24 05/15/24 05/16/24 05/17/24 23:59 23:59 23:59 23:59 Intake Total 716 340 447.5 480 Output Total 8199 123 6760 900 [facility] [phone] Meds/Results Medications: Active Medications Generic Name Dose Route Start Last Admin Trade Name Freq PRN Reason Stop Dose Admin Acetaminophen 1,000 mg 05/12/24 17:44 Acetaminophen 500 Mg Tablet PO Q6H PRN Mild Pain (1-3) or Fever Hydrocodone Bitart/Acetaminophen 2 tab 05/12/24 17:44 05/15/24 12:24 Hydrocodone/Acetaminophen (*Crx) 5-325 Mg Tablet PO 2 tab Q6H PRN Administration Pain Rated 4-6 Albuterol/Ipratropium 3 ml 05/04/24 01:39 05/17/24 08:16 Ipratropium 0.5 Mg/Albuterol Sulfate 2.5 Mg Ampul.Neb 3 Ml INHALATION 3 ml Q6HRT PRN Administration shortness of breath or wheezing Amoxicillin/Clavulanate Potassium 1 tablet 05/13/24 21:00 05/17/24 10:11 Amoxicillin/Clavulanate K 875-125 Mg Tab PO 05/21/24 21:01 1 tablet Q12HR JHOANA Administration Aspirin 325 mg 05/05/24 09:00 12/10/24 10:11 Aspirin 325 Mg Tablet PO 325 mg DAILY@0800 JHOANA Administration Atorvastatin Calcium 40 mg 05/04/24 09:00 05/17/24 10:11 Atorvastatin 40 Mg Tablet PO 40 mg DAILY JHOANA Administration Carvedilol 6.25 mg 05/15/24 21:00 05/17/24 10:11 Carvedilol 6.25 Mg Tablet PO 6.25 mg Q12HR JHOANA Administration Dextrose 12.5 gm 05/04/24 01:34 Dextrose 50% 25 Gm/50 Ml Syringe IV PUSH PRN PRN Hypoglycemia Protocol Diphenhydramine HCl 12.5 mg 05/04/24 15:08 05/07/24 23:39 Diphenhydramine Hcl Elixir 12.5 Mg/5 Ml Udc PO 12.5 mg Q6H PRN Administration Itching Fentanyl Citrate 25 mcg 05/12/24 16:18 05/12/24 17:10 Fentanyl Citrate Inj (*Crx) 100 Mcg/2 Ml Vial IV PUSH 25 mcg Q2M PRN Administration Pain Folic Acid 1 mg 05/11/24 09:00 05/17/24 10:11 Folic Acid 1 Mg Tablet PO 1 mg DAILY JHOANA Administration Glucagon 1 mg 05/04/24 01:34 Glucagon For Inj 1 Mg Vial IM PRN PRN Hypoglycemia Protocol Glucose 15 gm 05/04/24 01:34 Glucose Oral Gel 15 Gm Of Glucse In 37.5 Gm Tube PO PRN PRN Hypoglycemia Protocol Guaifenesin/Dextromethorphan 10 ml 05/05/24 08:37 05/14/24 20:20 Guaifenesin/Dextromethorphan 10 Ml Udc PO 10 ml Q4H PRN Administration Cough Hydromorphone HCl 1 mg 05/12/24 17:44 05/17/24 14:06 Hydromorphone Hcl Inj (*Crx) 1 Mg/Ml Syr IV PUSH 1 mg Q3H PRN Administration Pain Rated 7-10 Dextrose 1,000 mls @ 100 mls/hr 05/04/24 01:34 Dextrose 5% 1,000 Ml IVPB PRN PRN Hypoglycemia Protocol Levetiracetam 750 mg/ Dextrose 107.5 mls @ 430 mls/hr 05/16/24 21:00 05/17/24 08:42 IVPB 430 mls/hr Q12HR JHOANA Administration Insulin Aspart 3 - 6 units 05/08/24 08:00 05/17/24 12:08 Insulin Aspart (*Bkc) 100 Units/Ml SUB-Q Not Given TIDWM [facility] Protocol Insulin Aspart 8 units 05/09/24 17:00 05/16/24 08:39 Insulin Aspart (*Bkc) 100 Units/Ml SUB-Q 8 units TIDWM JHOANA Administration Insulin Glargine 24 units 05/14/24 21:00 05/15/24 22:01 Insulin Glargine (*Bkc) 100 Units/Ml SUB-Q 24 units HS JHOANA Administration Loratadine 10 mg 05/04/24 08:51 05/04/24 11:45 Loratadine 10 Mg Tablet PO 10 mg QAM PRN Administration itching Lorazepam 1 mg 05/16/24 10:40 Lorazepam Inj (*Crx) 2 Mg/Ml Vial IV PUSH Q6H PRN seizure like activity Montelukast Sodium 10 mg 05/10/24 21:00 05/16/24 21:13 Montelukast Sodium 10 Mg Tablet PO 10 mg HS JHOANA Administration Multi-Ingred Cream/Lotion/Oil/Oint 1 applic 05/13/24 11:45 05/17/24 08:42 Eucerin Cream 120 Gm Jar TOPICAL 1 applic DAILY JHOANA Administration Ondansetron HCl 4 mg 05/03/24 23:51 Ondansetron Inj 4 Mg/2 Ml Vial IV PUSH Q4H PRN Nausea Oxycodone HCl 5 mg 05/12/24 17:44 05/16/24 21:14 Oxycodone Hcl (*Crx) 5 Mg Tab Ir PO 5 mg Q4H PRN Administration Pain Rated 7-10 Pantoprazole Sodium 40 mg 05/14/24 09:00 05/17/24 10:11 Pantoprazole 40 Mg Tablet PO 40 mg QAM JHOANA Administration Tamsulosin HCl 0.4 mg 05/10/24 21:00 05/16/24 21:14 Tamsulosin Hcl 0.4 Mg Capsule PO 0.4 mg QHS JHOANA Administration Valsartan 40 mg 05/16/24 09:00 05/17/24 10:11 Valsartan 40 Mg Tablet PO 40 mg DAILY JHOANA Administration Radiology Results: ITS Impressions Cervical Spine CT 05/03/24 21:01 IMPRESSION: No acute fracture or traumatic malalignment in the cervical spine. Abdomen/Pelvis CT 05/03/24 21:06 IMPRESSION: No acute abdominopelvic process detected. Foot X-Ray 05/04/24 07:08 IMPRESSION: 1. Soft tissue gas in the plantar aspect of the heel. No evidence of osteomyelitis. Carotid Doppler Study 05/04/24 14:15 IMPRESSION: 1. <50% stenosis in the right internal carotid artery. 2. <50% stenosis in the left internal carotid artery. Renal Ultrasound 05/04/24 14:16 IMPRESSION: No definite abnormality. Ankle Brachial Index 05/08/24 06:55 IMPRESSION: 1. Decreased TBIs and normal ABIs, consistent with arterial occlusive disease. Note that ABIs may be overestimated if arteries are calcified. Chest X-Ray 05/09/24 13:15 IMPRESSION: 1. Mild atelectasis in right lower lung zone. Head CT 05/16/24 10:20 IMPRESSION: 1. 10% stenosis of the right carotid bulb relative to normal distal artery lumen diameter (NASCET criteria). 2. 10% stenosis of the left carotid bulb relative to normal distal artery lumen diameter. 3. Interval evolution and increased extent of a moderate-sized subacute infarct in the posterior right frontal lobe now extending medially to the falx. There are a few likely tiny thrombosed vessel centrally within the region of infarcted with surrounding peripheral luxury perfusion on the CT angiogram. 4. No interval change in additional smaller likely subacute infarct in the right parieto-occipital region and small chronic infarct in the inferior right occipital lobe. 5. Extensive nonhemodynamically significant calcified atherosclerotic plaque along the bilateral carotid siphons. No thrombosis, hemodynamically significant stenosis or aneurysm in the more central cerebral arteries including through at least the right M2 segments supplying the region of the right frontal lobe infarct. Head/Neck CTA 05/16/24 10:20 IMPRESSION: 1. 10% stenosis of the right carotid bulb relative to normal distal artery lumen diameter (NASCET criteria). 2. 10% stenosis of the left carotid bulb relative to normal distal artery lumen diameter. 3. Interval evolution and increased extent of a moderate-sized subacute infarct in the posterior right frontal lobe now extending medially to the falx. There are a few likely tiny thrombosed vessel centrally within the region of infarcted with surrounding peripheral luxury perfusion on the CT angiogram. 4. No interval change in additional smaller likely subacute infarct in the right parieto-occipital region and small chronic infarct in the inferior right occipital lobe. 5. Extensive nonhemodynamically significant calcified atherosclerotic plaque along the bilateral carotid siphons. No thrombosis, hemodynamically significant stenosis or aneurysm in the more central cerebral arteries including through at least the right M2 segments supplying the region of the right frontal lobe infarct. Modified Barium Swallow 05/17/24 09:38 IMPRESSION: Oropharyngeal dysphagia with laryngeal penetration without aspiration with multiple consistencies. Please correlate with speech pathologist findings and specific feeding recommendations. Labs Labs: Laboratory Results - last 24 hr 05/16/24 05/16/24 05/16/24 16:23 16:56 20:34 WBC RBC Hgb Hct MCV MCH MCHC RDW Plt Count MPV Immature Gran % (Auto) Neut % (Auto) Lymph % (Auto) Mcleod % (Auto) Eos % (Auto) Baso % (Auto) Lymph # (Auto) Mcleod # (Auto) Eos # (Auto) Baso # (Auto) Abs Immat Gran (auto) Absolute Neuts (auto) Absolute Nucleated RBC Nucleated RBC % Sodium Potassium Chloride Carbon Dioxide Anion Gap BUN Creatinine Estim Creat Clear Calc Estimated GFR Glucose POC Capillary Glucose 146 H 127 H Calcium Phosphorus Magnesium Troponin I 0.019 D Albumin 05/16/24 05/17/24 05/17/24 23:56 05:19 06:47 WBC 10.1 H RBC 2.33 L Hgb 7.6 L Hct 24.3 L MCV 104.3 H MCH 32.6 MCHC 31.3 L RDW 15.8 H Plt Count 279 MPV 10.4 Immature Gran % (Auto) 1.1 H Neut % (Auto) 77.7 H Lymph % (Auto) 11.5 L Mcleod % (Auto) 7.2 Eos % (Auto) 2.1 Baso % (Auto) 0.4 Lymph # (Auto) 1.16 Mcleod # (Auto) 0.7 H Eos # (Auto) 0.2 Baso # (Auto) 0.0 Abs Immat Gran (auto) 0.11 H Absolute Neuts (auto) 7.8 H Absolute Nucleated RBC 0.000 Nucleated RBC % 0.0 Sodium 135 L Potassium 4.2 Chloride 105 Carbon Dioxide 29 Anion Gap 1 L BUN 17 Creatinine 1.10 Estim Creat Clear Calc 87 Estimated GFR > 60 Glucose 148 H POC Capillary Glucose 125 H 147 H Calcium 8.7 Phosphorus 3.3 Magnesium 1.5 L Troponin I Albumin 2.9 L 05/17/24 11:53 WBC RBC Hgb Hct MCV MCH MCHC RDW Plt Count MPV Immature Gran % (Auto) Neut % (Auto) Lymph % (Auto) Mcleod % (Auto) Eos % (Auto) Baso % (Auto) Lymph # (Auto) Mcleod # (Auto) Eos # (Auto) Baso # (Auto) Abs Immat Gran (auto) Absolute Neuts (auto) Absolute Nucleated RBC Nucleated RBC % Sodium Potassium Chloride Carbon Dioxide Anion Gap BUN Creatinine Estim Creat Clear Calc Estimated GFR Glucose POC Capillary Glucose 147 H Calcium Phosphorus Magnesium Troponin I Albumin
[2024-05-17 16:33] LABS: Glucose Point of Care 195 mg/dl (65-105)
[2024-05-17] MEDS: BISACODYL 10 MG SUPPOSITORY RECTAL (17:32)
--- NOTE | 2024-05-17 18:57 | P.PNIM_ITS ---
Progress Note: A&P Assessment and Plan (1) Seizure: Code(s): R56.9 - Unspecified convulsions Status: Acute Assessment and Plan: Patient with seizure like activity and worsening left UE and facial paresis/paralysis. He is off his Xarelto due to his surgery. He is on full ASA and Lipitor. CT head and CTA head/neck - discussed with radiology: no large thrombosis and appears imaging findings showing interval evolution of prior CVA Kepppra added. Neuro consulted and appreciate their input. Clinically better and returning to previous baseline. Speech performed MBS showing he can have Pureed Level 4 with thickened Level 3 liquids. Diet resumed Check EEG. Contnue seizure precautions. Continue Keppra. (2) Acute CVA (cerebrovascular accident): Code(s): I63.9 - Cerebral infarction, unspecified Status: Acute Assessment and Plan: Patient presented on 05/03 with altered mental status, noted to have some facial droop and weakness. Patient was found on the floor with altered mental status. Head CT showed acute infarct involving a portion of the right MCA territory. No MRI since he has a PM Patient was not a candidate for tPA as last well known time is unavailable Carotid ultrasound less than 50% narrowing on both sides Echo was technically difficult with normal LV size but reduced fxn (EF 40-45%), LVH, normal RV fxn, negative bubble and mild valvular disease. (Echo 2020 showing EF 50%). Continue statin, aspirin. We restarted ARB and Coreg Neurology consulted and appreciate their input PT/OT. Off Xarelto currently; resume when okay with neuro given recent events (3) Sepsis: Code(s): A41.9 - Sepsis, unspecified organism Status: Acute Assessment and Plan: Patient presented with altered mental status, fevers to 105? F, elevated lactic acid of 5.3, and tachycardia. Patient was given 30 mL/kg IV fluid bolus. Repeat lactic was 1.8. Mild elevation in troponin is likely related to ischemic demand as patient denies any chest pain. EKG did not show any ST elevations which showed paced rhythm He was treated with sodium bicarb. 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 Repeat blood culture negative. Literature review shows G. morbillorum was 'very susceptible to all the beta- lactam agents (SOLOMON<1mcg/ml) except for cefoxitin'. Another article stated 'No strain was resistant to beta-lactams and vancomycin'. Discontinued cefepime and vancomycin and was switched to linezolid and Zosyn Did not require any pressors. Right forefoot abscess wound culture grew Bacteroides, MSSA and Streptococcus constellatus. Now s/p Rt BKA. Linezolid stopped 05/10. Zosyn changed to Augmentin 05/13. Plan was to treat for 10 days from source control (amputation) for bacteremia and left heel wound WBC trending down. No fevers. Continue abx. 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 Left foot x-ray showed no evidence of osteomyelitis Right foot x-ray showed soft tissue gas in the plantar aspect of the heel, no evidence of osteomyelitis Surgery consulted and status post debridement 05/06/2024; bone is exposed to the right heel Patient underwent right BKA 05/12. Continue routine post-op wound care. PT/OT . Continue routine dressing changes to the left heel. (5) Acute kidney injury: Code(s): N17.9 - Acute kidney failure, unspecified Status: Acute Assessment and Plan: Patient presented with acute kidney injury on admission with Cr 3.40. Baseline creatinine is 0.90-1.40 in 2020. Probably NANY with CKD. NANY related to HoTN, home meds (ARB, Lasix) and sepsis. CKD related to HTN, DM. Received IV fluids and albumin for volume expansion. CK levels peaked at 735 and now trending down CT scan Abd/Pelvis did not show any hydronephrosis. Renal ultrasound with no acute abnormality Nephrology following and appreciate their input Cr trending down to 1.1 felt to be at baseline. ARB resumed at low dose and toelrating this well. Monitor urine output, renal function and electrolytes. (6) Type 2 diabetes mellitus: Code(s): E11.9 - Type 2 diabetes mellitus without complications Status: Acute Assessment and Plan: A1c 8.4%. The patient's blood glucose was reviewed on 05/17 Glucose reasonable Continue AccuCheks covering with sliding scale. Hypoglycemia protocol available as needed. Diet as above. Resume lantus only at lower dose; continue to hold meal time insulin. Continue to follow. (7) Rhabdomyolysis: Qualifiers: Rhabdomyolysis type: non-traumatic Qualified Code(s): M62.82 - Rhabdomyolysis Code(s): M62.82 - Rhabdomyolysis Status: Acute Assessment and Plan: Patient rolled off his couch and was on the floor for unknown amount of time Elevated CK levels to 735 -> 359 CK levels trending down (8) Parkinsons disease: Code(s): G20 - Parkinson's disease Status: Acute Assessment and Plan: History of Parkinson's disease Not on treatment Follow. Continue PT/OT (9) Hypertension: Code(s): I10 - Essential (primary) hypertension Status: Acute Assessment and Plan: Patient's blood pressure was reviewed on 05/17 Blood pressure remains well controlled. Will monitor closely. (10) Asthma: Code(s): J45.909 - Unspecified asthma, uncomplicated Status: Acute Assessment and Plan: Patient was complaining of dry cough and wheezing. He states he has a history of asthma and takes inhaler p.r.n. Patient started on bronchodilators. Symptoms better. Will de-escalate nebs to prn. Follow (11) Anemia: Code(s): D64.9 - Anemia, unspecified Status: Acute Assessment and Plan: Hgb was 10.8 on admission but quickly dropped to 8-9 range. B12/folate normal. Iron studies consistent with chronic disease Possibly related to his renal disease. He was also on Xarelto on admission Hgb dropped to 7 range post surgey but remaining stable. Follow and transfuse as needed. (12) S/P BKA (below knee amputation): Code(s): Z89.519 - Acquired absence of unspecified leg below knee Status: Acute Assessment and Plan: As above Plan DVT prophylaxis: SCDs Code Status: Do not resuscitate Subjective Date/time seen: 05/17/24 18:57 Interval history: 63yo male with CHF, Parkinson, HTN, AFlutter on Xarelto, CAD here after being found down. No recurrent episodes of seizure. No Cp or SOB. No n/v. Exam Narrative: AF 96.4 122/66 80 20 95% RA Gen - NARD Chest - clear anteriorly and in the flanks, nml RR. CV - RRR S1/S2 Abd - Soft, NT/ND, Positive BS - Mckeon secured with clear yellow urine in bag Ext - Left foot dressing clean and dry. No left pedal edema. Right BKA ASA wrapped and is clean and dry. Neuro - awake, alert and appropriate. speech clearer. Left UE weakness bettre. Left facial droop improved. Psych - normal mood Skin - Warm and dry. chronic venous stasis skin changes LLE Objective Data Vital Signs Vital Signs: Vital Signs - 24 hr 05/16/24 19:34 05/16/24 19:41 05/16/24 20:00 Temperature Pulse Rate 75 74 Respiratory Rate 24 H 24 H Blood Pressure Pulse Oximetry Oxygen Delivery Room Air 05/16/24 21:13 05/16/24 21:33 05/17/24 06:00 Temperature 98.1 F 98.4 F Pulse Rate 85 80 80 Respiratory Rate 16 24 H Blood Pressure 125/76 129/77 Pulse Oximetry 92 96 Oxygen Delivery 05/17/24 08:00 05/17/24 08:17 05/17/24 08:17 Temperature Pulse Rate 80 Respiratory Rate 20 Blood Pressure Pulse Oximetry 91 Oxygen Delivery Room Air Room Air 05/17/24 10:11 05/17/24 14:00 Temperature 96.4 F L Pulse Rate 80 80 Respiratory Rate 20 Blood Pressure 122/66 Pulse Oximetry 95 Oxygen Delivery Intake/Output Intake/Output: Intake & Output 05/14/24 05/15/24 05/16/24 05/17/24 23:59 23:59 23:59 23:59 Intake Total 716 340 447.5 1340 Output Total 9931 107 5364 1800 [facility] -784 -460 -757.5 -460 Meds/Results Medications: Active Medications Generic Name Dose Route Start Last Admin Trade Name Freq PRN Reason Stop Dose Admin Acetaminophen 1,000 mg 05/12/24 17:44 Acetaminophen 500 Mg Tablet PO Q6H PRN Mild Pain (1-3) or Fever Hydrocodone Bitart/Acetaminophen 2 tab 05/12/24 17:44 05/15/24 12:24 Hydrocodone/Acetaminophen (*Crx) 5-325 Mg Tablet PO 2 tab Q6H PRN Administration Pain Rated 4-6 Albuterol/Ipratropium 3 ml 05/04/24 01:39 05/17/24 08:16 Ipratropium 0.5 Mg/Albuterol Sulfate 2.5 Mg Ampul.Neb 3 Ml INHALATION 3 ml Q6HRT PRN Administration shortness of breath or wheezing Amoxicillin/Clavulanate Potassium 1 tablet 05/13/24 21:00 05/17/24 10:11 Amoxicillin/Clavulanate K 875-125 Mg Tab PO 05/21/24 21:01 1 tablet Q12HR JHOANA Administration Aspirin 325 mg 05/05/24 09:00 05/17/24 10:11 Aspirin 325 Mg Tablet PO 325 mg DAILY@0800 JHOANA Administration Atorvastatin Calcium 40 mg 05/04/24 09:00 05/17/24 10:11 Atorvastatin 40 Mg Tablet PO 40 mg DAILY JHOANA Administration Carvedilol 6.25 mg 05/15/24 21:00 05/17/24 10:11 Carvedilol 6.25 Mg Tablet PO 6.25 mg Q12HR JHOANA Administration Dextrose 12.5 gm 05/04/24 01:34 Dextrose 50% 25 Gm/50 Ml Syringe IV PUSH PRN PRN Hypoglycemia Protocol Diphenhydramine HCl 12.5 mg 05/04/24 15:08 05/07/24 23:39 Diphenhydramine Hcl Elixir 12.5 Mg/5 Ml Udc PO 12.5 mg Q6H PRN Administration Itching Fentanyl Citrate 25 mcg 05/12/24 16:18 05/12/24 17:10 Fentanyl Citrate Inj (*Crx) 100 Mcg/2 Ml Vial IV PUSH 25 mcg Q2M PRN Administration Pain Folic Acid 1 mg 05/11/24 09:00 05/17/24 10:11 Folic Acid 1 Mg Tablet PO 1 mg DAILY JHOANA Administration Glucagon 1 mg 05/04/24 01:34 Glucagon For Inj 1 Mg Vial IM PRN PRN Hypoglycemia Protocol Glucose 15 gm 05/04/24 01:34 Glucose Oral Gel 15 Gm Of Glucse In 37.5 Gm Tube PO PRN PRN Hypoglycemia Protocol Guaifenesin/Dextromethorphan 10 ml 05/05/24 08:37 05/14/24 20:20 Guaifenesin/Dextromethorphan 10 Ml Udc PO 10 ml Q4H PRN Administration Cough Hydromorphone HCl 1 mg 05/12/24 17:44 05/17/24 14:06 Hydromorphone Hcl Inj (*Crx) 1 Mg/Ml Syr IV PUSH 1 mg Q3H PRN Administration Pain Rated 7-10 Dextrose 1,000 mls @ 100 mls/hr 05/04/24 01:34 Dextrose 5% 1,000 Ml IVPB PRN PRN Hypoglycemia Protocol Levetiracetam 750 mg/ Dextrose 107.5 mls @ 430 mls/hr 05/16/24 21:00 05/17/24 08:42 IVPB 430 mls/hr Q12HR JHOANA Administration Insulin Aspart 3 - 6 units 05/08/24 08:00 05/17/24 16:40 Insulin Aspart (*Bkc) 100 Units/Ml SUB-Q Not Given TIDWM JHOANA Protocol Insulin Aspart 8 units 05/09/24 17:00 05/16/24 08:39 Insulin Aspart (*Bkc) 100 Units/Ml SUB-Q 8 units TIDWM JHOANA Administration Insulin Glargine 24 units 05/14/24 21:00 05/15/24 22:01 Insulin Glargine (*Bkc) 100 Units/Ml SUB-Q 24 units HS JHOANA Administration Loratadine 10 mg 05/04/24 08:51 05/04/24 11:45 Loratadine 10 Mg Tablet PO 10 mg QAM PRN Administration itching Lorazepam 1 mg 05/16/24 10:40 Lorazepam Inj (*Crx) 2 Mg/Ml Vial IV PUSH Q6H PRN seizure like activity Montelukast Sodium 10 mg 05/10/24 21:00 05/16/24 21:13 Montelukast Sodium 10 Mg Tablet PO 10 mg HS JHOANA Administration Multi-Ingred Cream/Lotion/Oil/Oint 1 applic 05/13/24 11:45 05/17/24 08:42 Eucerin Cream 120 Gm Jar TOPICAL 1 applic DAILY JHOANA Administration Ondansetron HCl 4 mg 05/03/24 23:51 Ondansetron Inj 4 Mg/2 Ml Vial IV PUSH Q4H PRN Nausea Oxycodone HCl 5 mg 05/12/24 17:44 05/16/24 21:14 Oxycodone Hcl (*Crx) 5 Mg Tab Ir PO 5 mg Q4H PRN Administration Pain Rated 7-10 Pantoprazole Sodium 40 mg 05/14/24 09:00 05/17/24 10:11 Pantoprazole 40 Mg Tablet PO 40 mg QAM JHOANA Administration Tamsulosin HCl 0.4 mg 05/10/24 21:00 05/16/24 21:14 Tamsulosin Hcl 0.4 Mg Capsule PO 0.4 mg QHS JHOANA Administration Valsartan 40 mg 05/16/24 09:00 05/17/24 10:11 Valsartan 40 Mg Tablet PO 40 mg DAILY JHOANA Administration Radiology Results: ITS Impressions Cervical Spine CT 05/03/24 21:01 IMPRESSION: No acute fracture or traumatic malalignment in the cervical spine. Abdomen/Pelvis CT 05/03/24 21:06 IMPRESSION: No acute abdominopelvic process detected. Foot X-Ray 05/04/24 07:08 IMPRESSION: 1. Soft tissue gas in the plantar aspect of the heel. No evidence of osteomyelitis. Carotid Doppler Study 05/04/24 14:15 IMPRESSION: 1. <50% stenosis in the right internal carotid artery. 2. <50% stenosis in the left internal carotid artery. Renal Ultrasound 05/04/24 14:16 IMPRESSION: No definite abnormality. Ankle Brachial Index 05/08/24 06:55 IMPRESSION: 1. Decreased TBIs and normal ABIs, consistent with arterial occlusive disease. Note that ABIs may be overestimated if arteries are calcified. Chest X-Ray 05/09/24 13:15 IMPRESSION: 1. Mild atelectasis in right lower lung zone. Head CT 05/16/24 10:20 IMPRESSION: 1. 10% stenosis of the right carotid bulb relative to normal distal artery lumen diameter (NASCET criteria). 2. 10% stenosis of the left carotid bulb relative to normal distal artery lumen diameter. 3. Interval evolution and increased extent of a moderate-sized subacute infarct in the posterior right frontal lobe now extending medially to the falx. There are a few likely tiny thrombosed vessel centrally within the region of infarcted with surrounding peripheral luxury perfusion on the CT angiogram. 4. No interval change in additional smaller likely subacute infarct in the right parieto-occipital region and small chronic infarct in the inferior right occipital lobe. 5. Extensive nonhemodynamically significant calcified atherosclerotic plaque along the bilateral carotid siphons. No thrombosis, hemodynamically significant stenosis or aneurysm in the more central cerebral arteries including through at least the right M2 segments supplying the region of the right frontal lobe infarct. Head/Neck CTA 05/16/24 10:20 IMPRESSION: 1. 10% stenosis of the right carotid bulb relative to normal distal artery lumen diameter (NASCET criteria). 2. 10% stenosis of the left carotid bulb relative to normal distal artery lumen diameter. 3. Interval evolution and increased extent of a moderate-sized subacute infarct in the posterior right frontal lobe now extending medially to the falx. There are a few likely tiny thrombosed vessel centrally within the region of infarcted with surrounding peripheral luxury perfusion on the CT angiogram. 4. No interval change in additional smaller likely subacute infarct in the right parieto-occipital region and small chronic infarct in the inferior right occipital lobe. 5. Extensive nonhemodynamically significant calcified atherosclerotic plaque along the bilateral carotid siphons. No thrombosis, hemodynamically significant stenosis or aneurysm in the more central cerebral arteries including through at least the right M2 segments supplying the region of the right frontal lobe infarct. Modified Barium Swallow 05/17/24 09:38 IMPRESSION: Oropharyngeal dysphagia with laryngeal penetration without aspiration with multiple consistencies. Please correlate with speech pathologist findings and specific feeding recommendations. Labs Labs: Laboratory Results - last 24 hr 05/16/24 05/16/24 05/17/24 20:34 23:56 05:19 WBC RBC Hgb Hct MCV MCH MCHC RDW Plt Count MPV Immature Gran % (Auto) Neut % (Auto) Lymph % (Auto) [place] % (Auto) Eos % (Auto) Baso % (Auto) Lymph # (Auto) [place] # (Auto) Eos # (Auto) Baso # (Auto) Abs Immat Gran (auto) Absolute Neuts (auto) Absolute Nucleated RBC Nucleated RBC % Sodium Potassium Chloride Carbon Dioxide Anion Gap BUN Creatinine Estim Creat Clear Calc Estimated GFR Glucose POC Capillary Glucose 127 H 125 H 147 H Calcium Phosphorus Magnesium Albumin 05/17/24 05/17/24 05/17/24 06:47 11:53 16:30 WBC 10.1 H RBC 2.33 L Hgb 7.6 L Hct 24.3 L MCV 104.3 H MCH 32.6 MCHC 31.3 L RDW 15.8 H Plt Count 279 MPV 10.4 Immature Gran % (Auto) 1.1 H Neut % (Auto) 77.7 H Lymph % (Auto) 11.5 L [place] % (Auto) 7.2 Eos % (Auto) 2.1 Baso % (Auto) 0.4 Lymph # (Auto) 1.16 [place] # (Auto) 0.7 H Eos # (Auto) 0.2 Baso # (Auto) 0.0 Abs Immat Gran (auto) 0.11 H Absolute Neuts (auto) 7.8 H Absolute Nucleated RBC 0.000 Nucleated RBC % 0.0 Sodium 135 L Potassium 4.2 Chloride 105 Carbon Dioxide 29 Anion Gap 1 L BUN 17 Creatinine 1.10 Estim Creat Clear Calc 87 Estimated GFR > 60 Glucose 148 H POC Capillary Glucose 147 H 195 H Calcium 8.7 Phosphorus 3.3 Magnesium 1.5 L Albumin 2.9 L
[2024-05-17 20:04] LABS: Glucose Point of Care 186 mg/dl (65-105)
[2024-05-17 21:32] VITALS: BP 139/76; PULSE 81; RESP 20; TEMP 37.1; O2SAT 92
[2024-05-17] MEDS: TAMSULOSIN HCL 0.4 MG CAPSULE PO (21:34)
[2024-05-17] MEDS: MONTELUKAST SODIUM 10 MG TABLET PO (21:34)
[2024-05-17] MEDS: INSULIN GLARGINE (*BKC) 100 UNITS/ML 18 UNITS SUB-Q (21:35)
[2024-05-17] MEDS: guaiFENesin/DEXTROMETHORPHAN 10 ML UDC PO (21:51)
[2024-05-18] VITALS (7 sets, daily range): BP systolic 116–127; BP diastolic 57–68; PULSE 64–80; RESP 16–20; TEMP 35.9–37.6; O2SAT 91–96
[2024-05-18] MEDS: ACETAMINOPHEN 500 MG TABLET 1000 MG PO (02:15)
[2024-05-18] MEDS: guaiFENesin/DEXTROMETHORPHAN 10 ML UDC PO (02:15)
[2024-05-18 07:01] LABS: Hematocrit 26.2 % (42.0-52.0); Hemoglobin 7.9 g/dL (14.0-18.0); Mean Corpuscular HGB Conc 30.2 g/dl (32-36); Mean Corpuscular Hemoglobin 31.5 pg (26-34); Mean Corpuscular Volume 104.4 fl (80-100); Mean Platelet Volume 10.4 fl (7.4-10.4); Platelet Count Result 309 k/mm3 (150-375); Red Blood Count 2.51 M/mm3 (4.6-6.20); White Blood Count 12.9 K/mm3 (4.5-10.0)
[2024-05-18 07:20] LABS: Anion Gap 2 mmol/L (4-12); Blood Urea Nitrogen 21 mg/dL (9-20); Carbon Dioxide 31 mmol/L (22-30); Chloride 104 mmol/L (98-107); Estimated CRCL calculation 80 ml/min; Estimated Glomerular Filt Rate > 60; Glucose 189 mg/dL (65-110); Potassium 4.8 mmol/L (3.4-5.0); Sodium 137 mmol/L (137-145)
[2024-05-18 08:04] LABS: Glucose Point of Care 161 mg/dl (65-105)
--- NOTE | 2024-05-18 08:50 | PM.IMPN ---
Progress Note: A&P Assessment and Plan (1) Sepsis: Code(s): A41.9 - Sepsis, unspecified organism Status: Acute Assessment and Plan: Patient presented with altered mental status, fevers to 105? F, elevated lactic acid of 5.3, and tachycardia. Patient was given 30 mL/kg IV fluid bolus. Repeat lactic was 1.8. Mild elevation in troponin is likely related to ischemic demand as patient denies any chest pain. EKG did not show any ST elevations which showed paced rhythm He was treated with sodium bicarb. 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 Repeat blood culture negative. Literature review shows G. morbillorum was 'very susceptible to all the beta-lactam agents (SOLOMON<1mcg/ml) except for cefoxitin'. Another article stated 'No strain was resistant to beta-lactams and vancomycin'. Discontinued cefepime and vancomycin and was switched to linezolid and Zosyn Did not require any pressors. Right forefoot abscess wound culture grew Bacteroides, MSSA and Streptococcus constellatus. Now s/p Rt BKA on 05/[address] Ta. Linezolid stopped 05/10. Zosyn changed to Augmentin 05/13. Plan was to treat for 10 days from source control (amputation) for bacteremia and left heel wound WBC trending down. No fevers. Continue abx. (2) Seizure: Code(s): R56.9 - Unspecified convulsions Status: Acute Assessment and Plan: Patient with seizure like activity and worsening left UE and facial paresis/paralysis. He is off his Xarelto due to his surgery. He is on full ASA and Lipitor. CT head and CTA head/neck - discussed with radiology: no large thrombosis and appears imaging findings showing interval evolution of prior CVA Keppra added. Neuro consulted and appreciate their input. Clinically better and returning to previous baseline. Speech performed MBS showing he can have Pureed Level 4 with thickened Level 3 liquids. Diet resumed Check EEG. Contnue seizure precautions. Continue Keppra. (3) Acute CVA (cerebrovascular accident): Code(s): I63.9 - Cerebral infarction, unspecified Status: Acute Assessment and Plan: Patient presented on 05/03 with altered mental status, noted to have some facial droop and weakness. Patient was found on the floor with altered mental status. Head CT showed acute infarct involving a portion of the right MCA territory. No MRI since he has a PM Patient was not a candidate for tPA as last well known time is unavailable Carotid ultrasound less than 50% narrowing on both sides Echo was technically difficult with normal LV size but reduced fxn (EF 40-45%), LVH, normal RV fxn, negative bubble and mild valvular disease. (Echo 2019 showing EF 50%). Continue statin, aspirin. We restarted ARB and Coreg PT/OT. Resumed Xarelto; prior to resuming medication discussed with neuro Dr. Hopper Neurology consulted and appreciate their input (4) Diabetic foot ulcer: Qualifiers: Diabetes mellitus type: type 2 Diabetic foot ulcer location: midfoot Laterality: right Non-pressure ulcer stage: with muscle involvement without evidence of necrosis Qualified Code(s): E11.621 - Type 2 diabetes mellitus with foot ulcer; L97.415 - Non-pressure chronic ulcer of right heel and midfoot with muscle involvement without evidence of necrosis Code(s): E11.621 - Type 2 diabetes mellitus with foot ulcer; L97.509 - Non-pressure chronic ulcer of other part of unspecified foot with unspecified severity Status: Acute Assessment and Plan: Patient has bilateral diabetic foot ulcers R>L. Left foot x-ray showed no evidence of osteomyelitis Right foot x-ray showed soft tissue gas in the plantar aspect of the heel, no evidence of osteomyelitis Surgery consulted and status post debridement 05/06/2024; bone is exposed to the right heel Patient underwent right BKA 05/12. Continue routine post-op wound care. PT/OT. VIRI drain removed 05/17. Continue routine dressing changes to the left heel. (5) Acute kidney injury: Code(s): N17.9 - Acute kidney failure, unspecified Status: Acute Assessment and Plan: Patient presented with acute kidney injury on admission with Cr 3.40. Baseline creatinine is 0.90-1.40 in 2020. Probably NANY with CKD. NANY related to HoTN, home meds (ARB, Lasix) and sepsis. CKD related to HTN, DM. Received IV fluids and albumin for volume expansion. CK levels peaked at 735 and now trending down CT scan Abd/Pelvis did not show any hydronephrosis. Renal ultrasound with no acute abnormality Cr trending down to 1.2 felt to be at baseline. ARB resumed at low dose and tolerating this well. Monitor urine output, renal function and electrolytes. Nephrology following and appreciate their input (6) Type 2 diabetes mellitus: Code(s): E11.9 - Type 2 diabetes mellitus without complications Status: Acute Assessment and Plan: A1c 8.4%. Glucose reasonable Continue AccuCheks covering with sliding scale. Hypoglycemia protocol available as needed. Diet as above. Resume lantus only at lower dose; continue to hold meal time insulin. Continue to follow. (7) Rhabdomyolysis: Qualifiers: Rhabdomyolysis type: non-traumatic Qualified Code(s): M62.82 - Rhabdomyolysis Code(s): M62.82 - Rhabdomyolysis Status: Acute Assessment and Plan: Patient rolled off his couch and was on the floor for unknown amount of time Elevated CK levels to 735 -> 359 CK levels trending down (8) Parkinsons disease: Code(s): G20 - Parkinson's disease Status: Acute Assessment and Plan: History of Parkinson's disease Not on treatment Follow. Continue PT/OT (9) Hypertension: Code(s): I10 - Essential (primary) hypertension Status: Acute Assessment and Plan: Blood pressure remains well controlled. Will monitor closely. (10) Asthma: Code(s): J45.909 - Unspecified asthma, uncomplicated Status: Acute Assessment and Plan: Patient was complaining of dry cough and wheezing. He states he has a history of asthma and takes inhaler p.r.n. Patient started on bronchodilators. Symptoms better. Will de-escalate nebs to prn. Follow (11) Anemia: Code(s): D64.9 - Anemia, unspecified Status: Acute Assessment and Plan: Hgb was 10.8 on admission but quickly dropped to 8-9 range. B12/folate normal. Iron studies consistent with chronic disease Possibly related to his renal disease. He was also on Xarelto on admission Hgb dropped to 7 range post surgey but remaining stable. Follow and transfuse as needed. (12) S/P BKA (below knee amputation): Code(s): Z89.519 - Acquired absence of unspecified leg below knee Status: Acute Assessment and Plan: As above Plan DVT prophylaxis: SCDs Code Status: Do not resuscitate Time Spent With Patient Time with patient: 25 - 35 minutes Subjective Date/time seen: 05/18/24 08:50 Interval history: 63-year-old male with past medical history of systolic congestive heart failure gout, Parkinson's, essential hypertension, atrial flutter, cardiac pacemaker, coronary artery disease with cardiac stent, and chronic anticoagulation who presented to the ER from home via EMS after being found down on the floor and confused. Patient is pleasant lying in bed. He has no complaints at this time, denying chest pain, shortness of breath, nausea/vomiting and abdominal pain. He states that his left sided weakness is at its baseline. Discussed antibiotic course with Dr. Ta and he is in agreement with a 10 day course from wound control. Discussed resuming the xarelto with Dr. Hopper and he is in agreement to resume the anticoagulation. Care coordination following for placement. Review of Systems Review of Systems: All systems reviewed & are unremarkable except as noted in HPI and below Exam Narrative: AF HR 80 RR 16 Spo2 91 BP 120/64 General: male in no acute respiratory distress who is nontoxic appearing, lying semi recumbent in bed. HEENT: Normocephalic. Atraumatic. Extraocular movement intact. Sclera clear and anicteric. Slight left facial droop. Chest: Lungs are clear to auscultation bilaterally. No wheezes or crackles. CV: Heart was regular rate and rhythm. S1/S2. No murmurs, gallops, or rubs. Abd: Abdomen was soft. Nontender. Nondistended. Positive bowel sounds. No organomegaly or masses. Ext: No clubbing, cyanosis, or edema. 2+ DP pulses bilaterally. Neuro: Patient is alert and oriented x3 (person, place, year). Upper extremity weakness to the left with club concierge, push and pulls. Cranial nerves 2-12 are intact. Speech is clear. Objective Data Vital Signs Vital Signs: Vital Signs - 24 hr 05/17/24 10:11 05/17/24 14:00 05/17/24 20:00 Temperature 96.4 F L Pulse Rate 80 80 Respiratory Rate 20 Blood Pressure 122/66 Pulse Oximetry 95 Oxygen Delivery Room Air 05/17/24 21:32 05/18/24 02:15 05/18/24 03:15 Temperature 98.7 F 99.7 F H 96.7 F L Pulse Rate 81 Respiratory Rate 20 Blood Pressure 139/76 Pulse Oximetry 92 Oxygen Delivery 05/18/24 06:00 Temperature 96.7 F L Pulse Rate 80 Respiratory Rate 16 Blood Pressure 120/64 Pulse Oximetry 91 Oxygen Delivery Intake/Output Intake/Output: Intake & Output 05/15/24 05/16/24 05/17/24 05/18/24 23:59 23:59 23:59 23:59 Intake Total 340 447.5 1555.0 250 Output Total 800 1205 1800 650 Balance -460 -757.5 -245.0 -400 Meds/Results Medications: Active Medications Generic Name Dose Route Start Last Admin Trade Name Freq PRN Reason Stop Dose Admin Acetaminophen 1,000 mg 05/12/24 17:44 05/18/24 02:15 Acetaminophen 500 Mg Tablet PO 1,000 mg Q6H PRN Administration Mild Pain (1-3) or Fever Hydrocodone Bitart/Acetaminophen 2 tab 05/12/24 17:44 05/15/24 12:24 Hydrocodone/Acetaminophen (*Crx) 5-325 Mg Tablet PO 2 tab Q6H PRN Administration Pain Rated 4-6 Albuterol/Ipratropium 3 ml 05/04/24 01:39 05/17/24 08:16 Ipratropium 0.5 Mg/Albuterol Sulfate 2.5 Mg Ampul.Neb 3 Ml INHALATION 3 ml Q6HRT PRN Administration shortness of breath or wheezing Amoxicillin/Clavulanate Potassium 1 tablet 05/13/24 21:00 05/17/24 21:34 Amoxicillin/Clavulanate K 875-125 Mg Tab PO 05/21/24 21:01 1 tablet Q12HR JHOANA Administration Aspirin 325 mg 05/05/24 09:00 05/17/24 10:11 Aspirin 325 Mg Tablet PO 325 mg DAILY@0800 JHOANA Administration Atorvastatin Calcium 40 mg 05/04/24 09:00 05/17/24 10:11 Atorvastatin 40 Mg Tablet PO 40 mg DAILY JHOANA Administration Carvedilol 6.25 mg 05/15/24 21:00 05/17/24 21:34 Carvedilol 6.25 Mg Tablet PO 6.25 mg Q12HR JHOANA Administration Dextrose 12.5 gm 05/04/24 01:34 Dextrose 50% 25 Gm/50 Ml Syringe IV PUSH PRN PRN Hypoglycemia Protocol Diphenhydramine HCl 12.5 mg 05/04/24 15:08 05/07/24 23:39 Diphenhydramine Hcl Elixir 12.5 Mg/5 Ml Udc PO 12.5 mg Q6H PRN Administration Itching Fentanyl Citrate 25 mcg 05/12/24 16:18 05/12/24 17:10 Fentanyl Citrate Inj (*Crx) 100 Mcg/2 Ml Vial IV PUSH 25 mcg Q2M PRN Administration Pain Folic Acid 1 mg 05/11/24 09:00 05/17/24 10:11 Folic Acid 1 Mg Tablet PO 1 mg DAILY JHOANA Administration Glucagon 1 mg 05/04/24 01:34 Glucagon For Inj 1 Mg Vial IM PRN PRN Hypoglycemia Protocol Glucose 15 gm 05/04/24 01:34 Glucose Oral Gel 15 Gm Of Glucse In 37.5 Gm Tube PO PRN PRN Hypoglycemia Protocol Guaifenesin/Dextromethorphan 10 ml 05/05/24 08:37 05/18/24 02:15 Guaifenesin/Dextromethorphan 10 Ml Udc PO 10 ml Q4H PRN Administration Cough Hydromorphone HCl 1 mg 05/12/24 17:44 05/17/24 14:06 Hydromorphone Hcl Inj (*Crx) 1 Mg/Ml Syr IV PUSH 1 mg Q3H PRN Administration Pain Rated 7-10 Dextrose 1,000 mls @ 100 mls/hr 05/04/24 01:34 Dextrose 5% 1,000 Ml IVPB PRN PRN Hypoglycemia Protocol Levetiracetam 750 mg/ Dextrose 107.5 mls @ 430 mls/hr 05/16/24 21:00 05/17/24 21:54 IVPB Infused Q12HR JHOANA Infusion Insulin Aspart 3 - 6 units 05/08/24 08:00 05/17/24 16:40 Insulin Aspart (*Bkc) 100 Units/Ml SUB-Q Not Given TIDWM [facility] Protocol Insulin Aspart 8 units 05/09/24 17:00 05/16/24 08:39 Insulin Aspart (*Bkc) 100 Units/Ml SUB-Q 8 units TIDWM JHOANA Administration Insulin Glargine 18 units 05/17/24 21:00 05/17/24 21:35 Insulin Glargine (*Bkc) 100 Units/Ml SUB-Q 18 units HS JHOANA Administration Loratadine 10 mg 05/04/24 08:51 05/04/24 11:45 Loratadine 10 Mg Tablet PO 10 mg QAM PRN Administration itching Lorazepam 1 mg 05/16/24 10:40 Lorazepam Inj (*Crx) 2 Mg/Ml Vial IV PUSH Q6H PRN seizure like activity Montelukast Sodium 10 mg 05/10/24 21:00 05/17/24 21:34 Montelukast Sodium 10 Mg Tablet PO 10 mg HS JHOANA Administration Multi-Ingred Cream/Lotion/Oil/Oint 1 applic 05/13/24 11:45 05/17/24 08:42 Eucerin Cream 120 Gm Jar TOPICAL 1 applic DAILY JHOANA Administration Ondansetron HCl 4 mg 05/03/24 23:51 Ondansetron Inj 4 Mg/2 Ml Vial IV PUSH Q4H PRN Nausea Oxycodone HCl 5 mg 05/12/24 17:44 05/16/24 21:14 Oxycodone Hcl (*Crx) 5 Mg Tab Ir PO 5 mg Q4H PRN Administration Pain Rated 7-10 Pantoprazole Sodium 40 mg 05/14/24 09:00 05/17/24 10:11 Pantoprazole 40 Mg Tablet PO 40 mg QAM JHOANA Administration Tamsulosin HCl 0.4 mg 05/10/24 21:00 05/17/24 21:34 Tamsulosin Hcl 0.4 Mg Capsule PO 0.4 mg QHS JHOANA Administration Valsartan 40 mg 05/16/24 09:00 05/17/24 10:11 Valsartan 40 Mg Tablet PO 40 mg DAILY JHOANA Administration Radiology Results: ITS Impressions Cervical Spine CT 05/03/24 21:01 IMPRESSION: No acute fracture or traumatic malalignment in the cervical spine. Abdomen/Pelvis CT 05/03/24 21:06 IMPRESSION: No acute abdominopelvic process detected. Foot X-Ray 05/04/24 07:08 IMPRESSION: 1. Soft tissue gas in the plantar aspect of the heel. No evidence of osteomyelitis. Carotid Doppler Study 05/04/24 14:15 IMPRESSION: 1. <50% stenosis in the right internal carotid artery. 2. <50% stenosis in the left internal carotid artery. Renal Ultrasound 05/04/24 14:16 IMPRESSION: No definite abnormality. Ankle Brachial Index 05/08/24 06:55 IMPRESSION: 1. Decreased TBIs and normal ABIs, consistent with arterial occlusive disease. Note that ABIs may be overestimated if arteries are calcified. Chest X-Ray 05/09/24 13:15 IMPRESSION: 1. Mild atelectasis in right lower lung zone. Head CT 05/16/24 10:20 IMPRESSION: 1. 10% stenosis of the right carotid bulb relative to normal distal artery lumen diameter (NASCET criteria). 2. 10% stenosis of the left carotid bulb relative to normal distal artery lumen diameter. 3. Interval evolution and increased extent of a moderate-sized subacute infarct in the posterior right frontal lobe now extending medially to the falx. There are a few likely tiny thrombosed vessel centrally within the region of infarcted with surrounding peripheral luxury perfusion on the CT angiogram. 4. No interval change in additional smaller likely subacute infarct in the right parieto-occipital region and small chronic infarct in the inferior right occipital lobe. 5. Extensive nonhemodynamically significant calcified atherosclerotic plaque along the bilateral carotid siphons. No thrombosis, hemodynamically significant stenosis or aneurysm in the more central cerebral arteries including through at least the right M2 segments supplying the region of the right frontal lobe infarct. Head/Neck CTA 05/16/24 10:20 IMPRESSION: 1. 10% stenosis of the right carotid bulb relative to normal distal artery lumen diameter (NASCET criteria). 2. 10% stenosis of the left carotid bulb relative to normal distal artery lumen diameter. 3. Interval evolution and increased extent of a moderate-sized subacute infarct in the posterior right frontal lobe now extending medially to the falx. There are a few likely tiny thrombosed vessel centrally within the region of infarcted with surrounding peripheral luxury perfusion on the CT angiogram. 4. No interval change in additional smaller likely subacute infarct in the right parieto-occipital region and small chronic infarct in the inferior right occipital lobe. 5. Extensive nonhemodynamically significant calcified atherosclerotic plaque along the bilateral carotid siphons. No thrombosis, hemodynamically significant stenosis or aneurysm in the more central cerebral arteries including through at least the right M2 segments supplying the region of the right frontal lobe infarct. Modified Barium Swallow 05/17/24 09:38 IMPRESSION: Oropharyngeal dysphagia with laryngeal penetration without aspiration with multiple consistencies. Please correlate with speech pathologist findings and specific feeding recommendations. Labs Labs: Laboratory Results - last 24 hr 05/17/24 05/17/24 05/17/24 11:53 16:30 19:40 WBC RBC Hgb Hct MCV MCH MCHC RDW Plt Count MPV Sodium Potassium Chloride Carbon Dioxide Anion Gap BUN Creatinine Estim Creat Clear Calc Estimated GFR Glucose POC Capillary Glucose 147 H 195 H 186 H Calcium 05/18/24 05/18/24 05/18/24 06:31 06:32 07:54 WBC 12.9 H RBC 2.51 L Hgb 7.9 L Hct 26.2 L MCV 104.4 H MCH 31.5 MCHC 30.2 L RDW 16.0 H Plt Count 309 MPV 10.4 Sodium 137 Potassium 4.8 Chloride 104 Carbon Dioxide 31 H Anion Gap 2 L BUN 21 H Creatinine 1.20 Estim Creat Clear Calc 80 Estimated GFR > 60 Glucose 189 H POC Capillary Glucose 161 H Calcium 9.0 Quality VTE Prophylaxis VTE prophylaxis: pharmacologic ordered
[2024-05-18] MEDS: levETIRAcetam IV 750 MG in DEXTROSE 5% 100 ML 430 MG IVPB ×2 (11:03→21:00)
[2024-05-18] MEDS: ASPIRIN 325 MG TABLET PO (11:04)
[2024-05-18] MEDS: AMOXICILLIN/CLAVULANATE K 875-125 MG TAB 1 TABLET PO ×2 (11:04→20:56)
[2024-05-18] MEDS: ATORVASTATIN 40 MG TABLET PO (11:04)
[2024-05-18] MEDS: EUCERIN CREAM 120 GM JAR 1 APPLIC TOPICAL (11:04)
[2024-05-18] MEDS: carvediloL 6.25 MG TABLET PO ×2 (11:04→20:56)
[2024-05-18] MEDS: PANTOPRAZOLE 40 MG TABLET PO (11:04)
[2024-05-18] MEDS: VALSARTAN 40 MG TABLET PO (11:05)
[2024-05-18] MEDS: FOLIC ACID 1 MG TABLET PO (11:05)
[2024-05-18 11:40] LABS: Glucose Point of Care 218 mg/dl (65-105)
--- NOTE | 2024-05-18 11:45 | PCPTNOTE ---
Patient sleeping soundly when I entered room requiring verbal and tactlie stim to arouse. Patient declined PT stating I am too tired. I can't do it now. Patient declined repositioning in bed to eat, however patient refused this activity stating I am not hungry. I don't want to eat. PT will continue to follow per plan of care.
--- NOTE | 2024-05-18 12:19 | WPDPN ---
Progress Note: A&P Assessment and Plan (1) Status post below knee amputation of right lower extremity: Code(s): Z89.511 - Acquired absence of right leg below knee Status: Acute Assessment and Plan: The right BKA stump is healing well. Sutures are in place. Continue wrapping the end the stump and keeping it elevated. Can use the knee immobilizer to keep him for any contracture. Continue PT and OT while here in the hospital and when he eventually goes to assisted facility. Will plan on bringing him back to the [facility] in about 2 weeks for removal of the sutures. 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 He may restart Xarelto at any point general surgery standpoint (2) Ulcer of left heel: Code(s): L97.429 - Non-pressure chronic ulcer of left heel and midfoot with unspecified severity Status: Acute Assessment and Plan: Diabetic left heel ulcer. The wound is clean. There is good granulation tissue for at least 75% of the wound. I have asked [facility] nurses to look at the wound and give recommendations for treatment of the small area of slough in the central part of the wound. Application of Santyl may be an option. Continue to dress the wound daily. He may bear weight on the left heel and forefoot to assist with transfers. We will plan on following him up in the [facility]. Can see him back in clinic in 2 weeks for evaluation of the left heel wound as well as his right BKA stump. Subjective Date/time seen: 05/18/24 12:19 Interval history: Patient clinically stable today. He apparently did have extension of his stroke earlier this week. This was confirmed by Neurology. He still has some mild garbled speech and is weak on his left side. He states he still feels like he does have a right foot despite having had a right BKA. Unfortunately he is now a total Kiara lift until the plan is for him to go to assisted facility and not to acute rehab. Exam Extrem: Other: The right BKA stump is healing well. There is minimal swelling and no drainage from the incision line. Sutures in place. Flat VIRI drain was removed yesterday and the area is dry. No hematoma is noted. He is able to flex and fully extend at the knee joint to command. There is no contracture at this point. The left heel wound is clean for approximately 75% of the wound base. There is a central portion of the wound measuring about 2cm where there is some yellow slough but no bone or periosteum which was necrotic or exposed. There was some minimal serous drainage. No cellulitis is noted. Objective Data Vital Signs Vital Signs: Vital Signs - 24 hr 05/17/24 14:00 05/17/24 20:00 05/17/24 21:32 Temperature 35.8 C L 37.1 C Pulse Rate 80 81 Respiratory Rate 20 20 Blood Pressure 122/66 139/76 Pulse Oximetry 95 92 Oxygen Delivery Room Air 05/18/24 02:15 05/18/24 03:15 05/18/24 06:00 Temperature 37.6 C H 35.9 C L 35.9 C L Pulse Rate 80 Respiratory Rate 16 Blood Pressure 120/64 Pulse Oximetry 91 Oxygen Delivery 05/18/24 11:04 Temperature Pulse Rate 64 Respiratory Rate Blood Pressure Pulse Oximetry Oxygen Delivery Intake/Output Intake/Output: Intake & Output 05/15/24 05/16/24 05/17/24 05/18/24 23:59 23:59 23:59 23:59 Intake Total 340 447.5 1555.0 370 Output Total 800 1205 1800 650 Balance -460 -757.5 -245.0 -280 Meds/Results Medications: Active Medications Generic Name Dose Route Start Last Admin Trade Name Freq PRN Reason Stop Dose Admin Acetaminophen 1,000 mg 05/12/24 17:44 05/18/24 02:15 Acetaminophen 500 Mg Tablet PO 1,000 mg Q6H PRN Administration Mild Pain (1-3) or Fever Hydrocodone Bitart/Acetaminophen 2 tab 05/12/24 17:44 05/15/24 12:24 Hydrocodone/Acetaminophen (*Crx) 5-325 Mg Tablet PO 2 tab Q6H PRN Administration Pain Rated 4-6 Albuterol/Ipratropium 3 ml 05/04/24 01:39 05/17/24 08:16 Ipratropium 0.5 Mg/Albuterol Sulfate 2.5 Mg Ampul.Neb 3 Ml INHALATION 3 ml Q6HRT PRN Administration shortness of breath or wheezing Amoxicillin/Clavulanate Potassium 1 tablet 05/13/24 21:00 05/18/24 11:04 Amoxicillin/Clavulanate K 875-125 Mg Tab PO 05/21/24 21:01 1 tablet Q12HR JHOANA Administration Aspirin 325 mg 05/05/24 09:00 05/18/24 11:04 Aspirin 325 Mg Tablet PO 325 mg DAILY@0800 JHOANA Administration Atorvastatin Calcium 40 mg 05/04/24 09:00 05/18/24 11:04 Atorvastatin 40 Mg Tablet PO 40 mg DAILY JHOANA Administration Carvedilol 6.25 mg 05/15/24 21:00 05/18/24 11:04 Carvedilol 6.25 Mg Tablet PO 6.25 mg Q12HR JHOANA Administration Collagenase 1 applic 05/19/24 09:00 Collagenase Oint 30 Gm Tube TOPICAL QAM [facility] Dextrose 12.5 gm 05/04/24 01:34 Dextrose 50% 25 Gm/50 Ml Syringe IV PUSH PRN PRN Hypoglycemia Protocol Diphenhydramine HCl 12.5 mg 05/04/24 15:08 05/07/24 23:39 Diphenhydramine Hcl Elixir 12.5 Mg/5 Ml Udc PO 12.5 mg Q6H PRN Administration Itching Fentanyl Citrate 25 mcg 05/12/24 16:18 05/12/24 17:10 Fentanyl Citrate Inj (*Crx) 100 Mcg/2 Ml Vial IV PUSH 25 mcg Q2M PRN Administration Pain Folic Acid 1 mg 05/11/24 09:00 05/18/24 11:05 Folic Acid 1 Mg Tablet PO 1 mg DAILY JHOANA Administration Glucagon 1 mg 05/04/24 01:34 Glucagon For Inj 1 Mg Vial IM PRN PRN Hypoglycemia Protocol Glucose 15 gm 05/04/24 01:34 Glucose Oral Gel 15 Gm Of Glucse In 37.5 Gm Tube PO PRN PRN Hypoglycemia Protocol Guaifenesin/Dextromethorphan 10 ml 05/05/24 08:37 05/18/24 02:15 Guaifenesin/Dextromethorphan 10 Ml Udc PO 10 ml Q4H PRN Administration Cough Hydromorphone HCl 1 mg 05/12/24 17:44 05/17/24 14:06 Hydromorphone Hcl Inj (*Crx) 1 Mg/Ml Syr IV PUSH 1 mg Q3H PRN Administration Pain Rated 7-10 Dextrose 1,000 mls @ 100 mls/hr 05/04/24 01:34 Dextrose 5% 1,000 Ml IVPB PRN PRN Hypoglycemia Protocol Levetiracetam 750 mg/ Dextrose 107.5 mls @ 430 mls/hr 05/16/24 21:00 05/18/24 11:03 IVPB 430 mls/hr Q12HR JHOANA Administration Insulin Aspart 3 - 6 units 05/08/24 08:00 05/17/24 16:40 Insulin Aspart (*Bkc) 100 Units/Ml SUB-Q Not Given TIDWM JHOANA Protocol Insulin Aspart 8 units 05/09/24 17:00 05/16/24 08:39 Insulin Aspart (*Bkc) 100 Units/Ml SUB-Q 8 units TIDWM JHOANA Administration Insulin Glargine 18 units 05/17/24 21:00 05/17/24 21:35 Insulin Glargine (*Bkc) 100 Units/Ml SUB-Q 18 units HS JHOANA Administration Loratadine 10 mg 05/04/24 08:51 05/04/24 11:45 Loratadine 10 Mg Tablet PO 10 mg QAM PRN Administration itching Lorazepam 1 mg 05/16/24 10:40 Lorazepam Inj (*Crx) 2 Mg/Ml Vial IV PUSH Q6H PRN seizure like activity Montelukast Sodium 10 mg 05/10/24 21:00 05/17/24 21:34 Montelukast Sodium 10 Mg Tablet PO 10 mg HS JHOANA Administration Multi-Ingred Cream/Lotion/Oil/Oint 1 applic 05/13/24 11:45 05/18/24 11:04 Eucerin Cream 120 Gm Jar TOPICAL 1 applic DAILY JHOANA Administration Ondansetron HCl 4 mg 05/03/24 23:51 Ondansetron Inj 4 Mg/2 Ml Vial IV PUSH Q4H PRN Nausea Oxycodone HCl 5 mg 05/12/24 17:44 05/16/24 21:14 Oxycodone Hcl (*Crx) 5 Mg Tab Ir PO 5 mg Q4H PRN Administration Pain Rated 7-10 Pantoprazole Sodium 40 mg 05/14/24 09:00 05/18/24 11:04 Pantoprazole 40 Mg Tablet PO 40 mg QAM JHOANA Administration Tamsulosin HCl 0.4 mg 05/10/24 21:00 05/17/24 21:34 Tamsulosin Hcl 0.4 Mg Capsule PO 0.4 mg QHS JHOANA Administration Valsartan 40 mg 05/16/24 09:00 05/18/24 11:05 Valsartan 40 Mg Tablet PO 40 mg DAILY JHOANA Administration Radiology Results: ITS Impressions Cervical Spine CT 05/03/24 21:01 IMPRESSION: No acute fracture or traumatic malalignment in the cervical spine. Abdomen/Pelvis CT 05/03/24 21:06 IMPRESSION: No acute abdominopelvic process detected. Foot X-Ray 05/04/24 07:08 IMPRESSION: 1. Soft tissue gas in the plantar aspect of the heel. No evidence of osteomyelitis. Carotid Doppler Study 05/04/24 14:15 IMPRESSION: 1. <50% stenosis in the right internal carotid artery. 2. <50% stenosis in the left internal carotid artery. Renal Ultrasound 05/04/24 14:16 IMPRESSION: No definite abnormality. Ankle Brachial Index 05/08/24 06:55 IMPRESSION: 1. Decreased TBIs and normal ABIs, consistent with arterial occlusive disease. Note that ABIs may be overestimated if arteries are calcified. Chest X-Ray 05/09/24 13:15 IMPRESSION: 1. Mild atelectasis in right lower lung zone. Head CT 05/16/24 10:20 IMPRESSION: 1. 10% stenosis of the right carotid bulb relative to normal distal artery lumen diameter (NASCET criteria). 2. 10% stenosis of the left carotid bulb relative to normal distal artery lumen diameter. 3. Interval evolution and increased extent of a moderate-sized subacute infarct in the posterior right frontal lobe now extending medially to the falx. There are a few likely tiny thrombosed vessel centrally within the region of infarcted with surrounding peripheral luxury perfusion on the CT angiogram. 4. No interval change in additional smaller likely subacute infarct in the right parieto-occipital region and small chronic infarct in the inferior right occipital lobe. 5. Extensive nonhemodynamically significant calcified atherosclerotic plaque along the bilateral carotid siphons. No thrombosis, hemodynamically significant stenosis or aneurysm in the more central cerebral arteries including through at least the right M2 segments supplying the region of the right frontal lobe infarct. Head/Neck CTA 05/16/24 10:20 IMPRESSION: 1. 10% stenosis of the right carotid bulb relative to normal distal artery lumen diameter (NASCET criteria). 2. 10% stenosis of the left carotid bulb relative to normal distal artery lumen diameter. 3. Interval evolution and increased extent of a moderate-sized subacute infarct in the posterior right frontal lobe now extending medially to the falx. There are a few likely tiny thrombosed vessel centrally within the region of infarcted with surrounding peripheral luxury perfusion on the CT angiogram. 4. No interval change in additional smaller likely subacute infarct in the right parieto-occipital region and small chronic infarct in the inferior right occipital lobe. 5. Extensive nonhemodynamically significant calcified atherosclerotic plaque along the bilateral carotid siphons. No thrombosis, hemodynamically significant stenosis or aneurysm in the more central cerebral arteries including through at least the right M2 segments supplying the region of the right frontal lobe infarct. Modified Barium Swallow 05/17/24 09:38 IMPRESSION: Oropharyngeal dysphagia with laryngeal penetration without aspiration with multiple consistencies. Please correlate with speech pathologist findings and specific feeding recommendations. Labs Labs: Laboratory Results - last 24 hr 05/17/24 05/17/24 05/18/24 16:30 19:40 06:31 WBC RBC Hgb Hct MCV MCH MCHC RDW Plt Count MPV Immature Gran % (Auto) Neut % (Auto) Lymph % (Auto) [place] % (Auto) Eos % (Auto) Baso % (Auto) Lymph # (Auto) [place] # (Auto) Eos # (Auto) Baso # (Auto) Abs Immat Gran (auto) Absolute Neuts (auto) Absolute Nucleated RBC Nucleated RBC % Sodium 137 Potassium 4.8 Chloride 104 Carbon Dioxide 31 H Anion Gap 2 L BUN 21 H Creatinine 1.20 Estim Creat Clear Calc 80 Estimated GFR > 60 Glucose 189 H POC Capillary Glucose 195 H 186 H Calcium 9.0 05/18/24 05/18/24 05/18/24 06:32 07:54 11:34 WBC 12.9 H RBC 2.51 L Hgb 7.9 L Hct 26.2 L MCV 104.4 H MCH 31.5 MCHC 30.2 L RDW 16.0 H Plt Count 309 MPV 10.4 Immature Gran % (Auto) Not Reportable Neut % (Auto) Not Reportable Lymph % (Auto) Not Reportable [place] % (Auto) Not Reportable Eos % (Auto) Not Reportable Baso % (Auto) Not Reportable Lymph # (Auto) Not Reportable [place] # (Auto) Not Reportable Eos # (Auto) Not Reportable Baso # (Auto) Not Reportable Abs Immat Gran (auto) Not Reportable Absolute Neuts (auto) Not Reportable Absolute Nucleated RBC Not Reportable Nucleated RBC % Not Reportable Sodium Potassium Chloride Carbon Dioxide Anion Gap BUN Creatinine Estim Creat Clear Calc Estimated GFR Glucose POC Capillary Glucose 161 H 218 H Calcium
--- NOTE | 2024-05-18 12:44 | PCOTNOTE ---
Patient refused to participate in therapy services at this time, Patient states he is so exhausted, not now
[2024-05-18 13:06] LABS: Alanine Aminotransferase 25 U/L (6-50); Albumin Level 2.8 g/dL (3.5-5.1); Alkaline Phosphatase 123 U/L (38-126); Aspartate Amino Transferase 30 U/L (17-59); Bilirubin,Total 1.1 mg/dL (0.2-1.3)
[2024-05-18] MEDS: INSULIN ASPART (*BKC) 100 UNITS/ML SUB-Q (13:41)
--- NOTE | 2024-05-18 13:54 | PCPTNOTE ---
Attempted to see patient this afternoon for PT. Patient continues to be very sleepy. Patient did wake up and respond stating he just worked with Speech Therapy. Patient fell asleep during further conversation. PT will continue to follow per plan of care.
--- NOTE | 2024-05-18 14:48 | P.PNNEUR_ITS ---
Subjective Date/time seen: 05/18/24 14:48 Interval history: 63 years old with history of underlying atrial fibrillation, acute infarct involving the portion of the right middle cerebral artery and extending and extension to the falx, so recent history of the seizure. Has been started on Keppra 750mg twice a day, has undergone through [id number] amputation of the right lower extremity at present he is ready to be transferred to the rehab neurological status at present is stable and the medication can be continued as such. Objective Data Vital Signs Vital Signs: Vital Signs - 24 hr 05/17/24 20:00 05/17/24 21:32 05/18/24 02:15 Temperature 37.1 C 37.6 C H Pulse Rate 81 Respiratory Rate 20 Blood Pressure 139/76 Pulse Oximetry 92 Oxygen Delivery Room Air 05/18/24 03:15 05/18/24 06:00 05/18/24 11:04 Temperature 35.9 C L 35.9 C L Pulse Rate 80 64 Respiratory Rate 16 Blood Pressure 120/64 Pulse Oximetry 91 Oxygen Delivery 05/18/24 14:00 Temperature 36.2 C L Pulse Rate 80 Respiratory Rate 20 Blood Pressure 116/57 L Pulse Oximetry 96 Oxygen Delivery Intake/Output Intake/Output: Intake & Output 05/15/24 05/16/24 05/17/24 05/18/24 23:59 23:59 23:59 23:59 Intake Total 340 447.5 1555.0 370 Output Total 800 1205 1800 650 Balance -460 -757.5 -245.0 -280 Meds/Results Medications: Active Medications Generic Name Dose Route Start Last Admin Trade Name Freq PRN Reason Stop Dose Admin Acetaminophen 1,000 mg 05/12/24 17:44 05/18/24 02:15 Acetaminophen 500 Mg Tablet PO 1,000 mg Q6H PRN Administration Mild Pain (1-3) or Fever Hydrocodone Bitart/Acetaminophen 2 tab 05/12/24 17:44 05/15/24 12:24 Hydrocodone/Acetaminophen (*Crx) 5-325 Mg Tablet PO 2 tab Q6H PRN Administration Pain Rated 4-6 Albuterol/Ipratropium 3 ml 05/04/24 01:39 05/17/24 08:16 Ipratropium 0.5 Mg/Albuterol Sulfate 2.5 Mg Ampul.Neb 3 Ml INHALATION 3 ml Q6HRT PRN Administration shortness of breath or wheezing Amoxicillin/Clavulanate Potassium 1 tablet 05/13/24 21:00 05/18/24 11:04 Amoxicillin/Clavulanate K 875-125 Mg Tab PO 05/21/24 21:01 1 tablet Q12HR JHOANA Administration Aspirin 325 mg 05/05/24 09:00 05/18/24 11:04 Aspirin 325 Mg Tablet PO 325 mg DAILY@0800 JHOANA Administration Atorvastatin Calcium 40 mg 05/04/24 09:00 05/18/24 11:04 Atorvastatin 40 Mg Tablet PO 40 mg DAILY JHOANA Administration Carvedilol 6.25 mg 05/15/24 21:00 05/18/24 11:04 Carvedilol 6.25 Mg Tablet PO 6.25 mg Q12HR JHOANA Administration Collagenase 1 applic 05/19/24 09:00 Collagenase Oint 30 Gm Tube TOPICAL QAM [facility] Dextrose 12.5 gm 05/04/24 01:34 Dextrose 50% 25 Gm/50 Ml Syringe IV PUSH PRN PRN Hypoglycemia Protocol Diphenhydramine HCl 12.5 mg 05/04/24 15:08 05/07/24 23:39 Diphenhydramine Hcl Elixir 12.5 Mg/5 Ml Udc PO 12.5 mg Q6H PRN Administration Itching Fentanyl Citrate 25 mcg 05/12/24 16:18 05/12/24 17:10 Fentanyl Citrate Inj (*Crx) 100 Mcg/2 Ml Vial IV PUSH 25 mcg Q2M PRN Administration Pain Folic Acid 1 mg 05/11/24 09:00 05/18/24 11:05 Folic Acid 1 Mg Tablet PO 1 mg DAILY JHOANA Administration Glucagon 1 mg 05/04/24 01:34 Glucagon For Inj 1 Mg Vial IM PRN PRN Hypoglycemia Protocol Glucose 15 gm 05/04/24 01:34 Glucose Oral Gel 15 Gm Of Glucse In 37.5 Gm Tube PO PRN PRN Hypoglycemia Protocol Guaifenesin/Dextromethorphan 10 ml 05/05/24 08:37 05/18/24 02:15 Guaifenesin/Dextromethorphan 10 Ml Udc PO 10 ml Q4H PRN Administration Cough Hydromorphone HCl 1 mg 05/12/24 17:44 05/17/24 14:06 Hydromorphone Hcl Inj (*Crx) 1 Mg/Ml Syr IV PUSH 1 mg Q3H PRN Administration Pain Rated 7-10 Dextrose 1,000 mls @ 100 mls/hr 05/04/24 01:34 Dextrose 5% 1,000 Ml IVPB PRN PRN Hypoglycemia Protocol Levetiracetam 750 mg/ Dextrose 107.5 mls @ 430 mls/hr 05/16/24 21:00 05/18/24 11:03 IVPB 430 mls/hr Q12HR JHOANA Administration Insulin Aspart 3 - 6 units 05/08/24 08:00 05/18/24 13:41 Insulin Aspart (*Bkc) 100 Units/Ml SUB-Q 3 units TIDWM JHOANA Administration Protocol Insulin Aspart 8 units 05/09/24 17:00 05/16/24 08:39 Insulin Aspart (*Bkc) 100 Units/Ml SUB-Q 8 units TIDWM JHOANA Administration Insulin Glargine 18 units 05/17/24 21:00 05/17/24 21:35 Insulin Glargine (*Bkc) 100 Units/Ml SUB-Q 18 units HS JHOANA Administration Loratadine 10 mg 05/04/24 08:51 05/04/24 11:45 Loratadine 10 Mg Tablet PO 10 mg QAM PRN Administration itching Lorazepam 1 mg 05/16/24 10:40 Lorazepam Inj (*Crx) 2 Mg/Ml Vial IV PUSH Q6H PRN seizure like activity Montelukast Sodium 10 mg 05/10/24 21:00 05/17/24 21:34 Montelukast Sodium 10 Mg Tablet PO 10 mg HS JHOANA Administration Multi-Ingred Cream/Lotion/Oil/Oint 1 applic 05/13/24 11:45 05/18/24 11:04 Eucerin Cream 120 Gm Jar TOPICAL 1 applic DAILY JHOANA Administration Ondansetron HCl 4 mg 05/03/24 23:51 Ondansetron Inj 4 Mg/2 Ml Vial IV PUSH Q4H PRN Nausea Oxycodone HCl 5 mg 05/12/24 17:44 05/16/24 21:14 Oxycodone Hcl (*Crx) 5 Mg Tab Ir PO 5 mg Q4H PRN Administration Pain Rated 7-10 Pantoprazole Sodium 40 mg 05/14/24 09:00 05/18/24 11:04 Pantoprazole 40 Mg Tablet PO 40 mg QAM JHOANA Administration Rivaroxaban 20 mg 05/18/24 18:00 Rivaroxaban 20 Mg Tablet PO QPM JHOANA Tamsulosin HCl 0.4 mg 05/10/24 21:00 05/17/24 21:34 Tamsulosin Hcl 0.4 Mg Capsule PO 0.4 mg QHS JHOANA Administration Valsartan 40 mg 05/16/24 09:00 05/18/24 11:05 Valsartan 40 Mg Tablet PO 40 mg DAILY JHOANA Administration Radiology Results: ITS Impressions Cervical Spine CT 05/03/24 21:01 IMPRESSION: No acute fracture or traumatic malalignment in the cervical spine. Abdomen/Pelvis CT 05/03/24 21:06 IMPRESSION: No acute abdominopelvic process detected. Foot X-Ray 05/04/24 07:08 IMPRESSION: 1. Soft tissue gas in the plantar aspect of the heel. No evidence of osteomyelitis. Carotid Doppler Study 05/04/24 14:15 IMPRESSION: 1. <50% stenosis in the right internal carotid artery. 2. <50% stenosis in the left internal carotid artery. Renal Ultrasound 05/04/24 14:16 IMPRESSION: No definite abnormality. Ankle Brachial Index 05/08/24 06:55 IMPRESSION: 1. Decreased TBIs and normal ABIs, consistent with arterial occlusive disease. Note that ABIs may be overestimated if arteries are calcified. Chest X-Ray 05/09/24 13:15 IMPRESSION: 1. Mild atelectasis in right lower lung zone. Head CT 05/16/24 10:20 IMPRESSION: 1. 10% stenosis of the right carotid bulb relative to normal distal artery lumen diameter (NASCET criteria). 2. 10% stenosis of the left carotid bulb relative to normal distal artery lumen diameter. 3. Interval evolution and increased extent of a moderate-sized subacute infarct in the posterior right frontal lobe now extending medially to the falx. There are a few likely tiny thrombosed vessel centrally within the region of infarcted with surrounding peripheral luxury perfusion on the CT angiogram. 4. No interval change in additional smaller likely subacute infarct in the right parieto-occipital region and small chronic infarct in the inferior right occipital lobe. 5. Extensive nonhemodynamically significant calcified atherosclerotic plaque along the bilateral carotid siphons. No thrombosis, hemodynamically significant stenosis or aneurysm in the more central cerebral arteries including through at least the right M2 segments supplying the region of the right frontal lobe infarct. Head/Neck CTA 05/16/24 10:20 IMPRESSION: 1. 10% stenosis of the right carotid bulb relative to normal distal artery lumen diameter (NASCET criteria). 2. 10% stenosis of the left carotid bulb relative to normal distal artery lumen diameter. 3. Interval evolution and increased extent of a moderate-sized subacute infarct in the posterior right frontal lobe now extending medially to the falx. There are a few likely tiny thrombosed vessel centrally within the region of infarcted with surrounding peripheral luxury perfusion on the CT angiogram. 4. No interval change in additional smaller likely subacute infarct in the right parieto-occipital region and small chronic infarct in the inferior right occipital lobe. 5. Extensive nonhemodynamically significant calcified atherosclerotic plaque along the bilateral carotid siphons. No thrombosis, hemodynamically significant stenosis or aneurysm in the more central cerebral arteries including through at least the right M2 segments supplying the region of the right frontal lobe infarct. Modified Barium Swallow 05/17/24 09:38 IMPRESSION: Oropharyngeal dysphagia with laryngeal penetration without aspiration with multiple consistencies. Please correlate with speech pathologist findings and specific feeding recommendations. Labs Labs: Laboratory Results - last 24 hr 05/17/24 05/17/24 05/18/24 16:30 19:40 06:31 WBC RBC Hgb Hct MCV MCH MCHC RDW Plt Count MPV Immature Gran % (Auto) Neut % (Auto) Lymph % (Auto) [place] % (Auto) Eos % (Auto) Baso % (Auto) Lymph # (Auto) [place] # (Auto) Eos # (Auto) Baso # (Auto) Abs Immat Gran (auto) Absolute Neuts (auto) Absolute Nucleated RBC Nucleated RBC % Sodium 137 Potassium 4.8 Chloride 104 Carbon Dioxide 31 H Anion Gap 2 L BUN 21 H Creatinine 1.20 Estim Creat Clear Calc 80 Estimated GFR > 60 Glucose 189 H POC Capillary Glucose 195 H 186 H Calcium 9.0 Total Bilirubin 1.1 AST 30 ALT 25 Alkaline Phosphatase 123 Total Protein 7.0 Albumin 2.8 L 05/18/24 05/18/24 05/18/24 06:32 07:54 11:34 WBC 12.9 H RBC 2.51 L Hgb 7.9 L Hct 26.2 L MCV 104.4 H MCH 31.5 MCHC 30.2 L RDW 16.0 H Plt Count 309 MPV 10.4 Immature Gran % (Auto) Not Reportable Neut % (Auto) Not Reportable Lymph % (Auto) Not Reportable [place] % (Auto) Not Reportable Eos % (Auto) Not Reportable Baso % (Auto) Not Reportable Lymph # (Auto) Not Reportable [place] # (Auto) Not Reportable Eos # (Auto) Not Reportable Baso # (Auto) Not Reportable Abs Immat Gran (auto) Not Reportable Absolute Neuts (auto) Not Reportable Absolute Nucleated RBC Not Reportable Nucleated RBC % Not Reportable Sodium Potassium Chloride Carbon Dioxide Anion Gap BUN Creatinine Estim Creat Clear Calc Estimated GFR Glucose POC Capillary Glucose 161 H 218 H Calcium Total Bilirubin AST ALT Alkaline Phosphatase Total Protein Albumin
--- NOTE | 2024-05-18 15:11 | PCNFU ---
Nutrition Follow-Up Complete: Swallowing Difficulties as related to Acute CVA as evidenced by NPO Meet estimated nutritional needs. - Progressing. Continue with same goal Goal: Pt current nutrition is Diabetic consitent carbs, puree L4, moderately thickened L3 liquids. Intakes 30% since diet was changed to current . Glucerna BID for additional 220 kcal and 10 g protein each Nutrition recommendation: Pt does not like puree diet with thickened liquids. Will try nutritional ice cream to encourage intakes Last recorded weight is 140.6 kg. Bowel Motility: +2 BM 05/18 Labs Reviewed: Hgb 7.9, Hct 26.2, Alb 2.8, BUN 21, Glu 189 Meds Noted: Vancomycin Skin: Vascular wounds, no pressure Additional Notes: Working with speech therapy. Got changed to puree diet with L3 liquids and does not like this. Will try nutritional ice cream. Was eating 90-100% prior to puree diet. Will monitor weight, labs, skin, meds, diet orders every 3 days.
[2024-05-18 16:44] LABS: Glucose Point of Care 161 mg/dl (65-105)
[2024-05-18] MEDS: HYDROGEN PEROXIDE 3% SOLN(*SP) 473 ML BOTTLE (16:52)
[2024-05-18] MEDS: RIVAROXABAN 20 MG TABLET PO (16:52)
[2024-05-18] MEDS: TAMSULOSIN HCL 0.4 MG CAPSULE PO (20:56)
[2024-05-18] MEDS: INSULIN GLARGINE (*BKC) 100 UNITS/ML 18 UNITS SUB-Q (20:58)
[2024-05-18] MEDS: MONTELUKAST SODIUM 10 MG TABLET PO (21:06)
[2024-05-18 21:17] LABS: Glucose Point of Care 175 mg/dl (65-105)
[2024-05-19 00:20] LABS: IFOB Positive Control Positive; Immunochemical Fecal Occult Bl Positive (N)
[2024-05-19] MEDS: HYDROcodone/acetaminophen (*CRX) 5-325 MG TABLET 2 TAB PO (04:39)
[2024-05-19 05:05] VITALS: BP 128/78; PULSE 77; RESP 16; TEMP 36.6; O2SAT 95
--- NOTE | 2024-05-19 08:00 | PM.IMPN ---
Progress Note: A&P Assessment and Plan (1) Sepsis: Code(s): A41.9 - Sepsis, unspecified organism Status: Acute Assessment and Plan: Patient presented with altered mental status, fevers to 105? F, elevated lactic acid of 5.3, and tachycardia. Patient was given 30 mL/kg IV fluid bolus. Repeat lactic was 1.8. Mild elevation in troponin is likely related to ischemic demand as patient denies any chest pain. EKG did not show any ST elevations which showed paced rhythm He was treated with sodium bicarb. 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 Repeat blood culture negative. Literature review shows G. morbillorum was 'very susceptible to all the beta-lactam agents (SOLOMON<1mcg/ml) except for cefoxitin'. Another article stated 'No strain was resistant to beta-lactams and vancomycin'. Discontinued cefepime and vancomycin and was switched to linezolid and Zosyn Did not require any pressors. Right forefoot abscess wound culture grew Bacteroides, MSSA and Streptococcus constellatus. Now s/p Rt BKA on 05/[address] Ta. Linezolid stopped 05/10. Zosyn changed to Augmentin 05/13. Plan was to treat for 10 days from source control (amputation) for bacteremia and left heel wound WBC trending down. No fevers. Continue abx. (2) Seizure: Code(s): R56.9 - Unspecified convulsions Status: Acute Assessment and Plan: Patient with seizure like activity and worsening left UE and facial paresis/paralysis. He is off his Xarelto due to his surgery. He is on full ASA and Lipitor. CT head and CTA head/neck - discussed with radiology: no large thrombosis and appears imaging findings showing interval evolution of prior CVA Keppra added. Neuro consulted and appreciate their input. Clinically better and returning to previous baseline. Speech performed MBS showing he can have Pureed Level 4 with thickened Level 3 liquids. Diet resumed Check EEG. Continue seizure precautions. Continue Keppra. 05/18: resumed patients xarelto (3) Acute CVA (cerebrovascular accident): Code(s): I63.9 - Cerebral infarction, unspecified Status: Acute Assessment and Plan: Patient presented on 05/03 with altered mental status, noted to have some facial droop and weakness. Patient was found on the floor with altered mental status. Head CT showed acute infarct involving a portion of the right MCA territory. No MRI since he has a PM Patient was not a candidate for tPA as last well known time is unavailable Carotid ultrasound less than 50% narrowing on both sides Echo was technically difficult with normal LV size but reduced fxn (EF 40-45%), LVH, normal RV fxn, negative bubble and mild valvular disease. (Echo 2019 showing EF 50%). Continue statin, aspirin. We restarted ARB and Coreg Resumed Xarelto; prior to resuming medication discussed with neuro Dr. Hopper PT/OT Neurology consulted and appreciate their input (4) Diabetic foot ulcer: Qualifiers: Diabetes mellitus type: type 2 Diabetic foot ulcer location: midfoot Laterality: right Non-pressure ulcer stage: with muscle involvement without evidence of necrosis Qualified Code(s): E11.621 - Type 2 diabetes mellitus with foot ulcer; L97.415 - Non-pressure chronic ulcer of right heel and midfoot with muscle involvement without evidence of necrosis Code(s): E11.621 - Type 2 diabetes mellitus with foot ulcer; L97.509 - Non-pressure chronic ulcer of other part of unspecified foot with unspecified severity Status: Acute Assessment and Plan: Patient has bilateral diabetic foot ulcers R>L. Left foot x-ray showed no evidence of osteomyelitis Right foot x-ray showed soft tissue gas in the plantar aspect of the heel, no evidence of osteomyelitis Right food culture: bacteroides thetaiotaomicron, staph aureus, strep constellatus pansensitive Surgery consulted and status post debridement 05/06/2024; bone is exposed to the right heel Patient underwent Extensive sharp scalpel excisional debridement of skin, subcutaneous tissue, fascia, and periosteum of the bilateral heel wounds and right plantar forefoot wound 05/[address] Ta. Patient underwent right BKA 05/[address] Ta. Continue routine post-op wound care. PT/OT. VIRI drain removed 05/17. Continue routine dressing changes to the left heel. (5) Acute kidney injury: Code(s): N17.9 - Acute kidney failure, unspecified Status: Acute Assessment and Plan: Patient presented with acute kidney injury on admission with Cr 3.40. Baseline creatinine is 0.90-1.40 in 2020. Probably NANY with CKD. NANY related to HoTN, home meds (ARB, Lasix) and sepsis. CKD related to HTN, DM. Received IV fluids and albumin for volume expansion. CK levels peaked at 735 and now trending down CT scan Abd/Pelvis did not show any hydronephrosis. Renal ultrasound with no acute abnormality Cr trending down to 1.2 felt to be at baseline. ARB resumed at low dose and tolerating this well. Monitor urine output, renal function and electrolytes. Nephrology following and appreciate their input (6) Type 2 diabetes mellitus: Code(s): E11.9 - Type 2 diabetes mellitus without complications Status: Acute Assessment and Plan: A1c 8.4%. Glucose reasonable Continue AccuCheks covering with sliding scale. Hypoglycemia protocol available as needed. Diet as above. Resume lantus only at lower dose; continue to hold meal time insulin. Continue to follow. (7) Rhabdomyolysis: Qualifiers: Rhabdomyolysis type: non-traumatic Qualified Code(s): M62.82 - Rhabdomyolysis Code(s): M62.82 - Rhabdomyolysis Status: Acute Assessment and Plan: Patient rolled off his couch and was on the floor for unknown amount of time Elevated CK levels to 735 -> 359 CK levels trending down (8) Parkinsons disease: Code(s): G20 - Parkinson's disease Status: Acute Assessment and Plan: History of Parkinson's disease Not on treatment Follow. Continue PT/OT (9) Hypertension: Code(s): I10 - Essential (primary) hypertension Status: Acute Assessment and Plan: Blood pressure remains well controlled. Will monitor closely. (10) Asthma: Code(s): J45.909 - Unspecified asthma, uncomplicated Status: Acute Assessment and Plan: Patient was complaining of dry cough and wheezing. He states he has a history of asthma and takes inhaler p.r.n. Patient started on bronchodilators. Symptoms better. Will de-escalate nebs to prn. Follow (11) Anemia: Code(s): D64.9 - Anemia, unspecified Status: Acute Assessment and Plan: Hgb was 10.8 on admission but quickly dropped to 8-9 range. B12/folate normal. Iron studies consistent with chronic disease Possibly related to his renal disease. He was also on Xarelto on admission Hgb dropped to 7 range post surgey but remaining stable. Follow and transfuse as needed. (12) S/P BKA (below knee amputation): Code(s): Z89.519 - Acquired absence of unspecified leg below knee Status: Acute Assessment and Plan: As above Plan DVT prophylaxis: SCDs Code Status: Do not resuscitate Subjective Date/time seen: 05/19/24 08:00 Interval history: 63-year-old male with past medical history of systolic congestive heart failure gout, Parkinson's, essential hypertension, atrial flutter, cardiac pacemaker, coronary artery disease with cardiac stent, and chronic anticoagulation who presented to the ER from home via EMS after being found down on the floor and confused. Review of Systems Review of Systems: All systems reviewed & are unremarkable except as noted in HPI and below Exam Narrative: AF HR General: male in no acute respiratory distress who is nontoxic appearing, lying semi recumbent in bed. HEENT: Normocephalic. Atraumatic. Extraocular movement intact. Sclera clear and anicteric. Slight left facial droop. Chest: Lungs are clear to auscultation bilaterally. No wheezes or crackles. CV: Heart was regular rate and rhythm. S1/S2. No murmurs, gallops, or rubs. Abd: Abdomen was soft. Nontender. Nondistended. Positive bowel sounds. No organomegaly or masses. Ext: No clubbing, cyanosis, or edema. 2+ DP pulses bilaterally. Neuro: Patient is alert and oriented x3 (person, place, year). Upper extremity weakness to the left with night cleaner, push and pulls. Cranial nerves 2-12 are intact. Speech is clear. Objective Data Vital Signs Vital Signs: Vital Signs - 24 hr 05/18/24 11:04 05/18/24 14:00 05/18/24 20:00 Temperature 97.1 F L Pulse Rate 64 80 Respiratory Rate 20 Blood Pressure 116/57 L Pulse Oximetry 96 Oxygen Delivery Room Air 05/18/24 20:56 05/18/24 22:00 05/19/24 05:05 Temperature 97.4 F L 97.8 F Pulse Rate 80 80 77 Respiratory Rate 20 16 Blood Pressure 127/68 128/78 Pulse Oximetry 95 95 Oxygen Delivery Intake/Output Intake/Output: Intake & Output 05/16/24 05/17/24 05/18/24 05/19/24 23:59 23:59 23:59 23:59 Intake Total 447.5 1555.0 645.0 240 Output Total 1205 1800 1200 550 Balance -757.5 -245.0 -555.0 -310 Meds/Results Medications: Active Medications Generic Name Dose Route Start Last Admin Trade Name Freq PRN Reason Stop Dose Admin Acetaminophen 1,000 mg 05/12/24 17:44 05/18/24 02:15 Acetaminophen 500 Mg Tablet PO 1,000 mg Q6H PRN Administration Mild Pain (1-3) or Fever Hydrocodone Bitart/Acetaminophen 2 tab 05/12/24 17:44 05/19/24 04:39 Hydrocodone/Acetaminophen (*Crx) 5-325 Mg Tablet PO 2 tab Q6H PRN Administration Pain Rated 4-6 Albuterol/Ipratropium 3 ml 05/04/24 01:39 05/17/24 08:16 Ipratropium 0.5 Mg/Albuterol Sulfate 2.5 Mg Ampul.Neb 3 Ml INHALATION 3 ml Q6HRT PRN Administration shortness of breath or wheezing Amoxicillin/Clavulanate Potassium 1 tablet 05/13/24 21:00 05/18/24 20:56 Amoxicillin/Clavulanate K 875-125 Mg Tab PO 05/21/24 21:01 1 tablet Q12HR JHOANA Administration Aspirin 325 mg 05/05/24 09:00 05/18/24 11:04 Aspirin 325 Mg Tablet PO 325 mg DAILY@0800 JHOANA Administration Atorvastatin Calcium 40 mg 05/04/24 09:00 05/18/24 11:04 Atorvastatin 40 Mg Tablet PO 40 mg DAILY JHOANA Administration Carvedilol 6.25 mg 05/15/24 21:00 05/18/24 20:56 Carvedilol 6.25 Mg Tablet PO 6.25 mg Q12HR JHOANA Administration Collagenase 1 applic 05/19/24 09:00 Collagenase Oint 30 Gm Tube TOPICAL QAM JHOANA Dextrose 12.5 gm 05/04/24 01:34 Dextrose 50% 25 Gm/50 Ml Syringe IV PUSH PRN PRN Hypoglycemia Protocol Diphenhydramine HCl 12.5 mg 05/04/24 15:08 05/07/24 23:39 Diphenhydramine Hcl Elixir 12.5 Mg/5 Ml Udc PO 12.5 mg Q6H PRN Administration Itching Fentanyl Citrate 25 mcg 05/12/24 16:18 05/12/24 17:10 Fentanyl Citrate Inj (*Crx) 100 Mcg/2 Ml Vial IV PUSH 25 mcg Q2M PRN Administration Pain Folic Acid 1 mg 05/11/24 09:00 05/18/24 11:05 Folic Acid 1 Mg Tablet PO 1 mg DAILY JHOANA Administration Glucagon 1 mg 05/04/24 01:34 Glucagon For Inj 1 Mg Vial IM PRN PRN Hypoglycemia Protocol Glucose 15 gm 05/04/24 01:34 Glucose Oral Gel 15 Gm Of Glucse In 37.5 Gm Tube PO PRN PRN Hypoglycemia Protocol Guaifenesin/Dextromethorphan 10 ml 05/05/24 08:37 05/18/24 02:15 Guaifenesin/Dextromethorphan 10 Ml Udc PO 10 ml Q4H PRN Administration Cough Hydromorphone HCl 1 mg 05/12/24 17:44 05/17/24 14:06 Hydromorphone Hcl Inj (*Crx) 1 Mg/Ml Syr IV PUSH 1 mg Q3H PRN Administration Pain Rated 7-10 Dextrose 1,000 mls @ 100 mls/hr 05/04/24 01:34 Dextrose 5% 1,000 Ml IVPB PRN PRN Hypoglycemia Protocol Levetiracetam 750 mg/ Dextrose 107.5 mls @ 430 mls/hr 05/16/24 21:00 05/18/24 21:15 IVPB Infused Q12HR JHOANA Infusion Insulin Aspart 3 - 6 units 05/08/24 08:00 05/18/24 17:52 Insulin Aspart (*Bkc) 100 Units/Ml SUB-Q Not Given TIDWM [facility] Protocol Insulin Aspart 8 units 05/09/24 17:00 05/16/24 08:39 Insulin Aspart (*Bkc) 100 Units/Ml SUB-Q 8 units TIDWM JHOANA Administration Insulin Glargine 18 units 05/17/24 21:00 05/18/24 20:58 Insulin Glargine (*Bkc) 100 Units/Ml SUB-Q 18 units HS JHOANA Administration Loratadine 10 mg 05/04/24 08:51 05/04/24 11:45 Loratadine 10 Mg Tablet PO 10 mg QAM PRN Administration itching Lorazepam 1 mg 05/16/24 10:40 Lorazepam Inj (*Crx) 2 Mg/Ml Vial IV PUSH Q6H PRN seizure like activity Montelukast Sodium 10 mg 05/10/24 21:00 05/18/24 21:06 Montelukast Sodium 10 Mg Tablet PO 10 mg HS JHOANA Administration Multi-Ingred Cream/Lotion/Oil/Oint 1 applic 05/13/24 11:45 05/18/24 11:04 Eucerin Cream 120 Gm Jar TOPICAL 1 applic DAILY JHOANA Administration Ondansetron HCl 4 mg 05/03/24 23:51 Ondansetron Inj 4 Mg/2 Ml Vial IV PUSH Q4H PRN Nausea Oxycodone HCl 5 mg 05/12/24 17:44 05/16/24 21:14 Oxycodone Hcl (*Crx) 5 Mg Tab Ir PO 5 mg Q4H PRN Administration Pain Rated 7-10 Pantoprazole Sodium 40 mg 05/14/24 09:00 05/18/24 11:04 Pantoprazole 40 Mg Tablet PO 40 mg QAM JOHANA Administration Rivaroxaban 20 mg 05/18/24 18:00 05/18/24 16:52 Rivaroxaban 20 Mg Tablet PO 20 mg QPM JHOANA Administration Tamsulosin HCl 0.4 mg 05/10/24 21:00 05/18/24 20:56 Tamsulosin Hcl 0.4 Mg Capsule PO 0.4 mg QHS JHOANA Administration Valsartan 40 mg 05/16/24 09:00 05/18/24 11:05 Valsartan 40 Mg Tablet PO 40 mg DAILY JHOANA Administration Radiology Results: ITS Impressions Cervical Spine CT 05/03/24 21:01 IMPRESSION: No acute fracture or traumatic malalignment in the cervical spine. Abdomen/Pelvis CT 05/03/24 21:06 IMPRESSION: No acute abdominopelvic process detected. Foot X-Ray 05/04/24 07:08 IMPRESSION: 1. Soft tissue gas in the plantar aspect of the heel. No evidence of osteomyelitis. Carotid Doppler Study 05/04/24 14:15 IMPRESSION: 1. <50% stenosis in the right internal carotid artery. 2. <50% stenosis in the left internal carotid artery. Renal Ultrasound 05/04/24 14:16 IMPRESSION: No definite abnormality. Ankle Brachial Index 05/08/24 06:55 IMPRESSION: 1. Decreased TBIs and normal ABIs, consistent with arterial occlusive disease. Note that ABIs may be overestimated if arteries are calcified. Chest X-Ray 05/09/24 13:15 IMPRESSION: 1. Mild atelectasis in right lower lung zone. Head CT 05/16/24 10:20 IMPRESSION: 1. 10% stenosis of the right carotid bulb relative to normal distal artery lumen diameter (NASCET criteria). 2. 10% stenosis of the left carotid bulb relative to normal distal artery lumen diameter. 3. Interval evolution and increased extent of a moderate-sized subacute infarct in the posterior right frontal lobe now extending medially to the falx. There are a few likely tiny thrombosed vessel centrally within the region of infarcted with surrounding peripheral luxury perfusion on the CT angiogram. 4. No interval change in additional smaller likely subacute infarct in the right parieto-occipital region and small chronic infarct in the inferior right occipital lobe. 5. Extensive nonhemodynamically significant calcified atherosclerotic plaque along the bilateral carotid siphons. No thrombosis, hemodynamically significant stenosis or aneurysm in the more central cerebral arteries including through at least the right M2 segments supplying the region of the right frontal lobe infarct. Head/Neck CTA 05/16/24 10:20 IMPRESSION: 1. 10% stenosis of the right carotid bulb relative to normal distal artery lumen diameter (NASCET criteria). 2. 10% stenosis of the left carotid bulb relative to normal distal artery lumen diameter. 3. Interval evolution and increased extent of a moderate-sized subacute infarct in the posterior right frontal lobe now extending medially to the falx. There are a few likely tiny thrombosed vessel centrally within the region of infarcted with surrounding peripheral luxury perfusion on the CT angiogram. 4. No interval change in additional smaller likely subacute infarct in the right parieto-occipital region and small chronic infarct in the inferior right occipital lobe. 5. Extensive nonhemodynamically significant calcified atherosclerotic plaque along the bilateral carotid siphons. No thrombosis, hemodynamically significant stenosis or aneurysm in the more central cerebral arteries including through at least the right M2 segments supplying the region of the right frontal lobe infarct. Modified Barium Swallow 05/17/24 09:38 IMPRESSION: Oropharyngeal dysphagia with laryngeal penetration without aspiration with multiple consistencies. Please correlate with speech pathologist findings and specific feeding recommendations. Labs Labs: Laboratory Results - last 24 hr 05/18/24 05/18/24 05/18/24 06:31 06:32 07:54 Immature Gran % (Auto) Not Reportable Neut % (Auto) Not Reportable Lymph % (Auto) Not Reportable [place] % (Auto) Not Reportable Eos % (Auto) Not Reportable Baso % (Auto) Not Reportable Lymph # (Auto) Not Reportable [place] # (Auto) Not Reportable Eos # (Auto) Not Reportable Baso # (Auto) Not Reportable Abs Immat Gran (auto) Not Reportable Absolute Neuts (auto) Not Reportable Absolute Nucleated RBC Not Reportable Nucleated RBC % Not Reportable Sodium 137 Potassium 4.8 Chloride 104 Carbon Dioxide 31 H Anion Gap 2 L BUN 21 H Creatinine 1.20 Estim Creat Clear Calc 80 Estimated GFR > 60 Glucose 189 H POC Capillary Glucose 161 H Calcium 9.0 Total Bilirubin 1.1 AST 30 ALT 25 Alkaline Phosphatase 123 Total Protein 7.0 Albumin 2.8 L Stl Occult Blood (IFOB) 05/18/24 05/18/24 05/18/24 11:34 16:34 20:23 Immature Gran % (Auto) Neut % (Auto) Lymph % (Auto) [place] % (Auto) Eos % (Auto) Baso % (Auto) Lymph # (Auto) [place] # (Auto) Eos # (Auto) Baso # (Auto) Abs Immat Gran (auto) Absolute Neuts (auto) Absolute Nucleated RBC Nucleated RBC % Sodium Potassium Chloride Carbon Dioxide Anion Gap BUN Creatinine Estim Creat Clear Calc Estimated GFR Glucose POC Capillary Glucose 218 H 161 H 175 H Calcium Total Bilirubin AST ALT Alkaline Phosphatase Total Protein Albumin Stl Occult Blood (IFOB) 05/18/24 23:57 Immature Gran % (Auto) Neut % (Auto) Lymph % (Auto) [place] % (Auto) Eos % (Auto) Baso % (Auto) Lymph # (Auto) [place] # (Auto) Eos # (Auto) Baso # (Auto) Abs Immat Gran (auto) Absolute Neuts (auto) Absolute Nucleated RBC Nucleated RBC % Sodium Potassium Chloride Carbon Dioxide Anion Gap BUN Creatinine Estim Creat Clear Calc Estimated GFR Glucose POC Capillary Glucose Calcium Total Bilirubin AST ALT Alkaline Phosphatase Total Protein Albumin Stl Occult Blood (IFOB) Positive H Quality VTE Prophylaxis VTE prophylaxis: pharmacologic ordered
[2024-05-19 08:39] LABS: Glucose Point of Care 133 mg/dl (65-105)
[2024-05-19 08:46] LABS: Basophils Absolute Auto 0.1 K/mm3 (0.0-0.1); Basophils Percent Auto 0.7 % (0.2-1.2); Eosinophils Absolute Auto 0.2 K/mm3 (0-0.3); Eosinophils Percent Auto 2.5 % (0-4.4); Hematocrit 25.5 % (42.0-52.0); Hemoglobin 7.7 g/dL (14.0-18.0); Immature Granulocyte Absolute 0.04 K/mm3 (0.00-0.031); Immature Granulocyte Percent A 0.5 % (0-0.5); Lymphocytes Percent Auto 14.1 % (18.3-44.2); Mean Corpuscular HGB Conc 30.2 g/dl (32-36); Mean Corpuscular Hemoglobin 31.4 pg (26-34); Mean Corpuscular Volume 104.1 fl (80-100); Mean Platelet Volume 10.1 fl (7.4-10.4); Monocytes Absolute Auto 0.8 K/mm3 (0.1-0.6); Monocytes Percent Auto 8.8 % (2.6-8.5); Neutrophils Absolute Auto 6.2 K/mm3 (1.3-6.7); Neutrophils Percent Auto 73.4 % (45.5-73.1); Platelet Count Result 310 k/mm3 (150-375); Red Blood Count 2.45 M/mm3 (4.6-6.20); Red Cell Distribution Width 16.1 % (11.5-14.5); White Blood Count 8.5 K/mm3 (4.5-10.0)
[2024-05-19 08:57] LABS: Alanine Aminotransferase 22 U/L (6-50); Albumin Level 2.8 g/dL (3.5-5.1); Alkaline Phosphatase 116 U/L (38-126); Anion Gap 2 mmol/L (4-12); Aspartate Amino Transferase 27 U/L (17-59); Bilirubin,Total 1.1 mg/dL (0.2-1.3); Blood Urea Nitrogen 18 mg/dL (9-20); Calcium 8.9 mg/dL (8.4-10.2); Carbon Dioxide 31 mmol/L (22-30); Chloride 107 mmol/L (98-107); Estimated CRCL calculation 88 ml/min; Estimated Glomerular Filt Rate > 60; Glucose 141 mg/dL (65-110); Potassium 4.3 mmol/L (3.4-5.0); Sodium 140 mmol/L (137-145)
[2024-05-19] MEDS: ATORVASTATIN 40 MG TABLET PO (09:30)
[2024-05-19] MEDS: AMOXICILLIN/CLAVULANATE K 875-125 MG TAB 1 TABLET PO (09:30)
[2024-05-19] MEDS: VALSARTAN 40 MG TABLET PO (09:30)
[2024-05-19] MEDS: ASPIRIN 325 MG TABLET PO (09:30)
[2024-05-19 09:31] VITALS: PULSE 84
[2024-05-19] MEDS: levETIRAcetam IV 750 MG in DEXTROSE 5% 100 ML 430 MG IVPB (09:31)
[2024-05-19] MEDS: carvediloL 6.25 MG TABLET PO (09:31)
[2024-05-19] MEDS: PANTOPRAZOLE 40 MG TABLET PO (09:31)
[2024-05-19] MEDS: EUCERIN CREAM 120 GM JAR 1 APPLIC TOPICAL (09:31)
[2024-05-19] MEDS: FOLIC ACID 1 MG TABLET PO (09:31)
--- NOTE | 2024-05-19 10:23 | PCOTNOTE ---
Attempted to see Patient 2 times this A.M. Patient refuses all activity. Patient verbalized, I'm tired leave me alone, not today . I'm done . RN notified and aware. Patient states the only thing I want is regular water .
[2024-05-19 11:35] LABS: SARS-CoV-2 RNA PCR Negative (Negative)
[2024-05-19] MEDS: COLLAGENASE OINT 30 GM TUBE 1 APPLIC TOPICAL (11:40)
[2024-05-19 12:14] LABS: Glucose Point of Care 184 mg/dl (65-105)
--- NOTE | 2024-05-19 13:08 | PM.PNGS ---
Progress Note: A&P Assessment and Plan (1) Status post below knee amputation of right lower extremity: Code(s): Z89.511 - Acquired absence of right leg below knee Status: Acute Assessment and Plan: The right BKA stump is healing well. Sutures are in place. Continue wrapping the end the stump and keeping it elevated. Can use the knee immobilizer to keep him for any contracture. Continue PT and OT while here in the hospital and when he eventually goes to long-term facility. Will plan on bringing him [facility] for f/u with Dr. Ta in about 2 weeks for removal of the sutures. After that time, then we can consider having of stump small engine specialist placed and then if appropriate evaluation for fitting of a prosthesis if he can recover enough from his stroke to be able to rehab with a right below-knee amputation prosthesis. He has been accepted to SNF and will hopefully discharge today, which is okay from a surgical standpoint. (2) Ulcer of left heel: Code(s): L97.429 - Non-pressure chronic ulcer of left heel and midfoot with unspecified severity Status: Acute Assessment and Plan: Diabetic left heel ulcer. The wound is clean. There is good granulation tissue for at least 75% of the wound. Continue local wound care with Santyl dressing changes to the central area of the wound where he has slough in the center of the wound bed for enzymatic debridement. He may bear weight on the left heel and forefoot to assist with transfers. We will plan on following him up in the [facility]. Can see him back in clinic in 2 weeks for evaluation of the left heel wound as well as his right BKA stump. Plan I have discussed the patient's case and plan of care with Dr. Ta. Subjective Subjective Date/Time Seen: 05/19/24 13:08 Post Op day: 7 (Right BKA) Patient reports: no new complaints, tolerating a regular diet, flatus, bowel movement and afebrile Interval history: Patient's only complaint today is regarding his thickened liquids, which he does not like drinking. No complaints of pain. No acute events overnight per nursing. Exam Narrative: Right BKA stump with dressing dry and intact. No flexion contracture, able to fully extend knee and have some active ROM of flexion of the right knee. Knee immobilizer not in place, I have asked nursing to apply the knee immobilizer and make sure this goes with him to his long-term facility. Left heel wound with dressing dry and intact Const: General: comfortable and no acute distress Objective Data Vital Signs Vital Signs: Vital Signs - 24 hr 05/18/24 14:00 05/18/24 20:00 05/18/24 20:56 Temperature 97.1 F L Pulse Rate 80 80 Respiratory Rate 20 Blood Pressure 116/57 L Pulse Oximetry 96 Oxygen Delivery Room Air 05/18/24 22:00 05/19/24 05:05 05/19/24 09:31 Temperature 97.4 F L 97.8 F Pulse Rate 80 77 84 Respiratory Rate 20 16 Blood Pressure 127/68 128/78 Pulse Oximetry 95 95 Oxygen Delivery Intake/Output Intake/Output: Intake & Output 05/16/24 05/17/24 05/18/24 05/19/24 23:59 23:59 23:59 23:59 Intake Total 447.5 1555.0 645.0 240 Output Total 1205 1800 1200 550 Balance -757.5 -245.0 -555.0 -310 Meds/Results Medications: Active Medications Generic Name Dose Route Start Last Admin Trade Name Freq PRN Reason Stop Dose Admin Acetaminophen 1,000 mg 05/12/24 17:44 05/18/24 02:15 Acetaminophen 500 Mg Tablet PO 1,000 mg Q6H PRN Administration Mild Pain (1-3) or Fever Hydrocodone Bitart/Acetaminophen 2 tab 05/12/24 17:44 05/19/24 04:39 Hydrocodone/Acetaminophen (*Crx) 5-325 Mg Tablet PO 2 tab Q6H PRN Administration Pain Rated 4-6 Albuterol/Ipratropium 3 ml 05/04/24 01:39 05/17/24 08:16 Ipratropium 0.5 Mg/Albuterol Sulfate 2.5 Mg Ampul.Neb 3 Ml INHALATION 3 ml Q6HRT PRN Administration shortness of breath or wheezing Amoxicillin/Clavulanate Potassium 1 tablet 05/13/24 21:00 05/19/24 09:30 Amoxicillin/Clavulanate K 875-125 Mg Tab PO 05/21/24 21:01 1 tablet Q12HR JHOANA Administration Aspirin 325 mg 05/05/24 09:00 05/19/24 09:30 Aspirin 325 Mg Tablet PO 325 mg DAILY@0800 JHOANA Administration Atorvastatin Calcium 40 mg 05/04/24 09:00 05/19/24 09:30 Atorvastatin 40 Mg Tablet PO 40 mg DAILY JHOANA Administration Carvedilol 6.25 mg 05/15/24 21:00 05/19/24 09:31 Carvedilol 6.25 Mg Tablet PO 6.25 mg Q12HR JHOANA Administration Collagenase 1 applic 05/19/24 09:00 Collagenase Oint 30 Gm Tube TOPICAL QAM JHOANA Dextrose 12.5 gm 05/04/24 01:34 Dextrose 50% 25 Gm/50 Ml Syringe IV PUSH PRN PRN Hypoglycemia Protocol Diphenhydramine HCl 12.5 mg 05/04/24 15:08 05/07/24 23:39 Diphenhydramine Hcl Elixir 12.5 Mg/5 Ml Udc PO 12.5 mg Q6H PRN Administration Itching Fentanyl Citrate 25 mcg 05/12/24 16:18 05/12/24 17:10 Fentanyl Citrate Inj (*Crx) 100 Mcg/2 Ml Vial IV PUSH 25 mcg Q2M PRN Administration Pain Folic Acid 1 mg 05/11/24 09:00 05/19/24 09:31 Folic Acid 1 Mg Tablet PO 1 mg DAILY JHOANA Administration Glucagon 1 mg 05/04/24 01:34 Glucagon For Inj 1 Mg Vial IM PRN PRN Hypoglycemia Protocol Glucose 15 gm 05/04/24 01:34 Glucose Oral Gel 15 Gm Of Glucse In 37.5 Gm Tube PO PRN PRN Hypoglycemia Protocol Guaifenesin/Dextromethorphan 10 ml 05/05/24 08:37 05/18/24 02:15 Guaifenesin/Dextromethorphan 10 Ml Udc PO 10 ml Q4H PRN Administration Cough Hydromorphone HCl 1 mg 05/12/24 17:44 05/17/24 14:06 Hydromorphone Hcl Inj (*Crx) 1 Mg/Ml Syr IV PUSH 1 mg Q3H PRN Administration Pain Rated 7-10 Dextrose 1,000 mls @ 100 mls/hr 05/04/24 01:34 Dextrose 5% 1,000 Ml IVPB PRN PRN Hypoglycemia Protocol Levetiracetam 750 mg/ Dextrose 107.5 mls @ 430 mls/hr 05/16/24 21:00 05/19/24 09:31 IVPB 430 mls/hr Q12HR JHOANA Administration Insulin Aspart 3 - 6 units 05/08/24 08:00 05/19/24 12:44 Insulin Aspart (*Bkc) 100 Units/Ml SUB-Q Not Given TIDWM [facility] Protocol Insulin Aspart 8 units 05/09/24 17:00 05/16/24 08:39 Insulin Aspart (*Bkc) 100 Units/Ml SUB-Q 8 units TIDWM JHOANA Administration Insulin Glargine 18 units 05/17/24 21:00 05/18/24 20:58 Insulin Glargine (*Bkc) 100 Units/Ml SUB-Q 18 units HS JHOANA Administration Loratadine 10 mg 05/04/24 08:51 05/04/24 11:45 Loratadine 10 Mg Tablet PO 10 mg QAM PRN Administration itching Lorazepam 1 mg 05/16/24 10:40 Lorazepam Inj (*Crx) 2 Mg/Ml Vial IV PUSH Q6H PRN seizure like activity Montelukast Sodium 10 mg 05/10/24 21:00 05/18/24 21:06 Montelukast Sodium 10 Mg Tablet PO 10 mg HS JHOANA Administration Multi-Ingred Cream/Lotion/Oil/Oint 1 applic 05/13/24 11:45 05/18/24 11:04 Eucerin Cream 120 Gm Jar TOPICAL 1 applic DAILY JHOANA Administration Ondansetron HCl 4 mg 05/03/24 23:51 Ondansetron Inj 4 Mg/2 Ml Vial IV PUSH Q4H PRN Nausea Oxycodone HCl 5 mg 05/12/24 17:44 05/16/24 21:14 Oxycodone Hcl (*Crx) 5 Mg Tab Ir PO 5 mg Q4H PRN Administration Pain Rated 7-10 Pantoprazole Sodium 40 mg 05/14/24 09:00 05/19/24 09:31 Pantoprazole 40 Mg Tablet PO 40 mg QAM JHOANA Administration Rivaroxaban 20 mg 05/18/24 18:00 05/18/24 16:52 Rivaroxaban 20 Mg Tablet PO 20 mg QPM JHOANA Administration Tamsulosin HCl 0.4 mg 05/10/24 21:00 05/18/24 20:56 Tamsulosin Hcl 0.4 Mg Capsule PO 0.4 mg QHS JHOANA Administration Valsartan 40 mg 05/16/24 09:00 05/19/24 09:30 Valsartan 40 Mg Tablet PO 40 mg DAILY JHOANA Administration Radiology Results: ITS Impressions Cervical Spine CT 05/03/24 21:01 IMPRESSION: No acute fracture or traumatic malalignment in the cervical spine. Abdomen/Pelvis CT 05/03/24 21:06 IMPRESSION: No acute abdominopelvic process detected. Foot X-Ray 05/04/24 07:08 IMPRESSION: 1. Soft tissue gas in the plantar aspect of the heel. No evidence of osteomyelitis. Carotid Doppler Study 05/04/24 14:15 IMPRESSION: 1. <50% stenosis in the right internal carotid artery. 2. <50% stenosis in the left internal carotid artery. Renal Ultrasound 05/04/24 14:16 IMPRESSION: No definite abnormality. Ankle Brachial Index 05/08/24 06:55 IMPRESSION: 1. Decreased TBIs and normal ABIs, consistent with arterial occlusive disease. Note that ABIs may be overestimated if arteries are calcified. Chest X-Ray 05/09/24 13:15 IMPRESSION: 1. Mild atelectasis in right lower lung zone. Head CT 05/16/24 10:20 IMPRESSION: 1. 10% stenosis of the right carotid bulb relative to normal distal artery lumen diameter (NASCET criteria). 2. 10% stenosis of the left carotid bulb relative to normal distal artery lumen diameter. 3. Interval evolution and increased extent of a moderate-sized subacute infarct in the posterior right frontal lobe now extending medially to the falx. There are a few likely tiny thrombosed vessel centrally within the region of infarcted with surrounding peripheral luxury perfusion on the CT angiogram. 4. No interval change in additional smaller likely subacute infarct in the right parieto-occipital region and small chronic infarct in the inferior right occipital lobe. 5. Extensive nonhemodynamically significant calcified atherosclerotic plaque along the bilateral carotid siphons. No thrombosis, hemodynamically significant stenosis or aneurysm in the more central cerebral arteries including through at least the right M2 segments supplying the region of the right frontal lobe infarct. Head/Neck CTA 05/16/24 10:20 IMPRESSION: 1. 10% stenosis of the right carotid bulb relative to normal distal artery lumen diameter (NASCET criteria). 2. 10% stenosis of the left carotid bulb relative to normal distal artery lumen diameter. 3. Interval evolution and increased extent of a moderate-sized subacute infarct in the posterior right frontal lobe now extending medially to the falx. There are a few likely tiny thrombosed vessel centrally within the region of infarcted with surrounding peripheral luxury perfusion on the CT angiogram. 4. No interval change in additional smaller likely subacute infarct in the right parieto-occipital region and small chronic infarct in the inferior right occipital lobe. 5. Extensive nonhemodynamically significant calcified atherosclerotic plaque along the bilateral carotid siphons. No thrombosis, hemodynamically significant stenosis or aneurysm in the more central cerebral arteries including through at least the right M2 segments supplying the region of the right frontal lobe infarct. Modified Barium Swallow 05/17/24 09:38 IMPRESSION: Oropharyngeal dysphagia with laryngeal penetration without aspiration with multiple consistencies. Please correlate with speech pathologist findings and specific feeding recommendations. Labs Labs: Laboratory Results - last 24 hr 05/18/24 05/18/24 05/18/24 16:34 20:23 23:57 WBC RBC Hgb Hct MCV MCH MCHC RDW Plt Count MPV Immature Gran % (Auto) Neut % (Auto) Lymph % (Auto) [place] % (Auto) Eos % (Auto) Baso % (Auto) Lymph # (Auto) [place] # (Auto) Eos # (Auto) Baso # (Auto) Abs Immat Gran (auto) Absolute Neuts (auto) Absolute Nucleated RBC Nucleated RBC % Sodium Potassium Chloride Carbon Dioxide Anion Gap BUN Creatinine Estim Creat Clear Calc Estimated GFR Glucose POC Capillary Glucose 161 H 175 H Calcium Total Bilirubin AST ALT Alkaline Phosphatase Total Protein Albumin Stl Occult Blood (IFOB) Positive H SARS-CoV-2 RNA (RT-PCR) 05/19/24 05/19/24 05/19/24 08:26 08:35 10:49 WBC 8.5 RBC 2.45 L Hgb 7.7 L Hct 25.5 L MCV 104.1 H MCH 31.4 MCHC 30.2 L RDW 16.1 H Plt Count 310 MPV 10.1 Immature Gran % (Auto) 0.5 Neut % (Auto) 73.4 H Lymph % (Auto) 14.1 L [place] % (Auto) 8.8 H Eos % (Auto) 2.5 Baso % (Auto) 0.7 Lymph # (Auto) 1.20 [place] # (Auto) 0.8 H Eos # (Auto) 0.2 Baso # (Auto) 0.1 Abs Immat Gran (auto) 0.04 H Absolute Neuts (auto) 6.2 Absolute Nucleated RBC 0.000 Nucleated RBC % 0.0 Sodium 140 Potassium 4.3 Chloride 107 Carbon Dioxide 31 H Anion Gap 2 L BUN 18 Creatinine 1.10 Estim Creat Clear Calc 88 Estimated GFR > 60 Glucose 141 H POC Capillary Glucose 133 H Calcium 8.9 Total Bilirubin 1.1 AST 27 ALT 22 Alkaline Phosphatase 116 Total Protein 7.0 Albumin 2.8 L Stl Occult Blood (IFOB) SARS-CoV-2 RNA (RT-PCR) Negative 05/19/24 12:00 WBC RBC Hgb Hct MCV MCH MCHC RDW Plt Count MPV Immature Gran % (Auto) Neut % (Auto) Lymph % (Auto) [place] % (Auto) Eos % (Auto) Baso % (Auto) Lymph # (Auto) [place] # (Auto) Eos # (Auto) Baso # (Auto) Abs Immat Gran (auto) Absolute Neuts (auto) Absolute Nucleated RBC Nucleated RBC % Sodium Potassium Chloride Carbon Dioxide Anion Gap BUN Creatinine Estim Creat Clear Calc Estimated GFR Glucose POC Capillary Glucose 184 H Calcium Total Bilirubin AST ALT Alkaline Phosphatase Total Protein Albumin Stl Occult Blood (IFOB) SARS-CoV-2 RNA (RT-PCR)
--- NOTE | 2024-05-19 13:17 | P.DS_ITS ---
DS: Admitting Diagnosis Discharge Date 05/19/2024 Admitting Diagnosis Sepsis seizure acute cva diabetic foot ulcer NANY DM Rhabdomyolysis parkinsons hypertension asthma anemia s/p right BKA DS: Discharge Diagnosis Discharge Diagnosis (1) Sepsis: Code(s): A41.9 - Sepsis, unspecified organism Status: Acute (2) Seizure: Code(s): R56.9 - Unspecified convulsions Status: Acute (3) Acute CVA (cerebrovascular accident): Code(s): I63.9 - Cerebral infarction, unspecified Status: Acute (4) Diabetic foot ulcer: Qualifiers: Diabetes mellitus type: type 2 Diabetic foot ulcer location: midfoot Laterality: right Non-pressure ulcer stage: with muscle involvement without evidence of necrosis Qualified Code(s): E11.621 - Type 2 diabetes mellitus with foot ulcer; L97.415 - Non-pressure chronic ulcer of right heel and midfoot with muscle involvement without evidence of necrosis Code(s): E11.621 - Type 2 diabetes mellitus with foot ulcer; L97.509 - Non-pressure chronic ulcer of other part of unspecified foot with unspecified severity Status: Acute (5) Acute kidney injury: Code(s): N17.9 - Acute kidney failure, unspecified Status: Acute (6) Type 2 diabetes mellitus: Code(s): E11.9 - Type 2 diabetes mellitus without complications Status: Acute (7) Rhabdomyolysis: Qualifiers: Rhabdomyolysis type: non-traumatic Qualified Code(s): M62.82 - Rhabdomyolysis Code(s): M62.82 - Rhabdomyolysis Status: Acute (8) Parkinsons disease: Code(s): G20 - Parkinson's disease Status: Acute (9) Hypertension: Code(s): I10 - Essential (primary) hypertension Status: Acute (10) Asthma: Code(s): J45.909 - Unspecified asthma, uncomplicated Status: Acute (11) Anemia: Code(s): D64.9 - Anemia, unspecified Status: Acute (12) S/P BKA (below knee amputation): Code(s): Z89.519 - Acquired absence of unspecified leg below knee Status: Acute DS: Summary Hospital Course Reason for hospitalization: Sepsis seizure acute cva diabetic foot ulcer NANY DM Rhabdomyolysis parkinsons hypertension asthma anemia s/p right BKA Hospital Course: 63-year-old male with past medical history of systolic congestive heart failure gout, Parkinson's, essential hypertension, atrial flutter, cardiac pacemaker, co ronary artery disease with cardiac stent, and chronic anticoagulation who presented to the hospital from home via EMS after being found down on the floor and confused. Patient was meeting sepsis criteria on admission with AMS, febrile (105), elevated lactic of 5.3 and tachycardia. CK elevated from rhabdomyolysis. Started on IV antibiotics. He received sepsis fluid boluses and latic and CK returned to normal. He did have a slight elevation in troponin as well however this was likely related to ischemic demand as patient denied chest pain and no ST elevations were seen on EKG. Sepsis was likely secondary to patients bilateral diabetic foot ulcers R>L. A left foot xr showed no osteomyelitis, but the right foot xr showed soft tissue gas in the plantar aspect of the heel, no evidence of osteomyelitis. ABIs showed Decreased TBIs and normal ABIs, consistent with arterial occlusive disease. Right food culture grew bacteroides thetaiotaomicron, staph aureus, strep constellatus pansensitive. Blood cultures grew gemella morbillorum. Surgery consulted. Patient underwent Extensive sharp scalpel excisional debridement of skin, subcutaneous tissue, fascia, and periosteum of the bilateral heel wounds and right plantar forefoot wound 05/06 then a right BKA on 05/[address] Ta. At time of discharge patient was transitioned to oral antibiotics to complete the course. He is to follow up with dr. ta in the office and continue dressing changes as detailed in discharge instructions. At time of admission he did have some facial droop and weakness which led to a CT head being obtained which showed acute infarct involving a portion of the right MCA territory. No MRI since he has a PM and patient was not a candidate for tPA as he had an unknown last known well. Neurology was consulted. Carotid US showed less than 50% narrowing on both sides. Echo showed LVEF 40-45% with negative bubble. He was off his Xarelto due to his surgery.. He was on full ASA and Lipitor. On 05/16 patient had seizure like activity with worsening left UE and facial paresis/paralysis. Possible seizure vs new thrombotic CVA. Repeat CT and CTA head/neck ordered showed interval evolution and increased extent of a moderate-sized subacute infarct in the posterior right frontal lobe now extending medially to the falx and no interval change in additional smaller likely subacute infarct in the right parieto-occipital region and small chronic infarct in the inferior right occipital lobe. EEG unremarkable. Patient started on keppra. Patient to follow up with neurology in the outpatient setting. At time of discharge patient has no complaints denying chest pain, shortness of breath, nausea/vomiting and abdominal pain. Patient discharged to SNF in a stable condition. He is to follow up with his PCP, surgery, and neurology as scheduled. Status at Discharge Functional status at discharge: uses cane/walker Time Spent with Patient Time attestation: Total time spent providing and/or coordinating discharge services: Time spent: Greater than 30 minutes Exam Narrative: AF HR 77 RR 16 Spo2 95 BP 128/78 General: male in no acute respiratory distress who is nontoxic appearing, lying semi recumbent in bed. HEENT: Normocephalic. Atraumatic. Extraocular movement intact. Sclera clear and anicteric. Slight left facial droop. Chest: Lungs are clear to auscultation bilaterally. No wheezes or crackles. CV: Heart was regular rate and rhythm. S1/S2. No murmurs, gallops, or rubs. Abd: Abdomen was soft. Nontender. Nondistended. Positive bowel sounds. No o rganomegaly or masses. Ext: No clubbing, cyanosis, or edema. 2+ DP pulses bilaterally. Right BKA with dressing in place. Left foot with clean/dry intact dressing. Neuro: Patient is alert and oriented x3 (person, place, year). Upper extremity weakness to the left with director business integration, push and pulls. Cranial nerves 2-12 are intact. Speech is clear. DS: Data Data Completed and Pending Completed studies during hospitalization: MBS head neck cta chest xr bradley chest xr renal us carotid doppler foot xr foot xr abdomen/pelvis ct chest xr c spine ct head ct Pending studies at discharge: Pending at discharge 05/12/24 14:56 Surgical [PTH] Routine Labs on day of discharge: Labs from last 24 hours 05/19/24 05/19/24 05/19/24 12:00 10:49 08:35 WBC 8.5 RBC 2.45 L Hgb 7.7 L Hct 25.5 L MCV 104.1 H MCH 31.4 MCHC 30.2 L RDW 16.1 H Plt Count 310 MPV 10.1 Immature Gran % (Auto) 0.5 Neut % (Auto) 73.4 H Lymph % (Auto) 14.1 L Woodward % (Auto) 8.8 H Eos % (Auto) 2.5 Baso % (Auto) 0.7 Lymph # (Auto) 1.20 Woodward # (Auto) 0.8 H Eos # (Auto) 0.2 Baso # (Auto) 0.1 Abs Immat Gran (auto) 0.04 H Absolute Neuts (auto) 6.2 Absolute Nucleated RBC 0.000 Nucleated RBC % 0.0 Sodium 140 Potassium 4.3 Chloride 107 Carbon Dioxide 31 H Anion Gap 2 L BUN 18 Creatinine 1.10 Estim Creat Clear Calc 88 Estimated GFR > 60 Glucose 141 H POC Capillary Glucose 184 H Calcium 8.9 Total Bilirubin 1.1 AST 27 ALT 22 Alkaline Phosphatase 116 Total Protein 7.0 Albumin 2.8 L Stl Occult Blood (IFOB) SARS-CoV-2 RNA (RT-PCR) Negative 05/19/24 05/18/24 05/18/24 08:26 23:57 20:23 WBC RBC Hgb Hct MCV MCH MCHC RDW Plt Count MPV Immature Gran % (Auto) Neut % (Auto) Lymph % (Auto) Woodward % (Auto) Eos % (Auto) Baso % (Auto) Lymph # (Auto) Woodward # (Auto) Eos # (Auto) Baso # (Auto) Abs Immat Gran (auto) Absolute Neuts (auto) Absolute Nucleated RBC Nucleated RBC % Sodium Potassium Chloride Carbon Dioxide Anion Gap BUN Creatinine Estim Creat Clear Calc Estimated GFR Glucose POC Capillary Glucose 133 H 175 H Calcium Total Bilirubin AST ALT Alkaline Phosphatase Total Protein Albumin Stl Occult Blood (IFOB) Positive H SARS-CoV-2 RNA (RT-PCR) 05/18/24 16:34 WBC RBC Hgb Hct MCV MCH MCHC RDW Plt Count MPV Immature Gran % (Auto) Neut % (Auto) Lymph % (Auto) Woodward % (Auto) Eos % (Auto) Baso % (Auto) Lymph # (Auto) Woodward # (Auto) Eos # (Auto) Baso # (Auto) Abs Immat Gran (auto) Absolute Neuts (auto) Absolute Nucleated RBC Nucleated RBC % Sodium Potassium Chloride Carbon Dioxide Anion Gap BUN Creatinine Estim Creat Clear Calc Estimated GFR Glucose POC Capillary Glucose 161 H Calcium Total Bilirubin AST ALT Alkaline Phosphatase Total Protein Albumin Stl Occult Blood (IFOB) SARS-CoV-2 RNA (RT-PCR) Discharge Plan Discharge Attending physician on discharge: Casey Gibson Consulting providers: Willem Moon; French Hopper; Dionicio Ta; Belkis Ventura; Lo Tuttle; Peewee Vargas; Alex Munoz; Rut Cárdenas; Ren Dobbins; Samuel Remy; Arvin Edgar; Sung Cortez; Noe Rubio; Sg Thomson; Jaiden Red Jr.; Pippa Salinas; Byron Ta; Luis Alfredo Langford; Mike Reynolds V.; Hermilo Ford; Bryce León Discharging Clinician: Odalys Patiño Anticipated Discharge Date/Time: 05/19/24 13:17 Patient Disposition: SNF Activity: as tolerated Diet: as tolerated, diabetic and other - see discharge instructions Discharge Instructions: Discharge disposition: Patient septic with diabetic foot ulcers Patient underwent extensive sharp scalpel excisional debridement of skin, subcutaneous tissue, fascia, and periosteum of the bilateral heel wounds and right plantar forefoot wound 05/[address] Ta. Patient underwent right BKA 05/[address] Ta. Discharge instructions per surgery: Wound Care to Left Heel: Daily apply Santyl ointment to wound bed, cover with adaptic, ABD pad and roll gauze. Continue wrapping the end the stump and keeping it elevated. Can use the knee immobilizer to keep him for any contracture. He may bear weight on the left heel and forefoot to assist with transfers. Continue antibiotic, Augmentin 1 tablet twice a day. Course to be completed on 05/21. Attached is information on this medication. Patient to see Dr. Ta at the [facility] on Friday June 07, 2024 at 9:00AM. Please arrive to Hospital Entrance 1(main lobby) by 8:30AM, as you must go through Registration. Registration is located to the left of the main lobby doors. Once Registered and have paperwork, use the elevators in the same lobby to the 2nd floor. Once on the 2nd floor, follow signs for the Wound Center. Please contact [phone] for any questions regarding appointment. Further discharge instructions: Patient diagnosed with a right sided stroke with left sided deficits Take all medications as prescribed even if feeling better Aspirin, atorvastatin, coreg, valsartan, and xarelto Eat well balanced meals and stay hydrated Strict bleeding precautions since you are being started on Xarelto including shaving with an electric razor, holding pressure for greater than 20 minutes for injury, protection of had with any falls, etc. Patient also had seizure like activity during admission Started on keppra, attached is information on this medication Speech evaluated patient, continue pureed level 4 with thickened level 3 liquids Follow-up with neurology Change positions slowly taking a break in between each position change Patient is newly requiring insulin for his diabetes management Started on 18 units lantus HS Monitor POC glucose levels Monitor blood pressures Take caution while standing, rising, or moving Change positions slowly taking a break between each position change If you standing feel dizzy sat back down and take a break Patient had a slight kidney injury during admission Eat well balanced meals and stay hydrated Keep active to remain strong Avoid use of diapers or pads Good maurilio Care every 2 hours Trend urine output Encouraged to continue with yearly vaccinations Return to the emergency department if he developed sudden shortness of breath, chest pain, nausea, vomiting, upset stomach or intractable diarrhea Return to the emergency department if you develop fever greater than 101.5 Follow-up with the primary care physician within 1-2 weeks Thank you for choosing [facility] for your healthcare needs Patient Instructions: Amoxicillin/Clavulanate Potassium (By mouth), Insulin Glargine (By injection), Rivaroxaban (By mouth), Heart Failure (GEN), Pain Management (DC), Hypoglycemia in a Person with Diabetes (DC), Ischemic Stroke (DC), Blood Thinners (DC), Below the Knee Amputation (DC), What to Do if Your Blood Sugar is Low (DC), High Troponin Levels (GEN) Patient Language: Tamazight Stand Alone Forms: General Discharge Information, Fpc Discharge Follow-up/Referrals: Treasure Johns NP [Primary Care Provider] - 1 Week French Hopper MD [Physician] - Call for Appointment Dionicio Ta MD [Physician] - 06/07/24 9:00 am (At the [facility]) Discharge Medications: New aspirin 325 mg Tablet 325 mg PO DAILY@0800 Qty: 30 0RF carvedilol [Coreg] 6.25 mg Tablet 6.25 mg PO Q12HR Qty: 60 0RF valsartan [Diovan] 40 mg Tablet 40 mg PO DAILY Qty: 30 0RF levetiracetam [Keppra] 750 mg tablet 750 mg PO BID Qty: 60 0RF amoxicillin-pot clavulanate 875-125 mg tablet 1 tablet PO Q12H Qty: 5 0RF insulin glargine [Lantus U-100 Insulin] 100 unit/mL Solution 18 unit subcut HS Qty: 10 0RF Continued Xarelto 20 mg tablet 20 mg PO DAILY Rx Instructions: must administer with evening meal albuterol sulfate 90 mcg/actuation HFA aerosol inhaler 1 puff inhalation Q4H PRN (Reason: shortness of breath or wheezing) Qty: 25.5 3RF triamcinolone acetonide 0.1 % cream 1 applic topical BID Qty: 454 11RF Rx Instructions: use 2x/day for 5 out of 7 days, then use Eucerin 2x/day for remaining 2 days of the week. metformin 1,000 mg tablet 1,000 mg PO BID Qty: 180 3RF Rx Instructions: with meals folic acid 1 mg tablet 1 mg PO DAILY Qty: 90 3RF furosemide 40 mg tablet 40 mg PO DAILY Qty: 30 11RF montelukast 10 mg tablet 10 mg PO HS Qty: 30 11RF cetirizine 10 mg tablet 10 mg PO DAILY Qty: 90 3RF ipratropium-albuterol 0.5 mg-3 mg(2.5 mg base)/3 mL solution for nebulization 3 ml inhalation QID PRN (Reason: shortness of breath or wheezing) Qty: 360 3RF potassium chloride 20 mEq tablet,ER particles/crystals 20 meq PO DAILY Qty: 90 3RF tamsulosin 0.4 mg capsule 0.4 mg PO QHS Qty: 90 3RF allopurinol 100 mg tablet 200 mg PO DAILY Qty: 180 1RF Changed atorvastatin 20 mg Tablet 40 mg PO DAILY 30 Days Qty: 60 0RF Discontinued diltiazem HCl 90 mg tablet 90 mg PO BID Rx Instructions: per sourcing consultant doxycycline hyclate 100 mg tablet 100 mg PO DAILY Qty: 20 0RF valsartan 320 mg tablet 320 mg PO DAILY Qty: 90 3RF carvedilol 25 mg tablet 50 mg PO Q12H Qty: 360 3RF Rx Instructions: must administer with a meal/food Date of admission: 05/04/24 11:24 Primary Care Provider: Treasure Johns Admitting Provider: Chantell James Attending physician on admission: Odalys Patiño Condition: Stable Hospitalist MIPS Heart Failure (Exclusion) Patient has history of Heart Transplant or Left Ventricular Assistive Device?: No IF YES, STOP HERE Heart Failure (Qualifier) Patient has current or prior documentation of LVEF less than or equal to 40%, or mod/servere depressed LVSF?: No IF NO, STOP HERE
--- NOTE | 2024-05-19 13:56 | PCOTNOTE ---
Attempted OT treatment session again this afternoon. Patient in bed awake with family present. Patient refuses to participate in any activities, states he is done and just wants to be left alone. Patient's family also discussing the importance of activity and movement so that he can get better. Patient declines. Per RN, Patient is supposed to be being discharged to a care facility.
[2024-05-19 17:13] LABS: Glucose Point of Care 225 mg/dl (65-105)
[2024-05-19] MEDS: RIVAROXABAN 20 MG TABLET PO (17:24)
[2024-05-19] MEDS: INSULIN ASPART (*BKC) 100 UNITS/ML SUB-Q (17:25)
--- NOTE | 2024-05-19 18:40 | WPDNEUROLOGY ---
Neurology EEG Report General Information Date of Study: 05/19/24 DIAGNOSIS New onset seizure, CVA CONDITION OF RECORDING bedside recording EEG NUMBER [id number] CLINICAL HISTORY patient has had a surgery had a seizure-like activity 2 days thereafter. There is also a history of right CVA with left-sided weakness. EEG DESCRIPTION During wakefulness the background activity consists of posterior dominant rhythm in alpha range at 8 hertz with an amplitude of 15-30 microvolts which appears poorly organized. Anteriorly low amplitude mixed frequency activity was seen. There is no significant anteroposterior gradient. During drowsiness attenuation of background activity was seen. Hyperventilation or photic stimulation were not performed. Stage 2 sleep was not recorded. IMPRESSION This is a normal EEG obtained during awake and drowsy states.
== END 2024-05-19 18:42 | DRG 853 ==
LOC: ANHED 23:54 → ANHICU 05-04 00:37 → ANHIMU 05-05 13:15 → ANH3MEDSUR 05-09 20:01
PROVIDERS: Internal Medicine; Internal Medicine Nephrology; Nurse Practitioner Family; Surgery; Admitting Provider Internal Medicine; Emergency Provider Emergency Medicine; PCP Nurse Practitioner Family; Visit Provider Student in an Organized Health Care Education/Training Program
PROC: 0KBW0ZZ Excision of Left Foot Muscle, Open Approach (ICD-10-PCS; principal; 2024-05-06 07:30)
PROC: 0Y6H0Z2 Detachment at Right Lower Leg, Mid, Open Approach (ICD-10-PCS; CPT 27882; principal; 2024-05-12 15:00)
DX: A41.89 Other specified sepsis (principal); I63.511 Cerebral infarction due to unspecified occlusion or stenosis of right middle cerebral artery; R65.21 Severe sepsis with septic shock; N17.9 Acute kidney failure, unspecified; M62.82 Rhabdomyolysis; L97.415 Non-pressure chronic ulcer of right heel and midfoot with muscle involvement without evidence of necrosis; L97.429 Non-pressure chronic ulcer of left heel and midfoot with unspecified severity; E11.52 Type 2 diabetes mellitus with diabetic peripheral angiopathy with gangrene; I96 Gangrene, not elsewhere classified; N13.8 Other obstructive and reflux uropathy; I48.20 Chronic atrial fibrillation, unspecified; G81.94 Hemiplegia, unspecified affecting left nondominant side; L02.612 Cutaneous abscess of left foot; L02.611 Cutaneous abscess of right foot; M86.9 Osteomyelitis, unspecified; L97.519 Non-pressure chronic ulcer of other part of right foot with unspecified severity; I87.2 Venous insufficiency (chronic) (peripheral); I12.9 Hypertensive chronic kidney disease with stage 1 through stage 4 chronic kidney disease, or unspecified chronic kidney disease; E11.22 Type 2 diabetes mellitus with diabetic chronic kidney disease; E11.621 Type 2 diabetes mellitus with foot ulcer; E11.42 Type 2 diabetes mellitus with diabetic polyneuropathy; E11.69 Type 2 diabetes mellitus with other specified complication; R56.9 Unspecified convulsions; R47.02 Dysphasia; Z20.822 Contact with and (suspected) exposure to COVID-19; I25.10 Atherosclerotic heart disease of native coronary artery without angina pectoris; E53.8 Deficiency of other specified B group vitamins; E78.5 Hyperlipidemia, unspecified; N18.31 Chronic kidney disease, stage 3a; R79.89 Other specified abnormal findings of blood chemistry; J45.909 Unspecified asthma, uncomplicated; N40.1 Benign prostatic hyperplasia with lower urinary tract symptoms; G20.A1 Parkinson's disease without dyskinesia, without mention of fluctuations; M10.9 Gout, unspecified; H26.9 Unspecified cataract; F32.A Depression, unspecified; F17.210 Nicotine dependence, cigarettes, uncomplicated; F41.9 Anxiety disorder, unspecified; Z11.52 Encounter for screening for COVID-19; Z79.01 Long term (current) use of anticoagulants; Z95.0 Presence of cardiac pacemaker; Z95.5 Presence of coronary angioplasty implant and graft; Z87.442 Personal history of urinary calculi
CPT/HCPCS: 36415; 36600; 70450; 70496; 70498; 71045; 72125; 73620; 74176; 76775; 80048; 80053; 80069; 80307; 81001; 82077; 82274; 82550; 82570; 82607; 82728; 82746; 82805; 82948; 83036; 83540; 83550; 83605; 83735; 83880; 84100; 84133; 84145; 84300; 84484; 85014; 85018; 85025; 85027; 85610; 85730; 85999; 86140; 86704; 86706; 86850; 86900; 86901; 87040; 87070; 87075; 87076; 87077; 87181; 87205; 87340; 87635; 87637; 87641; 88307; 88311; 92526; 92610; 92611; 93005; 93880; 93922; 94640; 95816; 96361; 96365; 96366; 96367; 96375; 97110; 97161; 97162; 97165; 97166; 97530; 97535; 99285; A9270; C8929; G0378; J0692; J1171; J1200; J1741; J1815; J1940; J1953; J2003; J2004; J2020; J2405; J2470; J2543; J2704; J3010; J3370; J3475; J7030; J7120; L1830; P9047; Q9957; Q9967

== ENCOUNTER 2024-06-07 10:07 | Emergency (ER) | payer MEDICARE, MEDICAID, SELFPAY ==
[2024-06-07] VITALS (15 sets, daily range): BP systolic 63–122; BP diastolic 45–83; PULSE 80; RESP 12–220; TEMP 36.4; O2SAT 94–99
--- NOTE | ~2024-06-07 | XR_ITS ---
Clinical Indication: Seizure, weakness AP and lateral views of the chest: Comparison: 05/09/2024 Findings: The lungs are clear, without evidence of focal consolidation or pleural effusion. Cardiome diastinal silhouette is stable, with pacemaker device. Bones and soft tissues are unremarkable. Impression: Clear lungs. Reviewed, dictated and finalized at location . DRESSER Impression: Clear lungs.
--- NOTE | ~2024-06-07 | CT_ITS ---
CT head without contrast Indication: Seizure COMPARISON: 05/16/2024 Technique: Serial scans were obtained through the brain without the administration of contrast. Dose reduction technique was used on this scan by utilizing automated exposure control and iterative recon struction technique. The dose-length product (DLP) was 605.33 mGy-cm. Findings: There is no evidence of intracranial hemorrhage, mass lesion, or acute infarct. The ventri cles and subarachnoid spaces are dilated, consistent with mild atrophy. Hypodensity extensively invol ving the right frontal lobe is compatible with evolving infarct. There is no evidence of edema, mass effect or midline shift. The visualized paranasal sinuses and mastoid air cells are clear. Impression: No intracranial hemorrhage, mass, or acute infarct. Evolving chronic right frontal lobe infarct. Reviewed, dictated and finalized at [facility]. [facility] Impression: No intracranial hemorrhage, mass, or acute infarct. Evolving chronic right frontal lobe infarct.
--- NOTE | 2024-06-07 10:32 | ECG_ITS ---
Test Date: 2024-06-07 10:32:06 Measurements Intervals [place] Rate: 80 P: 0 IL: 0 QRS: -56 QRSD: 183 T: 90 QT: 475 QTc: 548 Interpretive Statements ELECTRONIC VENTRICULAR PACEMAKER ABNORMAL RHYTHM ECG Compared to ECG 05/16/2024 10:40:20 Atrial-paced complex(es) or rhythm no longer present Electronically Signed On 06-07-2024 22:45:51 RUBBING BED OPERATOR by Franco Fung M.D.
[2024-06-07 10:43] LABS: Basophils Absolute Auto 0.1 K/mm3 (0.0-0.1); Basophils Percent Auto 1.4 % (0.2-1.2); Eosinophils Absolute Auto 0.2 K/mm3 (0-0.3); Eosinophils Percent Auto 2.7 % (0-4.4); Hematocrit 34.1 % (42.0-52.0); Hemoglobin 10.8 g/dL (14.0-18.0); Immature Granulocyte Absolute 0.03 K/mm3 (0.00-0.031); Immature Granulocyte Percent A 0.4 % (0-0.5); Lymphocytes Absolute Auto 2.61 K/mm3 (0.9-3.2); Lymphocytes Percent Auto 33.6 % (18.3-44.2); Mean Corpuscular HGB Conc 31.7 g/dl (32-36); Mean Corpuscular Volume 100.9 fl (80-100); Mean Platelet Volume 10.3 fl (7.4-10.4); Monocytes Absolute Auto 0.5 K/mm3 (0.1-0.6); Neutrophils Absolute Auto 4.3 K/mm3 (1.3-6.7); Neutrophils Percent Auto 54.9 % (45.5-73.1); Platelet Count Result 352 k/mm3 (150-375); Red Blood Count 3.38 M/mm3 (4.6-6.20); White Blood Count 7.8 K/mm3 (4.5-10.0)
[2024-06-07 10:53] LABS: Alanine Aminotransferase 14 U/L (6-50); Albumin Level 3.4 g/dL (3.5-5.1); Alkaline Phosphatase 161 U/L (38-126); Anion Gap 6 mmol/L (4-12); Aspartate Amino Transferase 25 U/L (17-59); Bilirubin,Total 1.6 mg/dL (0.2-1.3); Blood Urea Nitrogen 18 mg/dL (9-20); Calcium 9.4 mg/dL (8.4-10.2); Carbon Dioxide 26 mmol/L (22-30); Chloride 107 mmol/L (98-107); Estimated CRCL calculation 63 ml/min; Estimated Glomerular Filt Rate > 60; Glucose 87 mg/dL (65-110); Potassium 3.7 mmol/L (3.4-5.0); Sodium 139 mmol/L (137-145)
[2024-06-07] MEDS: SODIUM CHLORIDE 0.9% IV 500 ML 999 ML IV CONT (13:37)
--- NOTE | 2024-06-07 13:44 | ED_ITS ---
HPI - Seizure General Chief Complaint: Seizure Stated Complaint: seizure Time Seen by Provider: 06/07/24 12:07 History of Present Illness HPI Narrative: Patient is a 63-year-old male who presents ER with a possible seizure. He was and wound care having some sutures removed from his right lower extremity stump when his head fell backwards in his eyes rolled back. He was unconscious for 10-20 seconds. The nurse felt the slightest twitching in his left hand and possibly his left leg. Patient with recent CVA with seizure and has been started on Keppra 750 mg twice a day. No previous surgical history. patient reports feeling dizzy. He had no chest pain or racing heart. No nausea vomiting. Has no complaints at this time. Seizure History: Yes Related Data Home Medications ?Medication ?Instructions ?Recorded ?Confirmed ?Last Taken ?Type rivaroxaban 20 mg tablet (Xarelto) 20 mg PO DAILY 07/17/22 06/07/24 Unknown History Allergies Allergy/AdvReac Type Severity Reaction Status Date / Time No Known Allergies Allergy Verified 06/07/24 11:06 Review of Systems 2 Review of Systems: All systems reviewed & are unremarkable except as noted in HPI and below Constitutional: Constitutional: Reports no additional constitutional complaints ENT: Reports system reviewed and no additional complaints, except as documented Cardiovascular: Cardiovascular: Reports no additional cardiovascular complaints Respiratory: Respiratory: Reports no additional respiratory complaints Neurologic: Reports system reviewed and no additional complaints, except as documented [facility] Past Medical History Medical History Anxiety Asthma Bilateral cataracts Maturing BPH loc w urin obs/LUTS Cellulitis of right lower extremity Chronic atrial fibrillation Coronary artery disease involving telida heart without angina pectoris Depression Diabetic foot ulcer Diabetic peripheral neuropathy Dyslipidemia Essential hypertension Folate deficiency Gout Hyperlipidemia Kidney stones Parkinsons disease Right-sided cerebrovascular accident (CVA) Seasonal allergies Stasis dermatitis Type 2 diabetes mellitus Uncontrolled hypertension Surgical History Surgical History History of bilateral carpal tunnel release History of heart artery stent (~2008) History of permanent cardiac pacemaker placement (~2015) [place] Hx of tonsillectomy S/P cubital tunnel release Family History Family History Mother Family history of blood dyscrasia Grandparent Alcoholism Social History Social History Social History: He is and lives alone. He has 4 children 1 of which in a motor vehicle collision. He used to work for a [employer] company but is now on disability. He smokes about 10 cigarettes a day and has smoked since his early 20s. He reports he quit smoking March 2024. He denies any significant alcohol use. Code status: DNR/DNI (per patient request) Surrogate decision maker: Enedelia Villalpando (friend) Smoking packs per day: 0.5 Smoking cigarettes per day: 10.0 Years smoked: 25 Smoking pack-years: 12.50 Smoking status: Former smoker Second hand tobacco smoke exposure: No Alcohol intake: current Alcohol use details: Occasionally Substance use: never Substance use type: does not use Do You Feel Safe in your Home?: Yes Lack of Transportation: No Lack of Food: Never True Current Housing: I Have Housing Concerned About Future Housing: No Difficulty Paying Gas/Electric Bills: YES Difficulty Paying for Meds: No Currently Unemployed: No Education: High School Diploma/GED Difficulty w/ Childcare or Family Care: No Spiritual care concerns: No Exam 2 Narrative: GENERAL: Well-appearing, well-nourished, and in no acute distress. HEAD: Normocephalic, atraumatic. EYES: PERRL and EOMI. ENT: Mucous membranes moist. No tongue biting. CHEST: Clear to auscultation. No respiratory distress. HEART: Regular rate and rhythm. Normal peripheral pulses. ABDOMEN: Soft, nontender, nondistended, normal active bowel sounds. EXTREMITIES: Right-sided BKA. Left lower extremity in a walking boot. Normal upper lower extremities. SKIN: Warm, dry, no rash. NEURO: Alert and oriented x3. PSYCH: Normal mood and affect. Course Course Emergency Course: Difficult to discern whether this was a vasovagal episode or a seizure. Discussed with Dr. Hopper. recommends increasing Keppra to 1000 mg twice a day and patient may be discharged back to his facility. Patient aware of treatment plan and has no additional questions. Vital Signs Vital signs: Vital Signs Temperature 97.6 F 06/07/24 10:10 Pulse Rate 80 06/07/24 10:10 Respiratory Rate 16 06/07/24 10:10 Blood Pressure 63/45 L 06/07/24 10:10 Pulse Oximetry 99 06/07/24 10:10 Temperature 97.6 F 06/07/24 10:10 Pulse Rate 80 06/07/24 13:18 Respiratory Rate 18 06/07/24 13:18 Blood Pressure 107/75 06/07/24 13:18 Pulse Oximetry 97 06/07/24 13:18 Oxygen Delivery Room Air 06/07/24 10:40 MDM - Seizure Lab Data 06/07/24 10:37 06/07/24 10:37 Labs: Lab Results 06/07/24 Range/Units 10:37 WBC 7.8 (4.5-10.0) K/mm3 RBC 3.38 L (4.6-6.20) M/mm3 Hgb 10.8 L D (14.0-18.0) g/dL Hct 34.1 L (42.0-52.0) % MCV 100.9 H (80-100) fl MCH 32.0 (26-34) pg MCHC 31.7 L (32-36) g/dl RDW 15.0 H (11.5-14.5) % Plt Count 352 (150-375) k/mm3 MPV 10.3 (7.4-10.4) fl Immature Gran % (Auto) 0.4 (0-0.5) % Neut % (Auto) 54.9 (45.5-73.1) % Lymph % (Auto) 33.6 (18.3-44.2) % [place] % (Auto) 7.0 (2.6-8.5) % Eos % (Auto) 2.7 (0-4.4) % Baso % (Auto) 1.4 H (0.2-1.2) % Lymph # (Auto) 2.61 (0.9-3.2) K/mm3 [place] # (Auto) 0.5 (0.1-0.6) K/mm3 Eos # (Auto) 0.2 (0-0.3) K/mm3 Baso # (Auto) 0.1 (0.0-0.1) K/mm3 Abs Immat Gran (auto) 0.03 (0.00-0.031) K/mm3 Absolute Neuts (auto) 4.3 (1.3-6.7) K/mm3 Absolute Nucleated RBC 0.000 (0.0-0.012) K/mm3 Nucleated RBC % 0.0 (0.0-0.2) % Sodium 139 (137-145) mmol/L Potassium 3.7 (3.4-5.0) mmol/L Chloride 107 (98-107) mmol/L Carbon Dioxide 26 (22-30) mmol/L Anion Gap 6 (4-12) mmol/L BUN 18 (9-20) mg/dL Creatinine 1.20 (0.7-1.3) mg/dL Estim Creat Clear Calc 63 ml/min Estimated GFR > 60 (59 - ) Glucose 87 (65-110) mg/dL Calcium 9.4 (8.4-10.2) mg/dL Total Bilirubin 1.6 H (0.2-1.3) mg/dL AST 25 (17-59) U/L ALT 14 (6-50) U/L Alkaline Phosphatase 161 H (38-126) U/L Total Protein 8.0 (6.3-8.2) g/dL Albumin 3.4 L (3.5-5.1) g/dL Imaging Data Radiologist's impression: ITS Impressions Chest X-Ray 06/07/24 11:23 Impression: Clear lungs. Head CT 06/07/24 12:55 Impression: No intracranial hemorrhage, mass, or acute infarct. Evolving chronic right frontal lobe infarct. Discharge Plan Discharge Clinical Impression: Breakthrough seizure Patient Disposition: Home, Self-Care Condition: Stable Instructions: Recurrent Seizures in Adults (ED) Additional Instructions: We are increasing your anti epileptic medication by turn 50 mg a should now take Keppra 1000 mg twice a day. A new prescription has been sent to your pharmacy. Patient Language: Armenian Prescriptions: New levetiracetam [Keppra] 1,000 mg tablet 1,000 mg PO BID Qty: 60 0RF Discontinued levetiracetam [Keppra] 750 mg tablet 750 mg PO BID Qty: 60 0RF No Action Xarelto 20 mg tablet 20 mg PO DAILY Rx Instructions: must administer with evening meal albuterol sulfate 90 mcg/actuation HFA aerosol inhaler 1 puff inhalation Q4H PRN (Reason: shortness of breath or wheezing) Qty: 25.5 3RF triamcinolone acetonide 0.1 % cream 1 applic topical BID Qty: 454 11RF Rx Instructions: use 2x/day for 5 out of 7 days, then use Eucerin 2x/day for remaining 2 days of the week. aspirin 325 mg Tablet 325 mg PO DAILY@0800 Qty: 30 0RF carvedilol [Coreg] 6.25 mg Tablet 6.25 mg PO Q12HR Qty: 60 0RF valsartan [Diovan] 40 mg Tablet 40 mg PO DAILY Qty: 30 0RF amoxicillin-pot clavulanate 875-125 mg tablet 1 tablet PO Q12H Qty: 5 0RF atorvastatin 20 mg Tablet 40 mg PO DAILY 30 Days Qty: 60 0RF insulin glargine [Lantus U-100 Insulin] 100 unit/mL Solution 18 unit subcut HS Qty: 10 0RF metformin 1,000 mg tablet 1,000 mg PO BID Qty: 180 3RF Rx Instructions: with meals folic acid 1 mg tablet 1 mg PO DAILY Qty: 90 3RF furosemide 40 mg tablet 40 mg PO DAILY Qty: 30 11RF montelukast 10 mg tablet 10 mg PO HS Qty: 30 11RF cetirizine 10 mg tablet 10 mg PO DAILY Qty: 90 3RF potassium chloride 20 mEq tablet,ER particles/crystals 20 meq PO DAILY Qty: 90 3RF tamsulosin 0.4 mg capsule 0.4 mg PO QHS Qty: 90 3RF allopurinol 100 mg tablet 200 mg PO DAILY Qty: 180 1RF ipratropium-albuterol 0.5 mg-3 mg(2.5 mg base)/3 mL solution for nebulization 3 ml inhalation QID PRN (Reason: shortness of breath or wheezing) Qty: 360 3RF Follow-up/Referrals: Phong Hinkle MD [Primary Care Provider] - 1 Week Lo Tuttle MD [Physician] - 1 Week
[2024-06-07] MEDS: levETIRAcetam 250 MG TABLET PO (14:28)
--- OUTSIDE RECORDS SUMMARY | 2024-06-14 21:28 | XMS_ITS | Encounter Summary ---
Author Organization [facility] Address [address] [place] [address] Care Team Providers Care Bin Worker Name Role Phone Jay Hinkle MD Primary Care Provider [phone] Encounter Details Date Type Department Care Team (Latest Contact Info) Description 05/07/2022 Travel Social History Tobacco Use Types Packs/Day Years Used Date Smoking Tobacco: Never Assessed Sex and Gender Information Value Date Recorded Sex Assigned at Not on file Gender Identity Not on file Sexual Orientation Not on file documented as of this encounter Plan of Treatment Not on file documented as of this encounter Visit Diagnoses Not on filedocumented in this encounter Care Teams Bin Worker Relationship Specialty Start Date End Date Jay Hinkle MD [address] [facility] [address] [place] [id number] PCP - General Internal Medicine 01/25/19 documented as of this encounter
--- OUTSIDE RECORDS SUMMARY | 2024-06-14 21:28 | XMS_ITS | Patient Health Summary ---
Author Organization [facility] [place] Address [address] [place] [address] Care Team Providers Care Legal Support Specialist Name Role Phone Jay Hinkle MD Primary Care Provider [phone] Note from [facility],non-owned Affiliates and Associated Physician Practices is amultiple site organization consisting of ambulatory clinics and hospital sitesin [place], [place], [place] and [place]. This disclosure is being madepursuant to the Care Everywhere program and may not contain all information available regarding this patient. Last updated 18.[facility] Allergies No known active allergies Social History Tobacco Use Types Packs/Day Years Used Date Smoking Tobacco: Never Assessed Sex and Gender Information Value Date Recorded Sex Assigned at Not on file Gender Identity Not on file Sexual Orientation Not on file Last Filed Vital Signs Vital Sign Reading Time Taken Comments Blood Pressure 149/94 05/07/2022 9:40 AM IT CONSULTING MANAGER Pulse 90 05/07/2022 9:40 AM IT CONSULTING MANAGER Temperature - - Respiratory Rate - - Oxygen Saturation 93% 05/07/2022 9:40 AM IT CONSULTING MANAGER Inhaled Oxygen Concentration - - Weight - - Height - - Body Mass Index - - Medical Devices Implanted Type Area Traffic Warehouse Supervisor Device Identifier Shelf Expiration Date Model / Serial / Lot Biotronik Pacemaker; Mri Conditional 1.5t Procedures * MRI FOOT RIGHT WWO CONTRAST(Performed 05/07/2022) Performed for Ulcer of right foot due to type 2 diabetes mellitus (HCC) * CREATININE - POCT INTERFACED(Performed 05/07/2022) * SKIN TEST PPD - POINT OF CARE(Performed 01/25/2019) Performed for PPD screening test Results * MRI FOOT RIGHT WWO CONTRAST (05/07/2022 9:56 AM IT CONSULTING MANAGER) Anatomical Region Laterality Modality Ankle / Foot Magnetic Resonan ce 05/07/2022 10:1 1 AM IT CONSULTING MANAGER Impressions 05/07/2022 10:39 AM IT CONSULTING MANAGER IMPRESSION: 1.Disarticulation of the second toe at the level of the proximal interphalangeal joint. 2.No evidence of osteomyelitis. 3.Skin irregularity compatible with wound/ulcer at the plantar aspect of the first metatarsophalangeal joint. Associated soft tissue enhancement compatible with cellulitis at this location and in the second toe. 4.No abscess. > Dictated by Jae Garnica MD (vice president of talent management) I, Rico Lane MD have personally reviewed and interpreted this examination/study. > Interpreting Provider: Rico Lane MD on 05/07/2022 10:39 AM Narrative 05/07/2022 10:39 AM IT CONSULTING MANAGER PROCEDURE: ??MRI FOOT RIGHT WWO CONTRAST, DATE/TIME OF EXAM: ??05/07/2022 9:56 AM, LOCATION [facility] INDICATION: E11.621: Ulcer of right foot due to type 2 diabetes mellitus (CMS/HCC) L97.519: Ulcer of right foot due to type 2 diabetes mellitus (CMS/HCC) ADDITIONAL CLINICAL INFORMATION: Ordering Provider Reason For Exam: ??NO Technologist Note: Additional: COMPARISON: None. TECHNIQUE: MRI of the right foot was performed utilizing multiple pulse sequences in multiple planes before and after intravenous gadolinium contrast administration. [id number] was focused on the forefoot for optimal evaluation. CONTRAST: ?? GADOBUTROL 1 MMOL/ML IV SSM SO:10 mL FINDINGS: Postsurgical changes of second toe disarticulation at the level of the proximal interphalangeal joint. No fracture. ??Bone marrow signal intensity is normal. Cortical signal intensity is unremarkable. Mild degenerative changes at the interphalangeal joints and first digit metatarsophalangeal joint. Trace joint effusion at the first digit metatarsophalangeal joint. There are thin cystic structures between the first and second and third and fourth metatarsal heads (series 8 image 18) compatible with intermetatarsal bursae. ?? The flexor hallucis longus tendon is enlarged and mildly increased in signal at the level of the midfoot and proximal shaft of the first metatarsal compatible with tendinosis. No visible discontinuity to suggest a high-grade tear. There is skin contour irregularity at the plantar aspect of the first metatarsophalangeal joint suggestive of a wound/ulcer (series 12 image 22). There is soft tissue enhancement in this region compatible with cellulitis (series 16 image 22). There is also soft tissue enhancement in the second toe adjacent to the amputation site suggesting cellulitis. There is diffuse soft subcutaneous edema, greater at the dorsal aspect of the foot. There is mild muscle atrophy and diffuse muscle edema. No fluid collection concerning for abscess is identified. ?? Procedure Note Rico Lane MD - 05/07/2022 PROCEDURE: MRI FOOT RIGHT WWO CONTRAST, DATE/TIME OF EXAM: 05/07/2022 9:56 AM, LOCATION [facility] INDICATION: E11.621: Ulcer of right foot due to type 2 diabetes mellitus (CMS/HCC) L97.519: Ulcer of right foot due to type 2 diabetes mellitus (CMS/HCC) ADDITIONAL CLINICAL INFORMATION: Ordering Provider Reason For Exam: NO Technologist Note: Additional: COMPARISON: None. TECHNIQUE: MRI of the right foot was performed utilizing multiple pulse sequencesin multiple planes before and after intravenous gadolinium contrast administration. Vdoyy-[id number] was focused on the forefoot for optimal evaluation. CONTRAST: GADOBUTROL 1 MMOL/ML IV SSM SO:10 mL FINDINGS: Postsurgical changes of second toe disarticulation at the level of the proximal interphalangeal joint. No fracture. Bone marrow signalintensity is normal. Cortical signal intensity is unremarkable. Mild degenerative changes at the interphalangeal joints and first digitmetatarsophalangeal joint. Trace joint effusion at the first digit metatarsophalangealjoint. There are thin cystic structures between the first and second and thirdand fourth metatarsal heads (series 8 image 18) compatible withintermetatarsal bursae. The flexor hallucis longus tendon is enlarged and mildly increased in signal at the level of the midfoot and proximal shaft of the first metatarsal compatible with tendinosis. No visible discontinuity tosuggest a high-grade tear. There is skin contour irregularity at the plantar aspect of the first metatarsophalangeal joint suggestive of a wound/ulcer (series 12 image22). There is soft tissue enhancement in this region compatible withcellulitis (series 16 image 22). There is also soft tissue enhancement in thesecond toe adjacent to the amputation site suggesting cellulitis. There isdiffuse soft subcutaneous edema, greater at the dorsal aspect of the foot. Thereis mild muscle atrophy and diffuse muscle edema. No fluid collection concerning for abscess is identified. IMPRESSION: 1.Disarticulation of the second toe at the level of the proximal interphalangeal joint. 2.No evidence of osteomyelitis. 3.Skin irregularity compatible with wound/ulcer at the plantar aspect of the first metatarsophalangeal joint. Associated soft tissue enhancement compatible with cellulitis at this location and in the second toe. 4.No abscess. > Dictated by Jae Garnica MD (vice president of talent management) I, Rico Lane MD have personally reviewed and interpreted this examination/study. > Interpreting Provider: Rico Lane MD on 05/07/2022 10:39 AM Ordering Provider Unlisted MR ORDERAB LES * CREATININE - POCT INTERFACED (05/07/2022 8:34 AM IT CONSULTING MANAGER) [facility] Creatinine POCT 0.90 0.30 - 1.30 mg/dL 05/07/2022 8:36 AM IT CONSULTING MANAGER [facility] eGFR >90 >90 mL/min/1.7 3 m2 05/07/2022 8:36 AM IT CONSULTING MANAGER [facility] Blood BLOOD SPECIMEN / Unknown 05/07/2022 8:34 AM IT CONSULTING MANAGER 05/07/2022 8:36 AM IT CONSULTING MANAGER Provider Unknown LAB - POINT OF CARE ORDERABLES [facility] [address] [place] [address], [place] [phone] * SKIN TEST PPD - POINT OF CARE (01/25/2019 9:20 AM CDT) PPD Other MISCELLANEOUS SAMPLE S / Unknown 01/25/2019 9:20 AM CDT [employer] HIGH PRESSURE CLEANER-WOODWORK SALVAGE INSPECTOR LAB - POINT OF CA RE ORDERABLES Care Teams Legal Support Specialist Relationship Specialty Start Date End Date Jay Hinkle MD [address] [place] [address] PCP - General Internal Medicine 01/25/19
--- OUTSIDE RECORDS SUMMARY | 2024-06-14 21:28 | XMS_ITS | Clinical Summary ---
Author Organization [facility] Address [address] [place] [address] Care Team Providers Care Derrick Worker Name Role Phone Jay Hinkle MD Primary Care Provider [phone] Source Comments [facility],non-owned Affiliates and Associated Physician Practices is amultiple site organization consisting of ambulatory clinics and hospital sitesin [place], [place], [place] and [place]. This disclosure is being madepursuant to the Care Everywhere program and may not contain all information available regarding this patient. Last updated 18.[facility] [employer] Allergies No known active allergies Social History Tobacco Use Types Packs/Day Years Used Date Smoking Tobacco: Never Assessed Sex and Gender Information Value Date Recorded Sex Assigned at Not on file Gender Identity Not on file Sexual Orientation Not on file Last Filed Vital Signs Vital Sign Reading Time Taken Comments Blood Pressure 149/94 05/07/2022 9:40 AM TRANSITION MGR RN Pulse 90 05/07/2022 9:40 AM TRANSITION MGR RN Temperature - - Respiratory Rate - - Oxygen Saturation 93% 05/07/2022 9:40 AM TRANSITION MGR RN Inhaled Oxygen Concentration - - Weight - - Height - - Body Mass Index - - Plan of Treatment Health Maintenance Due Date Last Done Comments COLOGUARD (AGES 45-75) - COL ON CA SCREENING 1958 COLON MONITORING 1958 COLONOSCOPY - COLON CA SCREENING 1958 CT COLONOGRAPHY - COLON CA SCREENING 1958 Colorectal Cancer Screening 1958 FIT - COLON CA SCREENING 1958 FLEX SIG - COLON CA SCREENING 1958 LIPID TESTING 1958 HIV SCREENING 1973 HEPATITIS C SCREENING 08/22/1976 DTAP/TDAP/TD VACCINES (1 - Tdap) 1977 ZOSTER VACCINE (1 of 2) 2008 PNEUMOCOCCAL VACCINE 65+ (1 of 1 - PCV) 08/28/2023 COVID-19 VACCINE (1 - 2023-2 5 season) 2024 INFLUENZA VACCINE (#1) 2024 DEPRESSION SCREENING 06/08/2024 MEDICARE AWV ? CALENDAR YEAR 2024 Respiratory Syncytial Virus (RSV) Vaccine Pt: or over 60 yrs (1 - 1-dose 75+ series) 2033 HEPATITIS B VACCINE Aged Out No longe r eligible based on patient's age to complete this topic HIB VACCINE Aged Out No longer eligi ble based on patient's age to complete this topic HPV VACCINE Aged Out No longer eligi ble based on patient's age to complete this topic MENINGOCOCCAL VACCINE Aged Out No consuelo bruce eligible based on patient's age to complete this topic Medical Devices Implanted Type Area Asbestos Cement Sheet Supervisor Device Identifier Shelf Expiration Date Model / Serial / Lot Biotronik Pacemaker; Mri Conditional 1.5t Care Teams Derrick Worker Relationship Specialty Start Date End Date Jay Hinkle MD [address] [id number] PCP - General Internal Medicine 01/25/19
--- OUTSIDE RECORDS SUMMARY | 2024-06-14 21:28 | XMS_ITS | Referral Summary ---
Author Organization [facility] Address [address] [facility] [place] [address] Care Team Providers Care Data Entry Manager Name Role Phone Jay Hinkle MD Primary Care Provider [phone] Source Comments [facility],non-owned Affiliates and Associated Physician Practices is amultiple site organization consisting of ambulatory clinics and hospital sitesin [place], [place], [place] and [place]. This disclosure is being madepursuant to the Care Everywhere program and may not contain all information available regarding this patient. Last updated 18.[facility] [employer] Allergies No known active allergies Social History Tobacco Use Types Packs/Day Years Used Date Smoking Tobacco: Never Assessed Sex and Gender Information Value Date Recorded Sex Assigned at Not on file Gender Identity Not on file Sexual Orientation Not on file Last Filed Vital Signs Vital Sign Reading Time Taken Comments Blood Pressure 149/94 05/07/2022 9:40 AM HIDE MILL WORKER Pulse 90 05/07/2022 9:40 AM HIDE MILL WORKER Temperature - - Respiratory Rate - - Oxygen Saturation 93% 05/07/2022 9:40 AM HIDE MILL WORKER Inhaled Oxygen Concentration - - Weight - - Height - - Body Mass Index - - Plan of Treatment Not on file Medical Devices Implanted Type Area Head Usher Device Identifier Shelf Expiration Date Model / Serial / Lot Biotronik Pacemaker; Mri Conditional 1.5t Administered Medications Care Teams Data Entry Manager Relationship Specialty Start Date End Date Jay Hinkle MD [address] [address] PCP - General Internal Medicine 01/25/19
--- OUTSIDE RECORDS SUMMARY | 2024-06-14 21:28 | XMS_ITS | Encounter Summary ---
Author Organization [facility] Address [address] [place] [address] Care Team Providers Care Guest Service Aide Name Role Phone Jay Hinkle MD Primary Care Provider [phone] Reason for Visit * Reason Comments PPD Skin Test Placement Encounter Details Date Type Department Care Team (Late st Contact Info) Description 01/25/2019 9:20 AM CDT Office Visit [facility] AT [address] [id number] Provider, Mikayla Simpson [place] PPD screening test (Primary Dx) Social History Tobacco Use Types Packs/Day Years Used Date Smoking Tobacco: Never Assessed Sex and Gender Information Value Date Recorded Sex Assigned at Not on file Gender Identity Not on file Sexual Orientation Not on file documented as of this encounter Progress Notes * Maki Lazo - 01/27/2019 9:14 AM CDT 01/27/2019 Joselito Lamar returns to clinic today for TB (PPD) reading. 0 mm of induration noted, negative reading. Copy of the results were given to patient and scanned into the medical record. Patient denies any further questions or concerns today. Maki Lazo 01/27/2019 9:14 AM * Cuong Art APRN-CNP - 01/25/2019 9:30 AM CDT PPD Placement note Joselito Lamar, 58 year old male is here today for placement of PPD test Reason for PPD test: work Pt taken PPD test before: yes Verified in allergy area and with patient that they are not allergic to the products PPD is made of(Phenol or Tween). Yes Is patient taking any oral or IV steroid medication now or have they taken it in the last month? no Has the patient ever received the BCG vaccine?: no Has the patient been in recent contact with anyone known or suspected of having active TB disease?:no Date of exposure (if applicable): na Name of person they were exposed to (if applicable): na Patient's Country of origin?: [place] O: Alert and oriented in NAD. P: PPD placed on 01/25/2019. Patient advised to return for reading within 48-72 hours. documented in this encounter Plan of Treatment Not on file documented as of this encounter Procedures Procedure Name Priority Date/Time Associated Diagnosis Comments SKIN TEST PPD - POINT OF CARE Routine 01/25/2019 9:20 AM CDT PPD screening test documented in this encounter Results * SKIN TEST PPD - POINT OF CARE (01/25/2019 9:20 AM CDT) PPD Other MISCELLANEOUS SAMPLE S / Unknown 01/25/2019 9:20 AM CDT [facility] - POINT OF CA RE ORDERABLES documented in this encounter Visit Diagnoses Diagnosis PPD screening test- Primary Screening examination for pulmonary tuberculosis documented in this encounter Administered Medications Administered Medications Medication Order MAR Action Action Date Dose Rate Site PPD Intradermal Given 01/25/2019 0.1 mL Left Forearm documented in this encounter Care Teams Guest Service Aide Relationship Specialty Start Date End Date Jay Hinkle MD [address] [place] [address] PCP - General Internal Medicine 01/25/19 documented as of this encounter
--- OUTSIDE RECORDS SUMMARY | 2024-06-14 21:28 | XMS_ITS | Encounter Summary ---
Author Organization [facility] Address [address] [place] [address] Care Team Providers Care Research Microbiologist Name Role Phone Jay Hinkle MD Primary Care Provider [phone] Reason for Referral * Radiology Services (Routine) - Closed Specialty Diagnoses / Procedures Referred By Contac t Referred To Contact MRI Diagnoses Ulcer of right foot due to type 2 diabetes mellitus (HCC) Procedures MRI FOOT RIGHT WWO CONTRAST Honorio Shepherd, DPZaria [address] [facility] [address] [place] [address] [facility] Mri [address] [place] [address] Referral ID Status Reason Start Date Expiration Date Visits Re quested Visits Authorized [id number] Closed 03/13/2022 06/11/2022 1 1 MOTIVE ELECTRICAL HELPER Reason for Visit * Auth/Cert (Routine) Specialty Diagnoses / Procedures Referred By Contac t Referred To Contact Referral ID Status Reason Start Date Expiration Date Visits Re quested Visits Authorized [id number] 1 1 Encounter Details Date Type Department Care Team (Latest Contact Info) Description 05/07/2022 8:09 AM AUTOMOTIVE ELECTRICAL HELPER - 05/07/2022 11:59 PM AUTOMOTIVE ELECTRICAL HELPER Hospital Encounter [facility] MRI [address] [place] [address] Discharge Disposition: Home or Self Care Social History Tobacco Use Types Packs/Day Years Used Date Smoking Tobacco: Never Assessed Sex and Gender Information Value Date Recorded Sex Assigned at Not on file Gender Identity Not on file Sexual Orientation Not on file documented as of this encounter Last Filed Vital Signs Vital Sign Reading Time Taken Comments Blood Pressure 149/94 05/07/2022 9:40 AM AUTOMOTIVE ELECTRICAL HELPER Pulse 90 05/07/2022 9:40 AM AUTOMOTIVE ELECTRICAL HELPER Temperature - - Respiratory Rate - - Oxygen Saturation 93% 05/07/2022 9:40 AM AUTOMOTIVE ELECTRICAL HELPER Inhaled Oxygen Concentration - - Weight - - Height - - Body Mass Index - - documented in this encounter Progress Notes * Cindy Gandhi RN - 05/07/2022 9:44 AM CST MRI completed; pt tolerated well; VSS; pt to d/c to home; MRI self reprogrammable; IV d/c'd cannulaintact MOTIVE ELECTRICAL HELPER * Cindy Gandhi RN - 05/07/2022 8:33 AM CST 0825 [employer] pacemaker rep, Mallory Vargas, present; programmed pacemaker to MRI safe mode; pt has self reprogrammable pacemaker; VSS; pt present for MRI R foot c/s contrast MOTIVE ELECTRICAL HELPER documented in this encounter Plan of Treatment Not on file documented as of this encounter Procedures Procedure Name Priority Date/Time Associated Diagnosis Comments MRI FOOT RIGHT WWO CONTRAST Routine 05/07/2022 9:56 AM AUTOMOTIVE ELECTRICAL HELPER Ulcer of right foot due to type 2 diabetes mellitus (HCC) CREATININE - POCT INTERFACED Routine 05/07/2022 8:34 AM AUTOMOTIVE ELECTRICAL HELPER documented in this encounter Results * MRI FOOT RIGHT WWO CONTRAST (05/07/2022 9:56 AM AUTOMOTIVE ELECTRICAL HELPER) Anatomical Region Laterality Modality Ankle / Foot Magnetic Resonan ce 05/07/2022 10:1 1 AM AUTOMOTIVE ELECTRICAL HELPER Impressions 05/07/2022 10:39 AM AUTOMOTIVE ELECTRICAL HELPER IMPRESSION: 1.Disarticulation of the second toe at the level of the proximal interphalangeal joint. 2.No evidence of osteomyelitis. 3.Skin irregularity compatible with wound/ulcer at the plantar aspect of the first metatarsophalangeal joint. Associated soft tissue enhancement compatible with cellulitis at this location and in the second toe. 4.No abscess. > Dictated by Jae Garnica MD (residential life director) I, Rico Lane MD have personally reviewed and interpreted this examination/study. > Interpreting Provider: Rico Lane MD on 05/07/2022 10:39 AM Narrative 05/07/2022 10:39 AM AUTOMOTIVE ELECTRICAL HELPER PROCEDURE: ??MRI FOOT RIGHT WWO CONTRAST, DATE/TIME OF EXAM: ??05/07/2022 9:56 AM, LOCATION ??[facility] INDICATION: E11.621: Ulcer of right foot due to type 2 diabetes mellitus (CMS/HCC) L97.519: Ulcer of right foot due to type 2 diabetes mellitus (CMS/HCC) ADDITIONAL CLINICAL INFORMATION: Ordering Provider Reason For Exam: ??NO Technologist Note: Additional: COMPARISON: None. TECHNIQUE: MRI of the right foot was performed utilizing multiple pulse sequences in multiple planes before and after intravenous gadolinium contrast administration. Shimg-kg-[id number] was focused on the forefoot for optimal [...] DATE/TIME OF EXAM: 05/07/2022 9:56 AM, LOCATION [facility] INDICATION: E11.621: Ulcer of right foot due to type 2 diabetes mellitus (CMS/HCC) L97.519: Ulcer of right foot due to type 2 diabetes mellitus (CMS/HCC) ADDITIONAL CLINICAL INFORMATION: Ordering Provider Reason For Exam: NO Technologist Note: Additional: COMPARISON: None. TECHNIQUE: MRI of the right foot was performed utilizing multiple pulse sequencesin multiple planes before and after intravenous gadolinium contrast administration. Adtvk-ad-[id number] was focused on the forefoot for optimal [...] abscess. > Dictated by Jae Garnica MD (residential life director) I, Rico Lane MD have personally reviewed and interpreted this examination/study. > Interpreting Provider: Rico Lane MD on 05/07/2022 10:39 AM Ordering Provider Unlisted MD MOSHER ORDERAB LES * CREATININE - POCT INTERFACED (05/07/2022 8:34 AM AUTOMOTIVE ELECTRICAL HELPER) [facility] Creatinine POCT 0.90 0.30 - 1.30 mg/dL 05/07/2022 8:36 AM AUTOMOTIVE ELECTRICAL HELPER [facility] eGFR >90 >90 mL/min/1.7 3 m2 05/07/2022 8:36 AM AUTOMOTIVE ELECTRICAL HELPER [facility] Blood BLOOD SPECIMEN / Unknown 05/07/2022 8:34 AM AUTOMOTIVE ELECTRICAL HELPER 05/07/2022 8:36 AM AUTOMOTIVE ELECTRICAL HELPER Provider Unknown LAB - POINT OF CARE ORDERABLES Performing Organization Address City/State/[facility] Co de Phone Number [facility] [address] [address], [facility] [phone] documented in this encounter Visit Diagnoses Diagnosis Ulcer of right foot due to type 2 diabetes mellitus (HCC) documented in this encounter Administered Medications Inactive Administered Medications - up to 3 most recent administrations Medication Order MAR Action Action Date Dose Rate Site gadobutrol (Gadavist) injection Intravenous, CONTRAST ONCE, Starting on 05/07/22 at 0858, Until Gloria 05/08/22 at 0147 $ Given - Contrast 05/07/2022 9:56 AM AUTOMOTIVE ELECTRICAL HELPER 10 mL documented in this encounter Care Teams Research Microbiologist Relationship Specialty Start Date End Date Jay Hinkle MD [address] [facility] [address] [place] [address] PCP - General Internal Medicine 01/25/19 documented as of this encounter
--- OUTSIDE RECORDS SUMMARY | 2024-06-14 21:29 | XMS_ITS | Encounter Summary ---
Author Organization [facility] Healthcare Address [address] [place] [address] Care Team Providers Care Transmitter Supervisor Name Role Phone No, Physician Primary Care Provider [phone] Chelsie Enriquez MD Unavailable [phone] Encounter Details Date Type Department Care Team (Latest Contact Info) Description 11/13/2020 10:53 AM CDT - 11/13/2020 11:59 PM CDT Hospital Encounter [facility] [address] [place] [address] Discharge Disposition: Discharge to home or self care Social History Tobacco Use Types Packs/Day Years Used Date Smoking Tobacco: Former Cigarettes Q uit: 06/08/2020 Smokeless Tobacco: Never AUDIT-C Answer Date Recorded Q1: How often do you have a drink containing alc ohol? 2-4 times a month 11/13/2020 Q2: How many drinks containi ng alcohol do you have on a typical day when you are drinking? 1 or 2 11/13/2020 Q3: How often do you have si x or more drinks on one occasion? Never 11/13/2020 Sex and Gender Information Value Date Recorded Sex Assigned at Not on file Legal Sex Male 8:13 PM WAREHOUSE COORDINATOR Gender Identity Not on file Sexual Orientation Not on file documented as of this encounter Medications at Time of Discharge atorvastatin (LIPITOR) 20 mg tablet Take 1 tablet (20 mg total) by mouth daily cetirizine (ZyrTEC) 10 mg tablet Take 1 tablet (10 mg total) by mouth daily Coreg 25 mg tablet Take 1 tablet (25 mg total) by mouth 2 (two) times a day with meals 06/08/1969 folic acid (FOLVITE) 1 mg tablet Take 1 tablet (1 mg total) by mouth daily furosemide (LASIX) 40 mg tablet Take 1 tablet (40 mg total) by mouth 2 (two) times a day magnesium oxide 400 mg magnesium capsule Take 400 mg by mouth 2 (two) times a day metFORMIN (GLUCOPHAGE) 1,000 mg tablet Take 1 tablet (1,000 mg total) by mouth daily with breakfast 11/16/2020 montelukast (SINGULAIR) 10 mg tablet Take 1 tablet (10 mg total) by mouth nightly multivitamin capsule Take 1 capsule by mouth daily potassium chloride ER (potassium chloride ER) 20 mEq CR tablet Take 1 tablet (20 mEq total) by mouth daily valsartan (DIOVAN) 320 mg tablet valsartan 320 mg tablet 06/08/1969 cephalexin (KEFLEX) 500 mg capsuleIndicatio ns:Prophylaxis, Surgical Take 1 capsule (500 mg total) by mouth 3 (three) times a day for 30 doses 30 capsule 11/13/2020 1 aspirin 81 mg enteric coated tablet Take 81 mg by mouth daily 3 lisinopriL (PRINIVIL,ZESTRI L) 20 mg tablet Take 20 mg by mouth daily 3 rivaroxaban (XARELTO) 15 mg tablet Take 1 tablet (15 mg total) by mouth daily 11/14/2020 3 tamsulosin (FLOMAX) 0.4 mg extended release capsule Take 0.4 mg by mouth daily 3 thiamine (VITAMIN B1) 100 mg tablet Take 100 mg by mouth daily 3 documented as of this encounter Discharge Disposition Disposition Code Departure Means Destination Discharge to home or self care documented in this encounter Plan of Treatment Not on file documented as of this encounter Procedures Procedure Name Priority Date/Time Associated Diagnosis Comments XR CHEST 1 VIEW IP Routine 11/13/2020 11:01 AM CDT documented in this encounter Results * X-ray chest 1 view (Portable) (11/13/2020 11:01 AM CDT) Anatomical Region Laterality Modality Body, Chest N/A Computed Radiogr aphy 11/13/2020 11:1 8 AM CDT Impressions 11/13/2020 11:18 AM CDT Placement of defibrillator. ??No pneumothorax. Electronically signed by: Bautista Ovalles M.D. Narrative 11/13/2020 11:18 AM CDT EXAMINATION: XR CHEST 1 VIEW DATE: 11/13/2020 10:55 AM HISTORY: 60-year-old man defibrillator placement follow-up FINDINGS:Cardiomegaly. ??Defibrillator leads placed. ??No pneumothorax. No failure. Procedure Note Bautista Ovalles MD - 11/13/2020 EXAMINATION: XR CHEST 1 VIEW DATE: 11/13/2020 10:55 AM HISTORY: 60-year-old man defibrillator placement follow-up FINDINGS:Cardiomegaly. Defibrillator leads placed. No pneumothorax. No failure. IMPRESSION: Placement of defibrillator. No pneumothorax. Electronically signed by: Bautista Ovalles M.D. Sintia Arthur KALSOMINER IMG XR PROCEDURES Final R esult documented in this encounter Visit Diagnoses Not on filedocumented in this encounter Care Teams Transmitter Supervisor Relationship Specialty Start Date End Date No, Physician PCP - General 11/13/20 03/01/23 Chelsie Enriquez MD [address] [place] [address] Consulting Physician Cardiology 11/13/20 documented as of this encounter
--- OUTSIDE RECORDS SUMMARY | 2024-06-14 21:29 | XMS_ITS | Referral Summary ---
Author Organization [facility] [address] Address [address] [place] [address] Care Team Providers Care Tree Warden Name Role Phone Chelsie Enriquez MD Unavailable Treasure Johns NP Primary Care Provider [phone] Allergies No known active allergies Medications cetirizine (ZyrTEC) 10 mg tablet Take 1 tablet (10 mg total) by mouth daily Active multivitamin capsule Take 1 capsule by mouth daily Active atorvastatin (LIPITOR) 20 mg tablet Take 1 tablet (20 mg total) by mouth daily Active folic acid (FOLVITE) 1 mg tablet Take 1 tablet (1 mg total) by mouth daily Active furosemide (LASIX) 40 mg tablet Take 1 tablet (40 mg total) by mouth 2 (two) times a day Active magnesium oxide 400 mg magnesium capsule Take 400 mg by mouth 2 (two) times a day Active montelukast (SINGULAIR) 10 mg tablet Take 1 tablet (10 mg total) by mouth nightly Active potassium chloride ER (potassium chloride ER) 20 mEq CR tablet Take 1 tablet (20 mEq total) by mouth daily Active metFORMIN (GLUCOPHAGE) 1,000 mg tablet Take 1 tablet (1,000 mg total) by mouth daily with breakfast 1 Active allopurinoL (ZYLOPRIM) 100 mg tablet Take 1 tablet (100 mg total) by mouth daily 3 Active Coreg 25 mg tablet Take 1 tablet (25 mg total) by mouth 2 (two) times a day with meals 0 Active Xarelto 20 mg tablet Take 1 tablet (20 mg total) by mouth daily with breakfast 3 Active valsartan (DIOVAN) 320 mg tablet valsartan 320 mg tablet 0 Active ipratropium-albute roL (DUO-NEB) 0.5-2.5 mg/3 mL nebulizer solution 3 Active Flovent HFA 44 mcg/actuation inhaler 3 Active tamsulosin (FLOMAX) 0.4 mg extended release capsule TAKE ONE CAPSULE BY MOUTH DAILY AT 9PM AT BEDTIME 3 Active aspirin 81 mg enteric coated tablet Take 1 tablet (81 mg total) by mouth daily Active HYDROcodone-acetam inophen (NORCO) 5-325 mg per tabletIndications: Pain Take 1 tablet by mouth every 6 (six) hours as needed for pain 20 tablet 3 Active ondansetron ODT (ZOFRAN-ODT) 8 mg disintegrating tabletIndications: Prevention of Post-Operative Nausea and Vomiting Take 1 tablet (8 mg total) by mouth every 8 (eight) hours as needed for nausea or vomiting 12 tablet 1 3 Active dilTIAZem (CARDIZEM) 90 mg tablet 3 Active Active Problems Problem Noted Date Diagnosed Date Cyst of skin 04/22/2023 Alcohol abuse 03/02/2023 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 Diabetes mellitus without complication ([facility]) 03/02/2023 Diabetic foot ulcer ([facility]) 03/02/2023 High cholesterol 03/02/2023 Obesity (BMI 30.0-34.9) 03/02/2023 Tobacco dependence 03/02/2023 Lipoma of torso 03/02/2023 Dermoid cyst of skin of back 03/02/2023 Snoring 06/08/2021 Cardiomyopathy 10/23/2020 Overview (10/23/2020): Added automatically from request for surgery [id number] Congestive heart failure ([facility]) 10/12/2020 Arteriosclerosis of coronary artery 02/04/2019 Carotid bruit 02/04/2019 Shortness of breath 12/17/2018 Tremor 09/06/2018 Atrial fibrillation ([facility]) 2018 Bradycardia 2018 Dizziness 2018 Presence of cardiac pacemaker 08/24/2018 Social History Tobacco Use Types Packs/Day Years Used Date Smoking Tobacco: Some Days Cigarettes Last attempted to quit: 06/08/2020 Smokeless Tobacco: Never Tobacco Cessation:Ready to Q uit: No; Counseling Given: Yes AUDIT-C Answer Date Recorded Q1: How often do you have a drink containing alc ohol? Never 05/19/2023 Average Number of Drinks Not on file 023 Frequency of Binge Drinking Not on file 05/08 Personal Safety Answer Date Recorded Have you ever been in or are you currently in a harmful physical or emotional relationship or is someone making you feel afraid or unsafe? Denies 05/19/2023 Sex and Gender Information Value Date Recorded Sex Assigned at Not on file Legal Sex Male 8:13 PM CARROT TIER Gender Identity Not on file Sexual Orientation Not on file Last Filed Vital Signs Vital Sign Reading Time Taken Comments Blood Pressure 157/98 05/19/2023 11:59 AM CARROT TIER Pulse 80 05/19/2023 11:59 AM CARROT TIER Temperature 36.2 ??C (97.2 ??F) 05/19/2023 1 1:59 AM CARROT TIER Respiratory Rate 18 05/19/2023 11:5 9 AM CARROT TIER Oxygen Saturation 95% 05/19/2023 11: 59 AM CARROT TIER Inhaled Oxygen Concentration - - Weight 142.5 kg (314 lb 2.5 oz) 05/19/2023 7:52 AM CARROT TIER Height 185.4 cm (6' 1 ) 05/19/2023 7:52 AM CARROT TIER Body Mass Index 41.45 05/19/2023 7:52 AM CARROT TIER Plan of Treatment Not on file Medical Devices Implanted Type Area Food And Beverage Manager Device Identifier Shelf Expiration Date Model / Serial / Lot [employer] [id number] Sentus Promri 87cm Quadripolar Otw Thread Distal End Bend Left - [id number] - [id number] Implanted:Qty: 1 on 11/13/2020 by Chelsie Enriquez MD at [facility] [employer] 09/05/2022 [id number] / [id number] / [employer] [id number] Edora 8 Quadripolar Pacemaker Cardiac Hf-T - [id number] - [id number] Implanted:Qty: 1 on 11/13/2020 by Chelsie Enriquez MD at [facility] Pacemaker [employer] [id number] 02/05/2021 [id number] / [id number] / Procedures Procedure Name Priority Date/Time Associated Diagnosis Comments LIPID PANEL Routine 06/30/2018 from Last 3 Months or Most Recently Relevant to Health Maintenance Results * Lipid panel (06/30/2018) SCRIBED Cholesterol, Total 139 na - na EXTERNAL LAB SCRIBED HDL 60 na - na EXTERNAL LAB SCRIBED LDL 64 na - na EXTERNAL LAB SCRIBED Triglycerides 37 na - na EXTERNAL LAB Blood specimen (specimen) us Historical Provider LAB BLOOD ORDERABLES Edit ed Result - Final Performing Organization Address City/State/[facility] Co de Phone Number EXTERNAL LAB from Last 3 Months or Most Recently Relevant to Health Maintenance [place] [address] [facility] [employer] Advance Directives For more information, please contact: [phone] Documents on File Type Date Recorded Patient Forepart Reducer Expl anation Power of In Store Banker 05/19/2023 7:37 AM Care Teams Tree Warden Relationship Specialty Start Date End Date Treasure Johns NP [address] [address] PCP - General Family Medicine 03/02/23 Chelsie Enriquez MD [address] [address] Consulting Physician Cardiology 11/13/20
--- OUTSIDE RECORDS SUMMARY | 2024-06-14 21:29 | XMS_ITS | Encounter Summary ---
Author Organization [facility] Address [address] [place] [address] Phone Care Team Providers Care Chlorinator Name Role Phone Chelsie Enriquez MD Unavailable [phone] Treasure Johns NP Primary Care Provider [phone] Encounter Details Date Type Department Care Team (Late st Contact Info) Description 04/22/2023 Telephone [facility] [address] [place] [address] [place] [id number] Faizan Corcoran Social History Tobacco Use Types Packs/Day Years [...] on file Legal Sex Male 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 EXCISION OF CYST AND LIPOMA FROM BACK Please provide hold instructions for the patients : Aspirin/ Coumadin/ Elequis/ Edoxaban/ Fragmin/ Lovenox/ Heparin/ Pradaxa / Plavix/ Warfarin/Xarelto. Please send clearance letter to Plastic and Reconstructive Surgery @ [phone] Thank you, Boris Care Team STANT ATHLETIC TRAINER documented in this encounter Plan of Treatment Not on file documented as of this encounter Visit Diagnoses Not on filedocumented in this encounter Care Teams Chlorinator Relationship Specialty Start Date End Date Treasure Johns NP [address] [address] PCP - General Family Medicine 03/02/23 Chelsie Enriquez MD [address] [place] [address] Consulting Physician Cardiology 11/13/20 documented as of this encounter
--- OUTSIDE RECORDS SUMMARY | 2024-06-14 21:29 | XMS_ITS | Encounter Summary ---
Author Organization [facility] Address [address] [place] [address] Phone Care Team Providers Care Assistant Manager Quality Management Name Role Phone No, Physician Primary Care Provider [phone] Chelsie Enriquez MD Unavailable [phone] Encounter Details Date Type Department Care Team (Late st Contact Info) Description 12/12/2022 Orders Only [facility] [address] [place] [address] Oniel Higgins MD [address] [place], [place] [id number] Social History Tobacco Use Types Packs/Day Years [...] on file 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 Gender Identity Not on file Sexual Orientation Not on file documented as of this encounter Plan of Treatment Not on file documented as of this encounter Procedures Procedure Name Priority Date/Time Associated Diagnosis Comments SURGICAL PATHOLOGY Routine 12/12/2022 8: 36 AM CDT documented in this encounter Results * Surgical pathology (12/12/2022 8:36 AM CDT) Skin, shave biopsy 12/12/2022 8:36 AM CDT 12/15/2022 6:30 AM CDT Narrative 12/16/2022 3:33 PM CDT EPIC results best viewed via link to PDF [facility] [address] [place] [address] Ave., ??[address] [place] [id number] ? [email or web address] Note to Patients: ??This report may contain a detailed description of human tissue sent by a health care provider to the laboratory for pathologic evaluation. ??The content of this report is essential for diagnosis and may provide important critical findings. ??This information may be unfamiliar to patients to review without a medical professional present. ?? It is advised that the patient review this report in the presence of a health care provider who can answer questions and explain the details. FINAL REPORT Patient Information: PATIENT NAME: ??JOSELITO FRY ? SEX: ??M ? : ??1960 (Age: 62) ? Specimen Information: COLLECTED: ??12/12/2022 ? RECEIVED: ??12/15/2022 ? REPORTED: ??12/16/2022 ? Submitting Physician Information: Oniel Higgins M.D. [facility], [address] [place] [address] ??[id number], ? DERMATOPATHOLOGY REPORT RESULTS ?? DIAGNOSIS: SKIN, LEFT POSTERIOR SHOULDER, SHAVE BIOPSY: ? BASAL CELL CARCINOMA exr/isr By this signature, I attest that the above diagnosis is based upon my personal examination of the slides(and/or other material indicated in the diagnosis). Ann Carlson M.D. ?? Report Electronically Reviewed and Signed Out By ??Ann Carlson M.D. 12/16/2022 15:33:35 CLINICAL INFORMATION 1.8 X 1.3 CM, PINK SCALY PATCH; BCC VS ECZEMA VS AK. SPECIMEN DATA MICROSCOPIC DESCRIPTION: Irregular aggregates of atypical basal epithelial cells with palisading of their peripheral nuclei are present within the dermis. (C44.91) GROSS DESCRIPTION: Received in a formalin-containing bottle is a superficial fragment of pale lr and finely scaling skin measuring 1.6 by 1.0 by 0.1 cm. The surgical margin is inked blue.The specimen bears a flat, brown, and well-circumscribed area measuring 0.4 by 0.3 cm. The specimen is sectioned into 4 pieces and submitted entirely in a single cassette. Due to shrinkage, measurements may be different than those at time of procedure. jn/dxv ICD-9 A; ZSD.176 ? Clerical Data A; 81291 The Characteristics of some immunohistochemical and immunofluorescence stains as well as in-situ hybridization tests were determined by the [facility] in ongoing production quality analyst and in compliance with regulations drawn from the Clinical Laboratory Improvement Act of 1988 (CLIA '88). These tests may rely on the use of analyte specific reagents that are subject to specific labeling requirements by the US FDA, and may only be performed in a facility that is certified by the [facility] as a high-complexity laboratory under CLIA '88. ??These tests are used for clinical purposes and are not investigational. ??For lab developed tests, the validation has been reviewed; the performance is considered acceptable for patient testing. Oniel Higgins MD LAB PATHOLOGY ORDERAB LES Final Result documented in this encounter Visit Diagnoses Not on filedocumented in this encounter Care Teams Assistant Manager Quality Management Relationship Specialty Start Date End Date No, Physician PCP - General 11/13/20 03/01/23 Chelsie Enriquez MD [address] [place] [id number] Consulting Physician Cardiology 11/13/20 documented as of this encounter
--- OUTSIDE RECORDS SUMMARY | 2024-06-14 21:29 | XMS_ITS | Encounter Summary ---
Author Organization [facility] Address [address] [place] [address] Care Team Providers Care Network Security Officer Name Role Phone Chelsie Enriquez MD Unavailable [phone] Treasure Johns NP Primary Care Provider [phone] Reason for Visit * Auth/Cert (Routine) Specialty Diagnoses / Procedures Referred By Contac t Referred To Contact Diagnoses Lipoma of torso Cyst of skin Lipoma of torso [D17.1] Cyst of skin [L72.9] Procedures NJ EXCISION TUMOR SOFT TISSUE BACK/FLANK SUBQ <3CM NJ EXC B9 LESION MRGN XCP SK TG T/A/L 0.5 CM/< NJ LAYR CLOS WND REST BODY <2.5 CM NJ REPAIR INTERMEDIATE F/E/E/N/L&/MUC 2.5 CM/< EXCISION OF CYST RIGHT BACK WITH INTERMIDATE REPAIR, EXCISION OF LIPOMA ON LEFT BACK WITH COMPLEX REPAIR (MAC WITH LOCAL, 1% LIDO WITH EPI) Referral ID Status Reason Start Date Expiration Date Visits Re quested Visits Authorized [id number] 1 1 Encounter Details Date Type Department Care Team (Late st Contact Info) Description 05/19/2023 10:05 AM CLERICAL ADJUSTER Anesthesia Event [facility] Operating Room [address] [place] [address] [place] [address] [facility] [address] [place] [address] Anesthesia Record Procedure Summary Procedure Name Responsible Anesthesiologist Anesthesia Start Time Anesthesia Stop Time EXCISION OF CYST RIGHT BACK WITH COMPLEX REPAIR, EXCISION OF LIPOMA ON LEFT BACK WITH COMPLEX REPAIR (Bilateral: Back) Cipriano Jeffery MD 05/19/23 1005 05/19/23 1054 Events Date Time Event Comment 05/19/2023 0804 1005 In Room 1005 An Start 1005 An Start Data 1009 Start Supplemental O2 1009 An Induction The patient was reevaluated immediately before moderate or deep sedation use and before anesthesia induction. 1009 Anesthesia Ready 1011 Proc Start 1018 Incision Start 1043 Proc Fin 1047 Out of Room 1048 an stop data 1054 Handoff to RN I completed my handoff to the receiving nurse during which we: 1. Patient identified 2. Responsible provider identified 3. Pertinent medical history reviewed 4. Procedure type and surgical course discussed 5. Intraoperative anesthetic management and any significant issues discussed 6. Expectations and concerns for postop period discussed 7. Questions solicited from receiving nurse 8. Patient disposition at the time of handoff: No value filed. 1054 An Stop Meds Name Total propofol 173.75 mg midazolam 2 mg ceFAZolin 2,000 mg glycopyrrolate 0.2 mg ketamine 10 mg/mL - 5 mL 50 mg lidocaine 2 % PF 80 mg sodium chloride 0.9% infusion 500 mL * Agents Name O2 * Blood No blood administrations on file. Lines, Drains, and Airways Type Details Placement Removal RETIRED Surgical Site 11/13/20; 1042; Le ft, Anterior, Lateral, Upper; Chest; Pacemaker pocket incision; 05/10/24 (Retired LDA, Removed/Completed by [employer]OGOten[employer] with LDA Utility); 1213 (Retired LDA, Removed/Completed by [employer] with LDA Utility) 11/13/20 1042 by Duncan Tariq RN 05/10/24 1213 by Discharge Provider, Automatic Peripheral IV Placement Date: 05/19/23; Placement Time: 08; Catheter Size: 20 G; Orientation: Anterior, Left; Location: Forearm; Site Prep: Alcohol; Technique: Anatomical landmarks; Inserted by: Jeanette; Insertion Attempts: 2; Patient Tolerance: Tolerated well; Removal Date: 05/19/23; Removal Time: 1208 05/19/23 0809 by Neli Grijalva RN 05/19/23 1208 by Neli Grijalva, RYAN RETIRED Surgical Site 05/19/23; 1032; Bilateral; Back; 05/10/24 (Retired LDA, Removed/Completed by [employer]ten[employer] with LDA Utility); 1213 (Retired LDA, Removed/Completed by [employer]ten[employer] with LDA Utility) 05/19/23 1032 by Estelle Casanova RN 05/10/24 1213 by Discharge Provider, Automatic documented in this encounter Social History Tobacco Use Types Packs/Day Years Used Date Smoking Tobacco: Some Days Cigarettes Last attempted to quit: 06/08/2020 Smokeless Tobacco: Never AUDIT-C Answer Date [...] on file 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 Gender Identity Not on file Sexual Orientation Not on file documented as of this encounter OR Notes * Anesthesia Postprocedure Evaluation - Sofia Dominguez CRNA - 05/19/2023 10:55 AM CST Patient: Joselito Lamar Procedure Summary Date: 05/19/23 Room / Location: [facility] OR OPERATING ROOM Anesthesia Start: 1005 Anesthesia Stop: 1054 Procedure: EXCISION OF CYST RIGHT BACK WITH COMPLEX REPAIR, EXCISION OF LIPOMA ON LEFT BACK WITH COMPLEX REPAIR (Bilateral: Back) Diagnosis: Lipoma of torso Cyst of skin (Lipoma of torso [D17.1]) (Cyst of skin [L72.9]) Providers: Marleni Desai MD Responsible Provider: Cipriano Jeffery MD Anesthesia Type: MAC ASA Status: 4 Anesthesia Type: MAC Last vitals BP 143/81 Pulse 80 Temp 36.2 ??C (97.2 ??F) (Temporal) Resp 20 SpO2 96% Anesthesia Post Evaluation Patient location during evaluation: PACU Patient participation: complete - patient participated 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 ICAL ADJUSTER * Anesthesia Preprocedure Evaluation - Cipriano Jeffery MD - 05/18/2023 7:54 AM CST Images from the original note were not included. Anesthesia Evaluation Joselito Lamar is a 62 y.o. male Procedure(s): EXCISION OF CYST RIGHT BACK WITH INTERMIDATE REPAIR, EXCISION OF LIPOMA ON LEFT BACK WITH COMPLEX REPAIR (MAC WITH LOCAL, 1% LIDO WITH EPI) Pre-Op Diagnosis Codes: * Lipoma of torso [D17.1] * Cyst of skin [L72.9] HISTORY Past Medical History Information obtained from: patient and chart. Neurological Psychiatric evaluation: ETOH abuse psychosis. Cardiovascular + Hypertension + CAD + Unknown stent(s) type - Prior stent(s) date: 2001. + CHF LVEF: 30-40%. + Atrial fibrillation/flutter - + Pacemaker/ICD - Year inserted / last revised: 2017. Pacemaker dependent: unknown Respiratory + Sleep apnea ([facility]) + Current smoker - Counseled to abstain from smoking the day of surgery. Patient refrained from smoking on day of surgery. Hepatic / Heme Hepatic/Heme system: negative Gastrointestinal GI system: negative Renal / + Nephrolithiasis Musculoskeletal/Pain Musculoskeletal/Pain system: negative Endocrine / Other + Diabetes mellitus - Diabetes type 2. Outpatient insulin use: none. + Obesity (BMI >30)- morbid obesity (BMI>40). 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 Diabetes mellitus without complication (CMS/HCC) (HCC) 03/02/2023 Diabetic foot ulcer (CMS/HCC) (HCC) 03/02/2023 High cholesterol 03/02/2023 Obesity (BMI 30.0-34.9) 03/02/2023 Tobacco dependence 03/02/2023 Lipoma of torso 03/02/2023 Dermoid cyst of skin of back 03/02/2023 Snoring 06/08/2021 Cardiomyopathy (HCC) 10/23/2020 Congestive heart failure (CMS/HCC) (HCC) 10/12/2020 Arteriosclerosis of coronary artery 02/04/2019 Carotid bruit 02/04/2019 Shortness of breath 12/17/2018 Tremor 09/06/2018 Atrial fibrillation (CMS/HCC) (HCC) 2018 Bradycardia 2018 Dizziness 2018 Presence of cardiac pacemaker 08/24/2018 Past Medical History: Diagnosis Date Arrhythmia A Flutter, a fib BPH (benign prostatic hyperplasia) CAD (coronary artery disease) Cellulitis right lower leg Diabetic neuropathy ([facility]) Difficulty breathing Hypertension Kidney stone Parkinson disease Parkinson disease Parkinson's disease Type 2 diabetes mellitus (HCC) Wound, open, foot 05/2020 ball of right foot Past Surgical History: Procedure Laterality Date ANKLE SURGERY leg/ankle CARDIAC PACEMAKER PLACEMENT CARDIAC STENT PLACEMENT CARPAL TUNNEL RELEASE ELBOW SURGERY TOE AMPUTATION Right VASECTOMY No Known Allergies Med List Status: Nurse Complete Set By: Jeanette Cerda RN at 05/12/2023 4:23 PM Taking? Last Dose Start Date End Date Provider allopurinoL (ZYLOPRIM) 100 mg tablet -- 02/27/23 -- Provider, MD Grace aspirin 81 mg enteric coated tablet -- -- -- Provider, MD Grace atorvastatin (LIPITOR) 20 mg tablet -- -- -- Grace Mcclure MD cetirizine (ZyrTEC) 10 mg tablet -- -- -- Grace Mcclure MD Coreg 25 mg tablet -- 06/08/69 -- Grace Mcclure MD Flovent HFA 44 mcg/actuation inhaler -- 02/27/23 -- Grace Mcclure MD folic acid (FOLVITE) 1 mg tablet -- -- -- ProviderGrace MD furosemide (LASIX) 40 mg tablet -- -- -- Grace Mcclure MD ipratropium-albuteroL (DUO-NEB) 0.5-2.5 mg/3 mL nebulizer solution -- 02/27/23 -- Grace Mcclure MD magnesium oxide 400 mg magnesium capsule -- -- -- Grace Mcclure MD metFORMIN (GLUCOPHAGE) 1,000 mg tablet -- 11/16/20 -- Sintia Arthur NP Take 1 tablet (1,000 mg total) by mouth daily with breakfast montelukast (SINGULAIR) 10 mg tablet -- -- -- ProviderGrace MD multivitamin capsule -- -- -- Grace Mcclure MD potassium chloride ER (potassium chloride ER) 20 mEq CR tablet -- -- -- Grace Mcclure MD tamsulosin (FLOMAX) 0.4 mg extended release capsule -- 03/30/23 -- Grace Mcclure MD valsartan (DIOVAN) 320 mg tablet -- 06/08/69 -- Grace Mcclure MD Xarelto 20 mg tablet -- 02/27/23 -- Grace Mcclure MD No current facility-administered medications for this encounter. Current Outpatient Medications: allopurinoL (ZYLOPRIM) 100 mg tablet aspirin 81 mg enteric coated tablet atorvastatin (LIPITOR) 20 mg tablet cetirizine (ZyrTEC) 10 mg tablet Coreg 25 mg tablet Flovent HFA 44 mcg/actuation inhaler folic acid (FOLVITE) 1 mg tablet furosemide (LASIX) 40 mg tablet ipratropium-albuteroL (DUO-NEB) 0.5-2.5 mg/3 mL nebulizer solution magnesium oxide 400 mg magnesium capsule metFORMIN (GLUCOPHAGE) 1,000 mg tablet montelukast (SINGULAIR) 10 mg tablet potassium chloride ER (potassium chloride ER) 20 mEq CR tablet tamsulosin (FLOMAX) 0.4 mg extended release capsule valsartan (DIOVAN) 320 mg tablet Xarelto 20 mg tablet multivitamin capsule Social History Tobacco Use Smoking Status Some Days Types: Cigarettes Last attempt to quit: 06/08/2020 Years since quittin.9 Smokeless Tobacco Never Alcohol Use: Not At Risk (05/12/2023) AUDIT-C Frequency of Alcohol Consumption: Monthly or less Average Number of Drinks: 1 or 2 Frequency of Binge Drinking: Never Substance and Sexual Activity Drug Use Never History reviewed. No pertinent family history. There were no vitals filed for this visit. PT: No results found for requested labs within last 30 days. INR: No results found for requested labs within last 30 days. APTT: No results found for requested labs within last 30 days. Hgb A1C: No results found for requested labs within last 30 days. CBC RBC: No results found for requested labs within last 30 days. RDW: No results found for requested labs within last 30 days. MCHC: No results found for requested labs within last 30 days. MCH: No results found for requested labs within last 30 days. MCV: No results found for requested labs within last 30 days. Hct: No results found for requested labs within last 30 days. Hgb: No results found for requested labs within last 30 days. WBC: No results found for requested labs within last 30 days. MPV: No results found for requested labs within last 30 days. Platelets: No results found for requested labs within last 30 days. RDW CV: No results found for requested labs within last 30 days. RDW Sd: No results found for requested labs within last 30 days. BMP Glucose: No results found for requested labs within last 30 days. Calcium: No results found for requested labs within last 30 days. Sodium: No results found for requested labs within last 30 days. Potassium: No results found for requested labs within last 30 days. CO2: No results found for requested labs within last 30 days. Chloride: No results found for requested labs within last 30 days. BUN: No results found for requested labs within last 30 days. Creatinine: No results found for requested labs within last 30 days. STOP-Bang Total Score: 4 DOS Physical Exam Medical history, medications, and allergies reviewed. Attestation: I endorse the findings of the anesthesia pre-evaluation assessment dated: 05/19/2023. Airway Exam: Mallampati: II Cervical ROM: FROM TM distance: >4 Cardiovascular Exam: Rate: regular Rhythm: regular Pulmonary Exam: LCTA, bilat EENT Exam: trachea midline Dental Exam: Upper dentures and missing Skin Exam: Skin is warm. Current state: Patient's current state is cooperative. Anesthesia Plan ASA 4 Planned anesthesia: MAC Induction: Induction: intravenous. Postoperative Plan: Postoperative administration opioids intended. No postoperative mechanical ventilation intended. Patient's planned disposition post procedure is Outpatient. Informed Consent: Discussed plan with attending and PRESIDENT AND CHIEF EXECUTIVE OFFICER. Anesthesia plan and risks discussed with patient. Consent and Attending signature: I and/or my designee have discussed the anesthesia plan, benefits, possible alternatives, parental presence at time of induction (if indicated), and clinically relevant risks that may include dental injury, unintentional awareness, and/or other complications. The patient and/or parent/legal guardian understand, and agree to proceed. All questions answered. ICAL ADJUSTER ICAL ADJUSTER documented in this encounter Plan of Treatment Not on file documented as of this encounter Visit Diagnoses Not on filedocumented in this encounter Administered Medications Inactive Administered Medications - up to 3 most recent administrations Medication Order MAR Action Action Date Dose Rate Site ceFAZolin (ANCEF) injection intravenous, Administer over 3 Minutes, As needed, Starting on Thu05/19/23 at 1012, Anesthesia Intra-op Given 05/19/2023 10:12 AM CLERICAL ADJUSTER 2,000 mg glycopyrrolate (ROBINUL) injection intravenous, Administer over 1 Minutes, As needed, Starting on Thu05/19/23 at 1005, Anesthesia Intra-op Given 05/19/2023 10:05 AM CLERICAL ADJUSTER 0.2 mg ketamine (KETALAR) 50 mg/5 mL (10 mg/mL) in sodium chloride 0.9% (premix) intravenous, As needed, Starting on Thu05/19/23 at 1009, Anesthesia Intra-op Given 05/19/2023 10:09 AM CLERICAL ADJUSTER 50 mg lidocaine (XYLOCAINE) 20 mg/mL (2 %) preservative free injection intravenous, As needed, Starting on Thu05/19/23 at 1009, Anesthesia Intra-op Given 05/19/2023 10:09 AM CLERICAL ADJUSTER 80 mg midazolam (VERSED) 1 mg/mL preservative free injection intravenous, Administer over 2 Minutes, As needed, Starting on Thu05/19/23 at 1005, Anesthesia Intra-op Given 05/19/2023 10:05 AM CLERICAL ADJUSTER 2 mg propofoL (DIPRIVAN) 10 mg/mL IV intravenous, Continuous PRN, Starting on Thu05/19/23 at 1009, Anesthesia Intra-op Rate/Dose Change 05/19/2023 10:13 AM CLERICAL ADJUSTER 35 mcg/kg/min 30.03 mL/hr New Bag 05/19/2023 10:09 AM CLERICAL ADJUSTER 50 mcg/kg/min 42.9 mL/h r sodium chloride 0.9% infusion 30 mL/hr, intravenous, Continuous, Starting on Thu05/19/23 at 0830, Pre-Op Restarted 05/19/2023 10:05 AM CLERICAL ADJUSTER New Bag 05/19/2023 8:06 AM CLERICAL ADJUSTER 30 mL/hr 30 mL/hr documented in this encounter Care Teams Network Security Officer Relationship Specialty Start Date End Date Treasure Johns NP [address] [address] PCP - General Family Medicine 03/02/23 Chelsie Enriquez MD [address] [place] [address] Consulting Physician Cardiology 11/13/20 documented as of this encounter
--- OUTSIDE RECORDS SUMMARY | 2024-06-14 21:29 | XMS_ITS | CONTINUITY OF CARE DOCUMENT ---
Author Name lai hoyt Address Unknown Organization [facility] Address [id number] [place] [address] [address] [place] [address] Phone [phone] Care Team Providers Care Shingle Inspector Name Role Phone Chelsie Enriquez MD Unavailable Chelsie Enriquez MD Unavailable RMUA BRANCH-BC, GURMEET Unavailable [phone] PROBLEMS Condition Status Date Provider Notes Snoring - MAURICE? active Chelsie Enriquez MD COVID-19 asymptomatic, no ex posure, testing results unknown or negative screening active Chelsie Enriquez MD Bradycardia, severe active Sudhakar Narayan Atrial Fibrillation active Sudhakar Narayan Atrial flutter active [facility] SOB active [facility] CAD- with stent active [facility] CHF active Gian Lee Cardiomyopathy active Gian Lee Carotid bruit active [facility] LBBB active Chelsie Enriquez MD Tremor active Chelsie Enriquez MD Dizziness active Sudhakar Narayan status post PM- dual - Biotr onik/ Gen change BiV PM Biotronik 11/13/20 ( MRI safe) active Gian Lee ENCOUNTERS Date Type Provider Location Encounter Diag nosis - In-person encounter Office Visit Chelsie Enriquez MD [place] [facility] - In-person encounter Office Visit Chelsie Enriquez MD [place] [facility] status post PM- dual - Biotronik/ Gen change BiV PM Biotronik 11/13/20 ( MRI safe) - In-person encounter Office Visit Chelsie Enriquez MD [place] [facility] - In-person encounter Office Visit Chelsie Enriquez MD [place] [facility] - In-person encounter Office Visit Chelsie Enriquez MD [place] [facility] - In-person encounter Office Visit Chelsie Enriquez MD [place] [facility] CHFCardiomyopathy - In-person encounter Office Visit Chelsie Enriquez MD [place] [facility] - In-person encounter Office Visit Chelsie Enriquez MD [place] [facility] - In-person encounter Office Visit Chelsie Enriquez MD [place] [facility] CAD- with stentCarotid bruit - In-person encounter Office Visit Chelsie Enriquez MD [place] [facility] - In-person encounter Office Visit Chelsie Enriquez MD [place] [facility] Atrial flutterSOB - In-person encounter Office Visit Chelsie Enriquez MD [place] [facility] TremorLBBB - In-person encounter Office Visit Chelsie Enriquez MD [place] [facility] - In-person encounter Office Visit Chelsie Enriquez MD [place] [facility] status post PM- dual - Biotronik/ Gen change BiV PM Biotronik 11/13/20 ( MRI safe)DizzinessBradycardi a, severeAtrial Fibrillation VITAL SIGNS Date Observation Value Provider blood pressure, cuff size regular Duane Cox RN blood pressure, diastolic 102 mm[Hg] Duane Cox RN blood pressure, systolic 160 mm[Hg] Jaiden Cox RN oxygen saturation, oximetry 96 % Jaiden Mcraes RN respiratory rate E&M 22 /min Jaiden Jonathon matthews RN pulse rate 81 /min Jaiden Mcraes RN Body Mass Index (Ratio) 36.41 kg/m2 [place] blood pressure, cuff size large Ke rri Gruenenfelder blood pressure, diastolic 100 mm[Hg] Ke rri Gruenenfelder blood pressure, systolic 160 mm[Hg] Que ri Rosendonfelder oxygen saturation, oximetry 98 % Aliyah Mavericker respiratory rate E&M 16 /min Aliyah Sharad manzanoeldziyad pulse rate 80 /min Aliyah Lenkae lder weight E&M 276 [lb_av] Aliyah Ashleynenfe lder height E&M 73 [in_i] Aliyah Gruenenfe lder blood pressure, diastolic 90 mm[Hg] nkLogic blood pressure, systolic 166 mm[Hg] Minerva kLogic Body Mass Index (Ratio) 34.64 kg/m2 [place] blood pressure, diastolic 90 mm[Hg] Jeb Goetz blood pressure, systolic 166 mm[Hg] Rehana Goetz oxygen saturation, oximetry 98 % Edmond Goetz respiratory rate E&M 16 /min Rufino Goetz pulse rate 82 /min Edmond burgos weight E&M 262.6 [lb_av] Edmond garciaon height E&M 73 [in_i] Edmond Cornelius ettaon height E&M 73 [in_i] Paulo shaffer Body Mass Index (Ratio) 34.17 kg/m2 [place] blood pressure, cuff size large Ke rri Gruenenfelder blood pressure, diastolic 90 mm[Hg] Ke rri Gruenenfelder blood pressure, systolic 148 mm[Hg] Ker ri Gruenenfelder oxygen saturation, oximetry 98 % Aliyah Gruenenfelder respiratory rate E&M 18 /min Aliyah G ruenenfelder pulse rate 79 /min Aliyah Gruenenfe lder weight E&M 259 [lb_av] Aliyah Gruenenfe lder height E&M 73 [in_i] Aliyah Gruenenfe er Body Mass Index (Ratio) 33.64 kg/m2 [place] blood pressure, cuff size large Ke rri Gruenenfelder blood pressure, diastolic 70 mm[Hg] Ke rri Gruenenfelder blood pressure, systolic 120 mm[Hg] Ker ri Gruenenfelder oxygen saturation, oximetry 98 % Aliyah Gruenenfelder respiratory rate E&M 16 /min Aliyah G ruenenfelder pulse rate 86 /min Aliyah Gruenenfe lder weight E&M 255 [lb_av] Aliyah Gruenenfe lder height E&M 73 [in_i] Aliyah Gruenenfe [facility] Body Mass Index (Ratio) 31.40 kg/m2 Valentin Enriquez MD blood pressure, cuff size regular Cy trey Pond blood pressure, diastolic 80 mm[Hg] Cy antonioa Salty blood pressure, systolic 140 mm[Hg] Hilda Pond oxygen saturation, oximetry 96 % Elodia Pond pulse rate 84 /min Elodia finney respiratory rate E&M 16 /min Elodia Pond weight E&M 238 [lb_av] Elodia finney height E&M 73 [in_i] Elodia finney Body Mass Index (Ratio) 30.61 kg/m2 [facility] blood pressure, cuff size regular Cy trey Pond blood pressure, diastolic 80 mm[Hg] Cy trey Pond blood pressure, systolic 134 mm[Hg] Hilda Pond oxygen saturation, oximetry 99 % Elodia Pond respiratory rate E&M 16 /min Elodia Pond pulse rate 88 /min Elodia finney weight E&M 232 [lb_av] Elodia finney height E&M 73 [in_i] Elodia finney Body Mass Index (Ratio) 29.81 kg/m2 Valentin Enriquez MD blood pressure, cuff size regular Cr zev Jeffery blood pressure, diastolic 90 mm[Hg] Cr zev Jeffery blood pressure, systolic 130 mm[Hg] Vera Jeffery oxygen saturation, oximetry 98 % Estelle Jeffery respiratory rate E&M 17 /min Estelle Jeffery pulse rate 87 /min Estelle amezcua weight E&M 226 [lb_av] Estelle amezcua height E&M 73 [in_i] sEtelle amezcua Body Mass Index (Ratio) 29.55 kg/m2 Jay Alvarenga blood pressure, diastolic 88 mm[Hg] Damian godoy Johnson blood pressure, systolic 140 mm[Hg] Selina Medinaam oxygen saturation, oximetry 98 % Nuria Johnson respiratory rate E&M 16 /min Nuria Johnson pulse rate 96 /min Viking Johnson weight E&M 224 [lb_av] Nuria Johnson height E&M 73 [in_i] [facility] Body Mass Index (Ratio) 29.55 kg/m2 Jord dc Cruzito blood pressure, diastolic, standing 90 mm [Hg] Viking Johnson blood pressure, systolic, standing 140 mm [Hg] [facility], [facility], sitting 80 mm[ Hg] [facility], systolic, sitting 138 mm[ Hg] [facility], diastolic 80 mm[Hg] [facility] blood pressure, systolic 138 mm[Hg] Selina peña [place] oxygen saturation, oximetry 98 % [facility] rate E&M 16 /min [facility] pulse rate 71 /min [facility] weight E&M 224 [lb_av] [facility] height E&M 73 [in_i] [facility] Body Mass Index (Ratio) 27.84 kg/m2 Quinn saavedra Helene blood pressure, diastolic 98 mm[Hg] [facility], systolic 148 mm[Hg] Selina peña [place] oxygen saturation, oximetry 99 % [facility] respiratory rate E&M 16 /min [facility] pulse rate 70 /min [facility] weight E&M 211 [lb_av] [facility] height E&M 73 [in_i] [facility] Body Mass Index (Ratio) 28.23 kg/m2 Quinn us Helene blood pressure, diastolic 80 mm[Hg] Da radha Joel blood pressure, systolic 132 mm[Hg] Dac ia Joel oxygen saturation, oximetry 98 % Ariana Joel respiratory rate E&M 16 /min Ariana V oss pulse rate 71 /min Ariana Joel weight E&M 214 [lb_av] Ariana Joel height E&M 73 [in_i] Ariana Joel Body Mass Index (Ratio) 29.42 kg/m2 Quinn Narayan blood pressure, cuff size large Morro Templeer blood pressure, diastolic 54 mm[Hg] Morro Templeer blood pressure, systolic 96 mm[Hg] Que Ramírez oxygen saturation, oximetry 99 % Aliyah Templeer respiratory rate E&M 18 /min Aliyah Orourke ruenenfelder pulse rate 71 /min Aliyah Nunez lder weight E&M 223 [lb_av] Aliyah Nunez lder height E&M 73 [in_i] Aliyah Nunez lder ALLERGIES No Known Drug Allergies RESULTS Date Observation Value Provider Reference Range Interpretation Location magnesium, serum 1.7 mg/dL [facility] 1.6-2.3 activated partial thromboplastin time (aPTT) 28 s [facility] 24-33 prothrombin time (patient) 11.2 s [facility] 9.1-12.0 international normalized ratio (INR) 1.1 [facility] 0.9-1.2 basophil count, absolute 0.1 x10E3/uL [facility] 0.0-0.2 Eosinophil Absolute Count 0.3 X10E3/UL [facility] 0.0-0.4 monocyte count, blood, automated 0.7 X10E3/UL [facility] 0.1-0.9 lymphocyte count, blood, automated 1.6 X10E3/UL [facility] 0.7-3.1 Absolute Neutrophils 5.7 X10E3/UL [facility] 1.4-7.0 basophils as percent of blood leukocytes 1 % [facility] Not Estab. eosinophils as percent of blood leukocytes 4 % [facility] Not Estab. monocytes as percent of blood leukocytes 8 % [facility] Not Estab. lymphocytes as percent of blood leukocytes 19 % [facility] Not Estab. neutrophils as percent of blood leukocytes 68 % [facility] Not Estab. platelet count 263 X10E3/UL [facility] [phone]/07/ 03 red blood cell distribution width 13.1 % [facility] 11.6-15.4 mean corpuscular hemoglobin concentration, RBC 33.8 G/DL [facility] 31.5-35.7 mean corpuscular hemoglobin, RBC 33.1 pg [facility] 26.6-33.0 High mean corpuscular volume, RBC 98 fL [facility] 79-97 High hematocrit, blood 45.8 % [facility] 37.5-51.0 hemoglobin, blood 15.5 g/dL [facility] 13.0-17.7 erythrocyte (RBC) count 4.68 X10E6/UL [facility] 4.14-5.80 leukocyte count, blood 8.4 X10E3/UL [facility] 3.4-10.8 alanine aminotransferase (SGPT), serum 27 1/L [facility] 0-44 aspartate aminotransferase (SGOT), serum 36 1/L [facility] 0-40 alkaline phosphatase, serum 181 1/L [facility] 48-121 High bilirubin, serum, total 1.5 mg/dL [facility] 0.0-1.2 High albumin/globulin ratio, serum 1.1 [facility] 1.2-2.2 Low globulin, serum 3.9 [facility] 1.5-4.5 albumin, serum 4.1 g/dL [facility] 3.8-4.8 protein, total, serum 8.0 g/dL [facility] 6.0-8.5 calcium, serum 9.7 mg/dL [facility] 8.6-10.2 carbon dioxide, venous blood 24 mmol/L [facility] 20-29 chloride, serum 105 mmol/L [facility] 96-106 potassium, serum 5.0 mmol/L [facility] 3.5-5.2 sodium, serum 142 mmol/L [facility] [phone]/07/ 03 urea nitrogen/creatinine ratio, serum 12 [facility] 10-24 eGFR if 74 mL/min/{1.7 3_m2} [facility] >59 eGFR if not 64 mL/min/{1.7 3_m2} [facility] >59 creatinine, serum 1.20 mg/dL [facility] 0.76-1.27 urea nitrogen, blood 14 mg/dL [facility] 8-27 blood glucose, random 122 mg/dL [facility] 65-99 High bacteria, urine microscopy None seen [facility] None seen/Few Crystal Type, Urine Calcium Oxalate [facility] N/A cast type, urinalysis Hyaline casts [facility] N/A hyaline casts, urine Present [facility] None seen Abnormal epithelial cells, urine None seen [facility] 0 - 10 RBC, Urine 0-2 /hpf [facility] 0 - 2 WBC urine on microscopy None seen /hpf [facility] 0 - 5 urinalysis, microscopic examination See below: [facility] nitrate, urine Negative [facility] Negative urobilinogen, urine, semiquantitative (dipstick) 0.2 [facility] 0.2-1.0 bilirubin, urine Negative [facility] Negative hemoglobin, urine, by dipstick 1+ [facility] Negative Abnormal ketones, urine, by test strip Negative [facility] Negative glucose, urine Negative [facility] Negative protein, urine, semiquantitative (dipstick) 1+ LinkLogic Negative/Tra ce Abnormal leukocyte esterase, urine, by dipstick Negative Link[facility] Negative appearance, urine Clear [facility] Clear urine color Yellow LinkLogic Yellow pH, urine, semiquantitative 5.0 [facility] 5.0-7.5 specific gravity, body fluid 1.024 [facility] 1.005-1.030 activated partial thromboplastin time (aPTT) 27 s [facility] 24-33 prothrombin time (patient) 10.4 s [facility] 9.1-12.0 international normalized ratio (INR) 1.0 [facility] 0.9-1.2 basophil count, absolute 0.1 x10E3/uL [facility] 0.0-0.2 Eosinophil Absolute Count 0.4 X10E3/UL [facility] 0.0-0.4 monocyte count, blood, automated 0.7 X10E3/UL [facility] 0.1-0.9 lymphocyte count, blood, automated 2.0 X10E3/UL [facility] 0.7-3.1 Absolute Neutrophils 4.5 X10E3/UL [facility] 1.4-7.0 basophils as percent of blood leukocytes 2 % [facility] Not Estab. eosinophils as percent of blood leukocytes 5 % [facility] Not Estab. monocytes as percent of blood leukocytes 9 % [facility] Not Estab. lymphocytes as percent of blood leukocytes 26 % [facility] Not Estab. neutrophils as percent of blood leukocytes 58 % [facility] Not Estab. platelet count 304 X10E3/UL [facility] [phone]/06/ 05 red blood cell distribution width 13.0 % [facility] 11.6-15.4 mean corpuscular hemoglobin concentration, RBC 32.9 G/DL [facility] 31.5-35.7 mean corpuscular hemoglobin, RBC 33.5 pg [facility] 26.6-33.0 High mean corpuscular volume, RBC 102 fL [facility] 79-97 High hematocrit, blood 42.8 % [facility] 37.5-51.0 hemoglobin, blood 14.1 g/dL [facility] 13.0-17.7 erythrocyte (RBC) count 4.21 X10E6/UL [facility] 4.14-5.80 leukocyte count, blood 7.7 X10E3/UL [facility] 3.4-10.8 alanine aminotransferase (SGPT), serum 18 1/L [facility] 0-44 aspartate aminotransferase (SGOT), serum 20 1/L [facility] 0-40 alkaline phosphatase, serum 143 1/L [facility] 48-121 High bilirubin, serum, total 0.9 mg/dL [facility] 0.0-1.2 albumin/globulin ratio, serum 1.0 [facility] 1.2-2.2 Low globulin, serum 4.0 [facility] 1.5-4.5 albumin, serum 3.8 g/dL [facility] 3.8-4.8 protein, total, serum 7.8 g/dL [facility] 6.0-8.5 calcium, serum 10.1 mg/dL [facility] 8.6-10.2 carbon dioxide, venous blood 24 mmol/L [facility] 20-29 chloride, serum 106 mmol/L [facility] 96-106 potassium, serum 5.2 mmol/L [facility] 3.5-5.2 sodium, serum 142 mmol/L [facility] 451-246 1506/06/ 05 urea nitrogen/creatinine ratio, serum 19 [facility] 10-24 eGFR if 73 mL/min/{1.7 3_m2} [facility] >59 eGFR if not 63 mL/min/{1.7 3_m2} [facility] >59 creatinine, serum 1.22 mg/dL [facility] 0.76-1.27 urea nitrogen, blood 23 mg/dL [facility] 8-27 blood glucose, random 141 mg/dL [facility] 65-99 High lipoprotein, beta, serum, point, quantitative, calculated 70 mg/dL [facility] 0-99 very low density lipoproteins 20 mg/dL [facility] 5-40 HDL cholesterol, serum 61 mg/dL [facility] >39 triglyceride, serum, random 102 mg/dL [facility] 0-149 cholesterol, serum 151 mg/dL [facility] [phone]/09/ 24 calcium, serum 9.8 mg/dL [facility] 8.6-10.2 carbon dioxide, venous blood 24 mmol/L [facility] 20-29 chloride, serum 107 mmol/L [facility] 96-106 High potassium, serum 4.4 mmol/L [facility] 3.5-5.2 sodium, serum 144 mmol/L [facility] [phone]/09/ 24 urea nitrogen/creatinine ratio, serum 15 [facility] 10-24 eGFR if 96 mL/min/{1.7 3_m2} [facility] >59 eGFR if not 83 mL/min/{1.7 3_m2} [facility] >59 creatinine, serum 0.98 mg/dL [facility] 0.76-1.27 urea nitrogen, blood 15 mg/dL [facility] 8-27 blood glucose, random 93 mg/dL [facility] 65-99 prothrombin time (patient) 12.8 s [facility] 9.1-12.0 High international normalized ratio (INR) 1.2 [facility] 0.8-1.2 HISTORY OF MEDICATION USE Medication Status Instructions Dates Provider Indications Com ments diltiazem HCl 90 mg tablet active TAKE ONE TABLET BY MOUTH TWICE DAILY @ 9AM & 5PM Octavio White magnesium oxide 400 mg (241.3 mg magnesium) tablet active TAKE ONE TABLET BY MOUTH TWICE DAILY Octavio White Xarelto 20 mg tablet active TAKE ONE TABLET BY MOUTH DAILY AT 5PM EVERY EVENING Tonya Nixon atorvastatin 20 mg tablet active TAKE ONE TABLET BY MOUTH DAILY AT 5PM Radha Luque RN diltiazem HCl 90 mg tablet completed TAKE ONE TABLET BY MOUTH TWICE DAILY @ 9AM-5PM - Shyanne Pereira Xarelto 20 mg tablet completed Take 1 tablet by mouth every evening - Tylor Dick Atrial Fibrillation diltiazem HCl 90 mg tablet completed TAKE 1 TABLET BY MOUTH TWICE DAILY - Margaret Grabiel melatonin 12 mg tablet active one tab HS Jaiden Cox RN Coreg 25 mg tablet active 2 tabs twice daily Jaiden Cox RN valsartan 320 mg tablet active 1 tab daily Jaiden Cox RN furosemide 40 mg tablet active one tab daily Jaiden Cox RYAN diltiazem HCl 90 mg tablet completed 1 tablet by mouth twice a day - Lyly Galan magnesium oxide 400 mg (241.3 mg magnesium) tablet completed Take 1 tablet by mouth twice a day - Aliyah Ramírez Xarelto 20 mg tablet completed Take 1 tablet every night increased dose. - Gian Lee CEPHALEXIN 500 MG ORAL CAPSULE completed one capsule each 8 hours for 10 days - Edmond Goetz PERCOCET 5-325 MG ORAL TABLET completed one tablet each 6 hours PRN moderate pain - Edmond Goetz metoprolol tartrate 50 mg tablet completed 1 tablet twice a day - Gian Lee lisinopril 20 mg tablet completed Take 1 tablet once a day - Alicia Vaughan Lasix 40 mg tablet completed Take 1 tablet by mouth once a day - Alicia Vaughan potassium chloride 20 mEq tablet,ER particles/cryst als active 1 tablet once a day Aliyah Ramírez Singulair 10 mg tablet active 1 tablet once a day Aliyah Ramírez cetirizine 10 mg tablet completed once a day as needed - Aliyah Ramírez Xarelto 20 mg tablet completed Take 1 tablet every night increased dose. - Gian Lee COUMADIN 5 MG ORAL TABLET completed one tablet daily, come to office for INR check in one week. - Hali Guajardo tamsulosin 0.4 mg capsule completed Take 1 capsule once a day - Elodia Pond atorvastatin 20 mg tablet completed Take 1 tablet by mouth once a day - Tylor Dick metformin 1,000 mg tablet extended release 24hr active Take 1 tablet once a day Elodia Pond DILTIAZEM HCL 60 MG ORAL TABLET completed TAKE 1 TABLET BY MOUTH THREE TIMES DAILY - Aliyah Ramírez AMIODARONE HCL 200 MG ORAL TABLET completed ONE TAB once a day - [facility] HYDROXYZINE PAMOATE 50 MG ORAL CAPSULE completed take 1 tab four times daily as needed - Aliyah Ramírez #120, 30 days supply, Prescribed by CAROLINE CRAIN, Filled 12/16/2018 CARBIDOPA-LEVOD OPA ER 50-200 MG ORAL TABLET EXTENDED RELEASE completed TAKE 2 TABLETS BY MOUTH EVERY 6 HOURS - Elodia Pond #240, 30 days supply, Prescribed by RAMY QUIGLEY, Filled 12/07/2018 LEVOFLOXACIN 500 MG ORAL TABLET completed one tab once daily for 14 days. Generic preferred. - Sudhakar Littlejohnon CLINDAMYCIN HCL 150 MG ORAL CAPSULE completed one tab three times daily for 14 days - Sudhakar Narayan magnesium oxide 400 mg (241.3 mg magnesium) tablet completed 1 tablet twice a day - Aliyah Ramírez folic acid 1 mg tablet active Take 1 once a day Aliyah Ramírez aspirin 81 mg tablet,delayed release (DR/EC) active 1 tablet by mouth once a day Aliyah Ramírez thiamine HCl (vitamin B1) 100 mg tablet active Take 1 once a day Aliyah Ramírez XARELTO 15 MG ORAL TABLET completed take one pill a day - Hali Guajardo MULTIVITAMINS CAPS active 1 tablet once a day Aliyah Ramírez CELEXA 20 MG ORAL TABLET completed take one pill a day - Elodia Pond LIPITOR 20 MG ORAL TABLET completed ONE TAB. DAILY - Chelsie Enriquez MD LISINOPRIL 10 MG ORAL TABLET completed half a TAB. DAILY - Chelsie Enriquez MD HYDROCODONE-ASA TAMINOPHEN 5-325 MG ORAL TABLET completed take when needed - Nuria Johnson CEPHALEXIN 500 MG ORAL CAPSULE completed take till gone - Nuria Johnson SOCIAL HISTORY Date Observation Value Provider social history E&M S moking History: Aram miesha is a former smoker. Octavio White smoking, year quit 2018 Octavio andrade smoking history, tot al pack/day 1/2 ppd Octavio hWite cigarette use yes Octavio White smoking status Former smoker Octavio White social history reviewed E&M revi ewed - no changes required Octavio White social history E&M S moking History: Aram whiteside is a former smoker. Gian Lee social history reviewed E&M revi ewed - no changes required Gian Lee smoking, year quit 2018 Aliyah Janu enenfelder smoking history, tot al pack/day 1/2 ppd Aliyah Gruenenfelder cigarette use yes Aliyah Lenka elder smoking status Former smoker Aliyah Ramirezne nfelder social history reviewed E&M revi ewed - no changes required Haily Gaines NP smoking, year quit 2018 Edmond Goetz smoking history, tot al pack/day 1/2 ppd Edmond Goetz cigarette use yes Edmond garcia smoking status Former smoker Edmond Neri social history E&M S moking History: Aram whiteside is a former smoker. Gian Lee social history reviewed E&M revi ewed - no changes required Gian Lee smoking, year quit 2018 Wicho Wilkins smoking history, tot al pack/day 1/2 ppd Paulo Wilkins cigarette use yes Paulo Cifuentes dio smoking status Former smoker Paulo diaz social history E&M S moking History: Aram whiteside is a former smoker. Gian Lee social history reviewed E&M revi ewed - no changes required Gian Lee smoking, year quit 2018 Aliyah Hardy enenfelder smoking history, tot al pack/day 1/2 ppd Aliyah Gruenenfelder cigarette use yes Aliyah Lenka elder smoking status Former smoker Aliyah Gruene nfelder social history E&M S moking History: Aram whiteside is a former smoker. Leeannadenilson Jesus social history reviewed E&M revi ewed - no changes required Gian Lee smoking, year quit 2018 Aliyah Hardy enthuer smoking history, tot al pack/day 1/2 ppd Aliyah Robbinsnfelder cigarette use yes Aliyah Og elder smoking status Former smoker Aliyah Robbins nfelder smoking, year quit 2018 Elodia Janes coleman smoking history, tot al pack/day 1/2 ppd Elodia Pond cigarette use yes Elodia Glasslaurie moon smoking status Former smoker Elodia Glass saba social history reviewed E&M revi ewed - no changes required Oz Cruzito smoking, year quit 2018 Elodia coleman smoking history, tot al pack/day 1/2 ppd Elodia Pond cigarette use yes Elodia Marlon ll smoking status Former smoker Elodia Glass saba social history reviewed E&M revi ewed - no changes required Oz Cruzito cigarette use yes Estelle Diana ms smoking status Former smoker Estelle jamams social history E&M S moking History: Aram whiteside is a former smoker. Reggie Alvarenga social history reviewed E&M revi ewed - no changes required Reggie Alvarenga smoking, year quit 2018 Nuria I ngram smoking history, tot al pack/day 1/2 ppd Nuria Johnson cigarette use yes Viking Johnson smoking status Former smoker Nuria Ingr am social history reviewed E&M revi ewed - no changes required Oz Cruzito smoking, year quit 2018 Viking I ngram smoking history, tot al pack/day 1/2 ppd Viking Johnson cigarette use yes Viking Johnson smoking status Former smoker Nuria Ingr am social history reviewed E&M revi ewed - no changes required Chelsie Enriquez MD social history E&M S moking History: Aram whiteside is a former smoker. Chelsie Enriquez MD smoking, year quit 2018 Nuria Alejandre ngram smoking history, tot al pack/day 1/2 ppd Nuria Johnson cigarette use yes Viking Johnson smoking status Former smoker Nuria Ingr am social history reviewed E&M revi ewed - no changes required Sudhakar Narayan social history E&M S moking History: Aram whiteside is a former smoker. Sudhakar Narayan smoking, year quit 2018 Ariana Joe s smoking history, tot al pack/day 1/2 ppd Ariana Joel cigarette use yes Ariana Joel smoking status Former smoker Ariana Joel social history reviewed E&M revi ewed - no changes required Sudhakra Narayan social history E&M S moking History: Aram whiteside is a former smoker. Sudhakar Narayan number of grandchildren Chelsie Narayan smoking history, tot al pack/day 1/2 ppd Aliyah Templeer smoking, year quit 2018 Aliyah khoury cigarette use yes Aliyah Robbinsnf elder smoking status Former smoker Aliyah Robbins nfelder FUNCTIONAL STATUS Date Observation Value Provider HRA, CV Assess/Plan, Angina (inactive) Management Plan continue current therapy Octavio White HRA, CV Assess/Plan, Angina (inactive) Management Plan continue current therapy Gian Lee HRA, CV Assess/Plan, Angina (inactive) Management Plan continue current therapy Haily Gaines NP HRA, CV Assess/Plan, Angina (inactive) Management Plan continue current therapy Gian Lee HRA, CV Assess/Plan, Angina (inactive) Management Plan continue current therapy Gian Lee HRA, CV Assess/Plan, Angina (inactive) Management Plan continue current therapy Gian Lee HRA, CV Assess/Plan, Angina (inactive) Management Plan continue current therapy [facility] HRA, CV Assess/Plan, Angina (inactive) Management Plan continue current therapy [facility] FAMILY HISTORY Family Member Condition Father Negative [facility] Mother Negative [facility] INSURANCE PROVIDERS Payer name Policy type / Coverage type [place] red constitution party ID [employer] Other [place] MED[place] Medicare AARP MEDICARE ADVANTAGE ([facility] COMPLETE PPO) Other [id number] [facility] Medicaid 3 [id number] ADVANCE DIRECTIVES Name Date DISCUSSED - NO DECISION MADE TREATMENT PLAN Date Name Performer [id number],C, H is updated medication list for this problem includes: Coreg 25 Mg Tablet (Carvedilol) ..... 2 tabs twice daily Valsartan 320 Mg Tablet (Valsartan) ..... 1 tab daily Furosemide 40 Mg Tablet (Furosemide) ..... One tab daily Diltiazem Hcl 90 Mg Tablet (Diltiazem hcl) ..... 1 tablet by mouth twice a day Aspirin 81 Mg Tablet,delayed Release (dr/ec) (Aspirin) ..... 1 tablet by mouth once a day Orders: Aram hayes 04-27 (CPT-[id number]) Chelsie Enriquez MD [id number],Chelsie Marrero MD [id number],W,i ncrtease diltiazem to 2 tabs fo 90 mg UDAY bid His updated medication list for this problem includes: Coreg 25 Mg Tablet (Carvedilol) ..... 2 tabs twice daily Aspirin 81 Mg Tablet,delayed Release (dr/ec) (Aspirin) ..... 1 tablet by mouth once a day Orders: Aram hayes 04-27 (CPT-[id number]) [facility] (CPT-27992) Chelsie Enriquez MD [id number],W,i ncrtease diltiazem to 2 tabs fo 90 mg UDAY bid Orders: P freddy - (CPT-10283) His updated medication list for this problem includes: Coreg 25 Mg Tablet (Carvedilol) ..... 2 tabs twice daily Aspirin 81 Mg Tablet,delayed Release (dr/ec) (Aspirin) ..... 1 tablet by mouth once a day Chelsie Enriquez MD [id number],S, E F 35% by echo today which is unchanged from previous p t complains of being tired. denies SOB s /p BiV-ppm His updated medication list for this problem includes: Aspirin 81 Mg Tablet,delayed Release (dr/ec) (Aspirin) ..... 1 tablet by mouth once a day Metoprolol Tartrate 50 Mg Tablet (Metoprolol tartrate) ..... 1 tablet twice a day Octavio White [id number],S, s /p upgrade to BIV PPM on 11/13/2020 Octavio White [id number],S, A V paced. C onverted on his own after device implant. Normal function. H e did not undergo cardioversion as he rescheduled due to financial issues Janes loco for noac. His updated medication list for this problem includes: Aspirin 81 Mg Tablet,delayed Release (dr/ec) (Aspirin) ..... 1 tablet by mouth once a day Metoprolol Tartrate 50 Mg Tablet (Metoprolol tartrate) ..... 1 tablet twice a day Octavio White [id number],S, c hest pain free His updated medication list for this problem includes: Aspirin 81 Mg Tablet,delayed Release (dr/ec) (Aspirin) ..... 1 tablet by mouth once a day Metoprolol Tartrate 50 Mg Tablet (Metoprolol tartrate) ..... 1 tablet twice a day Octavio White [id number],W, R A lead may be malfunctioning c heck CXR today m ay need RA lead repositioning or replacement Octavio White [id number],S, s /p BiV-PPM Octavio Estrellalucita [id number],B, n ormal function p acemaker dependent Gian Lee [id number],B, s /p upgrade to BIV PPM on 11/13/2020 E cho from [facility] 10/06/2020 showed: L v mildly enlarged L VEF 35-40% P acemaker leads m ild MR Orders: C omplete Echo (CPT-21813) Gian Lee [id number],B, A V paced. C onverted on his own after device implant. Normal function. H david did not undergo cardioversion as he rescheduled due to financial issues C juan francisco loco for noac. LAbs showed appropriate renal function, increase to 20 once daily His updated medication list for this problem includes: Aspirin 81 Mg Tablet,delayed Release (dr/ec) (Aspirin) ..... 1 tablet by mouth once a day Metoprolol Tartrate 50 Mg Tablet (Metoprolol tartrate) ..... 1 tablet twice a day Gian Lee [id number],S, s /p DC PPM. P PM dependent Haily Gaines NP [id number],W,I n a flutter today on EKG, controlled rate, hx of CDVN in 2019 with successful CDVN to SR l ast device interrogation a few weeks ago w/o AF P re CDVN lab work today S chedule CDVN within the next few weeks, no LAURA needed, continue beronica Gaines NP Telehealth: H is updated medication list for this problem includes: Coreg 25 Mg Tablet (Carvedilol) ..... 2 tabs twice daily Valsartan 320 Mg Tablet (Valsartan) ..... 1 tab daily Furosemide 40 Mg Tablet (Furosemide) ..... One tab daily Diltiazem Hcl 90 Mg Tablet (Diltiazem hcl) ..... 1 tablet by mouth twice a day Aspirin 81 Mg Tablet,delayed Release (dr/ec) (Aspirin) ..... 1 tablet by mouth once a day Orders: Aram hayes 04-27 (CPT-[id number]) Chelsie Enriquez MD Telehealth Chelsie amezcua MD Telehealth:incrtease diltiazem to 2 tabs fo 90 mg UDAY bid His updated medication list for this problem includes: Coreg 25 Mg Tablet (Carvedilol) ..... 2 tabs twice daily Aspirin 81 Mg Tablet,delayed Release (dr/ec) (Aspirin) ..... 1 tablet by mouth once a day Orders: Aram hayes 04-27 (CPT-61005) [facility] (CPT-18127) Chelsie Enriquez MD Telehealth:incrtease diltiazem to 2 tabs fo 90 mg UDAY bid Orders: Aram hayes 04-27 (CPT-35183) His updated medication list for this problem includes: Coreg 25 Mg Tablet (Carvedilol) ..... 2 tabs twice daily Aspirin 81 Mg Tablet,delayed Release (dr/ec) (Aspirin) ..... 1 tablet by mouth once a day Chelsie Enriquez MD Electrophysiology: E F 35% by echo today which is unchanged from previous p t complains of being tired. denies SOB s /p BiV-ppm His updated medication list for this problem includes: Aspirin 81 Mg Tablet,delayed Release (dr/ec) (Aspirin) ..... 1 tablet by mouth once a day Metoprolol Tartrate 50 Mg Tablet (Metoprolol tartrate) ..... 1 tablet twice a day Octavio White Electrophysiology: s /p upgrade to BIV PPM on 11/13/2020 Octavio White Electrophysiology: A V paced. C onverted on his own after device implant. Normal function. H e did not undergo cardioversion as he rescheduled due to financial issues Janes loco for noac. His updated medication list for this problem includes: Aspirin 81 Mg Tablet,delayed Release (dr/ec) (Aspirin) ..... 1 tablet by mouth once a day Metoprolol Tartrate 50 Mg Tablet (Metoprolol tartrate) ..... 1 tablet twice a day Octavio White Electrophysiology: c hest pain free His updated medication list for this problem includes: Aspirin 81 Mg Tablet,delayed Release (dr/ec) (Aspirin) ..... 1 tablet by mouth once a day Metoprolol Tartrate 50 Mg Tablet (Metoprolol tartrate) ..... 1 tablet twice a day Octavio White Electrophysiology: R A lead may be malfunctioning c heck CXR today m ay need RA lead repositioning or replacement Octavio White Electrophysiology: s /p BiV-PPM [facility]: n ormal function p acemaker dependent Gian Lee Electrophysiology: s /p upgrade to BIV PPM on 11/13/2020 E cho from [facility] 10/06/2020 showed: L v mildly enlarged L VEF 35-40% P acemaker leads m ild MR Orders: C omplete Echo (CPT-48863) Gian Lee Electrophysiology: A V paced. C onverted on his own after device implant. Normal function. H e did not undergo cardioversion as he rescheduled due to financial issues Janes loco for noac. LAbs showed appropriate renal function, increase to 20 once daily His updated medication list for this problem includes: Aspirin 81 Mg Tablet,delayed Release (dr/ec) (Aspirin) ..... 1 tablet by mouth once a day Metoprolol Tartrate 50 Mg Tablet (Metoprolol tartrate) ..... 1 tablet twice a day Gian Lee Electrophysiology: s /p DC PPM. P PM dependent Haily Gaines NP Electrophysiology:In a flutter today on EKG, controlled rate, hx of CDVN in 2019 with successful CDVN to SR l ast device interrogation a few weeks ago w/o AF P re CDVN lab work today S chedule CDVN within the next few weeks, no LAURA needed, continue xarelto Haily Gaines NP Electrophysiology ho spital Follow up: s /p upgrade to BIV PPM on 11/13/2020 E cho from [facility] 10/06/2020 showed: L v mildly enlarged L VEF 35-40% P acemaker leads m ild MR & #13;His updated medication list for this problem includes: Metoprolol Tartrate 50 Mg Oral Tablet (Metoprolol tartrate) ..... One tab. twice daily Lisinopril 20 Mg Oral Tablet (Lisinopril) ..... One tab. daily Lasix 40 Mg Oral Tablet (Furosemide) ..... One tab by mouth daily Aspirin Adult Low Dose 81 Mg Oral Tablet Delayed Release (Aspirin) ..... One tab by mouth daily Gian Lee Electrophysiology ho spital Follow up: sindy arshad controlled His updated medication list for this problem includes: Metoprolol Tartrate 50 Mg Oral Tablet (Metoprolol tartrate) ..... One tab. twice daily Aspirin Adult Low Dose 81 Mg Oral Tablet Delayed Release (Aspirin) ..... One tab by mouth daily Leeannadenilson Jesus : O rders: 9 9214 MOD 30-39min (CPT-61016) P molly Rai-V Leyla AGUILA (*) The following medications were removed from the medication list: Diltiazem Hcl 60 Mg Oral Tablet (Diltiazem hcl) ..... Take 1 tablet by mouth three times daily His updated medication list for this problem includes: Metoprolol Tartrate 50 Mg Oral Tablet (Metoprolol tartrate) ..... One tab. twice daily Lisinopril 20 Mg Oral Tablet (Lisinopril) ..... One tab. daily Aspirin Adult Low Dose 81 Mg Oral Tablet Delayed Release (Aspirin) ..... One tab by mouth daily Gian Lee : O rders: P molly Rai-V - CNE (*) The following medications were removed from the medication list: Diltiazem Hcl 60 Mg Oral Tablet (Diltiazem hcl) ..... Take 1 tablet by mouth three times daily His updated medication list for this problem includes: Metoprolol Tartrate 50 Mg Oral Tablet (Metoprolol tartrate) ..... One tab. twice daily Lisinopril 20 Mg Oral Tablet (Lisinopril) ..... One tab. daily Lasix 40 Mg Oral Tablet (Furosemide) ..... One tab by mouth daily Aspirin Adult Low Dose 81 Mg Oral Tablet Delayed Release (Aspirin) ..... One tab by mouth daily Gian Lee : sindy martinez His updated medication list for this problem includes: Metoprolol Tartrate 50 Mg Oral Tablet (Metoprolol tartrate) ..... One tab. twice daily Aspirin Adult Low Dose 81 Mg Oral Tablet Delayed Release (Aspirin) ..... One tab by mouth daily Gian Lee : O rders: Aram AGUILA (*) N YHA class 3 sx The following medications were removed from the medication list: Diltiazem Hcl 60 Mg Oral Tablet (Diltiazem hcl) ..... Take 1 tablet by mouth three times daily His updated medication list for this problem includes: Metoprolol Tartrate 50 Mg Oral Tablet (Metoprolol tartrate) ..... One tab. twice daily Lisinopril 20 Mg Oral Tablet (Lisinopril) ..... One tab. daily Lasix 40 Mg Oral Tablet (Furosemide) ..... One tab by mouth daily Aspirin Adult Low Dose 81 Mg Oral Tablet Delayed Release (Aspirin) ..... One tab by mouth daily Gian Lee :Echo from [facility] 10/06/2020 showed: L v mildly enlarged L VEF 35-40% Aram diggs ild MR Orders: Aram AGUILA (*) The following medications were removed from the medication list: Diltiazem Hcl 60 Mg Oral Tablet (Diltiazem hcl) ..... Take 1 tablet by mouth three times daily His updated medication list for this problem includes: Metoprolol Tartrate 50 Mg Oral Tablet (Metoprolol tartrate) ..... One tab. twice daily Lisinopril 20 Mg Oral Tablet (Lisinopril) ..... One tab. daily Lasix 40 Mg Oral Tablet (Furosemide) ..... One tab by mouth daily Aspirin Adult Low Dose 81 Mg Oral Tablet Delayed Release (Aspirin) ..... One tab by mouth daily Gian Lee :Orders: P acemaker Bi-V - CNE (*) normal function p acemaker dependent Willis Clinical Findings A T/AF [place]: 0.0% % Pacing: RA - 58% RV - 95% T ransthoracic Impedance: 64.0 ohms today c ompared to baseline of 67.0 ohms Leeannadenilson Jesus Electrophysiology ho spital follow up : H is updated medication list for this problem includes: Diltiazem Hcl 60 Mg Oral Tablet (Diltiazem hcl) ..... Take one tablet by mouth three times daily, patient not taking cardizem cd or amiodarone Aspirin Adult Low Dose 81 Mg Oral Tablet Delayed Release (Aspirin) ..... One tab by mouth daily [facility] Electrophysiology ho spital follow up : H is updated medication list for this problem includes: Aspirin Adult Low Dose 81 Mg Oral Tablet Delayed Release (Aspirin) ..... One tab by mouth daily [facility] Electrophysiology ho spital follow up : H is updated medication list for this problem includes: Diltiazem Hcl 60 Mg Oral Tablet (Diltiazem hcl) ..... Take one tablet by mouth three times daily, patient not taking cardizem cd or amiodarone Aspirin Adult Low Dose 81 Mg Oral Tablet Delayed Release (Aspirin) ..... One tab by mouth daily [facility] Electrophysiology ho spital follow up : O rders: 9 9212 Minor (CPT-60465) [facility] Cardiology - stop li sinopril: O rders: F VC - 07704 (52056) F RC - 12145 (69689) D LCO - 23521 (72765) C omplete Echo (CPT-55022) S tress Regadenoson (CPT-04907) 9 9213 LTD. Complex (CPT-86882) [facility] Cardiology - stop li sinopril: T he following medications were removed from the medication list: Amiodarone Hcl 200 Mg Oral Tablet (Amiodarone hcl) ..... One tab once a day His updated medication list for this problem includes: Aspirin Adult Low Dose 81 Mg Oral Tablet Delayed Release (Aspirin) ..... One tab by mouth daily Orders: E KG (CPT-05371) F VC - 25568 (08074) F RC - 12187 (15824) D LCO - 71115 (42639) C omplete Echo (CPT-82669) S tress Regadenoson (CPT-47638) 9 9213 LTD. Complex (CPT-67945) [facility] Cardiology - stop li sinopril: H is updated medication list for this problem includes: Cardizem Cd 240 Mg Oral Capsule Extended Release 24 Hour (Diltiazem hcl coated beads) ..... One daily at night Aspirin Adult Low Dose 81 Mg Oral Tablet Delayed Release (Aspirin) ..... One tab by mouth daily Lisinopril 10 Mg Oral Tablet (Lisinopril) ..... Half a tab. daily Orders: F VC - 72619 (27804) F RC - 72110 (33225) D LCO - 09016 (73320) C omplete Echo (CPT-22879) S tress Regadenoson (CPT-65660) 9 9213 LTD. Complex (CPT-39080) [facility] Cardiology - stop li sinopril: Pt cannot have walking stress test due to presence of ventricular pacing. H is updated medication list for this problem includes: Cardizem Cd 240 Mg Oral Capsule Extended Release 24 Hour (Diltiazem hcl coated beads) ..... One daily at night Aspirin Adult Low Dose 81 Mg Oral Tablet Delayed Release (Aspirin) ..... One tab by mouth daily Lisinopril 10 Mg Oral Tablet (Lisinopril) ..... Half a tab. daily Orders: F VC - 75742 (82824) F RC - 60150 (72927) D LCO - 60901 (49830) C omplete Echo (CPT-91848) S tress Regadenoson (CPT-52535) 9 9213 LTD. Complex (CPT-62275) [facility] Cardiology - stop li sinopril: O rders: F VC - 82979 (05257) F RC - 41999 (56672) D LCO - 57579 (36755) C omplete Echo (CPT-55369) S tress Regadenoson (CPT-47678) 9 9213 LTD. Complex (CPT-39350) [facility] Electrophysiology:s/ p DC PPM 08/24/18. s /p LAURA/ EP study and CDVN 12/24/2018, successful CDVN into a normal rhythm. Reggie Alvarenga Electrophysiology:Im planted 08/24/18. N ormal function. Reggie Alvarenga Electrophysiology:PF T's 12/21/2018 result were withi normal limits, normal pulmonary function. Will repeat in 6 months. On amiodarone 200 mg once daily. Reggie Alvarenga Electrophysiology:PF T's 12/21/2018 result were withi normal limits, normal pulmonary function. Will repeat in 6 months. On amiodarone 200 mg once daily. s /p LAURA/ EP study and CDVN 12/24/2018, successful CDVN into a normal rhythm. O n amiodarone 200 mg once daily. Follow up with me in 6 weeks. Will stop amiodarone and Rx Sotalol at that time. Reggie Alvarenga Electrophysiology: H is updated medication list for this problem includes: Aspirin Adult Low Dose 81 Mg Oral Tablet Delayed Release (Aspirin) ..... One tab by mouth daily Lisinopril 10 Mg Oral Tablet (Lisinopril) ..... One tab. daily Orders: F VC - 25220 (00383) F RC - 13312 (38700) D LCO - 27125 (13082) [facility] Electrophysiology: O rders: F VC - 20599 (30944) F RC - 24458 (43918) D LCO - 29355 (31053) [facility] Electrophysiology: I mplanted 08/24/18. N ormal function. [facility] Electrophysiology:s/ p DC PPM 08/24/18. O rders: T EE/CV - GC (*) His updated medication list for this problem includes: Aspirin Adult Low Dose 81 Mg Oral Tablet Delayed Release (Aspirin) ..... One tab by mouth daily [facility] Electrophysiology: H is updated medication list for this problem includes: Aspirin Adult Low Dose 81 Mg Oral Tablet Delayed Release (Aspirin) ..... One tab by mouth daily Lisinopril 10 Mg Oral Tablet (Lisinopril) ..... One tab. daily [facility] Electrophysiology: s /p DC PPM. His updated medication list for this problem includes: Aspirin Adult Low Dose 81 Mg Oral Tablet Delayed Release (Aspirin) ..... One tab by mouth daily Lisinopril 10 Mg Oral Tablet (Lisinopril) ..... One tab. daily Chelsie Enriquez MD Electrophysiology: I mplanted 08/24/18. N ormal function. Chelsie Enriquez MD Electrophysiology:NO CARDIAC MEDICATIONS CAUSING TREMOR H is updated medication list for this problem includes: Aspirin Adult Low Dose 81 Mg Oral Tablet Delayed Release (Aspirin) ..... One tab by mouth daily Lisinopril 10 Mg Oral Tablet (Lisinopril) ..... One tab. daily Orders: G lobal No Charge (CPT-22973) Chelsie Enriquez MD Electrophysiology: O rders: David KG (CPT-19703) His updated medication list for this problem includes: Aspirin Adult Low Dose 81 Mg Oral Tablet Delayed Release (Aspirin) ..... One tab by mouth daily Chelsie Enriquez MD Electrophysiology: H is updated medication list for this problem includes: Aspirin Adult Low Dose 81 Mg Oral Tablet Delayed Release (Aspirin) ..... One tab by mouth daily Lisinopril 10 Mg Oral Tablet (Lisinopril) ..... One tab. daily Orders: G lobal No Charge (CPT-43054) Chelsie Enriquez MD Electrophysiology ho spital follow up: s /p DC PPM. His updated medication list for this problem includes: Aspirin Adult Low Dose 81 Mg Oral Tablet Delayed Release (Aspirin) ..... One tab by mouth daily Lisinopril 10 Mg Oral Tablet (Lisinopril) ..... One tab. daily Sudhakar Narayan Electrophysiology ho spital follow up: I mplanted 08/24/18. N ormal function. I ncision well healed. S titch removed today. Sudhakar Narayan Electrophysiology Ho spital Follow up : Aram whiteside found to be in V-paced rhythm with underlying AFib on EKG today. s /p DC PPM 08/24/18. Start Magnesium 400mg BID. His updated medication list for this problem includes: Aspirin Adult Low Dose 81 Mg Oral Tablet Delayed Release (Aspirin) ..... One tab by mouth daily Sudhakar Narayan Electrophysiology Ho spital Follow up : s /p DC PPM. His updated medication list for this problem includes: Aspirin Adult Low Dose 81 Mg Oral Tablet Delayed Release (Aspirin) ..... One tab by mouth daily Lisinopril 10 Mg Oral Tablet (Lisinopril) ..... One tab. daily Sudhakar Narayan Electrophysiology Ho spital Follow up : I mplanted 08/24/18 for severe bradycardia HR <30bpm, high degree AVB, and syncope. N ormal function. I ncision well healing. P miesha had fever up to 102.8F on 08/26/18 with URI Sx. Start Clindamycin 150mg TID for 14 days. S tart Levofloxacin 500mg once daily for 14 days. S tart Magnesium 400mg BID. Sudhakar Narayan Date Name Sleep Study Home Other Test CXR- PA/Lat PROTHROMBIN TIME WIT H INR PARTIAL THROMBOPLAST IN TIME, ACTIVATED MAGNESIUM CBC (INCLUDES DIFF/P LT) COMPREHENSIVE METABO LIC PANEL, W/EGFR Complete Echo MAGNESIUM PROTHROMBIN TIME WIT H INR Partial Thromboplast in Time, Activated CBC (INCLUDES DIFF/P LT) COMPREHENSIVE METABO LIC PANEL, W/EGFR URINALYSIS, COMPLETE W/REFLEX TO CULTURE Partial Thromboplast in Time, Activated PROTHROMBIN TIME WIT H INR COMPREHENSIVE METABO LIC PANEL, W/EGFR CBC (INCLUDES DIFF/P LT) COVID19 nasal swab ( LC) PARTIAL THROMBOPLAST IN TIME, ACTIVATED URINALYSIS, COMPLETE W/REFLEX TO CULTURE COMPREHENSIVE METABO LIC PANEL W/EGFR PROTHROMBIN TIME WIT H INR CBC (INCLUDES DIFF/P LT) Pacemaker Bi-V - CNE PROTHROMBIN TIME WIT H INR CBC (INCLUDES DIFF/P LT) LIPID PANEL BASIC METABOLIC PANE L W/EGFR Carotid Duplex Bilat eral Stress Regadenoson Complete Echo DLCO - 85417 FRC - 48883 FVC - 29733 DLCO - 47128 FRC - 57377 FVC - 19784 CULTURE, URINE, ROUT INE CBC (INCLUDES DIFF/P LT) BASIC METABOLIC PANE L W/EGFR MAGNESIUM BASIC METABOLIC PANE L W/EGFR PROTHROMBIN TIME WIT H INR DLCO - 97796 FRC - 79441 FVC - 71986 LAURA/CV - GC Complete Echo HISTORY OF PROCEDURES Procedure Date Procedure Name Provider Procedure Notes S tatus EKG Chelsie amezcua MD completed EKG Chelsie amezcua MD completed EKG Chelsie amezcua MD completed EKG Chelsie amezcua MD completed EKG Chelsie amezcua MD completed SARS-CoV-2 (COVID-19) POC Chelsie Enriquez MD completed EKG Chelsie amezcua MD completed EKG Chelsie amezcua MD completed FVC / MVV - 03051 Chelsie taylor MD completed BLOOD COUNT HEMOGLOBIN Chelsie Enriquez MD completed FRC - 06816 Chelsie amezcua MD completed SpO2 w/o 6min walk/titration Chelsie Enriquez MD completed DLCO - 32943 Chelsie amezcua MD completed EKG Chelsie amezcua MD completed ICM Interrogation, Remote (Prof) Chelsie Enriquez MD INTERROGATION EVAL REMOTE </30 D CV MNTR SYS completed ICM Interrogation, Remote (Tech) Chelsie Enriquez MD INTERROGATION EVAL REMOTE </30 D TECH REVIEW completed Regadenoson, 4 units Chelsie sanon MD completed Cardiolite, 2 units Chelsie perez MD completed SPECT Images Chelsie amezcua MD completed Stress EKG Chelsie amezcua MD completed EKG Chelsie amezcua MD completed ICM Interrogation, Remote (Prof) Chelsie Enriquez MD INTERROGATION EVAL REMOTE </30 D CV MNTR SYS completed Pacemaker Interrogation, Remote (Tech) Chelsie Enriquez MD INTERROGATION REMOTE </90 D CODE OFFICIAL REVIEW completed Pacemaker Interrogation, Remote (Prof) Chelsie Enriquez MD INTERROGATION EVAL REMOTE </90 D 1/2/ELECTRICIAN LEAD P completed Schedule Followup Chelsie taylor MD In 6 weeks. completed EKG Chelsie amezcua MD completed FVC / MVV - 21449 Chelsie taylor MD completed FR - 09445 Chelsie amezcua MD completed SpO2 w/o 6min walk/titration Chelsie Enriquez MD completed DLCO - 87515 Chelsie amezcua MD completed ICM Interrogation, Remote (Prof) Chelsie Enriquez MD INTERROGATION EVAL REMOTE </30 D CV MNTR SYS completed ICM Interrogation, Remote (Tech) Chelsie Enriquez MD INTERROGATION EVAL REMOTE </30 D TECH REVIEW completed ICM Interrogation, Remote (Prof) Chelsie Enriquez MD INTERROGATION EVAL REMOTE </30 D CV MNTR SYS completed ICM Interrogation, Remote (Tech) Chelsie Enriquez MD INTERROGATION EVAL REMOTE </30 D TECH REVIEW completed Schedule Followup Chelsie taylor MD fu in 3 months ECHO in 3 months completed EKG Chelsie amezcua MD completed EKG Chelsie amezcua MD completed
--- OUTSIDE RECORDS SUMMARY | 2024-06-14 21:29 | XMS_ITS | Clinical Summary ---
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 Diabetes mellitus without complication ([facility]) 03/02/2023 Diabetic foot ulcer ([facility]) 03/02/2023 High cholesterol 03/02/2023 Obesity (BMI 30.0-34.9) 03/02/2023 Tobacco dependence 03/02/2023 Lipoma of torso 03/02/2023 Dermoid cyst of skin of back 03/02/2023 Snoring 06/08/2021 Cardiomyopathy 10/23/2020 Overview (10/23/2020): Added automatically from request for surgery [id number] Congestive heart failure ([facility]) 10/12/2020 Arteriosclerosis of coronary artery 02/04/2019 Carotid bruit 02/04/2019 Shortness of breath 12/17/2018 Tremor 09/06/2018 Atrial fibrillation ([facility]) 2018 Bradycardia 2018 Dizziness 2018 Presence of cardiac pacemaker 08/24/2018 Surgical History Surgery Date Site/Laterality Comments CARPAL TUNNEL RELEASE ANKLE SURGERY leg/ankle ELBOW SURGERY CARDIAC STENT PLACEMENT CARDIAC PACEMAKER PLACEMENT VASECTOMY TOE AMPUTATION Right Medical History Medical History Date Comments Arrhythmia A Flutter, a fib CAD (coronary artery disease) Wound, open, foot 05/2020 ball of right foot Type 2 diabetes mellitus (HCC) Hypertension Cellulitis right lower leg Diabetic neuropathy (HCC) Kidney stone Parkinson's disease (HCC) BPH (benign prostatic hyperplasia) Parkinson disease (HCC) Difficulty breathing Parkinson disease (HCC) Social History Tobacco Use Types Packs/Day Years [...] on file 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 Gender Identity Not on file Sexual Orientation Not on file Obstetrics History Last Filed Vital Signs Vital Sign Reading Time Taken Comments Blood Pressure 157/98 05/19/2023 11:59 AM SWITCH CREW SUPERVISOR Pulse 80 05/19/2023 11:59 AM SWITCH CREW SUPERVISOR Temperature 36.2 ??C (97.2 ??F) 05/19/2023 1 1:59 AM SWITCH CREW SUPERVISOR Respiratory Rate 18 05/19/2023 11:5 9 AM SWITCH CREW SUPERVISOR Oxygen Saturation 95% 05/19/2023 11: 59 AM SWITCH CREW SUPERVISOR Inhaled Oxygen Concentration - - Weight 142.5 kg (314 lb 2.5 oz) 05/19/2023 7:52 AM SWITCH CREW SUPERVISOR Height 185.4 cm (6' 1 ) 05/19/2023 7:52 AM SWITCH CREW SUPERVISOR Body Mass Index 41.45 05/19/2023 7:52 AM SWITCH CREW SUPERVISOR Plan of Treatment Health Maintenance Due Date Last Done Comments Albumin Creatinine Ratio, Urine 1958 Colon Cancer Screening-Colonoscopy 1958 Depression Screening 1958 Hemoglobin A1C 1958 Hepatitis C Screening 1958 Prostate Cancer Screening-PSA 1958 eGFR 1958 Dilated Eye Exam 1958 Foot Exam 1958 Pneumococcal vaccine 65+ (1 of 2 - PCV) 1964 DTaP/Tdap/Td Vaccine (1 - Tdap) 1969 Hepatitis B Screening 1976 Zoster Vaccine (1 of 2) 2008 Lipid Panel 06/30/2019 06/30/2018 Abdominal Aortic Aneurysm (A AA) Screen 08/28/2023 Well Visit 65+ 08/28/2023 Covid-19 Vaccine ( season) 2024 10/22/2021, 05/08/2021, 04/17/2021 Influenza Vaccine (#1) 2024 Fall Risk Assessment 04/22/2024 04/22/2023, 11/14/19 21 Medical Devices Implanted Type Area Financial Sales Associate Device Identifier Shelf Expiration Date Model / Serial / Lot [employer] [id number] Sentus Promri 87cm Quadripolar Otw Thread Distal End Bend Left - [id number] - [id number] Implanted:Qty: 1 on 11/13/2020 by Chelsie Enriquez MD at [facility] [employer] 09/05/2022 [id number] / [id number] / [employer] [id number] Edora 8 Quadripolar Pacemaker Cardiac Hf-T - [id number] - [id number] Implanted:Qty: 1 on 11/13/2020 by Chelsie Enriquez MD at [facility] Pacemaker [employer] [id number] 02/05/2021 [id number] / [id number] / Procedures Procedure Name Priority Date/Time Associated [...] BLOOD ORDERABLES Edit ed Result - Final EXTERNAL LAB from Last 3 Months or Most Recently Relevant to Health Maintenance Insurance MEDICARE SOLUTIONS [facility] MEDICARE SOLUTIONS Advance Directives For more information, please contact: [phone] Documents on File Type Date Recorded Patient Picker / Packer Expl anation Power of Recorder Of Deeds 05/19/2023 7:37 AM Care Teams Fusing Machine Operator Relationship Specialty Start Date End Date Treasure Johns NP [address] [address] PCP - General Family Medicine 03/02/23 Chelsie Enriquez MD [address] [place] [address] Consulting Physician Cardiology 11/13/20
--- OUTSIDE RECORDS SUMMARY | 2024-06-14 21:29 | XMS_ITS | Encounter Summary ---
Author Organization [facility] Address [address] [place] [address] Phone Care Team Providers Care Speech/Language Therapist Name Role Phone Chelsie Enriquez MD Unavailable [phone] Treasure Johns NP Primary Care Provider [phone] Reason for Visit * Reason Comments Post-op * Consultation (Routine) - Closed Specialty Diagnoses / Procedures Referred By Luly landrum Referred To Contact Plastic Surgery Diagnoses Dermoid cyst of skin of back Oniel Higgins MD [address] [place] [address] Phone: tel: fax: Marleni Desai MD [address] [facility] [phone] [place] [address] Phone: tel: fax: Referral ID Status Reason Start Date Expiration Date V isits Requested Visits Authorized [id number] Closed Specialty Services Required 12/19/2022 01/18/2024 12 12 Encounter Details Date Type Department Care Team (Late st Contact Info) Description 06/04/2023 11:00 AM DRY ICE MACHINE OPERATOR Office Visit [facility] [address] [facility] [address] [place] [address] Praveena Becerra NP [address] [place] [address] [address] [place] [address] Dermoid cyst of skin of back (Primary Dx); Lipoma of torso Social History Tobacco Use Types Packs/Day Years [...] on file 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 Plastic & Reconstructive Surgery Progress Note Date of Surgery: 05/19/23 Surgery: Excision of cyst to right back complex closure Excision of cyst to left back with complex closure S: No acute issues since surgery He denies pain, fever, chills or drainage from surgical site. O: There were no vitals taken for this visit. Gen: NAD, A&O x3 Surgical incision remains intact, clean, dry, without erythema or exudate. I do not appreciate hematoma/seroma. There is no evidence of residual lesion. Surgical incision remained well approximated after suture tails were removed. He is positive sensation surrounding surgical incisions. REVIEW OF LABORATORY AND RADIOGRAPHIC STUDIES: A. Soft tissue, left back, excision: - Lipoma, compatible with. B. Skin and soft tissue, right back, excisional biopsy: - Epidermal inclusion cyst. A/P: 62 y.o. male is now 2 weeks status post excision of lipoma of his left upper back and cyst to his right lower back. Overall the patient is healing well. I reviewed the pathology with the patient and they are pleasedto hear of the both areas benign as expected. The incision is healing well. There is no evidence ofinfection. Suture tails were trimmed today. I discussed the stages of wound healing and explained the scar will take 6 months to 1 year to fully mature. I recommended to start using Vaseline or Aquaphor, performing scar massage, and applying sun screen if outside. The patient verbalized understanding and agreement with this plan. All questions were answered and he was encouraged to contact the office with further questions or concerns prior to the next appointment. Follow up: 6 week post op Restriction: Cautiously return to activities the next week in 3 weeks postop he may return to activities as tolerated Post Op Praveena Becerra NP 05/28/23 4:30 PM This document was transcribed using voice recognition software without a human metal buggy operator. Itmay contain typographical, grammatical, and/or syntax errors. ICE MACHINE OPERATOR documented in this encounter Plan of Treatment Not on file documented as of this encounter Visit Diagnoses Diagnosis Dermoid cyst of skin of back- Primary Lipoma of torso documented in this encounter Historical Medications * This list may reflect changes made after this encounter. Medication Sig Dispense Quantity Refills Last Filled Start D ate End Date dilTIAZem (CARDIZEM) 90 mg tablet 05/29/2023 added in this encounter Care Teams Speech/Language Therapist Relationship Specialty Start Date End Date Treasure Johns NP [address] [address] PCP - General Family Medicine 03/02/23 Chelsie Enriquez MD [address] [place] [address] Consulting Physician Cardiology 11/13/20 documented as of this encounter
--- OUTSIDE RECORDS SUMMARY | 2024-06-14 21:29 | XMS_ITS | Encounter Summary ---
Author Organization [facility] Address [address] [place] [address] Care Team Providers Care Dry Transfer Man Name Role Phone Chelsie Enriquez MD Unavailable [phone] Treasure Johns NP Primary Care Provider [phone] Reason for Visit * Auth/Cert (Routine) Specialty Diagnoses / Procedures Referred By Contac t Referred To Contact Diagnoses Lipoma of torso Cyst of skin Lipoma of torso [D17.1] Cyst of skin [L72.9] Procedures UT EXCISION TUMOR SOFT TISSUE BACK/FLANK SUBQ <3CM UT EXC B9 LESION MRGN XCP SK TG T/A/L 0.5 CM/< UT LAYR CLOS WND REST BODY <2.5 CM UT REPAIR INTERMEDIATE F/E/E/N/L&/MUC 2.5 CM/< EXCISION OF CYST RIGHT BACK WITH INTERMIDATE REPAIR, EXCISION OF LIPOMA ON LEFT BACK WITH COMPLEX REPAIR (MAC WITH LOCAL, 1% LIDO WITH EPI) Referral ID Status Reason Start Date Expiration Date Visits Re quested Visits Authorized [id number] 1 1 Encounter Details Date Type Department Care Team (Late st Contact Info) Description 05/19/2023 7:37 AM ACCOUNT AUDITOR - 05/19/2023 12:22 PM ACCOUNT AUDITOR Hospital Encounter [facility] Operating Room [address] [place] [address] Marleni Desai MD [address] [id number] [place] [address] Lipoma of torso; Cyst of skin Discharge Disposition: Discharge to home or self [...] on file Legal Sex Male 8:13 PM ACCOUNT AUDITOR Gender Identity Not on file Sexual Orientation Not on file documented as of this encounter Last Filed Vital Signs Vital Sign Reading Time Taken Comments Blood Pressure 157/98 05/19/2023 11:59 AM ACCOUNT AUDITOR Pulse 80 05/19/2023 11:59 AM ACCOUNT AUDITOR Temperature 36.2 ??C (97.2 ??F) 05/19/2023 1 1:59 AM ACCOUNT AUDITOR Respiratory Rate 18 05/19/2023 11:5 9 AM ACCOUNT AUDITOR Oxygen Saturation 95% 05/19/2023 11: 59 AM ACCOUNT AUDITOR Inhaled Oxygen Concentration - - Weight 142.5 kg (314 lb 2.5 oz) 05/19/2023 7:52 AM ACCOUNT AUDITOR Height 185.4 cm (6' 1 ) 05/19/2023 7:52 AM ACCOUNT AUDITOR Body Mass Index 41.45 05/19/2023 7:52 AM ACCOUNT AUDITOR documented in this encounter Discharge Instructions * Attachments The following attachments cannot be sent through Care Everywhere. * General Anesthesia (Discharge Care) (Khmer) * Cephalexin (By mouth) (Khmer) * Hydrocodone/Acetaminophen (By mouth) (Khmer) * Ondansetron (By mouth, Into the mouth) (Khmer) documented in this encounter Medications at Time of Discharge allopurinoL (ZYLOPRIM) 100 mg tablet Take 1 tablet (100 mg total) by mouth daily 02/27/2023 aspirin 81 mg enteric coated tablet Take 1 tablet (81 mg total) by mouth daily atorvastatin (LIPITOR) 20 mg tablet Take 1 tablet (20 mg total) by mouth daily cetirizine (ZyrTEC) 10 mg tablet Take 1 tablet (10 mg total) by mouth daily Coreg 25 mg tablet Take 1 tablet (25 mg total) by mouth 2 (two) times a day with meals 06/08/1969 Flovent HFA 44 mcg/actuation inhaler 02/27/2023 folic acid (FOLVITE) 1 mg tablet Take 1 tablet (1 mg total) by mouth daily furosemide (LASIX) 40 mg tablet Take 1 tablet (40 mg total) by mouth 2 (two) times a day HYDROcodone-acetamin ophen (NORCO) 5-325 mg per tabletIndications:Pa in Take 1 tablet by mouth every 6 (six) hours as needed for pain 20 tablet 05/19/2023 ipratropium-albutero L (DUO-NEB) 0.5-2.5 mg/3 mL nebulizer solution 02/27/2023 magnesium oxide 400 mg magnesium capsule Take 400 mg by mouth 2 (two) times a day metFORMIN (GLUCOPHAGE) 1,000 mg tablet Take 1 tablet (1,000 mg total) by mouth daily with breakfast 11/16/2020 montelukast (SINGULAIR) 10 mg tablet Take 1 tablet (10 mg total) by mouth nightly multivitamin capsule Take 1 capsule by mouth daily ondansetron ODT (ZOFRAN-ODT) 8 mg disintegrating tabletIndications:Pr evention of Post-Operative Nausea and Vomiting Take 1 tablet (8 mg total) by mouth every 8 (eight) hours as needed for nausea or vomiting 12 tablet 1 05/19/2023 potassium chloride ER (potassium chloride ER) 20 mEq CR tablet Take 1 tablet (20 mEq total) by mouth daily tamsulosin (FLOMAX) 0.4 mg extended release capsule TAKE ONE CAPSULE BY MOUTH DAILY AT 9PM AT BEDTIME 03/30/2023 valsartan (DIOVAN) 320 mg tablet valsartan 320 mg tablet 06/08/1969 Xarelto 20 mg tablet Take 1 tablet (20 mg total) by mouth daily with breakfast 02/27/2023 cephalexin (KEFLEX) 500 mg capsuleIndications:S kin/Soft Tissue Infection Take 1 capsule (500 mg total) by mouth 4 (four) times a day for 14 days 56 capsule 05/19/2023 3 documented as of this encounter Ordered Prescriptions Prescription Sig Dispense Quantity Refills Last Filled Start Date End Date ondansetron ODT (ZOFRAN-ODT) 8 mg disintegrating tabletIndications:Pr evention of Post-Operative Nausea and Vomiting Take 1 tablet (8 mg total) by mouth every 8 (eight) hours as needed for nausea or vomiting 12 tablet 1 05/19/2023 HYDROcodone-acetamin ophen (NORCO) 5-325 mg per tabletIndications:Pa in Take 1 tablet by mouth every 6 (six) hours as needed for pain 20 tablet 05/19/2023 cephalexin (KEFLEX) 500 mg capsuleIndications:S kin/Soft Tissue Infection Take 1 capsule (500 mg total) by mouth 4 (four) times a day for 14 days 56 capsule 05/19/2023 3 documented in this encounter Discharge Disposition Disposition Code Departure Means Destination Comment s Discharge to home or self care documented in this encounter H&P Notes * Marleni Desai MD - 05/19/2023 9:40 AM CST I have reviewed the H&P, examined the patient, and endorse the findings as written. Plan of Care : Based on the above findings, I consider Edil Fry to be an acceptable risk for: Procedure(s): EXCISION OF CYST RIGHT BACK WITH INTERMIDATE REPAIR, EXCISION OF LIPOMA ON LEFT BACK WITH COMPLEX REPAIR (MAC WITH LOCAL, 1% LIDO WITH EPI) Site marked. Consent signed and in chart. To OR for Exc cyst R back, exc lipoma L back. Marleni Desai MD 05/19/23 9:40 AM UNT AUDITOR Source Note - Cipriano Jeffery MD - 05/18/2023 7:54 AM ACCOUNT AUDITOR Images from the original note were not included. Anesthesia Evaluation Edil Fry is a 62 y.o. male Procedure(s): EXCISION [...] (HCC) 03/02/2023 Diabetes mellitus without complication (CMS/HCC) ([facility]) 03/02/2023 Diabetic foot ulcer (CMS/HCC) (HCC) 03/02/2023 High cholesterol 03/02/2023 Obesity (BMI 30.0-34.9) 03/02/2023 Tobacco dependence 03/02/2023 Lipoma of torso 03/02/2023 Dermoid cyst of skin of back 03/02/2023 Snoring 06/08/2021 Cardiomyopathy ([facility]) 10/23/2020 Congestive heart failure (CMS/HCC) ([facility]) 10/12/2020 Arteriosclerosis of coronary artery 02/04/2019 Carotid bruit 02/04/2019 Shortness of breath 12/17/2018 Tremor 09/06/2018 Atrial fibrillation (CMS/HCC) (HCC) 2018 Bradycardia 2018 Dizziness 2018 Presence of cardiac pacemaker 08/24/2018 Past Medical History: Diagnosis Date Arrhythmia A Flutter, a fib BPH (benign prostatic hyperplasia) CAD (coronary artery disease) Cellulitis right lower leg Diabetic neuropathy (HCC) Difficulty breathing Hypertension Kidney stone Parkinson disease [...] (ZYLOPRIM) 100 mg tablet -- 02/27/23 -- Grace Mcclure MD aspirin 81 mg enteric coated tablet -- -- -- Grace Mcclure MD atorvastatin (LIPITOR) 20 mg tablet -- -- -- Grace Mcclure MD cetirizine (ZyrTEC) 10 mg tablet -- -- -- Grace Mcclure MD Coreg 25 mg tablet -- 06/08/69 -- Grace Mcclure MD Flovent HFA 44 mcg/actuation inhaler -- 02/27/23 -- Grace Mcclure MD folic acid (FOLVITE) 1 mg tablet -- -- -- Grace Mcclure MD furosemide (LASIX) 40 mg tablet -- [...] (SINGULAIR) 10 mg tablet -- -- -- Grace Mcclure MD multivitamin capsule -- -- -- Grace [...] Informed Consent: Discussed plan with attending and DOWEL MACHINE OPERATOR. Anesthesia plan and risks discussed with patient. Consent and Attending signature: I and/or my designee have discussed the anesthesia plan, benefits, possible alternatives, parental presence at time of induction (if indicated), and clinically relevant risks that may include dental injury, unintentional awareness, and/or other complications. The patient and/or parent/legal guardian understand, and agree to proceed. All questions answered. UNT AUDITOR UNT AUDITOR documented in this encounter Miscellaneous Notes * Op Note - Marleni Desai MD - 05/19/2023 10:18 AM CST Plastic, Reconstructive, and Hand Surgery Operative Note Patient: Edil Fry Date of : 1960 Date of Surgery: 05/19/2023 Preoperative Diagnosis: Inclusion cyst right back Lipoma left back Postoperative Diagnosis: Same Procedure Performed: Excision cyst right back, 2.5 cm Complex repair back, 3 cm Excision subfascial lipoma left back, 8 cm Complex repair left back, 6.7 cm Attending Surgeon: Marleni Desai MD Surgical Team: Surgeon(s) and Role: * Marleni Desai MD - Primary Anesthesia: Monitor Anesthesia Care and local Willis Findings: lipoma and cyst excised without issue Estimated Blood Loss: 10 mL Drains: none Implants: Nothing was implanted during the procedure Complications: none Specimens: cyst right back, lipoma left back Indications for Procedure: Edil Fry is a 62 y.o. male who presented to my clinic 2 and half months ago with masses on his back. These were present for over a year. There is slow growing and would spontaneously drain, mostly regarding the mass on the right side. He was evaluated by film numberer who diagnosed him with a lipoma and an inclusion cyst. He was referred to my clinic for further evaluation. I recommended excision. Risks and rationale for this procedure were explained to him at length and he agreed to proceed. Procedure in Detail: The patient was seen in the preoperative holding area and marked in the upright position. After informed consent was obtained, the patient was brought back to the operating room and placed into the supine position. SCDs were placed to the bilateral lower extremities and appropriate padding of pressure points were ensured. After adequate MAC anesthesia was obtained, patient was then placed in the prone position, prepped and draped in usual sterile fashion. A time out procedure was then performed, where the patient was properly identified, and there was verification of the procedure to be performed as well as administration of appropriate pre-operative antibiotics. Attention was turned to the back. A firm soft tissue mass was noted within the left upper back. This was consistent with lipoma. This measured approximately 8 cm in diameter. Linear incision was marked out overlying this mass. This area was then infiltrated with 1% lidocaine with epinephrine solution. Fifteen blade scalpel then used to incise over the previous marking. Dissection was carried down through subcutaneous tissue using cautery. Celia's fascia was divided and the mass in question was identified. This was consistent with lipoma. This was carefully dissected free from the surrounding soft tissue. This traversed down to the deep muscles of his back was carefully dissected free in asubfascial but supra muscular plane. This was able to be completely dissected without issue and then passed off the field for permanent specimen. The wound was inspected. Meticulous hemostasis was achieved using Bovie electrocautery. The wound was then irrigated copiously until the effluent was clear. Hemostasis was excellent. The skin edges were then reapproximated in multiple layers using 2-0 PDS suture to reapproximate Celia's fascia, followed by 3-0 Monocryl suture in deep dermal fashion, and 3-0 Monocryl suture in running subcuticular fashion. Attention was then turned to the right back. A cystic mass with a notable punctum was identified. This measured approximately 2.5 cm in diameter. A lenticular excision pattern was marked out and thenthis areas infiltrated 1% lidocaine with epinephrine solution. Fifteen blade scalpel used to inciseover the previous marking. Dissection carried to the skin. The cyst wall was encountered and the cyst was then carefully dissected free from all surrounding soft tissue. This did traverse deep into the subcutaneous tissue in the entirety of the cyst wall was able to be dissected from the subcutaneous plane. The cyst was then removed from the field and passed off for permanent sectioning. There was no violation of the cyst wall. The wound was inspected. Meticulous hemostasis was achieved using Bovie electrocautery. The wound was then irrigated copiously until the effluent was clear. Hemostasiswas excellent. The skin edges were then reapproximated in multiple layers using 2-0 PDS suture to re approximate the deep tissue, followed by 3-0 Monocryl suture in deep dermal fashion, and 3-0 Monocryl suture in running subcuticular fashion. Needle, instrument, and sponge count was correct at this time. Sterile dressings were applied, consisting of paper tape an island dressing. Patient tolerated the procedure in its entirety without complication and successfully aroused from anesthesia. The patient was transferred to the recovery roomin stable condition and is to be discharged home. I reviewed the intra-op findings with his family. All questions were answered. Post-operative Plan: Stable, to PACU. Discharge to home when criteria met. Follow up: 2 weeks Restrictions: Light activity Attestation of Presence: I was present for the entirety of the procedure. Marleni Desai MD 05/19/23 11:02 AM This document was transcribed using voice recognition software without a human flask fitter. Itmay contain typographical, grammatical, and/or syntax errors. UNT AUDITOR * Brief Op Note - Marleni Desai MD - 05/19/2023 10:18 AM ACCOUNT AUDITOR Operative Progress Note Surgical Team: Surgeon(s) and Role: * Marleni Desai MD - Primary Anesthesiologist: Cipriano Jeffery MD DOWEL MACHINE OPERATOR: Sofia Dominguez CRNA Malariologist: Estelle Casanova RN Scrub: Heather Harrell LPN QUARANTINE INSPECTOR: Eda Pichardo RN DATE OF SURGERY : 05/19/2023 Preoperative Diagnosis: Pre-op Diagnosis * Lipoma of torso [D17.1] * Cyst of skin [L72.9] Postoperative Diagnosis: Post-op Diagnosis * Lipoma of torso [D17.1] * Cyst of skin [L72.9] Procedure(s): Procedure(s) (LRB): EXCISION OF CYST RIGHT BACK WITH COMPLEX REPAIR, EXCISION OF LIPOMA ON LEFT BACK WITH COMPLEX REPAIR (Bilateral) Operative Findings: Lipoma excised from left back. Cyst removed from right back. Estimated Blood Loss: 10 mL Intraoperative Fluids: See anesthesia record Specimens: ID Type Source Tests Collected by Time A : left back cyst Tissue Cyst SURGICAL PATHOLOGY Marleni Desai MD 05/19/2023 1031 B : right back cyst Tissue Cyst SURGICAL PATHOLOGY Marleni Desai MD 05/19/2023 1031 Implants: Nothing was implanted during the procedure Blood/Blood Products Transfused: 0 mls Complications: None Condition on Discharge from the operating room was stable Marleni Desai MD Date: 05/19/2023 Time: 11:01 AM No Resident involved on case UNT AUDITOR * Perioperative Nursing Note - Jeanette Cerda RN - 05/12/2023 4:33 PM CST Pre operative instructions reviewed with patient. He verbalized understanding. UNT AUDITOR * Pre-Procedure Instructions - Jeanette Cerda RN - 05/12/2023 4:27 PM CST We are pleased that you and your doctor have chosen [facility] for your surgery. We hope that the following information will help make your visit a pleasant one. Surgery Date: 05/19/2023 Before your surgery: Notify your doctor of ANY change in your health such as a cold, sore throat, fever, any infection or a change in the problem for which you are having your surgery. Follow any instructions given to you by your doctor or surgeon. Check with your doctor if you need to STOP taking: Aspirin (ordered by your doctor) Plavix Coumadin One week before surgery STOP taking: All herbal supplements Aspirin (not ordered by your doctor) Aleve, Advil, Motrin, Ibuprofen, or other similar medications (Tylenol is okay). 24 hours before your surgery: No smoking or alcoholic drinks. Stop taking your: Metformin/Glucophage. Night before your surgery: Do not eat or drink anything after midnight. . Follow surgeon's instructions for anti-bacterial shower night before and morning of surgery. Day of surgery: Do not swallow any water when you brush your teeth. Do not take your AM insulin dose or any diabetic medicines ONLY take these pills with a tiny sip of water. Pre-Surgery Instructions: Medication Instructions allopurinoL (ZYLOPRIM) 100 mg tablet Take morning of surgery atorvastatin (LIPITOR) 20 mg tablet Take morning of surgery cetirizine (ZyrTEC) 10 mg tablet Take morning of surgery Coreg 25 mg tablet Take morning of surgery Flovent HFA 44 mcg/actuation inhaler Take morning of surgery folic acid (FOLVITE) 1 mg tablet Stop taking 1 days prior to surgery furosemide (LASIX) 40 mg tablet Stop taking 1 days prior to surgery ipratropium-albuteroL (DUO-NEB) 0.5-2.5 mg/3 mL nebulizer solution Take morning of surgery magnesium oxide 400 mg magnesium capsule Stop taking 1 days prior to surgery metFORMIN (GLUCOPHAGE) 1,000 mg tablet Stop taking 1 days prior to surgery montelukast (SINGULAIR) 10 mg tablet Stop taking 1 days prior to surgery potassium chloride ER (potassium chloride ER) 20 mEq CR tablet Stop taking 1 days prior to surgery tamsulosin (FLOMAX) 0.4 mg extended release capsule Take morning of surgery valsartan (DIOVAN) 320 mg tablet Take morning of surgery Xarelto 20 mg tablet Stop taking 5 days prior to surgery multivitamin capsule Stop taking 1 days prior to surgery Use no make-up, nail macedonian, lotions, oils or powders on your skin. Wear comfortable clothes that will not be tight in the area of your surgery. Leave all valuables and jewelry (including all body piercing jewelry) at home. If you use a CPAP machine, please bring it with you to wear after your surgery. Please bring your a photo ID and insurance cards with you. Check in at the Registration Desk. If you are 17 years old or younger, a parent or guardian must come with you. After your Outpatient Surgery: You must have a responsible adult to drive you home, you will not be allowed to drive or take a cabhome. We recommend you have someone stay with you for 24 hours after your surgery. Questions or concerns: If you have any questions or concerns regarding your procedure, contact your surgeon as soon as possible. If you have questions regarding your Pre-Admission Testing, please call us. We can be reached at the number posted at the top of the page. UNT AUDITOR documented in this encounter Plan of Treatment Not on file documented as of this encounter Procedures Procedure Name Priority Date/Time Associated Diagnosis Comments SURGICAL PATHOLOGY Routine 05/19/2023 11:21 AM ACCOUNT AUDITOR Lipoma of torso Cyst of skin POCT GLUCOSE DEVICE Routine 05/19/2023 10:55 AM ACCOUNT AUDITOR EXCISION CYST/LIPOMA/LESIO N 05/19/2023 9:50 AM ACCOUNT AUDITOR Lipoma of torso Cyst of skin Special Needs MAC WITH LOCAL, 1% LIDO WITH EPI,05/04/2023 - kkm ECG 12-LEAD STAT 05/19/2023 8:33 AM ACCOUNT AUDITOR POTASSIUM, WHOLE BLOOD Routine 05/19/2023 8:14 AM ACCOUNT AUDITOR POCT GLUCOSE DEVICE Routine 05/19/2023 8:07 AM ACCOUNT AUDITOR documented in this encounter Results * Surgical pathology (05/19/2023 11:21 AM ACCOUNT AUDITOR) Tissue (Cyst) 05/19/2023 10: 31 AM ACCOUNT AUDITOR Tissue (Cyst) 05/19/2023 10: 31 AM ACCOUNT AUDITOR Narrative PATHOLOGY [facility] - 05/21/2023 8:45 AM ACCOUNT AUDITOR EPIC results best viewed via link to PDF [facility] Department of Pathology [address] [place] [id number] Note to Patients: This report may contain a detailed description of human tissue sent by a health care provider to the laboratory for pathologic evaluation. The content of this report is essential for diagnosis and may provide important critical findings. This information may be unfamiliar to patients to review without a medical professional present. It is advised that the patient review this report in the presence of a health care provider who can answer questions and explain the details. Final Report Patient Name: ??EDIL FRY Address: ??[address] [place] [address], ??[place], [place] ??[address] Gender: ??M : ??1960 (Age: 62) Service: ??Surgery Location: ??[facility] Hospital #: ??[id number] Patient Type: ??[facility] Accession # ?[id number] Taken: ??05/19/2023 Received: ??05/19/2023 Accessioned: ??05/19/2023 Reported: ??05/21/2023 Physician(s):Marleni Beckett M.D. Diagnosis: A. ??Soft tissue, left back, excision: ? - Lipoma, compatible with. B. ??Skin and soft tissue, right back, excisional biopsy: ? - Epidermal inclusion cyst. Juan Biggs MD Report Electronically Reviewed and Signed Out By ??Juan Biggs MD ??05/21/2023 08:45:39 Specimen(s) Received: A: Left back cyst B: Right back cyst Microscopic Description: A. Microscopic examination shows lobules of mature adipose tissue. ??No overt cytologic atypia or increased mitotic activity are identified. ??Though the specimen is received labeled left back cyst, the operative note dated 05/19/23 is reviewed and the clinical impression of a lipoma is noted. ??The histologic findings are in keeping with this clinical impression from the operative note. B. Microscopic examination shows a cyst lined by epidermis-like epithelium including a granular cell layer. The cyst contains lamellated keratin. There is no evidence of malignancy. Clinical History: Lipoma of torso, cyst of skin. Excision of cyst right back excision of lipoma left back. ?? Gross Description: The specimen is submitted in two formalin containers labeled EDIL FRY . A. ??The first container is labeled left back cyst . It is a 5 x 4 x 2 cm encapsulated mass of homogeneous fat. ??Its external and cut surfaces are devoid of hemorrhage, necrosis or other atypical gross features. ??The specimen is sectioned and Represented in A. B. ??The second container is labeled right back cyst . ??Is an intact cyst with lr waxy contents measuring 2.8 cm. ??It has an attached ellipse of lr skin measuring 2 x 0.4 cm. ??Represented in B. German Coppola M.D., Ph.D./Xochilt Quintero. Myke. Melba Craaballo, P.A. REPORT IMAGES AND SCANNED DOCUMENTS, IF INCLUDED, ONLY VIEWABLE IN PDF VERSION OF REPORT The performance characteristics of some immunohistochemical stains, fluorescence in-situ hybridization tests and immunophenotyping by flow cytometry cited in this report (if any) were determined by the Surgical Pathology Department at [facility] as part of an ongoing software quality tester program and in compliance with federally mandated regulations drawn from the Clinical Laboratory Improvement Act of 1988 (CLIA '88). ??Some of these tests rely on the use of analyte specific reagents and are subject to specific labeling requirements by the US Food and Drug Administration. ??Such diagnostic tests may only be performed in a facility that is certified by the Department of Health and Human Services as a high complexity laboratory under CLIA '88. The FDA has determined that such clearance or approval is not necessary. ??This test is used for clinical purposes. ??It should not be regarded as investigational or for research. ??Nevertheless, federal rules concerning the medical use of analyte specific reagents require that the following disclaimer be attached to the report: This test was developed and its performance characteristics determined by the Surgical Pathology Department [facility]. ??It has not been cleared or approved by the U. S. Food and Drug Administration. Note for decalcified specimens: This assay has not been validated on decalcified tissues. Results should be interpreted with caution given the possibility of false negativity on decalcified specimens Marleni Desai MD LAB PATHOLOGY ORDERA BLES Final Result Performing Organization Address City/[facility] Co de Phone Number PATHOLOGY [facility] ([place]) [address] [place] [address] * (ABNORMAL) POCT glucose (05/19/2023 10:55 AM ACCOUNT AUDITOR) Glucose, POC 195(H) 71 - 98 mg/dL [facility] Blood 05/19/2023 10:5 5 AM ACCOUNT AUDITOR 05/19/2023 10:55 AM ACCOUNT AUDITOR Marleni Desai MD LAB POCT ORDERABLES - DEVICE Final Result Performing Organization Address [facility] de Phone Number [facility] ([place] 1 [facility] [place] [address] * ECG 12 lead (05/19/2023 8:33 AM ACCOUNT AUDITOR) 05/19/2023 8:33 AM ACCOUNT AUDITOR Narrative [facility] - 05/19/2023 10:33 AM ACCOUNT AUDITOR Vent Rate: 80 bpm RR Interval: 750 msec UT Interval: 211 msec QRS Duration: 173 msec QT Interval: 460 msec QTC Interval: 495 msec P-R-T [place]: -37 - 139 - -25 degrees IMPRESSION: ELECTRONIC VENTRICULAR PACEMAKER ABNORMAL RHYTHM ECG Electronically Signed By: Fabian Meneses Marleni Desai MD ECG ORDERABLES Jessenia l Result Performing Organization Address [facility] Co de Phone Number [facility] * Potassium, whole blood (05/19/2023 8:14 AM ACCOUNT AUDITOR) Potassium, bld 4.8 3.3 - 4.9 mmol/L [facility] ([place]) Comment: Interpretive Data This method is not able to assess for hemolysis, which may falsely increase potassium concentrations. If further testing is needed to evaluate this result, consider in-laboratory plasma potassium. Current Interpretive Data was last revised on 2022. Blood 05/19/2023 8:14 AM ACCOUNT AUDITOR 05/19/2023 8:16 AM ACCOUNT AUDITOR Marleni Desai MD LAB BLOOD ORDERABLES Final Result Performing Organization Address City/[facility]/ZIP Co de Phone Number [facility] ([place] 1 [facility] true[x] [place] [address] * (ABNORMAL) POCT glucose (05/19/2023 8:07 AM ACCOUNT AUDITOR) Pathologist [facility] Glucose, POC 153(H) 71 - 98 mg/dL [facility] ([place]) Blood 05/19/2023 8:07 AM ACCOUNT AUDITOR 05/19/2023 8:07 AM ACCOUNT AUDITOR Marleni Desai MD LAB POCT ORDERABLES - DEVICE Final Result [facility] ([place] 1 [facility] [place] [address] documented in this encounter Visit Diagnoses Diagnosis Cyst of skin- Primary Sebaceous cyst Lipoma of torso documented in this encounter Admitting Diagnoses Diagnosis Cyst of skin Sebaceous cyst documented in this encounter Administered Medications Inactive Administered Medications - up to 3 most recent administrations Medication Order MAR Action Action Date Dose Rate Site acetaminophen (TYLENOL) tablet 1,000 mg 1,000 mg, oral, Once, On Thu05/19/23 at 0830, For 1 dose, Pre-Op, Indications: Pre-Emptive AnalgesiaIndications:Pre-Emptiv e Analgesia Given 05/19/2023 8:05 AM ACCOUNT AUDITOR 1,000 mg celecoxib (CeleBREX) capsule 200 mg 200 mg, oral, Once, On Thu05/19/23 at 0830, For 1 dose, Pre-Op, Hold if history of kidney disease or gastric ulcer., Indications: Pre-Emptive AnalgesiaIndications:Pre-Emptiv e Analgesia Given 05/19/2023 8:05 AM ACCOUNT AUDITOR 200 mg gabapentin (NEURONTIN) capsule 300 mg 300 mg, oral, Once, On Thu05/19/23 at 0830, For 1 dose, Pre-Op, Indications: Pre-Emptive AnalgesiaIndications:Pre-Emptiv e Analgesia Given 05/19/2023 8:05 AM ACCOUNT AUDITOR 300 mg sodium chloride 0.9% infusion 30 mL/hr, intravenous, Continuous, Starting on Thu05/19/23 at 0830, Pre-Op Restarted 05/19/2023 10:05 AM ACCOUNT AUDITOR New Bag 05/19/2023 8:06 AM ACCOUNT AUDITOR 30 mL/hr 30 mL/hr documented in this encounter Discontinued Medications Medication Sig Discontinue Reason Start Date End Da te dilTIAZem (CARDIZEM) 90 mg tablet TAKE ONE TABLET BY MOUTH TWICE DAILY @ 9AM-5PM Therapy completed 05/12/2023 documented as of this encounter Historical Medications * This list may reflect changes made after this encounter. aspirin 81 mg enteric coated tablet Take 1 tablet (81 mg total) by mouth daily tamsulosin (FLOMAX) 0.4 mg extended release capsule TAKE ONE CAPSULE BY MOUTH DAILY AT 9PM AT BEDTIME 03/30/2023 added in this encounter Active and Recently Administered Medications Times are shown in ACCOUNT AUDITOR. Scheduled Medication Order 05/17/2023 05/18/2023 05/19/2023 acetaminophen (TYLENOL) tablet 1,000 mg (COMPLETED) 1,000 mg, oral, Once, On Thu05/19/23 at 0830, For 1 dose, Pre-Op, Indications: Pre-Emptive Analgesia 0805 (Given - Provid er: Neli Grijalva RN) celecoxib (CeleBREX) capsule 200 mg (COMPLETED) 200 mg, oral, Once, On Thu05/19/23 at 0830, For 1 dose, Pre-Op, Hold if history of kidney disease or gastric ulcer., Indications: Pre-Emptive Analgesia 0805 (Given - Provid er: Neli Grijalva RN) gabapentin (NEURONTIN) capsule 300 mg (COMPLETED) 300 mg, oral, Once, On Thu05/19/23 at 0830, For 1 dose, Pre-Op, Indications: Pre-Emptive Analgesia 0805 (Given - Provid er: Neli Grijalva RN) Continuous Medication Order 05/17/2023 05/18/2023 05/19/2023 sodium chloride 0.9% infusion 30 mL/hr, intravenous, Continuous, Starting on Thu05/19/23 at 0830, Pre-Op 0806 (New Bag - Prov ider: Neli Grijalva RN)1004 (Paused - Provider: Sofia Dominguez CRNA - Comment: Switch to gravity)1005 (Restarted - Provider: Sofia Dominguez CRNA)1042 (Anesthesia Volume Adjustment - Provider: Sofia Dominguez CRNA)1622 (Due: Stopped) PRN Medication Order 05/17/2023 05/18/2023 05/19/2023 lidocaine-EPINEPHrine (XYLOCAINE with EPI) 1 %-1:200,000 preservative free injection (CANCELED) As needed, Starting on Thu05/19/23 at 1030, Intra-Op, Indications: Administration of Local Anesthesia 1030 (Given - Provid er: Marleni Desai MD) sodium chloride 0.9% irrigation (CANCELED) As needed, Starting on Thu05/19/23 at 1030, Intra-Op 1030 (Given - Provid er: Marleni Desai MD - Comment: field) documented in this encounter Orders Medications Ordered That Anthony ht Not Have Been Administered Count Last Ordered Date First Ordered Date Carrier Fluids for Secondary Infusion - 0.9% Sodium Chloride 1 05/19/2023 ceFAZolin (ANCEF) 2,000 mg/2 0 mL in sterile water (premix) 2,000 mg 1 05/19/2023 fentaNYL (SUBLIMAZE) preserv ative free injection 50 mcg 1 05/19/2023 lidocaine-EPINEPHrine (XYLOC B[place]RON with EPI) 1 %-1:200,000 preservative free injection 1 05/19/2023 naloxone (NARCAN) 0.4 mg/mL injection 0.04-0.4 mg 1 05/19/2023 sodium chloride 0.9% flush 0.5-20 mL 1 05/08 sodium chloride 0.9% irrigation 1 Diet Count Last Ordered Date First Orde red Date ADULT DISCHARGE DIET 1 05/19/2023 Nursing Count Last Ordered Date First Orde red Date DISCHARGE ACTIVITY 1 05/19/2023 DISCHARGE CALL PROVIDER 6 05/19/2023 DISCHARGE DRESSING 1 05/19/2023 Discharge Count Last Ordered Date First Orde red Date DISCHARGE PATIENT 1 05/19/2023 documented in this encounter Care Teams Dry Transfer Man Relationship Specialty Start Date End Date Treasure Johns NP [address] [address] PCP - General Family Medicine 03/02/23 Chelsie Enriquez MD [address] [address] Consulting Physician Cardiology 11/13/20 documented as of this encounter
--- OUTSIDE RECORDS SUMMARY | 2024-06-14 21:29 | XMS_ITS | Encounter Summary ---
Author Organization [facility] Healthcare Address [address] [place] [id number] Care Team Providers Care Security System Administrator Name Role Phone No, Physician Primary Care Provider [phone] Chelsie Enriquez MD Unavailable [phone] Encounter Details Date Type Department Care Team (Latest Contact Info) Description 11/13/2020 5:37 AM CDT - 11/13/2020 2:00 PM CDT Hospital Encounter [facility] Electrophysiology Lab [address] [place] [address] Chelsie Enriquez MD [address] [place] [address] Cardiomyopathy (CMS/HCC) Discharge Disposition: Discharge to home or self [...] on file 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 Gender Identity Not on file Sexual Orientation Not on file documented as of this encounter Last Filed Vital Signs Vital Sign Reading Time Taken Comments Blood Pressure 171/99 11/13/2020 12:48 PM CDT Pulse 80 11/13/2020 12:48 PM CDT Temperature 36.8 ??C (98.2 ??F) 11/13/2020 6:00 AM CD T Respiratory Rate 14 11/13/2020 12:48 PM CDT Oxygen Saturation 98% 11/13/2020 12:48 PM CDT Inhaled Oxygen Concentration - - Weight 117.3 kg (258 lb 8 oz) 11/13/2020 6:00 AM CDT Height 185.4 cm (6' 1 ) 11/13/2020 6:00 AM CDT Body Mass Index 34.1 11/13/2020 6:00 AM CDT documented in this encounter Discharge Diagnoses Diagnosis Cardiomyopathy, unspecified (HCC) - CARDIOMYOPATHY, UNSPECIFIED Hypertensive heart disease with heart failure (CMS/HCC) (HCC) - HYPERTENSIVE HEART DISEASE WITH HEART FAILURE Unspecified hypertensive heart disease with heart failure Heart failure, unspecified (CMS/HCC) (HCC) - HEART FAILURE, UNSPECIFIED Heart failure, unspecified Left bundle-branch block, unspecified - LEFT BUNDLE-BRANCH BLOCK, UNSPECIFIED Unspecified atrial fibrillation (HCC) - UNSPECIFIED ATRIAL FIBRILLATION Parkinson's disease (HCC) - PARKINSON'S DISEASE Paralysis agitans Hyperlipidemia, unspecified - HYPERLIPIDEMIA, UNSPECIFIED Type 2 diabetes mellitus with diabetic neuropathy, unspecified (HCC) - TYPE 2 DIABETES MELLITUS WITH DIABETIC NEUROPATHY, UNSPECIFIED Obesity, unspecified - OBESITY, UNSPECIFIED Body mass index (BMI)30.0-30.9, adult - BODY MASS INDEX [BMI] 30.0-30.9, ADULT Personal history of nicotine dependence - PERSONAL HISTORY OF NICOTINE DEPENDENCE Presence of coronary angioplasty implant and graft - PRESENCE OF CORONARY ANGIOPLASTY IMPLANT AND GRAFT nursing home (current) use of aspirin - USP (CURRENT) USE OF ASPIRIN Personal history of urinary calculi - PERSONAL HISTORY OF URINARY CALCULI documented in this encounter Discharge Instructions * Discharge Instructions* Marie Jama RN - 11/13/2020 12:49 PM CDT * Attachments The following attachments cannot be sent through Care Everywhere. * General Anesthesia (Discharge Care) (Citizen [place]) * Implantable Cardioverter Defibrillator (Discharge Care) (Citizen [place]) documented in this encounter Medications at Time [...] daily 3 documented as of this encounter Ordered Prescriptions Prescription Sig Dispense Quantity Refills Last Filled Start Date End Date metFORMIN (GLUCOPHAGE) 1,000 mg tablet Take 1 tablet (1,000 mg total) by mouth daily with breakfast 11/16/2020 cephalexin (KEFLEX) 500 mg capsuleIndications :Prophylaxis, Surgical Take 1 capsule (500 mg total) by mouth 3 (three) times a day for 30 doses 30 capsule 11/13/2020 1 rivaroxaban (XARELTO) 15 mg tablet Take 1 tablet (15 mg total) by mouth daily 11/14/2020 3 documented in this encounter Discharge Disposition Disposition Code Departure Means Destination Discharge to home or self care documented in this encounter Progress Notes * Chelsie Enriquez MD - 11/13/2020 12:32 PM CDT Patient would like to go home today hold Xarelto until tomorrow. hold metformin for 2 days Percocet and cephalexin Rx were sent to the pharmacy already through [facility]. FU were scheduled * Chelsie Enriquez MD - 11/13/2020 10:57 AM CDT Patient underwent upgrade of dual-chamber pacemaker to Bi V pacemaker. Patient are procedure well no complications Patient will be admitted overnight as observation. Bedrest for now or so. Plan transferred to recovery then to telemetry bed when stable. If patient continues to do well will plan to discharge patient early tomorrow in a.m. after x-ray done in device is interrogated Plan Ancef IV 1 g q.8 hours x2 when patient is in hospital. Dilaudid 1 mg q.3 hours p.r.n. for moderate pain After discharge give cephalexin 500 mg 3 times a day for 10 days. Percocet 5/325 mg Q 6 hours p.r.n. moderate pain total 28 tablets documented in this encounter H&P Notes * Chelsie Enriquez MD - 11/13/2020 7:56 AM CDT The patient was seen examined by me Dr. Zoe finney in person in cardiac catheterization preop area. Pertinent information was reviewed. Patient here for upgrade of his dual-chamber pacemaker to Bi Vpacemaker. His diagnosis congestive heart failure Neuro heart Association class 3 symptoms LVEF of 40% and presence of left bundle branch block due to more than 50% of RV pacing. At present time he does not meet criteria for upgrade to Bi V ICD After indication alternatives risks and complications were discussed in detail as outpatient and earlier during this morning evaluation patient gave informed consent and signed informed consent and agreed to proceed with planned procedure. No significant changes in patient's condition since last visit in the office documented in this encounter Miscellaneous Notes * Perioperative Nursing Note - Antonio Chavarria RN - 11/13/2020 1:[address] Enriquez at bedside updated on current status informed of blood pressure 160-170'S/ 107 will give lasix and coreg patient to be discharged at 1400, Dr. Johnson spoke with patient brother in law.to inform of changes. * Brief Op Note - Chelsie Enriquez MD - 11/13/2020 7:58 AM CDT Operative Progress Note Surgical Team: Surgeon(s) and Role: * Chelsie Enriquez MD - Primary Anesthesiologist: Brigido Grande MD Anesthesiologist Feed Elevator Worker: Karan Cope AA * No surgical staff found * DATE OF SURGERY : 11/13/2020 Preoperative Diagnosis: Pre-op Diagnosis * Cardiomyopathy (CMS/HCC) [I42.9] LVEF 40%. Congestive heart failure Neuro heart Association class 3 symptoms. Left bundle branch block Recurrent Wenckebach requiring frequent RV (pacing more than 50%) the causes worsening symptoms of Ca chest Postoperative Diagnosis: Post-op Diagnosis * Cardiomyopathy (CMS/HCC) [I42.9] Procedure(s): Procedure(s) (LRB): upgrade to biv ppm - INSERT LV LEAD W PACEMAKER (PPM) OR IMPLANTABLE CARDIOVERTER-DEFIBRILLATOR (ICD) PLACEMENT (+) 29899 (N/A) Coronary sinus venogram with interpretation. Left axillary subclavian superior vena cava venogram with interpretation Operative Findings: Details of procedure After informed consent was obtained patient was brought to cardiac electrophysiology laboratory at [facility] in fasting state. Area in left chest was sterilely prepped and draped in usual fashion. Venogram of left axillary brachial subclavian and superior vena cava were performedand showed patent old vessels. Fluoroscopy revealed right atrial and right ventricular leads in good positions. After adequate anesthesia and local use of lidocaine the procedure was started. Incision was done in the left upper chest were previously implanted device was done. Dissection down to the pocket was performed. Dual-chamber pacemaker generator was removed the pocket. Enlargement of pocket was done to accommodate larger biventricular pacemaker generator. Access was done under fluoroscopy guidance and micropuncture was used placement of the micropuncture wire. The micro puncture wire was exchanged for regular wire. Nine Greenlandic sheath was inserted. Extended hook coronary guiding catheter was used. In the guide catheter was advanced to the extended hook sheath. Two wire technique was used to help position the inner guide and coronary guide cathetersdue to significant tortuosity in coronary sinus. Venogram of coronary sinus was performed in UMANZOR and KINYARWANDA views and showed the only good target vessel above the diaphragm being in the anterolateral area.. Posterolateral branch appear to be at the diaphragm level that likely to cause diaphragmatic sti mulation. Decisions was made to use quadripolar S left ventricular lead that was advanced over wire to the anterolateral branch. Good capture function impedances and sensing were achieved. QRS complex was consistent with left ventricular pacing with QRS axis in lead 1 being negative and QRS axis in lead be positive. Additional turn of the left ventricle lead was done as per package insert protocol recommendations. Lead appeared to be stable in place. CS in a catheter in guiding catheter were removed using standard feeling technique After that left ventricular pacing lead was sutured to pectoral muscle. Then it was connected to new biventricular pacemaker generator. After that previously implanted right atrial right ventricular pacing leads were disconnected warm dual-chamber pacemaker and connected to the new biventricular pacemaker. Removal of dual-chamber pacemaker was done. Irrigation of pocket was done with antibiotic solution. Good bit of the pocket was achieved of already enlarged pocket done earlier during procedure. Generator was sutured to the pectoral muscle withEthibond 0 suture. Pocket was closed Vicryl 2 0 Vicryl 3 0 and Prolene 3 0 sutures Dermabond was applied to the skin. In addition aquacell dressing was applied. Patient are procedure well no complications. For additional information regarding lead function and numbers please look at the printed report Estimated Blood Loss: No blood loss documented. Intraoperative Fluids: See anesthesia Specimens: No specimen collected in procedure Implants: Nothing was implanted during the procedure Blood/Blood Products Transfused: none Complications: none Condition on Discharge from the operating room was stable Chelsie Enriquez MD Date: 11/14/2020 Time: 12:46 PM Was a Resident involved in this case? No Patient underwent upgrade of dual-chamber pacemaker to Bi V pacemaker. Patient are procedure well no complications Patient will be admitted overnight as observation. Bedrest for now or so. Plan transferred to recovery then to telemetry bed when stable. If patient continues to do well will plan to discharge patient early tomorrow in a.m. after x-ray done in device is interrogated Plan Ancef IV 1 g q.8 hours x2 when patient is in hospital. Dilaudid 1 mg q.3 hours p.r.n. for moderate pain After discharge give cephalexin 500 mg 3 times a day for 10 days. Percocet 5/325 mg Q 6 hours p.r.n. moderate pain total 28 tablets documented in this encounter Plan of Treatment Not on file documented as of this encounter Procedures Procedure Name Priority Date/Time Associated Diagnosis Comments XR CHEST 1 VIEW IP Routine 11/13/2020 11:01 AM CDT POCT GLUCOSE DEVICE Routine 11/13/2020 10:47 AM CDT PACEMAKER GENERATOR CHANGE - DUAL Routine 11/13/2020 10:30 AM CDT Cardiomyopathy (CMS/HCC) INSERTION OF BIV ELECTRODE Routine 11/13/2020 10:30 AM CDT Cardiomyopathy (CMS/HCC) POCT GLUCOSE DEVICE Routine 11/13/2020 6:30 AM CDT documented in this encounter Results [...] signed by: Bautista Ovalles M.D. Sintia Arthur PER DIEM REGISTERED NURSE IMG XR PROCEDURES Final R esult * POCT glucose (11/13/2020 10:47 AM CDT) Glucose, POC 100 70 - 199 mg/dL DAT JENKINS Blood specimen (specimen) 11/13/2020 10:47 AM CDT 11/13/2020 10:47 AM CDT Chelsie Enriquez MD LAB POCT ORDERABLES - DEVIC E Final Result DAT [id number] Department [place] [address] * INSERTION OF BIV ELECTRODE, PACEMAKER GENERATOR CHANGE - DUAL (11/13/2020 10:30 AM CDT) Anatomical Region Laterality Modality X-Ray Angiograph y Narrative 11/14/2020 12:47 PM CDT Operative Progress Note Surgical Team: Surgeon(s) and Role: ?? * Chelsie Enriquez MD - Primary Anesthesiologist: Brigido Grande MD Anesthesiologist Feed Elevator Worker: Karan Cope AA * No surgical staff found * DATE OF SURGERY : 11/13/2020 Preoperative Diagnosis: Pre-op Diagnosis ?? * Cardiomyopathy (CMS/HCC) [I42.9] LVEF 40%. Congestive heart failure Neuro heart Association class 3 symptoms. Left bundle branch block Recurrent Wenckebach requiring frequent RV (pacing more than 50%) the causes worsening symptoms of Ca chest Postoperative Diagnosis: Post-op Diagnosis ?? * Cardiomyopathy (CMS/HCC) [I42.9] Procedure(s): Procedure(s) (LRB): upgrade to biv ppm - INSERT LV LEAD W PACEMAKER (PPM) OR IMPLANTABLE CARDIOVERTER-DEFIBRILLATOR (ICD) PLACEMENT (+) 38843 (N/A) Coronary sinus venogram with interpretation. Left axillary subclavian superior vena cava venogram with interpretation Operative Findings: Details of procedure After informed consent was obtained patient was brought to cardiac electrophysiology laboratory at [facility] in fasting state. ??Area in left chest was sterilely prepped and draped in usual fashion. ??Venogram of left axillary brachial subclavian and superior vena cava were performed and showed patent old vessels. Fluoroscopy revealed right atrial and right ventricular leads in good positions. After adequate ??anesthesia and local use of lidocaine the procedure was started. ??Incision was done in the left upper chest were previously implanted device was done. ??Dissection down to the pocket was performed. Dual-chamber pacemaker generator was removed the pocket. ??Enlargement of pocket was done to accommodate larger biventricular pacemaker generator. Access was done under fluoroscopy guidance and micropuncture was used placement of the micropuncture wire. ??The micro puncture wire was exchanged for regular wire. ??Nine Greenlandic sheath was inserted. ??Extended hook coronary guiding catheter was used. ??In the guide catheter was advanced to the extended hook sheath. ??Two wire technique was used to help position the inner guide and coronary guide catheters due to significant tortuosity in coronary sinus. ??Venogram of coronary sinus was performed in UMANZOR and KINYARWANDA views and showed the only good target vessel above the diaphragm being in the anterolateral area.. ??Posterolateral branch appear to be at the diaphragm level that likely to cause diaphragmatic stimulation. Decisions was made to use quadripolar S left ventricular lead that was advanced over wire to the anterolateral branch. ??Good capture function impedances and sensing were achieved. ??QRS complex was consistent with left ventricular pacing with QRS axis in lead 1 being negative and QRS axis in lead be positive. ??Additional turn of the left ventricle lead was done as per package insert protocol recommendations. ??Lead appeared to be stable in place. CS in a catheter in guiding catheter were removed using standard feeling technique After that left ventricular pacing lead was sutured to pectoral muscle. ?? Then it was connected to new biventricular pacemaker generator. ??After that previously implanted right atrial right ventricular pacing leads were disconnected warm dual-chamber pacemaker and connected to the new biventricular pacemaker. ??Removal of dual-chamber pacemaker was done. Irrigation of pocket was done with antibiotic solution. ??Good bit of the pocket was achieved of already enlarged pocket done earlier during procedure. ??Generator was sutured to the pectoral muscle with Ethibond 0 suture. ??Pocket was closed Vicryl 2 0 Vicryl 3 0 and Prolene 3 0 sutures Dermabond was applied to the skin. ??In addition aquacell dressing was applied. Patient are procedure well no complications. For additional information regarding lead function and numbers please look at the printed report Estimated Blood Loss: No blood loss documented. Intraoperative Fluids: See anesthesia Specimens: No specimen collected in procedure Implants: Nothing was implanted during the procedure ?? Blood/Blood Products Transfused: none Complications: none Condition on Discharge from the operating room was stable Chelsie Enriquez MD Date: 11/13/2020 ??Time: 11:12 AM Was a Resident involved in this case? ??No Patient underwent upgrade of dual-chamber pacemaker to Bi V pacemaker. ?? Patient are procedure well no complications Patient will be admitted overnight as observation. Bedrest for now or so. Plan transferred to recovery then to telemetry bed when stable. If patient continues to do well will plan to discharge patient early tomorrow in a.m. after x-ray done in device is interrogated Plan Ancef IV 1 g q.8 hours x2 when patient is in hospital. Dilaudid 1 mg q.3 hours p.r.n. for moderate pain After discharge give cephalexin 500 mg 3 times a day for 10 days. Percocet 5/325 mg Q 6 hours p.r.n. moderate pain total 28 tablets Chelsie Enriquez MD CV ELECTROPHYSIOLOGY PROCS Final Result * POCT glucose (11/13/2020 6:30 AM CDT) Glucose, POC 116 70 - 199 mg/dL DAT JENKINS Blood specimen (specimen) 11/13/2020 6:30 AM CDT 11/13/2020 6:30 AM CDT Chelsie Enriquez MD LAB POCT ORDERABLES - DEVIC E Final Result DAT JENKINS [id number] [address] Department [place] [address] documented in this encounter Visit Diagnoses Diagnosis Cardiomyopathy (HCC)- Primary Other primary cardiomyopathies Cardiomyopathy (HCC) Other primary cardiomyopathies Cardiomyopathy (HCC) Other primary cardiomyopathies documented in this encounter Admitting Diagnoses Diagnosis Cardiomyopathy (HCC) Other primary cardiomyopathies documented in this encounter Administered Medications Inactive Administered Medications - up to 3 most recent administrations Medication Order MAR Action Action Date Dose Rate Site acetaminophen (TYLENOL) 500 mg tablet - ADS Override Pull Starting on Thu11/13/20 at 0635, For 1 dose, Created by cabinet override acetaminophen (TYLENOL) tablet 1,000 mg 1,000 mg, oral, Once, On Thu11/13/20 at 0715, For 1 dose, Pre-Op, Indications: Pre-Emptive AnalgesiaIndications:Pre-Emptiv e Analgesia Given 11/13/2020 6:36 AM CDT 1,000 mg carvediloL (COREG) tablet 6.25 mg 6.25 mg, oral, 2 times daily with meals (bkfst, dinner), First dose on Thu11/13/20 at 1800 carvediloL (COREG) tablet 6.25 mg 6.25 mg, oral, 2 times daily with meals (bkfst, dinner), First dose on Thu11/13/20 at 1300, For 1 dose, Phase I Given 11/13/2020 12:18 PM CDT 6.25 mg cephalexin (KEFLEX) capsule 500 mg 500 mg, oral, 3 times daily, First dose on Thu11/13/20 at 1315, For 30 doses, Indications: Prophylaxis, SurgicalIndications:Prophylaxis , Surgical furosemide (LASIX) 10 mg/mL injection - ADS Override Pull Starting on Thu11/13/20 at 1141, For 1 dose, Antonio Chavarria: cabinet override Room temperature only furosemide (LASIX) 10 mg/mL injection 40 mg 40 mg, intravenous, Administer over 2 Minutes, Once, On Thu11/13/20 at 1200, For 1 dose, Room temperature only Given 11/13/2020 11:43 AM CDT 40 mg furosemide (LASIX) tablet 40 mg 40 mg, oral, 2 times daily, First dose (after last modification) on Thu11/13/20 at 1700 Lactated Ringer's (LR) infusion 30 mL/hr, intravenous, Continuous, Starting on Thu11/13/20 at 0715 New Bag 11/13/2020 7:56 AM CDT oxyCODONE-acetaminophen (PERCOCET) 5-325 mg per tablet 1 tablet 1 tablet, oral, 4 times daily PRN, 1st line for pain, Starting on Thu11/13/20 at 1230, For 29 doses, Indications: PainIndications:Pain documented in this encounter Discontinued Medications Medication Sig Discontinue Reason Start Date End Da te metFORMIN (GLUCOPHAGE) 1,000 mg tablet Take 1,000 mg by mouth daily with breakfast Reorder 11/13/2020 rivaroxaban (XARELTO) 15 mg tablet Take 15 mg by mouth daily Reorder 11/13/2020 documented as of this encounter Historical Medications * This list may reflect changes made after this encounter. potassium chloride ER (potassium chloride ER) 20 mEq CR tablet Take 1 tablet (20 mEq total) by mouth daily montelukast (SINGULAIR) 10 mg tablet Take 1 tablet (10 mg total) by mouth nightly magnesium oxide 400 mg magnesium capsule Take 400 mg by mouth 2 (two) times a day furosemide (LASIX) 40 mg tablet Take 1 tablet (40 mg total) by mouth 2 (two) times a day folic acid (FOLVITE) 1 mg tablet Take 1 tablet (1 mg total) by mouth daily atorvastatin (LIPITOR) 20 mg tablet Take 1 tablet (20 mg total) by mouth daily multivitamin capsule Take 1 capsule by mouth daily cetirizine (ZyrTEC) 10 mg tablet Take 1 tablet (10 mg total) by mouth daily thiamine (VITAMIN B1) 100 mg tablet Take 100 mg by mouth daily 3 tamsulosin (FLOMAX) 0.4 mg extended release capsule Take 0.4 mg by mouth daily 3 rivaroxaban (XARELTO) 15 mg tablet Take 15 mg by mouth daily 1 metFORMIN (GLUCOPHAGE) 1,000 mg tablet Take 1,000 mg by mouth daily with breakfast 1 aspirin 81 mg enteric coated tablet Take 81 mg by mouth daily 3 lisinopriL (PRINIVIL,ZESTRI L) 20 mg tablet Take 20 mg by mouth daily 3 added in this encounter Active and Recently Administered Medications Times are shown in CDT. Scheduled Medication Order 11/11/2020 11/12/2020 11/13/2020 acetaminophen (TYLENOL) tablet 1,000 mg (COMPLETED) 1,000 mg, oral, Once, On Thu11/13/20 at 0715, For 1 dose, Pre-Op, Indications: Pre-Emptive Analgesia 0636 (Given - Provid er: David Morrison RN) aspirin enteric coated tablet 81 mg 81 mg, oral, Daily, First dose on Thu11/13/20 at 1200, Do not crush, chew, cut, dissolve, open or otherwise manipulate tablet/capsule. 1200 (Due) atorvastatin (LIPITOR) tablet 20 mg 20 mg, oral, Daily, First dose on Thu11/13/20 at 1200 1200 (Due) carvediloL (COREG) tablet 6.25 mg 6.25 mg, oral, 2 times daily with meals (bkfst, dinner), First dose on Thu11/13/20 at 1800 carvediloL (COREG) tablet 6.25 mg (COMPLETED) 6.25 mg, oral, 2 times daily with meals (bkfst, dinner), First dose on Thu11/13/20 at 1300, For 1 dose, Phase I 1218 (Given - Provid er: Antonio Chavarria RN) cephalexin (KEFLEX) capsule 500 mg 500 mg, oral, 3 times daily, First dose on Thu11/13/20 at 1315, For 30 doses, Indications: Prophylaxis, Surgical 1315 (Due) cetirizine (ZyrTEC) tablet 10 mg 10 mg, oral, Daily, First dose on Thu11/13/20 at 1200 1200 (Due) folic acid (FOLVITE) tablet 1 mg 1 mg, oral, Daily, First dose on Thu11/13/20 at 1200 1200 (Due) furosemide (LASIX) 10 mg/mL injection 40 mg (COMPLETED) 40 mg, intravenous, Administer over 2 Minutes, Once, On Thu11/13/20 at 1200, For 1 dose, Room temperature only 1143 (Given - Provid er: Antonio Chavarria RN) furosemide (LASIX) tablet 40 mg 40 mg, oral, 2 times daily, First dose (after last modification) on Thu11/13/20 at 1700 lisinopriL (PRINIVIL,ZESTRIL) tablet 20 mg 20 mg, oral, Daily, First dose on Thu11/13/20 at 1200 1200 (Due) magnesium oxide (MAG-OX) tablet 400 mg 400 mg, oral, 2 times daily, First dose on Thu11/13/20 at 1200, 1 tablet = Magnesium oxide 400 mg = 241.3 mg elemental magnesium 1200 (Due) montelukast (SINGULAIR) tablet 10 mg 10 mg, oral, Nightly, First dose on Thu11/13/20 at 2100 potassium chloride ER (KLOR-CON) extended release tablet 20 mEq 20 mEq, oral, Daily, First dose on Thu11/13/20 at 1200, Do not crush, chew, cut, dissolve, open or otherwise manipulate tablet/capsule. 1200 (Due) rivaroxaban (XARELTO) tablet 15 mg 15 mg, oral, Daily, First dose on Thu11/14/20 at 0900, Nurse to discontinue heparin infusion order and associated bolus at first administration of rivaroxaban using ? order condition met? order source. If patient is eating, administer doses of 15 mg or greater with food. If patient is not eating, still administer the dose unless instructed differently by provider., Indications: prevention of thromboembolism in paroxysmal atrial fib tamsulosin (FLOMAX) extended release capsule 0.4 mg 0.4 mg, oral, Daily, First dose on Thu11/13/20 at 1200, Do not crush, chew, cut, dissolve, open or otherwise manipulate tablet/capsule. 1200 (Due) thiamine (VITAMIN B-1) tablet 100 mg 100 mg, oral, Daily, First dose on Thu11/13/20 at 1200 1200 (Due) Continuous Medication Order 11/11/2020 11/12/2020 11/13/2020 Lactated Ringer's (LR) infusion 30 mL/hr, intravenous, Continuous, Starting on Thu11/13/20 at 0715 0756 (New Bag - Prov ider: STACI Rodriguez)1034 (Anesthesia Volume Adjustment - Provider: STACI Rodriguez)1042 (Stopped - Provider: STACI Rodriguez)1051 (Continued from OR - Provider: Antonio Chavarria RN) PRN Medication Order 11/11/2020 11/12/2020 11/13/2020 diphenhydrAMINE (BENADRYL) injection 12.5 mg 12.5 mg, intravenous, Administer over 2 Minutes, Every 15 min PRN, itching, Starting on Thu11/13/20 at 1043, For 2 doses, Phase I, Max cumulative dose 50 mg., Indications: Itching gentamicin (GARAMYCIN) 80 mg in sodium chloride 0.9% 500 mL irrigation solution (CANCELED) As needed, Starting on Thu11/13/20 at 0958, Intra-Procedure (CV) 0958 (Given - Provid er: Chelsie Enriquez MD) hydrALAZINE (APRESOLINE) injection 5 mg 5 mg, intravenous, Administer over 2 Minutes, Every 15 min PRN, high blood pressure, Starting on Thu11/13/20 at 1043, Phase I, Max cumulative dose 20 mg. Dose if systolic BP greater than 180 AND heart rate less than 70., Indications: hypertension iodixanoL (VISIPAQUE) 320 mg iodine/mL injection (CANCELED) As needed, Starting on Thu11/13/20 at 0900, Intra-Procedure (CV) 0900 (Given - Provid er: Chelsie Enriquez MD) ipratropium-albuteroL (DUO-NEB) 0.5-2.5 mg/3 mL nebulizer solution 3 mL 3 mL, nebulization, Once as needed, wheezing, Starting on Thu11/13/20 at 1043, For 1 dose, Phase I, Notify Anesthesiologist., Indications: Bronchospastic Pulmonary Disease lidocaine (XYLOCAINE) 10 mg/mL (1 %) injection (CANCELED) As needed, Starting on Thu11/13/20 at 0827, Intra-Procedure (CV), Indications: Administration of Local Anesthesia 08 (Given - Provid er: Chelsie Enriquez MD - Comment: NaHCO3 added to mixture 10ml in 40ml lidocaine)08 (Given - Provider: Chelsie Enriquez MD) metoprolol (LOPRESSOR) injection 1 mg 1 mg, intravenous, Administer over 1 Minutes, Every 5 min PRN, high blood pressure, Starting on Thu11/13/20 at 1043, Phase I, Max cumulative dose 5 mg. Dose if systolic blood pressure greater than 180 AND HR greater than 70. naloxone (NARCAN) 0.4 mg/mL injection 0.04-0.4 mg 0.04-0.4 mg, intravenous, Once as needed, other, excessive sedation/respiratory depression, Starting on Thu11/13/20 at 1043, For 1 dose, Phase I, Dilute 0.4 mg with 9 mL NS (final concentration 0.04 mg/mL). For respiratory depression (respiratory rate less than 6), administer 0.4 mg IVP over 30 seconds. For excessive sedation administer 0.04 mg (1 mL) every 1 minute until desired level of alertness. For IV, administer over 30 seconds., Indications: Opioid Toxicity ondansetron (ZOFRAN) injection 4 mg 4 mg, intravenous, Administer over 2 Minutes, Once as needed, nausea, vomiting, Starting on Thu11/13/20 at 1043, For 1 dose, Phase I, Proceed to prochlorperazine if ondansetron has been given within the last 6 hours. oxyCODONE-acetaminophen (PERCOCET) 5-325 mg per tablet 1 tablet 1 tablet, oral, 4 times daily PRN, 1st line for pain, Starting on Thu11/13/20 at 1230, For 29 doses, Indications: Pain prochlorperazine (COMPAZINE) injection 10 mg 10 mg, intravenous, Administer over 2 Minutes, Once as needed, nausea, vomiting, Starting on Thu11/13/20 at 1043, For 1 dose, Phase I, If nausea/vomiting not relieved by ondansetron within 30 minutes or if ondansetron has been given within the last 6 hours. sodium bicarbonate 8.4 % (1 mEq/mL) injection (CANCELED) Administer over 5 Minutes, As needed, Starting on Thu11/13/20 at 0829, Intra-Procedure (CV) 0829 (Given - Provid er: Chelsie Enriquez MD - Comment: added to lidocaine by Dr Enriquez) sodium chloride 0.9% flush 0.5-20 mL 0.5-20 mL, intra-catheter, As needed, line care, Starting on Thu11/13/20 at 0634, Pre-Op, Flush volume based on line type and size. Flush before and after each use. , Indications: Flushing sodium chloride 0.9% solution (CANCELED) As needed, Starting on Thu11/13/20 at 0827, Intra-Procedure (CV) 0827 (Given - Provid er: Chelsie Enriquez MD) documented in this encounter Orders Medications Ordered That Anthony ht Not Have Been Administered Count Last Ordered Date First Ordered Date aspirin enteric coated tablet 81 mg 1 11/13 atorvastatin (LIPITOR) tablet 20 mg 1 11/13 carvediloL (COREG) tablet 6.25 mg 1 021 cephalexin (KEFLEX) capsule 500 mg 1 2020 cetirizine (ZyrTEC) tablet 10 mg 1 11/14/19 21 diphenhydrAMINE (BENADRYL) i njection 12.5 mg 1 11/13/2020 fentaNYL (SUBLIMAZE) preserv ative free injection 25 mcg 1 11/13/2020 folic acid (FOLVITE) tablet 1 mg 1 11/14/19 21 furosemide (LASIX) tablet 40 mg 2 gentamicin (GARAMYCIN) 80 mg in sodium chloride 0.9% 500 mL irrigation solution 1 11/13/2020 hydrALAZINE (APRESOLINE) injection 5 mg 1 0 11/13/2020 HYDROmorphone (DILAUDID) injection 1 mg 1 0 11/13/2020 iodixanoL (VISIPAQUE) 320 mg iodine/mL injection 1 11/13/2020 ipratropium-albuteroL (DUO-N EB) 0.5-2.5 mg/3 mL nebulizer solution 3 mL 1 11/13/2020 Lactated Ringer's (LR) infusion 1 lidocaine (XYLOCAINE) 10 mg/ mL (1 %) injection 1 11/13/2020 lisinopriL (PRINIVIL,ZESTRIL) tablet 20 mg 1 11/13/2020 magnesium oxide (MAG-OX) tablet 400 mg 1 meperidine (DEMEROL) preserv ative free injection 12.5 mg 1 11/13/2020 metoprolol (LOPRESSOR) injection 1 mg 1 01/2021 montelukast (SINGULAIR) tablet 10 mg 1 01/2021 naloxone (NARCAN) 0.4 mg/mL injection 0.04-0.4 mg 1 11/13/2020 ondansetron (ZOFRAN) injection 4 mg 1 11/13 oxyCODONE-acetaminophen (PER COCET) 5-325 mg per tablet 1 tablet 1 11/13/2020 potassium chloride ER (KLOR- CON) extended release tablet 20 mEq 1 11/13/2020 prochlorperazine (COMPAZINE) injection 10 mg 1 11/13/2020 rivaroxaban (XARELTO) tablet 15 mg 1 2020 sodium bicarbonate 8.4 % (1 mEq/mL) injection 1 11/13/2020 sodium chloride 0.9% flush 0.5-20 mL 1 01/2021 sodium chloride 0.9% solution 1 11/13/2020 tamsulosin (FLOMAX) extended release capsule 0.4 mg 1 11/13/2020 thiamine (VITAMIN B-1) tablet 100 mg 1 01/2021 Diet Count Last Ordered Date First Orde red Date ADULT DISCHARGE DIET 1 11/13/2020 Nursing Count Last Ordered Date First Orde red Date DISCHARGE ACTIVITY 2 11/13/2020 DISCHARGE CALL PROVIDER 6 11/13/2020 DISCHARGE DRESSING 1 11/13/2020 DISCHARGE INSTRUCTIONS 1 11/13/2020 FOLLOW UP WITH ESTABLISHED PROVIDER 1 11/13 documented in this encounter Care Teams Security System Administrator Relationship Specialty Start Date End Date No, Physician PCP - General 11/13/20 03/01/23 Chelsie Enriquez MD [address] [place] [address] Consulting Physician Cardiology 11/13/20 documented as of this encounter
--- OUTSIDE RECORDS SUMMARY | 2024-06-14 21:29 | XMS_ITS | Encounter Summary ---
Author Organization [facility] Healthcare Address [address] [place] [address] Care Team Providers Care Dado Operator Name Role Phone No, Physician Primary Care Provider [phone] Chelsie Enriquez MD Unavailable [phone] Encounter Details Date Type Department Care Team (Late st Contact Info) Description 11/13/2020 8:00 AM CDT - 11/13/2020 10:00 AM CDT Surgery [facility] Electrophysiology Lab [address] [place] [address] Chelsie Enriquez MD [address] [place] [address] REMOVE/REPLACE PACEMAKER (PPM) DUAL LEAD SYSTEM 05[address] Surgery Details Date/Time Status Location OR Service Patient Class Case Class Case Type Trauma Case? 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 Gender Identity Not on file Sexual Orientation Not on file documented as of this encounter Last Filed Vital Signs Vital Sign Reading Time Taken Comments Blood Pressure 165/101 11/13/2020 6:00 AM CDT Pulse 94 11/13/2020 6:00 AM CDT Temperature 36.8 ??C (98.2 ??F) 11/13/2020 6:00 AM CD T Respiratory Rate 18 11/13/2020 6:00 AM CDT Oxygen Saturation 97% 11/13/2020 6:00 AM CDT Inhaled Oxygen Concentration - - Weight 117.3 kg (258 lb 8 oz) 11/13/2020 6:00 AM CDT Height 185.4 cm (6' 1 ) 11/13/2020 6:00 AM CDT Body Mass Index 34.1 11/13/2020 6:00 AM CDT documented in this encounter Discharge Instructions * Discharge Instructions* Marie Jama RN - 11/13/2020 12:49 PM CDT * Attachments The following attachments cannot be sent through Care Everywhere. * General Anesthesia (Discharge Care) (Bulgarian) * Implantable Cardioverter Defibrillator (Discharge Care) (Bulgarian) documented in this encounter Medications at Time [...] were sent to the pharmacy already through [employer]. FU were scheduled * Chelsie Enriquez MD [...] - Primary Anesthesiologist: Brigido Grande MD Anesthesiologist Furs Salesperson: Karan Cope AA * No surgical staff [...] (PPM) OR IMPLANTABLE CARDIOVERTER-DEFIBRILLATOR (ICD) PLACEMENT (+) 14876 (N/A) Coronary sinus venogram with interpretation. Left axillary subclavian superior vena cava venogram with interpretation Operative Findings: Details of procedure After informed consent was obtained patient was brought to cardiac electrophysiology laboratory at [facility] in fasting state. Area in left chest [...] wire was exchanged for regular wire. Nine Cypriot sheath was inserted. Extended hook coronary guiding catheter was used. In the guide catheter was advanced to the extended hook sheath. Two wire technique was used to help position the inner guide and coronary guide cathetersdue to significant tortuosity in coronary sinus. Venogram of coronary sinus was performed in [place] and [place] views and showed the only good target [...] of defibrillator. ??No pneumothorax. Electronically signed by: Shaista Mathias 11/13/2020 11:18 AM CDT EXAMINATION: XR CHEST [...] signed by: Bautista Ovalles M.D. Sintia Arthur KNOT CUTTER IMG XR PROCEDURES Final R esult * POCT glucose (11/13/2020 10:47 AM CDT) Glucose, POC 100 70 - 199 mg/dL DAT JENKINS Blood specimen (specimen) 11/13/2020 10:47 AM CDT 11/13/2020 10:47 AM CDT Chelsie Enriquez MD LAB POCT ORDERABLES - DEVIC E Final Result DAT [id number] [facility] Department of Laboratories [place], [place] [id number] * INSERTION OF BIV ELECTRODE, PACEMAKER GENERATOR CHANGE - DUAL (11/13/2020 10:30 AM CDT) Anatomical Region Laterality Modality X-Ray Angiograph y Narrative 11/14/2020 12:47 PM CDT Operative Progress Note Surgical Team: Surgeon(s) and Role: ?? * Chelsie Enriquez MD - Primary Anesthesiologist: Brigido Grande MD Anesthesiologist Furs Salesperson: Karan Cope AA * No surgical staff [...] (PPM) OR IMPLANTABLE CARDIOVERTER-DEFIBRILLATOR (ICD) PLACEMENT (+) 80897 (N/A) Coronary sinus venogram with interpretation. Left axillary subclavian superior vena cava venogram with interpretation Operative Findings: Details of procedure After informed consent was obtained patient was brought to cardiac electrophysiology laboratory at [facility] in fasting state. ??Area in left chest [...] wire was exchanged for regular wire. ??Nine Cypriot sheath was inserted. ??Extended hook coronary guiding catheter was used. ??In the guide catheter was advanced to the extended hook sheath. ??Two wire technique was used to help position the inner guide and coronary guide catheters due to significant tortuosity in coronary sinus. ??Venogram of coronary sinus was performed in [place] and [place] views and showed the only good target [...] POC 116 70 - 199 mg/dL DAT Blood specimen (specimen) 11/13/2020 6:30 AM CDT 11/13/2020 6:30 AM CDT Chelsie Enriquez MD LAB POCT ORDERABLES - DEVIC E Final Result DAT JENKINS [id number] [facility] Department [place] [address] documented in this encounter Visit Diagnoses Diagnosis [...] 0715, For 1 dose, Pre-Op, Indications: Pre-Emptive AnalgesiaIndications:Pre-E mptive Analgesia Given 11/13/2020 6:36 AM CDT 1,000 [...] at 1315, For 30 doses, Indications: Prophylaxis, SurgicalIndications:Prophy laxis, Surgical furosemide (LASIX) 10 mg/mL injection - [...] (after last modification) on Thu11/13/20 at 1700 gentamicin (GARAMYCIN) 80 mg in sodium chloride 0.9% 500 mL irrigation solution As needed, Starting on Thu11/13/20 at 0958, Intra-Procedure (CV) Given 11/13/2020 9:58 AM CDT 200 mL Surgical Site iodixanoL (VISIPAQUE) 320 mg iodine/mL injection As needed, Starting on Thu11/13/20 at 0900, Intra-Procedure (CV) Given 11/13/2020 9:00 AM CDT 100 mL Other (Comment) Lactated Ringer's (LR) infusion 30 mL/hr, intravenous, Continuous, Starting on Thu11/13/20 at 0715 New Bag 11/13/2020 7:56 AM CDT lidocaine (XYLOCAINE) 10 mg/mL (1 %) injection As needed, Starting on Thu11/13/20 at 0827, Intra-Procedure (CV), Indications: Administration of Local AnesthesiaIndications:Admi nistration of Local Anesthesia Given 11/13/2020 8:31 AM CDT 30 mL Left Chest Given 11/13/2020 8:27 AM CDT 5 mL Le ft Chest oxyCODONE-acetaminophen (PERCOCET) 5-325 mg per tablet 1 tablet 1 tablet, oral, 4 times daily PRN, 1st line for pain, Starting on Thu11/13/20 at 1230, For 29 doses, Indications: PainIndications:Pain sodium bicarbonate 8.4 % (1 mEq/mL) injection Administer over 5 Minutes, As needed, Starting on Thu11/13/20 at 0829, Intra-Procedure (CV) Given 11/13/2020 8:29 AM CDT 10 mEq sodium chloride 0.9% solution As needed, Starting on Thu11/13/20 at 0827, Intra-Procedure (CV) Given 11/13/2020 8:27 AM CDT 1,000 mL documented in this encounter Discontinued Medications Medication [...] Intra-Procedure (CV), Indications: Administration of Local Anesthesia 0827 (Given - Provid er: Chelsie Enriquez MD - Comment: NaHCO3 added to mixture 10ml in 40ml lidocaine)0831 (Given - Provider: Chelsie Enriquez MD) metoprolol [...] 21 furosemide (LASIX) tablet 40 mg 2 hydrALAZINE (APRESOLINE) injection 5 mg 1 0 11/13/2020 HYDROmorphone (DILAUDID) injection 1 mg 1 0 11/13/2020 ipratropium-albuteroL (DUO-N EB) 0.5-2.5 mg/3 mL nebulizer solution 3 mL 1 11/13/2020 Lactated Ringer's (LR) infusion 1 lisinopriL (PRINIVIL,ZESTRIL) tablet 20 mg 1 11/13/2020 magnesium oxide (MAG-OX) tablet 400 mg 1 meperidine (DEMEROL) preserv ative free injection 12.5 mg 1 11/13/2020 metoprolol (LOPRESSOR) injection 1 mg 1 01/2021 montelukast (SINGULAIR) tablet 10 mg 01/2021 naloxone (NARCAN) 0.4 mg/mL injection 0.04-0.4 mg 11/13/2020 ondansetron (ZOFRAN) injection 4 mg 11/13 oxyCODONE-acetaminophen (PER COCET) 5-325 mg per tablet 1 tablet 1 11/13/2020 potassium chloride ER (KLOR- CON) extended release tablet 20 mEq 1 11/13/2020 prochlorperazine (COMPAZINE) injection 10 mg 1 11/13/2020 rivaroxaban (XARELTO) tablet 15 mg 1 2020 sodium chloride 0.9% flush 0.5-20 mL 01/2021 tamsulosin (FLOMAX) extended release capsule 0.4 mg [...] 11/13 documented in this encounter Care Teams Dado Operator Relationship Specialty Start Date End Date No, Physician PCP - General 11/13/20 03/01/23 Chelsie Enriquez MD [address] [place] [id number] Consulting Physician Cardiology 11/13/20 documented as of this encounter
--- OUTSIDE RECORDS SUMMARY | 2024-06-14 21:29 | XMS_ITS | Encounter Summary ---
Author Organization [facility] Address [address] [place] [address] Phone Care Team Providers Care Horse Buyer Name Role Phone Chelsie Enriquez MD Unavailable [phone] Treasure Johns NP Primary Care Provider [phone] Reason for Visit * Reason Comments New Patient * Consultation (Routine) - Closed Specialty Diagnoses / Procedures Referred By Luly landrum Referred To Contact Plastic Surgery Diagnoses Dermoid cyst of skin of back Oniel Higgins MD [address] [place] [address] Phone: tel: fax: Marleni Desai MD [address] [facility] [id number] [place] [address] Phone: tel: fax: Referral ID Status Reason Start Date Expiration Date V isits Requested Visits Authorized [id number] Closed Specialty Services Required 12/19/2022 01/18/2024 12 12 Encounter Details Date Type Department Care Team (Late st Contact Info) Description 03/02/2023 10:00 AM CDT Office Visit [facility] Surgery [address] [place] [address] [address] [place] [phone] Marleni Desai MD [address] 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 male who presents for cysts and masses on back Present for 1 yr Slowly growing Spontaneously popped No prior infections Was seen by Dr. Higgins - recommend evaluation for possible removal. 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 No pertinent family history. Social History Tobacco Use Smoking status: Former Types: Cigarettes Quit date: 06/08/2020 Years since quittin.7 Smokeless tobacco: Never Substance and Sexual Activity Drug use: Never Sexual activity: Defer Alcohol Use: Not At Risk (11/13/2020) AUDIT-C Frequency of Alcohol Consumption: 2-4 times a month Average Number of Drinks: 1 or 2 Frequency of Binge Drinking: Never No Known Allergies Current Outpatient Medications on File Prior to Visit Medication Sig Dispense Refill allopurinoL (ZYLOPRIM) 100 mg tablet atorvastatin (LIPITOR) 20 mg tablet Take 1 tablet (20 mg total) by mouth daily cetirizine (ZyrTEC) 10 mg tablet Take 1 tablet (10 mg total) by mouth daily Coreg 25 mg tablet Coreg 25 mg tablet dilTIAZem (CARDIZEM) 90 mg tablet TAKE ONE TABLET BY MOUTH TWICE DAILY @ 9AM-5PM Flovent HFA 44 mcg/actuation inhaler folic acid (FOLVITE) 1 mg tablet Take 1 tablet (1 mg total) by mouth daily furosemide (LASIX) 40 mg tablet Take 1 tablet (40 mg total) by mouth 2 (two) times a day ipratropium-albuteroL (DUO-NEB) 0.5-2.5 mg/3 mL nebulizer solution magnesium oxide 400 mg magnesium capsule Take 400 mg by mouth daily metFORMIN (GLUCOPHAGE) 1,000 mg tablet Take 1 tablet (1,000 mg total) by mouth daily with breakfast montelukast (SINGULAIR) 10 mg tablet Take 1 tablet (10 mg total) by mouth nightly multivitamin capsule Take 1 capsule by mouth daily potassium chloride ER (potassium chloride ER) 20 mEq CR tablet Take 1 tablet (20 mEq total) by mouth daily valsartan (DIOVAN) 320 mg tablet valsartan 320 mg tablet Xarelto 20 mg tablet [DISCONTINUED] aspirin 81 mg enteric coated tablet Take 81 mg by mouth daily [DISCONTINUED] lisinopriL (PRINIVIL,ZESTRIL) 20 mg tablet Take 20 mg by mouth daily [DISCONTINUED] rivaroxaban (XARELTO) 15 mg tablet Take 1 tablet (15 mg total) by mouth daily [DISCONTINUED] tamsulosin (FLOMAX) 0.4 mg extended release capsule Take 0.4 mg by mouth daily [DISCONTINUED] thiamine (VITAMIN B1) 100 mg tablet Take 100 mg by mouth daily No current facility-administered medications on file prior to visit. Review of Systems: A full review of system was obtained, reviewed, and scanned into the chart. Physical Exam: There were no vitals taken for this visit. Gen: NAD, A&O x3 Pulm: unlabored CV: regular rate Back: A 2 x 2 cm cyst noted to right mid back, punctum noted. A 7 x 5 cm firm mass noted to Left mid back, just below scapula. Not fixed to deep tissue. No evidence of infection Assessment and Plan: 62 y.o. male who presents with right back cyst and left back lipoma. Discussed findings at length. Pt with back masses that have been present for some time. Clinically consistent with right back cyst and left back lipoma. They are somewhat symptomatic to him and he would like to have them excised. Cards clearance I described the risks and rationale of surgical treatment, including, but not limited to, bleeding,infection, pain, scarring, injury to surrounding structures, incomplete excision, need for re-excision, recurrence, hematoma, seroma, and need for further surgery. All questions were answered. The patient verbalized understanding and wished to proceed. We will plan to proceed with excision bilateral back masses. This will be done in the OR under local / MAC. We will schedule accordingly. Pt may call back with any questions or concerns in the interim. Follow up: surgery Restrictions: none I spent 30 minutes on this patient encounter which included review of medical records. Over half the time was spent with the patient face to face discussing the treatment plan, counseling and coordinating care. Marleni Desai MD 03/02/23 9:49 AM This document was transcribed using voice recognition software without a human publishing specialist. Itmay contain typographical, grammatical, and/or syntax errors. documented in this encounter Plan of Treatment Not on file documented as of this encounter Visit Diagnoses Diagnosis Lipoma of torso- Primary Dermoid cyst of skin of back documented in this encounter Discontinued Medications Medication Sig Discontinue Reason Start Date End Da te lisinopriL (PRINIVIL,ZESTRIL) 20 mg tablet Take 20 mg by mouth daily 03/02/2023 aspirin 81 mg enteric coated tablet Take 81 mg by mouth daily 03/02/2023 tamsulosin (FLOMAX) 0.4 mg extended release capsule Take 0.4 mg by mouth daily 03/02/2023 thiamine (VITAMIN B1) 100 mg tablet Take 100 mg by mouth daily 03/02/2023 rivaroxaban (XARELTO) 15 mg tablet Take 1 tablet (15 mg total) by mouth daily 11/14/2020 03/02/2023 documented as of this encounter Historical Medications * This list may reflect changes made after this encounter. Flovent HFA 44 mcg/actuation inhaler 02/27/2023 ipratropium-albu teroL (DUO-NEB) 0.5-2.5 mg/3 mL nebulizer solution 02/27/2023 valsartan (DIOVAN) 320 mg tablet valsartan 320 mg tablet 06/08/1969 Xarelto 20 mg tablet Take 1 tablet (20 mg total) by mouth daily with breakfast 02/27/2023 Coreg 25 mg tablet Take 1 tablet (25 mg total) by mouth 2 (two) times a day with meals 06/08/1969 allopurinoL (ZYLOPRIM) 100 mg tablet Take 1 tablet (100 mg total) by mouth daily 02/27/2023 dilTIAZem (CARDIZEM) 90 mg tablet TAKE ONE TABLET BY MOUTH TWICE DAILY @ 9AM-5PM 3 added in this encounter Orders Outpatient Referral Count Last Ordered Date Fir st Ordered Date AMB REFERRAL TO PLASTIC SURGERY 1 3 documented in this encounter Care Teams Horse Buyer Relationship Specialty Start Date End Date Treasure Johns NP [address] [address] PCP - General Family Medicine 03/02/23 Chelsie Enriquez MD [address] [place] [address] Consulting Physician Cardiology 11/13/20 documented as of this encounter
--- OUTSIDE RECORDS SUMMARY | 2024-06-14 21:29 | XMS_ITS | Encounter Summary ---
Author Organization [facility] Healthcare Address [address] [place] [address] Care Team Providers Care Finance Analyst Name Role Phone Chelsie Enriquez MD Unavailable Treasure Johns NP Primary Care Provider [phone] Reason for Visit * Auth/Cert (Routine) Specialty Diagnoses / Procedures Referred By Contac t Referred To Contact Diagnoses Lipoma of torso Cyst of skin Lipoma of torso [D17.1] Cyst of skin [L72.9] Procedures WA EXCISION TUMOR SOFT TISSUE BACK/FLANK SUBQ <3CM WA EXC B9 LESION MRGN XCP SK TG T/A/L 0.5 CM/< WA LAYR CLOS WND REST BODY <2.5 CM WA REPAIR INTERMEDIATE F/E/E/N/L&/MUC 2.5 CM/< EXCISION OF CYST RIGHT BACK WITH INTERMIDATE REPAIR, EXCISION OF LIPOMA ON LEFT BACK WITH COMPLEX REPAIR (MAC WITH LOCAL, 1% LIDO WITH EPI) Referral ID Status Reason Start Date Expiration Date Visits Re quested Visits Authorized [id number] 1 1 Encounter Details Date Type Department Care Team (Late st Contact Info) Description 05/19/2023 9:15 AM VISION THERAPIST - 05/19/2023 10:45 AM VISION THERAPIST Surgery [facility] Operating Room [address] [place] [address] Marleni Desai MD [address] [phone] [place] [address] EXCISION OF CYST RIGHT BACK WITH COMPLEX REPAIR, EXCISION OF LIPOMA ON LEFT BACK WITH COMPLEX REPAIR Surgery Details Date/Time Status Location OR Service Patient Class Case Cl ass Case Type Trauma Case? 05/19/2023 9:15 AM Posted [facility] OPERATING ROOM OR Plastics Outpatient Elective Panel 1 Procedure LRB Anes Op Region Wound Class Comments EXCISION OF CYST RIGHT BACK WITH COMPLEX REPAIR, EXCISION OF LIPOMA ON LEFT BACK WITH COMPLEX REPAIR Bilateral Monitor Anesthesia Care Back Class II - Clean Contaminated Surgeon Surgeon Role Service Panel Marleni Desai MD Primary Plastics 1 Special Needs MAC WITH LOCAL, 1% LIDO WITH EPI,05/04/2023 - kkm documented in this encounter Social History Tobacco [...] on file Legal Sex Male 8:13 PM VISION THERAPIST Gender Identity Not on file Sexual Orientation Not on file documented as of this encounter Last Filed Vital Signs Vital Sign Reading Time Taken Comments Blood Pressure 143/81 05/19/2023 7:52 AM VISION THERAPIST Pulse 80 05/19/2023 7:52 AM VISION THERAPIST Temperature 36.2 ??C (97.2 ??F) 05/19/2023 7:52 AM CS T Respiratory Rate 20 05/19/2023 7:52 AM VISION THERAPIST Oxygen Saturation 96% 05/19/2023 7:52 AM VISION THERAPIST Inhaled Oxygen Concentration - - Weight 142.5 kg (314 lb 2.5 oz) 05/19/2023 7:52 AM VISION THERAPIST Height 185.4 cm (6' 1 ) 05/19/2023 7:52 AM VISION THERAPIST Body Mass Index 41.45 05/19/2023 7:52 AM VISION THERAPIST documented in this encounter Discharge Instructions * Attachments The following attachments cannot be sent through Care Everywhere. * General Anesthesia (Discharge Care) (Northern Irish) * Cephalexin (By mouth) (Northern Irish) * Hydrocodone/Acetaminophen (By mouth) (Northern Irish) * Ondansetron (By mouth, Into the mouth) (Northern Irish) documented in this encounter Medications at Time [...] back. Marleni Desai MD 05/19/23 9:40 AM ON THERAPIST Source Note - Cipriano Jeffery MD - 05/18/2023 7:54 AM VISION THERAPIST Images from the original note were not [...] Informed Consent: Discussed plan with attending and DIRECTOR OF PRODUCT DEVELOPMENT. Anesthesia plan and risks discussed with patient. Consent and Attending signature: I and/or my designee have discussed the anesthesia plan, benefits, possible alternatives, parental presence at time of induction (if indicated), and clinically relevant risks that may include dental injury, unintentional awareness, and/or other complications. The patient and/or parent/legal guardian understand, and agree to proceed. All questions answered. ON THERAPIST ON THERAPIST documented in this encounter Miscellaneous Notes * [...] the right side. He was evaluated by telephone worker who diagnosed him with a lipoma and [...] over the previous marking. Dissection was carried downthrough subcutaneous tissue using cautery. Celia's fascia was divided and the mass in question wasidentified. This was consistent with lipoma. This was carefully dissected free from the surroundingsoft tissue. This traversed down to the deep muscles of his back was carefully dissected free in a subfascial but supra muscular plane. This was able to be completely dissected without issue and thenpassed off the field for permanent specimen. The [...] using voice recognition software without a human pulp drier. Itmay contain typographical, grammatical, and/or syntax errors. ON THERAPIST * Brief Op Note - Marleni Desai MD - 05/19/2023 10:18 AM VISION THERAPIST Operative Progress Note Surgical Team: Surgeon(s) and Role: * Marleni Desai MD - Primary Anesthesiologist: Cipriano Jeffery MD DIRECTOR OF PRODUCT DEVELOPMENT: Sofia Dominguez CRNA Pellet Machine Operator: Estelle Casanova RN Scrub: Heather Harrell LPN PHOTOENGRAVING ETCHER: Eda Pichardo RN DATE OF SURGERY : [...] 11:01 AM No Resident involved on case ON THERAPIST * Perioperative Nursing Note - Jeanette Cerda RN - 05/12/2023 4:33 PM CST Pre operative instructions reviewed with patient. He verbalized understanding. ON THERAPIST * Pre-Procedure Instructions - Jeanette Cerda RN - 05/12/2023 4:27 PM CST We are pleased that you and your doctor have chosen [facility] for your surgery. We hope that the [...] prior to surgery Use no make-up, nail ukrainian, lotions, oils or powders on your skin. [...] posted at the top of the page. ON THERAPIST documented in this encounter Plan of Treatment Not on file documented as of this encounter Procedures Procedure Name Priority Date/Time Associated Diagnosis Comments SURGICAL PATHOLOGY Routine 05/19/2023 11:21 AM VISION THERAPIST Lipoma of torso Cyst of skin POCT GLUCOSE DEVICE Routine 05/19/2023 10:55 AM VISION THERAPIST EXCISION CYST/LIPOMA/LESIO N 05/19/2023 9:50 AM VISION THERAPIST Lipoma of torso Cyst of skin Special Needs MAC WITH LOCAL, 1% LIDO WITH EPI,05/04/2023 - kkm ECG 12-LEAD STAT 05/19/2023 8:33 AM VISION THERAPIST POTASSIUM, WHOLE BLOOD Routine 05/19/2023 8:14 AM VISION THERAPIST POCT GLUCOSE DEVICE Routine 05/19/2023 8:07 AM VISION THERAPIST documented in this encounter Results * Surgical pathology (05/19/2023 11:21 AM VISION THERAPIST) Tissue (Cyst) 05/19/2023 10: 31 AM VISION THERAPIST Tissue (Cyst) 05/19/2023 10: 31 AM VISION THERAPIST Narrative PATHOLOGY [facility] ([place] - 05/21/2023 8:45 AM VISION THERAPIST EPIC results best viewed via link to PDF [facility] Department of Pathology [address] [place] [address] Note to Patients: This report may contain [...] Final Report Patient Name: ??EDIL FRY Address: ??[address] [place] [address], ??[place], [place] ??[address] Gender: ??M : ??1960 (Age: 62) Service: ??Surgery Location: ??[facility] Hospital #: ??[id number] Patient Type: ??[facility] Accession # ?[id number] Taken: ??05/19/2023 Received: ??05/19/2023 Accessioned: ??05/19/2023 Reported: [...] cm. ??Represented in B. German Coppola M.D., Ph.D./Steve Caraballo P.Srinivas. Seven.Srinivas. Jie Caraballo., P.A. REPORT IMAGES AND SCANNED DOCUMENTS, IF INCLUDED, ONLY VIEWABLE IN PDF VERSION OF REPORT The performance characteristics of some immunohistochemical stains, fluorescence in-situ hybridization tests and immunophenotyping by flow cytometry cited in this report (if any) were determined by the Surgical Pathology Department at [facility] as part of an ongoing water quality tester program and in compliance with [...] characteristics determined by the Surgical Pathology Department [facility]. ??It has not been cleared or approved by the U. S. Food and Drug Administration. Note for decalcified specimens: This assay has not been validated on decalcified tissues. Results should be interpreted with caution given the possibility of false negativity on decalcified specimens Marleni Desai MD LAB PATHOLOGY ORDERA BLES Final Result PATHOLOGY [facility] ([place]) [address] [place] [address] * (ABNORMAL) POCT glucose (05/19/2023 10:55 AM VISION THERAPIST) Glucose, POC 195(H) 71 - 98 mg/dL [facility] ([place]) Blood 05/19/2023 10:5 5 AM VISION THERAPIST 05/19/2023 10:55 AM VISION THERAPIST Marleni Desai MD LAB POCT ORDERABLES - DEVICE Final Result Performing Organization Address City/[facility]/ZIP Co de Phone Number [facility] ([place]) 1 [facility] Department [place] [address] * ECG 12 lead (05/19/2023 8:33 AM VISION THERAPIST) 05/19/2023 8:33 AM VISION THERAPIST Narrative [facility] - 05/19/2023 10:33 AM VISION THERAPIST Vent Rate: 80 bpm RR Interval: 750 msec WA Interval: 211 msec QRS Duration: 173 msec QT Interval: 460 msec QTC Interval: 495 msec P-R-T [place]: -37 - 139 - -25 degrees IMPRESSION: ELECTRONIC VENTRICULAR PACEMAKER ABNORMAL RHYTHM ECG Electronically Signed By: Fabian Meneses Marleni Desai MD ECG ORDERABLES Jessenia l Result [facility] * Potassium, whole blood (05/19/2023 8:14 AM VISION THERAPIST) Potassium, bld 4.8 3.3 - 4.9 mmol/L [facility] ([place]) Comment: Interpretive Data This method is not able to assess for hemolysis, which may falsely increase potassium concentrations. If further testing is needed to evaluate this result, consider in-laboratory plasma potassium. Current Interpretive Data was last revised on 2022. Blood 05/19/2023 8:14 AM VISION THERAPIST 05/19/2023 8:16 AM VISION THERAPIST Marleni Desai MD LAB BLOOD ORDERABLES Final Result Performing Organization Address [facility] Co de Phone Number [facility] ([place]) [address] [facility] [employer] [place] [address] * (ABNORMAL) POCT glucose (05/19/2023 8:07 AM VISION THERAPIST) Glucose, POC 153(H) 71 - 98 mg/dL [facility] ([place]) Blood 05/19/2023 8:07 AM VISION THERAPIST 05/19/2023 8:07 AM VISION THERAPIST Marleni Desai MD LAB POCT ORDERABLES - DEVICE Final Result Performing Organization Address City/[facility] Co de Phone Number [facility] ([place]) 1 [facility] Department [place] [address] documented in this encounter Visit Diagnoses Diagnosis Cyst of skin- Primary Sebaceous cyst Lipoma of torso Lipoma of torso Cyst of skin Sebaceous cyst documented in this encounter Admitting Diagnoses Diagnosis Cyst of skin Sebaceous cyst documented in this encounter Administered Medications Inactive Administered Medications - up to 3 most recent administrations Medication Order MAR Action Action Date Dose Rate Site acetaminophen (TYLENOL) tablet 1,000 mg 1,000 mg, oral, Once, On Thu05/19/23 at 0830, For 1 dose, Pre-Op, Indications: Pre-Emptive AnalgesiaIndications:Pre-Em ptive Analgesia Given 05/19/2023 8:05 AM VISION THERAPIST 1,000 mg celecoxib (CeleBREX) capsule 200 mg 200 mg, oral, Once, On Thu05/19/23 at 0830, For 1 dose, Pre-Op, Hold if history of kidney disease or gastric ulcer., Indications: Pre-Emptive AnalgesiaIndications:Pre-Em ptive Analgesia Given 05/19/2023 8:05 AM VISION THERAPIST 200 mg gabapentin (NEURONTIN) capsule 300 mg 300 mg, oral, Once, On Thu05/19/23 at 0830, For 1 dose, Pre-Op, Indications: Pre-Emptive AnalgesiaIndications:Pre-Em ptive Analgesia Given 05/19/2023 8:05 AM VISION THERAPIST 300 mg lidocaine-EPINEPHrine (XYLOCAINE with EPI) 1 %-1:200,000 preservative free injection As needed, Starting on Thu05/19/23 at 1030, Intra-Op, Indications: Administration of Local AnesthesiaIndications:Admin istration of Local Anesthesia Given 05/19/2023 10:30 AM VISION THERAPIST 30 mL Surgical Site sodium chloride 0.9% infusion 30 mL/hr, intravenous, Continuous, Starting on Thu05/19/23 at 0830, Pre-Op Restarted 05/19/2023 10:05 AM VISION THERAPIST New Bag 05/19/2023 8:06 AM VISION THERAPIST 30 mL/hr 30 mL/hr sodium chloride 0.9% irrigation As needed, Starting on Thu05/19/23 at 1030, Intra-Op Given 05/19/2023 10:30 AM VISION THERAPIST 500 mL Surgical Site documented in this encounter Discontinued Medications Medication [...] Recently Administered Medications Times are shown in VISION THERAPIST. Scheduled Medication Order 05/17/2023 05/18/2023 05/19/2023 acetaminophen [...] ative free injection 50 mcg 1 05/19/2023 naloxone (NARCAN) 0.4 mg/mL injection 0.04-0.4 mg 1 05/19/2023 sodium chloride 0.9% flush 0.5-20 mL 1 05/08 Diet Count Last Ordered Date First Orde red Date ADULT DISCHARGE DIET 1 05/19/2023 Nursing Count Last Ordered Date First Orde red Date DISCHARGE ACTIVITY 1 05/19/2023 DISCHARGE CALL PROVIDER 6 05/19/2023 DISCHARGE DRESSING 1 05/19/2023 Discharge Count Last Ordered Date First Orde red Date DISCHARGE PATIENT 1 05/19/2023 documented in this encounter Care Teams Finance Analyst Relationship Specialty Start Date End Date Treasure Johns NP [address] [address] PCP - General Family Medicine 03/02/23 Chelsie Enriquez MD [address] [place] [address] Consulting Physician Cardiology 11/13/20 documented as of this encounter
--- OUTSIDE RECORDS SUMMARY | 2024-06-14 21:29 | XMS_ITS | Encounter Summary ---
Author Organization [facility] Healthcare Address [address] [place] [address] Care Team Providers Care Predatory Animal Exterminator Name Role Phone No, Physician Primary Care Provider [phone] Chelsie Enriquez MD Unavailable Encounter Details Date Type Department Care Team (Latest Contact Info) Description 11/13/2020 7:55 AM CDT Anesthesia Event [facility] Electrophysiology Lab [address] [place] [address] [place] [address] [facility] [place] [address] Bruce Perez MD [address] [place] [address] Anesthesia Record Procedure Summary Procedure Name Responsible Anesthesiologist Anesthesia Start Time Anesthesia Stop Time INSERT LV LEAD W PACEMAKER (PPM) OR IMPLANTABLE CARDIOVERTER-DEFIBRIL LATOR (ICD) PLACEMENT (+) 54856 Brigido Grande MD 11/13/20 0755 11/13/20 1051 Events Date Time Event Comment 11/13/2020 0652 0755 An Start 0756 An Start Data 0800 Start Supplemental O2 0809 An Induction The patient was reevaluated immediately before moderate or deep sedation use and before anesthesia induction. 0813 Anesthesia Ready 0817 Quick Note [address] inserted into rt nare atraumatically 0905 an nando now 0905 Quick Note Patient coughed up thick mucus secretions, suctioned 0909 Quick Note 10 cm oral airw ay placed 1042 an stop data 1048 Handoff to RN I completed my handoff [...] the time of handoff: No value filed. 1051 An Stop Meds Name Total propofol 300 mg propofol 2,271.51 mg lidocaine 2 % 60 mg midazolam 2 mg fentaNYL 200 mcg ceFAZolin 2,000 mg Lactated Ringer's (LR) infusion 1,200 mL * Agents Name O2 * Blood No blood administrations on file. Lines, Drains, and Airways Type Details Placement Removal Peripheral IV Placement Date: 11/13/20; Placement Time: 622; Change Due: 11/17/20; Catheter Size: 20 G; Orientation: Left, Posterior; Location: Hand; Technique: Anatomical landmarks; Inserted by: rohan mccall RN; Insertion Attempts: 1; Patient Tolerance: Tolerated well; Removal Date: 11/13/20; Removal Time: 1355 11/13/20 0623 by David Mccall RN 11/13/20 1355 by Marie Jama RN Peripheral IV Placement Date: 11/13/20; Placement Time: 08; Catheter Size: 18 G; Orientation: Right, Posterior, Lower; Location: Arm; Site Prep: Chlorhexidine; Technique: Anatomical landmarks; Inserted by: Marciano DAVIS; Insertion Attempts: 1; Patient Tolerance: Tolerated well; Removal Date: 11/13/20; Removal Time: 1355 11/13/20 0815 by Duncan Tariq RN 11/13/20 1355 by Marie Jama RN RETIRED Surgical Site 11/13/20; 1042; Le ft, Anterior, Lateral, Upper; Chest; Pacemaker pocket incision; 05/10/24 (Retired LDA, Removed/Completed by Zolpy with LDA Utility); 1213 (Retired LDA, Removed/Completed by Zolpy with LDA Utility) 11/13/20 1042 by Duncan [...] on file 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 Procedure Summary Date: 11/13/20 Room / Location: EP LAB 3 / EP LAB Anesthesia Start: 0755 Anesthesia Stop: 105 Procedure: upgrade to biv ppm - INSERT LV LEAD W PACEMAKER (PPM) OR IMPLANTABLE CARDIOVERTER-DEFIBRILLATOR (ICD) PLACEMENT (+) 59991 (N/A ) Diagnosis: Cardiomyopathy (CMS/HCC) (Cardiomyopathy (CMS/HCC) [I42.9]) Providers: Chelsie Enriquez MD Responsible Provider: Brigido Grande MD Anesthesia Type: general/TIVA ASA Status: Not recorded Anesthesia Type: general/TIVA Last vitals Blood Pressure (Abnormal) 178/102 Pulse 84 Temperature 36.8 ??C (98.2 ??F) (Oral) [id number] Oxygen Saturation 97% Anesthesia Post Evaluation Patient location during evaluation: PACU Patient participation: complete - patient participated Level of consciousness: fully awake Pain score: 1 Pain management: adequate Airway patency: adequate Evidence of recall: no Cardiovascular status: acceptable Respiratory status: acceptable Hydration status: acceptable Pt is: normothermic Nausea/Vomiting status: none No complications documented. * Anesthesia Preprocedure Evaluation - Breanne Lindsay CRNA - 11/12/2020 10:04 AM CDT Anesthesia Evaluation Joselito Lamar Jr. is a 60 y.o. male Procedure(s): upgrade to biv ppm - INSERT LV LEAD W PACEMAKER (PPM) OR IMPLANTABLE CARDIOVERTER-DEFIBRILLATOR (ICD) PLACEMENT (+) 35510 Pre-Op Diagnosis Codes: * Cardiomyopathy (CMS/HCC) [I42.9] HISTORY Past Medical History Information obtained from: patient and chart. Neurological + Neuromuscular disease - Parkinson's disease. Cardiovascular + Hypertension + Hyperlipidemia + CAD + Drug-eluting stent(s) - Prior stent(s) date: 2000. + Systolic or diastolic dysfunction w/o CHF Diastolic dysfunction w/o CHF. Diastolic function: unspecified dysfunction LVEF: 50-60%. + Atrial fibrillation/flutter - Current Rhythm: atrial fibrillation. Respiratory Pertinent negatives: non-smoker Hepatic / Heme Hepatic/Heme system: negative Gastrointestinal GI system: negative Renal / + Nephrolithiasis Endocrine / Other + Diabetes mellitus - Diabetes type 2. Diabetic complications: neuropathy. + Obesity (BMI >30) Patient Active Problem List Diagnosis ??? Cardiomyopathy (CMS/HCC) Past Medical History: Diagnosis Date ??? Arrhythmia A Flutter ??? CAD (coronary artery disease) ??? Cellulitis right lower leg ??? Diabetic neuropathy (CMS/HCC) ??? Hypertension ??? Kidney stone ??? Parkinson's disease (CMS/HCC) ??? Type 2 diabetes mellitus (CMS/HCC) ??? Wound, open, foot 05/2020 ball of right foot Past Surgical History: Procedure Laterality Date ??? ANKLE SURGERY leg/ankle ??? CARDIAC PACEMAKER PLACEMENT ??? CARDIAC STENT PLACEMENT ??? CARPAL TUNNEL RELEASE ??? ELBOW SURGERY ??? VASECTOMY Not on File No medications on file. No current facility-administered medications for this encounter. No current outpatient medications on file. Social History Tobacco Use Smoking Status Not on file Substance and Sexual Activity Alcohol Use Not on file Substance and Sexual Activity Drug Use Not on file No family history on file. There were no vitals filed for this visit. PT: 10/23/2020: 14.2 SECONDS INR: 10/23/2020: 1.09 APTT: 10/23/2020: 31 SECONDS Hgb A1C: No results found for requested labs within last 720 hours. CBC RBC: 10/23/2020: 4.04 x10 6/ul* RDW: 10/23/2020: 14.1 % MCHC: 10/23/2020: 32.4 g/dl MCH: 10/23/2020: 32.9 pg MCV: 10/23/2020: 101.7 fl* Hct: 10/23/2020: 41.1 % Hgb: 10/23/2020: 13.3 g/dL WBC: 10/23/2020: 8.5 X10 3/ul MPV: 10/23/2020: 10.2 fl Platelets: 10/23/2020: 284 x10 3/ul RDW CV: No results found for requested labs within last 720 hours. RDW Sd: No results found for requested labs within last 720 hours. BMP Glucose: 10/23/2020: 145 mg/dL* Calcium: 10/23/2020: 9.0 mg/dL Sodium: 10/23/2020: 137 mmol/L Potassium: 10/23/2020: 4.5 mmol/L CO2: 10/23/2020: 24 mmol/L Chloride: 10/23/2020: 102 mmol/L BUN: No results found for requested labs within last 720 hours. Creatinine: 10/23/2020: 1.1 mg/dL DOS Physical Exam Medical history, medications, and allergies reviewed. Attestation: I endorse the findings of the anesthesia pre-evaluation assessment dated: 11/13/2020. Airway Exam: Mallampati: II Cervical ROM: FROM TM distance: >4 Jaw ROM: full Cardiovascular Exam: Rate: regular Rhythm: regular Pulmonary Exam: LCTA, bilat Dental Exam: Upper dentures Current state: Patient's current state is cooperative. Anesthesia Plan ASA 3 Planned anesthesia: General/TIVA Induction: Induction: intravenous. Postoperative Plan: No plan for postoperative opioid use. No postoperative mechanical ventilation intended. Patient's planned disposition post procedure is 23 hour admit. No trial extubation planned. Informed Consent: Discussed plan with attending and AA. Consent and Attending signature: I and/or my designee have discussed the anesthesia plan, benefits, possible alternatives, parental presence at time of induction (if indicated), and clinically relevant risks that may include dental injury, unintentional awareness, and/or other complications. The patient and/or parent/legal guardian understand, and agree to proceed. All questions answered. documented in this encounter Plan of Treatment Not on file documented as of this encounter Visit Diagnoses Not on filedocumented in this encounter Administered Medications Inactive Administered Medications - up to 3 most recent administrations Medication Order MAR Action Action Date Dose Rate Site ceFAZolin (ANCEF) injection intravenous, Administer over 3 Minutes, As needed, Starting on Thu11/13/20 at 0818, Anesthesia Intra-op Given 11/13/2020 8:18 AM CDT 2,000 mg fentaNYL (SUBLIMAZE) preservative free injection intravenous, As needed, Starting on Thu11/13/20 at 0809, Anesthesia Intra-op Given 11/13/2020 9:18 AM CDT 25 mcg Given 11/13/2020 8:51 AM CDT 25 mcg Given 11/13/2020 8:36 AM CDT 25 mcg Lactated Ringer's (LR) infusion 30 mL/hr, intravenous, Continuous, Starting on Thu11/13/20 at 0715 New Bag 11/13/2020 7:56 AM CDT lidocaine (XYLOCAINE) 20 mg/mL (2 %) preservative free injection intravenous, As needed, Starting on Thu11/13/20 at 0809, Anesthesia Intra-op Given 11/13/2020 8:09 AM CDT 60 mg midazolam (VERSED) 1 mg/mL preservative free injection intravenous, Administer over 2 Minutes, As needed, Starting on Thu11/13/20 at 0802, Anesthesia Intra-op Given 11/13/2020 8:02 AM CDT 2 mg propofoL (DIPRIVAN) 10 mg/mL IV intravenous, As needed, Starting on Thu11/13/20 at 0809, Anesthesia Intra-op Given 11/13/2020 10:21 AM CDT 20 mg Given 11/13/2020 10:05 AM CDT 30 mg Given 11/13/2020 9:08 AM CDT 40 mg propofoL (DIPRIVAN) 10 mg/mL IV intravenous, Continuous PRN, Starting on Thu11/13/20 at 0809, Anesthesia Intra-op Rate/Dose Change 11/13/2020 9:12 AM CDT 155 mcg/kg/min 109.089 mL/hr Rate/Dose Change 11/13/2020 9:09 AM CDT 145 mcg/kg/min 102 .051 mL/hr Rate/Dose Change 11/13/2020 9:06 AM CDT 135 mcg/kg/min 95. 013 mL/hr documented in this encounter Care Teams Predatory Animal Exterminator Relationship Specialty Start Date End Date No, Physician PCP - General 11/13/20 03/01/23 Chelsie Enriquez MD [address] [place] [address] Consulting Physician Cardiology 11/13/20 documented as of this encounter
--- OUTSIDE RECORDS SUMMARY | 2024-06-14 21:30 | XMS_ITS | Encounter Summary ---
Author Organization [facility] Address [address] [place] [address] Care Team Providers Care Microsoft Windows Engineer Name Role Phone No, Physician Primary Care Provider [phone] Encounter Details Date Type Department Care Team (Late st Contact Info) Description 10/30/2018 Orders Only [facility] [address] [place] [address] ProviderGrace MD [address] [place] [address] Social History Tobacco Use Types Packs/Day Years Used Date Smoking Tobacco: Never Assessed Sex and Gender Information Value Date Recorded Sex Assigned at Not on file 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 Gender Identity Not on file Sexual Orientation Not on file documented as of this encounter Plan of Treatment Not on file documented as of this encounter Procedures Procedure Name Priority Date/Time Associated Diagnosis Comments LIPID PANEL Routine 06/30/2018 documented in this encounter Results * Lipid panel (06/30/2018) SCRIBED Cholesterol, Total 139 na - na EXTERNAL LAB SCRIBED HDL 60 na - na EXTERNAL LAB SCRIBED LDL 64 na - na EXTERNAL LAB SCRIBED Triglycerides 37 na - na EXTERNAL LAB Blood specimen (specimen) us Historical Provider LAB BLOOD ORDERABLES Edit ed Result - Final EXTERNAL LAB documented in this encounter Visit Diagnoses Not on filedocumented in this encounter Care Teams Microsoft Windows Engineer Relationship Specialty Start Date End Date No, Physician PCP - General 06/30/18 10/28/20 documented as of this encounter
--- OUTSIDE RECORDS SUMMARY | 2024-06-14 21:30 | XMS_ITS | Encounter Summary ---
Author Organization [facility] Healthcare Address [address] [place] [address] Care Team Providers Care Dx Board Operator Name Role Phone No, Physician Primary Care Provider [phone] Encounter Details Date Type Department Care Team (Late st Contact Info) Description 10/23/2020 8:07 AM CDT - 10/23/2020 9:49 AM CDT Emergency [facility] Emergency Department [address] [place], [place] [id number] Unknown, Juan Holguin, DO [address] [facility] EMERGENCY DEPT [place], [place] [id number] Discharge Disposition: Discharge to home or self care Social History Tobacco Use Types Packs/Day Years Used Date Smoking Tobacco: Never Assessed Sex and Gender Information Value Date Recorded Sex Assigned at Not on file 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 Gender Identity Not on file Sexual Orientation Not on file documented as of this encounter Last Filed Vital Signs Vital Sign Reading Time Taken Comments Blood Pressure 150/98 10/23/2020 8:12 AM CDT Pulse 86 10/23/2020 8:12 AM CDT Temperature 36.5 ??C (97.7 ??F) 10/23/2020 8:12 AM CD T Respiratory Rate - - Oxygen Saturation 97% 10/23/2020 8:12 AM CDT Inhaled Oxygen Concentration - - Weight 119.2 kg (262 lb 12.7 oz) 10/23/2020 8:12 AM CDT Height 185.4 cm (6' 1 ) 10/23/2020 8:12 AM CDT Body Mass Index 34.67 10/23/2020 8:12 AM CDT documented in this encounter Medications at Time [...] Take 20 mg by mouth daily 3 metFORMIN (GLUCOPHAGE) 1,000 mg tablet Take 1,000 mg by mouth daily with breakfast 1 rivaroxaban (XARELTO) 15 mg tablet Take 15 mg by mouth daily 1 rivaroxaban (XARELTO) 15 mg tablet Take [...] Procedure Name Priority Date/Time Associated Diagnosis Comments SCAN - LABS 10/24/2020 12:00 AM CDT SEPSIS LACTATE Routine 10/23/2020 8:33 AM CDT CBC WITH AUTO DIFFERENTIAL Routine 10/23/2020 8:32 AM CDT APTT Routine 10/23/2020 8:32 AM CDT PROTIME-INR Routine 10/23/2020 8:32 AM CDT COMPREHENSIVE METABOLIC PANEL Routine 10/23/2020 8:31 AM CDT XR FOOT RIGHT 3 OR MORE VIEWS 10/23/2020 8:15 AM CDT documented in this encounter Results * SCAN - LABS (10/24/2020 12:00 AM CDT) Narrative 10/24/2020 12:00 AM CDT Ordered by an unspecified provider. Historical Provider MD Final Res ult * Sepsis Lactate (10/23/2020 8:33 AM CDT) Sepsis lactate 1.7 mmol/L [facility] Comment: Lactate Reference Range: 0.5 - 2.2 mmol/L 10/23/2020 8:33 AM CDT 10/23/2020 8:38 AM CDT Narrative Resulting Agency Comment ER Juan Saldana DO LAB BLOOD ORDERABLES Final Result [address] [phone] * aPTT (10/23/2020 8:32 AM CDT) Pathologist [facility] APTT 31 23 - 38 SECONDS [facility] Comment: New reference ranges in use 03-07-2020. 10/23/2020 8:32 AM CDT 10/23/2020 8:38 AM CDT Narrative Resulting Agency Comment ER Juan Saldana DO LAB BLOOD ORDERABLES Final Result Performing Organization Address [facility] de Phone Number [address] [phone] * Protime-INR (10/23/2020 8:32 AM CDT) [facility] PT 14.2 12.0 - 14.6 SECONDS [facility] Comment: New reference ranges in use 10-12-2020. INR 1.09 [facility] Comment: Recommended Therapeutic range for Oral Anticoagulant Therapy No anti-coagulation therapy ? Normal Range: ?0.8-1.4 Anti-coagulation therapy ? Low intensity therapy ?2.0-3.0 ? High intensity therapy ?? 2.5-3.5 Critical Value ? Greater than or equal to 5.0 Patients should be monitored for serious bleeding. 10/23/2020 8:32 AM CDT 10/23/2020 8:38 AM CDT Narrative Resulting Agency Comment ER Juan Saldana DO LAB BLOOD ORDERABLES Final Result Performing Organization Address [facility] de Phone Number [address] [phone] * (ABNORMAL) CBC with auto differential (10/23/2020 8:32 AM CDT) [facility] WBC 8.5 3.8 - 9.9 X10 3/ul [facility] RBC 4.04(L) 4.30 - 5.80 x10 6/ul [facility] Hemoglobin 13.3 13.0 - 17.5 g/dL [facility] Hct 41.1 38.9 - 50.3 % [facility] MCV 101.7(H) 81.3 - 96.4 fl [facility] MCH 32.9 27.1 - 33.3 pg [facility] MCHC 32.4 32.3 - 35.7 g/dl [facility] RDW 14.1 11.1 - 14.9 % [facility] Plt Count 284 150 - 400 x10 3/ul [facility] MPV 10.2 9.1 - 12.3 fl [facility] Neut % 71.3 % [facility] Immature Gran % 0.4 % [facility] Lymph % 19.2 % [facility] Amelia % 5.8 % [facility] Eos % 2.1 % [facility] AUTO BASO % 1.2 % [facility] NEUTROPHIL ABS # 6.0 1.7 - 6.5 x10 3/ul [facility] Immature Gran # 0.0 0.0 - 0.1 x10 3/ul [facility] Absolute Lymphs (auto) 1.6 0.8 - 3.3 x10 3/ul [facility] Absolute Monos (auto) 0.5 0.2 - 0.8 x10 3/ul [facility] Absolute Eos (auto) 0.2 0.0 - 0.5 x10 3/ul [facility] BASOPHIL ABS # 0.1 0.0 - 0.1 x10 3/ul [facility] Nucleat RBC Rel Count 0.0 #/100WBC [facility] NRBC abs 0.00 0.00 - 0.01 x10 3/ul [facility] Absolute Neutrophils 6,000 200 - 8,000 /ul [facility] 10/23/2020 8:32 AM CDT 10/23/2020 8:38 AM CDT Narrative Resulting Agency Comment ER us Juan Saldana DO LAB BLOOD ORDERABLES Final Result [facility] [address] [place] [address], [facility] [phone] * (ABNORMAL) Comprehensive metabolic panel (10/23/2020 8:31 AM CDT) Sodium 137 135 - 145 mmol/L [facility] Potassium 4.5 3.3 - 5.1 mmol/L [facility] Comment: HEMOLYZED: Hemolysis interferes with the above test. Chloride 102 96 - 108 mmol/L [facility] Carbon Dioxide 24 22 - 32 mmol/L [facility] Anion Gap 11 7 - 16 [facility] Glucose 145(H) 70 - 100 mg/dL [facility] BUN 15 8 - 25 mg/dL [facility] Creatinine 1.1 0.5 - 1.3 mg/dL [facility] Comment: The specimen is icteric. A high bilirubin level is known to cause a false decrease in measured creatinine. NOTE: Estimated GFR (Cockroft-Gault) will NOT be calculated unless patient Height and Weight were entered. Also, Kidney Disease Stage (GFR) and Estimated GFR (Cockroft-Gault) will NOT be calculated if Creatinine result is <0.2. Kidney Disease Stage 72 mL/MIN [facility] Comment: NOTE; ??The GFR is an estimated value using the creatinine, sex, age, and race of the patient. THE Estimated Kidney Disease GFR is validated for AGES 18-70 YEARS STAGE ?mL/Min ?DESCRIPTION ??1 ?90 mL/min or more ?Normal or elevated GFR ??2 ? 60-89 mL/min ?Mildly decreased GFR ??3 ? 30-59 mL/min ?Moderately decreased GFR ??4 ? 15-29 mL/min ?Severely decreased GFR ??5 ? <15 mL/min ? Kidney failure or on dialysis Est GFR (Cockcroft-G) 94 ml/MIN [facility] Comment: Estimated GFR(Cockroft-Gault)is used to calculate patient medication dosage Calcium 9.0 8.6 - 10.3 mg/dL [facility] Total Protein 8.2 6.4 - 8.3 g/dL [facility] Albumin 3.7 3.5 - 5.0 g/dL [facility] Globulin 4.5(H) 2.3 - 3.5 gm/dL [facility] Albumin/Globulin Ratio 0.8(L) 1.1 - 1.8 [facility] Total Bilirubin 2.5(H) 0.0 - 1.2 mg/dL [facility] AST 27 0 - 40 U/L [facility] Comment: HEMOLYZED: Hemolysis interferes with the above test. ALT 18 0 - 41 U/L [facility] Comment: HEMOLYZED: Hemolysis interferes with the above test. Alkaline Phosphatase 134(H) 40 - 129 U/L [facility] 10/23/2020 8:31 AM CDT 10/23/2020 8:38 AM CDT Narrative Resulting Agency Comment ER us Juan Saldana DO LAB BLOOD ORDERABLES Final Result Performing Organization Address City/State/[facility] Co de Phone Number [facility] [address] [phone] * XR Foot Right 3 or More Views (10/23/2020 8:15 AM CDT) Anatomical Region Laterality Modality Lower Extremities, Foot Right Radiogra phic Imaging 10/23/2020 8:48 AM CDT Narrative 10/23/2020 8:51 AM CDT Patient Name: EDIL FRY JR ?Ordering Dr: Juan Saldana DO ?? D.O.B: 1960 ? Exam Date: 10/23/20 ?? 0815 ?? Age: 60 ?Sex: Male ? MR#: [id number] ?? Loc: ? RADIOLOGY REPORT ?? Order #[id number] ?? Radiology ? Foot RT 3 View Min ? Signed ? EXAM DESCRIPTION: ?Foot RT 3 View Min ? REASON FOR STUDY: ?? Laceration to plantar surface of the 1st metatarsal 1 ?? month ago. ??Wound not healing. ??History of diabetes. ? TECHNIQUE: ?? AP, lateral and oblique radiographic views acquired of the right ?? foot. ? COMPARISON: ?? None available ? FINDINGS: ? BONES/JOINTS: ??No acute fractures identified. 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 ??Mild osteoarthritis of the 1st metatarsophalangeal ?? joint. ??No osteolytic abnormality. ??Moderate midfoot osteoarthritis. ? SOFT TISSUES: ??Soft tissue ulcer along the plantar surface of the foot at the ?? 1st metatarsophalangeal joint level. ??No radiopaque foreign body is ?? identified. ??Atherosclerotic calcification of the visualized vasculature. ? OTHER: ??No other significant finding. ? IMPRESSION: ? 1. ??No acute osseous abnormality. ??No osteolytic abnormality. ? 2. ??Soft tissue ulcer along the plantar surface of the foot at the level of ?? the 1st metatarsophalangeal joint. ??No radiopaque foreign body is identified. ? THIS IS AN ELECTRONICALLY VERIFIED FINAL REPORT ?? 10/23/2020 8:51 AM - Electronically signed by Dylan Hale M.D. ?? Dylan Hale M.D. ? LB: LB ?? D: ??10/23/2020 8:51 AM ?? T: ??10/23/2020 8:51 AM ? Report ID: [id number] ?? Reading Location: ??[id number] ? REPORT ELECTRONICALLY SIGNED IN OTHER VENDOR SYSTEM ?? Resulting Agency Comment P Procedure Note Dylan Hale MD - 10/23/2020 Patient Name: JEFFFAHADSTACEY HINTONDESIREE Laird Dr: Juan Saldana DO D.O.B: 1960 Exam Date: 10/23/20814 Age: 60 Sex: Male MR#: [id number] Loc: RADIOLOGY REPORT Order #[id number] Radiology Foot RT 3 View Min Signed EXAM DESCRIPTION: Foot RT 3 View Min REASON FOR STUDY: Laceration to plantar surface of the 1st metatarsal 1 month ago. Wound not healing. History of diabetes. TECHNIQUE: AP, lateral and oblique radiographic views acquired of theright foot. COMPARISON: None available FINDINGS: BONES/JOINTS: No acute fractures identified. Mild diffuseinterphalangeal joint osteoarthritis. Mild osteoarthritis of the 1st metatarsophalangeal joint. No osteolytic abnormality. Moderate midfoot osteoarthritis. SOFT TISSUES: Soft tissue ulcer along the plantar surface of the foot atthe 1st metatarsophalangeal joint level. No radiopaque foreign body is identified. Atherosclerotic calcification of the visualized vasculature. OTHER: No other significant finding. IMPRESSION: 1. No acute osseous abnormality. No osteolytic abnormality. 2. Soft tissue ulcer along the plantar surface of the foot at the levelof the 1st metatarsophalangeal joint. No radiopaque foreign body isidentified. THIS IS AN ELECTRONICALLY VERIFIED FINAL REPORT 10/23/2020 8:51 AM - Electronically signed by Dylan Hale M.D. LB: ADAIR Report ID: [id number] Reading Location: [place] [address] REPORT ELECTRONICALLY SIGNED IN OTHER VENDOR SYSTEM Juan Saldana DO IMG XR PROCEDURES Final Res ult documented in this encounter Visit Diagnoses Not on filedocumented in this encounter Care Teams Dx Board Operator Relationship Specialty Start Date End Date No, Physician PCP - General 06/30/18 10/28/20 documented as of this encounter
--- OUTSIDE RECORDS SUMMARY | 2024-06-14 21:30 | XMS_ITS | Encounter Summary ---
Author Organization [facility] Address [address] [place] [address] Care Team Providers Care Wheel Alignment Mechanic Name Role Phone No, Physician Primary Care Provider Encounter Details Date Type Department Care Team (Late st Contact Info) Description 10/06/2020 Orders Only [facility] Cardiology [address] [facility] [address] [place] [address] Vu Guerrero MD [address] [facility] [address] [place] [address] Social History Tobacco Use Types Packs/Day Years Used Date Smoking Tobacco: Never Assessed Sex and Gender Information Value Date Recorded Sex Assigned at Not on file 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 Gender Identity Not on file Sexual Orientation Not on file documented as of this encounter Plan of Treatment Not on file documented as of this encounter Procedures Procedure Name Priority Date/Time Associated Diagnosis Comments CARDIOLOGY DOCUMENT SCAN Routine 10/06/2020 documented in this encounter Results * SCAN - CARDIOLOGY (10/06/2020) Anatomical Region Laterality Modality Other us Vu Guerrero MD [facility] CARDIAC SERVICES PROC EDURES Final Result documented in this encounter Visit Diagnoses Not on filedocumented in this encounter Care Teams Wheel Alignment Mechanic Relationship Specialty Start Date End Date No, Physician PCP - General 06/30/18 10/28/20 documented as of this encounter
--- OUTSIDE RECORDS SUMMARY | 2024-06-14 21:30 | XMS_ITS | Encounter Summary ---
Author Organization [facility] Address [address] [place] [address] Care Team Providers Care Jewelry Bearing Maker Name Role Phone No, Physician Primary Care Provider [phone] Reason for Referral * Cardiology (Routine) - Closed Specialty Diagnoses / Procedures Referred By Contac t Referred To Contact Diagnoses Atrial flutter (CMS/HCC) (HCC) Procedures Transthoracic Echo Complete W Doppler/CF Eddie Diaz MD Phone: tel: fax: Referral ID Status Reason Start Date Expiration Date Visits Re quested Visits Authorized [id number] Closed 07/02/2018 01/11/2020 1 1 O VIDEO MECHANIC Encounter Details Date Type Department Care Team (Late st Contact Info) Description 07/02/2018 Orders Only [facility] [address] [place] [phone] Grace Mcclure MD [address] [place] [address] Social History Tobacco Use Types Packs/Day Years Used Date Smoking Tobacco: Never Assessed Sex and Gender Information Value Date Recorded Sex Assigned at Not on file 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 Gender Identity Not on file Sexual Orientation Not on file documented as of this encounter Plan of Treatment Not on file documented as of this encounter Procedures Procedure Name Priority Date/Time Associated Diagnosis Comments TRANSTHORACIC ECHO (TTE) COM PLETE W DOPPLER/CF Routine 06/29/2018 documented in this encounter Results * Transthoracic Echo Complete W Doppler/CF (06/29/2018) Anatomical Region Laterality Modality Ultrasound us Historical Provider CV ECHO PROCEDURES Final Result documented in this encounter Visit Diagnoses Not on filedocumented in this encounter Care Teams Jewelry Bearing Maker Relationship Specialty Start Date End Date No, Physician PCP - General 06/30/18 10/28/20 documented as of this encounter
--- OUTSIDE RECORDS SUMMARY | 2024-06-14 21:31 | XMS_ITS | Patient Health Record ---
Author Organization [facility] Address [address] [place] [address] Care Team Providers Care Wheel Cutter Name Role Phone Yane Chaudhari Primary Care Provider [phone] Reason For Referral No Information Medications Medication SIG (Take, Route, Frequency, Duration) Notes Start Date End Date Status Magnesium Oxide 400 MG 1 tablet as neede d Orally twice a day Active Vivitrol 380 MG 4 ml Intramuscular e very 28 days for 28 days 10/01/2018 Active Atorvastatin Calcium 20 MG 1 tablet Orally Once a day for 30 day(s) Active dilTIAZem HCl 60 MG as directed Orally Active Tamsulosin HCl 0.4 MG as directed Orally Active hydrOXYzine Pamoate 50 MG 1 capsule as needed Orally every 6 hrs Active Xarelto 15 MG 1 tablet with food Orally Once a day Active metFORMIN HCl 1000 MG 1 tablet with a me al Orally Once a day Active Lipitor 20 MG 1 tablet Orally Once a day Not-Taking Aspir-Low 81 MG 1 tablet Orally Once a day Active Montelukast Sodium 10 MG 1 tablet Orally Once a day for 30 day(s) Active Folic Acid 1 MG 1 tablet Orally Once a day Active Cetirizine HCl 10 MG 1 tablet Orally Onc e a day for 30 day(s) Active B-100 B-Complex - Orally Ac tive Multivitamin Adults - Orally Active Social History Tobacco Use: Social History Observation Description Date Details (start date - stop date) Current Smoker NA - NA Dont use, Tobacco Use/Smoking Question Answer Notes Are you a current every day smoker PRAPARE Question Answer Notes Date Completed/Updated: 09/22/2018 What is your current housing situation? I have h ousing Are you worried about losing your housing? No What is the highest level of school that you have finished? High school diploma or GED What is your current work situation? Unemployed and seeking work In the past year, have you o r any family members you live with been unable to get any of the following when it was really needed? Check all that apply I do not have problems meeting my needs Has lack of transportation k ept you from medical appointments, meetings, work or from getting things needed for daily living? No How often do you see or talk to people that you care about and feel close to? (For example: talking to friends on the phone, visiting friends or family, going to nondenominational or club meetings) 1 or 2 times a week How stressed are you? Stress is when someone feels tense, nervous, anxious, or can\t sleep at night because their mind is troubled Quite a bit In the past year have you sp ent more than 2 nights in a row in a halfway, chcf, custodial center, or juvenile correctional facility? No Are you a refugee? No What country are you from? [place] Do you feel physically and e motionally safe where you currently live? Yes In the past year, have you b een afraid of your partner or ex-partner? No PRAPARE Score: 7 Section Notes: Problems Problem Type SNOMED Code ICD Code Onset Dates Problem Status W/U Status Risk Notes Problem 03651184 Tobacco dependence (F17.200) Active confirmed Problem Alcohol abuse (30922359) Alcohol abuse (F10.10) Active confirmed Problem Diabetes mellitus without complication (732015292) Diabetes (E11.9) Active confirmed Problem Bradycardia (89192669) Bradycardia (R00.1) Active confirmed Problem Disorder caused by alcohol (disorder) (006272805) Alcohol use disorder (F10.99) Active confirmed Problem [id number] Obesity (BMI 30.0-34.9) (E66.9) Active confirmed Problem High cholesterol (26852937) High cholesterol (E78.00) Active confirmed Plan Of Treatment Future Test Test Name Order Date Hepatic Function Panel (7)* 03/17/2019 Insurance Providers Payer Name Payer Address Payer Phone Subscriber Number Group Number Insured Name Patient Relationship to Insured Coverage Start Date Coverage End Date [facility] Attn Claims Department [address] [place] [address] [phone] [id number] Joselito Lamar Self - patient is the insured 9 Medications Administered Medication Instructions Date of Administration Dosage Notes Vivitrol 10/01/2018 380 mg Patient tolera mel well. sample given Vivitrol 10/28/2018 380 mg Cotton Classer: [employer] Patient tolerated well. Vivitrol 11/25/2018 380 mg Cotton Classer: alkermes Pt tolerated well. He denies any questions or concerns. Vivitrol 12/23/2018 380 mg Patient tolera mel well. Vivitrol 01/20/2019 380 mg Exp Jan 2021 M anufact by [employer] pt heraclio well. Vivitrol 02/17/2019 380 mg Exp Nov 2020 m anufact by [employer] pt heraclio well. Vivitrol 03/18/2019 380 mg Cotton Classer A lkermes. Pt tolerated well. Voiced no questions or concerns at present time. Vivitrol 04/15/2019 380 mg Cotton Classer-Alkermes Pt tolerated injection well. No questions or conerns verbalized. Vivitrol 05/13/2019 380 mg Cotton Classer A lkermes. Pt tolerated well. Voiced no questions or concerns at present time. Medical (General) History Medical History History ICD Code Bradycardia High cholesterol Alcohol abuse Diabetes mellitus Surgical History Surgery Date(Month/Year) sun spots removed (removal of basal cell carcinoma) 02/2019
== END 2024-06-07 17:20 | disposition home or self-care (01) ==
PROVIDERS: Student in an Organized Health Care Education/Training Program; Emergency Provider Emergency Medicine; PCP Family Medicine
DX: R56.9 Unspecified convulsions (principal); F41.8 Other specified anxiety disorders; J45.909 Unspecified asthma, uncomplicated; I25.10 Atherosclerotic heart disease of native coronary artery without angina pectoris; I48.20 Chronic atrial fibrillation, unspecified; E11.42 Type 2 diabetes mellitus with diabetic polyneuropathy; E78.5 Hyperlipidemia, unspecified; E11.9 Type 2 diabetes mellitus without complications; Z86.73 Personal history of transient ischemic attack (TIA), and cerebral infarction without residual deficits; G20.A1 Parkinson's disease without dyskinesia, without mention of fluctuations
CPT/HCPCS: 36415; 70450; 71046; 80053; 85025; 93005; 99284; A9270; J7040

== ENCOUNTER 2024-08-04 07:40 | Outpatient (RCR) | payer MEDICARE, MEDICAID, SELFPAY ==
[2024-06-07 10:12] LABS: Glucose Point of Care 79 mg/dl (65-105)
[2024-06-07 10:41] VITALS: BMI 30.4
--- NOTE | 2024-06-07 12:53 | P.PN_ITS ---
Progress Note: A&P Assessment and Plan (1) Diabetic foot ulcer: Code(s): E11.621 - Type 2 diabetes mellitus with foot ulcer; L97.509 - Non-pressure chronic ulcer of other part of unspecified foot with unspecified severity Status: Acute Assessment and Plan: The left heel ulcer continues to be clean without evidence of cellulitis. There is good granulation tissue at the base with a couple areas of hypergra nulation. Contraction at the edges is good. No nonviable tissue was noted. We will go ahead and stop the silver gel and go ahead use and more absorbent dressing like calcium alginate to apply to the wounds there is no depth. Continue to have a dry dressing and wear a postoperative shoe. He can have weight-bearing on the left forefoot but minimize any weight on the left heel for transfers. (2) S/P BKA (below knee amputation): Code(s): Z89.519 - Acquired absence of unspecified leg below knee Status: Acute Assessment and Plan: The right below-knee amputation stump is healing well. There is no disruption of the suture line. The muscular cutaneous flap is well vascularized and healing well. There is no ischemia of the flap. incision is completely intact. Sutures were removed today without difficulty. Continue to use the [facility] knee immobilizer so that he does not contract at the right knee. Continue to work with therapy for flexion and extension of the right knee. Continue to work with therapy for learning transfers with sliding board to wheelchair. I encouraged him continue working with therapy and work on his transfers. If he can do transfers then he can get a stump data integrity analyst in about 4 weeks and then hopefully after that be fitted for a right below-knee prosthesis. Subjective Date/time seen: 06/07/24 12:53 Interval history: Patient is here to see me in the [facility] today. He has not been seen since his discharge from the hospital. He continues to reside at a fdc facility where he is getting some therapy. Personal from the fdc facility accompany him today and state that he is still a full Kiara lift from bed but therapy is working with transfers with the patient. He continues to use right knee immobilizer keeping and contraction in the right lower extremity after his right BKA. He also continues to have daily dressing changes to the left heel wound with silver gel. Exam Extrem: Other: Patient's right BKA stump continues to heal well. There is no redness and minimal swelling. All sutures are intact and the flap is well vascularized and completely viable. There is no drainage from the suture line. He is able of flex and extend almost 180? at the right knee. The left heel wound then used to contract in size. There is no depth now. There is good granulation tissue with actually some portions of hypergranulation in the wound. There is no redness. No nonviable tissue. The left heel wound now measures 3x3.2x0.2cm. Objective Data Labs Labs: Laboratory Results - last 24 hr 06/07/24 09:54 POC Capillary Glucose 79
--- NOTE | 2024-06-28 09:31 | PCWOUND ---
WOCN NOTE Patient did not show up for appointment, Facility called and stated their van is not working. Rescheduled for next week.
--- NOTE | 2024-08-04 14:47 | WPDPN ---
Progress Note: A&P Assessment and Plan (1) S/P BKA (below knee amputation): Code(s): Z89.519 - Acquired absence of unspecified leg below knee Status: Acute Assessment and Plan: The right BKA stump is well healed. He can get a stump technical analyst for the stump and then be fitted for right below-knee prosthesis. I will send a prescription to [facility] here in [place], [place] to get the process started. (2) Ulcer of left heel: Code(s): L97.429 - Non-pressure chronic ulcer of left heel and midfoot with unspecified severity Status: Acute Assessment and Plan: The left heel ulcer is nearly healed. I think he can be weight-bearing on the left foot now. Follow-up see in my office in 4 weeks. Subjective Date/time seen: 08/04/24 14:47 Interval history: Patient was seen in [facility] for follow-up of her was left heel wound and his right below-knee amputation stump. He is actually doing pretty well. He has not started the process of getting a prosthesis fitted for the right BKA stump yet. He is still residing at a retirement facility. Exam Extrem: Other: Right BKA stump has healed well. There is no edema at the end of the stump. He has full range of extension and flexion at the right knee joint. No open wounds. The left heel ulcer has healed all the way up to the level of the skin. There is small opening which will eventually get a scabbed. No cellulitis.
== END 2024-09-05 23:59 | disposition home or self-care (01) ==
LOC: ANHWOC 07:40
PROVIDERS: PCP Internal Medicine; Visit Provider Surgery
DX: E11.621 Type 2 diabetes mellitus with foot ulcer (principal); L97.509 Non-pressure chronic ulcer of other part of unspecified foot with unspecified severity; Z89.511 Acquired absence of right leg below knee
CPT/HCPCS: 82948; 99213; 99214; G0463

== ENCOUNTER 2024-08-25 14:17 | Inpatient (IN) | payer MEDICARE, MEDICAID, SELFPAY ==
[2024-08-25] VITALS (21 sets, daily range): BP systolic 86–125; BP diastolic 47–71; PULSE 80–87; RESP 14–26; TEMP 36.4–37.1; O2SAT 93–100; BMI 34.6
--- NOTE | ~2024-08-25 | XR_ITS ---
XR chest 1V portable Ordering provider: Tirso Perez MD History: 63 years Male with . Dizziness . Comparison: None. FINDINGS: MEDIASTINUM: The cardiac silhouette is slightly enlarged. Left bipolar pacemaker. Congestive bobby. LUNGS: No effusions or pneumothorax. Bilateral interstitial thickening suggestive of pneumonitis vers us pulmonary edema. Opacification in the left lung base seen suggestive of pneumonia. OTHER: No free air under the diaphragm. Degenerative changes of the spine. IMPRESSION: Left lower lobe pneumonia. Bilateral pneumonitis versus pulmonary edema. Reviewed, dictated and finalized at location A.
--- NOTE | ~2024-08-25 | XR_ITS ---
EXAMINATION: XR chest 1V portable DATE: 08/30/2024 14:43 INDICATION: Shortness of breath. TECHNIQUE: A single frontal view of the chest was obtained on 2 radiographs. COMPARISON: Chest view 08/25/2024, CT abdomen and pelvis 05/03/2024 FINDINGS: There are airspace opacities in the perihilar regions and at left lung base. No pleural eff usion or pneumothorax. The heart size is normal. There is a left chest pacer with leads in right atri um, right ventricle, and coronary sinus. IMPRESSION: 1. Airspace opacities in the perihilar regions and at left lung base with worsening on the left, cons istent with mild pulmonary edema and left basilar atelectasis versus pneumonia. Reviewed, dictated and finalized at location A. IMPRESSION: 1. Airspace opacities in the perihilar regions and at left lung base with worse evelin on the left, consistent with mild pulmonary edema and left basilar atelect asis versus pneumonia.
--- NOTE | 2024-08-25 14:27 | ED_ITS ---
HPI - Recheck/Abnormal Lab/Rx General Chief Complaint: Recheck/Abnormal Lab/Rx Stated Complaint: BP ISSUES Time Seen by Provider: 08/25/24 14:26 Source: patient and EMS Mode of arrival: EMS Limitations: no limitations History of Present Illness HPI narrative: 63 YEARS OLD WHITE MALE CAME TO THE ED FROM CORRECTION BY AMBULANCE BECAUSE OF SUDDEN ONSET OF DIZZINESS AFTER STOOD UP FROM SITTING POSITION DURING PHYSICAL THERAPY. PATIENT IS TELLING ME THAT HE BEEN GOING THROUGH PHYSICAL THERAPY BECAUSE HAD RIGHT BELOW-KNEE AMPUTATION MAY 2024. HISTORY OF DIABETES, HYPERTENSION, HYPERLIPIDEMIA, COPD ON OXYGEN VIA NASAL CANNULA, CORONARY STENTS, PARKINSON'S, CVA WITH LEFT LOWER EXTREMITY WEAKNESS. PATIENT CURRENTLY ON XARELTO. Related Data Allergies Allergy/AdvReac Type Severity Reaction Status Date / Time No Known Allergies Allergy Verified 08/25/24 14:51 Review of Systems 2 Review of Systems: All systems reviewed & are unremarkable except as noted in HPI and below PMFSH Past Medical History Medical History Cervical radiculopathy at C6 Right-sided cerebrovascular accident (CVA) Cellulitis of right lower extremity Stasis dermatitis Seasonal allergies Type 2 diabetes mellitus Diabetic foot ulcer Asthma Folate deficiency Hyperlipidemia Uncontrolled hypertension Bilateral cataracts Maturing Diabetic peripheral neuropathy Dyslipidemia Parkinsons disease Kidney stones Depression Gout Essential hypertension Anxiety BPH loc w urin obs/LUTS Chronic atrial fibrillation Coronary artery disease involving [place] heart without angina pectoris Surgical History Surgical History History of bilateral carpal tunnel release S/P cubital tunnel release Hx of tonsillectomy History of permanent cardiac pacemaker placement (~2015) [place] History of heart artery stent (~2008) Family History Family History Mother Family history of blood dyscrasia Grandparent Alcoholism Social History Social History Social History: He is and lives alone. He has 4 children 1 of which in a motor vehicle collision. He used to work for a [employer] but is now on disability. He smokes about 10 cigarettes a day and has smoked since his early 20s. He reports he quit smoking March 2024. He denies any significant alcohol use. Code status: DNR/DNI (per patient request) Surrogate decision maker: Enedelia Villalpando (friend) Smoking packs per day: 0.5 Smoking cigarettes per day: 10.0 Years smoked: 25 Smoking pack-years: 12.50 Smoking status: Former smoker Second hand tobacco smoke exposure: No Alcohol intake: current Alcohol use details: Occasionally Substance use: never Substance use type: does not use Do You Feel Safe in your Home?: Yes Lack of Transportation: No Lack of Food: Never True Current Housing: I Have Housing Concerned About Future Housing: No Difficulty Paying Gas/Electric Bills: YES Difficulty Paying for Meds: No Currently Unemployed: No Education: High School Diploma/GED Difficulty w/ Childcare or Family Care: No Spiritual care concerns: No Exam 2 Narrative: GENERAL APPEARANCE: WELL-DEVELOPED, WELL-NOURISHED SKIN: NORMAL COLOR, LEFT HEEL 0.5 X0.5 CM SUPERFICIAL ULCER AT THE HEEL AREA, NO DISCHARGE, NO ERYTHEMA, NO LOCALIZED TENDERNESS HEAD: NORMOCEPHALIC, NONTRAUMATIC EYES: CLEAR CONJUNCTIVA ENT: OROPHARYNX NORMAL, EARS NORMAL, NOSE NORMAL, 2 L NASAL CANNULA ON NECK: SUPPLE, NONTENDER CHEST AND RESPIRATORY: AIRWAY PATENT, NO RESPIRATORY DISTRESS, NO ACCESSORY MUSCLE USE HEART: REGULAR RATE/RHYTHM ABDOMEN: SOFT, NONTENDER, NO ORGANOMEGALY, QUIET BOWEL SOUNDS VASCULAR: NORMAL PERIPHERAL PULSES, NORMAL CAPILLARY REFILL. MUSCULOSKELETAL: RIGHT BELOW-KNEE AMPUTATION, NO SIGNS OF INFECTION NEUROLOGIC: ALERT AND ORIENTED ? NAME AND AGE ONLY Course Consultations Consultation #1: DR. DEVLIN DULCOLAX 20 MG P.O. ONCE, MIRALAX 1 BOTTLE ONCE FOR COLONOSCOPY IN THE MORNING Date: 08/25/24 Vital Signs Vital signs: Vital Signs Temperature 36.4 C 08/25/24 14:18 Pulse Rate 81 08/25/24 14:18 Respiratory Rate 26 H 08/25/24 14:18 Blood Pressure 125/47 L 08/25/24 14:18 Pulse Oximetry 97 08/25/24 14:18 Oxygen Delivery Nasal Cannula 08/25/24 14:18 Oxygen Flow Rate 3 08/25/24 14:18 Temperature 36.4 C 08/25/24 14:18 Pulse Rate 80 08/25/24 15:56 Respiratory Rate 18 08/25/24 15:56 Blood Pressure 105/60 08/25/24 15:56 Pulse Oximetry 98 08/25/24 15:56 Oxygen Delivery Nasal Cannula 08/25/24 14:51 Oxygen Flow Rate 2 08/25/24 14:51 MDM - Recheck/Abnormal Lab/Rx MDM Narrative Medical decision making narrative: PATIENT PRESENTS WITH LOW BLOOD PRESSURE AFTER PHYSICAL THERAPY VITAL SIGNS STABLE, PATIENT RECEIVED ROUGHLY 300 CC OF NORMAL SALINE BEFORE ARRIVAL TO THE EMERGENCY ROOM WITH BLOOD PRESSURE 125/47. AND PULSE OF 81. PHYSICAL EXAMINATION SHOWING INTERMITTENT TREMORS/SHAKING CONSISTENT WITH PARKINSON'S, RIGHT BELOW-KNEE AMPUTATION WITHOUT SIGN OF INFECTION DIFFERENTIAL DIAGNOSIS ORTHOSTATIC HYPOTENSION, ELECTROLYTE IMBALANCE, DEHYDRATION, SEPSIS. BLOOD WORKUP TODAY INCLUDE CBC, CMP, LACTIC ACID, BLOOD CULTURE, CRP SHOWED WBC 14.6, HEMOGLOBIN 6.4, HEMATOCRIT 21.4 INR 1.9 PN 30, CREATININE 1.9, C-REACTIVE PROTEIN 1.8 CHEST X-RAY SHOWED LEFT LOWER LOBE PNEUMONIA EKG SHOWED ELECTRONIC ATRIAL PACEMAKER ELECTRONIC VENTRICULAR PACEMAKER ABNORMAL RHYTHM EKG DIAGNOSIS AT THE TIME OF ADMISSION: ANEMIA, GI BLEED, PNEUMONIA, NANY ADMIT TO HOSPITALIST CONSULT GI Differential Diagnosis Differential diagnosis: Likely other ( ABOVE) Medical Records Attestation: I reviewed the patient's medical records. Lab Data Attestation: I reviewed the patient's lab results. 08/25/24 16:00 08/25/24 15:42 Labs: Lab Results 08/25/24 08/25/24 Range/Units 15:42 16:00 WBC 14.6 H (4.5-10.0) K/mm3 RBC 2.05 L (4.6-6.20) M/mm3 Hgb 6.4 L* D (14.0-18.0) g/dL Hct 21.4 L (42.0-52.0) % MCV 104.4 H (80-100) fl MCH 31.2 (26-34) pg MCHC 29.9 L (32-36) g/dl RDW 14.6 H (11.5-14.5) % Plt Count 263 (150-375) k/mm3 MPV 9.4 (7.4-10.4) fl Immature Gran % (Auto) 0.8 H (0-0.5) % Neut % (Auto) 89.9 H (45.5-73.1) % Lymph % (Auto) 3.3 L (18.3-44.2) % [place] % (Auto) 3.3 (2.6-8.5) % Eos % (Auto) 2.2 (0-4.4) % Baso % (Auto) 0.5 (0.2-1.2) % Lymph # (Auto) 0.48 L (0.9-3.2) K/mm3 [place] # (Auto) 0.5 (0.1-0.6) K/mm3 Eos # (Auto) 0.3 (0-0.3) K/mm3 Baso # (Auto) 0.1 (0.0-0.1) K/mm3 Abs Immat Gran (auto) 0.12 H (0.00-0.031) K/mm3 Absolute Neuts (auto) 13.2 H (1.3-6.7) K/mm3 Absolute Nucleated RBC 0.000 (0.0-0.012) K/mm3 Band Neutrophils % Not Reportable Nucleated RBC % 0.0 (0.0-0.2) % Platelet Estimate Adequate (Adequate) Hypochromasia 1+ Ovalocytes 1+ Schistocytes None seen PT 22.0 H (11.1-14.7) Seconds INR 1.9 APTT 42.6 H (22.3-36.8) Seconds Sodium 140 (137-145) mmol/L Potassium 4.5 (3.4-5.0) mmol/L Chloride 104 (98-107) mmol/L Carbon Dioxide 28 (22-30) mmol/L Anion Gap 8 (4-12) mmol/L BUN 30 H D (9-20) mg/dL Creatinine 1.90 H (0.7-1.3) mg/dL Estim Creat Clear Calc 48 ml/min Estimated GFR 36 L (59 - ) Glucose 130 H (65-110) mg/dL Lactic Acid 1.1 (0.7-2.0) mmol/L Calcium 10.4 H (8.4-10.2) mg/dL Total Bilirubin 0.6 (0.2-1.3) mg/dL AST 16 L (17-59) U/L ALT 14 (6-50) U/L Alkaline Phosphatase 119 (38-126) U/L C-Reactive Protein 1.8 H (<1.0) mg/dL Total Protein 8.0 (6.3-8.2) g/dL Albumin 3.7 (3.5-5.1) g/dL Critical Care Time Critical Care Time Critical Care Time: No Discharge Plan Discharge Clinical Impression: Pneumonia, Anemia, NANY (acute kidney injury), GI bleed Patient Disposition: Still a Patient Condition: Stable Patient Language: Marshallese Prescriptions: No Action triamcinolone acetonide 0.1 % cream 1 applic topical BID Qty: 454 11RF Rx Instructions: use 2x/day for 5 out of 7 days, then use Eucerin 2x/day for remaining 2 days of the week. gabapentin 600 mg tablet 600 mg PO BID Qty: 60 2RF levetiracetam [Keppra] 1,000 mg tablet 1,000 mg PO BID Qty: 60 0RF cetirizine 10 mg tablet 10 mg PO DAILY Qty: 90 3RF potassium chloride 20 mEq tablet,ER particles/crystals 20 meq PO DAILY Qty: 90 3RF tamsulosin 0.4 mg capsule 0.4 mg PO QHS Qty: 90 3RF allopurinol 100 mg tablet 200 mg PO DAILY Qty: 180 1RF ipratropium-albuterol 0.5 mg-3 mg(2.5 mg base)/3 mL solution for nebulization 3 ml inhalation QID PRN (Reason: shortness of breath or wheezing) Qty: 360 3RF metformin 1,000 mg tablet 1,000 mg PO BID Qty: 180 3RF Rx Instructions: with meals folic acid 1 mg tablet 1 mg PO DAILY Qty: 90 3RF Xarelto 20 mg tablet 20 mg PO DAILY Qty: 30 5RF Rx Instructions: must administer with evening meal atorvastatin [Lipitor] 40 mg tablet 40 mg PO DAILY Qty: 90 3RF aspirin 325 mg tablet 325 mg PO DAILY@0800 Qty: 30 0RF albuterol sulfate 90 mcg/actuation HFA aerosol inhaler 1 puff inhalation Q4H PRN (Reason: shortness of breath or wheezing) Qty: 25.5 3RF insulin glargine [Lantus U-100 Insulin] 100 unit/mL solution 18 unit subcut HS Qty: 10 5RF valsartan [Diovan] 40 mg tablet 40 mg PO DAILY Qty: 30 2RF furosemide 40 mg tablet 40 mg PO DAILY Qty: 30 11RF montelukast 10 mg tablet 10 mg PO HS Qty: 30 11RF Follow-up/Referrals: Phong Hinkle MD [Primary Care Provider] -
--- NOTE | 2024-08-25 14:32 | ECG_ITS ---
Test Date: 2024-08-25 14:34:50 Measurements Intervals [place] Rate: 80 P: 89 [place]: 228 QRS: -66 QRSD: 180 T: 88 QT: 423 QTc: 488 Interpretive Statements ELECTRONIC ATRIAL PACEMAKER ELECTRONIC VENTRICULAR PACEMAKER ABNORMAL RHYTHM ECG Compared to ECG 06/07/2024 10:32:06 No significant changes Electronically Signed On 08-26-2024 18:20:54 CDT by Alex Munoz M.D.
[2024-08-25] MEDS: SODIUM CHLORIDE 0.9% IV 1,000 ML 999 ML IV CONT ×2 (15:11→18:07)
--- OUTSIDE RECORDS SUMMARY | 2024-08-25 15:44 | XMS_ITS | Patient Health Record ---
Author Organization [facility] Address [address] [place] [address] Care Team Providers Care Practice Billing Associate Name Role Phone Yane Chaudhari Primary Care Provider [phone] Reason For Referral No Information Medications Medication [...] phone, visiting friends or family, going to tenriism or club meetings) 1 or 2 times a week How stressed are you? Stress is when someone feels tense, nervous, anxious, or can\t sleep at night because their mind is troubled Quite a bit In the past year have you sp ent more than 2 nights in a row in a fdc, long-term, mcfp center, or juvenile correctional facility? No Are [...] Problem Status W/U Status Risk Notes Problem 51195401 Tobacco dependence (F17.200) Active confirmed Problem Alcohol abuse (21262975) Alcohol abuse (F10.10) Active confirmed Problem Diabetes mellitus without complication (148385351) Diabetes (E11.9) Active confirmed Problem Bradycardia (37361175) Bradycardia (R00.1) Active confirmed Problem Disorder caused by alcohol (disorder) (465185575) Alcohol use disorder (F10.99) Active confirmed Problem [id number] Obesity (BMI 30.0-34.9) (E66.9) Active confirmed Problem High cholesterol (53579715) High cholesterol (E78.00) Active confirmed Plan Of Treatment Future Test Test Name Order Date Hepatic Function Panel (7)* 03/17/2019 Insurance Providers Payer Name Payer Address Payer Phone Subscriber Number Group Number Insured Name Patient Relationship to Insured Coverage Start Date Coverage End Date [facility] Claims Department [address] [place] [address] [phone] [id number] Joselito Lamar Self - patient is the insured 9 Medications Administered Medication Instructions Date of Administration Dosage Notes Vivitrol 10/01/2018 380 mg Patient tolera mel well. sample given Vivitrol 10/28/2018 380 mg [place] Layer: vidIQ Patient tolerated well. Vivitrol 11/25/2018 380 mg [place] Layer: alkermes Pt tolerated well. He denies any questions or concerns. Vivitrol 12/23/2018 380 mg Patient tolera mel well. Vivitrol 01/20/2019 380 mg Exp Jan 2021 M anufact by [employer] pt heraclio well. Vivitrol 02/17/2019 380 mg Exp Nov 2020 m anufact by [employer] pt heraclio well. Vivitrol 03/18/2019 380 mg Paver Layer A lkermes. Pt tolerated well. Voiced no questions or concerns at present time. Vivitrol 04/15/2019 380 mg Paver Layer-Alkermes Pt tolerated injection well. No questions or conerns verbalized. Vivitrol 05/13/2019 380 mg Paver Layer A lkermes. Pt tolerated well. Voiced no questions or concerns at present time. Medical (General) History Medical History History ICD Code Bradycardia High cholesterol Alcohol abuse Diabetes mellitus Surgical History Surgery Date(Month/Year) sun spots removed (removal of basal cell carcinoma) 02/2019
--- OUTSIDE RECORDS SUMMARY | 2024-08-25 15:44 | XMS_ITS | CONTINUITY OF CARE DOCUMENT ---
Author Name lai, lai Address Unknown Organization [facility] Address [address] [place] [address] Phone [phone] Care Team Providers Care Cdl B Driver Name Role Phone Chelsie Enriquez MD Unavailable [phone] Chelsie Enriquez MD Unavailable RUMA BRANCH-BC, GURMEET Unavailable PROBLEMS Condition Status Date Provider Notes Snoring - MAURICE? active Chelsie Enriquez MD COVID-19 asymptomatic, no ex posure, testing results unknown or negative screening active Chelsie Enriquez MD Dizziness active Sudhakar Narayan Bradycardia, severe active Sudhakar Narayan Atrial Fibrillation active Sudhakar Narayan Tremor active Chelsie Enriquez MD LBBB active Chelsie Enriquez MD Atrial flutter active [facility] [place] SOB active [facility] CAD- with stent active [facility] [place] Carotid bruit active [facility] CHF active Gian Lee Cardiomyopathy active Gian Lee status post PM- dual - Biotr onik/ Gen change BiV PM Biotronik 11/13/20 ( MRI safe) active Gian Lee ENCOUNTERS Date Type Provider Location Encounter Diag nosis - In-person encounter Office Visit Chelsie Enriquez MD [facility] - In-person encounter Office Visit Chelsie Enriquez MD [facility] status post PM- dual - Biotronik/ Gen change BiV PM Biotronik 11/13/20 ( MRI safe) - In-person encounter Office Visit Chelsie Enriquez MD [facility] - In-person encounter Office Visit Chelsie Enriquez MD [facility] - In-person encounter Office Visit Chelsie Enriquez MD [facility] - In-person encounter Office Visit Chelsie Enriquez MD [facility] CHFCardiomyopathy - In-person encounter Office Visit Chelsie Enriquez MD [facility] - In-person encounter Office Visit Chelsie Enriquez MD [facility] - In-person encounter Office Visit Chelsie Enriquez MD [facility] CAD- with stentCarotid bruit - In-person encounter Office Visit Chelsie Enriquez MD [facility] - In-person encounter Office Visit Chelsie Enriquez MD [facility] Atrial flutterSOB - In-person encounter Office Visit Chelsie Enriquez MD [facility] TremorLBBB - In-person encounter Office Visit Chelsie Enriquez MD [facility] - In-person encounter Office Visit Chelsie Enriquez MD [facility] status post PM- dual - Biotronik/ [...] Mass Index (Ratio) 36.41 kg/m2 [place] blood pressure, cuff size large Ke rri [...] Mass Index (Ratio) 34.64 kg/m2 [place] blood pressure, diastolic 90 mm[Hg] Jeb Goetz [...] lder height E&M 73 [in_i] Aliyah Gruenenfe [facility] Body Mass Index (Ratio) 31.40 kg/m2 [...] [lb_av] Estelle amezcua height E&M 73 [in_i] Estelle amezcua Body Mass Index (Ratio) 29.55 kg/m2 Jay Alvarenga blood pressure, diastolic 88 mm[Hg] Damian godoy Johnson blood pressure, systolic 140 mm[Hg] Selina Medinaam oxygen saturation, oximetry 98 % [place] Johnson respiratory rate E&M 16 /min Nuria Johnson pulse rate 96 /min Nuria Johnson weight E&M 224 [lb_av] Nuria Johnson height E&M 73 [in_i] [facility] Body Mass Index (Ratio) 29.55 kg/m2 Jord dc Cruzito blood pressure, diastolic, standing 90 mm [Hg] [place] Johnson blood pressure, systolic, standing 140 mm [Hg] [facility], diastolic, sitting 80 mm[ Hg] [facility] blood pressure, systolic, sitting 138 mm[ Hg] [facility] blood pressure, diastolic 80 mm[Hg] Damian [facility] blood pressure, systolic 138 mm[Hg] Selina peña [place] oxygen saturation, oximetry 98 % [facility] respiratory rate E&M 16 /min [facility] pulse rate 71 /min [facility] weight E&M 224 [lb_av] [facility] height E&M 73 [in_i] [facility] Body Mass Index (Ratio) 27.84 kg/m2 Quinn saavedra Helene blood pressure, diastolic 98 mm[Hg] [facility] blood pressure, systolic 148 mm[Hg] Selina peña [place] oxygen saturation, oximetry 99 % [facility] respiratory rate E&M 16 /min [facility] pulse rate 70 /min [facility] weight E&M 211 [lb_av] [facility] height E&M 73 [in_i] [facility] Body Mass Index (Ratio) 28.23 kg/m2 [...] Not Estab. platelet count 263 X10E3/UL [employer] [phone]/07/ 03 red blood cell distribution width 13.1 [...] LinkLogic 3.5-5.2 sodium, serum 142 mmol/L [employer] [phone]/07/ 03 urea nitrogen/creatinine ratio, serum 12 [employer]Logic [...] Not Estab. platelet count 304 X10E3/UL [employer] [phone]/06/ 05 red blood cell distribution width 13.0 [...] [employer]Logic 3.5-5.2 sodium, serum 142 mmol/L [employer] [phone]/06/ 05 urea nitrogen/creatinine ratio, serum 19 LinkLogic [...] [employer]Log[employer] 0-149 cholesterol, serum 151 mg/dL [employer] [phone]/09/ 24 calcium, serum 9.8 mg/dL [employer] 8.6-10.2 carbon dioxide, venous blood 24 mmol/L [employer] 20-29 chloride, serum 107 mmol/L [employer] 96-106 High potassium, serum 4.4 mmol/L [employer] 3.5-5.2 sodium, serum 144 mmol/L [employer] [phone]/09/ 24 urea nitrogen/creatinine ratio, serum 15 LinkLogic [...] history, tot al pack/day 1/2 ppd Octavio White cigarette use yes Octavio White smoking status [...] Aram whiteside is a former smoker. Leeannadenilson Jseus social history reviewed E&M revi ewed - [...] 1/2 ppd Nuria Johnson cigarette use yes [place] Johnson smoking status Former smoker [place] Ingr am social history reviewed E&M revi ewed - no changes required Oz Cruzito smoking, year quit 2018 [place] I ngram smoking history, tot al pack/day 1/2 ppd Nuria Johnson cigarette use yes [place] Johnson smoking status Former smoker Nuria Ingr am social history reviewed E&M revi ewed - no changes required Chelsie Enriquez MD social history E&M S moking History: Aram whiteside is a former smoker. Chelsie Enriquez MD smoking, year quit 2018 Nuria Alejandre ngram smoking history, tot al pack/day 1/2 ppd [place] Johnson cigarette use yes [place] Johnson smoking status Former smoker Nuria Ingr [...] Payer name Policy type / Coverage type [place] red constitution party ID [employer] Other [place] MEDICARE Medicare AARP MEDICARE ADVANTAGE ([facility] COMPLETE PPO) Other [id number] [facility] Medicaid 3 [id number] ADVANCE DIRECTIVES Name Date DISCUSSED - NO DECISION MADE TREATMENT PLAN Date Name Performer [id number],C, H is updated medication list for this [...] once a day Orders: Aram hayes 04-27 (CPT-31879) Chelsie Enriquez MD [id number],Chelsie Marrero MD [id number],W,i ncrtease diltiazem to 2 tabs fo 90 mg UDAY bid His updated medication list for this problem includes: Coreg 25 Mg Tablet (Carvedilol) ..... 2 tabs twice daily Aspirin 81 Mg Tablet,delayed Release (dr/ec) (Aspirin) ..... 1 tablet by mouth once a day Orders: Aram hayes 04-27 (CPT-57776) [facility] Home (CPT-05568) Chelsie Enriquez MD [id number],W,i ncrtease diltiazem to 2 tabs fo 90 mg UDAY bid Orders: P freddy - (CPT-87513) His updated medication list for this problem includes: Coreg 25 Mg Tablet (Carvedilol) ..... 2 tabs twice daily Aspirin 81 Mg Tablet,delayed Release (dr/ec) (Aspirin) ..... 1 tablet by mouth once a day Chelsie Enriquez MD [id number],S, E F 35% by echo today which is unchanged from previous p t complains of being tired. denies SOB s /p BiV-ppm His updated medication list for this problem includes: Aspirin 81 Mg Tablet,delayed Release (dr/ec) (Aspirin) ..... 1 tablet by mouth once a day Metoprolol Tartrate 50 Mg Tablet (Metoprolol tartrate) ..... 1 tablet twice a day Octavio White [id number],S, s /p upgrade to BIV PPM on 11/13/2020 Octavio White [id number],S, A V paced. C onverted on his [...] 1 tablet twice a day Octavio White [id number],S, c hest pain free His updated medication list for this problem includes: Aspirin 81 Mg Tablet,delayed Release (dr/ec) (Aspirin) ..... 1 tablet by mouth once a day Metoprolol Tartrate 50 Mg Tablet (Metoprolol tartrate) ..... 1 tablet twice a day Octavio White [id number],W, R A lead may be malfunctioning c heck CXR today m ay need RA lead repositioning or replacement Octavio White [id number],S, s /p BiV-PPM Octavio Estrellalucita [id number],B, n ormal function p acemaker dependent Gian Lee [id number],B, s /p upgrade to BIV PPM on 11/13/2020 E cho from [facility] 10/06/2020 showed: L v mildly enlarged L VEF 35-40% P acemaker leads m ild MR Orders: C omplete Echo (CPT-57215) Gian Lee [id number],B, A V paced. C onverted on his [...] 1 tablet twice a day Gian Lee [id number],S, s /p DC PPM. P PM dependent Haily Gaines NP [id number],W,I n a flutter today on EKG, controlled [...] once a day Orders: Aram hayes 04-27 (CPT-04911) Chelsie Enriquez MD Telehealth Chelsie amezcua MD Telehealth:incrtease diltiazem to 2 tabs fo 90 mg UDAY bid His updated medication list for this problem includes: Coreg 25 Mg Tablet (Carvedilol) ..... 2 tabs twice daily Aspirin 81 Mg Tablet,delayed Release (dr/ec) (Aspirin) ..... 1 tablet by mouth once a day Orders: Aram hayes 04-27 (CPT-40050) [facility] (CPT-32652) Chelsie Enriquez MD Telehealth:incrtease diltiazem to 2 tabs fo 90 mg UDAY bid Orders: Aram hayes 04-27 (CPT-69724) His updated medication list for this problem [...] Octavio White Electrophysiology: s /p BiV-PPM [facility]: n ormal function p acemaker dependent Gian Lee Electrophysiology: s /p upgrade to BIV PPM on 11/13/2020 E cho from [facility] 10/06/2020 showed: L v mildly enlarged L VEF 35-40% P acemaker leads m ild MR Orders: C omplete Echo (CPT-72861) Gian Lee Electrophysiology: A V paced. C [...] PPM on 11/13/2020 E cho from [facility] 10/06/2020 showed: L v mildly [...] : O rders: 9 9214 MOD 30-39min (CPT-94767) P molly Rai-V Leyla AGUILA (*) The [...] mouth daily Gian Lee :Echo from [facility] 10/06/2020 showed: L v mildly [...] acemaker dependent Willis Clinical Findings A T/AF [place]: 0.0% % Pacing: RA - 58% RV [...] (Aspirin) ..... One tab by mouth daily [facility] ho spital follow up : H is updated medication list for this problem includes: Aspirin Adult Low Dose 81 Mg Oral Tablet Delayed Release (Aspirin) ..... One tab by mouth daily [facility] ho spital follow up : H is updated medication list for this problem includes: Diltiazem Hcl 60 Mg Oral Tablet (Diltiazem hcl) ..... Take one tablet by mouth three times daily, patient not taking cardizem cd or amiodarone Aspirin Adult Low Dose 81 Mg Oral Tablet Delayed Release (Aspirin) ..... One tab by mouth daily [facility] ho spital follow up : O rders: 9 9212 Minor (CPT-15353) [facility] - stop li sinopril: O rders: F VC - 38458 (39690) F RC - 45909 (97348) D LCO - 02689 (96961) C omplete Echo (CPT-57463) S tress Regadenoson (CPT-58295) 9 9213 LTD. Complex (CPT-85159) [facility] - stop li sinopril: T he following medications were removed from the medication list: Amiodarone Hcl 200 Mg Oral Tablet (Amiodarone hcl) ..... One tab once a day His updated medication list for this problem includes: Aspirin Adult Low Dose 81 Mg Oral Tablet Delayed Release (Aspirin) ..... One tab by mouth daily Orders: E KG (CPT-49052) F VC - 45144 (20893) F RC - 34667 (42106) D LCO - 86847 (80616) C omplete Echo (CPT-24253) S tress Regadenoson (CPT-31966) 9 9213 LTD. Complex (CPT-26554) [facility] - stop li sinopril: H is [...] a tab. daily Orders: F VC - 80221 (79727) F RC - 23423 (87921) D LCO - 62133 (37423) C omplete Echo (CPT-34198) S tress Regadenoson (CPT-23763) 9 9213 LTD. Complex (CPT-67987) [facility] - stop li sinopril: Pt cannot [...] a tab. daily Orders: F VC - 29003 (92493) F RC - 35642 (40918) D LCO - 19142 (94859) C omplete Echo (CPT-36841) S tress Regadenoson (CPT-22051) 9 9213 LTD. Complex (CPT-94612) [facility] - stop li sinopril: O rders: F VC - 13784 (61167) F RC - 32003 (84065) D LCO - 74837 (15190) C omplete Echo (CPT-94289) S tress Regadenoson (CPT-11596) 9 9213 LTD. Complex (CPT-58060) [facility]rophys[facility]:s/ p DC PPM 08/24/18. [...] One tab. daily Orders: F VC - 85155 (28119) F RC - 23551 (87235) D LCO - 09371 (67694) [facility] Electrophysiology: O rders: F VC - 06505 (45839) F RC - 30476 (41583) D LCO - 14810 (44891) [facility] Electrophysiology: I mplanted 08/24/18. N ormal function. [facility] Electrophysiology:s/ p DC PPM 08/24/18. O rders: T EE/CV - GC (*) His updated medication list for this problem includes: Aspirin Adult Low Dose 81 Mg Oral Tablet Delayed Release (Aspirin) ..... One tab by mouth daily [facility] Electrophys[facility]: H is updated medication list [...] tab. daily Orders: G lobal No Charge (CPT-69204) Chelsie Enriquez MD Electrophysiology: O rders: aDvid KG (CPT-26137) His updated medication list for this problem [...] tab. daily Orders: G lobal No Charge (CPT-89262) Chelsie Enriquez MD Electrophysiology ho spital follow [...] eral Stress Regadenoson Complete Echo DLCO - 53662 FRC - 27436 FVC - 06159 DLCO - 90071 FRC - 72765 FVC - 83658 CULTURE, URINE, ROUT INE CBC (INCLUDES DIFF/P LT) BASIC METABOLIC PANE L W/EGFR MAGNESIUM BASIC METABOLIC PANE L W/EGFR PROTHROMBIN TIME WIT H INR DLCO - 27052 FRC - 64136 FVC - 50740 LAURA/CV - GC Complete Echo HISTORY OF PROCEDURES Procedure Date Procedure Name Provider Procedure Notes S tatus EKG Chelsie amezcua MD completed EKG Chelsie amezcua MD completed EKG Chelsie amezcua MD completed EKG Chelsie amezcua MD completed EKG Chelsie amezcua MD completed SARS-CoV-2 (COVID-19) POC Chelsie Enriquez MD completed EKG Chelsie amezcua MD completed EKG Chelsie amezcua MD completed FVC / MVV - 87133 Chelsie taylor MD completed BLOOD COUNT HEMOGLOBIN Chelsie Enriquez MD completed FRC - 33980 Chelsie amezcua MD completed SpO2 w/o 6min walk/titration Chelsie Enriquez MD completed DLCO - 78755 Chelsie amezcua MD completed EKG Chelsie amezcua [...] Chelsie Enriquez MD INTERROGATION REMOTE </90 D SUBSTANCE ABUSE COUNSELOR REVIEW completed Pacemaker Interrogation, Remote (Prof) Chelsie Enriquez MD INTERROGATION EVAL REMOTE </90 D 1/2/CHAPTER RELATIONS ADMINISTRATOR LEAD P completed Schedule Followup Chelsie taylor MD In 6 weeks. completed EKG Chelsie amezcua MD completed FVC / MVV - 41938 Chelsie taylor MD completed FR - 26702 Chelsie amezcua MD completed SpO2 w/o 6min walk/titration Chelsie Enriquez MD completed DLCO - 67313 Chelsie amezcua MD completed ICM Interrogation, Remote [...]
--- OUTSIDE RECORDS SUMMARY | 2024-08-25 15:44 | XMS_ITS | Referral Summary ---
Author Organization 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 Diabetes mellitus without complication 3 Diabetic foot ulcer 03/02/2023 High cholesterol 03/02/2023 Obesity (BMI 30.0-34.9) 03/02/2023 Tobacco dependence 03/02/2023 Lipoma of torso 03/02/2023 Dermoid cyst of skin of back 03/02/2023 Snoring 06/08/2021 Cardiomyopathy 10/23/2020 Overview (10/23/2020): Added automatically from request for surgery [id number] Congestive heart failure 10/12/2020 Arteriosclerosis of coronary artery 02/04/2019 Carotid bruit 02/04/2019 Shortness of breath 12/17/2018 Tremor 09/06/2018 Atrial fibrillation 2018 Bradycardia 2018 Dizziness 2018 Presence of [...] on file Legal Sex Male 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 Gender Identity Not on file Sexual Orientation Not on file Last Filed Vital Signs Vital Sign Reading Time Taken Comments Blood Pressure 157/98 05/19/2023 11:59 AM GRAIN BROKER AND MARKET OPERATOR Pulse 80 05/19/2023 11:59 AM GRAIN BROKER AND MARKET OPERATOR Temperature 36.2 C (97.2 F) 05/19/2023 11:59 AM GRAIN BROKER AND MARKET OPERATOR Respiratory Rate 18 05/19/2023 11:5 9 AM GRAIN BROKER AND MARKET OPERATOR Oxygen Saturation 95% 05/19/2023 11: 59 AM GRAIN BROKER AND MARKET OPERATOR Inhaled Oxygen Concentration - - Weight 142.5 kg (314 lb 2.5 oz) 05/19/2023 7:52 AM GRAIN BROKER AND MARKET OPERATOR Height 185.4 cm (6' 1 ) 05/19/2023 7:52 AM GRAIN BROKER AND MARKET OPERATOR Body Mass Index 41.45 05/19/2023 7:52 AM GRAIN BROKER AND MARKET OPERATOR Plan of Treatment Not on file Medical Devices Implanted Type Area Orthopedic Physical Therapist Device Identifier Shelf Expiration Date Model / Serial / Lot Biotronik Inc 199780 Sentus Promri 87cm Quadripolar Otw Thread Distal End Bend Left - [id number] - [id number] Implanted:Qty: 1 on 11/13/2020 by Chelsie Enriquez MD at [facility] Lead [employer] 09/05/2022 [id number] / [id number] / [employer] Inc [id number] Edora 8 Quadripolar Pacemaker Cardiac Hf-T - [id number] - [id number] Implanted:Qty: 1 on 11/13/2020 by Chelsie Enriquez MD at [facility] Pacemaker [employer] [id number] 02/05/2021 [id number] / [id number] / Procedures Procedure Name Priority Date/Time Associated [...] Most Recently Relevant to Health Maintenance Insurance [facility] MEDICARE ADVANTAGE IDKY [facility] MEDICARE ADVANTAGE Advance Directives For more information, please contact: [phone] Documents on File Type Date Recorded Patient Core Winder Machine Operator Expl anation Power of Warehouse Puller 05/19/2023 7:37 AM Care Teams Moshgiach Relationship Specialty Start Date End Date Treasure Johns NP [address] [address] PCP - General Family Medicine 03/02/23 Chelsie Enriquez MD [address] [place] [address] Consulting Physician Cardiology 11/13/20
--- OUTSIDE RECORDS SUMMARY | 2024-08-25 15:44 | XMS_ITS | Clinical Summary ---
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 Gender Identity Not on file Sexual Orientation Not on file Obstetrics History Last Filed Vital Signs Vital Sign Reading Time Taken Comments Blood Pressure 157/98 05/19/2023 11:59 AM HELP DESK ENGINEER Pulse 80 05/19/2023 11:59 AM HELP DESK ENGINEER Temperature 36.2 C (97.2 F) 05/19/2023 11:59 AM HELP DESK ENGINEER Respiratory Rate 18 05/19/2023 11:5 9 AM HELP DESK ENGINEER Oxygen Saturation 95% 05/19/2023 11: 59 AM HELP DESK ENGINEER Inhaled Oxygen Concentration - - Weight 142.5 kg (314 lb 2.5 oz) 05/19/2023 7:52 AM HELP DESK ENGINEER Height 185.4 cm (6' 1 ) 05/19/2023 7:52 AM HELP DESK ENGINEER Body Mass Index 41.45 05/19/2023 7:52 AM HELP DESK ENGINEER Plan of Treatment Health Maintenance Due Date Last Done Comments Albumin Creatinine Ratio, Urine 1958 Colon Cancer Screening-Colonoscopy 1958 Depression Screening 1958 Hemoglobin A1C 1958 Hepatitis C Screening 1958 Prostate Cancer Screening-PSA 1958 eGFR 1958 Dilated Eye Exam 1958 Foot Exam 1958 DTaP/Tdap/Td Vaccine (1 - Tdap) 1969 Hepatitis B Screening 1976 Pneumococcal vaccine 65+ (1 of 2 - PCV) 1977 Zoster Vaccine (1 of 2) 2008 Lipid Panel 06/30/2019 06/30/2018 Abdominal Aortic Aneurysm (A AA) Screen 08/28/2023 Well Visit 65+ 08/28/2023 Covid-19 Vaccine ( season) 2024 10/22/2021, 05/08/2021, 04/17/2021 Influenza Vaccine (#1) 2024 Fall Risk Assessment 04/22/2024 04/22/2023, 11/14/19 21 Medical Devices Implanted Type Area Certified Prosthetist Device Identifier Shelf Expiration Date Model / Serial / Lot Biotronik Inc [id number] Sentus Promri 87cm Quadripolar Otw Thread Distal End Bend Left - [id number] - [id number] Implanted:Qty: 1 on 11/13/2020 by Chelsie Enriquez MD at [facility] [employer] 09/05/2022 [id number] / [id number] / [employer] Inc [id number] Edora 8 Quadripolar Pacemaker Cardiac Hf-T - [id number] - [id number] Implanted:Qty: 1 on 11/13/2020 by Chelsie Enriquez MD at [facility] Pacemaker [employer] [id number] 02/05/2021 [id number] / [id number] / Procedures Procedure Name Priority Date/Time Associated [...] Most Recently Relevant to Health Maintenance Insurance [facility] MEDICARE ADVANTAGE IDPA [facility] MEDICARE ADVANTAGE Advance Directives For more information, please contact: [phone] Documents on File Type Date Recorded Patient Physical Therapy Instructor Expl anation Power of Take Off Man 05/19/2023 7:37 AM Care Teams Worm Raiser Relationship Specialty Start Date End Date Treasure Johns NP [address] [address] PCP - General Family Medicine 03/02/23 Chelsie Enriquez MD [address] [facility] [place] [address] Consulting Physician Cardiology 11/13/20
--- OUTSIDE RECORDS SUMMARY | 2024-08-25 15:44 | XMS_ITS | Clinical Summary ---
Author Organization [facility] Address [address] [place] [address] Care Team Providers Care Associate Professor Of Radiology Name Role Phone Jay Hinkle MD Primary Care Provider [phone] Source Comments [facility],non-owned Affiliates and Associated Physician Practices is amultiple site organization consisting of ambulatory clinics and hospital sitesin [place], [place], [place] and [place]. This disclosure is being madepursuant to the Care Everywhere program and may not contain all information available regarding this patient. Last updated 18.[facility] Expert TA Allergies No known active allergies Social History Tobacco Use Types Packs/Day Years Used Date Smoking Tobacco: Never Assessed Sex and Gender Information Value Date Recorded Sex Assigned at Not on file Gender Identity Not on file Sexual Orientation Not on file Last Filed Vital Signs Vital Sign Reading Time Taken Comments Blood Pressure 149/94 05/07/2022 9:40 AM RAILROAD ACCOUNTANT Pulse 90 05/07/2022 9:40 AM RAILROAD ACCOUNTANT Temperature - - Respiratory Rate - - Oxygen Saturation 93% 05/07/2022 9:40 AM RAILROAD ACCOUNTANT Inhaled Oxygen Concentration - - Weight - [...] 08/22/1976 DTAP/TDAP/TD VACCINES (1 - Tdap) 1977 PNEUMOCOCCAL VACCINE 50+ (1 of 1 - PCV) 2008 ZOSTER VACCINE (1 of 2) 2008 COVID-19 VACCINE (1 - 2023-2 5 season) 2024 INFLUENZA VACCINE (#1) 2024 DEPRESSION SCREENING 06/08/2024 MEDICARE AWV CALENDAR YEAR 2024 Respiratory Syncytial Virus (RSV) [...] patient's age to complete this topic MENINGOCOCCAL (Group B) VACC INE SHARED DECISION-MAKING Aged Out No longer eligibl e based on patient's age to complete this topic MENINGOCOCCAL GROUPS A/C/Y/W VACCINE Aged Out No longer eligible b ased on patient's age to complete this topic Medical Devices Implanted Type Area Engineering Inspection Assistant Device Identifier Shelf Expiration Date Model / Serial / Lot Biotronik Pacemaker; Mri Conditional 1.5t Care Teams Associate Professor Of Radiology Relationship Specialty Start Date End Date Jay Hinkle MD [address] [address] PCP - General Internal Medicine 01/25/19
[2024-08-25 16:01] LABS: Alanine Aminotransferase 14 U/L (6-50); Albumin Level 3.7 g/dL (3.5-5.1); Alkaline Phosphatase 119 U/L (38-126); Anion Gap 8 mmol/L (4-12); Aspartate Amino Transferase 16 U/L (17-59); Bilirubin,Total 0.6 mg/dL (0.2-1.3); Blood Urea Nitrogen 30 mg/dL (9-20); CRP 1.8 mg/dL (<1.0); Calcium 10.4 mg/dL (8.4-10.2); Carbon Dioxide 28 mmol/L (22-30); Chloride 104 mmol/L (98-107); Estimated CRCL calculation 48 ml/min; Estimated Glomerular Filt Rate 36; Glucose 130 mg/dL (65-110); Potassium 4.5 mmol/L (3.4-5.0); Sodium 140 mmol/L (137-145)
[2024-08-25 16:09] LABS: Basophils Absolute Auto 0.1 K/mm3 (0.0-0.1); Basophils Percent Auto 0.5 % (0.2-1.2); Eosinophils Absolute Auto 0.3 K/mm3 (0-0.3); Eosinophils Percent Auto 2.2 % (0-4.4); Hematocrit 21.4 % (42.0-52.0); Immature Granulocyte Absolute 0.12 K/mm3 (0.00-0.031); Immature Granulocyte Percent A 0.8 % (0-0.5); Lymphocytes Absolute Auto 0.48 K/mm3 (0.9-3.2); Lymphocytes Percent Auto 3.3 % (18.3-44.2); Mean Corpuscular HGB Conc 29.9 g/dl (32-36); Mean Corpuscular Hemoglobin 31.2 pg (26-34); Mean Corpuscular Volume 104.4 fl (80-100); Mean Platelet Volume 9.4 fl (7.4-10.4); Monocytes Absolute Auto 0.5 K/mm3 (0.1-0.6); Monocytes Percent Auto 3.3 % (2.6-8.5); Neutrophils Absolute Auto 13.2 K/mm3 (1.3-6.7); Neutrophils Percent Auto 89.9 % (45.5-73.1); Platelet Count Result 263 k/mm3 (150-375); Red Blood Count 2.05 M/mm3 (4.6-6.20); Red Cell Distribution Width 14.6 % (11.5-14.5); White Blood Count 14.6 K/mm3 (4.5-10.0)
[2024-08-25 16:19] LABS: Lactic Acid Reflex 1.1 mmol/L (0.7-2.0)
[2024-08-25 16:20] LABS: INR 1.9
[2024-08-25 16:21] LABS: Partial Thromboplastin Time 42.6 Seconds (22.3-36.8)
[2024-08-25 16:26] LABS: Hemoglobin 6.4 g/dL (14.0-18.0)
[2024-08-25 16:27] LABS: Hypochromasia 1+; Ovalocytes 1+; Platelet Estimate Adequate (Adequate); Schistocytes None Seen
--- NOTE | 2024-08-25 18:13 | PM.IMHP ---
H&P: HPI History of Present Illness Date/Time: 08/25/24 18:13 Chief Complaint: Hypotension, Weakness Narrative: 63 y/o M presents here with hypotension and weakness with PMH of CHF (EF 40-45% 04/2024), CVA, diabetes, hyperlipidemia, hypertension, Parkinson's disease, depression, gout, HTN, BPH, chronic AFib, coronary artery disease. The patient presents here from [facility] via EMS for further evaluation of low blood pressure and weakness. He reports he was attending physical therapy when he stood up and became very weak and shaky. The patient's blood pressure was checked which showed it was low, no exact number reported. EMS was contacted and upon their arrival the patient was hypotensive with a systolic in the 80s per the ED provider who spoke with EMS. He currently reports the low blood pressure and weakness are accompanied by shortness of breath, cough (deep, dry), chills. He denies fever, nausea, vomiting, or doiarrhea. Initial lab work showed a hemoglobin of 6.4 (baseline in 2023 was mid 7). He reports fatigue (worsened in the last 4-5 days). He reports he does not look at his stool and is unsure if his stool has been black/tarry. He is currently on Xarelto. Initial VS at presentation: 97.6? F, HR 81, R 26, 125/47, and 97% on 3L NC. ED workup showed: WBC 14.6, hemoglobin 6.4, INR 1.9, creatinine 1.9 and GFR 36 (previously 1.2 and GFR >60, May 2024), CRP 1.8. CXR showed left lower lobe pneumonia, bilateral pneumonitis versus pulmonary edema. Review of Systems Review of Systems: All systems reviewed & are unremarkable except as noted in HPI and below PMFSH Past Medical History Medical History Cervical radiculopathy at C6 Right-sided cerebrovascular accident (CVA) Cellulitis of right lower extremity Stasis dermatitis Seasonal allergies Type 2 diabetes mellitus Diabetic foot ulcer Asthma Folate deficiency Hyperlipidemia Uncontrolled hypertension Bilateral cataracts Maturing Diabetic peripheral neuropathy Dyslipidemia Parkinsons disease Kidney stones Depression Gout Essential hypertension Anxiety BPH loc w urin obs/LUTS Chronic atrial fibrillation Coronary artery disease involving [place] heart without angina pectoris Surgical History Surgical History History of bilateral carpal tunnel release S/P cubital tunnel release Hx of tonsillectomy History of permanent cardiac pacemaker placement (~2015) [place] History of heart artery stent (~2008) Family History Family History Mother Family history of blood dyscrasia Grandparent Alcoholism Social History Social History Social History: He is and lives alone. He has 4 children 1 of which in a motor vehicle collision. He used to work for a [employer] company but is now on disability. He smokes about 10 cigarettes a day and has smoked since his early 20s. He reports he quit smoking March 2024. He denies any significant alcohol use. Code status: DNR/DNI (per patient request) Surrogate decision maker: Enedelia Villalpando (friend) Smoking packs per day: 0.5 Smoking cigarettes per day: 10.0 Years smoked: 25 Smoking pack-years: 12.50 Smoking status: Former smoker Second hand tobacco smoke exposure: No Alcohol intake: current Alcohol use details: Occasionally Substance use: never Substance use type: does not use Do You Feel Safe in your Home?: Yes Lack of Transportation: No Lack of Food: Never True Current Housing: I Have Housing Concerned About Future Housing: No Difficulty Paying Gas/Electric Bills: YES Difficulty Paying for Meds: No Currently Unemployed: No Education: High School Diploma/GED Difficulty w/ Childcare or Family Care: No Spiritual care concerns: No Meds Home Medications and Allergies Home Medications ?Medication ?Instructions ?Recorded ?Confirmed ?Type cetirizine 10 mg tablet 10 mg PO DAILY #90 tabs 10/26/23 06/07/24 Rx triamcinolone acetonide 0.1 % 1 applic topical BID #454 grams 12/09/23 05/04/24 Rx topical cream potassium chloride 20 mEq 20 meq PO DAILY #90 tabs 02/23/24 06/07/24 Rx tablet,extended release(part/cryst) tamsulosin 0.4 mg capsule 0.4 mg PO QHS #90 caps 03/03/24 06/07/24 Rx allopurinol 100 mg tablet 200 mg (2 x 100 mg) PO DAILY #180 05/23/24 06/07/24 Rx tabs ipratropium 0.5 mg-albuterol 3 mg 3 ml inhalation QID PRN shortness 05/30/24 Rx (2.5 mg base)/3 mL nebulization of breath or wheezing #360 mL soln levetiracetam 1,000 mg tablet 1,000 mg PO BID #60 tabs 06/07/24 Rx (Keppra) gabapentin 600 mg tablet 600 mg PO BID #60 tabs 06/23/24 06/23/24 Rx folic acid 1 mg tablet 1 mg PO DAILY #90 tabs 07/22/24 Rx metformin 1,000 mg tablet 1,000 mg PO BID #180 tabs 07/22/24 Rx rivaroxaban 20 mg tablet (Xarelto) 20 mg PO DAILY #30 tabs 08/01/24 Rx aspirin 325 mg tablet 325 mg PO DAILY@0800 #30 tabs 08/09/24 Rx atorvastatin 40 mg tablet (Lipitor) 40 mg PO DAILY #90 tabs 08/09/24 Rx albuterol sulfate 90 mcg/actuation 1 puff inhalation Q4H PRN 08/15/24 Rx aerosol inhaler shortness of breath or wheezing #25.5 grams insulin glargine 100 unit/mL 18 unit (0.18 mL) subcut HS #10 mL 08/15/24 Rx subcutaneous solution (Lantus U-100 Insulin) valsartan 40 mg tablet (Diovan) 40 mg PO DAILY #30 tabs 08/15/24 Rx furosemide 40 mg tablet 40 mg PO DAILY #30 tabs 08/24/24 Rx montelukast 10 mg tablet 10 mg PO HS #30 tabs 08/24/24 Rx Allergies Allergy/AdvReac Type Severity Reaction Status Date / Time No Known Allergies Allergy Verified 08/25/24 14:51 Vital Signs Vital Signs - 24 hr 08/25/24 14:18 08/25/24 14:18 08/25/24 14:51 Temperature 97.6 F Pulse Rate 81 Respiratory Rate 26 H 18 Blood Pressure 125/47 L Pulse Oximetry 97 95 Oxygen Delivery Nasal Cannula Nasal Cannula Oxygen Flow Rate 3 3 2 08/25/24 15:14 08/25/24 15:16 08/25/24 15:31 Temperature Pulse Rate 80 80 87 Respiratory Rate 21 H 19 19 Blood Pressure 99/60 L 105/62 95/57 L Pulse Oximetry 96 96 97 Oxygen Delivery Oxygen Flow Rate 08/25/24 15:46 08/25/24 15:56 08/25/24 16:00 Temperature Pulse Rate 80 80 80 Respiratory Rate 22 H 18 14 Blood Pressure 105/60 105/60 Pulse Oximetry 100 98 98 Oxygen Delivery Oxygen Flow Rate 08/25/24 16:01 08/25/24 16:07 08/25/24 17:11 Temperature Pulse Rate 80 80 80 Respiratory Rate 19 18 21 H Blood Pressure 86/53 L 99/53 L 106/50 L Pulse Oximetry 98 96 95 Oxygen Delivery Oxygen Flow Rate 08/25/24 17:16 08/25/24 17:54 08/25/24 17:56 Temperature Pulse Rate 80 80 80 Respiratory Rate 20 17 20 Blood Pressure 99/66 L 87/65 L 94/56 L Pulse Oximetry 93 96 Oxygen Delivery Oxygen Flow Rate 08/25/24 18:01 Temperature Pulse Rate 80 Respiratory Rate 20 Blood Pressure 91/58 L Pulse Oximetry 97 Oxygen Delivery Oxygen Flow Rate Exam Const: General: comfortable and no acute distress Other: , male, ill-appearing. +rigors. HENMT: Face/Nose/Sinus: Normal nares present Mouth: Yes moist mucous membranes Eyes: General: appearance normal, both eyes and all related structures Sclera: sclerae normal Pupils: Equal, round and reactive pupils present EOM: EOMs intact bilaterally Resp: Effort & Inspection: normal respiratory effort Other: +rhonchi and intermittent exp wheeze. Cardio: Rate: regular rate Rhythm: regular rhythm Other: S1-S2 present without murmur, rub, ectopy GI: Other: Abdomen rounded, soft, nontender. Skin: General skin exam: normal color and no rashes or lesions noted Neuro: Speech: normal speech Motor exam (neuro): 5/5 motor strength present throughout Sensory Exam: normal sensation Other: A&O x4 Extrem: Other: Right BKA. No edema to the LLE. Psych: Mental Status: mental status grossly normal Affect: normal affect Other: Good insight and judgment, pleasant H&P: Results Labs Labs: Short CBC 08/25/24 Range/Units 16:00 WBC 14.6 H (4.5-10.0) K/mm3 Hgb 6.4 L* D (14.0-18.0) g/dL Hct 21.4 L (42.0-52.0) % Plt Count 263 (150-375) k/mm3 BMP 08/25/24 15:42 Sodium 140 Potassium 4.5 Chloride 104 Carbon Dioxide 28 BUN 30 H D Creatinine 1.90 H Glucose 130 H Calcium 10.4 H Liver Function 08/25/24 Range/Units 15:42 Total Bilirubin 0.6 (0.2-1.3) mg/dL AST 16 L (17-59) U/L ALT 14 (6-50) U/L Alkaline Phosphatase 119 (38-126) U/L Albumin 3.7 (3.5-5.1) g/dL Assessment and Plan Assessment and plan (1) Anemia: Qualifiers: Anemia type: unspecified type Qualified Code(s): D64.9 - Anemia, unspecified Code(s): D64.9 - Anemia, unspecified Status: Acute Assessment and Plan: - acute on chronic - Hgb 6.4 previously 10.8 on 06/07/2024 range in 2023: 7.3 - 10.8 - add iron, TIBC, ferritin, B12, folic acid, and TSH - transfuse if <7 plan for 1u of PRBC today, 08/25 - trend H&H - stool occult/NII positive, GI consulted (2) Pneumonia: Qualifiers: Laterality: left Lung location: lower lobe of lung Pneumonia type: due to unspecified organism Qualified Code(s): J18.9 - Pneumonia, unspecified organism Code(s): J18.9 - Pneumonia, unspecified organism Status: Acute Assessment and Plan: - CXR: Left lower lobe pneumonia. Bilateral pneumonitis versus pulmonary edema. - risk factors and complicating factors: [place] resident - started on CAP tx: Ceftriaxone and azithromycin on 08/25 - check MRSA PCR and sputum culture (if obtainable) - check viral PCR - supportive care: DuoNeb p.r.n., Mucinex rolan, Tylenol p.r.n., Tessalon Perles p.r.n. - currently on supplemental O2: 2L NC, baseline requirement? (3) Acute kidney injury: Code(s): N17.9 - Acute kidney failure, unspecified Status: Acute Assessment and Plan: - creatinine 1.9 and GFR 36, previously 1.2 and normal GFR on 06/07/2024 - check CK, urine sodium, protein/creatinine, urea, and UA - IV fluids: 1L bolus -> 100 mL/hr - monitor I&Os closely, CHF hx - stop mary kay inhibitors and diuretics as appropriate - nephrology consultation, awaiting recs (4) CHF (congestive heart failure): Qualifiers: Heart failure chronicity: acute Heart failure type: unspecified Qualified Code(s): I50.9 - Heart failure, unspecified Code(s): I50.9 - Heart failure, unspecified Status: Chronic Assessment and Plan: - most recent echo (04/2024): Technically difficult study, systolic function mildly reduced with estimated EF at 40-45%, moderately increased LV wall thickness, mild MV and TV regurgitation, diastolic function is indeterminate. - continue Lasix 40 mg p.o. daily - monitor I&Os - trend renal function (5) Type 2 diabetes mellitus: Code(s): E11.9 - Type 2 diabetes mellitus without complications Status: Chronic Assessment and Plan: - hypoglycemia protocol - POC blood glucose ACHS - correct regimen ordered - high dose TIDWM, based off BMI - A1C 8.4% on 05/04/2024, update (6) Hypertension: Qualifiers: Hypertension type: primary hypertension Qualified Code(s): I10 - Essential (primary) hypertension Code(s): I10 - Essential (primary) hypertension Status: Chronic Assessment and Plan: - chronic, intermittently soft since arrival. Currently 98/60. - hold home medications - monitor Plan Diet: Diabetic, NPO midnight GI Prophylaxis: Pantoprazole IV DVT Prophylaxis: SCDs Lines: Peripheral Code Status: Full code Quality VTE Prophylaxis VTE prophylaxis: mechanical ordered Hospitalist [facility] Advance Care Plan I have confirmed that the patient's Advanced Care Plan is present, code status is documented, or surrogate decision maker is listed in patient medical record.: Yes Medication Reconciliation I have utilized all available resources to obtain, update and review the patients current medications (includes all prescriptions, OTC, herbals, cannabis, and nutritional supplements).: Yes
[2024-08-25] MEDS: BISACODYL 5 MG TABLET EC 20 MG PO (18:38)
[2024-08-25] MEDS: SODIUM CHLORIDE 0.9% IV 250 ML 30 ML IV CONT (18:39)
[2024-08-25] MEDS: TUBING, BLOOD PLUM PUMP TUBING 1 EACH XX (18:40)
[2024-08-25] MEDS: polyethylene glycoL 3350 238 GM BOTTLE PO (18:46)
--- NOTE | 2024-08-25 20:28 | PC.NURSE ---
This patient, Joselito Lamar Jr., was admitted to [facility] Surg Room 303-01. Patient/family oriented to hospital policies and general routines including ID bracelet, bed and alarms, visiting hours, pain management, procedures, bathroom and other care routines, personal items, smoking policy, room service/diet, and visiting hours. Information on how to activate the Rapid Response Team has been discussed. Patient/Family are encouraged to report perceived risks to care and to ask questions if they do not understand what they are told or what they should do.
[2024-08-25 21:21] LABS: Glucose Point of Care 96 mg/dl (65-105)
--- NOTE | 2024-08-25 22:09 | P.CONGI_ITS ---
Assessment and Plan Assessment and plan (1) Acute on chronic anemia: Code(s): D64.9 - Anemia, unspecified Status: Acute Assessment and Plan: he has component of anemia of chronic disease probably from renal disease, DM, previous leg amputation, use of blood thinner, etc may have also some component of STEPHEN (low iron but also low TIBC, normal ferritin) he had previously occult blood in stool no overt gib he is on blood thinners will investigate with egd and colonoscopy to assess if gi source to explain anemia (last colonoscopy per patient more than 20 years ago) (2) Occult blood in stools: Code(s): R19.5 - Other fecal abnormalities Status: Acute Assessment and Plan: scopes (3) COVID: Code(s): U07.1 - COVID-19 Status: Acute Assessment and Plan: on isolation by primary (4) Chronic atrial fibrillation: Code(s): I48.20 - Chronic atrial fibrillation, unspecified Status: Acute Assessment and Plan: AC on hold now (5) Diabetic foot ulcer: Code(s): E11.621 - Type 2 diabetes mellitus with foot ulcer; L97.509 - Non-pressure chronic ulcer of other part of unspecified foot with unspecified severity Status: Acute (6) Acute kidney injury: Code(s): N17.9 - Acute kidney failure, unspecified Status: Acute Assessment and Plan: monitor (7) S/P BKA (below knee amputation): Code(s): Z89.519 - Acquired absence of unspecified leg below knee Status: Acute (8) CHF (congestive heart failure): Qualifiers: Heart failure chronicity: acute Heart failure type: unspecified Q ualified Code(s): I50.9 - Heart failure, unspecified Code(s): I50.9 - Heart failure, unspecified Status: Chronic GI Consult Note Consult date/time: 08/25/24 22:09 Reason for consult: symptomatic anemia HPI: Joselito Lamar Jr. is a 63 year old male with history of CHF (EF 40-45% 04/2024), CVA, diabetes, hyperlipidemia, hypertension, Parkinson's disease, depression, gout, HTN, chronic AFib on xarelto, chronic anemia, coronary artery disease. He was admitted from local rehabilitation facility after noted low blood pressure and weakness. He was attending physical therapy but got dizzy with generalized weakness. EMS staff noted SBP 80's, also had shortness of breath and cough, chills. ER blood work showed a hemoglobin of 6.4 (baseline 7.5-8). No overt gib but in the past had occult blood in stool. Last colonoscopy over 20 years ago. Also WBC 14.6, creatinine 1.9- baseline 1.2. CXR showed left lower lobe pneumonia, bilateral pneumonitis versus pulmonary edema. He will start bowel prep. Review of Systems 2 Constitutional: Constitutional: Reports chills and Reports lethargy Eyes: Eyes: Denies blurry vision ENT: Reports Normal hearing present Cardiovascular: Cardiovascular: Reports lightheadedness Respiratory: Respiratory: Reports cough Gastrointestinal: Gastrointestinal: Denies abdominal pain Musculoskeletal: Musculoskeletal: Reports neck pain (c/o pain) Integumentary/Breasts: Comments: wound in rt leg Neurologic: Denies Abnormal speech present Psychiatric: Psychiatric: Denies behavioral changes [facility] Past Medical History Medical History (Updated 08/26/24 @ 11:47 by Osiel Smith MD) COVID Occult blood in stools Acute on chronic anemia Cervical radiculopathy at C6 Right-sided cerebrovascular accident (CVA) Cellulitis of right lower extremity Stasis dermatitis Seasonal allergies Type 2 diabetes mellitus Diabetic foot ulcer Asthma Folate deficiency Hyperlipidemia Uncontrolled hypertension Bilateral cataracts Maturing Diabetic peripheral neuropathy Dyslipidemia Parkinsons disease Kidney stones Depression Gout Essential hypertension Anxiety BPH loc w urin obs/LUTS Chronic atrial fibrillation Coronary artery disease involving [place] heart without angina pectoris Surgical History Surgical History History of bilateral carpal tunnel release S/P cubital tunnel release Hx of tonsillectomy History of permanent cardiac pacemaker placement (~2015) [place] History of heart artery stent (~2008) Family History Family History Mother Family history of blood dyscrasia Grandparent Alcoholism Social History Social History Social History: He is and lives alone. He has 4 children 1 of which in a motor vehicle collision. He used to work for a [employer] but is now on disability. He smokes about 10 cigarettes a day and has smoked since his early 20s. He reports he quit smoking March 2024. He denies any significant alcohol use. Code status: DNR/DNI (per patient request) Surrogate decision maker: Enedelia Villalpando (friend) Smoking packs per day: 0.5 Smoking cigarettes per day: 10.0 Years smoked: 25 Smoking pack-years: 12.50 Smoking status: Former smoker Second hand tobacco smoke exposure: No Alcohol intake: current Alcohol use details: Occasionally Substance use: never Substance use type: does not use Do You Feel Safe in your Home?: Yes Lack of Transportation: No Lack of Food: Never True Current Housing: I Have Housing Concerned About Future Housing: No Difficulty Paying Gas/Electric Bills: YES Difficulty Paying for Meds: No Currently Unemployed: No Education: High School Diploma/GED Difficulty w/ Childcare or Family Care: No Spiritual care concerns: No Meds Home Medications and Allergies Home Medications ?Medication ?Instructions ?Recorded ?Confirmed ?Type cetirizine 10 mg tablet 10 mg PO DAILY #90 tabs 10/26/23 08/25/24 Rx potassium chloride 20 mEq 20 meq PO DAILY #90 tabs 02/23/24 08/25/24 Rx tablet,extended release(part/cryst) tamsulosin 0.4 mg capsule 0.4 mg PO QHS #90 caps 03/03/24 08/25/24 Rx allopurinol 100 mg tablet 200 mg (2 x 100 mg) PO DAILY #180 05/23/24 08/25/24 Rx tabs levetiracetam 1,000 mg tablet 1,000 mg PO BID #60 tabs 06/07/24 08/25/24 Rx (Keppra) folic acid 1 mg tablet 1 mg PO DAILY #90 tabs 07/22/24 08/25/24 Rx rivaroxaban 20 mg tablet (Xarelto) 20 mg PO DAILY #30 tabs 08/01/24 08/25/24 Rx aspirin 325 mg tablet 325 mg PO DAILY@0800 #30 tabs 08/09/24 08/25/24 Rx atorvastatin 40 mg tablet (Lipitor) 40 mg PO DAILY #90 tabs 08/09/24 08/25/24 Rx albuterol sulfate 90 mcg/actuation 1 puff inhalation Q4H PRN 08/15/24 08/25/24 Rx aerosol inhaler shortness of breath or wheezing #25.5 grams valsartan 40 mg tablet (Diovan) 40 mg PO DAILY #30 tabs 08/15/24 08/25/24 Rx furosemide 40 mg tablet 40 mg PO DAILY #30 tabs 08/24/24 08/25/24 Rx montelukast 10 mg tablet 10 mg PO HS #30 tabs 08/24/24 08/25/24 Rx gabapentin 600 mg tablet 600 mg PO TID 08/25/24 08/25/24 History insulin glargine 100 unit/mL 22 unit subcut HS 08/25/24 08/25/24 History subcutaneous solution (Lantus U-100 Insulin) Allergies Allergy/AdvReac Type Severity Reaction Status Date / Time No Known Allergies Allergy Verified 08/25/24 14:51 Vital Signs Vital Signs - 24 hr 08/25/24 14:18 08/25/24 14:18 08/25/24 14:51 Temperature 97.6 F Pulse Rate 81 Respiratory Rate 26 H 18 Blood Pressure 125/47 L Pulse Oximetry 97 95 Oxygen Delivery Nasal Cannula Nasal Cannula Oxygen Flow Rate 3 3 2 08/25/24 15:14 08/25/24 15:16 08/25/24 15:31 Temperature Pulse Rate 80 80 87 Respiratory Rate 21 H 19 19 Blood Pressure 99/60 L 105/62 95/57 L Pulse Oximetry 96 96 97 Oxygen Delivery Oxygen Flow Rate 08/25/24 15:46 08/25/24 15:56 08/25/24 16:00 Temperature Pulse Rate 80 80 80 Respiratory Rate 22 H 18 14 Blood Pressure 105/60 105/60 Pulse Oximetry 100 98 98 Oxygen Delivery Oxygen Flow Rate 08/25/24 16:01 08/25/24 16:07 08/25/24 17:11 Temperature Pulse Rate 80 80 80 Respiratory Rate 19 18 21 H Blood Pressure 86/53 L 99/53 L 106/50 L Pulse Oximetry 98 96 95 Oxygen Delivery Oxygen Flow Rate 08/25/24 17:16 08/25/24 17:54 08/25/24 17:56 Temperature Pulse Rate 80 80 80 Respiratory Rate 20 17 20 Blood Pressure 99/66 L 87/65 L 94/56 L Pulse Oximetry 93 96 Oxygen Delivery Oxygen Flow Rate 08/25/24 18:01 08/25/24 18:20 08/25/24 18:39 Temperature 98.5 F 98.7 F Pulse Rate 80 80 80 Respiratory Rate 20 20 16 Blood Pressure 91/58 L 98/60 L 98/60 L Pulse Oximetry 97 97 98 Oxygen Delivery Oxygen Flow Rate 08/25/24 18:51 08/25/24 19:39 08/25/24 19:39 Temperature 98.8 F 98.8 F Pulse Rate 80 80 80 Respiratory Rate 18 16 16 Blood Pressure 110/71 106/62 106/62 Pulse Oximetry 99 100 100 Oxygen Delivery Oxygen Flow Rate 08/25/24 20:00 Temperature 97.7 F Pulse Rate 80 Respiratory Rate 16 Blood Pressure 103/47 L Pulse Oximetry 100 Oxygen Delivery Oxygen Flow Rate Exam 2 Const: General: comfortable and no acute distress HENMT: Face/Nose/Sinus: Normal nares present Mouth: Yes moist mucous membranes Eyes: General: appearance normal, both eyes and all related structures S clera: sclerae normal Neck: Neck: supple Resp: Auscultation: no crackles and rhonchi Other: +rhonchi and intermittent exp wheeze. Cardio: Rate: regular rate Rhythm: regular rhythm GI: GI Palp: Yes Soft to palpation and No Tenderness to palpation present (GI) Auscultation: normal bowel sounds Skin: General skin exam: normal color Neuro: Speech: normal speech Motor exam (neuro): 5/5 motor strength present throughout Sensory Exam: normal sensation Other: A&O x4 Extrem: Other: Right BKA. No edema to the LLE. Psych: Mental Status: mental status grossly normal Affect: normal affect Other: Good insight and judgment, pleasant Results Labs 08/26/24 10:50 08/26/24 05:47 Labs: Short CBC 08/25/24 Range/Units 16:00 WBC 14.6 H (4.5-10.0) K/mm3 Hgb 6.4 L* D (14.0-18.0) g/dL Hct 21.4 L (42.0-52.0) % Plt Count 263 (150-375) k/mm3 BMP 08/25/24 15:42 Sodium 140 Potassium 4.5 Chloride 104 Carbon Dioxide 28 BUN 30 H D Creatinine 1.90 H Glucose 130 H Calcium 10.4 H Liver Function 08/25/24 Range/Units 15:42 Total Bilirubin 0.6 (0.2-1.3) mg/dL AST 16 L (17-59) U/L ALT 14 (6-50) U/L Alkaline Phosphatase 119 (38-126) U/L Albumin 3.7 (3.5-5.1) g/dL
[2024-08-25 22:38] LABS: Hematocrit 33.1 % (42.0-52.0); Hemoglobin 10.3 g/dL (14.0-18.0)
[2024-08-25 22:48] LABS: Iron 25 ug/dL (49-181); Percent Iron Saturation 14 % (20-50)
[2024-08-25 23:31] LABS: Folic Acid > 20.0 ng/mL (2.76->20)
[2024-08-26] VITALS (9 sets, daily range): BP systolic 81–124; BP diastolic 56–70; PULSE 80; RESP 18–20; TEMP 36.3–37.4; O2SAT 90–97; BMI 34.6
[2024-08-26] MEDS: SODIUM CHLORIDE 0.9% IV 1,000 ML 100 ML IV CONT (00:52)
[2024-08-26] MEDS: MONTELUKAST SODIUM 10 MG TABLET PO ×2 (00:53→20:18)
[2024-08-26] MEDS: levETIRAcetam 500 MG TABLET 1000 MG PO ×3 (00:53→20:18)
[2024-08-26] MEDS: TAMSULOSIN HCL 0.4 MG CAPSULE PO ×2 (00:53→20:18)
[2024-08-26] MEDS: MAGNESIUM CITRATE 300 ML BTL PO ×2 (00:54→10:10)
[2024-08-26] MEDS: guaiFENesin 12 HR 600 MG TABCR PO ×3 (00:55→20:18)
[2024-08-26 06:19] LABS: Basophils Absolute Auto 0.1 K/mm3 (0.0-0.1); Basophils Percent Auto 0.9 % (0.2-1.2); Eosinophils Absolute Auto 0.2 K/mm3 (0-0.3); Eosinophils Percent Auto 1.6 % (0-4.4); Hemoglobin 9.7 g/dL (14.0-18.0); Immature Granulocyte Absolute 0.05 K/mm3 (0.00-0.031); Immature Granulocyte Percent A 0.5 % (0-0.5); Lymphocytes Absolute Auto 0.87 K/mm3 (0.9-3.2); Lymphocytes Percent Auto 8.2 % (18.3-44.2); Mean Corpuscular HGB Conc 30.3 g/dl (32-36); Mean Corpuscular Hemoglobin 30.5 pg (26-34); Mean Corpuscular Volume 100.6 fl (80-100); Mean Platelet Volume 9.5 fl (7.4-10.4); Monocytes Absolute Auto 0.7 K/mm3 (0.1-0.6); Monocytes Percent Auto 6.9 % (2.6-8.5); Neutrophils Absolute Auto 8.7 K/mm3 (1.3-6.7); Neutrophils Percent Auto 81.9 % (45.5-73.1); Platelet Count Result 346 k/mm3 (150-375); Red Blood Count 3.18 M/mm3 (4.6-6.20); Red Cell Distribution Width 15.1 % (11.5-14.5); White Blood Count 10.6 K/mm3 (4.5-10.0)
[2024-08-26 06:33] LABS: Alanine Aminotransferase 12 U/L (6-50); Albumin Level 3.5 g/dL (3.5-5.1); Alkaline Phosphatase 107 U/L (38-126); Anion Gap 7 mmol/L (4-12); Aspartate Amino Transferase 23 U/L (17-59); Bilirubin,Total 0.7 mg/dL (0.2-1.3); Blood Urea Nitrogen 31 mg/dL (9-20); Calcium 10.1 mg/dL (8.4-10.2); Carbon Dioxide 27 mmol/L (22-30); Chloride 107 mmol/L (98-107); Estimated CRCL calculation 49 ml/min; Estimated Glomerular Filt Rate 37; Glucose 107 mg/dL (65-110); Potassium 4.6 mmol/L (3.4-5.0); Sodium 141 mmol/L (137-145)
[2024-08-26 07:43] LABS: Influenza A QL RT-PCR Negative (Negative); Influenza B QL RT-PCR Negative (Negative); RSV RNA, RT-PCR Negative (Negative); SARS-CoV-2 RNA PCR Positive (Negative)
[2024-08-26 08:17] LABS: MRSA (PCR) DETECTED (NOT DETECTE)
[2024-08-26 08:22] LABS: Glucose Point of Care 95 mg/dl (65-105)
[2024-08-26] MEDS: PANTOPRAZOLE SODIUM IV 40 MG VIAL IV PUSH (08:52)
[2024-08-26] MEDS: allopurinoL 100 MG TABLET 200 MG PO (08:52)
[2024-08-26] MEDS: FOLIC ACID 1 MG TABLET PO (08:53)
[2024-08-26] MEDS: ASPIRIN 325 MG TABLET PO (08:53)
[2024-08-26] MEDS: ATORVASTATIN 40 MG TABLET PO (08:53)
[2024-08-26] MEDS: POTASSIUM CHLORIDE 20 MEQ ER TABLET PO (08:53)
[2024-08-26] MEDS: LORATADINE 10 MG TABLET PO (08:53)
[2024-08-26] MEDS: GABAPENTIN 300 MG CAPSULE 600 MG PO ×3 (08:53→17:38)
[2024-08-26] MEDS: VALSARTAN 40 MG TABLET PO (08:54)
[2024-08-26 11:12] LABS: Hematocrit 29.9 % (42.0-52.0); Hemoglobin 9.2 g/dL (14.0-18.0)
[2024-08-26] MEDS: ACETAMINOPHEN 325 MG TABLET 650 MG PO (12:06)
[2024-08-26 12:28] LABS: Glucose Point of Care 97 mg/dl (65-105)
--- NOTE | 2024-08-26 12:45 | P.PNAN_ITS ---
Anes - Initial Pre Proc Eval Procedure: Operation Date: 08/26/24 13:30 Proposed Procedures p Esophagogastroduodenoscopy & Colonoscopy - Ankit Trimble MD Date/Time: 08/26/24 12:45 Surgeon: Anali Lino MD Pre Op Diagnosis: GI Bleed/Anemia/Dizziness Patient Data Age: 63 Gender: M Height: 1.85 m Weight: 119 kg Last Vital Signs Temp 37.4 C 08/26/24 05:47 Pulse 80 08/26/24 05:47 Resp 18 08/26/24 05:47 BP 124/68 08/26/24 05:47 Pulse Ox 96 08/26/24 10:10 O2 Del Method Nasal Cannula 08/26/24 10:10 O2 Flow Rate 2 08/26/24 10:10 Allergies Allergy/AdvReac Type Severity Reaction Status Date / Time No Known Allergies Allergy Verified 08/25/24 14:51 Home Medications ?Medication ?Instructions ?Recorded ?Confirmed ?Type cetirizine 10 mg tablet 10 mg PO DAILY #90 tabs 10/26/23 08/25/24 Rx potassium chloride 20 mEq 20 meq PO DAILY #90 tabs 02/23/24 08/25/24 Rx tablet,extended release(part/cryst) tamsulosin 0.4 mg capsule 0.4 mg PO QHS #90 caps 03/03/24 08/25/24 Rx allopurinol 100 mg tablet 200 mg (2 x 100 mg) PO DAILY #180 05/23/24 08/25/24 Rx tabs levetiracetam 1,000 mg tablet 1,000 mg PO BID #60 tabs 06/07/24 08/25/24 Rx (Keppra) folic acid 1 mg tablet 1 mg PO DAILY #90 tabs 07/22/24 08/25/24 Rx rivaroxaban 20 mg tablet (Xarelto) 20 mg PO DAILY #30 tabs 08/01/24 08/25/24 Rx aspirin 325 mg tablet 325 mg PO DAILY@0800 #30 tabs 08/09/24 08/25/24 Rx atorvastatin 40 mg tablet (Lipitor) 40 mg PO DAILY #90 tabs 08/09/24 08/25/24 Rx albuterol sulfate 90 mcg/actuation 1 puff inhalation Q4H PRN 08/15/24 08/25/24 Rx aerosol inhaler shortness of breath or wheezing #25.5 grams valsartan 40 mg tablet (Diovan) 40 mg PO DAILY #30 tabs 08/15/24 08/25/24 Rx furosemide 40 mg tablet 40 mg PO DAILY #30 tabs 08/24/24 08/25/24 Rx montelukast 10 mg tablet 10 mg PO HS #30 tabs 08/24/24 08/25/24 Rx gabapentin 600 mg tablet 600 mg PO TID 08/25/24 08/25/24 History insulin glargine 100 unit/mL 22 unit subcut HS 08/25/24 08/25/24 History subcutaneous solution (Lantus U-100 Insulin) Laboratory Tests 08/25/24 08/25/24 08/25/24 15:42 16:00 16:48 WBC 14.6 H K/mm3 (4.5-10.0) RBC 2.05 L M/mm3 (4.6-6.20) Hgb 6.4 L* D g/dL (14.0-18.0) Hct 21.4 L % (42.0-52.0) MCV 104.4 H fl (80-100) MCH 31.2 pg (26-34) MCHC 29.9 L g/dl (32-36) RDW 14.6 H % (11.5-14.5) Plt Count 263 k/mm3 (150-375) MPV 9.4 fl (7.4-10.4) Immature Gran % (Auto) 0.8 H % (0-0.5) Neut % (Auto) 89.9 H % (45.5-73.1) Lymph % (Auto) 3.3 L % (18.3-44.2) [place] % (Auto) 3.3 % (2.6-8.5) Eos % (Auto) 2.2 % (0-4.4) Baso % (Auto) 0.5 % (0.2-1.2) Lymph # (Auto) 0.48 L K/mm3 (0.9-3.2) [place] # (Auto) 0.5 K/mm3 (0.1-0.6) Eos # (Auto) 0.3 K/mm3 (0-0.3) Baso # (Auto) 0.1 K/mm3 (0.0-0.1) Abs Immat Gran (auto) 0.12 H K/mm3 (0.00-0.031) Absolute Neuts (auto) 13.2 H K/mm3 (1.3-6.7) Absolute Nucleated RBC 0.000 K/mm3 (0.0-0.012) Band Neutrophils % Not Reportable Nucleated RBC % 0.0 % (0.0-0.2) Platelet Estimate Adequate (Adequate) Hypochromasia 1+ Ovalocytes 1+ Schistocytes None seen PT 22.0 H Seconds (11.1-14.7) INR 1.9 APTT 42.6 H Seconds (22.3-36.8) Sodium 140 mmol/L (137-145) Potassium 4.5 mmol/L (3.4-5.0) Chloride 104 mmol/L (98-107) Carbon Dioxide 28 mmol/L (22-30) Anion Gap 8 mmol/L (4-12) BUN 30 H D mg/dL (9-20) Creatinine 1.90 H mg/dL (0.7-1.3) Estim Creat Clear Calc 48 ml/min Estimated GFR 36 L (59 - ) Glucose 130 H mg/dL (65-110) POC Capillary Glucose Lactic Acid 1.1 mmol/L (0.7-2.0) Calcium 10.4 H mg/dL (8.4-10.2) Iron 25 L ug/dL (49-181) TIBC 183 L ug/dL (265-497) % Saturation 14 L % (20-50) Ferritin 56.30 ng/mL (11.1-264) Total Bilirubin 0.6 mg/dL (0.2-1.3) AST 16 L U/L (17-59) ALT 14 U/L (6-50) Alkaline Phosphatase 119 U/L (38-126) C-Reactive Protein 1.8 H mg/dL (<1.0) Total Protein 8.0 g/dL (6.3-8.2) Albumin 3.7 g/dL (3.5-5.1) Vitamin B12 789.0 pg/mL (239-931) Folate > 20.0 H ng/mL (2.76->20) TSH (Reflex) 3.440 uIU/mL (0.465-4.68) Nasal MRSA (PCR) Influenza A (RT-PCR) Influenza B (RT-PCR) RSV (RT-PCR) SARS-CoV-2 RNA (RT-PCR) Blood Type A Negative Antibody Screen Negative Crossmatch See Detail 08/25/24 08/25/24 08/26/24 20:48 22:33 05:47 WBC 10.6 H K/mm3 (4.5-10.0) RBC 3.18 L M/mm3 (4.6-6.20) Hgb 10.3 L D g/dL 9.7 L g/dL (14.0-18.0) (14.0-18.0) Hct 33.1 L % 32.0 L % (42.0-52.0) (42.0-52.0) MCV 100.6 H fl (80-100) MCH 30.5 pg (26-34) MCHC 30.3 L g/dl (32-36) RDW 15.1 H % (11.5-14.5) Plt Count 346 k/mm3 (150-375) MPV 9.5 fl (7.4-10.4) Immature Gran % (Auto) 0.5 % (0-0.5) Neut % (Auto) 81.9 H % (45.5-73.1) Lymph % (Auto) 8.2 L % (18.3-44.2) [place] % (Auto) 6.9 % (2.6-8.5) Eos % (Auto) 1.6 % (0-4.4) Baso % (Auto) 0.9 % (0.2-1.2) Lymph # (Auto) 0.87 L K/mm3 (0.9-3.2) [place] # (Auto) 0.7 H K/mm3 (0.1-0.6) Eos # (Auto) 0.2 K/mm3 (0-0.3) Baso # (Auto) 0.1 K/mm3 (0.0-0.1) Abs Immat Gran (auto) 0.05 H K/mm3 (0.00-0.031) Absolute Neuts (auto) 8.7 H K/mm3 (1.3-6.7) Absolute Nucleated RBC 0.000 K/mm3 (0.0-0.012) Band Neutrophils % Nucleated RBC % 0.0 % (0.0-0.2) Platelet Estimate Hypochromasia Ovalocytes Schistocytes PT INR APTT Sodium 141 mmol/L (137-145) Potassium 4.6 mmol/L (3.4-5.0) Chloride 107 mmol/L (98-107) Carbon Dioxide 27 mmol/L (22-30) Anion Gap 7 mmol/L (4-12) BUN 31 H mg/dL (9-20) Creatinine 1.86 H mg/dL (0.7-1.3) Estim Creat Clear Calc 49 ml/min Estimated GFR 37 L (59 - ) Glucose 107 mg/dL (65-110) POC Capillary Glucose 96 mg/dl (65-105) Lactic Acid Calcium 10.1 mg/dL (8.4-10.2) Iron TIBC % Saturation Ferritin Total Bilirubin 0.7 mg/dL (0.2-1.3) AST 23 U/L (17-59) ALT 12 U/L (6-50) Alkaline Phosphatase 107 U/L (38-126) C-Reactive Protein Total Protein 7.0 g/dL (6.3-8.2) Albumin 3.5 g/dL (3.5-5.1) Vitamin B12 Folate TSH (Reflex) Nasal MRSA (PCR) Influenza A (RT-PCR) Influenza B (RT-PCR) RSV (RT-PCR) SARS-CoV-2 RNA (RT-PCR) Blood Type Antibody Screen Crossmatch 08/26/24 08/26/24 08/26/24 06:56 07:58 10:50 WBC RBC Hgb 9.2 L g/dL (14.0-18.0) Hct 29.9 L % (42.0-52.0) MCV MCH MCHC RDW Plt Count MPV Immature Gran % (Auto) Neut % (Auto) Lymph % (Auto) [place] % (Auto) Eos % (Auto) Baso % (Auto) Lymph # (Auto) [place] # (Auto) Eos # (Auto) Baso # (Auto) Abs Immat Gran (auto) Absolute Neuts (auto) Absolute Nucleated RBC Band Neutrophils % Nucleated RBC % Platelet Estimate Hypochromasia Ovalocytes Schistocytes PT INR APTT Sodium Potassium Chloride Carbon Dioxide Anion Gap BUN Creatinine Estim Creat Clear Calc Estimated GFR Glucose POC Capillary Glucose 95 mg/dl (65-105) Lactic Acid Calcium Iron TIBC % Saturation Ferritin Total Bilirubin AST ALT Alkaline Phosphatase C-Reactive Protein Total Protein Albumin Vitamin B12 Folate TSH (Reflex) Nasal MRSA (PCR) Detected A* (NOT DETECTE) Influenza A (RT-PCR) Negative (Negative) Influenza B (RT-PCR) Negative (Negative) RSV (RT-PCR) Negative (Negative) SARS-CoV-2 RNA (RT-PCR) Positive A (Negative) Blood Type Antibody Screen Crossmatch 08/26/24 11:57 WBC RBC Hgb Hct MCV MCH MCHC RDW Plt Count MPV Immature Gran % (Auto) Neut % (Auto) Lymph % (Auto) [place] % (Auto) Eos % (Auto) Baso % (Auto) Lymph # (Auto) [place] # (Auto) Eos # (Auto) Baso # (Auto) Abs Immat Gran (auto) Absolute Neuts (auto) Absolute Nucleated RBC Band Neutrophils % Nucleated RBC % Platelet Estimate Hypochromasia Ovalocytes Schistocytes PT INR APTT Sodium Potassium Chloride Carbon Dioxide Anion Gap BUN Creatinine Estim Creat Clear Calc Estimated GFR Glucose POC Capillary Glucose 97 mg/dl (65-105) Lactic Acid Calcium Iron TIBC % Saturation Ferritin Total Bilirubin AST ALT Alkaline Phosphatase C-Reactive Protein Total Protein Albumin Vitamin B12 Folate TSH (Reflex) Nasal MRSA (PCR) Influenza A (RT-PCR) Influenza B (RT-PCR) RSV (RT-PCR) SARS-CoV-2 RNA (RT-PCR) Blood Type Antibody Screen Crossmatch Patient hx anesthesia problems: none Family hx anesthesia problems: none Results Review: All pre-operative results and documents have been reviewed as part of the pre- operative evaluation. [facility] Past Medical History Medical History COVID Occult blood in stools Acute on chronic anemia Cervical radiculopathy at C6 Right-sided cerebrovascular accident (CVA) Cellulitis of right lower extremity Stasis dermatitis Seasonal allergies Type 2 diabetes mellitus Diabetic foot ulcer Asthma Folate deficiency Hyperlipidemia Uncontrolled hypertension Bilateral cataracts Maturing Diabetic peripheral neuropathy Dyslipidemia Parkinsons disease Kidney stones Depression Gout Essential hypertension Anxiety BPH loc w urin obs/LUTS Chronic atrial fibrillation Coronary artery disease involving mi'kmaq heart without angina pectoris Surgical History Surgical History History of bilateral carpal tunnel release S/P cubital tunnel release Hx of tonsillectomy History of permanent cardiac pacemaker placement (~2015) [place] History of heart artery stent (~2008) Family History Family History Mother Family history of blood dyscrasia Grandparent Alcoholism Social History Social History Social History: He is and lives alone. He has 4 children 1 of which d ied in a motor vehicle collision. He used to work for a [employer] but is now on disability. He smokes about 10 cigarettes a day and has smoked since his early 20s. He reports he quit smoking March 2024. He denies any significant alcohol use. Code status: DNR/DNI (per patient request) Surrogate decision maker: Enedelia Villalpando (friend) Smoking packs per day: 0.5 Smoking cigarettes per day: 10.0 Years smoked: 25 Smoking pack-years: 12.50 Smoking status: Former smoker Second hand tobacco smoke exposure: No Alcohol intake: current Alcohol use details: Occasionally Substance use: never Substance use type: does not use Do You Feel Safe in your Home?: Yes Lack of Transportation: No Lack of Food: Never True Current Housing: I Have Housing Concerned About Future Housing: No Difficulty Paying Gas/Electric Bills: YES Difficulty Paying for Meds: No Currently Unemployed: No Education: High School Diploma/GED Difficulty w/ Childcare or Family Care: No Spiritual care concerns: No Anes - Eval Final PreProcedure Day of Procedure 08/26/24 12:45 Patient weight: obese Heart: regular rate and rhythm Lungs: decreased breath sounds ASA classification: IV Emergent: no Anesthetic plan: proceed Anesthesia type and monitoring: general GIVS and standard monitoring Results Review: All pre-operative results and documents have been reviewed as part of the pre- operative evaluation. Informed Consent: The patient's anesthetic plan and its attendant risks and benefits were discussed with the patient/family/POA. Questions were solicited and answers provided to the satisfaction of the patient/family/POA.
[2024-08-26] MEDS: LACTATED RINGERS 1,000 ML 150 ML IV CONT (13:04)
[2024-08-26 13:08] LABS: Glucose Point of Care 79 mg/dl (65-105)
--- NOTE | 2024-08-26 13:22 | SUR.OPER ---
EGD START 1309, END 1313 COLONOSCOPY START 1319, END 1320
--- NOTE | 2024-08-26 13:27 | P.PNGI_ITS ---
Progress Note: A&P Assessment and Plan (1) Occult blood in stools: Code(s): R19.5 - Other fecal abnormalities Status: Acute (2) Iron deficiency anemia: Code(s): D50.9 - Iron deficiency anemia, unspecified Status: Acute Assessment and Plan: Iron deficiency anemia not completely studied. Colonoscopy prep needs to be optimized, the patient is a diabetic, post CVA, therefore is a high risk for poor prep. Suggest a 2 day prep starting on Thursday, with split dose Miralax 117 grams : Thursday evening (8 pm) , Thursday morning (5 am) , Thursday evening (8 pm) and Thursday Morning (5 am). Patient should be on clear liquids the entire day Thursday and clear liquid diet for diabetics starting today. Plan See above Subjective Date/time seen: 08/26/24 13:27 Interval history: See EGD and attempted colonoscopy report. Gastric and duodenal erosions might explain anemia, however colonoscopy is still needed, but there was no prep Exam Narrative: Unchanged from previous Objective Data Vital Signs Vital Signs: Vital Signs - 24 hr 08/25/24 14:18 08/25/24 14:18 08/25/24 14:51 Temperature 97.6 F Pulse Rate 81 Respiratory Rate 26 H 18 Blood Pressure 125/47 L Pulse Oximetry 97 95 Oxygen Delivery Nasal Cannula Nasal Cannula Oxygen Flow Rate 3 3 2 08/25/24 15:14 08/25/24 15:16 08/25/24 15:31 Temperature Pulse Rate 80 80 87 Respiratory Rate 21 H 19 19 Blood Pressure 99/60 L 105/62 95/57 L Pulse Oximetry 96 96 97 Oxygen Delivery Oxygen Flow Rate 08/25/24 15:46 08/25/24 15:56 08/25/24 16:00 Temperature Pulse Rate 80 80 80 Respiratory Rate 22 H 18 14 Blood Pressure 105/60 105/60 Pulse Oximetry 100 98 98 Oxygen Delivery Oxygen Flow Rate 08/25/24 16:01 08/25/24 16:07 08/25/24 17:11 Temperature Pulse Rate 80 80 80 Respiratory Rate 19 18 21 H Blood Pressure 86/53 L 99/53 L 106/50 L Pulse Oximetry 98 96 95 Oxygen Delivery Oxygen Flow Rate 08/25/24 17:16 08/25/24 17:54 08/25/24 17:56 Temperature Pulse Rate 80 80 80 Respiratory Rate 20 17 20 Blood Pressure 99/66 L 87/65 L 94/56 L Pulse Oximetry 93 96 Oxygen Delivery Oxygen Flow Rate 08/25/24 18:01 08/25/24 18:20 08/25/24 18:39 Temperature 98.5 F 98.7 F Pulse Rate 80 80 80 Respiratory Rate 20 20 16 Blood Pressure 91/58 L 98/60 L 98/60 L Pulse Oximetry 97 97 98 Oxygen Delivery Oxygen Flow Rate 08/25/24 18:51 08/25/24 19:39 08/25/24 19:39 Temperature 98.8 F 98.8 F Pulse Rate 80 80 80 Respiratory Rate 18 16 16 Blood Pressure 110/71 106/62 106/62 Pulse Oximetry 99 100 100 Oxygen Delivery Oxygen Flow Rate 08/25/24 20:00 08/25/24 21:11 08/26/24 05:47 Temperature 97.7 F 99.4 F Pulse Rate 80 80 Respiratory Rate 16 18 Blood Pressure 103/47 L 124/68 Pulse Oximetry 100 95 96 Oxygen Delivery Nasal Cannula Oxygen Flow Rate 2 08/26/24 10:10 08/26/24 13:02 Temperature Pulse Rate 80 Respiratory Rate 18 Blood Pressure 108/61 Pulse Oximetry 96 96 Oxygen Delivery Nasal Cannula Nasal Cannula Oxygen Flow Rate 2 3 Intake/Output Intake/Output: Intake & Output 08/23/24 08/24/24 08/25/24 08/26/24 23:59 23:59 23:59 23:59 Intake Total 2350 550 Balance 2350 550 Meds/Results Medications: Active Medications Generic Name Dose Route Start Last Admin Trade Name Freq PRN Reason Stop Dose Admin Acetaminophen 650 mg 08/25/24 18:34 08/26/24 12:06 Acetaminophen 325 Mg Tablet PO 650 mg Q6H PRN Administration Mild Pain (1-3) or Fever Albuterol 1 puff 08/25/24 22:51 Albuterol Sulfate (*Sp) Aerosol 1 Puff INHALATION Q4H PRN shortness of breath or wheezing Albuterol/Ipratropium 3 ml 08/25/24 18:28 Ipratropium 0.5 Mg/Albuterol Sulfate 2.5 Mg Ampul.Neb 3 Ml INHALATION Q6HRT PRN Shortness Of Breath Or Wheezing Allopurinol 200 mg 08/26/24 08:00 08/26/24 08:52 Allopurinol 100 Mg Tablet PO 200 mg DAILY@0800 JHOANA Administration Aspirin 325 mg 08/26/24 08:00 08/26/24 08:53 Aspirin 325 Mg Tablet PO 325 mg DAILY@0800 JHOANA Administration Atorvastatin Calcium 40 mg 08/26/24 09:00 08/26/24 08:53 Atorvastatin 40 Mg Tablet PO 40 mg DAILY JHOANA Administration Benzonatate 100 mg 08/25/24 18:28 Benzonatate 100 Mg Capsule PO TID PRN Cough Dextrose 12.5 gm 08/25/24 18:31 Dextrose 50% 25 Gm/50 Ml Syringe IV PUSH PRN PRN Hypoglycemia Protocol Folic Acid 1 mg 08/26/24 09:00 08/26/24 08:53 Folic Acid 1 Mg Tablet PO 1 mg DAILY JHOANA Administration Gabapentin 600 mg 08/26/24 09:00 08/26/24 12:06 Gabapentin 300 Mg Capsule PO 600 mg TID JHOANA Administration Glucagon 1 mg 08/25/24 18:31 Glucagon For Inj 1 Mg Vial IM PRN PRN Hypoglycemia Protocol Glucose 15 gm 08/25/24 18:31 Glucose Oral Gel 15 Gm Of Glucse In 37.5 Gm Tube PO PRN PRN Hypoglycemia Protocol Guaifenesin 600 mg 08/25/24 21:00 08/26/24 08:53 Guaifenesin 12 Hr 600 Mg Tabcr PO 600 mg Q12HR JHOANA Administration Sodium Chloride 1,000 mls @ 100 mls/hr 08/25/24 16:55 08/26/24 00:52 Normal Saline Iv IV CONT 100 mls/hr .Q10H JHOANA Administration Ceftriaxone Sodium 1 gm in 50 mls @ 100 mls/hr 08/25/24 18:00 08/25/24 19:25 Rocephin 1 Gm/Ns 50 Ml IVPB 100 mls/hr Q24H JHOANA Administration Azithromycin 500 mg in 250 mls @ 250 mls/hr 08/25/24 18:00 08/26/24 00:56 Zithromax IVPB Not Given Q24H JHOANA Dextrose 1,000 mls @ 100 mls/hr 08/25/24 18:31 Dextrose 5% 1,000 Ml IVPB PRN PRN Hypoglycemia Protocol Lactated Ringer's 1,000 mls @ 150 mls/hr 08/26/24 13:05 08/26/24 13:23 Lr - Lactated Ringers Iv IV CONT 150 mls/hr .Q6H40M [facility] Infusion Insulin Aspart 4 - 8 units 08/26/24 08:00 08/26/24 12:06 Insulin Aspart (*Bkc) 100 Units/Ml SUB-Q Not Given TIDWM [facility] Protocol Insulin Glargine 22 units 08/26/24 21:00 Insulin Glargine (*Bkc) 100 Units/Ml SUB-Q HS JHOANA Levetiracetam 1,000 mg 08/25/24 23:10 08/26/24 08:53 Levetiracetam 500 Mg Tablet PO 1,000 mg Q12HR JHOANA Administration Loratadine 10 mg 08/26/24 09:00 08/26/24 08:53 Loratadine 10 Mg Tablet PO 10 mg QAM JHOANA Administration Montelukast Sodium 10 mg 08/25/24 23:10 08/26/24 00:53 Montelukast Sodium 10 Mg Tablet PO 10 mg HS JHOANA Administration Potassium Chloride 20 meq 08/26/24 08:00 08/26/24 08:53 Potassium Chloride 20 Meq Er Tablet PO 20 meq DAILY@0800 [facility] Administration Rivaroxaban 20 mg 08/26/24 17:00 Rivaroxaban 20 Mg Tablet PO DAILY@1700 [facility] Tamsulosin HCl 0.4 mg 08/25/24 23:15 08/26/24 00:53 Tamsulosin Hcl 0.4 Mg Capsule PO 0.4 mg QHS JHOANA Administration Valsartan 40 mg 08/26/24 09:00 08/26/24 08:54 Valsartan 40 Mg Tablet PO 40 mg DAILY JHOANA Administration Radiology Results: ITS Impressions Chest X-Ray 08/25/24 15:30 IMPRESSION: Left lower lobe pneumonia. Bilateral pneumonitis versus pulmonary edema. Labs Labs: Laboratory Results - last 24 hr 08/25/24 08/25/24 08/25/24 15:42 16:00 16:48 WBC 14.6 H RBC 2.05 L Hgb 6.4 L* D Hct 21.4 L MCV 104.4 H MCH 31.2 MCHC 29.9 L RDW 14.6 H Plt Count 263 MPV 9.4 Immature Gran % (Auto) 0.8 H Neut % (Auto) 89.9 H Lymph % (Auto) 3.3 L [place] % (Auto) 3.3 Eos % (Auto) 2.2 Baso % (Auto) 0.5 Lymph # (Auto) 0.48 L [place] # (Auto) 0.5 Eos # (Auto) 0.3 Baso # (Auto) 0.1 Abs Immat Gran (auto) 0.12 H Absolute Neuts (auto) 13.2 H Absolute Nucleated RBC 0.000 Band Neutrophils % Not Reportable Nucleated RBC % 0.0 Platelet Estimate Adequate Hypochromasia 1+ Ovalocytes 1+ Schistocytes None seen PT 22.0 H INR 1.9 APTT 42.6 H Sodium 140 Potassium 4.5 Chloride 104 Carbon Dioxide 28 Anion Gap 8 BUN 30 H D Creatinine 1.90 H Estim Creat Clear Calc 48 Estimated GFR 36 L Glucose 130 H POC Capillary Glucose Lactic Acid 1.1 Calcium 10.4 H Iron 25 L TIBC 183 L % Saturation 14 L Ferritin 56.30 Total Bilirubin 0.6 AST 16 L ALT 14 Alkaline Phosphatase 119 C-Reactive Protein 1.8 H Total Protein 8.0 Albumin 3.7 Vitamin B12 789.0 Folate > 20.0 H TSH (Reflex) 3.440 Nasal MRSA (PCR) Influenza A (RT-PCR) Influenza B (RT-PCR) RSV (RT-PCR) SARS-CoV-2 RNA (RT-PCR) Blood Type A Negative Antibody Screen Negative Crossmatch See Detail 08/25/24 08/25/24 08/26/24 20:48 22:33 05:47 WBC 10.6 H RBC 3.18 L Hgb 10.3 L D 9.7 L Hct 33.1 L 32.0 L MCV 100.6 H MCH 30.5 MCHC 30.3 L RDW 15.1 H Plt Count 346 MPV 9.5 Immature Gran % (Auto) 0.5 Neut % (Auto) 81.9 H Lymph % (Auto) 8.2 L [place] % (Auto) 6.9 Eos % (Auto) 1.6 Baso % (Auto) 0.9 Lymph # (Auto) 0.87 L [place] # (Auto) 0.7 H Eos # (Auto) 0.2 Baso # (Auto) 0.1 Abs Immat Gran (auto) 0.05 H Absolute Neuts (auto) 8.7 H Absolute Nucleated RBC 0.000 Band Neutrophils % Nucleated RBC % 0.0 Platelet Estimate Hypochromasia Ovalocytes Schistocytes PT INR APTT Sodium 141 Potassium 4.6 Chloride 107 Carbon Dioxide 27 Anion Gap 7 BUN 31 H Creatinine 1.86 H Estim Creat Clear Calc 49 Estimated GFR 37 L Glucose 107 POC Capillary Glucose 96 Lactic Acid Calcium 10.1 Iron TIBC % Saturation Ferritin Total Bilirubin 0.7 AST 23 ALT 12 Alkaline Phosphatase 107 C-Reactive Protein Total Protein 7.0 Albumin 3.5 Vitamin B12 Folate TSH (Reflex) Nasal MRSA (PCR) Influenza A (RT-PCR) Influenza B (RT-PCR) RSV (RT-PCR) SARS-CoV-2 RNA (RT-PCR) Blood Type Antibody Screen Crossmatch 08/26/24 08/26/24 08/26/24 06:56 07:58 10:50 WBC RBC Hgb 9.2 L Hct 29.9 L MCV MCH MCHC RDW Plt Count MPV Immature Gran % (Auto) Neut % (Auto) Lymph % (Auto) [place] % (Auto) Eos % (Auto) Baso % (Auto) Lymph # (Auto) [place] # (Auto) Eos # (Auto) Baso # (Auto) Abs Immat Gran (auto) Absolute Neuts (auto) Absolute Nucleated RBC Band Neutrophils % Nucleated RBC % Platelet Estimate Hypochromasia Ovalocytes Schistocytes PT INR APTT Sodium Potassium Chloride Carbon Dioxide Anion Gap BUN Creatinine Estim Creat Clear Calc Estimated GFR Glucose POC Capillary Glucose 95 Lactic Acid Calcium Iron TIBC % Saturation Ferritin Total Bilirubin AST ALT Alkaline Phosphatase C-Reactive Protein Total Protein Albumin Vitamin B12 Folate TSH (Reflex) Nasal MRSA (PCR) Detected A* Influenza A (RT-PCR) Negative Influenza B (RT-PCR) Negative RSV (RT-PCR) Negative SARS-CoV-2 RNA (RT-PCR) Positive A Blood Type Antibody Screen Crossmatch 08/26/24 08/26/24 11:57 13:06 WBC RBC Hgb Hct MCV MCH MCHC RDW Plt Count MPV Immature Gran % (Auto) Neut % (Auto) Lymph % (Auto) [place] % (Auto) Eos % (Auto) Baso % (Auto) Lymph # (Auto) [place] # (Auto) Eos # (Auto) Baso # (Auto) Abs Immat Gran (auto) Absolute Neuts (auto) Absolute Nucleated RBC Band Neutrophils % Nucleated RBC % Platelet Estimate Hypochromasia Ovalocytes Schistocytes PT INR APTT Sodium Potassium Chloride Carbon Dioxide Anion Gap BUN Creatinine Estim Creat Clear Calc Estimated GFR Glucose POC Capillary Glucose 97 79 Lactic Acid Calcium Iron TIBC % Saturation Ferritin Total Bilirubin AST ALT Alkaline Phosphatase C-Reactive Protein Total Protein Albumin Vitamin B12 Folate TSH (Reflex) Nasal MRSA (PCR) Influenza A (RT-PCR) Influenza B (RT-PCR) RSV (RT-PCR) SARS-CoV-2 RNA (RT-PCR) Blood Type Antibody Screen Crossmatch
[2024-08-26 13:51] LABS: Glucose Point of Care 83 mg/dl (65-105)
--- NOTE | 2024-08-26 17:04 | PM.IMPN ---
Progress Note: A&P Assessment and Plan (1) Anemia: Qualifiers: Anemia type: unspecified type Qualified Code(s): D64.9 - Anemia, unspecified Code(s): D64.9 - Anemia, unspecified Status: Acute Assessment and Plan: - acute on chronic - Hgb 6.4 previously 10.8 on 06/07/2024 range in 2023: 7.3 - 10.8 - add iron, TIBC, ferritin, B12, folic acid, and TSH - transfuse if <7 plan for 1u of PRBC today, 08/25 - trend H&H - stool occult/NII positive, GI consulted (2) Pneumonia: Qualifiers: Laterality: left Lung location: lower lobe of lung Pneumonia type: due to unspecified organism Qualified Code(s): J18.9 - Pneumonia, unspecified organism Code(s): J18.9 - Pneumonia, unspecified organism Status: Acute Assessment and Plan: - CXR: Left lower lobe pneumonia. Bilateral pneumonitis versus pulmonary edema. - risk factors and complicating factors: [place] resident - started on CAP tx: Ceftriaxone and azithromycin on 08/25 - check MRSA PCR and sputum culture (if obtainable) - check viral PCR - supportive care: DuoNeb p.r.n., Mucinex rolan, Tylenol p.r.n., Tessalon Perles p.r.n. - currently on supplemental O2: 2L NC, baseline requirement? (3) Acute kidney injury: Code(s): N17.9 - Acute kidney failure, unspecified Status: Acute Assessment and Plan: - creatinine 1.9 and GFR 36, previously 1.2 and normal GFR on 06/07/2024 - check CK, urine sodium, protein/creatinine, urea, and UA - IV fluids: 1L bolus -> 100 mL/hr - monitor I&Os closely, CHF hx - stop asa inhibitors and diuretics as appropriate - nephrology consultation, awaiting recs (4) CHF (congestive heart failure): Qualifiers: Heart failure chronicity: acute Heart failure type: unspecified Qualified Code(s): I50.9 - Heart failure, unspecified Code(s): I50.9 - Heart failure, unspecified Status: Chronic Assessment and Plan: - most recent echo (04/2024): Technically difficult study, systolic function mildly reduced with estimated EF at 40-45%, moderately increased LV wall thickness, mild MV and TV regurgitation, diastolic function is indeterminate. - continue Lasix 40 mg p.o. daily - monitor I&Os - trend renal function (5) Type 2 diabetes mellitus: Code(s): E11.9 - Type 2 diabetes mellitus without complications Status: Chronic Assessment and Plan: - hypoglycemia protocol - POC blood glucose ACHS - correct regimen ordered - high dose TIDWM, based off BMI - A1C 8.4% on 05/04/2024, update (6) Hypertension: Qualifiers: Hypertension type: primary hypertension Qualified Code(s): I10 - Essential (primary) hypertension Code(s): I10 - Essential (primary) hypertension Status: Chronic Assessment and Plan: - chronic, intermittently soft since arrival. Currently 98/60. - hold home medications - monitor Plan 63 y/o M presents here with hypotension and weakness with PMH of CHF (EF 40-45% 04/2024), CVA, diabetes, hyperlipidemia, hypertension, Parkinson's disease, depression, gout, HTN, BPH, chronic AFib, coronary artery disease. The patient presents here from [facility], [place] via EMS for further evaluation of low blood pressure and weakness. He reports he was attending physical therapy when he stood up and became very weak and shaky. The patient's blood pressure was checked which showed it was low, no exact number reported. EMS was contacted and upon their arrival the patient was hypotensive with a systolic in the 80s per the ED provider who spoke with EMS. He currently reports the low blood pressure and weakness are accompanied by shortness of breath, cough (deep, dry), chills. He denies fever, nausea, vomiting, or diarrhea. Initial lab work showed a hemoglobin of 6.4 (baseline in 2023 was mid 7). He reports fatigue (worsened in the last 4-5 days). He reports he does not look at his stool and is unsure if his stool has been black/tarry. He is currently on Xarelto. Initial VS at presentation: 97.6? F, HR 81, R 26, 125/47, and 97% on 3L NC. ED workup showed: WBC 14.6, hemoglobin 6.4, INR 1.9, creatinine 1.9 and GFR 36 (previously 1.2 and GFR >60, May 2024), CRP 1.8. CXR showed left lower lobe pneumonia, bilateral pneumonitis versus pulmonary edema. ACUTE ON CHRONIC ANEMIA PREVIOUS HEMOGLOBIN OF 10.8 ON MAY 2024. HEMOGLOBIN 6.4 ON ADMISSION. STATUS POST TRANSFUSION STOOL OCCULT BLOOD POSITIVE GI CONSULTED FOBT POSITIVE STOOL SUGGESTIVE OF GI BLEED STATUS POST EGD WITH MILD LOCALIZED ACUTE EROSIVE GASTRITIS IN THE ANTRUM MODERATE LOCALIZED EROSIVE DUODENITIS IN THE DUODENAL BULB. CONTINUE PPI. COLONOSCOPY ATTEMPTED HOWEVER NOT PERFORMED DUE TO NO PREPPED. IRON STUDIES WITH LOW IRON AND LOW IRON SATURATION FERRITIN OF 56 TSH NORMAL. B12 NORMAL AT 789 FOLATE MORE THAN 20 LEFT LOWER LOBE PNEUMONIA PER CHEST X-RAY DOES REPORT SOME COUGH. STARTED ON CEFTRIAXONE AND AZITHROMYCIN. NASAL MRSA CAME BACK POSITIVE. PCR POSITIVE FOR COVID WELL. CONTINUE SUPPORTIVE TREATMENT COVID POSITIVE HYPOXIA FAIRLY STABLE. HAS HAVE RENAL DYSFUNCTION. WILL AVOID REMDESIVIR. WILL HOLD OFF ON DEXAMETHASONE WITH ACUTE ANEMIA AND GASTRIC EROSIONS UNLESS WORSENS NANY CREATININE 1.9 BASELINE 1.2. RECEIVE SOME IV FLUID IN THE ER HOLD ASA INHIBITOR AND DIURETICS NEPHROLOGY CONSULTED HISTORY OF CVA MAY 2024 CONGESTIVE HEART FAILURE EF 40-45% 04/2024 ON LASIX AT HOME DIABETES ON INSULIN A1C 8.4% ON 04/2024 HYPERLIPIDEMIA HYPERTENSION: BLOOD PRESSURE SOFT ON ARRIVAL HOLD BLOOD PRESSURE MEDICATION PARKINSON'S DISEASE HISTORY OF OROPHARYNGEAL DYSPHAGIA DEPRESSION GOUT BPH CHRONIC AFIB CORONARY ARTERY DISEASE Diet: Diabetic, GI Prophylaxis: Pantoprazole IV DVT Prophylaxis: SCDs XARELTO ON HOLD DUE TO ANEMIA Lines: Peripheral Code Status: Full code Subjective Date/time seen: 08/26/24 17:04 Interval history: Feels better. Presented with dizziness during therapy. This has resolved. He underwent EGD and colonoscopy today Review of Systems Review of Systems: All systems reviewed & are unremarkable except as noted in HPI and below Exam Narrative: GENERAL APPEARANCE: WELL-DEVELOPED, WELL-NOURISHED SKIN: NORMAL COLOR, LEFT HEEL 0.5 X0.5 CM SUPERFICIAL ULCER AT THE HEEL AREA, wrapped with dressing, NO DISCHARGE, NO ERYTHEMA, NO LOCALIZED TENDERNESS HEAD: NORMOCEPHALIC, NONTRAUMATIC EYES: CLEAR CONJUNCTIVA ENT: OROPHARYNX NORMAL, EARS NORMAL, NOSE NORMAL, 3 L NASAL CANNULA ON NECK: SUPPLE, NONTENDER CHEST AND RESPIRATORY: AIRWAY PATENT, NO RESPIRATORY DISTRESS, NO ACCESSORY MUSCLE USE, COARSE BREATH SOUNDS BILATERALLY HEART: REGULAR RATE/RHYTHM ABDOMEN: SOFT, NONTENDER, NO ORGANOMEGALY, QUIET BOWEL SOUNDS VASCULAR: NORMAL PERIPHERAL PULSES, NORMAL CAPILLARY REFILL. MUSCULOSKELETAL: RIGHT BELOW-KNEE AMPUTATION, NO SIGNS OF INFECTION NEUROLOGIC: ALERT AND ORIENTED ? 3 LEFT-SIDED WEAKNESS FROM PREVIOUS STROKE Objective Data Vital Signs Vital Signs: Vital Signs - 24 hr 08/25/24 17:11 08/25/24 17:16 08/25/24 17:54 Temperature Pulse Rate 80 80 80 Respiratory Rate 21 H 20 17 Blood Pressure 106/50 L 99/66 L 87/65 L Pulse Oximetry 95 93 Oxygen Delivery Oxygen Flow Rate 08/25/24 17:56 08/25/24 18:01 08/25/24 18:20 Temperature 98.5 F Pulse Rate 80 80 80 Respiratory Rate 20 20 20 Blood Pressure 94/56 L 91/58 L 98/60 L Pulse Oximetry 96 97 97 Oxygen Delivery Oxygen Flow Rate 08/25/24 18:39 08/25/24 18:51 08/25/24 19:39 Temperature 98.7 F 98.8 F Pulse Rate 80 80 80 Respiratory Rate 16 18 16 Blood Pressure 98/60 L 110/71 106/62 Pulse Oximetry 98 99 100 Oxygen Delivery Oxygen Flow Rate 08/25/24 19:39 08/25/24 20:00 08/25/24 21:11 Temperature 98.8 F 97.7 F Pulse Rate 80 80 Respiratory Rate 16 16 Blood Pressure 106/62 103/47 L Pulse Oximetry 100 100 95 Oxygen Delivery Nasal Cannula Oxygen Flow Rate 2 08/26/24 05:47 08/26/24 10:10 08/26/24 13:02 Temperature 99.4 F Pulse Rate 80 80 Respiratory Rate 18 18 Blood Pressure 124/68 108/61 Pulse Oximetry 96 96 96 Oxygen Delivery Nasal Cannula Nasal Cannula Oxygen Flow Rate 2 3 08/26/24 13:26 08/26/24 13:36 08/26/24 13:46 Temperature Pulse Rate 80 80 80 Respiratory Rate 20 20 18 Blood Pressure 81/56 L 91/61 L 102/64 Pulse Oximetry 91 90 95 Oxygen Delivery Nasal Cannula Nasal Cannula Nasal Cannula Oxygen Flow Rate 3 6 4 Intake/Output Intake/Output: Intake & Output 08/23/24 08/24/24 08/25/24 08/26/24 23:59 23:59 23:59 23:59 Intake Total 2350 600 Balance 2350 600 Meds/Results Medications: Active Medications Generic Name Dose Route Start Last Admin Trade Name Freq PRN Reason Stop Dose Admin Acetaminophen 650 mg 08/25/24 18:34 08/26/24 12:06 Acetaminophen 325 Mg Tablet PO 650 mg Q6H PRN Administration Mild Pain (1-3) or Fever Albuterol 1 puff 08/25/24 22:51 Albuterol Sulfate (*Sp) Aerosol 1 Puff INHALATION Q4H PRN shortness of breath or wheezing Albuterol/Ipratropium 3 ml 08/25/24 18:28 Ipratropium 0.5 Mg/Albuterol Sulfate 2.5 Mg Ampul.Neb 3 Ml INHALATION Q6HRT PRN Shortness Of Breath Or Wheezing Allopurinol 200 mg 08/26/24 08:00 08/26/24 08:52 Allopurinol 100 Mg Tablet PO 200 mg DAILY@0800 ORLAN Administration Aspirin 325 mg 08/26/24 08:00 08/26/24 08:53 Aspirin 325 Mg Tablet PO 325 mg DAILY@0800 ROLAN Administration Atorvastatin Calcium 40 mg 08/26/24 09:00 08/26/24 08:53 Atorvastatin 40 Mg Tablet PO 40 mg DAILY ROLAN Administration Benzonatate 100 mg 08/25/24 18:28 Benzonatate 100 Mg Capsule PO TID PRN Cough Dextrose 12.5 gm 08/25/24 18:31 Dextrose 50% 25 Gm/50 Ml Syringe IV PUSH PRN PRN Hypoglycemia Protocol Folic Acid 1 mg 08/26/24 09:00 08/26/24 08:53 Folic Acid 1 Mg Tablet PO 1 mg DAILY ROLAN Administration Gabapentin 600 mg 08/26/24 09:00 08/26/24 12:06 Gabapentin 300 Mg Capsule PO 600 mg TID ROLAN Administration Glucagon 1 mg 08/25/24 18:31 Glucagon For Inj 1 Mg Vial IM PRN PRN Hypoglycemia Protocol Glucose 15 gm 08/25/24 18:31 Glucose Oral Gel 15 Gm Of Glucse In 37.5 Gm Tube PO PRN PRN Hypoglycemia Protocol Guaifenesin 600 mg 08/25/24 21:00 08/26/24 08:53 Guaifenesin 12 Hr 600 Mg Tabcr PO 600 mg Q12HR ROLAN Administration Sodium Chloride 1,000 mls @ 100 mls/hr 08/25/24 16:55 08/26/24 00:52 Normal Saline Iv IV CONT 100 mls/hr .Q10H ROLAN Administration Ceftriaxone Sodium 1 gm in 50 mls @ 100 mls/hr 08/25/24 18:00 08/25/24 19:25 Rocephin 1 Gm/Ns 50 Ml IVPB 100 mls/hr Q24H ROLAN Administration Azithromycin 500 mg in 250 mls @ 250 mls/hr 08/25/24 18:00 08/26/24 00:56 Zithromax IVPB Not Given Q24H ROLAN Dextrose 1,000 mls @ 100 mls/hr 08/25/24 18:31 Dextrose 5% 1,000 Ml IVPB PRN PRN Hypoglycemia Protocol Insulin Aspart 4 - 8 units 08/26/24 08:00 08/26/24 17:04 Insulin Aspart (*Bkc) 100 Units/Ml SUB-Q Not Given TIDWM ROLAN Protocol Insulin Glargine 22 units 08/26/24 21:00 Insulin Glargine (*Bkc) 100 Units/Ml SUB-Q HS ROLAN Levetiracetam 1,000 mg 08/25/24 23:10 08/26/24 08:53 Levetiracetam 500 Mg Tablet PO 1,000 mg Q12HR ROLAN Administration Loratadine 10 mg 08/26/24 09:00 08/26/24 08:53 Loratadine 10 Mg Tablet PO 10 mg QAM ROLAN Administration Montelukast Sodium 10 mg 08/25/24 23:10 08/26/24 00:53 Montelukast Sodium 10 Mg Tablet PO 10 mg HS ROLAN Administration Polyethylene Glycol 119 gm 08/28/24 20:00 Polyethylene Glycol 3350 238 Gm Bottle PO 08/29/24 05:01 BID@0500,2000 [facility] Polyethylene Glycol 119 gm 08/27/24 20:00 Polyethylene Glycol 3350 238 Gm Bottle PO 08/28/24 05:01 BID@0500,2000 [facility] Potassium Chloride 20 meq 08/26/24 08:00 08/26/24 08:53 Potassium Chloride 20 Meq Er Tablet PO 20 meq DAILY@0800 ROLAN Administration Rivaroxaban 20 mg 08/26/24 17:00 Rivaroxaban 20 Mg Tablet PO DAILY@1700 [facility] Tamsulosin HCl 0.4 mg 08/25/24 23:15 08/26/24 00:53 Tamsulosin Hcl 0.4 Mg Capsule PO 0.4 mg QHS ROLAN Administration Valsartan 40 mg 08/26/24 09:00 08/26/24 08:54 Valsartan 40 Mg Tablet PO 40 mg DAILY ROLAN Administration Radiology Results: ITS Impressions Chest X-Ray 08/25/24 15:30 IMPRESSION: Left lower lobe pneumonia. Bilateral pneumonitis versus pulmonary edema. Labs Labs: Laboratory Results - last 24 hr 08/25/24 08/25/24 08/25/24 15:42 16:00 16:48 WBC RBC Hgb Hct MCV MCH MCHC RDW Plt Count MPV Immature Gran % (Auto) Neut % (Auto) Lymph % (Auto) [place] % (Auto) Eos % (Auto) Baso % (Auto) Lymph # (Auto) [place] # (Auto) Eos # (Auto) Baso # (Auto) Abs Immat Gran (auto) Absolute Neuts (auto) Absolute Nucleated RBC Nucleated RBC % Sodium Potassium Chloride Carbon Dioxide Anion Gap BUN Creatinine Estim Creat Clear Calc Estimated GFR Glucose POC Capillary Glucose Calcium Iron 25 L TIBC 183 L % Saturation 14 L Ferritin 56.30 Total Bilirubin AST ALT Alkaline Phosphatase Total Protein Albumin Vitamin B12 789.0 Folate > 20.0 H TSH (Reflex) 3.440 Nasal MRSA (PCR) Influenza A (RT-PCR) Influenza B (RT-PCR) RSV (RT-PCR) SARS-CoV-2 RNA (RT-PCR) Blood Type A Negative Antibody Screen Negative Crossmatch See Detail 08/25/24 08/25/24 08/26/24 20:48 22:33 05:47 WBC 10.6 H RBC 3.18 L Hgb 10.3 L D 9.7 L Hct 33.1 L 32.0 L MCV 100.6 H MCH 30.5 MCHC 30.3 L RDW 15.1 H Plt Count 346 MPV 9.5 Immature Gran % (Auto) 0.5 Neut % (Auto) 81.9 H Lymph % (Auto) 8.2 L [place] % (Auto) 6.9 Eos % (Auto) 1.6 Baso % (Auto) 0.9 Lymph # (Auto) 0.87 L [place] # (Auto) 0.7 H Eos # (Auto) 0.2 Baso # (Auto) 0.1 Abs Immat Gran (auto) 0.05 H Absolute Neuts (auto) 8.7 H Absolute Nucleated RBC 0.000 Nucleated RBC % 0.0 Sodium 141 Potassium 4.6 Chloride 107 Carbon Dioxide 27 Anion Gap 7 BUN 31 H Creatinine 1.86 H Estim Creat Clear Calc 49 Estimated GFR 37 L Glucose 107 POC Capillary Glucose 96 Calcium 10.1 Iron TIBC % Saturation Ferritin Total Bilirubin 0.7 AST 23 ALT 12 Alkaline Phosphatase 107 Total Protein 7.0 Albumin 3.5 Vitamin B12 Folate TSH (Reflex) Nasal MRSA (PCR) Influenza A (RT-PCR) Influenza B (RT-PCR) RSV (RT-PCR) SARS-CoV-2 RNA (RT-PCR) Blood Type Antibody Screen Crossmatch 08/26/24 08/26/24 08/26/24 06:56 07:58 10:50 WBC RBC Hgb 9.2 L Hct 29.9 L MCV MCH MCHC RDW Plt Count MPV Immature Gran % (Auto) Neut % (Auto) Lymph % (Auto) [place] % (Auto) Eos % (Auto) Baso % (Auto) Lymph # (Auto) [place] # (Auto) Eos # (Auto) Baso # (Auto) Abs Immat Gran (auto) Absolute Neuts (auto) Absolute Nucleated RBC Nucleated RBC % Sodium Potassium Chloride Carbon Dioxide Anion Gap BUN Creatinine Estim Creat Clear Calc Estimated GFR Glucose POC Capillary Glucose 95 Calcium Iron TIBC % Saturation Ferritin Total Bilirubin AST ALT Alkaline Phosphatase Total Protein Albumin Vitamin B12 Folate TSH (Reflex) Nasal MRSA (PCR) Detected A* Influenza A (RT-PCR) Negative Influenza B (RT-PCR) Negative RSV (RT-PCR) Negative SARS-CoV-2 RNA (RT-PCR) Positive A Blood Type Antibody Screen Crossmatch 08/26/24 08/26/24 08/26/24 11:57 13:06 13:31 WBC RBC Hgb Hct MCV MCH MCHC RDW Plt Count MPV Immature Gran % (Auto) Neut % (Auto) Lymph % (Auto) [place] % (Auto) Eos % (Auto) Baso % (Auto) Lymph # (Auto) [place] # (Auto) Eos # (Auto) Baso # (Auto) Abs Immat Gran (auto) Absolute Neuts (auto) Absolute Nucleated RBC Nucleated RBC % Sodium Potassium Chloride Carbon Dioxide Anion Gap BUN Creatinine Estim Creat Clear Calc Estimated GFR Glucose POC Capillary Glucose 97 79 83 Calcium Iron TIBC % Saturation Ferritin Total Bilirubin AST ALT Alkaline Phosphatase Total Protein Albumin Vitamin B12 Folate TSH (Reflex) Nasal MRSA (PCR) Influenza A (RT-PCR) Influenza B (RT-PCR) RSV (RT-PCR) SARS-CoV-2 RNA (RT-PCR) Blood Type Antibody Screen Crossmatch
[2024-08-26 17:10] LABS: Glucose Point of Care 89 mg/dl (65-105)
[2024-08-26] MEDS: AZITHROMYCIN 500 MG/NS 250 ML 500 MG/250 ML BAG 250 MG IVPB (20:17)
[2024-08-26 21:12] LABS: Glucose Point of Care 111 mg/dl (65-105)
[2024-08-27 06:09] LABS: Basophils Percent Auto 0.5 % (0.2-1.2); Eosinophils Absolute Auto 0.3 K/mm3 (0-0.3); Eosinophils Percent Auto 3.1 % (0-4.4); Hematocrit 30.6 % (42.0-52.0); Immature Granulocyte Absolute 0.04 K/mm3 (0.00-0.031); Immature Granulocyte Percent A 0.5 % (0-0.5); Lymphocytes Absolute Auto 1.09 K/mm3 (0.9-3.2); Lymphocytes Percent Auto 12.6 % (18.3-44.2); Mean Corpuscular HGB Conc 29.4 g/dl (32-36); Mean Corpuscular Hemoglobin 30.4 pg (26-34); Mean Corpuscular Volume 103.4 fl (80-100); Mean Platelet Volume 9.6 fl (7.4-10.4); Monocytes Absolute Auto 0.9 K/mm3 (0.1-0.6); Monocytes Percent Auto 9.8 % (2.6-8.5); Neutrophils Absolute Auto 6.3 K/mm3 (1.3-6.7); Neutrophils Percent Auto 73.5 % (45.5-73.1); Platelet Count Result 296 k/mm3 (150-375); Red Blood Count 2.96 M/mm3 (4.6-6.20); Red Cell Distribution Width 15.1 % (11.5-14.5); White Blood Count 8.6 K/mm3 (4.5-10.0)
[2024-08-27 06:20] LABS: Alanine Aminotransferase 12 U/L (6-50); Albumin Level 3.2 g/dL (3.5-5.1); Alkaline Phosphatase 93 U/L (38-126); Anion Gap 7 mmol/L (4-12); Aspartate Amino Transferase 25 U/L (17-59); Bilirubin,Total 0.6 mg/dL (0.2-1.3); Blood Urea Nitrogen 27 mg/dL (9-20); Calcium 9.6 mg/dL (8.4-10.2); Carbon Dioxide 26 mmol/L (22-30); Chloride 108 mmol/L (98-107); Estimated CRCL calculation 63 ml/min; Estimated Glomerular Filt Rate 50; Glucose 100 mg/dL (65-110); Magnesium 2.1 mg/dL (1.6-2.3); Sodium 141 mmol/L (137-145)
[2024-08-27 06:25] VITALS: BP 138/70; PULSE 80; RESP 16; TEMP 36.5; O2SAT 99
[2024-08-27 07:05] LABS: Macrocytosis 1+ (NORMAL); Platelet Estimate Adequate (Adequate)
[2024-08-27 07:06] LABS: Anisocytosis 1+; Schistocytes None Seen
[2024-08-27 07:08] LABS: Burr Cells 1+
[2024-08-27 08:00] VITALS: O2SAT 94
[2024-08-27 08:27] LABS: Glucose Point of Care 91 mg/dl (65-105)
[2024-08-27] MEDS: allopurinoL 100 MG TABLET 200 MG PO (09:16)
[2024-08-27] MEDS: FOLIC ACID 1 MG TABLET PO (09:16)
[2024-08-27] MEDS: POTASSIUM CHLORIDE 20 MEQ ER TABLET PO (09:16)
[2024-08-27] MEDS: GABAPENTIN 300 MG CAPSULE 600 MG PO ×3 (09:16→16:59)
[2024-08-27] MEDS: guaiFENesin 12 HR 600 MG TABCR PO ×2 (09:16→20:25)
[2024-08-27] MEDS: ATORVASTATIN 40 MG TABLET PO (09:16)
[2024-08-27] MEDS: LORATADINE 10 MG TABLET PO (09:17)
[2024-08-27] MEDS: levETIRAcetam 500 MG TABLET 1000 MG PO ×2 (09:17→20:25)
[2024-08-27 11:56] LABS: Glucose Point of Care 82 mg/dl (65-105)
[2024-08-27] MEDS: SODIUM CHLORIDE 0.9% IV 1,000 ML 100 ML IV CONT (12:20)
--- NOTE | 2024-08-27 12:21 | WPDGIPROGNO ---
Progress Note: A&P Assessment and Plan (1) Iron deficiency anemia: Code(s): D50.9 - Iron deficiency anemia, unspecified Status: Acute Assessment and Plan: patient status post EGD yesterday showing erosive gastritis and duodenitis, however colon could not be studied. Will continue to prep him over the weekend as already ordered and will put on scheduled for colonoscopy for Thursday. Patient to continue treatment for his other comorbidities especially pneumonia. Plan - Continue treatment as directed for 2 day colonoscopy prep. Subjective Date/time seen: 08/27/24 12:21 Interval history: patient with no new symptoms. Currently taking full liquid diet in anticipation for 2 day prep for colonoscopy early next week. Exam Narrative: Unchanged from yesterday. Objective Data Vital Signs Vital Signs: Vital Signs - 24 hr 08/26/24 13:02 08/26/24 13:26 08/26/24 13:36 Temperature Pulse Rate 80 80 80 Respiratory Rate 18 20 20 Blood Pressure 108/61 81/56 L 91/61 L Pulse Oximetry 96 91 90 Oxygen Delivery Nasal Cannula Nasal Cannula Nasal Cannula Oxygen Flow Rate 3 3 6 08/26/24 13:46 08/26/24 14:50 08/26/24 20:00 Temperature Pulse Rate 80 80 Respiratory Rate 18 18 Blood Pressure 102/64 Pulse Oximetry 95 95 97 Oxygen Delivery Nasal Cannula Nasal Cannula Nasal Cannula Oxygen Flow Rate 4 4 3 08/26/24 20:20 08/27/24 06:25 08/27/24 08:00 Temperature 97.3 F L 97.7 F Pulse Rate 80 80 Respiratory Rate 18 16 Blood Pressure 111/70 138/70 Pulse Oximetry 95 99 94 Oxygen Delivery Nasal Cannula Oxygen Flow Rate 3 Intake/Output Intake/Output: Intake & Output 08/24/24 08/25/24 08/26/24 08/27/24 23:59 23:59 23:59 23:59 Intake Total 2400 1840 670 Balance 2400 1840 670 Meds/Results Medications: Active Medications Generic Name Dose Route Start Last Admin Trade Name Freq PRN Reason Stop Dose Admin Acetaminophen 650 mg 08/25/24 18:34 08/26/24 12:06 Acetaminophen 325 Mg Tablet PO 650 mg Q6H PRN Administration Mild Pain (1-3) or Fever Albuterol 1 puff 08/25/24 22:51 Albuterol Sulfate (*Sp) Aerosol 1 Puff INHALATION Q4H PRN shortness of breath or wheezing Albuterol/Ipratropium 3 ml 08/25/24 18:28 Ipratropium 0.5 Mg/Albuterol Sulfate 2.5 Mg Ampul.Neb 3 Ml INHALATION Q6HRT PRN Shortness Of Breath Or Wheezing Allopurinol 200 mg 08/26/24 08:00 08/27/24 09:16 Allopurinol 100 Mg Tablet PO 200 mg DAILY@0800 JHOANA Administration Atorvastatin Calcium 40 mg 08/26/24 09:00 08/27/24 09:16 Atorvastatin 40 Mg Tablet PO 40 mg DAILY JHOANA Administration Benzonatate 100 mg 08/25/24 18:28 Benzonatate 100 Mg Capsule PO TID PRN Cough Dextrose 12.5 gm 08/25/24 18:31 Dextrose 50% 25 Gm/50 Ml Syringe IV PUSH PRN PRN Hypoglycemia Protocol Folic Acid 1 mg 08/26/24 09:00 08/27/24 09:16 Folic Acid 1 Mg Tablet PO 1 mg DAILY JHOANA Administration Gabapentin 600 mg 08/26/24 09:00 08/27/24 09:16 Gabapentin 300 Mg Capsule PO 600 mg TID JHOANA Administration Glucagon 1 mg 08/25/24 18:31 Glucagon For Inj 1 Mg Vial IM PRN PRN Hypoglycemia Protocol Glucose 15 gm 08/25/24 18:31 Glucose Oral Gel 15 Gm Of Glucse In 37.5 Gm Tube PO PRN PRN Hypoglycemia Protocol Guaifenesin 600 mg 08/25/24 21:00 08/27/24 09:16 Guaifenesin 12 Hr 600 Mg Tabcr PO 600 mg Q12HR JHOANA Administration Sodium Chloride 1,000 mls @ 100 mls/hr 08/25/24 16:55 08/27/24 12:20 Normal Saline Iv IV CONT 100 mls/hr .Q10H JHOANA Administration Ceftriaxone Sodium 1 gm in 50 mls @ 100 mls/hr 08/25/24 18:00 08/26/24 17:36 Rocephin 1 Gm/Ns 50 Ml IVPB 100 mls/hr Q24H JHOANA Administration Dextrose 1,000 mls @ 100 mls/hr 08/25/24 18:31 Dextrose 5% 1,000 Ml IVPB PRN PRN Hypoglycemia Protocol Azithromycin 500 mg in 250 mls @ 250 mls/hr 08/26/24 20:00 08/26/24 20:17 Zithromax IVPB 250 mls/hr Q24H JHOANA Administration Insulin Aspart 4 - 8 units 08/26/24 08:00 08/27/24 09:17 Insulin Aspart (*Bkc) 100 Units/Ml SUB-Q Not Given TIDWM [facility] Protocol Insulin Glargine 22 units 08/26/24 21:00 Insulin Glargine (*Bkc) 100 Units/Ml SUB-Q HS [facility] Levetiracetam 1,000 mg 08/25/24 23:10 08/27/24 09:17 Levetiracetam 500 Mg Tablet PO 1,000 mg Q12HR JHOANA Administration Loratadine 10 mg 08/26/24 09:00 08/27/24 09:17 Loratadine 10 Mg Tablet PO 10 mg QAM JHOANA Administration Montelukast Sodium 10 mg 08/25/24 23:10 08/26/24 20:18 Montelukast Sodium 10 Mg Tablet PO 10 mg HS [facility] Administration Polyethylene Glycol 119 gm 08/28/24 20:00 Polyethylene Glycol 3350 238 Gm Bottle PO 08/29/24 05:01 BID@0500,2000 [facility] Polyethylene Glycol 119 gm 08/27/24 20:00 Polyethylene Glycol 3350 238 Gm Bottle PO 08/28/24 05:01 BID@0500,2000 [facility] Potassium Chloride 20 meq 08/26/24 08:00 08/27/24 09:16 Potassium Chloride 20 Meq Er Tablet PO 20 meq DAILY@0800 [facility] Administration Rivaroxaban 20 mg 08/26/24 17:00 08/26/24 17:38 Rivaroxaban 20 Mg Tablet PO Not Given DAILY@1700 [facility] Tamsulosin HCl 0.4 mg 08/25/24 23:15 08/26/24 20:18 Tamsulosin Hcl 0.4 Mg Capsule PO 0.4 mg QHS [facility] Administration Valsartan 40 mg 08/26/24 09:00 08/26/24 08:54 Valsartan 40 Mg Tablet PO 40 mg DAILY JHOANA Administration Radiology Results: ITS Impressions Chest X-Ray 08/25/24 15:30 IMPRESSION: Left lower lobe pneumonia. Bilateral pneumonitis versus pulmonary edema. Labs Labs: Laboratory Results - last 24 hr 08/26/24 08/26/24 08/26/24 11:57 13:06 13:31 WBC RBC Hgb Hct MCV MCH MCHC RDW Plt Count MPV Immature Gran % (Auto) Neut % (Auto) Lymph % (Auto) [place] % (Auto) Eos % (Auto) Baso % (Auto) Lymph # (Auto) [place] # (Auto) Eos # (Auto) Baso # (Auto) Abs Immat Gran (auto) Absolute Neuts (auto) Absolute Nucleated RBC Band Neutrophils % Nucleated RBC % Platelet Estimate Anisocytosis Macrocytosis [place] Cells Schistocytes Sodium Potassium Chloride Carbon Dioxide Anion Gap BUN Creatinine Estim Creat Clear Calc Estimated GFR Glucose POC Capillary Glucose 97 79 83 Calcium Magnesium Total Bilirubin AST ALT Alkaline Phosphatase Total Protein Albumin 08/26/24 08/26/24 08/27/24 16:57 20:23 05:43 WBC 8.6 RBC 2.96 L Hgb 9.0 L Hct 30.6 L MCV 103.4 H MCH 30.4 MCHC 29.4 L RDW 15.1 H Plt Count 296 MPV 9.6 Immature Gran % (Auto) 0.5 Neut % (Auto) 73.5 H Lymph % (Auto) 12.6 L [place] % (Auto) 9.8 H Eos % (Auto) 3.1 Baso % (Auto) 0.5 Lymph # (Auto) 1.09 [place] # (Auto) 0.9 H Eos # (Auto) 0.3 Baso # (Auto) 0.0 Abs Immat Gran (auto) 0.04 H Absolute Neuts (auto) 6.3 Absolute Nucleated RBC 0.000 Band Neutrophils % Not Reportable Nucleated RBC % 0.0 Platelet Estimate Adequate Anisocytosis 1+ Macrocytosis 1+ [place] Cells 1+ Schistocytes None seen Sodium 141 Potassium 5.0 Chloride 108 H Carbon Dioxide 26 Anion Gap 7 BUN 27 H Creatinine 1.41 H Estim Creat Clear Calc 63 Estimated GFR 50 L Glucose 100 POC Capillary Glucose 89 111 H Calcium 9.6 Magnesium 2.1 Total Bilirubin 0.6 AST 25 ALT 12 Alkaline Phosphatase 93 Total Protein 7.0 Albumin 3.2 L 08/27/24 08/27/24 08:18 11:48 WBC RBC Hgb Hct MCV MCH MCHC RDW Plt Count MPV Immature Gran % (Auto) Neut % (Auto) Lymph % (Auto) [place] % (Auto) Eos % (Auto) Baso % (Auto) Lymph # (Auto) [place] # (Auto) Eos # (Auto) Baso # (Auto) Abs Immat Gran (auto) Absolute Neuts (auto) Absolute Nucleated RBC Band Neutrophils % Nucleated RBC % Platelet Estimate Anisocytosis Macrocytosis [place] Cells Schistocytes Sodium Potassium Chloride Carbon Dioxide Anion Gap BUN Creatinine Estim Creat Clear Calc Estimated GFR Glucose POC Capillary Glucose 91 82 Calcium Magnesium Total Bilirubin AST ALT Alkaline Phosphatase Total Protein Albumin
--- NOTE | 2024-08-27 13:02 | PM.IMPN ---
Progress Note: A&P Assessment and Plan (1) Anemia: Qualifiers: Anemia type: unspecified type Qualified Code(s): D64.9 - Anemia, unspecified Code(s): D64.9 - Anemia, unspecified Status: Acute (2) Pneumonia: Qualifiers: Laterality: left Lung location: lower lobe of lung Pneumonia type: due to unspecified organism Qualified Code(s): J18.9 - Pneumonia, unspecified organism Code(s): J18.9 - Pneumonia, unspecified organism Status: Acute (3) Acute kidney injury: Code(s): N17.9 - Acute kidney failure, unspecified Status: Acute (4) CHF (congestive heart failure): Qualifiers: Heart failure chronicity: acute Heart failure type: unspecified Qualified Code(s): I50.9 - Heart failure, unspecified Code(s): I50.9 - Heart failure, unspecified Status: Chronic (5) Type 2 diabetes mellitus: Code(s): E11.9 - Type 2 diabetes mellitus without complications Status: Chronic (6) Hypertension: Qualifiers: Hypertension type: primary hypertension Qualified Code(s): I10 - Essential (primary) hypertension Code(s): I10 - Essential (primary) hypertension Status: Chronic Plan 63 y/o M presents here with hypotension and weakness with PMH of CHF (EF 40-45% 04/2024), CVA, diabetes, hyperlipidemia, hypertension, Parkinson's disease, depression, gout, HTN, BPH, chronic AFib, coronary artery disease. The patient presents here from [facility] via EMS for further evaluation of low blood pressure and weakness. He reports he was attending physical therapy when he stood up and became very weak and shaky. The patient's blood pressure was checked which showed it was low, no exact number reported. EMS was contacted and upon their arrival the patient was hypotensive with a systolic in the 80s per the ED provider who spoke with EMS. He currently reports the low blood pressure and weakness are accompanied by shortness of breath, cough (deep, dry), chills. He denies fever, nausea, vomiting, or diarrhea. Initial lab work showed a hemoglobin of 6.4 (baseline in 2023 was mid 7). He reports fatigue (worsened in the last 4-5 days). He reports he does not look at his stool and is unsure if his stool has been black/tarry. He is currently on Xarelto. Initial VS at presentation: 97.6? F, HR 81, R 26, 125/47, and 97% on 3L NC. ED workup showed: WBC 14.6, hemoglobin 6.4, INR 1.9, creatinine 1.9 and GFR 36 (previously 1.2 and GFR >60, May 2024), CRP 1.8. CXR showed left lower lobe pneumonia, bilateral pneumonitis versus pulmonary edema. ACUTE ON CHRONIC ANEMIA PREVIOUS HEMOGLOBIN OF 10.8 ON MAY 2024. HEMOGLOBIN 6.4 ON ADMISSION. STATUS POST TRANSFUSION STOOL OCCULT BLOOD POSITIVE GI CONSULTED FOBT POSITIVE STOOL SUGGESTIVE OF GI BLEED STATUS POST EGD WITH MILD LOCALIZED ACUTE EROSIVE GASTRITIS IN THE ANTRUM MODERATE LOCALIZED EROSIVE DUODENITIS IN THE DUODENAL BULB. CONTINUE PPI. COLONOSCOPY ATTEMPTED HOWEVER NOT PERFORMED DUE TO NO PREPPED. IRON STUDIES WITH LOW IRON AND LOW IRON SATURATION FERRITIN OF 56 TSH NORMAL. B12 NORMAL AT 789 FOLATE MORE THAN 20. A colonoscopy planned on Thursday LEFT LOWER LOBE PNEUMONIA PER CHEST X-RAY DOES REPORT SOME COUGH. STARTED ON CEFTRIAXONE AND AZITHROMYCIN. NASAL MRSA CAME BACK POSITIVE. PCR POSITIVE FOR COVID WELL. CONTINUE SUPPORTIVE TREATMENT COVID POSITIVE HYPOXIA FAIRLY STABLE. HAS HAVE RENAL DYSFUNCTION. WILL AVOID REMDESIVIR. WILL HOLD OFF ON DEXAMETHASONE WITH ACUTE ANEMIA AND GASTRIC EROSIONS UNLESS WORSENS NANY CREATININE 1.9 BASELINE 1.2. RECEIVE SOME IV FLUID IN THE ER HOLD ASA INHIBITOR AND DIURETICS NEPHROLOGY CONSULTED. Creatinine continues to improve HISTORY OF CVA MAY 2024 CONGESTIVE HEART FAILURE EF 40-45% 04/2024 ON LASIX AT HOME which is placed on hold DIABETES ON INSULIN A1C 8.4% ON 04/2024 HYPERLIPIDEMIA HYPERTENSION: BLOOD PRESSURE SOFT ON ARRIVAL HOLD BLOOD PRESSURE MEDICATION PARKINSON'S DISEASE HISTORY OF OROPHARYNGEAL DYSPHAGIA DEPRESSION GOUT BPH CHRONIC AFIB CORONARY ARTERY DISEASE Diet: Diabetic, GI Prophylaxis: Pantoprazole IV DVT Prophylaxis: SCDs XARELTO ON HOLD DUE TO ANEMIA Lines: Peripheral Code Status: Full code Subjective Date/time seen: 08/27/24 13:02 Interval history: No overnight events. States his back hurts from the position. Breathing is better. Oxygen requirement has been better. Still has cough Review of Systems Review of Systems: All systems reviewed & are unremarkable except as noted in HPI and below Exam Narrative: GENERAL APPEARANCE: WELL-DEVELOPED, WELL-NOURISHED SKIN: NORMAL COLOR, LEFT HEEL 0.5 X0.5 CM SUPERFICIAL ULCER AT THE HEEL AREA, wrapped with dressing, NO DISCHARGE, NO ERYTHEMA, NO LOCALIZED TENDERNESS HEAD: NORMOCEPHALIC, NONTRAUMATIC EYES: CLEAR CONJUNCTIVA ENT: OROPHARYNX NORMAL, EARS NORMAL, NOSE NORMAL, 3 L NASAL CANNULA ON NECK: SUPPLE, NONTENDER CHEST AND RESPIRATORY: AIRWAY PATENT, NO RESPIRATORY DISTRESS, NO ACCESSORY MUSCLE USE, COARSE BREATH SOUNDS BILATERALLY HEART: REGULAR RATE/RHYTHM ABDOMEN: SOFT, NONTENDER, NO ORGANOMEGALY, QUIET BOWEL SOUNDS VASCULAR: NORMAL PERIPHERAL PULSES, NORMAL CAPILLARY REFILL. MUSCULOSKELETAL: RIGHT BELOW-KNEE AMPUTATION, NO SIGNS OF INFECTION NEUROLOGIC: ALERT AND ORIENTED ? 3 LEFT-SIDED WEAKNESS FROM PREVIOUS STROKE Objective Data Vital Signs Vital Signs: Vital Signs - 24 hr 08/26/24 13:26 08/26/24 13:36 08/26/24 13:46 Temperature Pulse Rate 80 80 80 Respiratory Rate 20 20 18 Blood Pressure 81/56 L 91/61 L 102/64 Pulse Oximetry 91 90 95 Oxygen Delivery Nasal Cannula Nasal Cannula Nasal Cannula Oxygen Flow Rate 3 6 4 08/26/24 14:50 08/26/24 20:00 08/26/24 20:20 Temperature 97.3 F L Pulse Rate 80 80 Respiratory Rate 18 18 Blood Pressure 111/70 Pulse Oximetry 95 97 95 Oxygen Delivery Nasal Cannula Nasal Cannula Oxygen Flow Rate 4 3 08/27/24 06:25 08/27/24 08:00 Temperature 97.7 F Pulse Rate 80 Respiratory Rate 16 Blood Pressure 138/70 Pulse Oximetry 99 94 Oxygen Delivery Nasal Cannula Oxygen Flow Rate 3 Intake/Output Intake/Output: Intake & Output 08/24/24 08/25/24 08/26/24 08/27/24 23:59 23:59 23:59 23:59 Intake Total 2400 1840 670 Balance 2400 1840 670 Meds/Results Medications: Active Medications Generic Name Dose Route Start Last Admin Trade Name Freq PRN Reason Stop Dose Admin Acetaminophen 650 mg 08/25/24 18:34 08/26/24 12:06 Acetaminophen 325 Mg Tablet PO 650 mg Q6H PRN Administration Mild Pain (1-3) or Fever Albuterol 1 puff 08/25/24 22:51 Albuterol Sulfate (*Sp) Aerosol 1 Puff INHALATION Q4H PRN shortness of breath or wheezing Albuterol/Ipratropium 3 ml 03/20/25 18:28 Ipratropium 0.5 Mg/Albuterol Sulfate 2.5 Mg Ampul.Neb 3 Ml INHALATION Q6HRT PRN Shortness Of Breath Or Wheezing Allopurinol 200 mg 08/26/24 08:00 08/27/24 09:16 Allopurinol 100 Mg Tablet PO 200 mg DAILY@0800 JHOANA Administration Atorvastatin Calcium 40 mg 08/26/24 09:00 08/27/24 09:16 Atorvastatin 40 Mg Tablet PO 40 mg DAILY JHOANA Administration Benzonatate 100 mg 08/25/24 18:28 Benzonatate 100 Mg Capsule PO TID PRN Cough Dextrose 12.5 gm 08/25/24 18:31 Dextrose 50% 25 Gm/50 Ml Syringe IV PUSH PRN PRN Hypoglycemia Protocol Folic Acid 1 mg 08/26/24 09:00 08/27/24 09:16 Folic Acid 1 Mg Tablet PO 1 mg DAILY JHOANA Administration Gabapentin 600 mg 08/26/24 09:00 08/27/24 12:25 Gabapentin 300 Mg Capsule PO 600 mg TID JHOANA Administration Glucagon 1 mg 08/25/24 18:31 Glucagon For Inj 1 Mg Vial IM PRN PRN Hypoglycemia Protocol Glucose 15 gm 08/25/24 18:31 Glucose Oral Gel 15 Gm Of Glucse In 37.5 Gm Tube PO PRN PRN Hypoglycemia Protocol Guaifenesin 600 mg 08/25/24 21:00 08/27/24 09:16 Guaifenesin 12 Hr 600 Mg Tabcr PO 600 mg Q12HR JHOANA Administration Sodium Chloride 1,000 mls @ 100 mls/hr 08/25/24 16:55 08/27/24 12:20 Normal Saline Iv IV CONT 100 mls/hr .Q10H JHOANA Administration Ceftriaxone Sodium 1 gm in 50 mls @ 100 mls/hr 08/25/24 18:00 08/26/24 17:36 Rocephin 1 Gm/Ns 50 Ml IVPB 100 mls/hr Q24H JHOANA Administration Dextrose 1,000 mls @ 100 mls/hr 08/25/24 18:31 Dextrose 5% 1,000 Ml IVPB PRN PRN Hypoglycemia Protocol Azithromycin 500 mg in 250 mls @ 250 mls/hr 08/26/24 20:00 08/26/24 20:17 Zithromax IVPB 250 mls/hr Q24H JHOANA Administration Insulin Aspart 4 - 8 units 08/26/24 08:00 08/27/24 12:25 Insulin Aspart (*Bkc) 100 Units/Ml SUB-Q Not Given TIDWM [facility] Protocol Insulin Glargine 22 units 08/26/24 21:00 Insulin Glargine (*Bkc) 100 Units/Ml SUB-Q HS [facility] Levetiracetam 1,000 mg 08/25/24 23:10 08/27/24 09:17 Levetiracetam 500 Mg Tablet PO 1,000 mg Q12HR JHOANA Administration Loratadine 10 mg 08/26/24 09:00 08/27/24 09:17 Loratadine 10 Mg Tablet PO 10 mg QAM JHOANA Administration Montelukast Sodium 10 mg 08/25/24 23:10 08/26/24 20:18 Montelukast Sodium 10 Mg Tablet PO 10 mg HS [facility] Administration Polyethylene Glycol 119 gm 08/28/24 20:00 Polyethylene Glycol 3350 238 Gm Bottle PO 08/29/24 05:01 BID@0500,2000 [facility] Polyethylene Glycol 119 gm 08/27/24 20:00 Polyethylene Glycol 3350 238 Gm Bottle PO 08/28/24 05:01 BID@0500,2000 [facility] Potassium Chloride 20 meq 08/26/24 08:00 08/27/24 09:16 Potassium Chloride 20 Meq Er Tablet PO 20 meq DAILY@0800 [facility] Administration Rivaroxaban 20 mg 08/26/24 17:00 08/26/24 17:38 Rivaroxaban 20 Mg Tablet PO Not Given DAILY@1700 [facility] Tamsulosin HCl 0.4 mg 08/25/24 23:15 08/26/24 20:18 Tamsulosin Hcl 0.4 Mg Capsule PO 0.4 mg QHS [facility] Administration Valsartan 40 mg 08/26/24 09:00 08/26/24 08:54 Valsartan 40 Mg Tablet PO 40 mg DAILY [facility] Administration Radiology Results: ITS Impressions Chest X-Ray 08/25/24 15:30 IMPRESSION: Left lower lobe pneumonia. Bilateral pneumonitis versus pulmonary edema. Labs Labs: Laboratory Results - last 24 hr 08/26/24 08/26/24 08/26/24 13:06 13:31 16:57 WBC RBC Hgb Hct MCV MCH MCHC RDW Plt Count MPV Immature Gran % (Auto) Neut % (Auto) Lymph % (Auto) [place] % (Auto) Eos % (Auto) Baso % (Auto) Lymph # (Auto) [place] # (Auto) Eos # (Auto) Baso # (Auto) Abs Immat Gran (auto) Absolute Neuts (auto) Absolute Nucleated RBC Band Neutrophils % Nucleated RBC % Platelet Estimate Anisocytosis Macrocytosis [place] Cells Schistocytes Sodium Potassium Chloride Carbon Dioxide Anion Gap BUN Creatinine Estim Creat Clear Calc Estimated GFR Glucose POC Capillary Glucose 79 83 89 Calcium Magnesium Total Bilirubin AST ALT Alkaline Phosphatase Total Protein Albumin 08/26/24 08/27/24 08/27/24 20:23 05:43 08:18 WBC 8.6 RBC 2.96 L Hgb 9.0 L Hct 30.6 L MCV 103.4 H MCH 30.4 MCHC 29.4 L RDW 15.1 H Plt Count 296 MPV 9.6 Immature Gran % (Auto) 0.5 Neut % (Auto) 73.5 H Lymph % (Auto) 12.6 L [place] % (Auto) 9.8 H Eos % (Auto) 3.1 Baso % (Auto) 0.5 Lymph # (Auto) 1.09 [place] # (Auto) 0.9 H Eos # (Auto) 0.3 Baso # (Auto) 0.0 Abs Immat Gran (auto) 0.04 H Absolute Neuts (auto) 6.3 Absolute Nucleated RBC 0.000 Band Neutrophils % Not Reportable Nucleated RBC % 0.0 Platelet Estimate Adequate Anisocytosis 1+ Macrocytosis 1+ [place] Cells 1+ Schistocytes None seen Sodium 141 Potassium 5.0 Chloride 108 H Carbon Dioxide 26 Anion Gap 7 BUN 27 H Creatinine 1.41 H Estim Creat Clear Calc 63 Estimated GFR 50 L Glucose 100 POC Capillary Glucose 111 H 91 Calcium 9.6 Magnesium 2.1 Total Bilirubin 0.6 AST 25 ALT 12 Alkaline Phosphatase 93 Total Protein 7.0 Albumin 3.2 L 08/27/24 11:48 WBC RBC Hgb Hct MCV MCH MCHC RDW Plt Count MPV Immature Gran % (Auto) Neut % (Auto) Lymph % (Auto) [place] % (Auto) Eos % (Auto) Baso % (Auto) Lymph # (Auto) [place] # (Auto) Eos # (Auto) Baso # (Auto) Abs Immat Gran (auto) Absolute Neuts (auto) Absolute Nucleated RBC Band Neutrophils % Nucleated RBC % Platelet Estimate Anisocytosis Macrocytosis [place] Cells Schistocytes Sodium Potassium Chloride Carbon Dioxide Anion Gap BUN Creatinine Estim Creat Clear Calc Estimated GFR Glucose POC Capillary Glucose 82 Calcium Magnesium Total Bilirubin AST ALT Alkaline Phosphatase Total Protein Albumin
[2024-08-27 14:00] VITALS: BP 118/58; PULSE 80; RESP 18; TEMP 36.9; O2SAT 95
[2024-08-27 16:45] LABS: Glucose Point of Care 92 mg/dl (65-105)
[2024-08-27] MEDS: AZITHROMYCIN 500 MG/NS 250 ML 500 MG/250 ML BAG 250 MG IVPB (20:22)
[2024-08-27] MEDS: TAMSULOSIN HCL 0.4 MG CAPSULE PO (20:24)
[2024-08-27] MEDS: polyethylene glycoL 3350 238 GM BOTTLE 119 GM PO (20:24)
[2024-08-27] MEDS: MONTELUKAST SODIUM 10 MG TABLET PO (20:25)
[2024-08-27 20:30] VITALS: O2SAT 98
[2024-08-27 20:45] VITALS: BP 122/70; PULSE 80; RESP 18; TEMP 37.4; O2SAT 93
[2024-08-28 01:02] LABS: Glucose Point of Care 155 mg/dl (65-105)
[2024-08-28 04:30] VITALS: BP 125/75; PULSE 80; RESP 16; TEMP 36.8; O2SAT 96
[2024-08-28] MEDS: polyethylene glycoL 3350 238 GM BOTTLE 119 GM PO ×2 (06:36→20:28)
[2024-08-28 07:03] LABS: Basophils Percent Auto 0.5 % (0.2-1.2); Eosinophils Absolute Auto 0.2 K/mm3 (0-0.3); Eosinophils Percent Auto 2.1 % (0-4.4); Hematocrit 29.6 % (42.0-52.0); Hemoglobin 8.7 g/dL (14.0-18.0); Immature Granulocyte Absolute 0.02 K/mm3 (0.00-0.031); Immature Granulocyte Percent A 0.3 % (0-0.5); Lymphocytes Absolute Auto 1.29 K/mm3 (0.9-3.2); Lymphocytes Percent Auto 16.7 % (18.3-44.2); Mean Corpuscular HGB Conc 29.4 g/dl (32-36); Mean Corpuscular Hemoglobin 30.2 pg (26-34); Mean Corpuscular Volume 102.8 fl (80-100); Monocytes Absolute Auto 0.8 K/mm3 (0.1-0.6); Monocytes Percent Auto 9.8 % (2.6-8.5); Neutrophils Absolute Auto 5.5 K/mm3 (1.3-6.7); Neutrophils Percent Auto 70.6 % (45.5-73.1); Platelet Count Result 272 k/mm3 (150-375); Red Blood Count 2.88 M/mm3 (4.6-6.20); Red Cell Distribution Width 14.7 % (11.5-14.5); White Blood Count 7.7 K/mm3 (4.5-10.0)
[2024-08-28 07:13] LABS: Alanine Aminotransferase 16 U/L (6-50); Albumin Level 3.2 g/dL (3.5-5.1); Alkaline Phosphatase 88 U/L (38-126); Anion Gap 9 mmol/L (4-12); Aspartate Amino Transferase 24 U/L (17-59); Bilirubin,Total 0.5 mg/dL (0.2-1.3); Blood Urea Nitrogen 16 mg/dL (9-20); Calcium 9.4 mg/dL (8.4-10.2); Carbon Dioxide 25 mmol/L (22-30); Chloride 105 mmol/L (98-107); Estimated CRCL calculation 77 ml/min; Estimated Glomerular Filt Rate > 60; Glucose 142 mg/dL (65-110); Magnesium 1.9 mg/dL (1.6-2.3); Potassium 4.3 mmol/L (3.4-5.0); Sodium 139 mmol/L (137-145)
[2024-08-28 07:32] LABS: Glucose Point of Care 187 mg/dl (65-105)
[2024-08-28 08:00] VITALS: O2SAT 96
[2024-08-28 08:25] LABS: Hypochromasia 1+; Ovalocytes 1+; Platelet Estimate Adequate (Adequate); Schistocytes None Seen
[2024-08-28] MEDS: ACETAMINOPHEN 325 MG TABLET 650 MG PO (09:29)
[2024-08-28] MEDS: POTASSIUM CHLORIDE 20 MEQ ER TABLET PO (09:30)
[2024-08-28] MEDS: ATORVASTATIN 40 MG TABLET PO (09:30)
[2024-08-28] MEDS: LORATADINE 10 MG TABLET PO (09:30)
[2024-08-28] MEDS: allopurinoL 100 MG TABLET 200 MG PO (09:30)
[2024-08-28] MEDS: FOLIC ACID 1 MG TABLET PO (09:30)
[2024-08-28] MEDS: guaiFENesin 12 HR 600 MG TABCR PO ×2 (09:30→20:28)
[2024-08-28] MEDS: GABAPENTIN 300 MG CAPSULE 600 MG PO ×3 (09:30→16:56)
[2024-08-28] MEDS: levETIRAcetam 500 MG TABLET 1000 MG PO ×2 (09:30→20:28)
[2024-08-28 11:33] LABS: Glucose Point of Care 136 mg/dl (65-105)
--- NOTE | 2024-08-28 12:25 | WPDGIPROGNO ---
Progress Note: A&P Assessment and Plan (1) Iron deficiency anemia: Code(s): D50.9 - Iron deficiency anemia, unspecified Status: Acute Assessment and Plan: Plan as discussed above. Colonoscopy planned for tomorrow provided prep is adequate. Subjective Date/time seen: 08/28/24 12:25 Interval history: No change in patient's status compared to yesterday. He is undergoing the programmed 2 day prep in anticipation for colonoscopy tomorrow, given the fact that his last colonoscopy attempt was unsccessful due to poor prep. Exam Narrative: Unchanged from yesterday. Objective Data Vital Signs Vital Signs: Vital Signs - 24 hr 08/27/24 14:00 08/27/24 20:30 08/27/24 20:45 Temperature 98.5 F 99.3 F Pulse Rate 80 80 Respiratory Rate 18 18 Blood Pressure 118/58 L 122/70 Pulse Oximetry 95 98 93 Oxygen Delivery Nasal Cannula Oxygen Flow Rate 2 08/28/24 04:30 08/28/24 08:00 Temperature 98.3 F Pulse Rate 80 Respiratory Rate 16 Blood Pressure 125/75 Pulse Oximetry 96 96 Oxygen Delivery Nasal Cannula Oxygen Flow Rate 3 Intake/Output Intake/Output: Intake & Output 08/25/24 08/26/24 08/27/24 08/28/24 23:59 23:59 23:59 23:59 Intake Total 2400 2140 1150 1376 Output Total 475 Balance 2400 2140 1150 901 Meds/Results Medications: Active Medications Generic Name Dose Route Start Last Admin Trade Name Freq PRN Reason Stop Dose Admin Acetaminophen 650 mg 08/25/24 18:34 08/28/24 09:29 Acetaminophen 325 Mg Tablet PO 650 mg Q6H PRN Administration Mild Pain (1-3) or Fever Albuterol 1 puff 08/25/24 22:51 Albuterol Sulfate (*Sp) Aerosol 1 Puff INHALATION Q4H PRN shortness of breath or wheezing Albuterol/Ipratropium 3 ml 08/25/24 18:28 Ipratropium 0.5 Mg/Albuterol Sulfate 2.5 Mg Ampul.Neb 3 Ml INHALATION Q6HRT PRN Shortness Of Breath Or Wheezing Allopurinol 200 mg 08/26/24 08:00 08/28/24 09:30 Allopurinol 100 Mg Tablet PO 200 mg DAILY@0800 JHOANA Administration Atorvastatin Calcium 40 mg 08/26/24 09:00 08/28/24 09:30 Atorvastatin 40 Mg Tablet PO 40 mg DAILY JHOANA Administration Benzonatate 100 mg 08/25/24 18:28 Benzonatate 100 Mg Capsule PO TID PRN Cough Dextrose 12.5 gm 08/25/24 18:31 Dextrose 50% 25 Gm/50 Ml Syringe IV PUSH PRN PRN Hypoglycemia Protocol Folic Acid 1 mg 08/26/24 09:00 08/28/24 09:30 Folic Acid 1 Mg Tablet PO 1 mg DAILY JHOANA Administration Gabapentin 600 mg 08/26/24 09:00 08/28/24 09:30 Gabapentin 300 Mg Capsule PO 600 mg TID JHOANA Administration Glucagon 1 mg 08/25/24 18:31 Glucagon For Inj 1 Mg Vial IM PRN PRN Hypoglycemia Protocol Glucose 15 gm 08/25/24 18:31 Glucose Oral Gel 15 Gm Of Glucse In 37.5 Gm Tube PO PRN PRN Hypoglycemia Protocol Guaifenesin 600 mg 08/25/24 21:00 08/28/24 09:30 Guaifenesin 12 Hr 600 Mg Tabcr PO 600 mg Q12HR JHOANA Administration Sodium Chloride 1,000 mls @ 100 mls/hr 08/25/24 16:55 08/27/24 12:20 Normal Saline Iv IV CONT 100 mls/hr .Q10H JHOANA Administration Ceftriaxone Sodium 1 gm in 50 mls @ 100 mls/hr 08/25/24 18:00 08/28/24 06:37 Rocephin 1 Gm/Ns 50 Ml IVPB Infused Q24H JHOANA Infusion Dextrose 1,000 mls @ 100 mls/hr 08/25/24 18:31 Dextrose 5% 1,000 Ml IVPB PRN PRN Hypoglycemia Protocol Azithromycin 500 mg in 250 mls @ 250 mls/hr 08/26/24 20:00 08/28/24 06:36 Zithromax IVPB Infused Q24H JHOANA Infusion Insulin Aspart 4 - 8 units 08/26/24 08:00 08/28/24 09:30 Insulin Aspart (*Bkc) 100 Units/Ml SUB-Q Not Given TIDWM JHOANA Protocol Insulin Glargine 22 units 08/26/24 21:00 Insulin Glargine (*Bkc) 100 Units/Ml SUB-Q HS [facility] Levetiracetam 1,000 mg 08/25/24 23:10 08/28/24 09:30 Levetiracetam 500 Mg Tablet PO 1,000 mg Q12HR JHOANA Administration Loratadine 10 mg 08/26/24 09:00 08/28/24 09:30 Loratadine 10 Mg Tablet PO 10 mg QAM JHOANA Administration Montelukast Sodium 10 mg 08/25/24 23:10 08/27/24 20:25 Montelukast Sodium 10 Mg Tablet PO 10 mg HS JHOANA Administration Polyethylene Glycol 119 gm 08/28/24 20:00 Polyethylene Glycol 3350 238 Gm Bottle PO 08/29/24 05:01 BID@0500,2000 [facility] Potassium Chloride 20 meq 08/26/24 08:00 08/28/24 09:30 Potassium Chloride 20 Meq Er Tablet PO 20 meq DAILY@0800 [facility] Administration Rivaroxaban 20 mg 08/26/24 17:00 08/26/24 17:38 Rivaroxaban 20 Mg Tablet PO Not Given DAILY@1700 [facility] Tamsulosin HCl 0.4 mg 08/25/24 23:15 08/27/24 20:24 Tamsulosin Hcl 0.4 Mg Capsule PO 0.4 mg QHS [facility] Administration Valsartan 40 mg 08/26/24 09:00 08/26/24 08:54 Valsartan 40 Mg Tablet PO 40 mg DAILY JHOANA Administration Radiology Results: ITS Impressions Chest X-Ray 08/25/24 15:30 IMPRESSION: Left lower lobe pneumonia. Bilateral pneumonitis versus pulmonary edema. Labs Labs: Laboratory Results - last 24 hr 08/27/24 08/27/24 08/28/24 16:39 20:52 06:27 WBC 7.7 RBC 2.88 L Hgb 8.7 L Hct 29.6 L MCV 102.8 H MCH 30.2 MCHC 29.4 L RDW 14.7 H Plt Count 272 MPV 10.0 Immature Gran % (Auto) 0.3 Neut % (Auto) 70.6 Lymph % (Auto) 16.7 L [place] % (Auto) 9.8 H Eos % (Auto) 2.1 Baso % (Auto) 0.5 Lymph # (Auto) 1.29 [place] # (Auto) 0.8 H Eos # (Auto) 0.2 Baso # (Auto) 0.0 Abs Immat Gran (auto) 0.02 Absolute Neuts (auto) 5.5 Absolute Nucleated RBC 0.000 Band Neutrophils % Not Reportable Nucleated RBC % 0.0 Platelet Estimate Adequate Hypochromasia 1+ Ovalocytes 1+ Schistocytes None seen Sodium 139 Potassium 4.3 Chloride 105 Carbon Dioxide 25 Anion Gap 9 BUN 16 D Creatinine 1.14 Estim Creat Clear Calc 77 Estimated GFR > 60 Glucose 142 H POC Capillary Glucose 92 155 H Calcium 9.4 Magnesium 1.9 Total Bilirubin 0.5 AST 24 ALT 16 Alkaline Phosphatase 88 Total Protein 7.0 Albumin 3.2 L 08/28/24 08/28/24 07:29 11:30 WBC RBC Hgb Hct MCV MCH MCHC RDW Plt Count MPV Immature Gran % (Auto) Neut % (Auto) Lymph % (Auto) [place] % (Auto) Eos % (Auto) Baso % (Auto) Lymph # (Auto) [place] # (Auto) Eos # (Auto) Baso # (Auto) Abs Immat Gran (auto) Absolute Neuts (auto) Absolute Nucleated RBC Band Neutrophils % Nucleated RBC % Platelet Estimate Hypochromasia Ovalocytes Schistocytes Sodium Potassium Chloride Carbon Dioxide Anion Gap BUN Creatinine Estim Creat Clear Calc Estimated GFR Glucose POC Capillary Glucose 187 H 136 H Calcium Magnesium Total Bilirubin AST ALT Alkaline Phosphatase Total Protein Albumin
--- NOTE | 2024-08-28 12:51 | PM.IMPN ---
Progress Note: A&P Assessment and Plan (1) Anemia: Qualifiers: Anemia type: unspecified type Qualified Code(s): D64.9 - Anemia, unspecified Code(s): D64.9 - Anemia, unspecified Status: Acute (2) Pneumonia: Qualifiers: Laterality: left Lung location: lower lobe of lung Pneumonia type: due to unspecified organism Qualified Code(s): J18.9 - Pneumonia, unspecified organism Code(s): J18.9 - Pneumonia, unspecified organism Status: Acute (3) Acute kidney injury: Code(s): N17.9 - Acute kidney failure, unspecified Status: Acute (4) CHF (congestive heart failure): Qualifiers: Heart failure chronicity: acute Heart failure type: unspecified Qualified Code(s): I50.9 - Heart failure, unspecified Code(s): I50.9 - Heart failure, unspecified Status: Chronic (5) Type 2 diabetes mellitus: Code(s): E11.9 - Type 2 diabetes mellitus without complications Status: Chronic (6) Hypertension: Qualifiers: Hypertension type: primary hypertension Qualified Code(s): I10 - Essential (primary) hypertension Code(s): I10 - Essential (primary) hypertension Status: Chronic Plan 63 y/o M presents here with hypotension and weakness with PMH of CHF (EF 40-45% 04/2024), CVA, diabetes, hyperlipidemia, hypertension, Parkinson's disease, depression, gout, HTN, BPH, chronic AFib, coronary artery disease. The patient presents here from [facility] via EMS for further evaluation of low blood pressure and weakness. He reports he was attending physical therapy when he stood up and became very weak and shaky. The patient's blood pressure was checked which showed it was low, no exact number reported. EMS was contacted and upon their arrival the patient was hypotensive with a systolic in the 80s per the ED provider who spoke with EMS. He currently reports the low blood pressure and weakness are accompanied by shortness of breath, cough (deep, dry), chills. He denies fever, nausea, vomiting, or diarrhea. Initial lab work showed a hemoglobin of 6.4 (baseline in 2023 was mid 7). He reports fatigue (worsened in the last 4-5 days). He reports he does not look at his stool and is unsure if his stool has been black/tarry. He is currently on Xarelto. Initial VS at presentation: 97.6? F, HR 81, R 26, 125/47, and 97% on 3L NC. ED workup showed: WBC 14.6, hemoglobin 6.4, INR 1.9, creatinine 1.9 and GFR 36 (previously 1.2 and GFR >60, May 2024), CRP 1.8. CXR showed left lower lobe pneumonia, bilateral pneumonitis versus pulmonary edema. ACUTE ON CHRONIC ANEMIA PREVIOUS HEMOGLOBIN OF 10.8 ON MAY 2024. HEMOGLOBIN 6.4 ON ADMISSION. STATUS POST TRANSFUSION STOOL OCCULT BLOOD POSITIVE GI CONSULTED FOBT POSITIVE STOOL SUGGESTIVE OF GI BLEED STATUS POST EGD WITH MILD LOCALIZED ACUTE EROSIVE GASTRITIS IN THE ANTRUM MODERATE LOCALIZED EROSIVE DUODENITIS IN THE DUODENAL BULB. CONTINUE PPI. COLONOSCOPY ATTEMPTED HOWEVER NOT PERFORMED DUE TO NO PREPPED. IRON STUDIES WITH LOW IRON AND LOW IRON SATURATION FERRITIN OF 56 TSH NORMAL. B12 NORMAL AT 789 FOLATE MORE THAN 20. He has colonoscopy planned on Thursday LEFT LOWER LOBE PNEUMONIA PER CHEST X-RAY DOES REPORT SOME COUGH. STARTED ON CEFTRIAXONE AND AZITHROMYCIN. NASAL MRSA CAME BACK POSITIVE. PCR POSITIVE FOR COVID WELL. CONTINUE SUPPORTIVE TREATMENT COVID POSITIVE HYPOXIA FAIRLY STABLE. HAS HAVE RENAL DYSFUNCTION. WILL AVOID REMDESIVIR. WILL HOLD OFF ON DEXAMETHASONE WITH ACUTE ANEMIA AND GASTRIC EROSIONS UNLESS WORSENS. Respiratory status improving NANY CREATININE 1.9 BASELINE 1.2. RECEIVE SOME IV FLUID IN THE ER HOLD ASA INHIBITOR AND DIURETICS NEPHROLOGY CONSULTED. Creatinine continues to improve back to baseline HISTORY OF CVA MAY 2024 CONGESTIVE HEART FAILURE EF 40-45% 04/2024 ON LASIX AT HOME which is placed on hold DIABETES ON INSULIN A1C 8.4% ON 04/2024 HYPERLIPIDEMIA HYPERTENSION: BLOOD PRESSURE SOFT ON ARRIVAL HOLD BLOOD PRESSURE MEDICATION PARKINSON'S DISEASE HISTORY OF OROPHARYNGEAL DYSPHAGIA DEPRESSION GOUT BPH CHRONIC AFIB CORONARY ARTERY DISEASE Diet: Diabetic, GI Prophylaxis: Pantoprazole IV DVT Prophylaxis: SCDs XARELTO ON HOLD DUE TO ANEMIA Lines: Peripheral Code Status: Full code Subjective Date/time seen: 08/28/24 12:51 Interval history: No overnight events. No new complaints. Breathing is getting better. Review of Systems Review of Systems: All systems reviewed & are unremarkable except as noted in HPI and below Exam Narrative: GENERAL APPEARANCE: WELL-DEVELOPED, WELL-NOURISHED SKIN: NORMAL COLOR, LEFT HEEL 0.5 X0.5 CM SUPERFICIAL ULCER AT THE HEEL AREA, wrapped with dressing, NO DISCHARGE, NO ERYTHEMA, NO LOCALIZED TENDERNESS HEAD: NORMOCEPHALIC, NONTRAUMATIC EYES: CLEAR CONJUNCTIVA ENT: OROPHARYNX NORMAL, EARS NORMAL, NOSE NORMAL, 3 L NASAL CANNULA ON NECK: SUPPLE, NONTENDER CHEST AND RESPIRATORY: AIRWAY PATENT, NO RESPIRATORY DISTRESS, NO ACCESSORY MUSCLE USE, COARSE BREATH SOUNDS BILATERALLY HEART: REGULAR RATE/RHYTHM ABDOMEN: SOFT, NONTENDER, NO ORGANOMEGALY, QUIET BOWEL SOUNDS VASCULAR: NORMAL PERIPHERAL PULSES, NORMAL CAPILLARY REFILL. MUSCULOSKELETAL: RIGHT BELOW-KNEE AMPUTATION, NO SIGNS OF INFECTION NEUROLOGIC: ALERT AND ORIENTED ? 3 LEFT-SIDED WEAKNESS FROM PREVIOUS STROKE Objective Data Vital Signs Vital Signs: Vital Signs - 24 hr 08/27/24 14:00 08/27/24 20:30 08/27/24 20:45 Temperature 98.5 F 99.3 F Pulse Rate 80 80 Respiratory Rate 18 18 Blood Pressure 118/58 L 122/70 Pulse Oximetry 95 98 93 Oxygen Delivery Nasal Cannula Oxygen Flow Rate 2 08/28/24 04:30 08/28/24 08:00 Temperature 98.3 F Pulse Rate 80 Respiratory Rate 16 Blood Pressure 125/75 Pulse Oximetry 96 96 Oxygen Delivery Nasal Cannula Oxygen Flow Rate 3 Intake/Output Intake/Output: Intake & Output 08/25/24 08/26/24 08/27/24 08/28/24 23:59 23:59 23:59 23:59 Intake Total 2400 2140 1150 1376 Output Total 475 Balance 2400 2140 1150 901 Meds/Results Medications: Active Medications Generic Name Dose Route Start Last Admin Trade Name Freq PRN Reason Stop Dose Admin Acetaminophen 650 mg 08/25/24 18:34 08/28/24 09:29 Acetaminophen 325 Mg Tablet PO 650 mg Q6H PRN Administration Mild Pain (1-3) or Fever Albuterol 1 puff 08/25/24 22:51 Albuterol Sulfate (*Sp) Aerosol 1 Puff INHALATION Q4H PRN shortness of breath or wheezing Albuterol/Ipratropium 3 ml 08/25/24 18:28 Ipratropium 0.5 Mg/Albuterol Sulfate 2.5 Mg Ampul.Neb 3 Ml INHALATION Q6HRT PRN Shortness Of Breath Or Wheezing Allopurinol 200 mg 08/26/24 08:00 08/28/24 09:30 Allopurinol 100 Mg Tablet PO 200 mg DAILY@0800 JHOANA Administration Atorvastatin Calcium 40 mg 08/26/24 09:00 08/28/24 09:30 Atorvastatin 40 Mg Tablet PO 40 mg DAILY JHOANA Administration Benzonatate 100 mg 08/25/24 18:28 Benzonatate 100 Mg Capsule PO TID PRN Cough Dextrose 12.5 gm 08/25/24 18:31 Dextrose 50% 25 Gm/50 Ml Syringe IV PUSH PRN PRN Hypoglycemia Protocol Folic Acid 1 mg 08/26/24 09:00 08/28/24 09:30 Folic Acid 1 Mg Tablet PO 1 mg DAILY JHOANA Administration Gabapentin 600 mg 08/26/24 09:00 08/28/24 12:28 Gabapentin 300 Mg Capsule PO 600 mg TID JHOANA Administration Glucagon 1 mg 08/25/24 18:31 Glucagon For Inj 1 Mg Vial IM PRN PRN Hypoglycemia Protocol Glucose 15 gm 08/25/24 18:31 Glucose Oral Gel 15 Gm Of Glucse In 37.5 Gm Tube PO PRN PRN Hypoglycemia Protocol Guaifenesin 600 mg 08/25/24 21:00 08/28/24 09:30 Guaifenesin 12 Hr 600 Mg Tabcr PO 600 mg Q12HR JHOANA Administration Sodium Chloride 1,000 mls @ 100 mls/hr 08/25/24 16:55 08/27/24 12:20 Normal Saline Iv IV CONT 100 mls/hr .Q10H JHOANA Administration Ceftriaxone Sodium 1 gm in 50 mls @ 100 mls/hr 08/25/24 18:00 08/28/24 06:37 Rocephin 1 Gm/Ns 50 Ml IVPB Infused Q24H JHOANA Infusion Dextrose 1,000 mls @ 100 mls/hr 08/25/24 18:31 Dextrose 5% 1,000 Ml IVPB PRN PRN Hypoglycemia Protocol Azithromycin 500 mg in 250 mls @ 250 mls/hr 08/26/24 20:00 08/28/24 06:36 Zithromax IVPB Infused Q24H JHOANA Infusion Insulin Aspart 4 - 8 units 08/26/24 08:00 08/28/24 12:26 Insulin Aspart (*Bkc) 100 Units/Ml SUB-Q Not Given TIDWM JHOANA Protocol Insulin Glargine 22 units 08/26/24 21:00 Insulin Glargine (*Bkc) 100 Units/Ml SUB-Q HS [facility] Levetiracetam 1,000 mg 08/25/24 23:10 08/28/24 09:30 Levetiracetam 500 Mg Tablet PO 1,000 mg Q12HR JHOANA Administration Loratadine 10 mg 08/26/24 09:00 08/28/24 09:30 Loratadine 10 Mg Tablet PO 10 mg QAM JHOANA Administration Montelukast Sodium 10 mg 08/25/24 23:10 08/27/24 20:25 Montelukast Sodium 10 Mg Tablet PO 10 mg HS [facility] Administration Polyethylene Glycol 119 gm 08/28/24 20:00 Polyethylene Glycol 3350 238 Gm Bottle PO 08/29/24 05:01 BID@0500,2000 [facility] Potassium Chloride 20 meq 08/26/24 08:00 08/28/24 09:30 Potassium Chloride 20 Meq Er Tablet PO 20 meq DAILY@0800 [facility] Administration Rivaroxaban 20 mg 08/26/24 17:00 08/26/24 17:38 Rivaroxaban 20 Mg Tablet PO Not Given DAILY@1700 [facility] Tamsulosin HCl 0.4 mg 08/25/24 23:15 08/27/24 20:24 Tamsulosin Hcl 0.4 Mg Capsule PO 0.4 mg QHS [facility] Administration Valsartan 40 mg 08/26/24 09:00 08/26/24 08:54 Valsartan 40 Mg Tablet PO 40 mg DAILY JHOANA Administration Radiology Results: ITS Impressions Chest X-Ray 08/25/24 15:30 IMPRESSION: Left lower lobe pneumonia. Bilateral pneumonitis versus pulmonary edema. Labs Labs: Laboratory Results - last 24 hr 08/27/24 08/27/24 08/28/24 16:39 20:52 06:27 WBC 7.7 RBC 2.88 L Hgb 8.7 L Hct 29.6 L MCV 102.8 H MCH 30.2 MCHC 29.4 L RDW 14.7 H Plt Count 272 MPV 10.0 Immature Gran % (Auto) 0.3 Neut % (Auto) 70.6 Lymph % (Auto) 16.7 L [place] % (Auto) 9.8 H Eos % (Auto) 2.1 Baso % (Auto) 0.5 Lymph # (Auto) 1.29 [place] # (Auto) 0.8 H Eos # (Auto) 0.2 Baso # (Auto) 0.0 Abs Immat Gran (auto) 0.02 Absolute Neuts (auto) 5.5 Absolute Nucleated RBC 0.000 Band Neutrophils % Not Reportable Nucleated RBC % 0.0 Platelet Estimate Adequate Hypochromasia 1+ Ovalocytes 1+ Schistocytes None seen Sodium 139 Potassium 4.3 Chloride 105 Carbon Dioxide 25 Anion Gap 9 BUN 16 D Creatinine 1.14 Estim Creat Clear Calc 77 Estimated GFR > 60 Glucose 142 H POC Capillary Glucose 92 155 H Calcium 9.4 Magnesium 1.9 Total Bilirubin 0.5 AST 24 ALT 16 Alkaline Phosphatase 88 Total Protein 7.0 Albumin 3.2 L 08/28/24 08/28/24 07:29 11:30 WBC RBC Hgb Hct MCV MCH MCHC RDW Plt Count MPV Immature Gran % (Auto) Neut % (Auto) Lymph % (Auto) [place] % (Auto) Eos % (Auto) Baso % (Auto) Lymph # (Auto) [place] # (Auto) Eos # (Auto) Baso # (Auto) Abs Immat Gran (auto) Absolute Neuts (auto) Absolute Nucleated RBC Band Neutrophils % Nucleated RBC % Platelet Estimate Hypochromasia Ovalocytes Schistocytes Sodium Potassium Chloride Carbon Dioxide Anion Gap BUN Creatinine Estim Creat Clear Calc Estimated GFR Glucose POC Capillary Glucose 187 H 136 H Calcium Magnesium Total Bilirubin AST ALT Alkaline Phosphatase Total Protein Albumin
[2024-08-28 14:00] VITALS: BP 121/83; PULSE 80; RESP 18; TEMP 36.5; O2SAT 98
[2024-08-28 16:56] LABS: Glucose Point of Care 101 mg/dl (65-105)
[2024-08-28] MEDS: AZITHROMYCIN 500 MG/NS 250 ML 500 MG/250 ML BAG 250 MG IVPB (20:27)
[2024-08-28] MEDS: TAMSULOSIN HCL 0.4 MG CAPSULE PO (20:28)
[2024-08-28] MEDS: MONTELUKAST SODIUM 10 MG TABLET PO (20:28)
[2024-08-28 20:30] LABS: Glucose Point of Care 150 mg/dl (65-105)
[2024-08-28 21:55] VITALS: BP 108/72; PULSE 81; RESP 18; TEMP 36.5; O2SAT 99
[2024-08-29] VITALS (9 sets, daily range): BP systolic 94–128; BP diastolic 53–80; PULSE 80–81; RESP 18–20; TEMP 36.2–36.6; O2SAT 98–100; BMI 10.0
[2024-08-29] MEDS: polyethylene glycoL 3350 238 GM BOTTLE 119 GM PO (05:04)
[2024-08-29 05:57] LABS: Basophils Percent Auto 0.5 % (0.2-1.2); Eosinophils Absolute Auto 0.4 K/mm3 (0-0.3); Eosinophils Percent Auto 6.2 % (0-4.4); Hematocrit 29.5 % (42.0-52.0); Hemoglobin 8.9 g/dL (14.0-18.0); Immature Granulocyte Absolute 0.02 K/mm3 (0.00-0.031); Immature Granulocyte Percent A 0.3 % (0-0.5); Lymphocytes Percent Auto 22.5 % (18.3-44.2); Mean Corpuscular HGB Conc 30.2 g/dl (32-36); Mean Corpuscular Hemoglobin 30.6 pg (26-34); Mean Corpuscular Volume 101.4 fl (80-100); Mean Platelet Volume 9.8 fl (7.4-10.4); Monocytes Absolute Auto 0.6 K/mm3 (0.1-0.6); Neutrophils Absolute Auto 3.5 K/mm3 (1.3-6.7); Neutrophils Percent Auto 60.5 % (45.5-73.1); Platelet Count Result 256 k/mm3 (150-375); Red Blood Count 2.91 M/mm3 (4.6-6.20); Red Cell Distribution Width 14.5 % (11.5-14.5); White Blood Count 5.8 K/mm3 (4.5-10.0)
[2024-08-29 06:09] LABS: Potassium 4.4 mmol/L (3.4-5.0)
[2024-08-29 06:15] LABS: Alanine Aminotransferase 18 U/L (6-50); Albumin Level 3.1 g/dL (3.5-5.1); Alkaline Phosphatase 93 U/L (38-126); Anion Gap 4 mmol/L (4-12); Aspartate Amino Transferase 28 U/L (17-59); Bilirubin,Total 0.5 mg/dL (0.2-1.3); Blood Urea Nitrogen 12 mg/dL (9-20); Calcium 9.9 mg/dL (8.4-10.2); Carbon Dioxide 29 mmol/L (22-30); Chloride 107 mmol/L (98-107); Estimated CRCL calculation 88 ml/min; Estimated Glomerular Filt Rate > 60; Glucose 102 mg/dL (65-110); Magnesium 1.7 mg/dL (1.6-2.3); Potassium 4.4 mmol/L (3.4-5.0); Sodium 140 mmol/L (137-145)
[2024-08-29 07:49] LABS: Glucose Point of Care 108 mg/dl (65-105)
[2024-08-29] MEDS: levETIRAcetam 500 MG TABLET 1000 MG PO ×2 (08:05→21:35)
--- NOTE | 2024-08-29 11:12 | PCNFU ---
Nutrition Follow-Up Complete: Inadequate energy intake related to NPO status and altered GI function as evidenced by diet orders Goal:Diet order PO intake greater than 50% Pt progressing towards goal. Pt current nutrition is NPO for colonoscopy. Nutrition recommendation: Resume diet when appropriate Last recorded weight is 119 kg. Bowel Motility: +BM 08/29 Labs Reviewed: Hgb:9.7, HCt:32, BUN:31, Cr:1.8 Meds Noted: insulin, folic acid, KCL Skin: WNL Additional Notes: Pt was on a clear liquid, full liquid, then diabetic diet. NPO now for colonoscopy. Will monitor for diet restart. Monitor for diet orders, intake, tolerance, wt, labs. Follow up in 3 days.
[2024-08-29 11:30] LABS: Glucose Point of Care 90 mg/dl (65-105)
--- NOTE | 2024-08-29 13:17 | WPDANESEPPF ---
Anes - Initial Pre Proc Eval Procedure: Operation Date: 08/26/24 13:30 Proposed Procedures p Esophagogastroduodenoscopy & Colonoscopy - Ankit Trimble MD Operation Date: 08/29/24 13:30 Proposed Procedures p Colonoscopy - Osiel Smith MD Date/Time: 08/29/24 13:17 Surgeon: Anali Lino MD Pre Op Diagnosis: GI Bleed/Anemia/Dizziness Patient Data Age: 64 Gender: M Height: 1.85 m Weight: 119 kg Last Vital Signs Temp 97.7 F 08/29/24 12:50 Pulse 80 08/29/24 12:50 Resp 18 08/29/24 12:50 BP 115/72 08/29/24 12:50 Pulse Ox 100 08/29/24 12:50 O2 Del Method Nasal Cannula 08/29/24 12:50 O2 Flow Rate 3 08/29/24 12:50 Allergies Allergy/AdvReac Type Severity Reaction Status Date / Time No Known Allergies Allergy Verified 08/25/24 14:51 Home Medications ?Medication ?Instructions ?Recorded ?Confirmed ?Type cetirizine 10 mg tablet 10 mg PO DAILY #90 tabs 10/26/23 08/25/24 Rx potassium chloride 20 mEq 20 meq PO DAILY #90 tabs 02/23/24 08/25/24 Rx tablet,extended release(part/cryst) tamsulosin 0.4 mg capsule 0.4 mg PO QHS #90 caps 03/03/24 08/25/24 Rx allopurinol 100 mg tablet 200 mg (2 x 100 mg) PO DAILY #180 05/23/24 08/25/24 Rx tabs levetiracetam 1,000 mg tablet 1,000 mg PO BID #60 tabs 06/07/24 08/25/24 Rx (Keppra) folic acid 1 mg tablet 1 mg PO DAILY #90 tabs 07/22/24 08/25/24 Rx rivaroxaban 20 mg tablet (Xarelto) 20 mg PO DAILY #30 tabs 08/01/24 08/25/24 Rx aspirin 325 mg tablet 325 mg PO DAILY@0800 #30 tabs 08/09/24 08/25/24 Rx atorvastatin 40 mg tablet (Lipitor) 40 mg PO DAILY #90 tabs 08/09/24 08/25/24 Rx albuterol sulfate 90 mcg/actuation 1 puff inhalation Q4H PRN 08/15/24 08/25/24 Rx aerosol inhaler shortness of breath or wheezing #25.5 grams valsartan 40 mg tablet (Diovan) 40 mg PO DAILY #30 tabs 08/15/24 08/25/24 Rx furosemide 40 mg tablet 40 mg PO DAILY #30 tabs 08/24/24 08/25/24 Rx montelukast 10 mg tablet 10 mg PO HS #30 tabs 08/24/24 08/25/24 Rx gabapentin 600 mg tablet 600 mg PO TID 08/25/24 08/25/24 History insulin glargine 100 unit/mL 22 unit subcut HS 08/25/24 08/25/24 History subcutaneous solution (Lantus U-100 Insulin) Laboratory Tests 08/28/24 08/28/24 08/29/24 16:52 19:46 05:46 WBC 5.8 K/mm3 (4.5-10.0) RBC 2.91 L M/mm3 (4.6-6.20) Hgb 8.9 L g/dL (14.0-18.0) Hct 29.5 L % (42.0-52.0) MCV 101.4 H fl (80-100) MCH 30.6 pg (26-34) MCHC 30.2 L g/dl (32-36) RDW 14.5 % (11.5-14.5) Plt Count 256 k/mm3 (150-375) MPV 9.8 fl (7.4-10.4) Immature Gran % (Auto) 0.3 % (0-0.5) Neut % (Auto) 60.5 % (45.5-73.1) Lymph % (Auto) 22.5 % (18.3-44.2) [place] % (Auto) 10.0 H % (2.6-8.5) Eos % (Auto) 6.2 H % (0-4.4) Baso % (Auto) 0.5 % (0.2-1.2) Lymph # (Auto) 1.30 K/mm3 (0.9-3.2) [place] # (Auto) 0.6 K/mm3 (0.1-0.6) Eos # (Auto) 0.4 H K/mm3 (0-0.3) Baso # (Auto) 0.0 K/mm3 (0.0-0.1) Abs Immat Gran (auto) 0.02 K/mm3 (0.00-0.031) Absolute Neuts (auto) 3.5 K/mm3 (1.3-6.7) Absolute Nucleated RBC 0.000 K/mm3 (0.0-0.012) Nucleated RBC % 0.0 % (0.0-0.2) Sodium 140 mmol/L (137-145) Potassium 4.4 mmol/L (3.4-5.0) Chloride Carbon Dioxide Anion Gap BUN Creatinine Estim Creat Clear Calc Estimated GFR Glucose POC Capillary Glucose 101 mg/dl 150 H mg/dl (65-105) (65-105) Calcium Magnesium Total Bilirubin AST ALT Alkaline Phosphatase Total Protein Albumin 08/29/24 08/29/24 08/29/24 05:46 07:25 11:26 WBC RBC Hgb Hct MCV MCH MCHC RDW Plt Count MPV Immature Gran % (Auto) Neut % (Auto) Lymph % (Auto) [place] % (Auto) Eos % (Auto) Baso % (Auto) Lymph # (Auto) [place] # (Auto) Eos # (Auto) Baso # (Auto) Abs Immat Gran (auto) Absolute Neuts (auto) Absolute Nucleated RBC Nucleated RBC % Sodium Potassium 4.4 mmol/L (3.4-5.0) Chloride 107 mmol/L (98-107) Carbon Dioxide 29 mmol/L (22-30) Anion Gap 4 mmol/L (4-12) BUN 12 mg/dL (9-20) Creatinine 0.99 mg/dL (0.7-1.3) Estim Creat Clear Calc 88 ml/min Estimated GFR > 60 (59 - ) Glucose 102 mg/dL (65-110) POC Capillary Glucose 108 H mg/dl 90 mg/dl (65-105) (65-105) Calcium 9.9 mg/dL (8.4-10.2) Magnesium 1.7 mg/dL (1.6-2.3) Total Bilirubin 0.5 mg/dL (0.2-1.3) AST 28 U/L (17-59) ALT 18 U/L (6-50) Alkaline Phosphatase 93 U/L (38-126) Total Protein 7.0 g/dL (6.3-8.2) Albumin 3.1 L g/dL (3.5-5.1) Patient hx anesthesia problems: none Family hx anesthesia problems: none Results Review: All pre-operative results and documents have been reviewed as part of the pre-operative evaluation. [facility] Past Medical History Medical History COVID Occult blood in stools Acute on chronic anemia Cervical radiculopathy at C6 Right-sided cerebrovascular accident (CVA) Cellulitis of right lower extremity Stasis dermatitis Seasonal allergies Type 2 diabetes mellitus Diabetic foot ulcer Asthma Folate deficiency Hyperlipidemia Uncontrolled hypertension Bilateral cataracts Maturing Diabetic peripheral neuropathy Dyslipidemia Parkinsons disease Kidney stones Depression Gout Essential hypertension Anxiety BPH loc w urin obs/LUTS Chronic atrial fibrillation Coronary artery disease involving [place] heart without angina pectoris Surgical History Surgical History History of bilateral carpal tunnel release S/P cubital tunnel release Hx of tonsillectomy History of permanent cardiac pacemaker placement (~2015) [place] History of heart artery stent (~2008) Family History Family History Mother Family history of blood dyscrasia Grandparent Alcoholism Social History Social History Social History: He is and lives alone. He has 4 children 1 of which in a motor vehicle collision. He used to work for a [employer] company but is now on disability. He smokes about 10 cigarettes a day and has smoked since his early 20s. He reports he quit smoking March 2024. He denies any significant alcohol use. Code status: DNR/DNI (per patient request) Surrogate decision maker: Enedelia Villalpando (friend) Smoking packs per day: 0.5 Smoking cigarettes per day: 10.0 Years smoked: 25 Smoking pack-years: 12.50 Smoking status: Former smoker Second hand tobacco smoke exposure: No Alcohol intake: current Alcohol use details: Occasionally Substance use: never Substance use type: does not use Do You Feel Safe in your Home?: Yes Lack of Transportation: No Lack of Food: Never True Current Housing: I Have Housing Concerned About Future Housing: No Difficulty Paying Gas/Electric Bills: YES Difficulty Paying for Meds: No Currently Unemployed: No Education: High School Diploma/GED Difficulty w/ Childcare or Family Care: No Spiritual care concerns: No Anes - Eval Final PreProcedure Day of Procedure 08/29/24 13:17 Patient weight: obese Lungs: normal air movement Airway: Mallampati scale class II Neurological: alert and oriented Last oral intake: >/= 8 hours ASA classification: IV Emergent: no Anesthetic plan: proceed Anesthesia type and monitoring: general GIVS and standard monitoring Results Review: All pre-operative results and documents have been reviewed as part of the pre-operative evaluation. Complicated pt w many comorbid conditions, and an actue GI bleed/anemia in the setting of COVID infection. Pt on home O2 at 3 L. Informed Consent: The patient's anesthetic plan and its attendant risks and benefits were discussed with the patient/family/POA. Questions were solicited and answers provided to the satisfaction of the patient/family/POA.
[2024-08-29] MEDS: LACTATED RINGERS 1,000 ML 150 ML IV CONT (13:23)
--- NOTE | 2024-08-29 14:06 | SUR.PREOP ---
Pre-op blood glucose: 73 Post-op blood glucose: 79
[2024-08-29] MEDS: guaiFENesin 12 HR 600 MG TABCR PO ×2 (14:13→21:36)
[2024-08-29] MEDS: FOLIC ACID 1 MG TABLET PO (14:13)
[2024-08-29] MEDS: ATORVASTATIN 40 MG TABLET PO (14:13)
[2024-08-29] MEDS: allopurinoL 100 MG TABLET 200 MG PO (14:13)
[2024-08-29] MEDS: POTASSIUM CHLORIDE 20 MEQ ER TABLET PO (14:13)
[2024-08-29] MEDS: GABAPENTIN 300 MG CAPSULE 600 MG PO ×2 (14:13→21:42)
[2024-08-29] MEDS: LORATADINE 10 MG TABLET PO (14:14)
--- NOTE | 2024-08-29 14:27 | P.PNIM_ITS ---
Progress Note: A&P Assessment and Plan (1) Anemia: Qualifiers: Anemia type: unspecified type Qualified Code(s): D64.9 - Anemia, unspecified Code(s): D64.9 - Anemia, unspecified Status: Acute (2) Pneumonia: Qualifiers: Laterality: left Lung location: lower lobe of lung Pneumonia type: due to unspecified organism Qualified Code(s): J18.9 - Pneumonia, unspecified organism Code(s): J18.9 - Pneumonia, unspecified organism Status: Acute (3) Acute kidney injury: Code(s): N17.9 - Acute kidney failure, unspecified Status: Acute (4) CHF (congestive heart failure): Qualifiers: Heart failure chronicity: acute Heart failure type: unspecified Qualified Code(s): I50.9 - Heart failure, unspecified Code(s): I50.9 - Heart failure, unspecified Status: Chronic (5) Type 2 diabetes mellitus: Code(s): E11.9 - Type 2 diabetes mellitus without complications Status: Chronic (6) Hypertension: Qualifiers: Hypertension type: primary hypertension Qualified Code(s): I10 - Essential (primary) hypertension Code(s): I10 - Essential (primary) hypertension Status: Chronic Plan 63 y/o M presents here with hypotension and weakness with PMH of CHF (EF 40-45% 04/2024), CVA, diabetes, hyperlipidemia, hypertension, Parkinson's disease, depression, gout, HTN, BPH, chronic AFib, coronary artery disease. The patient presents here from [facility] via EMS for further evaluation of low blood pressure and weakness. He reports he was attending physical therapy when he stood up and became very weak and shaky. The patient's blood pressure was checked which showed it was low, no exact number reported. EMS was contacted and upon their arrival the patient was hypotensive with a systolic in the 80s per the ED provider who spoke with EMS. He currently reports the low blood pressure and weakness are accompanied by shortness of breath, cough (deep, dry), chills. He denies fever, nausea, vomiting, or diarrhea. Initial lab work showed a hemoglobin of 6.4 (baseline in 2023 was mid 7). He reports fatigue (worsened in the last 4-5 days). He reports he does not look at his stool and is unsure if his stool has been black/tarry. He is currently on Xarelto. Initial VS at presentation: 97.6? F, HR 81, R 26, 125/47, and 97% on 3L NC. ED workup showed: WBC 14.6, hemoglobin 6.4, INR 1.9, creatinine 1.9 and GFR 36 (previously 1.2 and GFR >60, May 2024), CRP 1.8. CXR showed left lower lobe pneumonia, bilateral pneumonitis versus pulmonary edema. ACUTE ON CHRONIC ANEMIA PREVIOUS HEMOGLOBIN OF 10.8 ON MAY 2024. HEMOGLOBIN 6.4 ON ADMISSION. STATUS POST TRANSFUSION STOOL OCCULT BLOOD POSITIVE GI CONSULTED FOBT POSITIVE STOOL SUGGESTIVE OF GI BLEED STATUS POST EGD WITH MILD LOCALIZED ACUTE EROSIVE GASTRITIS IN THE ANTRUM MODERATE LOCALIZED EROSIVE DUODENITIS IN THE DUODENAL BULB. CONTINUE PPI. COLONOSCOPY ATTEMPTED HOWEVER NOT PERFORMED DUE TO NO PREPPED. IRON STUDIES WITH LOW IRON AND LOW IRON SATURATION FERRITIN OF 56 TSH NORMAL. B12 NORMAL AT 789 FOLATE MORE THAN 20. He has colonoscopy planned on Thursday LEFT LOWER LOBE PNEUMONIA PER CHEST X-RAY DOES REPORT SOME COUGH. STARTED ON CEFTRIAXONE AND AZITHROMYCIN.. Will switch antibiotics to oral. NASAL MRSA CAME BACK POSITIVE. PCR POSITIVE FOR COVID WELL. CONTINUE SUPPORTIVE TREATMENT COVID POSITIVE HYPOXIA FAIRLY STABLE. HAS HAVE RENAL DYSFUNCTION. WILL AVOID REMDESIVIR. WILL HOLD OFF ON DEXAMETHASONE WITH ACUTE ANEMIA AND GASTRIC EROSIONS UNLESS WORSENS. Respiratory status improving/stable NANY CREATININE 1.9 BASELINE 1.2. RECEIVE SOME IV FLUID IN THE ER HOLD ASA INHIBITOR AND DIURETICS NEPHROLOGY CONSULTED. Creatinine continues to improve back to baseline HISTORY OF CVA MAY 2024 CONGESTIVE HEART FAILURE EF 40-45% 04/2024 ON LASIX AT HOME which is placed on hold. Will need to resume at discharge DIABETES ON INSULIN A1C 8.4% ON 04/2024 HYPERLIPIDEMIA HYPERTENSION: BLOOD PRESSURE SOFT ON ARRIVAL HOLD BLOOD PRESSURE MEDICATION PARKINSON'S DISEASE HISTORY OF OROPHARYNGEAL DYSPHAGIA DEPRESSION GOUT BPH CHRONIC AFIB CORONARY ARTERY DISEASE Diet: Diabetic, GI Prophylaxis: Pantoprazole IV DVT Prophylaxis: SCDs XARELTO ON HOLD DUE TO ANEMIA Lines: Peripheral Code Status: Full code Subjective Date/time seen: 08/29/24 14:27 Interval history: No overnight events. Going for colonoscopy today. No fever chills. Minimal cough still present. Oxygen requirement remains stable. Working with therapy this a.m.. Review of Systems Review of Systems: All systems reviewed & are unremarkable except as noted in HPI and below Exam Narrative: GENERAL APPEARANCE: WELL-DEVELOPED, WELL-NOURISHED SKIN: NORMAL COLOR, LEFT HEEL 0.5 X0.5 CM SUPERFICIAL ULCER AT THE HEEL AREA, wrapped with dressing, NO DISCHARGE, NO ERYTHEMA, NO LOCALIZED TENDERNESS HEAD: NORMOCEPHALIC, NONTRAUMATIC EYES: CLEAR CONJUNCTIVA ENT: OROPHARYNX NORMAL, EARS NORMAL, NOSE NORMAL, 3 L NASAL CANNULA ON NECK: SUPPLE, NONTENDER CHEST AND RESPIRATORY: AIRWAY PATENT, NO RESPIRATORY DISTRESS, NO ACCESSORY MUS GLORIA USE, COARSE BREATH SOUNDS BILATERALLY HEART: REGULAR RATE/RHYTHM ABDOMEN: SOFT, NONTENDER, NO ORGANOMEGALY, QUIET BOWEL SOUNDS VASCULAR: NORMAL PERIPHERAL PULSES, NORMAL CAPILLARY REFILL. MUSCULOSKELETAL: RIGHT BELOW-KNEE AMPUTATION, NO SIGNS OF INFECTION NEUROLOGIC: ALERT AND ORIENTED ? 3 LEFT-SIDED WEAKNESS FROM PREVIOUS STROKE Objective Data Vital Signs Vital Signs: Vital Signs - 24 hr 08/28/24 21:55 08/29/24 05:23 08/29/24 08:00 Temperature 97.7 F 97.4 F L Pulse Rate 81 81 Respiratory Rate 18 18 Blood Pressure 108/72 125/75 Pulse Oximetry 99 98 98 Oxygen Delivery Nasal Cannula Oxygen Flow Rate 3 08/29/24 11:20 08/29/24 11:33 08/29/24 12:48 Temperature 97.7 F Pulse Rate 80 Respiratory Rate 18 Blood Pressure 115/72 Pulse Oximetry 100 Oxygen Delivery Nasal Cannula Nasal Cannula Nasal Cannula Oxygen Flow Rate 2 3 3 08/29/24 13:17 08/29/24 13:27 08/29/24 13:37 Temperature Pulse Rate 80 80 80 Respiratory Rate 18 18 18 Blood Pressure 94/53 L 107/66 118/72 Pulse Oximetry 100 100 100 Oxygen Delivery Nasal Cannula Nasal Cannula Nasal Cannula Oxygen Flow Rate 3 3 3 08/29/24 14:00 Temperature 97.2 F L Pulse Rate 80 Respiratory Rate 18 Blood Pressure 125/80 Pulse Oximetry 98 Oxygen Delivery Oxygen Flow Rate Intake/Output Intake/Output: Intake & Output 08/26/24 08/27/24 08/28/24 08/29/24 23:59 23:59 23:59 23:59 Intake Total 2140 1150 2616 100 Output Total 875 1150 Balance 2140 1150 1741 -1050 Meds/Results Medications: Active Medications Generic Name Dose Route Start Last Admin Trade Name Freq PRN Reason Stop Dose Admin Acetaminophen 650 mg 08/25/24 18:34 08/28/24 09:29 Acetaminophen 325 Mg Tablet PO 650 mg Q6H PRN Administration Mild Pain (1-3) or Fever Albuterol 1 puff 08/25/24 22:51 Albuterol Sulfate (*Sp) Aerosol 1 Puff INHALATION Q4H PRN shortness of breath or wheezing Albuterol/Ipratropium 3 ml 08/25/24 18:28 Ipratropium 0.5 Mg/Albuterol Sulfate 2.5 Mg Ampul.Neb 3 Ml INHALATION Q6HRT PRN Shortness Of Breath Or Wheezing Allopurinol 200 mg 08/26/24 08:00 08/29/24 14:13 Allopurinol 100 Mg Tablet PO 200 mg DAILY@0800 JHOANA Administration Amoxicillin/Clavulanate Potassium 1 tablet 08/29/24 21:00 Amoxicillin/Clavulanate K 875-125 Mg Tab PO 09/01/24 09:01 Q12HR JHOANA Atorvastatin Calcium 40 mg 08/26/24 09:00 08/29/24 14:13 Atorvastatin 40 Mg Tablet PO 40 mg DAILY JHOANA Administration Azithromycin 500 mg 08/29/24 21:00 Azithromycin 250 Mg Tablet PO 08/29/24 21:01 ONCE ONE Benzonatate 100 mg 08/25/24 18:28 Benzonatate 100 Mg Capsule PO TID PRN Cough Dextrose 12.5 gm 08/25/24 18:31 Dextrose 50% 25 Gm/50 Ml Syringe IV PUSH PRN PRN Hypoglycemia Protocol Folic Acid 1 mg 08/26/24 09:00 08/29/24 14:13 Folic Acid 1 Mg Tablet PO 1 mg DAILY JHOANA Administration Gabapentin 600 mg 08/26/24 09:00 08/29/24 14:17 Gabapentin 300 Mg Capsule PO Not Given TID JHOANA Glucagon 1 mg 08/25/24 18:31 Glucagon For Inj 1 Mg Vial IM PRN PRN Hypoglycemia Protocol Glucose 15 gm 08/25/24 18:31 Glucose Oral Gel 15 Gm Of Glucse In 37.5 Gm Tube PO PRN PRN Hypoglycemia Protocol Guaifenesin 600 mg 08/25/24 21:00 08/29/24 14:13 Guaifenesin 12 Hr 600 Mg Tabcr PO 600 mg Q12HR JHOANA Administration Dextrose 1,000 mls @ 100 mls/hr 08/25/24 18:31 Dextrose 5% 1,000 Ml IVPB PRN PRN Hypoglycemia Protocol Insulin Aspart 4 - 8 units 08/26/24 08:00 08/29/24 11:33 Insulin Aspart (*Bkc) 100 Units/Ml SUB-Q Not Given TIDWM JHOANA Protocol Insulin Glargine 22 units 08/26/24 21:00 Insulin Glargine (*Bkc) 100 Units/Ml SUB-Q HS JHOANA Levetiracetam 1,000 mg 08/25/24 23:10 08/29/24 08:05 Levetiracetam 500 Mg Tablet PO 1,000 mg Q12HR JHOANA Administration Loratadine 10 mg 08/26/24 09:00 08/29/24 14:14 Loratadine 10 Mg Tablet PO 10 mg QAM JHOANA Administration Montelukast Sodium 10 mg 08/25/24 23:10 08/28/24 20:28 Montelukast Sodium 10 Mg Tablet PO 10 mg HS JHOANA Administration Potassium Chloride 20 meq 08/26/24 08:00 08/29/24 14:13 Potassium Chloride 20 Meq Er Tablet PO 20 meq DAILY@0800 JHOANA Administration Rivaroxaban 20 mg 08/26/24 17:00 08/26/24 17:38 Rivaroxaban 20 Mg Tablet PO Not Given DAILY@1700 [facility] Tamsulosin HCl 0.4 mg 08/25/24 23:15 08/28/24 20:28 Tamsulosin Hcl 0.4 Mg Capsule PO 0.4 mg QHS JHOANA Administration Valsartan 40 mg 08/26/24 09:00 08/26/24 08:54 Valsartan 40 Mg Tablet PO 40 mg DAILY JHOANA Administration Radiology Results: ITS Impressions Chest X-Ray 08/25/24 15:30 IMPRESSION: Left lower lobe pneumonia. Bilateral pneumonitis versus pulmonary edema. Labs Labs: Laboratory Results - last 24 hr 08/28/24 08/28/24 08/29/24 16:52 19:46 05:46 WBC 5.8 RBC 2.91 L Hgb 8.9 L Hct 29.5 L MCV 101.4 H MCH 30.6 MCHC 30.2 L RDW 14.5 Plt Count 256 MPV 9.8 Immature Gran % (Auto) 0.3 Neut % (Auto) 60.5 Lymph % (Auto) 22.5 [place] % (Auto) 10.0 H Eos % (Auto) 6.2 H Baso % (Auto) 0.5 Lymph # (Auto) 1.30 [place] # (Auto) 0.6 Eos # (Auto) 0.4 H Baso # (Auto) 0.0 Abs Immat Gran (auto) 0.02 Absolute Neuts (auto) 3.5 Absolute Nucleated RBC 0.000 Nucleated RBC % 0.0 Sodium 140 Potassium 4.4 Chloride Carbon Dioxide Anion Gap BUN Creatinine Estim Creat Clear Calc Estimated GFR Glucose POC Capillary Glucose 101 150 H Calcium Magnesium Total Bilirubin AST ALT Alkaline Phosphatase Total Protein Albumin 08/29/24 08/29/24 08/29/24 05:46 07:25 11:26 WBC RBC Hgb Hct MCV MCH MCHC RDW Plt Count MPV Immature Gran % (Auto) Neut % (Auto) Lymph % (Auto) [place] % (Auto) Eos % (Auto) Baso % (Auto) Lymph # (Auto) [place] # (Auto) Eos # (Auto) Baso # (Auto) Abs Immat Gran (auto) Absolute Neuts (auto) Absolute Nucleated RBC Nucleated RBC % Sodium Potassium 4.4 Chloride 107 Carbon Dioxide 29 Anion Gap 4 BUN 12 Creatinine 0.99 Estim Creat Clear Calc 88 Estimated GFR > 60 Glucose 102 POC Capillary Glucose 108 H 90 Calcium 9.9 Magnesium 1.7 Total Bilirubin 0.5 AST 28 ALT 18 Alkaline Phosphatase 93 Total Protein 7.0 Albumin 3.1 L
--- NOTE | 2024-08-29 15:46 | P.PNGI_ITS ---
Progress Note: A&P Assessment and Plan (1) GI bleed: Code(s): K92.2 - Gastrointestinal hemorrhage, unspecified Status: Acute Assessment and Plan: The patient's iron deficiency anemia remains unexplained by colonoscopy findings. However, recent endoscopy revealed gastric and duodenal erosions, which are considered the most probable etiology. He is medically stable for discharge from gastroenterology services. A three-month course of oral iron supplementation is recommended, with repeat hemoglobin and iron level assessment at the GI clinic in three months. A daily PPI is also advised at discharge. Subjective Date/time seen: 08/29/24 15:46 Interval history: the patient underwent a colonoscopy this morning, see report. Two medium to large polyps removed. No suspicion for colon cancer to explain iron deficiency anemia. Exam Narrative: Unchanged from yester Objective Data Vital Signs Vital Signs: Vital Signs - 24 hr 08/28/24 21:55 08/29/24 05:23 08/29/24 08:00 Temperature 97.7 F 97.4 F L Pulse Rate 81 81 Respiratory Rate 18 18 Blood Pressure 108/72 125/75 Pulse Oximetry 99 98 98 Oxygen Delivery Nasal Cannula Oxygen Flow Rate 3 08/29/24 11:20 08/29/24 11:33 08/29/24 12:48 Temperature 97.7 F Pulse Rate 80 Respiratory Rate 18 Blood Pressure 115/72 Pulse Oximetry 100 Oxygen Delivery Nasal Cannula Nasal Cannula Nasal Cannula Oxygen Flow Rate 2 3 3 08/29/24 13:17 08/29/24 13:27 08/29/24 13:37 Temperature Pulse Rate 80 80 80 Respiratory Rate 18 18 18 Blood Pressure 94/53 L 107/66 118/72 Pulse Oximetry 100 100 100 Oxygen Delivery Nasal Cannula Nasal Cannula Nasal Cannula Oxygen Flow Rate 3 3 3 08/29/24 14:00 08/29/24 14:58 Temperature 97.2 F L Pulse Rate 80 Respiratory Rate 18 Blood Pressure 125/80 Pulse Oximetry 98 98 Oxygen Delivery Nasal Cannula Oxygen Flow Rate 3 Intake/Output Intake/Output: Intake & Output 08/26/24 08/27/24 08/28/24 08/29/24 23:59 23:59 23:59 23:59 Intake Total 2140 1150 2616 100 Output Total 875 1150 Balance 2140 1150 1741 -1050 Meds/Results Medications: Active Medications Generic Name Dose Route Start Last Admin Trade Name Freq PRN Reason Stop Dose Admin Acetaminophen 650 mg 08/25/24 18:34 08/28/24 09:29 Acetaminophen 325 Mg Tablet PO 650 mg Q6H PRN Administration Mild Pain (1-3) or Fever Albuterol 1 puff 08/25/24 22:51 Albuterol Sulfate (*Sp) Aerosol 1 Puff INHALATION Q4H PRN shortness of breath or wheezing Albuterol/Ipratropium 3 ml 08/25/24 18:28 Ipratropium 0.5 Mg/Albuterol Sulfate 2.5 Mg Ampul.Neb 3 Ml INHALATION Q6HRT PRN Shortness Of Breath Or Wheezing Allopurinol 200 mg 08/26/24 08:00 08/29/24 14:13 Allopurinol 100 Mg Tablet PO 200 mg DAILY@0800 JHOANA Administration Amoxicillin/Clavulanate Potassium 1 tablet 08/29/24 21:00 Amoxicillin/Clavulanate K 875-125 Mg Tab PO 09/01/24 09:01 Q12HR JHOANA Atorvastatin Calcium 40 mg 08/26/24 09:00 08/29/24 14:13 Atorvastatin 40 Mg Tablet PO 40 mg DAILY JHOANA Administration Azithromycin 500 mg 08/29/24 21:00 Azithromycin 250 Mg Tablet PO 08/29/24 21:01 ONCE ONE Benzonatate 100 mg 08/25/24 18:28 Benzonatate 100 Mg Capsule PO TID PRN Cough Dextrose 12.5 gm 08/25/24 18:31 Dextrose 50% 25 Gm/50 Ml Syringe IV PUSH PRN PRN Hypoglycemia Protocol Folic Acid 1 mg 08/26/24 09:00 08/29/24 14:13 Folic Acid 1 Mg Tablet PO 1 mg DAILY JHOANA Administration Gabapentin 600 mg 08/26/24 09:00 08/29/24 14:17 Gabapentin 300 Mg Capsule PO Not Given TID JHOANA Glucagon 1 mg 08/25/24 18:31 Glucagon For Inj 1 Mg Vial IM PRN PRN Hypoglycemia Protocol Glucose 15 gm 08/25/24 18:31 Glucose Oral Gel 15 Gm Of Glucse In 37.5 Gm Tube PO PRN PRN Hypoglycemia Protocol Guaifenesin 600 mg 08/25/24 21:00 08/29/24 14:13 Guaifenesin 12 Hr 600 Mg Tabcr PO 600 mg Q12HR JHOANA Administration Dextrose 1,000 mls @ 100 mls/hr 08/25/24 18:31 Dextrose 5% 1,000 Ml IVPB PRN PRN Hypoglycemia Protocol Insulin Aspart 4 - 8 units 08/26/24 08:00 08/29/24 11:33 Insulin Aspart (*Bkc) 100 Units/Ml SUB-Q Not Given TIDWM JHOANA Protocol Insulin Glargine 22 units 08/26/24 21:00 Insulin Glargine (*Bkc) 100 Units/Ml SUB-Q HS JHOANA Levetiracetam 1,000 mg 08/25/24 23:10 08/29/24 08:05 Levetiracetam 500 Mg Tablet PO 1,000 mg Q12HR JHOANA Administration Loratadine 10 mg 08/26/24 09:00 08/29/24 14:14 Loratadine 10 Mg Tablet PO 10 mg QAM JHOANA Administration Montelukast Sodium 10 mg 08/25/24 23:10 08/28/24 20:28 Montelukast Sodium 10 Mg Tablet PO 10 mg HS JHOANA Administration Potassium Chloride 20 meq 08/26/24 08:00 08/29/24 14:13 Potassium Chloride 20 Meq Er Tablet PO 20 meq DAILY@0800 JHOANA Administration Rivaroxaban 20 mg 08/26/24 17:00 08/26/24 17:38 Rivaroxaban 20 Mg Tablet PO Not Given DAILY@1700 [facility] Tamsulosin HCl 0.4 mg 08/25/24 23:15 08/28/24 20:28 Tamsulosin Hcl 0.4 Mg Capsule PO 0.4 mg QHS JHOANA Administration Valsartan 40 mg 08/26/24 09:00 08/26/24 08:54 Valsartan 40 Mg Tablet PO 40 mg DAILY JHOANA Administration Radiology Results: ITS Impressions Chest X-Ray 08/25/24 15:30 IMPRESSION: Left lower lobe pneumonia. Bilateral pneumonitis versus pulmonary edema. Labs Labs: Laboratory Results - last 24 hr 08/28/24 08/28/24 08/29/24 16:52 19:46 05:46 WBC 5.8 RBC 2.91 L Hgb 8.9 L Hct 29.5 L MCV 101.4 H MCH 30.6 MCHC 30.2 L RDW 14.5 Plt Count 256 MPV 9.8 Immature Gran % (Auto) 0.3 Neut % (Auto) 60.5 Lymph % (Auto) 22.5 [place] % (Auto) 10.0 H Eos % (Auto) 6.2 H Baso % (Auto) 0.5 Lymph # (Auto) 1.30 [place] # (Auto) 0.6 Eos # (Auto) 0.4 H Baso # (Auto) 0.0 Abs Immat Gran (auto) 0.02 Absolute Neuts (auto) 3.5 Absolute Nucleated RBC 0.000 Nucleated RBC % 0.0 Sodium 140 Potassium 4.4 Chloride Carbon Dioxide Anion Gap BUN Creatinine Estim Creat Clear Calc Estimated GFR Glucose POC Capillary Glucose 101 150 H Calcium Magnesium Total Bilirubin AST ALT Alkaline Phosphatase Total Protein Albumin 08/29/24 08/29/24 08/29/24 05:46 07:25 11:26 WBC RBC Hgb Hct MCV MCH MCHC RDW Plt Count MPV Immature Gran % (Auto) Neut % (Auto) Lymph % (Auto) [place] % (Auto) Eos % (Auto) Baso % (Auto) Lymph # (Auto) [place] # (Auto) Eos # (Auto) Baso # (Auto) Abs Immat Gran (auto) Absolute Neuts (auto) Absolute Nucleated RBC Nucleated RBC % Sodium Potassium 4.4 Chloride 107 Carbon Dioxide 29 Anion Gap 4 BUN 12 Creatinine 0.99 Estim Creat Clear Calc 88 Estimated GFR > 60 Glucose 102 POC Capillary Glucose 108 H 90 Calcium 9.9 Magnesium 1.7 Total Bilirubin 0.5 AST 28 ALT 18 Alkaline Phosphatase 93 Total Protein 7.0 Albumin 3.1 L
[2024-08-29 16:24] LABS: Glucose Point of Care 122 mg/dl (65-105)
[2024-08-29 21:36] LABS: Glucose Point of Care 103 mg/dl (65-105)
[2024-08-29] MEDS: TAMSULOSIN HCL 0.4 MG CAPSULE PO (21:36)
[2024-08-29] MEDS: AMOXICILLIN/CLAVULANATE K 875-125 MG TAB 1 TABLET PO (21:36)
[2024-08-29] MEDS: ACETAMINOPHEN 325 MG TABLET 650 MG PO (21:36)
[2024-08-29] MEDS: MONTELUKAST SODIUM 10 MG TABLET PO (21:38)
[2024-08-29] MEDS: AZITHROMYCIN 250 MG TABLET 500 MG PO (21:42)
[2024-08-29] MEDS: INSULIN GLARGINE (*BKC) 100 UNITS/ML 22 UNITS SUB-Q (21:42)
[2024-08-30 05:42] VITALS: BP 128/75; PULSE 79; RESP 20; TEMP 36.6; O2SAT 97
[2024-08-30 06:18] LABS: Basophils Percent Auto 0.5 % (0.2-1.2); Eosinophils Absolute Auto 0.3 K/mm3 (0-0.3); Eosinophils Percent Auto 5.8 % (0-4.4); Hematocrit 28.6 % (42.0-52.0); Hemoglobin 8.6 g/dL (14.0-18.0); Immature Granulocyte Absolute 0.03 K/mm3 (0.00-0.031); Immature Granulocyte Percent A 0.5 % (0-0.5); Lymphocytes Absolute Auto 1.47 K/mm3 (0.9-3.2); Lymphocytes Percent Auto 24.9 % (18.3-44.2); Mean Corpuscular HGB Conc 30.1 g/dl (32-36); Mean Corpuscular Hemoglobin 30.4 pg (26-34); Mean Corpuscular Volume 101.1 fl (80-100); Mean Platelet Volume 9.9 fl (7.4-10.4); Monocytes Absolute Auto 0.5 K/mm3 (0.1-0.6); Monocytes Percent Auto 9.1 % (2.6-8.5); Neutrophils Absolute Auto 3.5 K/mm3 (1.3-6.7); Neutrophils Percent Auto 59.2 % (45.5-73.1); Platelet Count Result 242 k/mm3 (150-375); Red Blood Count 2.83 M/mm3 (4.6-6.20); Red Cell Distribution Width 14.2 % (11.5-14.5); White Blood Count 5.9 K/mm3 (4.5-10.0)
[2024-08-30 06:26] LABS: Alanine Aminotransferase 16 U/L (6-50); Alkaline Phosphatase 104 U/L (38-126); Anion Gap 7 mmol/L (4-12); Aspartate Amino Transferase 21 U/L (17-59); Bilirubin,Total 0.6 mg/dL (0.2-1.3); Blood Urea Nitrogen 9 mg/dL (9-20); Calcium 9.5 mg/dL (8.4-10.2); Carbon Dioxide 25 mmol/L (22-30); Chloride 108 mmol/L (98-107); Estimated CRCL calculation 85 ml/min; Estimated Glomerular Filt Rate > 60; Glucose 92 mg/dL (65-110); Magnesium 1.6 mg/dL (1.6-2.3); Potassium 4.2 mmol/L (3.4-5.0); Sodium 140 mmol/L (137-145)
[2024-08-30 06:40] LABS: Glucose Point of Care 73 mg/dl (65-105)
[2024-08-30 06:40] LABS: Glucose Point of Care 79 mg/dl (65-105)
[2024-08-30 08:00] VITALS: O2SAT 93
[2024-08-30 08:02] LABS: Glucose Point of Care 84 mg/dl (65-105)
[2024-08-30] MEDS: FOLIC ACID 1 MG TABLET PO (09:00)
[2024-08-30] MEDS: levETIRAcetam 500 MG TABLET 1000 MG PO ×2 (09:00→21:04)
[2024-08-30] MEDS: AMOXICILLIN/CLAVULANATE K 875-125 MG TAB 1 TABLET PO ×2 (09:00→21:04)
[2024-08-30] MEDS: guaiFENesin 12 HR 600 MG TABCR PO ×2 (09:01→21:03)
[2024-08-30] MEDS: ATORVASTATIN 40 MG TABLET PO (09:01)
[2024-08-30] MEDS: GABAPENTIN 300 MG CAPSULE 600 MG PO ×3 (09:01→17:14)
[2024-08-30] MEDS: allopurinoL 100 MG TABLET 200 MG PO (09:01)
[2024-08-30] MEDS: POTASSIUM CHLORIDE 20 MEQ ER TABLET PO (09:01)
[2024-08-30] MEDS: LORATADINE 10 MG TABLET PO (09:01)
[2024-08-30 11:08] LABS: Glucose Point of Care 151 mg/dl (65-105)
[2024-08-30 14:00] VITALS: BP 138/81; PULSE 80; RESP 20; TEMP 36.1; O2SAT 97
--- NOTE | 2024-08-30 14:00 | P.CDI_ITS ---
CDI Query Clarification Request Please clarify the status of the patient's anemia, if known. Anemia has been documented, please specify type of anemia if known: * Acute blood loss anemia * Chronic blood loss anemia * Anemia of chronic disease (CKD,neoplasm, other) * Aplastic anemia * Dilutional anemia * Iron Deficiency anemia * Pernicious anemia * Nutritional anemia (e.g., scorbutic anemia) * Other anemia * Unknown/unable to determine The chart reflects the following: ACUTE ON CHRONIC ANEMIA PREVIOUS HEMOGLOBIN OF 10.8 ON MAY 2024. HEMOGLOBIN 6.4 ON ADMISSION. STATUS POST TRANSFUSION STOOL OCCULT BLOOD POSITIVE (1) GI bleed: Code(s): K92.2 - Gastrointestinal hemorrhage, unspecified Status: Acute Assessment and Plan: The patient's iron deficiency anemia remains unexplained by colonoscopy findings. However, recent endoscopy revealed gastric and duodenal erosions, which are considered the most probable etiology. He is medically stable for discharge from gastroenterology services. A three-month course of oral iron supplementation is recommended, with repeat hemoglobin and iron level assessment at the GI clinic in three months. A daily PPI is also advised at discharge. <Radha Dennis RN - Last Filed: 08/30/24 14:03> Provider Comments Acute blood loss anemia <Samuel Remy MD - Last Filed: 08/30/24 18:39>
--- NOTE | 2024-08-30 14:03 | P.PNIM_ITS ---
Progress Note: A&P Assessment and Plan (1) Anemia: Qualifiers: Anemia type: unspecified type Qualified Code(s): D64.9 - Anemia, unspecified Code(s): D64.9 - Anemia, unspecified Status: Acute (2) Pneumonia: Qualifiers: Laterality: left Lung location: lower lobe of lung Pneumonia type: due to unspecified organism Qualified Code(s): J18.9 - Pneumonia, unspecified organism Code(s): J18.9 - Pneumonia, unspecified organism Status: Acute (3) Acute kidney injury: Code(s): N17.9 - Acute kidney failure, unspecified Status: Acute (4) CHF (congestive heart failure): Qualifiers: Heart failure chronicity: acute Heart failure type: unspecified Qualified Code(s): I50.9 - Heart failure, unspecified Code(s): I50.9 - Heart failure, unspecified Status: Chronic (5) Type 2 diabetes mellitus: Code(s): E11.9 - Type 2 diabetes mellitus without complications Status: Chronic (6) Hypertension: Qualifiers: Hypertension type: primary hypertension Qualified Code(s): I10 - Essential (primary) hypertension Code(s): I10 - Essential (primary) hypertension Status: Chronic Plan 63 y/o M presents here with hypotension and weakness with PMH of CHF (EF 40-45% 04/2024), CVA, diabetes, hyperlipidemia, hypertension, Parkinson's disease, depression, gout, HTN, BPH, chronic AFib, coronary artery disease. The patient presents here from [facility] via EMS for further evaluation of low blood pressure and weakness. He reports he was attending physical therapy when he stood up and became very weak and shaky. The patient's blood pressure was checked which showed it was low, no exact number reported. EMS was contacted and upon their arrival the patient was hypotensive with a systolic in the 80s per the ED provider who spoke with EMS. He currently reports the low blood pressure and weakness are accompanied by shortness of breath, cough (deep, dry), chills. He denies fever, nausea, vomiting, or diarrhea. Initial lab work showed a hemoglobin of 6.4 (baseline in 2023 was mid 7). He reports fatigue (worsened in the last 4-5 days). He reports he does not look at his stool and is unsure if his stool has been black/tarry. He is currently on Xarelto. Initial VS at presentation: 97.6? F, HR 81, R 26, 125/47, and 97% on 3L NC. ED workup showed: WBC 14.6, hemoglobin 6.4, INR 1.9, creatinine 1.9 and GFR 36 (previously 1.2 and GFR >60, May 2024), CRP 1.8. CXR showed left lower lobe pneumonia, bilateral pneumonitis versus pulmonary edema. ACUTE ON CHRONIC ANEMIA PREVIOUS HEMOGLOBIN OF 10.8 ON MAY 2024. HEMOGLOBIN 6.4 ON ADMISSION. STATUS POST TRANSFUSION STOOL OCCULT BLOOD POSITIVE GI CONSULTED FOBT POSITIVE STOOL SUGGESTIVE OF GI BLEED STATUS POST EGD WITH MILD LOCALIZED ACUTE EROSIVE GASTRITIS IN THE ANTRUM MODERATE LOCALIZED EROSIVE DUODENITIS IN THE DUODENAL BULB. CONTINUE PPI. COLONOSCOPY ATTEMPTED HOWEVER NOT PERFORMED DUE TO NO PREPPED. IRON STUDIES WITH LOW IRON AND LOW IRON SATURATION FERRITIN OF 56 TSH NORMAL. B12 NORMAL AT 789 FOLATE MORE THAN 20. Status post colonoscopy 08/29/2024: Few diverticula left colon to 10 mm to 16 mm pedunculated polyps in transverse colon which were completely excised. LEFT LOWER LOBE PNEUMONIA PER CHEST X-RAY DOES REPORT SOME COUGH. STARTED ON CEFTRIAXONE AND AZITHROMYCIN.. Will switch antibiotics to oral. NASAL MRSA CAME BACK POSITIVE. PCR POSITIVE FOR COVID WELL. CONTINUE SUPPORTIVE TREATMENT. On Mucinex. Will schedule albuterol inhaler COVID POSITIVE HYPOXIA FAIRLY STABLE. HAS HAVE RENAL DYSFUNCTION. WILL AVOID REMDESIVIR. WILL HOLD OFF ON DEXAMETHASONE WITH ACUTE ANEMIA AND GASTRIC EROSIONS UNLESS WORSENS. Respiratory status improving/stable NANY CREATININE 1.9 BASELINE 1.2. RECEIVE SOME IV FLUID IN THE ER HOLD ASA INHIBITOR AND DIURETICS NEPHROLOGY CONSULTED. Creatinine continues to improve back to baseline HISTORY OF CVA MAY 2024 CONGESTIVE HEART FAILURE EF 40-45% 04/2024 ON LASIX AT HOME which is placed on hold. Will need to resume at discharge DIABETES ON INSULIN A1C 8.4% ON 04/2024. Recheck A1c. HYPERLIPIDEMIA HYPERTENSION: BLOOD PRESSURE SOFT ON ARRIVAL HOLD BLOOD PRESSURE MEDICATION PARKINSON'S DISEASE HISTORY OF OROPHARYNGEAL DYSPHAGIA DEPRESSION GOUT BPH CHRONIC AFIB CORONARY ARTERY DISEASE Diet: Diabetic, GI Prophylaxis: Pantoprazole IV DVT Prophylaxis: SCDs XARELTO ON HOLD DUE TO ANEMIA. Will resume Xarelto if okay with GI Lines: Peripheral Code Status: Full code Subjective Date/time seen: 08/30/24 14:03 Interval history: Patient is bit more somnolent today. No other events reported on 2 L oxygen wh ich is stable. Review of Systems Review of Systems: All systems reviewed & are unremarkable except as noted in HPI and below Exam Narrative: GENERAL APPEARANCE: WELL-DEVELOPED, WELL-NOURISHED SKIN: NORMAL COLOR, LEFT HEEL 0.5 X0.5 CM SUPERFICIAL ULCER AT THE HEEL AREA, wrapped with dressing, NO DISCHARGE, NO ERYTHEMA, NO LOCALIZED TENDERNESS HEAD: NORMOCEPHALIC, NONTRAUMATIC EYES: CLEAR CONJUNCTIVA ENT: OROPHARYNX NORMAL, EARS NORMAL, NOSE NORMAL, 3 L NASAL CANNULA ON NECK: SUPPLE, NONTENDER CHEST AND RESPIRATORY: AIRWAY PATENT, NO RESPIRATORY DISTRESS, NO ACCESSORY MUSCLE USE, COARSE BREATH SOUNDS BILATERALLY HEART: REGULAR RATE/RHYTHM ABDOMEN: SOFT, NONTENDER, NO ORGANOMEGALY, QUIET BOWEL SOUNDS VASCULAR: NORMAL PERIPHERAL PULSES, NORMAL CAPILLARY REFILL. MUSCULOSKELETAL: RIGHT BELOW-KNEE AMPUTATION, NO SIGNS OF INFECTION NEUROLOGIC: Somnolent, LEFT-SIDED WEAKNESS FROM PREVIOUS STROKE Objective Data Vital Signs Vital Signs: Vital Signs - 24 hr 08/29/24 14:58 08/29/24 21:42 08/30/24 05:42 Temperature 97.9 F 97.9 F Pulse Rate 80 79 Respiratory Rate 20 20 Blood Pressure 128/75 128/75 Pulse Oximetry 98 100 97 Oxygen Delivery Nasal Cannula Oxygen Flow Rate 3 08/30/24 08:00 Temperature Pulse Rate Respiratory Rate Blood Pressure Pulse Oximetry 93 Oxygen Delivery Nasal Cannula Oxygen Flow Rate 2 Intake/Output Intake/Output: Intake & Output 08/27/24 08/28/24 08/29/24 08/30/24 23:59 23:59 23:59 23:59 Intake Total 1150 2616 450 840 Output Total 875 1950 900 Balance 1150 1741 -1500 -60 Meds/Results Medications: Active Medications Generic Name Dose Route Start Last Admin Trade Name Freq PRN Reason Stop Dose Admin Acetaminophen 650 mg 08/25/24 18:34 08/29/24 21:36 Acetaminophen 325 Mg Tablet PO 650 mg Q6H PRN Administration Mild Pain (1-3) or Fever Albuterol 1 puff 08/25/24 22:51 Albuterol Sulfate (*Sp) Aerosol 1 Puff INHALATION Q4H PRN shortness of breath or wheezing Albuterol/Ipratropium 3 ml 08/25/24 18:28 Ipratropium 0.5 Mg/Albuterol Sulfate 2.5 Mg Ampul.Neb 3 Ml INHALATION Q6HRT PRN Shortness Of Breath Or Wheezing Allopurinol 200 mg 08/26/24 08:00 08/30/24 09:01 Allopurinol 100 Mg Tablet PO 200 mg DAILY@0800 JHOANA Administration Amoxicillin/Clavulanate Potassium 1 tablet 08/29/24 21:00 08/30/24 09:00 Amoxicillin/Clavulanate K 875-125 Mg Tab PO 09/01/24 09:01 1 tablet Q12HR JHOANA Administration Atorvastatin Calcium 40 mg 08/26/24 09:00 08/30/24 09:01 Atorvastatin 40 Mg Tablet PO 40 mg DAILY JHOANA Administration Benzonatate 100 mg 08/25/24 18:28 Benzonatate 100 Mg Capsule PO TID PRN Cough Dextrose 12.5 gm 08/25/24 18:31 Dextrose 50% 25 Gm/50 Ml Syringe IV PUSH PRN PRN Hypoglycemia Protocol Folic Acid 1 mg 08/26/24 09:00 08/30/24 09:00 Folic Acid 1 Mg Tablet PO 1 mg DAILY JHOANA Administration Gabapentin 600 mg 08/26/24 09:00 08/30/24 12:22 Gabapentin 300 Mg Capsule PO 600 mg TID JHOANA Administration Glucagon 1 mg 08/25/24 18:31 Glucagon For Inj 1 Mg Vial IM PRN PRN Hypoglycemia Protocol Glucose 15 gm 08/25/24 18:31 Glucose Oral Gel 15 Gm Of Glucse In 37.5 Gm Tube PO PRN PRN Hypoglycemia Protocol Guaifenesin 600 mg 08/25/24 21:00 08/30/24 09:01 Guaifenesin 12 Hr 600 Mg Tabcr PO 600 mg Q12HR JHOANA Administration Dextrose 1,000 mls @ 100 mls/hr 08/25/24 18:31 Dextrose 5% 1,000 Ml IVPB PRN PRN Hypoglycemia Protocol Insulin Aspart 4 - 8 units 08/26/24 08:00 08/30/24 11:20 Insulin Aspart (*Bkc) 100 Units/Ml SUB-Q Not Given TIDWM JHOANA Protocol Insulin Glargine 22 units 08/26/24 21:00 08/29/24 21:42 Insulin Glargine (*Bkc) 100 Units/Ml SUB-Q 22 units HS JHOANA Administration Levetiracetam 1,000 mg 08/25/24 23:10 08/30/24 09:00 Levetiracetam 500 Mg Tablet PO 1,000 mg Q12HR JHOANA Administration Loratadine 10 mg 08/26/24 09:00 08/30/24 09:01 Loratadine 10 Mg Tablet PO 10 mg QAM JHOANA Administration Montelukast Sodium 10 mg 08/25/24 23:10 08/29/24 21:38 Montelukast Sodium 10 Mg Tablet PO 10 mg HS JHOANA Administration Potassium Chloride 20 meq 08/26/24 08:00 08/30/24 09:01 Potassium Chloride 20 Meq Er Tablet PO 20 meq DAILY@0800 JHOANA Administration Rivaroxaban 20 mg 08/26/24 17:00 08/26/24 17:38 Rivaroxaban 20 Mg Tablet PO Not Given DAILY@1700 [facility] Tamsulosin HCl 0.4 mg 08/25/24 23:15 08/29/24 21:36 Tamsulosin Hcl 0.4 Mg Capsule PO 0.4 mg QHS JHOANA Administration Valsartan 40 mg 08/26/24 09:00 08/26/24 08:54 Valsartan 40 Mg Tablet PO 40 mg DAILY JHOANA Administration Radiology Results: ITS Impressions Chest X-Ray 08/25/24 15:30 IMPRESSION: Left lower lobe pneumonia. Bilateral pneumonitis versus pulmonary edema. Labs Labs: Laboratory Results - last 24 hr 08/29/24 08/29/24 08/29/24 12:58 13:29 16:21 WBC RBC Hgb Hct MCV MCH MCHC RDW Plt Count MPV Immature Gran % (Auto) Neut % (Auto) Lymph % (Auto) [place] % (Auto) Eos % (Auto) Baso % (Auto) Lymph # (Auto) [place] # (Auto) Eos # (Auto) Baso # (Auto) Abs Immat Gran (auto) Absolute Neuts (auto) Absolute Nucleated RBC Nucleated RBC % Sodium Potassium Chloride Carbon Dioxide Anion Gap BUN Creatinine Estim Creat Clear Calc Estimated GFR Glucose POC Capillary Glucose 73 79 122 H Calcium Magnesium Total Bilirubin AST ALT Alkaline Phosphatase Total Protein Albumin 08/29/24 08/30/24 08/30/24 21:12 05:41 07:45 WBC 5.9 RBC 2.83 L Hgb 8.6 L Hct 28.6 L MCV 101.1 H MCH 30.4 MCHC 30.1 L RDW 14.2 Plt Count 242 MPV 9.9 Immature Gran % (Auto) 0.5 Neut % (Auto) 59.2 Lymph % (Auto) 24.9 [place] % (Auto) 9.1 H Eos % (Auto) 5.8 H Baso % (Auto) 0.5 Lymph # (Auto) 1.47 [place] # (Auto) 0.5 Eos # (Auto) 0.3 Baso # (Auto) 0.0 Abs Immat Gran (auto) 0.03 Absolute Neuts (auto) 3.5 Absolute Nucleated RBC 0.000 Nucleated RBC % 0.0 Sodium 140 Potassium 4.2 Chloride 108 H Carbon Dioxide 25 Anion Gap 7 BUN 9 Creatinine 1.02 Estim Creat Clear Calc 85 Estimated GFR > 60 Glucose 92 POC Capillary Glucose 103 84 Calcium 9.5 Magnesium 1.6 Total Bilirubin 0.6 AST 21 ALT 16 Alkaline Phosphatase 104 Total Protein 7.0 Albumin 3.0 L 08/30/ 11:04 WBC RBC Hgb Hct MCV MCH MCHC RDW Plt Count MPV Immature Gran % (Auto) Neut % (Auto) Lymph % (Auto) [place] % (Auto) Eos % (Auto) Baso % (Auto) Lymph # (Auto) [place] # (Auto) Eos # (Auto) Baso # (Auto) Abs Immat Gran (auto) Absolute Neuts (auto) Absolute Nucleated RBC Nucleated RBC % Sodium Potassium Chloride Carbon Dioxide Anion Gap BUN Creatinine Estim Creat Clear Calc Estimated GFR Glucose POC Capillary Glucose 151 H Calcium Magnesium Total Bilirubin AST ALT Alkaline Phosphatase Total Protein Albumin
--- NOTE | 2024-08-30 14:05 | P.CDI_ITS ---
CDI Query Clarification Request Please specify type and acuity of heart failure if known. * Acute * Chronic * Acute on Chronic * Unknown * Systolic * Diastolic * Combined Systolic and Diastolic * Unknown The medical chart reflects the following: (4) CHF (congestive heart failure): Qualifiers: Heart failure chronicity: acute Heart failure type: unspecified Qualified Code(s): I50.9 - Heart failure, unspecified Code(s): I50.9 - Heart failure, unspecified Status: Chronic <Radha Dennis RN - Last Filed: 08/30/24 14:06> Provider Comments Chronic diastolic <Samuel Remy MD - Last Filed: 08/30/24 18:38>
[2024-08-30] MEDS: FUROSEMIDE 40 MG TABLET PO (15:37)
[2024-08-30 15:52] LABS: Hemoglobin A1C 5.7 % (<5.7)
[2024-08-30 16:23] LABS: Glucose Point of Care 136 mg/dl (65-105)
[2024-08-30] MEDS: ALBUTEROL SULFATE (*SP) AEROSOL 1 PUFF INHALATION ×2 (16:33→20:39)
[2024-08-30 16:34] VITALS: O2SAT 96
[2024-08-30] MEDS: RIVAROXABAN 20 MG TABLET PO (17:14)
[2024-08-30 20:40] VITALS: O2SAT 95
[2024-08-30 20:46] LABS: Glucose Point of Care 103 mg/dl (65-105)
[2024-08-30 20:48] VITALS: BP 122/72; PULSE 80; RESP 17; TEMP 36.4; O2SAT 94
[2024-08-30] MEDS: TAMSULOSIN HCL 0.4 MG CAPSULE PO (21:02)
[2024-08-30] MEDS: ACETAMINOPHEN 325 MG TABLET 650 MG PO (21:02)
[2024-08-30] MEDS: BENZONATATE 100 MG CAPSULE PO (21:03)
[2024-08-30] MEDS: MONTELUKAST SODIUM 10 MG TABLET PO (21:08)
[2024-08-31] VITALS (8 sets, daily range): BP systolic 117–130; BP diastolic 75–80; PULSE 79–81; RESP 16–20; TEMP 36.4–37.1; O2SAT 91–97
[2024-08-31] MEDS: ALBUTEROL SULFATE (*SP) AEROSOL 1 PUFF INHALATION ×5 (03:20→23:50)
[2024-08-31 05:49] LABS: Basophils Percent Auto 0.4 % (0.2-1.2); Eosinophils Absolute Auto 0.4 K/mm3 (0-0.3); Eosinophils Percent Auto 8.6 % (0-4.4); Hematocrit 30.6 % (42.0-52.0); Hemoglobin 9.3 g/dL (14.0-18.0); Immature Granulocyte Absolute 0.01 K/mm3 (0.00-0.031); Immature Granulocyte Percent A 0.2 % (0-0.5); Lymphocytes Absolute Auto 1.56 K/mm3 (0.9-3.2); Lymphocytes Percent Auto 31.1 % (18.3-44.2); Mean Corpuscular HGB Conc 30.4 g/dl (32-36); Mean Corpuscular Hemoglobin 30.5 pg (26-34); Mean Corpuscular Volume 100.3 fl (80-100); Monocytes Absolute Auto 0.5 K/mm3 (0.1-0.6); Monocytes Percent Auto 9.4 % (2.6-8.5); Neutrophils Absolute Auto 2.5 K/mm3 (1.3-6.7); Neutrophils Percent Auto 50.3 % (45.5-73.1); Platelet Count Result 258 k/mm3 (150-375); Red Blood Count 3.05 M/mm3 (4.6-6.20); Red Cell Distribution Width 14.2 % (11.5-14.5)
[2024-08-31 06:03] LABS: Alanine Aminotransferase 15 U/L (6-50); Albumin Level 3.1 g/dL (3.5-5.1); Alkaline Phosphatase 110 U/L (38-126); Anion Gap 4 mmol/L (4-12); Aspartate Amino Transferase 16 U/L (17-59); Bilirubin,Total 0.5 mg/dL (0.2-1.3); Blood Urea Nitrogen 9 mg/dL (9-20); Calcium 9.9 mg/dL (8.4-10.2); Carbon Dioxide 31 mmol/L (22-30); Chloride 105 mmol/L (98-107); Estimated CRCL calculation 82 ml/min; Estimated Glomerular Filt Rate > 60; Glucose 138 mg/dL (65-110); Magnesium 1.5 mg/dL (1.6-2.3); Sodium 140 mmol/L (137-145)
[2024-08-31 07:46] LABS: Glucose Point of Care 117 mg/dl (65-105)
[2024-08-31] MEDS: POTASSIUM CHLORIDE 20 MEQ ER TABLET PO (09:15)
[2024-08-31] MEDS: ATORVASTATIN 40 MG TABLET PO (09:15)
[2024-08-31] MEDS: LORATADINE 10 MG TABLET PO (09:15)
[2024-08-31] MEDS: PANTOPRAZOLE 40 MG TABLET PO (09:16)
[2024-08-31] MEDS: AMOXICILLIN/CLAVULANATE K 875-125 MG TAB 1 TABLET PO ×2 (09:19→20:43)
[2024-08-31] MEDS: levETIRAcetam 500 MG TABLET 1000 MG PO ×2 (09:19→20:43)
[2024-08-31] MEDS: GABAPENTIN 300 MG CAPSULE 600 MG PO ×3 (09:19→16:27)
[2024-08-31] MEDS: guaiFENesin 12 HR 600 MG TABCR PO ×2 (09:19→20:43)
[2024-08-31] MEDS: allopurinoL 100 MG TABLET 200 MG PO (09:19)
[2024-08-31] MEDS: FUROSEMIDE 40 MG TABLET PO (09:19)
[2024-08-31] MEDS: FERROUS SULFATE 325 MG TABLET DR PO (09:19)
[2024-08-31] MEDS: FOLIC ACID 1 MG TABLET PO (09:19)
[2024-08-31 11:37] LABS: Glucose Point of Care 111 mg/dl (65-105)
--- NOTE | 2024-08-31 12:05 | PCSTNOTE ---
Please refer to the Bedside Swallow Evaluation in the EMR. Please note, silent aspiration cannot be ruled out at bedside.
--- NOTE | 2024-08-31 15:40 | PCSTNOTE ---
On 08/31/24, the student, Myrtle Rojas, provided care and completed [facility] documentation on this patient. I have reviewed the student's documentation and agree with the findings.
[2024-08-31] MEDS: RIVAROXABAN 20 MG TABLET PO (16:28)
[2024-08-31 16:34] LABS: Glucose Point of Care 163 mg/dl (65-105)
--- NOTE | 2024-08-31 17:51 | PM.IMPN ---
Progress Note: A&P Assessment and Plan (1) Anemia: Qualifiers: Anemia type: unspecified type Qualified Code(s): D64.9 - Anemia, unspecified Code(s): D64.9 - Anemia, unspecified Status: Acute (2) Pneumonia: Qualifiers: Laterality: left Lung location: lower lobe of lung Pneumonia type: due to unspecified organism Qualified Code(s): J18.9 - Pneumonia, unspecified organism Code(s): J18.9 - Pneumonia, unspecified organism Status: Acute (3) Acute kidney injury: Code(s): N17.9 - Acute kidney failure, unspecified Status: Acute (4) CHF (congestive heart failure): Qualifiers: Heart failure chronicity: acute Heart failure type: unspecified Qualified Code(s): I50.9 - Heart failure, unspecified Code(s): I50.9 - Heart failure, unspecified Status: Chronic (5) Type 2 diabetes mellitus: Code(s): E11.9 - Type 2 diabetes mellitus without complications Status: Chronic (6) Hypertension: Qualifiers: Hypertension type: primary hypertension Qualified Code(s): I10 - Essential (primary) hypertension Code(s): I10 - Essential (primary) hypertension Status: Chronic Plan Anemia - acute blood loss with chronic iron deficiency anemia. He was on Xarelto on admission. Hgb 10.8 in May and 6.4 on admission. Hemoccult positive. B12 normal. Iron deficiency noted. He was transfused 1U pRBC on 08/25. GI consulted. EGD 08/26 with mild localized acute erosive gastritis in the antrum and moderate erosive duodenitis in the duodenal bulb. Colonoscopy showing diverticulosis and 2 transverse colon polyps that were removed. Will start PPI. Add iron. Tolerating the Xarelto Pneumonia- LLL PNA per CXR. Started on Rocephin and Azithromycin but now switched to Augmentin. MRSA nasal swab positive. Add Doxycycline COVID Positive - COVID + on 08/26. Hypoxic on 2L. No treatment initiated with plan for supportive care. No Remdesivir due to renal function and no steroids due to GI issues. Continue Mucinex and albuterol inhaler. Wean O2 as tolerated NANY - Cr 1.9 on admission. [place] related to anemia, medications and infection. Cr better at 1. Creatinine back to baseline Hx of CVA - CVA in May 2024. CHF - Chronic systolic CHF. EF 40-45% 04/2024. Was on Lasix which is placed on hold. Will need to resume at discharge DM - A1C 8.4% ON 04/2024. Recheck A1c now 5.7%. Glucose reasonable. HTN - BP stable. Parkinson Disease with dysphagia - ST consulted due to PNA. ST felt patient did well with bedside and did not recommend further evaluation. Chronic AFib - rate controlled. Xarelto resumed. EKG showing paced rhythm Disp - ready for discahrge DVT Prophylaxis: Xarelto Code Status: Full code Subjective Date/time seen: 08/31/24 17:51 Interval history: 64yo male with CHF, DM and HTN here for hypotension and weakness. Assuming care. Chart reviewed. Patient is not wear oxygen at home. Denies feeling short of breath. He has a cough productive clear sputum. No chest pain. No nausea or vomiting. Exam Narrative: AF 98.7 119/76 80 20 97% ra Gen - NARD Chest -scattered rhonchi otherwise clear. CV - RRR S1/S2 Abd - Soft, NT/ND, Positive BS Ext - No left pedal edema. Right BKA. Neuro -mild left-sided weakness Psych - Nml mood and affect Skin - Warm and dry Objective Data Vital Signs Vital Signs: Vital Signs - 24 hr 08/30/24 20:40 08/30/24 20:48 08/31/24 06:00 Temperature 97.6 F 97.5 F L Pulse Rate 80 79 Respiratory Rate 17 16 Blood Pressure 122/72 117/75 Pulse Oximetry 95 94 91 Oxygen Delivery Nasal Cannula Oxygen Flow Rate 2 08/31/24 08:00 08/31/24 09:38 08/31/24 09:38 Temperature Pulse Rate 80 81 Respiratory Rate 20 Blood Pressure Pulse Oximetry 92 94 Oxygen Delivery Nasal Cannula Nasal Cannula Oxygen Flow Rate 2 2 08/31/24 14:00 Temperature 98.7 F Pulse Rate 80 Respiratory Rate 20 Blood Pressure 119/76 Pulse Oximetry 97 Oxygen Delivery Oxygen Flow Rate Intake/Output Intake/Output: Intake & Output 08/28/24 08/29/24 08/30/24 08/31/24 23:59 23:59 23:59 23:59 Intake Total 2616 160 027 7612 Output Total 875 1950 1100 2101 Balance 1741 -1500 -260 555 Meds/Results Medications: Active Medications Generic Name Dose Route Start Last Admin Trade Name Freq PRN Reason Stop Dose Admin Acetaminophen 650 mg 08/25/24 18:34 08/30/24 21:02 Acetaminophen 325 Mg Tablet PO 650 mg Q6H PRN Administration Mild Pain (1-3) or Fever Albuterol 1 puff 08/30/24 16:00 08/31/24 15:20 Albuterol Sulfate (*Sp) Aerosol 1 Puff INHALATION 1 puff Q4HRT JHOANA Administration Albuterol/Ipratropium 3 ml 08/25/24 18:28 Ipratropium 0.5 Mg/Albuterol Sulfate 2.5 Mg Ampul.Neb 3 Ml INHALATION Q6HRT PRN Shortness Of Breath Or Wheezing Allopurinol 200 mg 08/26/24 08:00 08/31/24 09:19 Allopurinol 100 Mg Tablet PO 200 mg DAILY@0800 JHOANA Administration Amoxicillin/Clavulanate Potassium 1 tablet 08/29/24 21:00 08/31/24 09:19 Amoxicillin/Clavulanate K 875-125 Mg Tab PO 09/01/24 09:01 1 tablet Q12HR JHOANA Administration Atorvastatin Calcium 40 mg 08/26/24 09:00 08/31/24 09:15 Atorvastatin 40 Mg Tablet PO 40 mg DAILY JHOANA Administration Benzonatate 100 mg 08/25/24 18:28 08/30/24 21:03 Benzonatate 100 Mg Capsule PO 100 mg TID PRN Administration Cough Dextrose 12.5 gm 08/25/24 18:31 Dextrose 50% 25 Gm/50 Ml Syringe IV PUSH PRN PRN Hypoglycemia Protocol Ferrous Sulfate 325 mg 08/31/24 09:00 08/31/24 09:19 Ferrous Sulfate [address] PO 325 mg DAILY JHOANA Administration Folic Acid 1 mg 08/26/24 09:00 08/31/24 09:19 Folic Acid 1 Mg Tablet PO 1 mg DAILY JHOANA Administration Furosemide 40 mg 08/30/24 14:55 08/31/24 09:19 Furosemide 40 Mg Tablet PO 40 mg DAILY JHOANA Administration Gabapentin 600 mg 08/26/24 09:00 08/31/24 16:27 Gabapentin 300 Mg Capsule PO 600 mg TID JHOANA Administration Glucagon 1 mg 08/25/24 18:31 Glucagon For Inj 1 Mg Vial IM PRN PRN Hypoglycemia Protocol Glucose 15 gm 08/25/24 18:31 Glucose Oral Gel 15 Gm Of Glucse In 37.5 Gm Tube PO PRN PRN Hypoglycemia Protocol Guaifenesin 600 mg 08/25/24 21:00 08/31/24 09:19 Guaifenesin 12 Hr 600 Mg Tabcr PO 600 mg Q12HR JHOANA Administration Dextrose 1,000 mls @ 100 mls/hr 08/25/24 18:31 Dextrose 5% 1,000 Ml IVPB PRN PRN Hypoglycemia Protocol Insulin Aspart 4 - 8 units 08/26/24 08:00 08/31/24 16:36 Insulin Aspart (*Bkc) 100 Units/Ml SUB-Q Not Given TIDWM JHOANA Protocol Insulin Glargine 16 units 08/30/24 21:00 08/30/24 21:05 Insulin Glargine (*Bkc) 100 Units/Ml SUB-Q Not Given HS JHOANA Levetiracetam 1,000 mg 08/25/24 23:10 08/31/24 09:19 Levetiracetam 500 Mg Tablet PO 1,000 mg Q12HR JHOANA Administration Loratadine 10 mg 08/26/24 09:00 08/31/24 09:15 Loratadine 10 Mg Tablet PO 10 mg QAM JHOANA Administration Montelukast Sodium 10 mg 08/25/24 23:10 08/30/24 21:08 Montelukast Sodium 10 Mg Tablet PO 10 mg HS JHOANA Administration Pantoprazole Sodium 40 mg 08/31/24 09:00 08/31/24 09:16 Pantoprazole 40 Mg Tablet PO 40 mg QAM JHOANA Administration Potassium Chloride 20 meq 08/26/24 08:00 08/31/24 09:15 Potassium Chloride 20 Meq Er Tablet PO 20 meq DAILY@0800 JHOANA Administration Rivaroxaban 20 mg 08/26/24 17:00 08/31/24 16:28 Rivaroxaban 20 Mg Tablet PO 20 mg DAILY@1700 JHOANA Administration Tamsulosin HCl 0.4 mg 08/25/24 23:15 08/30/24 21:02 Tamsulosin Hcl 0.4 Mg Capsule PO 0.4 mg QHS JHOANA Administration Valsartan 40 mg 08/26/24 09:00 08/26/24 08:54 Valsartan 40 Mg Tablet PO 40 mg DAILY JHOANA Administration Radiology Results: ITS Impressions Chest X-Ray 08/30/24 14:43 IMPRESSION: 1. Airspace opacities in the perihilar regions and at left lung base with worsening on the left, consistent with mild pulmonary edema and left basilar atelectasis versus pneumonia. Labs Labs: Laboratory Results - last 24 hr 08/30/24 08/31/24 08/31/24 20:21 05:25 07:32 WBC 5.0 RBC 3.05 L Hgb 9.3 L Hct 30.6 L MCV 100.3 H MCH 30.5 MCHC 30.4 L RDW 14.2 Plt Count 258 MPV 10.0 Immature Gran % (Auto) 0.2 Neut % (Auto) 50.3 Lymph % (Auto) 31.1 [place] % (Auto) 9.4 H Eos % (Auto) 8.6 H Baso % (Auto) 0.4 Lymph # (Auto) 1.56 [place] # (Auto) 0.5 Eos # (Auto) 0.4 H Baso # (Auto) 0.0 Abs Immat Gran (auto) 0.01 Absolute Neuts (auto) 2.5 Absolute Nucleated RBC 0.000 Nucleated RBC % 0.0 Sodium 140 Potassium 4.0 Chloride 105 Carbon Dioxide 31 H Anion Gap 4 BUN 9 Creatinine 1.06 Estim Creat Clear Calc 82 Estimated GFR > 60 Glucose 138 H POC Capillary Glucose 103 117 H Calcium 9.9 Magnesium 1.5 L Total Bilirubin 0.5 AST 16 L ALT 15 Alkaline Phosphatase 110 Total Protein 7.0 Albumin 3.1 L 08/31/24 08/31/24 11:28 16:12 WBC RBC Hgb Hct MCV MCH MCHC RDW Plt Count MPV Immature Gran % (Auto) Neut % (Auto) Lymph % (Auto) [place] % (Auto) Eos % (Auto) Baso % (Auto) Lymph # (Auto) [place] # (Auto) Eos # (Auto) Baso # (Auto) Abs Immat Gran (auto) Absolute Neuts (auto) Absolute Nucleated RBC Nucleated RBC % Sodium Potassium Chloride Carbon Dioxide Anion Gap BUN Creatinine Estim Creat Clear Calc Estimated GFR Glucose POC Capillary Glucose 111 H 163 H Calcium Magnesium Total Bilirubin AST ALT Alkaline Phosphatase Total Protein Albumin
[2024-08-31] MEDS: DOXYCYCLINE HYCLATE 100 MG TABLET PO (20:43)
[2024-08-31] MEDS: TAMSULOSIN HCL 0.4 MG CAPSULE PO (20:44)
[2024-08-31] MEDS: MONTELUKAST SODIUM 10 MG TABLET PO (20:44)
[2024-08-31 21:11] LABS: Glucose Point of Care 156 mg/dl (65-105)
[2024-08-31] MEDS: INSULIN GLARGINE (*BKC) 100 UNITS/ML 16 UNITS SUB-Q (22:00)
[2024-08-31] MEDS: BENZONATATE 100 MG CAPSULE PO (22:01)
[2024-09-01] VITALS (7 sets, daily range): BP systolic 127–129; BP diastolic 73–80; PULSE 72–82; RESP 16–20; TEMP 35.8–36.8; O2SAT 92–96
[2024-09-01] MEDS: ALBUTEROL SULFATE (*SP) AEROSOL 1 PUFF INHALATION ×3 (03:15→11:49)
[2024-09-01 07:34] LABS: Glucose Point of Care 108 mg/dl (65-105)
[2024-09-01] MEDS: levETIRAcetam 500 MG TABLET 1000 MG PO (09:25)
[2024-09-01] MEDS: FOLIC ACID 1 MG TABLET PO (09:26)
[2024-09-01] MEDS: DOXYCYCLINE HYCLATE 100 MG TABLET PO (09:26)
[2024-09-01] MEDS: ATORVASTATIN 40 MG TABLET PO (09:26)
[2024-09-01] MEDS: guaiFENesin 12 HR 600 MG TABCR PO (09:26)
[2024-09-01] MEDS: FUROSEMIDE 40 MG TABLET PO (09:26)
[2024-09-01] MEDS: GABAPENTIN 300 MG CAPSULE 600 MG PO ×3 (09:26→17:10)
[2024-09-01] MEDS: AMOXICILLIN/CLAVULANATE K 875-125 MG TAB 1 TABLET PO (09:26)
[2024-09-01] MEDS: LORATADINE 10 MG TABLET PO (09:27)
[2024-09-01] MEDS: POTASSIUM CHLORIDE 20 MEQ ER TABLET PO (09:27)
[2024-09-01] MEDS: PANTOPRAZOLE 40 MG TABLET PO (09:27)
[2024-09-01] MEDS: allopurinoL 100 MG TABLET 200 MG PO (09:27)
[2024-09-01] MEDS: FERROUS SULFATE 325 MG TABLET DR PO (09:27)
--- NOTE | 2024-09-01 09:48 | PCNFU ---
Nutrition Follow-Up Complete: Inadequate energy intake related to NPO status and altered GI function as evidenced by diet orders Diet order - Goal is met PO intake greater than 50% - Progressing. Intakes 50-100% yesterday Goal: Pt current nutrition is Diabetic consistent caarb diet with Glucerna BID (220 kcal, 10 g protein). Nutrition recommendation: No new nutrition recommendations. Continue with nutrition care plan and orders. Agree with orders Last recorded weight is 119 kg. Bowel Motility: +1 BM 08/31/24 Labs Reviewed: No new labs today Meds Noted: Insulin, folic acid Skin: Diabetic ulcer to heel Additional Notes: Diet is advanced, pt is eating better. Getting supplements. Continue with current orders. Agree with orders Monitor for diet orders, intake, tolerance, wt, labs. Follow up in 3 days.
[2024-09-01 11:23] LABS: Glucose Point of Care 164 mg/dl (65-105)
--- NOTE | 2024-09-01 15:08 | PM.DS ---
DS: Admitting Diagnosis Discharge Date 09/01/24 Admitting Diagnosis Hypotension and weakness. DS: Discharge Diagnosis Discharge Diagnosis (1) Anemia: Qualifiers: Anemia type: unspecified type Qualified Code(s): D64.9 - Anemia, unspecified Code(s): D64.9 - Anemia, unspecified Status: Acute (2) Pneumonia: Qualifiers: Laterality: left Lung location: lower lobe of lung Pneumonia type: due to unspecified organism Qualified Code(s): J18.9 - Pneumonia, unspecified organism Code(s): J18.9 - Pneumonia, unspecified organism Status: Acute (3) Acute kidney injury: Code(s): N17.9 - Acute kidney failure, unspecified Status: Acute (4) CHF (congestive heart failure): Qualifiers: Heart failure chronicity: acute Heart failure type: unspecified Qualified Code(s): I50.9 - Heart failure, unspecified Code(s): I50.9 - Heart failure, unspecified Status: Chronic (5) Type 2 diabetes mellitus: Code(s): E11.9 - Type 2 diabetes mellitus without complications Status: Chronic (6) Hypertension: Qualifiers: Hypertension type: primary hypertension Qualified Code(s): I10 - Essential (primary) hypertension Code(s): I10 - Essential (primary) hypertension Status: Chronic DS: Summary Hospital Course Reason for hospitalization: 64yo male with CHF, DM and HTN here for hypotension and weakness. Please see H&P for details. Hospital Course: Patient presents with weakness and found to have anemia. [place] to be acute blood loss with chronic iron deficiency anemia. He was on Xarelto on admission. Hgb 10.8 in May and 6.4 on admission. Hemoccult positive. B12 normal. Iron deficiency noted. He was transfused 1U pRBC on 08/25. GI consulted. EGD 08/26 with mild localized acute erosive gastritis in the antrum and moderate erosive duodenitis in the duodenal bulb. Colonoscopy showing diverticulosis and 2 transverse colon polyps that were removed; pathology showing tubulovillous adenomas. He was started on PPI. Iron added. He was able to resume his Xarelto. He possibly had a LLL PNA per CXR. Started on Rocephin and Azithromycin but then switched to Augmentin. MRSA nasal swab positive. Doxycycline added. He was also COVID Positive on 08/26. Hypoxic on 2L. No treatment initiated with plan for supportive care. No Remdesivir due to renal function and no steroids due to GI issues. Treated with Mucinex and albuterol inhaler. Also with NANY with Cr 1.9 on admission. [place] related to anemia, medications and infection. Cr better at 1. Creatinine back to baseline. Hx of CVA in May 2024. PT/OT ordered. Chronic systolic CHF. EF 40-45% 04/2024. Was on Lasix which was placed on hold but now resumed. He has DM with A1c 8.4% on 04/2024 but recheck A1c now 5.7% (related to anemia?). Glucose remained reasonable. He has Parkinson Disease with dysphagia. ST consulted due to PNA. ST felt patient did well with bedside swallow evaluation and did not recommend further evaluation. He has chronic AFib that was rate controlled. Xarelto resumed. EKG showing paced rhythm. Patient overall did well and was able to be discharged on 09/01/2024. Status at Discharge Cognitive/behavioral status at discharge: Stable Time Spent with Patient Time attestation: Total time spent providing and/or coordinating discharge services: 35 minutes Time spent: Greater than 30 minutes Exam Narrative: AF 996.5 127/73 79 20 96% 2L Gen - NARD Chest - clear anteriorly and in flanks CV - RRR S1/S2 Abd - Soft, NT/ND, Positive BS Ext - No left pedal edema. Right BKA. Neuro -mild left-sided weakness Psych - Nml mood and affect Skin - Warm and dry DS: Data Data Completed and Pending Completed studies during hospitalization: Pending at discharge 08/29/24 13:19 Surgical [PTH] Routine Labs on day of discharge: Labs from last 24 hours 09/01/24 09/01/24 08/31/24 11:17 07:31 19:52 POC Capillary Glucose 164 H 108 H 156 H 08/31/24 16:12 POC Capillary Glucose 163 H Discharge Plan Discharge Attending physician on discharge: Noe Rubio Discharging Clinician: Noe Rubio Anticipated Discharge Date/Time: 09/01/24 15:17 Patient Disposition: SNF Activity: as tolerated Diet: diabetic Discharge Instructions: 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 Their address is [address], [place] [address]. 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 Continue oxygen at 2L/min. Wean off to keep SpO2 >92%. Please check glucose before meals and before bed. Record for the doctor's review. Check blood pressure 1 to 2 times a day. Record for the doctor's review. Take precautions to avoid falls Rise slowly from a lying or sitting position. Pause before standing or walking. Check daily morning weights after voiding. Call the doctor if the patient gains more than 3 lb in 2 days or 5 lb in 1 week. Contact the doctor if the patient has increasing oxygen requirement, lightheadedness with standing or other worrisome symptoms. Avoid NSAIDs (ibuprofen, naproxen, Aleve). Tylenol is safe to take. Follow-up with the provider at the facility. Follow-up with Dr Trimble in 3 months. Please call for an appointment. Thank you for using [facility] for your health care needs. Patient Language: [place] Stand Alone Forms: General Discharge Information Follow-up/Referrals: Phong Hinkle MD [Primary Care Provider] - Other Ankit Trimble MD [Physician] - Call for Appointment Discharge Medications: New pantoprazole 40 mg Tablet,Delayed Release (Dr/Ec) 40 mg PO QAM Qty: 30 2RF doxycycline hyclate 100 mg Tablet 100 mg PO Q12HR Qty: 12 0RF ferrous sulfate 325 mg (65 mg iron) Tablet,Delayed Release (Dr/Ec) 325 mg PO DAILY Qty: 30 2RF Continued levetiracetam [Keppra] 1,000 mg tablet 1,000 mg PO BID Qty: 60 0RF gabapentin 600 mg tablet 600 mg PO TID cetirizine 10 mg tablet 10 mg PO DAILY Qty: 90 3RF potassium chloride 20 mEq tablet,ER particles/crystals 20 meq PO DAILY Qty: 90 3RF tamsulosin 0.4 mg capsule 0.4 mg PO QHS Qty: 90 3RF allopurinol 100 mg tablet 200 mg PO DAILY Qty: 180 1RF folic acid 1 mg tablet 1 mg PO DAILY Qty: 90 3RF Xarelto 20 mg tablet 20 mg PO DAILY Qty: 30 5RF Rx Instructions: must administer with evening meal atorvastatin [Lipitor] 40 mg tablet 40 mg PO DAILY Qty: 90 3RF albuterol sulfate 90 mcg/actuation HFA aerosol inhaler 1 puff inhalation Q4H PRN (Reason: shortness of breath or wheezing) Qty: 25.5 3RF furosemide 40 mg tablet 40 mg PO DAILY Qty: 30 11RF montelukast 10 mg tablet 10 mg PO HS Qty: 30 11RF Changed insulin glargine [Lantus U-100 Insulin] 100 unit/mL solution 16 unit subcut HS Qty: 1 0RF Held valsartan [Diovan] 40 mg tablet 40 mg PO DAILY Qty: 30 2RF Hold Instructions: HOLD -resume when okay with the provider Discontinued aspirin 325 mg tablet 325 mg PO DAILY@0800 Qty: 30 0RF Other Ambulatory Orders: Basic Metabolic Panel (Routine) Timeframe: [id number] Location: Determined by Patient Ordered By: Noe Rubio Date of admission: 08/26/24 09:52 Primary Care Provider: Phong Hinkle Admitting Provider: Anali Lino Attending physician on admission: Anali Lino Condition: Stable Hospitalist MIPS Heart Failure (Exclusion) Patient has history of Heart Transplant or Left Ventricular Assistive Device?: No IF YES, STOP HERE Heart Failure (Qualifier) Patient has current or prior documentation of LVEF less than or equal to 40%, or mod/servere depressed LVSF?: No IF NO, STOP HERE
[2024-09-01 16:30] LABS: Glucose Point of Care 153 mg/dl (65-105)
[2024-09-01] MEDS: RIVAROXABAN 20 MG TABLET PO (17:12)
== END 2024-09-01 19:30 | DRG 811 ==
LOC: ANHED 17:04 → ANH3MEDSUR 18:08
PROVIDERS: Internal Medicine; Internal Medicine Gastroenterology; Student in an Organized Health Care Education/Training Program; Admitting Provider Internal Medicine; Emergency Provider Emergency Medicine; PCP Family Medicine; Visit Provider Internal Medicine
PROC: 0DJ08ZZ Inspection of Upper Intestinal Tract, Via Natural or Artificial Opening Endoscopic (ICD-10-PCS; CPT 45378; principal; 2024-08-26 13:30)
PROC: 0DJD8ZZ Inspection of Lower Intestinal Tract, Via Natural or Artificial Opening Endoscopic (ICD-10-PCS; CPT 45378; principal; 2024-08-29 13:30)
DX: D50.9 Iron deficiency anemia, unspecified (principal); J15.212 Pneumonia due to Methicillin resistant Staphylococcus aureus; U07.1 COVID-19; K29.71 Gastritis, unspecified, with bleeding; K29.81 Duodenitis with bleeding; N17.9 Acute kidney failure, unspecified; I48.20 Chronic atrial fibrillation, unspecified; L97.429 Non-pressure chronic ulcer of left heel and midfoot with unspecified severity; I50.32 Chronic diastolic (congestive) heart failure; D62 Acute posthemorrhagic anemia; E11.621 Type 2 diabetes mellitus with foot ulcer; E11.42 Type 2 diabetes mellitus with diabetic polyneuropathy; E78.5 Hyperlipidemia, unspecified; G20.A1 Parkinson's disease without dyskinesia, without mention of fluctuations; I11.0 Hypertensive heart disease with heart failure; I25.10 Atherosclerotic heart disease of native coronary artery without angina pectoris; J44.9 Chronic obstructive pulmonary disease, unspecified; N40.0 Benign prostatic hyperplasia without lower urinary tract symptoms; R13.10 Dysphagia, unspecified; Z89.511 Acquired absence of right leg below knee; Z95.0 Presence of cardiac pacemaker; Z99.81 Dependence on supplemental oxygen; Z66 Do not resuscitate; Z95.5 Presence of coronary angioplasty implant and graft; Z79.01 Long term (current) use of anticoagulants; Z79.4 Long term (current) use of insulin; Z86.73 Personal history of transient ischemic attack (TIA), and cerebral infarction without residual deficits; Z87.891 Personal history of nicotine dependence
CPT/HCPCS: 36415; 36430; 71045; 80053; 82607; 82728; 82746; 82948; 83036; 83540; 83550; 83605; 83735; 84132; 84443; 85014; 85018; 85025; 85610; 85730; 86140; 86850; 86900; 86901; 86923; 87040; 87070; 87205; 87637; 87641; 88305; 92610; 93005; 94640; 96361; 96365; 96367; 97110; 97161; 97166; 97530; 99285; A9270; G0378; J0456; J0696; J1815; J2003; J2470; J2704; J7030; J7050; J7120; P9016

== ENCOUNTER 2025-01-20 16:42 | Emergency (ER) | payer MEDICARE, MEDICAID, SELFPAY ==
--- OUTSIDE RECORDS SUMMARY | 2025-01-20 16:44 | XMS_ITS | Patient Health Record ---
Author Organization [facility] Address [address] [place] [address] Care Team Providers Care Boner Meat Name Role Phone Yane Chaudhari Primary Care Provider Reason For Referral No Information Medications Medication SIG (Take, Route, Frequency, Duration) Notes Start Date End Date Status Magnesium Oxide 400 MG 1 tablet as neede d Orally twice a day Active Vivitrol 380 MG 4 ml Intramuscular e very 28 days; Duration: 28 days 10/01/2018 Active Atorvastatin Calcium 20 MG 1 tablet Orally Once a day; Duration: 30 day(s) Active dilTIAZem HCl 60 MG [...] 10 MG 1 tablet Orally Once a day; Duration: 30 day(s) Active Folic Acid 1 MG 1 tablet Orally Once a day Active Cetirizine HCl 10 MG 1 tablet Orally Onc e a day; Duration: 30 day(s) Active B-100 B-Complex - Orally [...] phone, visiting friends or family, going to congregational or club meetings) 1 or 2 times a week How stressed are you? Stress is when someone feels tense, nervous, anxious, or can\t sleep at night because their mind is troubled Quite a bit In the past year have you sp ent more than 2 nights in a row in a shelter, long-term, care home center, or juvenile correctional facility? No Are [...] Problem Status W/U Status Risk Notes Problem Tobacco dependence (27796764) Tobacco dependence (F17.200) Active confirmed Problem Alcohol abuse (01853852) Alcohol abuse (F10.10) Active confirmed Problem Type II diabetes mellitus without complication (576603661) Diabetes (E11.9) Active confirmed Problem Bradycardia (30230100) Bradycardia (R00.1) Active confirmed Problem Alcohol use disorder (3310119122) Alcohol use disorder (F10.99) Active confirmed Problem Obese class I (finding) (780012568509400 ) Obesity (BMI 30.0-34.9) (E66.9) Active confirmed Problem High cholesterol (74649842) High cholesterol (E78.00) Active confirmed Plan Of Treatment Future Test Test Name Order Date Hepatic Function Panel (7)* 03/17/2019 Insurance Providers Payer Name Payer Address Payer Phone Subscriber Number Group Number Insured Name Patient Relationship to Insured Coverage Start Date Coverage End Date [facility] Attn Claims Department [address] [place] [address] [id number] Joselito Lamar Self - patient is the insured 9 Medications Administered Medication Instructions Date of Administration Dosage Notes Vivitrol 10/01/2018 380 mg Patient tolera mel well. sample given Vivitrol 10/28/2018 380 mg Apiarist: [employer] Patient tolerated well. Vivitrol 11/25/2018 380 mg Apiarist: alkermes Pt tolerated well. He denies any questions or concerns. Vivitrol 12/23/2018 380 mg Patient tolera mel well. Vivitrol 01/20/2019 380 mg Exp Jan 2021 M anufact by [employer] pt heraclio well. Vivitrol 02/17/2019 380 mg Exp Nov 2020 m anufact by [employer] pt heraclio well. Vivitrol 03/18/2019 380 mg Apiarist A lkermes. Pt tolerated well. Voiced no questions or concerns at present time. Vivitrol 04/15/2019 380 mg Apiarist-[employer] Pt tolerated injection well. No questions or conerns verbalized. Vivitrol 05/13/2019 380 mg Apiarist A lkermes. Pt tolerated well. Voiced no questions or concerns at present time. Medical (General) History Medical History History ICD Code Bradycardia High cholesterol Alcohol abuse Diabetes mellitus Surgical History Surgery Date(Month/Year) sun spots removed (removal of basal cell carcinoma) 02/2019
--- OUTSIDE RECORDS SUMMARY | 2025-01-20 16:44 | XMS_ITS | Clinical Summary ---
Author Organization Unknown Care Team Providers Care Parts Clerk Name Role Phone RUMA NETWORKING ADMINISTRATOR, GURMEET Unavailable Unavailable ANITHA PT, BROCK Unavailable Unavailable CHRISTINE FIGURINE MAKER, JAZMINE Unavailable Unavailable AMRIVEL OT, MANDY Unavailable Unavailable ALBANIA RN, MEGAN Unavailable Unavailable Payers Payer Name Policy Type Policy Number Effective Date Expira tion Date MEDICARE.[facility]O.[facility] [id number] Problems Condition Name Condition Details Condition Category Status Onset Date Resolution Date Last Treatment Date Treating Clinician Comments HEMIPLGA FOLLOWING CEREBRAL INFRC AFFECTING LEFT NONDOM SIDE Active 12-11 00:00: 00 UNSPECIFIED SUPERFICIAL INJURY OF RIGHT HAND, SUBS ENCNTR Active 12-11 00:00: 00 TYPE 2 DIABETES MELLITUS WITH DIABETIC NEUROPATHY, UNSP Active 12-11 00:00: 00 TYPE 2 DIABETES W DIABETIC PERIPHERAL ANGIOPATH W/O GANGRENE Active 12-11 00:00: 00 HYP HRT AND CHR KDNY DIS W HRT FAIL AND STG 1-4/UNSP CHR KDNY Active 12-11 00:00: 00 CHRONIC SYSTOLIC (CONGESTIVE) HEART FAILURE Active 12-11 00:00: 00 TYPE 2 DIABETES MELLITUS W DIABETIC CHRONIC KIDNEY DISEASE Active 12-11 00:00: 00 CHRONIC KIDNEY DISEASE, STAGE 3A Active 12-11 00:00: 00 ANEMIA IN CHRONIC KIDNEY DISEASE Active 12-11 00:00: 00 ATHSCL HEART DISEASE OF [place] CORONARY ARTERY W/O ANG PCTRS Active 12-11 00:00: 00 CHRONIC ATRIAL FIBRILLATION , UNSPECIFIED Active 12-11 00:00: 00 IRON DEFICIENCY ANEMIA, UNSPECIFIED Active 12-11 00:00: 00 FOLATE DEFICIENCY ANEMIA, UNSPECIFIED Active 12-11 00:00: 00 PARKINSON'S DIS W/O DYSKINESIA, W/O MENTION OF FLUCTUATIONS Active 12-11 00:00: 00 VENOUS INSUFFICIENC Y (CHRONIC) (PERIPHERAL) Active 12-11 00:00: 00 UNSPECIFIED ASTHMA, UNCOMPLICATE D Active 12-11 00:00: 00 ANXIETY DISORDER, UNSPECIFIED Active 12-11 00:00: 00 DEPRESSION, UNSPECIFIED Active 12-11 00:00: 00 NONINFECTIVE GASTROENTERI TIS AND COLITIS, UNSPECIFIED Active 12-11 00:00: 00 OTHER SECONDARY CHRONIC GOUT, MULTIPLE SITES, WITHOUT TOPHUS Active 12-11 00:00: 00 CERVICAL DISC DISORDER AT C5-C6 LEVEL WITH RADICULOPATH Y Active 12-11 00:00: 00 BENIGN PROSTATIC HYPERPLASIA WITH LOWER URINARY TRACT SYMP Active 12-11 00:00: 00 UNSPECIFIED CONVULSIONS Active 12-11 00:00: 00 HYPERLIPIDEM IA, UNSPECIFIED Active 12-11 00:00: 00 DYSPHAGIA, OROPHARYNGEA L PHASE Active 12-11 00:00: 00 NICOTINE DEPENDENCE, CIGARETTES, UNCOMPLICATE D Active 12-11 00:00: 00 UNSPECIFIED CATARACT Active 12-11 00:00: 00 HISTORY OF FALLING Active 12-09 00:00: 00 PERSONAL HISTORY OF PNEUMONIA (RECURRENT) Active 12-11 00:00: 00 ACQUIRED ABSENCE OF RIGHT LEG BELOW KNEE Active 12-11 00:00: 00 PRESENCE OF CARDIAC PACEMAKER Active 12-11 00:00: 00 PERSONAL HISTORY OF COVID-19 Active 12-05 00:00: 00 MCFP (CURRENT) USE OF INSULIN Active 06-08 00:00: 00 [facility]FP (CURRENT) USE OF ASPIRIN Active 06-08 00:00: 00 Allergies, Adverse Reactions, Alerts Allergy Name Allergy Type Status Severity Reaction(s) Onset Date Inactive Date Treating Clinician Comments NO KNOWN ALLERGIES Propensity to adverse reactions Active 12-11 15:19: 51 Medications Ordered Medication Name Filled Medication Name Start Date Stop Date Current Medication? Ordering Clinician Indication Dosage Frequency Signature (SIG) Comments Components albuterol sulfate HFA 90 mcg/actuati on aerosol inhaler 11-24 00:00: 00 Yes [id number] WHEEZING 1 puff EVERY 4 HOURS NEEDED 1 puff EVERY 4 HOURS NEEDED (route: inhalation ) Med Classific ation: Respirato ry Therapy Agents cetirizine 10 mg tablet 11-23 00:00: 00 Yes [id number] ALLERGIES 1 tablet ONCE DAILY 1 tablet ONCE DAILY (route: oral) Med Classific ation: Respirato ry Therapy Agents ferrous sulfate 325 mg (65 mg iron) tablet,[facility] release 11-23 00:00: 00 Yes [id number] SUPPLEMENTE D 1 tablet DAILY 1 tablet DAILY (route: oral) Med Classific ation: Electroly te Balance-N utritiona l Products folic acid 1 mg tablet 11-23 00:00: 00 Yes [id number] SUPPLEMENT 1 tablet DAILY 1 tablet DAILY (route: oral) Med Classific ation: Electroly te Balance-N utritiona l Products magnesium oxide 400 mg (241.3 mg magnesium) tablet 11-23 00:00: 00 12-11 00:00 :00 No [id number] Per instruc tions TWICE DAILY Per instructio ns TWICE DAILY (route: oral) Med Classific ation: Electroly te Balance-N utritiona l Products allopurinol 100 mg tablet 11-18 00:00: 00 Yes [id number] GOUT 1 tablet DAILY 1 tablet DAILY (route: oral) Med Classific ation: Gout and Hyperuric emia Therapy atorvastati n 40 mg tablet 11-18 00:00: 00 Yes [id number] HIGH CHOLESTEROL 1 tablet DAILY 1 tablet DAILY (route: oral) Med Classific ation: Cardiovas cular Therapy Agents diltiazem 90 mg tablet 11-18 00:00: 00 12-11 00:00 :00 No [id number] Per instruc tions TWICE DAILY Per instructio ns TWICE DAILY (route: oral) Med Classific ation: Cardiovas cular Therapy Agents furosemide 40 mg tablet 11-18 00:00: 00 Yes [id number] EDEMA 1 tablet DAILY 1 tablet DAILY (route: oral) Med Classific ation: Cardiovas cular Therapy Agents metformin 1,000 mg tablet 11-18 00:00: 00 12-11 00:00 :00 No [id number] Unavailable Per instruc tions (1000MG) TWICE DAILY Per instructio ns (1000MG) TWICE DAILY (route: oral) Med Classific ation: Endocrine montelukast 10 mg tablet 11-18 00:00: 00 Yes [id number] ASTHMA 1 tablet AT BEDTIME 1 tablet AT BEDTIME (route: oral) Med Classific ation: Respirato ry Therapy Agents pantoprazol e 40 mg tablet,[facility] release 11-18 00:00: 00 Yes [id number] GERD 1 tablet DAILY 1 tablet DAILY (route: oral) Med Classific ation: Gastroint estinal Therapy Agents potassium chloride ER 20 mEq tablet,exte nded release(par t/cryst) 11-18 00:00: 00 12-11 00:00 :00 No [id number] Per instruc tions DAILY Per instructio ns DAILY (route: oral) Med Classific ation: Electroly te Balance-N utritiona l Products tamsulosin 0.4 mg capsule 11-18 00:00: 00 Yes [id number] BPH 1 capsule DAILY AT BEDTIME 1 capsule DAILY AT BEDTIME (route: oral) Med Classific ation: Genitouri nary Therapy triamcinolo ne acetonide 0.1 % topical cream 11-18 00:00: 00 12-11 00:00 :00 No [id number] Per instruc tions TWICE DAILY FOR 5 OUT OF 7 DAYS EUCERIN TWICE DAILY FOR OTHER TWO DAYS OF THE WEEK Per instructio ns TWICE DAILY FOR 5 OUT OF 7 DAYS EUCERIN TWICE DAILY FOR OTHER TWO DAYS OF THE WEEK (route: topical) Med Classific ation: Dermatolo gical valsartan 40 mg tablet 11-18 00:00: 00 12-11 00:00 :00 No [id number] Per instruc tions DAILY Per instructio ns DAILY (route: oral) Med Classific ation: Cardiovas cular Therapy Agents Xarelto 20 mg tablet 6-13 00:00: 00 Yes [id number] BLOOD THINNER 1 tablet DAILY 1 tablet DAILY (route: oral) Med Classific ation: Hematolog ical Agents Lantus U-100 Insulin 100 unit/mL subcutaneou s solution -10 00:00: 00 Yes [id number] DIABETIS 16 unit SUBCUTANEO USLY DAILY AT BEDTIME 16 unit SUBCUTANEO USLY DAILY AT BEDTIME (route: subcutaneo us) Med Classific ation: Endocrine acetaminoph en 500 mg tablet 12-11 00:00: 00 Yes [id number] PAIN 2 tablet EVERY 6 HOURS 2 tablet EVERY 6 HOURS (route: oral) Med Classific ation: Analgesic , Anti-infl ammatory or Antipyret ic aspirin 325 mg tablet 12-11 00:00: 00 Yes [id number] BLOOD THINNER 1 tablet DAILY 1 tablet DAILY (route: oral) Med Classific ation: Analgesic , Anti-infl ammatory or Antipyret ic gabapentin 600 mg tablet 12-11 00:00: 00 Yes [id number] PAIN 1 tablet DAILY 1 tablet DAILY (route: oral) Med Classific ation: Central Nervous System Agents Keppra 500 mg tablet 12-11 00:00: 00 Yes [id number] SEIZURES 2 tablet 2 TIMES DAILY 2 tablet 2 TIMES DAILY (route: oral) Med Classific ation: Central Nervous System Agents Multivitami n 50 Plus tablet 12-11 00:00: 00 Yes [id number] SUPPLEMENT 1 tablet DAILY 1 tablet DAILY (route: oral) Med Classific ation: Electroly te Balance-N utritiona l Products potassium chloride ER 20 mEq tablet,exte nded release 12-11 00:00: 00 Yes [id number] SUPPLEMENT 1 tablet DAILY 1 tablet DAILY (route: oral) Med Classific ation: Electroly te Balance-N utritiona l Products famotidine 20 mg tablet 01-02 00:00: 00 Yes [id number] GERD 1 tablet DAILY 1 tablet DAILY (route: oral) Med Classific ation: Gastroint estinal Therapy Agents pramipexole ER 0.375 mg tablet,exte nded release 24 hr 01-02 00:00: 00 Yes [id number] PARKINSON'S ... 1 tablet DAILY 1 tablet DAILY (route: oral) Med Classific ation: Central Nervous System Agents Vital Signs Vital Name Observation Time Observation Value Commen ts Temperature 2025-01-19 11:11:00.000 97.5 [degF] Temperature 2025-01-19 11:11:00.000 97.5 [degF] Temperature 2025-01-11 14:28:00.000 98.2 [degF] Temperature 2025-01-11 13:35:00.000 98.4 [degF] Temperature 2025-01-09 11:27:00.000 99.1 [degF] Temperature 2025-01-06 13:23:00.000 99 [degF] Temperature 2025-01-04 13:31:00.000 97.1 [degF] Temperature 2025-01-02 13:07:00.000 97.3 [degF] Temperature 2024-12-28 21:21:00.000 97 [degF] Temperature 2024-12-28 12:05:00.000 97.1 [degF] Temperature 2024-12-27 12:09:00.000 97.2 [degF] Temperature 2024-12-26 14:50:00.000 96.7 [degF] Temperature 2024-12-23 15:36:00.000 97.8 [degF] Temperature 2024-12-23 10:21:00.000 97.6 [degF] Temperature 2024-12-23 08:42:00.000 97.6 [degF] Temperature 2024-12-21 13:47:00.000 98.5 [degF] Temperature 2024-12-19 08:46:00.000 97.8 [degF] Temperature 2024-12-16 09:28:00.000 97.4 [degF] Temperature 2024-12-13 17:32:00.000 97.4 [degF] Temperature 2024-12-13 10:25:00.000 97.4 [degF] Temperature 2024-12-12 10:54:00.000 98 [degF] Temperature 2024-12-11 11:21:00.000 96 [degF] BMI (%) 2024-12-11 11:01:16.000 34 kg/m2 Height 2024-12-11 11:01:01.000 73 [in_us] Pulse 2025-01-19 11:11:00.000 80 /min Pulse 2025-01-19 11:11:00.000 80 /min Pulse 2025-01-11 14:28:00.000 80 /min Pulse 2025-01-11 13:35:00.000 80 /min Pulse 2025-01-06 13:23:00.000 78 /min Pulse 2025-01-04 13:31:00.000 80 /min Pulse 2025-01-02 13:07:00.000 80 /min Pulse 2024-12-28 21:21:00.000 72 /min Pulse 2024-12-28 12:05:00.000 78 /min Pulse 2024-12-27 12:09:00.000 88 /min Pulse 2024-12-26 14:50:00.000 78 /min Pulse 2024-12-23 15:36:00.000 78 /min Pulse 2024-12-23 10:21:00.000 80 /min Pulse 2024-12-23 08:42:00.000 80 /min Pulse 2024-12-21 13:47:00.000 87 /min Pulse 2024-12-19 08:46:00.000 80 /min Pulse 2024-12-16 09:28:00.000 78 /min Pulse 2024-12-13 17:32:00.000 78 /min Pulse 2024-12-13 10:25:00.000 78 /min Pulse 2024-12-12 10:54:00.000 78 /min Pulse 2024-12-11 11:21:00.000 84 /min O2 Saturation (%) 2025-01-19 11:11:00.000 96 % O2 Saturation (%) 2025-01-19 11:11:00.000 96 % O2 Saturation (%) 2025-01-11 14:28:00.000 96 % O2 Saturation (%) 2025-01-11 13:35:00.000 93 % O2 Saturation (%) 2025-01-06 13:23:00.000 98 % O2 Saturation (%) 2025-01-04 13:31:00.000 98 % O2 Saturation (%) 2025-01-02 13:07:00.000 95 % O2 Saturation (%) 2024-12-28 21:21:00.000 96 % O2 Saturation (%) 2024-12-28 12:05:00.000 96 % O2 Saturation (%) 2024-12-27 12:09:00.000 92 % O2 Saturation (%) 2024-12-26 14:50:00.000 96 % O2 Saturation (%) 2024-12-23 15:36:00.000 95 % O2 Saturation (%) 2024-12-23 10:21:00.000 95 % O2 Saturation (%) 2024-12-23 08:42:00.000 95 % O2 Saturation (%) 2024-12-21 13:47:00.000 93 % O2 Saturation (%) 2024-12-19 08:46:00.000 97 % O2 Saturation (%) 2024-12-16 09:28:00.000 96 % O2 Saturation (%) 2024-12-13 17:32:00.000 90 % O2 Saturation (%) 2024-12-13 10:25:00.000 90 % O2 Saturation (%) 2024-12-12 10:54:00.000 94 % O2 Saturation (%) 2024-12-11 11:21:00.000 94 % Respirations 2025-01-19 11:11:00.000 16 /min Respirations 2025-01-19 11:11:00.000 16 /min Respirations 2025-01-11 14:28:00.000 18 /min Respirations 2025-01-11 13:35:00.000 18 /min Respirations 2025-01-09 11:27:00.000 18 /min Respirations 2025-01-06 13:23:00.000 18 /min Respirations 2025-01-04 13:31:00.000 18 /min Respirations 2025-01-02 13:07:00.000 18 /min Respirations 2024-12-28 21:21:00.000 16 /min Respirations 2024-12-28 12:05:00.000 18 /min Respirations 2024-12-27 12:09:00.000 18 /min Respirations 2024-12-26 14:50:00.000 18 /min Respirations 2024-12-23 15:36:00.000 16 /min Respirations 2024-12-23 10:21:00.000 18 /min Respirations 2024-12-23 08:42:00.000 18 /min Respirations 2024-12-21 13:47:00.000 18 /min Respirations 2024-12-19 08:46:00.000 18 /min Respirations 2024-12-16 09:28:00.000 18 /min Respirations 2024-12-13 17:32:00.000 18 /min Respirations 2024-12-13 10:25:00.000 18 /min Respirations 2024-12-12 10:54:00.000 18 /min Respirations 2024-12-11 11:21:00.000 18 /min Weight (lbs) 2024-12-11 11:01:16.000 258 [lb_av] Systolic Blood Pressure 2025-01-19 11:11:00.000 126 mm [Hg] Systolic Blood Pressure 2025-01-19 11:11:00.000 126 mm [Hg] Systolic Blood Pressure 2025-01-11 14:28:00.000 108 mm [Hg] Systolic Blood Pressure 2025-01-11 13:35:00.000 118 mm [Hg] Systolic Blood Pressure 2025-01-09 11:27:00.000 102 mm [Hg] Systolic Blood Pressure 2025-01-06 13:23:00.000 118 mm [Hg] Systolic Blood Pressure 2025-01-04 13:31:00.000 138 mm [Hg] Systolic Blood Pressure 2025-01-02 13:07:00.000 94 mm[ Hg] Systolic Blood Pressure 2024-12-28 21:21:00.000 122 mm [Hg] Systolic Blood Pressure 2024-12-28 12:05:00.000 138 mm [Hg] Systolic Blood Pressure 2024-12-27 12:09:00.000 122 mm [Hg] Systolic Blood Pressure 2024-12-26 14:50:00.000 102 mm [Hg] Systolic Blood Pressure 2024-12-23 15:36:00.000 108 mm [Hg] Systolic Blood Pressure 2024-12-23 10:21:00.000 118 mm [Hg] Systolic Blood Pressure 2024-12-23 08:42:00.000 118 mm [Hg] Systolic Blood Pressure 2024-12-21 13:47:00.000 100 mm [Hg] Systolic Blood Pressure 2024-12-19 08:46:00.000 108 mm [Hg] Systolic Blood Pressure 2024-12-16 09:28:00.000 122 mm [Hg] Systolic Blood Pressure 2024-12-13 17:32:00.000 108 mm [Hg] Systolic Blood Pressure 2024-12-13 10:25:00.000 108 mm [Hg] Systolic Blood Pressure 2024-12-12 10:54:00.000 110 mm [Hg] Systolic Blood Pressure 2024-12-11 11:21:00.000 140 mm [Hg] Diastolic Blood Pressure 2025-01-19 11:11:00.000 76 mm [Hg] Diastolic Blood Pressure 2025-01-19 11:11:00.000 76 mm [Hg] Diastolic Blood Pressure 2025-01-11 14:28:00.000 78 mm [Hg] Diastolic Blood Pressure 2025-01-11 13:35:00.000 74 mm [Hg] Diastolic Blood Pressure 2025-01-09 11:27:00.000 68 mm [Hg] Diastolic Blood Pressure 2025-01-06 13:23:00.000 68 mm [Hg] Diastolic Blood Pressure 2025-01-04 13:31:00.000 80 mm [Hg] Diastolic Blood Pressure 2025-01-02 13:07:00.000 60 mm [Hg] Diastolic Blood Pressure 2024-12-28 21:21:00.000 76 mm [Hg] Diastolic Blood Pressure 2024-12-28 12:05:00.000 78 mm [Hg] Diastolic Blood Pressure 2024-12-27 12:09:00.000 70 mm [Hg] Diastolic Blood Pressure 2024-12-26 14:50:00.000 70 mm [Hg] Diastolic Blood Pressure 2024-12-23 15:36:00.000 68 mm [Hg] Diastolic Blood Pressure 2024-12-23 10:21:00.000 80 mm [Hg] Diastolic Blood Pressure 2024-12-23 08:42:00.000 80 mm [Hg] Diastolic Blood Pressure 2024-12-21 13:47:00.000 70 mm [Hg] Diastolic Blood Pressure 2024-12-19 08:46:00.000 68 mm [Hg] Diastolic Blood Pressure 2024-12-16 09:28:00.000 66 mm [Hg] Diastolic Blood Pressure 2024-12-13 17:32:00.000 70 mm [Hg] Diastolic Blood Pressure 2024-12-13 10:25:00.000 70 mm [Hg] Diastolic Blood Pressure 2024-12-12 10:54:00.000 62 mm [Hg] Diastolic Blood Pressure 2024-12-11 11:21:00.000 80 mm [Hg] Plan of Treatment Planned Activity Planned Date Details Comments Future Scheduled Test AGENCY MAY PERFORM A RESUMPTION OF CARE VISIT FOLLOWING ANY HOSPITAL ADMISSION. PT TO EVALUATE, OBSERVE / ASSESS, AND MONITOR, FIGURINE MAKER TO OBSERVE AND MONITOR, PROVIDE SKILLED THERAPEUTIC INTERVENTION, ACTIVITY, EDUCATION, AND TRAINING TO ADDRESS; [code = AGENCY MAY PERFORM A RESUMPTION OF CARE VISIT FOLLOWING ANY HOSPITAL ADMISSION. PT TO EVALUATE, OBSERVE / ASSESS, AND MONITOR, FIGURINE MAKER TO OBSERVE AND MONITOR, PROVIDE SKILLED THERAPEUTIC INTERVENTION, ACTIVITY, EDUCATION, AND TRAINING TO ADDRESS;] Future Scheduled Test SIT TO/FRO M STAND TRANSFERS (PT/FIGURINE MAKER) [code = SIT TO/FROM STAND TRANSFERS (PT/FIGURINE MAKER)] Future Scheduled Test CHAIR ORELLANA SFERS (PT/FIGURINE MAKER) [code = CHAIR TRANSFERS (PT/FIGURINE MAKER)] Future Scheduled Test PT/FIGURINE MAKER TO PROVIDE GAIT TRAINING FOR IMPROVED MOBILITY AND /OR TO NORMALIZE GAIT PATTERN [code = PT/FIGURINE MAKER TO PROVIDE GAIT TRAINING FOR IMPROVED MOBILITY AND /OR TO NORMALIZE GAIT PATTERN] Future Scheduled Test NEUROMUSCU LAR RE-EDUCATION / BALANCE / POSTURAL CONTROL (PT) [code = NEUROMUSCULAR RE-EDUCATION / BALANCE / POSTURAL CONTROL (PT)] Future Scheduled Test THERAPEUTI C EXERCISES AND ESTABLISHING A HOME EXERCISE PROGRAM (PT/FIGURINE MAKER) [code = THERAPEUTIC EXERCISES AND ESTABLISHING A HOME EXERCISE PROGRAM (PT/FIGURINE MAKER)] Future Scheduled Test PT/FIGURINE MAKER TO IDENTIFY FALL RISK FACTORS; EDUCATE THE PATIENT/CAREGIVER ON WAYS TO REDUCE FALL RISK FACTORS AND ESTABLISH HOME EXERCISE PROGRAM TO MINIMIZE FALL RISK. MAY TEACH THE PATIENT FLOOR RECOVERY WHEN CLINICALLY APPROPRIATE [code = PT/FIGURINE MAKER TO IDENTIFY FALL RISK FACTORS; EDUCATE THE PATIENT/CAREGIVER ON WAYS TO REDUCE FALL RISK FACTORS AND ESTABLISH HOME EXERCISE PROGRAM TO MINIMIZE FALL RISK. MAY TEACH THE PATIENT FLOOR RECOVERY WHEN CLINICALLY APPROPRIATE] Future Scheduled Test PT / FIGURINE MAKER T O EDUCATE ON DIABETES SELF- MANAGEMENT [code = PT / FIGURINE MAKER TO EDUCATE ON DIABETES SELF- MANAGEMENT] Future Scheduled Test PT TO ASSE SS / FIGURINE MAKER TO MONITOR FOR HEART FAILURE EXACERBATION AND RECORD PATIENT REPORTED WEIGHT, AND NOTIFY THE PHYSICIAN AND/OR THE RN CLINICAL WATCH ASSEMBLY INSPECTOR FOR PHYSICIAN NOTIFICATION OF HF EXACERBATION (2LB WEIGHT GAIN IN 1 DAY, 5LBS IN A WEEK OR 5 LBS OVER BASELINE; INCREASED SOB, EDEMA, NEEDING MORE PILLOWS AT NIGHT, CRACKLES IN BASIS OF THE LUNGS OR PMI SHIFT) [code = PT TO ASSESS / FIGURINE MAKER TO MONITOR FOR HEART FAILURE EXACERBATION AND RECORD PATIENT REPORTED WEIGHT, AND NOTIFY THE PHYSICIAN AND/OR THE RN CLINICAL WATCH ASSEMBLY INSPECTOR FOR PHYSICIAN NOTIFICATION OF HF EXACERBATION (2LB WEIGHT GAIN IN 1 DAY, 5LBS IN A WEEK OR 5 LBS OVER BASELINE; INCREASED SOB, EDEMA, NEEDING MORE PILLOWS AT NIGHT, CRACKLES IN BASIS OF THE LUNGS OR PMI SHIFT)] Future Scheduled Test PT TO ASSE SS / FIGURINE MAKER TO MONITOR FOR AND REPORT EARLY SIGNS OF ANTICOAGULANT TOXICITY TO THE PHYSICIAN AND/OR THE RN CLINICAL WATCH ASSEMBLY INSPECTOR FOR PHYSICIAN NOTIFICATION AND TO PROVIDE PATIENT/CAREGIVER EDUCATION ON ANTICOAGULANT THERAPY [code = PT TO ASSESS / FIGURINE MAKER TO MONITOR FOR AND REPORT EARLY SIGNS OF ANTICOAGULANT TOXICITY TO THE PHYSICIAN AND/OR THE RN CLINICAL WATCH ASSEMBLY INSPECTOR FOR PHYSICIAN NOTIFICATION AND TO PROVIDE PATIENT/CAREGIVER EDUCATION ON ANTICOAGULANT THERAPY] Future Scheduled Test PT / FIGURINE MAKER T O MONITOR FOR HYPO/HYPERGLYCEMIA AND CONDUCT ROUTINE FOOT INSPECTIONS. RECORD PATIENT REPORTED BLOOD SUGAR LEVELS AND NOTIFY PHYSICIAN AND/OR THE RN CLINICAL WATCH ASSEMBLY INSPECTOR FOR PHYSICIAN NOTIFICATION IF BLOOD SUGAR LEVELS ARE OUTSIDE ORDERED PARAMETERS. TEACH PATIENT/CAREGIVER ON DAILY FOOT INSPECTIONS [code = PT / FIGURINE MAKER TO MONITOR FOR HYPO/HYPERGLYCEMIA AND CONDUCT ROUTINE FOOT INSPECTIONS. RECORD PATIENT REPORTED BLOOD SUGAR LEVELS AND NOTIFY PHYSICIAN AND/OR THE RN CLINICAL WATCH ASSEMBLY INSPECTOR FOR PHYSICIAN NOTIFICATION IF BLOOD SUGAR LEVELS ARE OUTSIDE ORDERED PARAMETERS. TEACH PATIENT/CAREGIVER ON DAILY FOOT INSPECTIONS] Future Scheduled Test SKILLED NU RSING TO EVALUATE FOR MEDICATION EDUCATION ... [code = SENIOR LIVING TO EVALUATE FOR MEDICATION EDUCATION ...] Future Scheduled Test OCCUPATION AL THERAPIST TO EVALUATE FOR SAFETY AND INDEPENDENCE WITH ADLS ... [code = OCCUPATIONAL THERAPIST TO EVALUATE FOR SAFETY AND INDEPENDENCE WITH ADLS ...] Future Scheduled Test AGENCY MAY PERFORM A RESUMPTION OF CARE VISIT FOLLOWING ANY HOSPITAL ADMISSION. OT TO EVALUATE, OBSERVE / ASSESS, AND MONITOR, ANDREZ TO OBSERVE AND MONITOR, PROVIDE SKILLED THERAPEUTIC INTERVENTION, ACTIVITY, EDUCATION, AND TRAINING TO ADDRESS SAFETY AND INDEPENDENCE OF ADLS AND FUNCTIONAL TRANSFERS IN HOME ENVIRONMENT. TOILETING HYGIENE (OT/I&C TECHNICIAN) DRESSING (OT/I&C TECHNICIAN) ACTIVITIES OF DAILY LIVING (OT/ANDREZ) TOILET TRANSFER (OT/I&C TECHNICIAN) THERAPEUTIC EXERCISE (OT/ANDREZ) OT / ANDREZ TO EDUCATE ON PACEMAKER SELF-MANAGEMENT OT / ANDREZ TO EDUCATE ON DIABETES SELF- MANAGEMENT OT/ANDREZ TO MONITOR AND EDUCATE ON OXYGEN SATURATION DURING ADLS/IADLS, NOTIFY PHYSICIAN AND/OR THE RN CLINICAL WATCH ASSEMBLY INSPECTOR FOR PHYSICIAN NOTIFICATION AND IF O2 SATS BELOW 90% AFTER 10 MIN OF REST. OT/ANDREZ TO MONITOR PATIENT WITH STABLE DEPRESSION ON SIGNS AND SYMPTOMS OF WORSENING DEPRESSION AND AVAILABLE RESOURCES INCLUDING [address] [place] [address]. OT/I&C TECHNICIAN MAY EDUCATE ON PAIN MANAGEMENT CLINICALLY INDICATED, INCLUDING NON-PHARMACOLOGICAL PAIN REDUCTION TECHNIQUES OT / I&C TECHNICIAN TO IDENTIFY FALL RISK FACTORS; EDUCATE THE PATIENT/CAREGIVER ON WAYS TO REDUCE FALL RISK FACTORS AND ESTABLISH HOME EXERCISE PROGRAM TO MINIMIZE FALL RISK. MAY TEACH THE PATIENT FLOOR RECOVERY WHEN CLINICALLY APPROPRIATE. OT/I&C TECHNICIAN TO EDUCATE ON HYPERTENSION SELF-MANAGEMENT OT/ANDREZ TO EDUCATE ON ATRIAL FIBRILLATION SELF-MANAGEMENT. OT / ANDREZ TO EDUCATE ON CVA SELF-MANAGEMENT OT / ANDREZ TO EDUCATE ON PARKINSONS SELF MANAGEMENT [code = AGENCY MAY PERFORM A RESUMPTION OF CARE VISIT FOLLOWING ANY HOSPITAL ADMISSION. OT TO EVALUATE, OBSERVE / ASSESS, AND MONITOR, ANDREZ TO OBSERVE AND MONITOR, PROVIDE SKILLED THERAPEUTIC INTERVENTION, ACTIVITY, EDUCATION, AND TRAINING TO ADDRESS SAFETY AND INDEPENDENCE OF ADLS AND FUNCTIONAL TRANSFERS IN HOME ENVIRONMENT. TOILETING HYGIENE (OT/ANDREZ) DRESSING (OT/I&C TECHNICIAN) ACTIVITIES OF DAILY LIVING (OT/ANDREZ) TOILET TRANSFER (OT/I&C TECHNICIAN) THERAPEUTIC EXERCISE (OT/ANDREZ) OT / I&C TECHNICIAN TO EDUCATE ON PACEMAKER SELF-MANAGEMENT OT / I&C TECHNICIAN TO EDUCATE ON DIABETES SELF- MANAGEMENT OT/I&C TECHNICIAN TO MONITOR AND EDUCATE ON OXYGEN SATURATION DURING ADLS/IADLS, NOTIFY PHYSICIAN AND/OR THE RN CLINICAL WATCH ASSEMBLY INSPECTOR FOR PHYSICIAN NOTIFICATION AND IF O2 SATS BELOW 90% AFTER 10 MIN OF REST. OT/I&C TECHNICIAN TO MONITOR PATIENT WITH STABLE DEPRESSION ON SIGNS AND SYMPTOMS OF WORSENING DEPRESSION AND AVAILABLE RESOURCES INCLUDING 988 SUICIDE CRISIS LIFELINE. OT/ANDREZ MAY EDUCATE ON PAIN MANAGEMENT CLINICALLY INDICATED, INCLUDING NON-PHARMACOLOGICAL PAIN REDUCTION TECHNIQUES OT / ANDREZ TO IDENTIFY FALL RISK FACTORS; EDUCATE THE PATIENT/CAREGIVER ON WAYS TO REDUCE FALL RISK FACTORS AND ESTABLISH HOME EXERCISE PROGRAM TO MINIMIZE FALL RISK. MAY TEACH THE PATIENT FLOOR RECOVERY WHEN CLINICALLY APPROPRIATE. OT/ANDREZ TO EDUCATE ON HYPERTENSION SELF-MANAGEMENT OT/I&C TECHNICIAN TO EDUCATE ON ATRIAL FIBRILLATION SELF-MANAGEMENT. 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 Goal Provider Goal - Goal Provider Goal - PT STG: PATIENT WILL DEMONSTRATE IMPROVED ABILITY TO PERFORM SIT TO/FROM STAND TRANSFERS TO REDUCE THE RISK OF SKIN BREAKDOWN AND REDUCE FALL RISK FROM MAX ASSIST TO MINIMAL ASSISTANCE IN 4 WEEKS PT LTG:PATIENT WILL DEMONSTRATE IMPROVED ABILITY TO PERFORM SIT TO/FROM STAND TRANSFERS TO REDUCE THE RISK OF SKIN BREAKDOWN AND REDUCE FALL RISK FROM MIN ASSIST TO INDEP IN 8 WEEKS Goal Provider Goal - PT LTG: PATIENT WILL DEMONSTRATE IMPROVED ABILITY TO PERFORM CHAIR TRANSFERS TO REDUCE THE RISK OF SKIN BREAKDOWN AND FALL RISK MAX DANCE HISTORIAN TO INDEP IN 8 WEEKS Goal Provider Goal - PT LTG: PATIENT WILL DEMONSTRATE IMPROVED SAFE FUNCTIONAL MOBILITY BY IMPROVING AMBULATION FROM CONTACT GUARD ASSIST WITH FRONT WHEELED WALKER FOR 50 FEET TO INDEPENDENT WITH FRONT WHEELED WALKER 150 FEET IN ORDER TO ATTEND DOCTOR'S APPOINTMENTS IN 8 WEEKS ... Goal Provider Goal - PT LTG: PATIENT WILL DEMONSTRATE REDUCED FALL RISK EVIDENCED BY IMPROVING TINETTI SCORE FROM 7/28 TO 18/28 IN 8 WEEKS ... Goal Provider Goal - PT LTG: PATIENT WILL DEMONSTRATE IMPROVED FUNCTIONAL STRENGTH EVIDENCED BY FIVE TIMES SIT TO STAND TEST (CUT SCORE >12 SECONDS INDICATES AN INCREASED FALL RISK) IMPROVING FROM UNABLE TO ASSESS TO COMPLETING IN 30 SECONDS WITH UPPER EXTREMITY ASSIST IN 8 WEEKS PT LTG: PATIENT WILL DEMONSTRATE INCREASED STRENGTH OF LEFT LOWER EXTREMITY FROM 3/5 TO 4/5 IN 8 WEEKS ... Goal Provider Goal - PT LTG: PATIENT/CAREGIVER WILL DEMONSTRATE ADHERENCE TO FALL REDUCTION SELF-MANAGEMENT AND REDUCING FALL RISK FACTORS TO MINIMIZE FALL RISK BY END OF EPISODE PT LTG: PATIENT WILL BE INDEPENDENT WITH IMPLEMENTATION OF HEP WITHIN 3 WEEKS PT LTG: CAREGIVER WILL BE INDEPENDENT ASSISTING PATIENT TO COMPLETE HEP WITHIN 3WEEKS Goal Provider Goal - PATIENT/CAREGIVER WILL BE ABLE TO IDENTIFY SIGNS OF HYPER- AND HYPOGLYCEMIA AND VERBALIZE HOW TO MANAGE SYMPTOMS. Goal Provider Goal - PT GOAL: PATIENTS HEART FAILURE WILL REMAIN WELL CONTROLLED THROUGHOUT EPISODE OF CARE. Goal Provider Goal - PT LTG: PATIENT WILL NOT EXHIBIT SIGNS AND SYMPTOMS OF ANTICOAGULANT TOXICITY THROUGHOUT EPISODE OF CARE. Goal Provider Goal - PATIENTS BLOOD SUGAR WILL REMAIN WELL CONTROLLED WITH SELF-MANAGEMENT THROUGHOUT EPISODE OF CARE. Goal Provider Goal - Goal Provider Goal - Goal Provider Goal - OT STG: PATIENT WILL IMPROVE TOILET HYGIENE AND CM FROM MOD A TO CGA USING AE NEEDED WITHIN 5 WEEKS. OT LTG: PATIENT WILL DEMONSTRATE IMPROVED ABILITY TO PERFORM TOILET HYGIENE AND REDUCE THE RISK OF DEVELOPING A UTI FROM MOD A TO MOD I WITHIN 9 WEEKS. OT STG: PATIENT WILL IMPROVE LB DRESSING FROM MAX A TO MIN A USING AE/ COMP STRATEGIES NEEDED WITHIN 5 WEEKS. OT LTG: PATIENT WILL DEMONSTRATE IMPROVED ABILITY TO PERFORM LOWER BODY DRESSING TO REDUCE CAREGIVER BURDEN FROM MAX A TO MOD I WITHIN 9 WEEKS. OT LTG: PATIENT WILL DEMONSTRATE IMPROVEMENT IN MODIFIED COSMO INDEX SCORE FROM 71 TO 91 INDICATING DECREASED DEPENDENCY ON CAREGIVER ASSISTANCE WITH ACTIVITIES OF DAILY LIVING WITHIN 9 WEEKS. OT LTG: PATIENT WILL DEMONSTRATE IMPROVED ABILITY TO PERFORM TOILET TRANSFERS TO REDUCE FALL RISK AND RISK OF INCONTINENCE AND UTI DEVELOPMENT FROM CGA TO MOD I WITHIN 9 WEEKS. OT LTG: PATIENT WILL DEMONSTRATE IMPROVED LEFT RADIOLOGY EQUIPMENT SERVICER STRENGTH EVIDENCED BY AN IMPROVEMENT IN DYNAMOMETER MEASUREMENTS FROM 46 TO 52 WITHIN 9 WEEKS IN ORDER TO PERFORM UB ADLS. OT LTG: PATIENT WILL DEMONSTRATE IMPROVED LUE MUSCLE STRENGTH EVIDENCED BY AN IMPROVEMENT IN MMT/FUNCTIONAL STRENGTH FROM 3+/5 TO 4-/ WITHIN I WEEKS IN ORDER TO COMPLETE ADLS AND FUNCTIONAL TRANSERS. OT LTG: PATIENT WILL DEMONSTRATE IMPROVED ROM IN LUE SHOULDER FROM 64 TO 74 FOR FLEXION AND 82 TO 90 FOR ABDUCTION WITHIN 9 WEEKS IN ORDER TO COMPLETE UB ADLS. OT GOAL: PATIENT/CAREGIVER WILL BE ABLE TO VERBALIZE UNDERSTANDING OF A PACEMAKER, SIGNS/SYMPTOMS TO REPORT, WELL SELF-MANAGEMENT AND LIFE-STYLE CHANGES TO IMPROVE QUALITY OF LIFE AND REDUCE CAREGIVER BURDEN BY END OF EPISODE. OT GOAL: PATIENT/CAREGIVER WILL BE ABLE TO IDENTIFY SIGNS OF HYPER- AND HYPOGLYCEMIA AND VERBALIZE HOW TO MANAGE SYMPTOMS. OT LTG: PATIENT WILL MAINTAIN OXYGEN SATURATION WITHIN PHYSICIAN ORDERED PARAMETERS THROUGHOUT THE EPISODE OF CARE. OT GOAL: EARLY IDENTIFICATION OF WORSENING DEPRESSION WITH TIMELY SN AND/OR PHYSICIAN NOTIFICATION. OT LTG: PATIENT WILL DEMONSTRATE UNDERSTANDING OF PAIN MANAGEMENT TECHNIQUES EVIDENCED BY REDUCED PAIN IN LLE FROM 7 TO 4 WITHIN 9 WEEKS. OT LTG: PATIENT/CAREGIVER WILL BE ABLE TO IMPLEMENT RECOMMENDATIONS SPECIFIC TO FALL REDUCTION FOR IMPROVED ADL/IADL COMPLETION AND HOME SAFETY BY END OF EPISODE. OT LTG: PATIENT WILL BE INDEPENDENT WITH IMPLEMENTATION OF HEP WITHIN 9 WEEKS. OT GOAL: PATIENT/CAREGIVER WILL BE ABLE TO IDENTIFY SIGNS OF EXACERBATION OF HYPERTENSION AND WILL VERBALIZE/DEMONSTRATE AN ABILITY TO ADHERE TO HYPERTENSION SELF-MANAGEMENT AND LIFE-STYLE CHANGES BY END OF EPISODE . OT GOAL: PATIENT/CAREGIVER WILL BE ABLE TO IDENTIFY SIGNS OF ATRIAL FIBRILLATION EXACERBATION AND WILL VERBALIZE/DEMONSTRATE AN ABILITY TO ADHERE TO ATRIAL FIBRILLATION SELF-MANAGEMENT AND LIFE-STYLE CHANGES BY END OF EPISODE. OT GOAL: PATIENT/CAREGIVER WILL BE VERBALIZE UNDERSTANDING OF A CVA, SIGNS/SYMPTOMS TO REPORT, WELL SELF-MANAGEMENT AND LIFE-STYLE CHANGES BY END OF EPISODE. OT GOAL: PATIENT/CAREGIVER WILL VERBALIZE UNDERSTANDING OF A PARKINSON'S SELF-MANAGEMENT AND LIFE-STYLE CHANGES BY END OF EPISODE. Encounters Start Date/Time End Date/Time Encounter Type Admission Type Attending [facility] Care Department Encounter ID Discharge Date Discharge Status Discharge Condition Discharge Reason Percent Goals Met 2024-12-11 00:00:00 2025-02-08 00:00:00 Outpatient NEW ADMISSION [facility] [id number] 47.46
--- OUTSIDE RECORDS SUMMARY | 2025-01-20 16:44 | XMS_ITS | Clinical Summary ---
Author Organization Unknown Care Team Providers Care Cvicu Rn Name Role Phone RUMA MAKE UP ARTIST, GURMEET Unavailable Unavailable ANITHA PT, BROCK Unavailable Unavailable CHRISTINE MANAGER PRIVATE, JAZMINE Unavailable Unavailable MARIVEL OT, MANDY Unavailable Unavailable ALBANIA RN, MEGAN Unavailable Unavailable Payers Payer Name Policy Type Policy Number Effective Date Expira tion Date MEDICARE.[facility] [id number] Problems Condition Name Condition Details Condition Category [...] 12-11 00:00: 00 ATHSCL HEART DISEASE OF [place] CORONARY ARTERY W/O ANG PCTRS Active 12-11 [...] HISTORY OF COVID-19 Active 12-05 00:00: 00 LONGTERM (CURRENT) USE OF INSULIN Active 06-08 00:00: 00 LONGTERM (CURRENT) USE OF ASPIRIN Active 06-08 00:00: [...] on aerosol inhaler 11-24 00:00: 00 Yes [id number] WHEEZING 1 puff EVERY 4 HOURS NEEDED 1 puff EVERY 4 HOURS NEEDED (route: inhalation ) Med Classific ation: Respirato ry Therapy Agents cetirizine 10 mg tablet 11-23 00:00: 00 Yes [id number] ALLERGIES 1 tablet ONCE DAILY 1 tablet ONCE DAILY (route: oral) Med Classific ation: Respirato ry Therapy Agents ferrous sulfate 325 mg (65 mg iron) tablet,[facility] yed release 11-23 00:00: 00 Yes [id number] SUPPLEMENTE D 1 tablet DAILY 1 tablet DAILY (route: oral) Med Classific ation: Electroly te Balance-N utritiona l Products folic acid 1 mg tablet 11-23 00:00: 00 Yes [id number] SUPPLEMENT 1 tablet DAILY 1 tablet DAILY (route: oral) Med Classific ation: Electroly te Balance-N utritiona l Products magnesium oxide 400 mg (241.3 mg magnesium) tablet 11-23 00:00: 00 12-11 00:00 :00 No [id number] Per instruc tions TWICE DAILY Per instructio ns TWICE DAILY (route: oral) Med Classific ation: Electroly te Balance-N utritiona l Products allopurinol 100 mg tablet 11-18 00:00: 00 Yes [id number] GOUT 1 tablet DAILY 1 tablet DAILY (route: oral) Med Classific ation: Gout and Hyperuric emia Therapy atorvastati n 40 mg tablet 11-18 00:00: 00 Yes [id number] HIGH CHOLESTEROL 1 tablet DAILY 1 tablet DAILY (route: oral) Med Classific ation: Cardiovas cular Therapy Agents diltiazem 90 mg tablet 11-18 00:00: 00 12-11 00:00 :00 No [id number] Per instruc tions TWICE DAILY Per instructio ns TWICE DAILY (route: oral) Med Classific ation: Cardiovas cular Therapy Agents furosemide 40 mg tablet 11-18 00:00: 00 Yes [id number] EDEMA 1 tablet DAILY 1 tablet DAILY (route: oral) Med Classific ation: Cardiovas cular Therapy Agents metformin 1,000 mg tablet 11-18 00:00: 00 12-11 00:00 :00 No [id number] Unavailable Per instruc tions (1000MG) TWICE DAILY Per instructio ns (1000MG) TWICE DAILY (route: oral) Med Classific ation: Endocrine montelukast 10 mg tablet 11-18 00:00: 00 Yes [id number] ASTHMA 1 tablet AT BEDTIME 1 tablet AT BEDTIME (route: oral) Med Classific ation: Respirato ry Therapy Agents pantoprazol e 40 mg tablet,[facility] yed release 11-18 00:00: 00 Yes [id number] GERD 1 tablet DAILY 1 tablet DAILY (route: oral) Med Classific ation: Gastroint estinal Therapy Agents potassium chloride ER 20 mEq tablet,exte nded release(par t/cryst) 11-18 00:00: 00 12-11 00:00 :00 No [id number] Per instruc tions DAILY Per instructio ns DAILY (route: oral) Med Classific ation: Electroly te Balance-N utritiona l Products tamsulosin 0.4 mg capsule 11-18 00:00: 00 Yes [id number] BPH 1 capsule DAILY AT BEDTIME 1 capsule DAILY AT BEDTIME (route: oral) Med Classific ation: Genitouri nary Therapy triamcinolo ne acetonide 0.1 % topical cream 11-18 00:00: 00 12-11 00:00 :00 No [id number] Per instruc tions TWICE DAILY FOR 5 OUT OF 7 DAYS EUCERIN TWICE DAILY FOR OTHER TWO DAYS OF THE WEEK Per instructio ns TWICE DAILY FOR 5 OUT OF 7 DAYS EUCERIN TWICE DAILY FOR OTHER TWO DAYS OF THE WEEK (route: topical) Med Classific ation: Dermatolo gical valsartan 40 mg tablet 11-18 00:00: 00 12-11 00:00 :00 No [id number] Per instruc tions DAILY Per instructio ns DAILY (route: oral) Med Classific ation: Cardiovas cular Therapy Agents Xarelto 20 mg tablet 6-13 00:00: 00 Yes [id number] BLOOD THINNER 1 tablet DAILY 1 tablet DAILY (route: oral) Med Classific ation: Hematolog ical Agents Lantus U-100 Insulin 100 unit/mL subcutaneou s solution -10 00:00: 00 Yes [id number] DIABETIS 16 unit SUBCUTANEO USLY DAILY AT BEDTIME 16 unit SUBCUTANEO USLY DAILY AT BEDTIME (route: subcutaneo us) Med Classific ation: Endocrine acetaminoph en 500 mg tablet 12-11 00:00: 00 Yes [id number] PAIN 2 tablet EVERY 6 HOURS 2 tablet EVERY 6 HOURS (route: oral) Med Classific ation: Analgesic , Anti-infl ammatory or Antipyret ic aspirin 325 mg tablet 12-11 00:00: 00 Yes [id number] BLOOD THINNER 1 tablet DAILY 1 tablet DAILY (route: oral) Med Classific ation: Analgesic , Anti-infl ammatory or Antipyret ic gabapentin 600 mg tablet 12-11 00:00: 00 Yes [id number] PAIN 1 tablet DAILY 1 tablet DAILY (route: oral) Med Classific ation: Central Nervous System Agents Keppra 500 mg tablet 12-11 00:00: 00 Yes [id number] SEIZURES 2 tablet 2 TIMES DAILY 2 tablet 2 TIMES DAILY (route: oral) Med Classific ation: Central Nervous System Agents Multivitami n 50 Plus tablet 12-11 00:00: 00 Yes [id number] SUPPLEMENT 1 tablet DAILY 1 tablet DAILY (route: oral) Med Classific ation: Electroly te Balance-N utritiona l Products potassium chloride ER 20 mEq tablet,exte nded release 12-11 00:00: 00 Yes [id number] SUPPLEMENT 1 tablet DAILY 1 tablet DAILY (route: oral) Med Classific ation: Electroly te Balance-N utritiona l Products famotidine 20 mg tablet 01-02 00:00: 00 Yes [id number] GERD 1 tablet DAILY 1 tablet DAILY (route: oral) Med Classific ation: Gastroint estinal Therapy Agents pramipexole ER 0.375 mg tablet,exte nded release 24 hr 01-02 00:00: 00 Yes [id number] PARKINSON'S ... 1 tablet DAILY 1 tablet [...] TO EVALUATE, OBSERVE / ASSESS, AND MONITOR, MANAGER PRIVATE TO OBSERVE AND MONITOR, PROVIDE SKILLED THERAPEUTIC INTERVENTION, ACTIVITY, EDUCATION, AND TRAINING TO ADDRESS; [code = AGENCY MAY PERFORM A RESUMPTION OF CARE VISIT FOLLOWING ANY HOSPITAL ADMISSION. PT TO EVALUATE, OBSERVE / ASSESS, AND MONITOR, MANAGER PRIVATE TO OBSERVE AND MONITOR, PROVIDE SKILLED THERAPEUTIC INTERVENTION, ACTIVITY, EDUCATION, AND TRAINING TO ADDRESS;] Future Scheduled Test SIT TO/FRO M STAND TRANSFERS (PT/MANAGER PRIVATE) [code = SIT TO/FROM STAND TRANSFERS (PT/MANAGER PRIVATE)] Future Scheduled Test CHAIR ORELLANA SFERS (PT/MANAGER PRIVATE) [code = CHAIR TRANSFERS (PT/MANAGER PRIVATE)] Future Scheduled Test PT/MANAGER PRIVATE TO PROVIDE GAIT TRAINING FOR IMPROVED MOBILITY AND /OR TO NORMALIZE GAIT PATTERN [code = PT/MANAGER PRIVATE TO PROVIDE GAIT TRAINING FOR IMPROVED MOBILITY AND /OR TO NORMALIZE GAIT PATTERN] Future Scheduled Test NEUROMUSCU LAR RE-EDUCATION / BALANCE / POSTURAL CONTROL (PT) [code = NEUROMUSCULAR RE-EDUCATION / BALANCE / POSTURAL CONTROL (PT)] Future Scheduled Test THERAPEUTI C EXERCISES AND ESTABLISHING A HOME EXERCISE PROGRAM (PT/MANAGER PRIVATE) [code = THERAPEUTIC EXERCISES AND ESTABLISHING A HOME EXERCISE PROGRAM (PT/MANAGER PRIVATE)] Future Scheduled Test PT/MANAGER PRIVATE TO IDENTIFY FALL RISK FACTORS; EDUCATE THE PATIENT/CAREGIVER ON WAYS TO REDUCE FALL RISK FACTORS AND ESTABLISH HOME EXERCISE PROGRAM TO MINIMIZE FALL RISK. MAY TEACH THE PATIENT FLOOR RECOVERY WHEN CLINICALLY APPROPRIATE [code = PT/MANAGER PRIVATE TO IDENTIFY FALL RISK FACTORS; EDUCATE THE PATIENT/CAREGIVER ON WAYS TO REDUCE FALL RISK FACTORS AND ESTABLISH HOME EXERCISE PROGRAM TO MINIMIZE FALL RISK. MAY TEACH THE PATIENT FLOOR RECOVERY WHEN CLINICALLY APPROPRIATE] Future Scheduled Test PT / MANAGER PRIVATE T O EDUCATE ON DIABETES SELF- MANAGEMENT [code = PT / MANAGER PRIVATE TO EDUCATE ON DIABETES SELF- MANAGEMENT] Future Scheduled Test PT TO ASSE SS / MANAGER PRIVATE TO MONITOR FOR HEART FAILURE EXACERBATION AND RECORD PATIENT REPORTED WEIGHT, AND NOTIFY THE PHYSICIAN AND/OR THE RN CLINICAL SECTION BEAMER FOR PHYSICIAN NOTIFICATION OF HF EXACERBATION (2LB WEIGHT GAIN IN 1 DAY, 5LBS IN A WEEK OR 5 LBS OVER BASELINE; INCREASED SOB, EDEMA, NEEDING MORE PILLOWS AT NIGHT, CRACKLES IN BASIS OF THE LUNGS OR PMI SHIFT) [code = PT TO ASSESS / MANAGER PRIVATE TO MONITOR FOR HEART FAILURE EXACERBATION AND RECORD PATIENT REPORTED WEIGHT, AND NOTIFY THE PHYSICIAN AND/OR THE RN CLINICAL SECTION BEAMER FOR PHYSICIAN NOTIFICATION OF HF EXACERBATION (2LB WEIGHT GAIN IN 1 DAY, 5LBS IN A WEEK OR 5 LBS OVER BASELINE; INCREASED SOB, EDEMA, NEEDING MORE PILLOWS AT NIGHT, CRACKLES IN BASIS OF THE LUNGS OR PMI SHIFT)] Future Scheduled Test PT TO ASSE SS / MANAGER PRIVATE TO MONITOR FOR AND REPORT EARLY SIGNS OF ANTICOAGULANT TOXICITY TO THE PHYSICIAN AND/OR THE RN CLINICAL SECTION BEAMER FOR PHYSICIAN NOTIFICATION AND TO PROVIDE PATIENT/CAREGIVER EDUCATION ON ANTICOAGULANT THERAPY [code = PT TO ASSESS / MANAGER PRIVATE TO MONITOR FOR AND REPORT EARLY SIGNS OF ANTICOAGULANT TOXICITY TO THE PHYSICIAN AND/OR THE RN CLINICAL SECTION BEAMER FOR PHYSICIAN NOTIFICATION AND TO PROVIDE PATIENT/CAREGIVER EDUCATION ON ANTICOAGULANT THERAPY] Future Scheduled Test PT / MANAGER PRIVATE T O MONITOR FOR HYPO/HYPERGLYCEMIA AND CONDUCT ROUTINE FOOT INSPECTIONS. RECORD PATIENT REPORTED BLOOD SUGAR LEVELS AND NOTIFY PHYSICIAN AND/OR THE RN CLINICAL SECTION BEAMER FOR PHYSICIAN NOTIFICATION IF BLOOD SUGAR LEVELS ARE OUTSIDE ORDERED PARAMETERS. TEACH PATIENT/CAREGIVER ON DAILY FOOT INSPECTIONS [code = PT / MANAGER PRIVATE TO MONITOR FOR HYPO/HYPERGLYCEMIA AND CONDUCT ROUTINE FOOT INSPECTIONS. RECORD PATIENT REPORTED BLOOD SUGAR LEVELS AND NOTIFY PHYSICIAN AND/OR THE RN CLINICAL SECTION BEAMER FOR PHYSICIAN NOTIFICATION IF BLOOD SUGAR LEVELS ARE OUTSIDE ORDERED PARAMETERS. TEACH PATIENT/CAREGIVER ON DAILY FOOT INSPECTIONS] Future Scheduled Test SKILLED NU RSING TO EVALUATE FOR MEDICATION EDUCATION ... [code = INTERMEDIATE TO EVALUATE FOR MEDICATION EDUCATION ...] Future [...] FUNCTIONAL TRANSFERS IN HOME ENVIRONMENT. TOILETING HYGIENE (OT/MANAGER MILITARY) DRESSING (OT/MANAGER MILITARY) ACTIVITIES OF DAILY LIVING (OT/ANDREZ) TOILET TRANSFER (OT/MANAGER MILITARY) THERAPEUTIC EXERCISE (OT/ANDREZ) OT / ANDREZ TO EDUCATE ON PACEMAKER SELF-MANAGEMENT OT / ANDREZ TO EDUCATE ON DIABETES SELF- MANAGEMENT OT/ANDREZ TO MONITOR AND EDUCATE ON OXYGEN SATURATION DURING ADLS/IADLS, NOTIFY PHYSICIAN AND/OR THE RN CLINICAL SECTION BEAMER FOR PHYSICIAN NOTIFICATION AND IF O2 SATS BELOW 90% AFTER 10 MIN OF REST. OT/ANDREZ TO MONITOR PATIENT WITH STABLE DEPRESSION ON SIGNS AND SYMPTOMS OF WORSENING DEPRESSION AND AVAILABLE RESOURCES INCLUDING [address] [place] [address]. OT/MANAGER MILITARY MAY EDUCATE ON PAIN MANAGEMENT CLINICALLY INDICATED, INCLUDING NON-PHARMACOLOGICAL PAIN REDUCTION TECHNIQUES OT / MANAGER MILITARY TO IDENTIFY FALL RISK FACTORS; EDUCATE THE PATIENT/CAREGIVER ON WAYS TO REDUCE FALL RISK FACTORS AND ESTABLISH HOME EXERCISE PROGRAM TO MINIMIZE FALL RISK. MAY TEACH THE PATIENT FLOOR RECOVERY WHEN CLINICALLY APPROPRIATE. OT/MANAGER MILITARY TO EDUCATE ON HYPERTENSION SELF-MANAGEMENT OT/ANDREZ TO [...] IN HOME ENVIRONMENT. TOILETING HYGIENE (OT/ANDREZ) DRESSING (OT/MANAGER MILITARY) ACTIVITIES OF DAILY LIVING (OT/ANDREZ) TOILET TRANSFER (OT/MANAGER MILITARY) THERAPEUTIC EXERCISE (OT/ANDREZ) OT / MANAGER MILITARY TO EDUCATE ON PACEMAKER SELF-MANAGEMENT OT / MANAGER MILITARY TO EDUCATE ON DIABETES SELF- MANAGEMENT OT/MANAGER MILITARY TO MONITOR AND EDUCATE ON OXYGEN SATURATION DURING ADLS/IADLS, NOTIFY PHYSICIAN AND/OR THE RN CLINICAL SECTION BEAMER FOR PHYSICIAN NOTIFICATION AND IF O2 SATS BELOW 90% AFTER 10 MIN OF REST. OT/MANAGER MILITARY TO MONITOR PATIENT WITH STABLE DEPRESSION ON [...] APPROPRIATE. OT/ANDREZ TO EDUCATE ON HYPERTENSION SELF-MANAGEMENT OT/MANAGER MILITARY TO EDUCATE ON ATRIAL FIBRILLATION SELF-MANAGEMENT. OT [...] OF SKIN BREAKDOWN AND FALL RISK MAX MOLDING MACHINE OPERATOR TO INDEP IN 8 WEEKS Goal Provider [...] OT LTG: PATIENT WILL DEMONSTRATE IMPROVED LEFT ROUGHENER STRENGTH EVIDENCED BY AN IMPROVEMENT IN DYNAMOMETER [...] End Date/Time Encounter Type Admission Type Attending [facility] Care Department Encounter ID Discharge Date Discharge Status Discharge Condition Discharge Reason Percent Goals Met 2024-12-11 00:00:00 2025-02-08 00:00:00 Outpatient NEW ADMISSION [facility] [id number] 47.46
--- OUTSIDE RECORDS SUMMARY | 2025-01-20 16:50 | XMS_ITS | Clinical Summary ---
Author Organization Unknown Care Team Providers Care Hard Tile Setter Name Role Phone RUMA MINK FARMER, GURMEET Unavailable Unavailable ANITHA PT, BROCK Unavailable Unavailable CHRISTINE PORTABLE TRACKMAN, JAZMINE Unavailable Unavailable MARIVEL OT, MANDY Unavailable Unavailable ALBANIA RN, MEGAN Unavailable Unavailable Payers Payer Name Policy Type Policy Number Effective Date Expira tion Date MEDICARE.[facility] [id number] Problems Condition Name Condition Details Condition Category [...] 12-11 00:00: 00 ATHSCL HEART DISEASE OF [place] CORONARY ARTERY W/O ANG PCTRS Active 12-11 [...] HISTORY OF COVID-19 Active 12-05 00:00: 00 DETENTION (CURRENT) USE OF INSULIN Active 06-08 00:00: 00 DETENTION (CURRENT) USE OF ASPIRIN Active 06-08 00:00: [...] on aerosol inhaler 11-24 00:00: 00 Yes [id number] WHEEZING 1 puff EVERY 4 HOURS NEEDED 1 puff EVERY 4 HOURS NEEDED (route: inhalation ) Med Classific ation: Respirato ry Therapy Agents cetirizine 10 mg tablet 11-23 00:00: 00 Yes [id number] ALLERGIES 1 tablet ONCE DAILY 1 tablet ONCE DAILY (route: oral) Med Classific ation: Respirato ry Therapy Agents ferrous sulfate 325 mg (65 mg iron) tablet,[facility] release 11-23 00:00: 00 Yes [id number] SUPPLEMENTE D 1 tablet DAILY 1 tablet DAILY (route: oral) Med Classific ation: Electroly te Balance-N utritiona l Products folic acid 1 mg tablet 11-23 00:00: 00 Yes [id number] SUPPLEMENT 1 tablet DAILY 1 tablet DAILY (route: oral) Med Classific ation: Electroly te Balance-N utritiona l Products magnesium oxide 400 mg (241.3 mg magnesium) tablet 11-23 00:00: 00 12-11 00:00 :00 No [id number] Per instruc tions TWICE DAILY Per instructio ns TWICE DAILY (route: oral) Med Classific ation: Electroly te Balance-N utritiona l Products allopurinol 100 mg tablet 11-18 00:00: 00 Yes [id number] GOUT 1 tablet DAILY 1 tablet DAILY (route: oral) Med Classific ation: Gout and Hyperuric emia Therapy atorvastati n 40 mg tablet 11-18 00:00: 00 Yes [id number] HIGH CHOLESTEROL 1 tablet DAILY 1 tablet DAILY (route: oral) Med Classific ation: Cardiovas cular Therapy Agents diltiazem 90 mg tablet 11-18 00:00: 00 12-11 00:00 :00 No [id number] Per instruc tions TWICE DAILY Per instructio ns TWICE DAILY (route: oral) Med Classific ation: Cardiovas cular Therapy Agents furosemide 40 mg tablet 11-18 00:00: 00 Yes [id number] EDEMA 1 tablet DAILY 1 tablet DAILY (route: oral) Med Classific ation: Cardiovas cular Therapy Agents metformin 1,000 mg tablet 11-18 00:00: 00 12-11 00:00 :00 No [id number] Unavailable Per instruc tions (1000MG) TWICE DAILY Per instructio ns (1000MG) TWICE DAILY (route: oral) Med Classific ation: Endocrine montelukast 10 mg tablet 11-18 00:00: 00 Yes [id number] ASTHMA 1 tablet AT BEDTIME 1 tablet AT BEDTIME (route: oral) Med Classific ation: Respirato ry Therapy Agents pantoprazol e 40 mg tablet,[facility] y[facility] release 11-18 00:00: 00 Yes [id number] GERD 1 tablet DAILY 1 tablet DAILY (route: oral) Med Classific ation: Gastroint estinal Therapy Agents potassium chloride ER 20 mEq tablet,exte nded release(par t/cryst) 11-18 00:00: 00 12-11 00:00 :00 No [id number] Per instruc tions DAILY Per instructio ns DAILY (route: oral) Med Classific ation: Electroly te Balance-N utritiona l Products tamsulosin 0.4 mg capsule 11-18 00:00: 00 Yes [id number] BPH 1 capsule DAILY AT BEDTIME 1 capsule DAILY AT BEDTIME (route: oral) Med Classific ation: Genitouri nary Therapy triamcinolo ne acetonide 0.1 % topical cream 11-18 00:00: 00 12-11 00:00 :00 No [id number] Per instruc tions TWICE DAILY FOR 5 OUT OF 7 DAYS EUCERIN TWICE DAILY FOR OTHER TWO DAYS OF THE WEEK Per instructio ns TWICE DAILY FOR 5 OUT OF 7 DAYS EUCERIN TWICE DAILY FOR OTHER TWO DAYS OF THE WEEK (route: topical) Med Classific ation: Dermatolo gical valsartan 40 mg tablet 11-18 00:00: 00 12-11 00:00 :00 No [id number] Per instruc tions DAILY Per instructio ns DAILY (route: oral) Med Classific ation: Cardiovas cular Therapy Agents Xarelto 20 mg tablet 6-13 00:00: 00 Yes [id number] BLOOD THINNER 1 tablet DAILY 1 tablet DAILY (route: oral) Med Classific ation: Hematolog ical Agents Lantus U-100 Insulin 100 unit/mL subcutaneou s solution -10 00:00: 00 Yes [id number] DIABETIS 16 unit SUBCUTANEO USLY DAILY AT BEDTIME 16 unit SUBCUTANEO USLY DAILY AT BEDTIME (route: subcutaneo us) Med Classific ation: Endocrine acetaminoph en 500 mg tablet 12-11 00:00: 00 Yes [id number] PAIN 2 tablet EVERY 6 HOURS 2 tablet EVERY 6 HOURS (route: oral) Med Classific ation: Analgesic , Anti-infl ammatory or Antipyret ic aspirin 325 mg tablet 12-11 00:00: 00 Yes [id number] BLOOD THINNER 1 tablet DAILY 1 tablet DAILY (route: oral) Med Classific ation: Analgesic , Anti-infl ammatory or Antipyret ic gabapentin 600 mg tablet 12-11 00:00: 00 Yes [id number] PAIN 1 tablet DAILY 1 tablet DAILY (route: oral) Med Classific ation: Central Nervous System Agents Keppra 500 mg tablet 12-11 00:00: 00 Yes [id number] SEIZURES 2 tablet 2 TIMES DAILY 2 tablet 2 TIMES DAILY (route: oral) Med Classific ation: Central Nervous System Agents Multivitami n 50 Plus tablet 12-11 00:00: 00 Yes [id number] SUPPLEMENT 1 tablet DAILY 1 tablet DAILY (route: oral) Med Classific ation: Electroly te Balance-N utritiona l Products potassium chloride ER 20 mEq tablet,exte nded release 12-11 00:00: 00 Yes [id number] SUPPLEMENT 1 tablet DAILY 1 tablet DAILY (route: oral) Med Classific ation: Electroly te Balance-N utritiona l Products famotidine 20 mg tablet 01-02 00:00: 00 Yes [id number] GERD 1 tablet DAILY 1 tablet DAILY (route: oral) Med Classific ation: Gastroint estinal Therapy Agents pramipexole ER 0.375 mg tablet,exte nded release 24 hr 01-02 00:00: 00 Yes [id number] PARKINSON'S ... 1 tablet DAILY 1 tablet [...] TO EVALUATE, OBSERVE / ASSESS, AND MONITOR, PORTABLE TRACKMAN TO OBSERVE AND MONITOR, PROVIDE SKILLED THERAPEUTIC INTERVENTION, ACTIVITY, EDUCATION, AND TRAINING TO ADDRESS; [code = AGENCY MAY PERFORM A RESUMPTION OF CARE VISIT FOLLOWING ANY HOSPITAL ADMISSION. PT TO EVALUATE, OBSERVE / ASSESS, AND MONITOR, PORTABLE TRACKMAN TO OBSERVE AND MONITOR, PROVIDE SKILLED THERAPEUTIC INTERVENTION, ACTIVITY, EDUCATION, AND TRAINING TO ADDRESS;] Future Scheduled Test SIT TO/FRO M STAND TRANSFERS (PT/PORTABLE TRACKMAN) [code = SIT TO/FROM STAND TRANSFERS (PT/PORTABLE TRACKMAN)] Future Scheduled Test CHAIR ORELLANA SFERS (PT/PORTABLE TRACKMAN) [code = CHAIR TRANSFERS (PT/PORTABLE TRACKMAN)] Future Scheduled Test PT/PORTABLE TRACKMAN TO PROVIDE GAIT TRAINING FOR IMPROVED MOBILITY AND /OR TO NORMALIZE GAIT PATTERN [code = PT/PORTABLE TRACKMAN TO PROVIDE GAIT TRAINING FOR IMPROVED MOBILITY AND /OR TO NORMALIZE GAIT PATTERN] Future Scheduled Test NEUROMUSCU LAR RE-EDUCATION / BALANCE / POSTURAL CONTROL (PT) [code = NEUROMUSCULAR RE-EDUCATION / BALANCE / POSTURAL CONTROL (PT)] Future Scheduled Test THERAPEUTI C EXERCISES AND ESTABLISHING A HOME EXERCISE PROGRAM (PT/PORTABLE TRACKMAN) [code = THERAPEUTIC EXERCISES AND ESTABLISHING A HOME EXERCISE PROGRAM (PT/PORTABLE TRACKMAN)] Future Scheduled Test PT/PORTABLE TRACKMAN TO IDENTIFY FALL RISK FACTORS; EDUCATE THE PATIENT/CAREGIVER ON WAYS TO REDUCE FALL RISK FACTORS AND ESTABLISH HOME EXERCISE PROGRAM TO MINIMIZE FALL RISK. MAY TEACH THE PATIENT FLOOR RECOVERY WHEN CLINICALLY APPROPRIATE [code = PT/PORTABLE TRACKMAN TO IDENTIFY FALL RISK FACTORS; EDUCATE THE PATIENT/CAREGIVER ON WAYS TO REDUCE FALL RISK FACTORS AND ESTABLISH HOME EXERCISE PROGRAM TO MINIMIZE FALL RISK. MAY TEACH THE PATIENT FLOOR RECOVERY WHEN CLINICALLY APPROPRIATE] Future Scheduled Test PT / PORTABLE TRACKMAN T O EDUCATE ON DIABETES SELF- MANAGEMENT [code = PT / PORTABLE TRACKMAN TO EDUCATE ON DIABETES SELF- MANAGEMENT] Future Scheduled Test PT TO ASSE SS / PORTABLE TRACKMAN TO MONITOR FOR HEART FAILURE EXACERBATION AND RECORD PATIENT REPORTED WEIGHT, AND NOTIFY THE PHYSICIAN AND/OR THE RN CLINICAL FIELD ATTENDANT FOR PHYSICIAN NOTIFICATION OF HF EXACERBATION (2LB WEIGHT GAIN IN 1 DAY, 5LBS IN A WEEK OR 5 LBS OVER BASELINE; INCREASED SOB, EDEMA, NEEDING MORE PILLOWS AT NIGHT, CRACKLES IN BASIS OF THE LUNGS OR PMI SHIFT) [code = PT TO ASSESS / PORTABLE TRACKMAN TO MONITOR FOR HEART FAILURE EXACERBATION AND RECORD PATIENT REPORTED WEIGHT, AND NOTIFY THE PHYSICIAN AND/OR THE RN CLINICAL FIELD ATTENDANT FOR PHYSICIAN NOTIFICATION OF HF EXACERBATION (2LB WEIGHT GAIN IN 1 DAY, 5LBS IN A WEEK OR 5 LBS OVER BASELINE; INCREASED SOB, EDEMA, NEEDING MORE PILLOWS AT NIGHT, CRACKLES IN BASIS OF THE LUNGS OR PMI SHIFT)] Future Scheduled Test PT TO ASSE SS / PORTABLE TRACKMAN TO MONITOR FOR AND REPORT EARLY SIGNS OF ANTICOAGULANT TOXICITY TO THE PHYSICIAN AND/OR THE RN CLINICAL FIELD ATTENDANT FOR PHYSICIAN NOTIFICATION AND TO PROVIDE PATIENT/CAREGIVER EDUCATION ON ANTICOAGULANT THERAPY [code = PT TO ASSESS / PORTABLE TRACKMAN TO MONITOR FOR AND REPORT EARLY SIGNS OF ANTICOAGULANT TOXICITY TO THE PHYSICIAN AND/OR THE RN CLINICAL FIELD ATTENDANT FOR PHYSICIAN NOTIFICATION AND TO PROVIDE PATIENT/CAREGIVER EDUCATION ON ANTICOAGULANT THERAPY] Future Scheduled Test PT / PORTABLE TRACKMAN T O MONITOR FOR HYPO/HYPERGLYCEMIA AND CONDUCT ROUTINE FOOT INSPECTIONS. RECORD PATIENT REPORTED BLOOD SUGAR LEVELS AND NOTIFY PHYSICIAN AND/OR THE RN CLINICAL FIELD ATTENDANT FOR PHYSICIAN NOTIFICATION IF BLOOD SUGAR LEVELS ARE OUTSIDE ORDERED PARAMETERS. TEACH PATIENT/CAREGIVER ON DAILY FOOT INSPECTIONS [code = PT / PORTABLE TRACKMAN TO MONITOR FOR HYPO/HYPERGLYCEMIA AND CONDUCT ROUTINE FOOT INSPECTIONS. RECORD PATIENT REPORTED BLOOD SUGAR LEVELS AND NOTIFY PHYSICIAN AND/OR THE RN CLINICAL FIELD ATTENDANT FOR PHYSICIAN NOTIFICATION IF BLOOD SUGAR LEVELS ARE OUTSIDE ORDERED PARAMETERS. TEACH PATIENT/CAREGIVER ON DAILY FOOT INSPECTIONS] Future Scheduled Test SKILLED NU RSING TO EVALUATE FOR MEDICATION EDUCATION ... [code = CARE HOME TO EVALUATE FOR MEDICATION EDUCATION ...] Future [...] FUNCTIONAL TRANSFERS IN HOME ENVIRONMENT. TOILETING HYGIENE (OT/HOOD MAKER) DRESSING (OT/HOOD MAKER) ACTIVITIES OF DAILY LIVING (OT/ANDREZ) TOILET TRANSFER (OT/HOOD MAKER) THERAPEUTIC EXERCISE (OT/ANDREZ) OT / ANDREZ TO EDUCATE ON PACEMAKER SELF-MANAGEMENT OT / ANDREZ TO EDUCATE ON DIABETES SELF- MANAGEMENT OT/ANDREZ TO MONITOR AND EDUCATE ON OXYGEN SATURATION DURING ADLS/IADLS, NOTIFY PHYSICIAN AND/OR THE RN CLINICAL FIELD ATTENDANT FOR PHYSICIAN NOTIFICATION AND IF O2 SATS BELOW 90% AFTER 10 MIN OF REST. OT/ANDREZ TO MONITOR PATIENT WITH STABLE DEPRESSION ON SIGNS AND SYMPTOMS OF WORSENING DEPRESSION AND AVAILABLE RESOURCES INCLUDING [address] [place] [address]. OT/HOOD MAKER MAY EDUCATE ON PAIN MANAGEMENT CLINICALLY INDICATED, INCLUDING NON-PHARMACOLOGICAL PAIN REDUCTION TECHNIQUES OT / HOOD MAKER TO IDENTIFY FALL RISK FACTORS; EDUCATE THE PATIENT/CAREGIVER ON WAYS TO REDUCE FALL RISK FACTORS AND ESTABLISH HOME EXERCISE PROGRAM TO MINIMIZE FALL RISK. MAY TEACH THE PATIENT FLOOR RECOVERY WHEN CLINICALLY APPROPRIATE. OT/HOOD MAKER TO EDUCATE ON HYPERTENSION SELF-MANAGEMENT OT/ANDREZ TO [...] IN HOME ENVIRONMENT. TOILETING HYGIENE (OT/ANDREZ) DRESSING (OT/HOOD MAKER) ACTIVITIES OF DAILY LIVING (OT/ANDREZ) TOILET TRANSFER (OT/HOOD MAKER) THERAPEUTIC EXERCISE (OT/ANDREZ) OT / HOOD MAKER TO EDUCATE ON PACEMAKER SELF-MANAGEMENT OT / HOOD MAKER TO EDUCATE ON DIABETES SELF- MANAGEMENT OT/HOOD MAKER TO MONITOR AND EDUCATE ON OXYGEN SATURATION DURING ADLS/IADLS, NOTIFY PHYSICIAN AND/OR THE RN CLINICAL FIELD ATTENDANT FOR PHYSICIAN NOTIFICATION AND IF O2 SATS BELOW 90% AFTER 10 MIN OF REST. OT/HOOD MAKER TO MONITOR PATIENT WITH STABLE DEPRESSION ON [...] APPROPRIATE. OT/ANDREZ TO EDUCATE ON HYPERTENSION SELF-MANAGEMENT OT/HOOD MAKER TO EDUCATE ON ATRIAL FIBRILLATION SELF-MANAGEMENT. OT [...] OF SKIN BREAKDOWN AND FALL RISK MAX HEAVY ANTIARMOR [employer] INFANTRYMAN TO INDEP IN 8 WEEKS Goal Provider [...] OT LTG: PATIENT WILL DEMONSTRATE IMPROVED LEFT CRYSTAL SLICER STRENGTH EVIDENCED BY AN IMPROVEMENT IN DYNAMOMETER [...] End Date/Time Encounter Type Admission Type Attending [facility] Care Department Encounter ID Discharge Date Discharge Status Discharge Condition Discharge Reason Percent Goals Met 2024-12-11 00:00:00 2025-02-08 00:00:00 Outpatient NEW ADMISSION [facility] [id number] 47.46
--- OUTSIDE RECORDS SUMMARY | 2025-01-20 16:50 | XMS_ITS | Clinical Summary ---
Author Organization [facility] [place] [address] Address [address] [place] [address] Care Team Providers Care Recruiting Operations Consultant Name Role Phone Chelsie Enriquez MD Unavailable [phone] Treasure Johns NP Primary Care Provider [phone] Allergies No known active allergies Medications cetirizine [...] (10/23/2020): Added automatically from request for surgery [id number] Congestive heart failure 10/12/2020 Arteriosclerosis of coronary [...] of right foot Type 2 diabetes mellitus Hypertension Cellulitis right lower leg Diabetic neuropathy [...] on file Legal Sex Male 8:13 PM BEND SORTER Gender Identity Not on file Sexual Orientation Not on file Obstetrics History Last Filed Vital Signs Vital Sign Reading Time Taken Comments Blood Pressure 157/98 05/19/2023 11:59 AM BEND SORTER Pulse 80 05/19/2023 11:59 AM BEND SORTER Temperature 36.2 C (97.2 F) 05/19/2023 11:59 AM BEND SORTER Respiratory Rate 18 05/19/2023 11:5 9 AM BEND SORTER Oxygen Saturation 95% 05/19/2023 11: 59 AM BEND SORTER Inhaled Oxygen Concentration - - Weight 142.5 kg (314 lb 2.5 oz) 05/19/2023 7:52 AM BEND SORTER Height 185.4 cm (6' 1) 05/19/2023 7:52 AM BEND SORTER Body Mass Index 41.45 05/19/2023 7:52 AM BEND SORTER Plan of Treatment Health Maintenance Due Date [...] 08/28/2023 Well Visit 65+ 08/28/2023 Covid-19 Vaccine (4 - 2023- season) 2024 10/22/2021, 05/08/2021, 04/17/2021 Fall Risk Assessment 04/22/2024 04/22/2023, 11/14/19 21 Influenza Vaccine (#1) 2025 Medical Devices Implanted Type Area Real Estate Inspector Device Identifier Shelf Expiration Date Model / Serial / Lot [employer] [id number] Sentus Promri 87cm Quadripolar Otw Thread Distal End Bend Left - [id number] - [id number] Implanted:Qty: 1 on 11/13/2020 by Chelsie Enriquez MD at [facility] Lead [employer] 09/05/2022 [id number] / [id number] / [employer] [id number] Edora 8 Quadripolar Pacemaker Cardiac Hf-T - [id number] - [id number] Implanted:Qty: 1 on 11/13/2020 by Chelsie Enriquez MD at [facility] Pacemaker [employer] [id number] 02/05/2021 [id number] / [id number] / Procedures Procedure Name Priority Date/Time Associated [...] Most Recently Relevant to Health Maintenance Insurance [facility] MEDICARE ADVANTAGE IDPA [facility] [place]ICARE [place] [address] Advance Directives For more information, please contact: [phone] Documents on File Type Date Recorded Patient Performance Makeup Artist Expl anation Power of Mobile Qa Tester 05/19/2023 7:37 AM Care Teams Recruiting Operations Consultant Relationship Specialty Start Date End Date Treasure Johns NP [address] [address] PCP - General Family Medicine 03/02/23 Chelsie Enriquez MD [address] [place] [address] Consulting Physician Cardiology 11/13/20
--- OUTSIDE RECORDS SUMMARY | 2025-01-20 16:50 | XMS_ITS | Clinical Summary ---
Author Organization Unknown Care Team Providers Care Weight Clerk Name Role Phone RUMA BAG FILLER MACHINE OPERATOR, GURMEET Unavailable Unavailable ANITHA PT, BROCK Unavailable Unavailable CHRISTINE PILLOWCASE CLEANER, JAZMINE Unavailable Unavailable MARIVEL OT, MANDY Unavailable Unavailable ALBANIA RN, MEGAN Unavailable Unavailable Payers Payer Name Policy Type Policy Number Effective Date Expira tion Date MEDICARE.[facility] [id number] Problems Condition Name Condition Details Condition Category [...] 12-11 00:00: 00 ATHSCL HEART DISEASE OF [place] CORONARY ARTERY W/O ANG PCTRS Active 12-11 [...] HISTORY OF COVID-19 Active 12-05 00:00: 00 INTERMEDIATE (CURRENT) USE OF INSULIN Active 06-08 00:00: 00 INTERMEDIATE (CURRENT) USE OF ASPIRIN Active 06-08 00:00: [...] on aerosol inhaler 11-24 00:00: 00 Yes [id number] WHEEZING 1 puff EVERY 4 HOURS NEEDED 1 puff EVERY 4 HOURS NEEDED (route: inhalation ) Med Classific ation: Respirato ry Therapy Agents cetirizine 10 mg tablet 11-23 00:00: 00 Yes [id number] ALLERGIES 1 tablet ONCE DAILY 1 tablet ONCE DAILY (route: oral) Med Classific ation: Respirato ry Therapy Agents ferrous sulfate 325 mg (65 mg iron) tablet,[facility] yed release 11-23 00:00: 00 Yes [id number] SUPPLEMENTE D 1 tablet DAILY 1 tablet DAILY (route: oral) Med Classific ation: Electroly te Balance-N utritiona l Products folic acid 1 mg tablet 11-23 00:00: 00 Yes [id number] SUPPLEMENT 1 tablet DAILY 1 tablet DAILY (route: oral) Med Classific ation: Electroly te Balance-N utritiona l Products magnesium oxide 400 mg (241.3 mg magnesium) tablet 11-23 00:00: 00 12-11 00:00 :00 No [id number] Per instruc tions TWICE DAILY Per instructio ns TWICE DAILY (route: oral) Med Classific ation: Electroly te Balance-N utritiona l Products allopurinol 100 mg tablet 11-18 00:00: 00 Yes [id number] GOUT 1 tablet DAILY 1 tablet DAILY (route: oral) Med Classific ation: Gout and Hyperuric emia Therapy atorvastati n 40 mg tablet 11-18 00:00: 00 Yes [id number] HIGH CHOLESTEROL 1 tablet DAILY 1 tablet DAILY (route: oral) Med Classific ation: Cardiovas cular Therapy Agents diltiazem 90 mg tablet 11-18 00:00: 00 12-11 00:00 :00 No [id number] Per instruc tions TWICE DAILY Per instructio ns TWICE DAILY (route: oral) Med Classific ation: Cardiovas cular Therapy Agents furosemide 40 mg tablet 11-18 00:00: 00 Yes [id number] EDEMA 1 tablet DAILY 1 tablet DAILY (route: oral) Med Classific ation: Cardiovas cular Therapy Agents metformin 1,000 mg tablet 11-18 00:00: 00 12-11 00:00 :00 No [id number] Unavailable Per instruc tions (1000MG) TWICE DAILY Per instructio ns (1000MG) TWICE DAILY (route: oral) Med Classific ation: Endocrine montelukast 10 mg tablet 11-18 00:00: 00 Yes [id number] ASTHMA 1 tablet AT BEDTIME 1 tablet AT BEDTIME (route: oral) Med Classific ation: Respirato ry Therapy Agents pantoprazol e 40 mg tablet,[facility] yed release 11-18 00:00: 00 Yes [id number] GERD 1 tablet DAILY 1 tablet DAILY (route: oral) Med Classific ation: Gastroint estinal Therapy Agents potassium chloride ER 20 mEq tablet,exte nded release(par t/cryst) 11-18 00:00: 00 12-11 00:00 :00 No [id number] Per instruc tions DAILY Per instructio ns DAILY (route: oral) Med Classific ation: Electroly te Balance-N utritiona l Products tamsulosin 0.4 mg capsule 11-18 00:00: 00 Yes [id number] BPH 1 capsule DAILY AT BEDTIME 1 capsule DAILY AT BEDTIME (route: oral) Med Classific ation: Genitouri nary Therapy triamcinolo ne acetonide 0.1 % topical cream 11-18 00:00: 00 12-11 00:00 :00 No [id number] Per instruc tions TWICE DAILY FOR 5 OUT OF 7 DAYS EUCERIN TWICE DAILY FOR OTHER TWO DAYS OF THE WEEK Per instructio ns TWICE DAILY FOR 5 OUT OF 7 DAYS EUCERIN TWICE DAILY FOR OTHER TWO DAYS OF THE WEEK (route: topical) Med Classific ation: Dermatolo gical valsartan 40 mg tablet 11-18 00:00: 00 12-11 00:00 :00 No [id number] Per instruc tions DAILY Per instructio ns DAILY (route: oral) Med Classific ation: Cardiovas cular Therapy Agents Xarelto 20 mg tablet 6-13 00:00: 00 Yes [id number] BLOOD THINNER 1 tablet DAILY 1 tablet DAILY (route: oral) Med Classific ation: Hematolog ical Agents Lantus U-100 Insulin 100 unit/mL subcutaneou s solution -10 00:00: 00 Yes [id number] DIABETIS 16 unit SUBCUTANEO USLY DAILY AT BEDTIME 16 unit SUBCUTANEO USLY DAILY AT BEDTIME (route: subcutaneo us) Med Classific ation: Endocrine acetaminoph en 500 mg tablet 12-11 00:00: 00 Yes [id number] PAIN 2 tablet EVERY 6 HOURS 2 tablet EVERY 6 HOURS (route: oral) Med Classific ation: Analgesic , Anti-infl ammatory or Antipyret ic aspirin 325 mg tablet 12-11 00:00: 00 Yes [id number] BLOOD THINNER 1 tablet DAILY 1 tablet DAILY (route: oral) Med Classific ation: Analgesic , Anti-infl ammatory or Antipyret ic gabapentin 600 mg tablet 12-11 00:00: 00 Yes [id number] PAIN 1 tablet DAILY 1 tablet DAILY (route: oral) Med Classific ation: Central Nervous System Agents Keppra 500 mg tablet 12-11 00:00: 00 Yes [id number] SEIZURES 2 tablet 2 TIMES DAILY 2 tablet 2 TIMES DAILY (route: oral) Med Classific ation: Central Nervous System Agents Multivitami n 50 Plus tablet 12-11 00:00: 00 Yes [id number] SUPPLEMENT 1 tablet DAILY 1 tablet DAILY (route: oral) Med Classific ation: Electroly te Balance-N utritiona l Products potassium chloride ER 20 mEq tablet,exte nded release 12-11 00:00: 00 Yes [id number] SUPPLEMENT 1 tablet DAILY 1 tablet DAILY (route: oral) Med Classific ation: Electroly te Balance-N utritiona l Products famotidine 20 mg tablet 01-02 00:00: 00 Yes [id number] GERD 1 tablet DAILY 1 tablet DAILY (route: oral) Med Classific ation: Gastroint estinal Therapy Agents pramipexole ER 0.375 mg tablet,exte nded release 24 hr 01-02 00:00: 00 Yes [id number] [facility] ... 1 tablet DAILY 1 tablet [...] TO EVALUATE, OBSERVE / ASSESS, AND MONITOR, PILLOWCASE CLEANER TO OBSERVE AND MONITOR, PROVIDE SKILLED THERAPEUTIC INTERVENTION, ACTIVITY, EDUCATION, AND TRAINING TO ADDRESS; [code = AGENCY MAY PERFORM A RESUMPTION OF CARE VISIT FOLLOWING ANY HOSPITAL ADMISSION. PT TO EVALUATE, OBSERVE / ASSESS, AND MONITOR, PILLOWCASE CLEANER TO OBSERVE AND MONITOR, PROVIDE SKILLED THERAPEUTIC INTERVENTION, ACTIVITY, EDUCATION, AND TRAINING TO ADDRESS;] Future Scheduled Test SIT TO/FRO M STAND TRANSFERS (PT/PILLOWCASE CLEANER) [code = SIT TO/FROM STAND TRANSFERS (PT/PILLOWCASE CLEANER)] Future Scheduled Test CHAIR ORELLANA SFERS (PT/PILLOWCASE CLEANER) [code = CHAIR TRANSFERS (PT/PILLOWCASE CLEANER)] Future Scheduled Test PT/PILLOWCASE CLEANER TO PROVIDE GAIT TRAINING FOR IMPROVED MOBILITY AND /OR TO NORMALIZE GAIT PATTERN [code = PT/PILLOWCASE CLEANER TO PROVIDE GAIT TRAINING FOR IMPROVED MOBILITY AND /OR TO NORMALIZE GAIT PATTERN] Future Scheduled Test NEUROMUSCU LAR RE-EDUCATION / BALANCE / POSTURAL CONTROL (PT) [code = NEUROMUSCULAR RE-EDUCATION / BALANCE / POSTURAL CONTROL (PT)] Future Scheduled Test THERAPEUTI C EXERCISES AND ESTABLISHING A HOME EXERCISE PROGRAM (PT/PILLOWCASE CLEANER) [code = THERAPEUTIC EXERCISES AND ESTABLISHING A HOME EXERCISE PROGRAM (PT/PILLOWCASE CLEANER)] Future Scheduled Test PT/PILLOWCASE CLEANER TO IDENTIFY FALL RISK FACTORS; EDUCATE THE PATIENT/CAREGIVER ON WAYS TO REDUCE FALL RISK FACTORS AND ESTABLISH HOME EXERCISE PROGRAM TO MINIMIZE FALL RISK. MAY TEACH THE PATIENT FLOOR RECOVERY WHEN CLINICALLY APPROPRIATE [code = PT/PILLOWCASE CLEANER TO IDENTIFY FALL RISK FACTORS; EDUCATE THE PATIENT/CAREGIVER ON WAYS TO REDUCE FALL RISK FACTORS AND ESTABLISH HOME EXERCISE PROGRAM TO MINIMIZE FALL RISK. MAY TEACH THE PATIENT FLOOR RECOVERY WHEN CLINICALLY APPROPRIATE] Future Scheduled Test PT / PILLOWCASE CLEANER T O EDUCATE ON DIABETES SELF- MANAGEMENT [code = PT / PILLOWCASE CLEANER TO EDUCATE ON DIABETES SELF- MANAGEMENT] Future Scheduled Test PT TO ASSE SS / PILLOWCASE CLEANER TO MONITOR FOR HEART FAILURE EXACERBATION AND RECORD PATIENT REPORTED WEIGHT, AND NOTIFY THE PHYSICIAN AND/OR THE RN CLINICAL FASHION JOURNALIST FOR PHYSICIAN NOTIFICATION OF HF EXACERBATION (2LB WEIGHT GAIN IN 1 DAY, 5LBS IN A WEEK OR 5 LBS OVER BASELINE; INCREASED SOB, EDEMA, NEEDING MORE PILLOWS AT NIGHT, CRACKLES IN BASIS OF THE LUNGS OR PMI SHIFT) [code = PT TO ASSESS / PILLOWCASE CLEANER TO MONITOR FOR HEART FAILURE EXACERBATION AND RECORD PATIENT REPORTED WEIGHT, AND NOTIFY THE PHYSICIAN AND/OR THE RN CLINICAL FASHION JOURNALIST FOR PHYSICIAN NOTIFICATION OF HF EXACERBATION (2LB WEIGHT GAIN IN 1 DAY, 5LBS IN A WEEK OR 5 LBS OVER BASELINE; INCREASED SOB, EDEMA, NEEDING MORE PILLOWS AT NIGHT, CRACKLES IN BASIS OF THE LUNGS OR PMI SHIFT)] Future Scheduled Test PT TO ASSE SS / PILLOWCASE CLEANER TO MONITOR FOR AND REPORT EARLY SIGNS OF ANTICOAGULANT TOXICITY TO THE PHYSICIAN AND/OR THE RN CLINICAL FASHION JOURNALIST FOR PHYSICIAN NOTIFICATION AND TO PROVIDE PATIENT/CAREGIVER EDUCATION ON ANTICOAGULANT THERAPY [code = PT TO ASSESS / PILLOWCASE CLEANER TO MONITOR FOR AND REPORT EARLY SIGNS OF ANTICOAGULANT TOXICITY TO THE PHYSICIAN AND/OR THE RN CLINICAL FASHION JOURNALIST FOR PHYSICIAN NOTIFICATION AND TO PROVIDE PATIENT/CAREGIVER EDUCATION ON ANTICOAGULANT THERAPY] Future Scheduled Test PT / PILLOWCASE CLEANER T O MONITOR FOR HYPO/HYPERGLYCEMIA AND CONDUCT ROUTINE FOOT INSPECTIONS. RECORD PATIENT REPORTED BLOOD SUGAR LEVELS AND NOTIFY PHYSICIAN AND/OR THE RN CLINICAL FASHION JOURNALIST FOR PHYSICIAN NOTIFICATION IF BLOOD SUGAR LEVELS ARE OUTSIDE ORDERED PARAMETERS. TEACH PATIENT/CAREGIVER ON DAILY FOOT INSPECTIONS [code = PT / PILLOWCASE CLEANER TO MONITOR FOR HYPO/HYPERGLYCEMIA AND CONDUCT ROUTINE FOOT INSPECTIONS. RECORD PATIENT REPORTED BLOOD SUGAR LEVELS AND NOTIFY PHYSICIAN AND/OR THE RN CLINICAL FASHION JOURNALIST FOR PHYSICIAN NOTIFICATION IF BLOOD SUGAR LEVELS ARE OUTSIDE ORDERED PARAMETERS. TEACH PATIENT/CAREGIVER ON DAILY FOOT INSPECTIONS] Future Scheduled Test SKILLED NU RSING TO EVALUATE FOR MEDICATION EDUCATION ... [code = ALF TO EVALUATE FOR MEDICATION EDUCATION ...] Future [...] FUNCTIONAL TRANSFERS IN HOME ENVIRONMENT. TOILETING HYGIENE (OT/PRINTING TABLE HAND) DRESSING (OT/PRINTING TABLE HAND) ACTIVITIES OF DAILY LIVING (OT/ANDREZ) TOILET TRANSFER (OT/PRINTING TABLE HAND) THERAPEUTIC EXERCISE (OT/ANDREZ) OT / ANDREZ TO EDUCATE ON PACEMAKER SELF-MANAGEMENT OT / ANDREZ TO EDUCATE ON DIABETES SELF- MANAGEMENT OT/ANDREZ TO MONITOR AND EDUCATE ON OXYGEN SATURATION DURING ADLS/IADLS, NOTIFY PHYSICIAN AND/OR THE RN CLINICAL FASHION JOURNALIST FOR PHYSICIAN NOTIFICATION AND IF O2 SATS BELOW 90% AFTER 10 MIN OF REST. OT/ANDREZ TO MONITOR PATIENT WITH STABLE DEPRESSION ON SIGNS AND SYMPTOMS OF WORSENING DEPRESSION AND AVAILABLE RESOURCES INCLUDING [address] [place] [address]. OT/PRINTING TABLE HAND MAY EDUCATE ON PAIN MANAGEMENT CLINICALLY INDICATED, INCLUDING NON-PHARMACOLOGICAL PAIN REDUCTION TECHNIQUES OT / PRINTING TABLE HAND TO IDENTIFY FALL RISK FACTORS; EDUCATE THE PATIENT/CAREGIVER ON WAYS TO REDUCE FALL RISK FACTORS AND ESTABLISH HOME EXERCISE PROGRAM TO MINIMIZE FALL RISK. MAY TEACH THE PATIENT FLOOR RECOVERY WHEN CLINICALLY APPROPRIATE. OT/PRINTING TABLE HAND TO EDUCATE ON HYPERTENSION SELF-MANAGEMENT OT/ANDREZ TO [...] IN HOME ENVIRONMENT. TOILETING HYGIENE (OT/ANDREZ) DRESSING (OT/PRINTING TABLE HAND) ACTIVITIES OF DAILY LIVING (OT/ANDREZ) TOILET TRANSFER (OT/PRINTING TABLE HAND) THERAPEUTIC EXERCISE (OT/ANDREZ) OT / PRINTING TABLE HAND TO EDUCATE ON PACEMAKER SELF-MANAGEMENT OT / PRINTING TABLE HAND TO EDUCATE ON DIABETES SELF- MANAGEMENT OT/PRINTING TABLE HAND TO MONITOR AND EDUCATE ON OXYGEN SATURATION DURING ADLS/IADLS, NOTIFY PHYSICIAN AND/OR THE RN CLINICAL FASHION JOURNALIST FOR PHYSICIAN NOTIFICATION AND IF O2 SATS BELOW 90% AFTER 10 MIN OF REST. OT/PRINTING TABLE HAND TO MONITOR PATIENT WITH STABLE DEPRESSION ON [...] APPROPRIATE. OT/ANDREZ TO EDUCATE ON HYPERTENSION SELF-MANAGEMENT OT/PRINTING TABLE HAND TO EDUCATE ON ATRIAL FIBRILLATION SELF-MANAGEMENT. OT [...] OF SKIN BREAKDOWN AND FALL RISK MAX SOLDER DEPOSIT OPERATOR TO INDEP IN 8 WEEKS Goal [...] OT LTG: PATIENT WILL DEMONSTRATE IMPROVED LEFT CAR HIKER STRENGTH EVIDENCED BY AN IMPROVEMENT IN DYNAMOMETER [...] End Date/Time Encounter Type Admission Type Attending [facility] Care Department Encounter ID Discharge Date Discharge Status Discharge Condition Discharge Reason Percent Goals Met 2024-12-11 00:00:00 2025-02-08 00:00:00 Outpatient NEW ADMISSION [facility] [id number] 47.46
[2025-01-20 16:53] VITALS: BP 127/66; PULSE 80; RESP 16; TEMP 36.6; O2SAT 98
--- NOTE | 2025-01-20 17:43 | ED_ITS ---
HPI - Extremity Injury (Lower) General Chief Complaint: Extremity Injury, Lower Stated Complaint: leg swelling/redness Source: patient Mode of arrival: ambulatory Limitations: no limitations History of Present Illness HPI Narrative: 64-year-old male history diabetes, right BKA, CVA, CHF presented for complaint of left lower leg redness and swelling. States he was seen by his home nurse advised patient needs an antibiotic for cellulitis. States swelling to the leg has been worsening for the past week. Endorses the abrasion to the mota which she says has been draining clear fluid. Prior to onset, he traveled to and from [place] via car. Denies leg pain, nausea, vomiting, diarrhea, fevers or chills. Patient takes Xarelto. Related Data Home Medications ?Medication ?Instructions ?Recorded ?Confirmed ?Last Taken ?Type ascorbic acid (vitamin C) 500 mg mg PO 12/21/24 12/21/24 Unknown History capsule aspirin 325 mg tablet 325 mg PO DAILY 12/21/24 01/20/25 Unknown History levetiracetam 500 mg tablet 500 mg PO Q12H 12/21/24 01/20/25 Unknown History ([place]) Allergies Allergy/AdvReac Type Severity Reaction Status Date / Time No Known Allergies Allergy Verified 12/21/24 09:58 Review of Systems Review of Systems: CONSTITUTIONAL: Denies body aches, fever, chills, or sweats. EYES: Denies visual changes, redness, or discharge. ENT: Denies rhinorrhea, congestion CARDIOVASCULAR: Denies chest pain, palpitations, or edema. RESPIRATORY: Denies cough or dyspnea. GASTROINTESTINAL: Denies abdominal pain, nausea, vomiting, or diarrhea. SKIN: reports redness and swelling LLE MUSCULOSKELETAL: Denies back pain, joint pain, or myalgia. NEUROLOGIC: Denies headache, numbness, tingling, or weakness. [facility] Past Medical History Medical History Pneumonia Altered mental status Rhabdomyolysis Acute kidney injury Elevated liver enzymes Acute sinus infection Diabetic foot ulcer Adenomatous colon polyp (08/29/24) tubulovillous adenomas of the transverse colon on colonoscopy 08/29/2024. COVID Occult blood in stools Acute on chronic anemia Cervical radiculopathy at C6 Right-sided cerebrovascular accident (CVA) Cellulitis of right lower extremity Stasis dermatitis Seasonal allergies Type 2 diabetes mellitus Diabetic foot ulcer Asthma Folate deficiency Hyperlipidemia Uncontrolled hypertension Bilateral cataracts Maturing Diabetic peripheral neuropathy Dyslipidemia Parkinsons disease Kidney stones Depression Gout Essential hypertension Anxiety BPH loc w urin obs/LUTS Chronic atrial fibrillation Coronary artery disease involving [place] heart without angina pectoris Surgical History Surgical History Hx of BKA 05/12/25 Right below-knee amputation, Dr. Ta History of bilateral carpal tunnel release S/P cubital tunnel release Hx of tonsillectomy History of permanent cardiac pacemaker placement (~2015) [place] History of heart artery stent (~2008) Family History Family History Mother Family history of blood dyscrasia Grandparent Alcoholism Social History Social History Social History: He is and lives alone. He has 4 children 1 of which in a motor vehicle collision. He used to work for a [employer] but is now on disability. He smokes about 10 cigarettes a day and has smoked since his early 20s. He reports he quit smoking March 2024. He denies any significant alcohol use. Code status: DNR/DNI (per patient request) Surrogate decision maker: Enedelia Villalpando (friend) Smoking packs per day: 0.5 Smoking cigarettes per day: 10.0 Years smoked: 25 Smoking pack-years: 12.50 Smoking status: Former smoker Second hand tobacco smoke exposure: No Alcohol intake: current Alcohol use details: Occasionally Substance use: never Substance use type: does not use Do You Feel Safe in your Home?: Yes Lack of Transportation: No Lack of Food: Never True Current Housing: I Have Housing Concerned About Future Housing: No Difficulty Paying Gas/Electric Bills: YES Difficulty Paying for Meds: No Currently Unemployed: No Education: High School Diploma/GED Difficulty w/ Childcare or Family Care: No Spiritual care concerns: No Comments At time of signature, I have reviewed and agree with nursing past medical, surgical, social and family history unless otherwise noted. Please see nursing chart for further information. There is no relevant family history pertinent to the presenting complaint Exam Narrative: GENERAL: chronically ill-appearing; no distress. EYES: conjunctivae clear, and EOMI. ENT: Mucous membranes moist. CHEST: Clear to auscultation. HEART: Regular rate and rhythm. SKIN: Warm, dry. Left anterior mota with 1cm ulcerated lesion draining serous fluid. right hand abrasion 2cm, draining serosanguinous fluid. EXT: left lower leg with 4+ pitting edema, circumferential warmth and erythema and peau d'orange skin, evidence of dried serous fluid from abrasion on mota. Ankle with normal ROM. Doppler PP; normal color and temp. CMS intact. Right BKA and prosthesis in place. W/c bound. NEURO: Alert and oriented x3. Course Course Emergency Course: Patient is aware of diagnosis, understands and agrees to treatment plan. Anticipatory guidance given. Patient agrees to follow-up as directed and is aware of reasons to seek care at the emergency department. Portions of this record may have been created with voice recognition software Level of Care: Express Care Visit Vital Signs Vital signs: Vital Signs Temperature 97.8 F 01/20/25 16:53 Pulse Rate 80 01/20/25 16:53 Respiratory Rate 16 01/20/25 16:53 Blood Pressure 127/66 01/20/25 16:53 Pulse Oximetry 98 01/20/25 16:53 Oxygen Delivery Room Air 01/20/25 16:53 Temperature 97.8 F 01/20/25 16:53 Pulse Rate 80 01/20/25 16:53 Respiratory Rate 16 01/20/25 16:53 Blood Pressure 127/66 01/20/25 16:53 Pulse Oximetry 98 01/20/25 16:53 Oxygen Delivery Room Air 01/20/25 16:53 Reviewed MDM - Extremity Injury (Lower) MDM Narrative Medical decision making narrative: Discussed physical exam findings consistent with circumferential cellulitis to the left lower leg. Advised ER transfer. Given patient's unilateral swelling, erythema, and warmth, recent travel, DVT was discussed, however he reports compliance with Xarelto. Discussed possible etiologies including cellulitis that would likely benefit from IV abx and labs. Patient adamantly declines ER transfer stating he spent a long time in rehab after recent BKA. He is aware of the risk of worsening condition, disability and . Family is accompanying patient and will closely monitor and go to the ER if no improvement. Pt will sign AMA, rx abx sent. Right hand wound and left mota wound cleansed with skintegrity, and JUVENAL bandaid applied. The patient is AA&Ox3, free from distracting injury. The patient has demonstra mel concrete thinking/reasoning, has maintained an featherer/reasonable conversation, appears to have intact insight/judgment/reason and therefore has capacity to make decisions. Given the patients presentation, we communicated our concern for LLE edema/cellulitis in laymans terms. The patient verbalized an understanding. The patient is aware the evaluation is incomplete & many troublesome conditions have not been r/o. We have discussed the need for further ED evaluation. We have discussed the range of possible dx, potential testing & treatment options. Weve made efforts to prevent the pt from leaving AMA. Our discussions included the potential outcomes of leaving AMA, including worsening of their condition, becoming permanently disabled/in pain/critically ill, or . Despite these efforts, we were unable to convince the pt to go to the ER. We have attempted to offer tx/rx/guidance for any dangerous conditions which are most likely and/or dangerous. We have answered all questions and have implored the patient to go to ER [facility] to complete the w/u. A staff member witnessed the patient consenting to AMA. Differential Diagnosis Differential diagnosis: Likely other (DVT, CHF, PVD, venous insufficiency, medication related, renal failure, gravitational edema, cellulitis) Discharge Plan Discharge Clinical Impression: Cellulitis Qualifiers: Site of cellulitis: extremity Site of cellulitis of extremity: lower extremity Laterality: left Qualified Code(s): L03.116 - Cellulitis of left lower limb Patient Disposition: Left Against Medical Advice Condition: Stable Patient Language: Libyan Prescriptions: New sulfamethoxazole-trimethoprim [Bactrim DS] 800-160 mg tablet 1 tablet PO Q12H 7 Days Qty: 14 0RF cephalexin 500 mg capsule 500 mg PO Q6H 10 Days Qty: 40 0RF No Action ascorbic acid (vitamin C) 500 mg capsule PO aspirin 325 mg tablet 325 mg PO DAILY levetiracetam [Keppra] 500 mg tablet 500 mg PO Q12H Biofreeze (menthol) 10 % cream 1 applic topical QID PRN (Reason: pain) Qty: 85 11RF Rx Instructions: apply to Left shoulder and Left knee famotidine 20 mg tablet 20 mg PO QHS Qty: 30 11RF gabapentin 600 mg tablet 600 mg PO TID Qty: 90 11RF pantoprazole 40 mg Tablet,Delayed Release (Dr/Ec) 40 mg PO QAM Qty: 30 2RF ferrous sulfate 325 mg (65 mg iron) Tablet,Delayed Release (Dr/Ec) 325 mg PO DAILY Qty: 30 2RF potassium chloride 20 mEq tablet,ER particles/crystals 20 meq PO DAILY Qty: 90 3RF tamsulosin 0.4 mg capsule 0.4 mg PO QHS Qty: 90 3RF folic acid 1 mg tablet 1 mg PO DAILY Qty: 90 3RF Xarelto 20 mg tablet 20 mg PO DAILY Qty: 30 5RF Rx Instructions: must administer with evening meal atorvastatin [Lipitor] 40 mg tablet 40 mg PO DAILY Qty: 90 3RF albuterol sulfate 90 mcg/actuation HFA aerosol inhaler 1 puff inhalation Q4H PRN (Reason: shortness of breath or wheezing) Qty: 25.5 3RF furosemide 40 mg tablet 40 mg PO DAILY Qty: 30 11RF montelukast 10 mg tablet 10 mg PO HS Qty: 30 11RF allopurinol 100 mg tablet 200 mg PO DAILY Qty: 180 0RF Rx Instructions: needs appt for further refills insulin glargine [Lantus Solostar U-100 Insulin] 100 unit/mL (3 mL) insulin pen 16 unit subcut DAILY Qty: 6 2RF (DME) pen needle, diabetic [Aracelis Pen Needle] 32 gauge x 5/32 needle See Rx Instructions .Route Qty: 50 2RF Rx Instructions: use daily with Lantus pen needle (DME) blood-glucose meter [Blood Glucose Monitoring] Kit See Rx Instructions .Route Qty: 1 0RF Rx Instructions: As directed (DME) Blood Glucose Test Strip See Rx Instructions .Route Qty: 100 2RF Rx Instructions: test blood sugar 3x/day as directed valsartan [Diovan] 40 mg tablet 40 mg PO DAILY Qty: 90 3RF triamcinolone acetonide 0.1 % cream 1 applic topical BID Qty: 454 5RF Rx Instructions: APPLY TOPICALLY TWICE DAILY FOR 5 OUT OF 7 DAYS THEN USE EUCERIN TWICE DAILY FOR OTHER TWO DAYS OF THE WEEK cetirizine 10 mg tablet 10 mg PO DAILY Qty: 90 0RF Rx Instructions: pt needs appt for further refills pramipexole 0.75 mg tablet 0.75 mg PO QHS Qty: 30 11RF ipratropium-albuterol 0.5 mg-3 mg(2.5 mg base)/3 mL solution for nebulization 3 ml inhalation Q6H PRN (Reason: shortness of breath) Qty: 180 11RF Follow-up/Referrals: Treasure Johns NP [Primary Care Provider] - Time of Disposition: 18:01
--- NOTE | 2025-01-20 18:09 | PC.NURSE ---
Dopplar pulse to LLE 2+ with dopplar, unable to palpate.
== END 2025-01-20 18:12 | disposition left against medical advice (07) ==
PROVIDERS: Emergency Provider Nurse Practitioner Family; PCP Nurse Practitioner Family
DX: L03.116 Cellulitis of left lower limb (principal); Z87.891 Personal history of nicotine dependence; E11.42 Type 2 diabetes mellitus with diabetic polyneuropathy; G20.A1 Parkinson's disease without dyskinesia, without mention of fluctuations; I11.0 Hypertensive heart disease with heart failure; I50.9 Heart failure, unspecified; N40.1 Benign prostatic hyperplasia with lower urinary tract symptoms; I25.10 Atherosclerotic heart disease of native coronary artery without angina pectoris; I48.20 Chronic atrial fibrillation, unspecified; M62.82 Rhabdomyolysis; Z86.73 Personal history of transient ischemic attack (TIA), and cerebral infarction without residual deficits; J45.909 Unspecified asthma, uncomplicated; E78.5 Hyperlipidemia, unspecified; Z89.511 Acquired absence of right leg below knee; Z95.0 Presence of cardiac pacemaker; Z95.5 Presence of coronary angioplasty implant and graft; Z79.82 Long term (current) use of aspirin
CPT/HCPCS: 99213; G0463